=== PATIENT | male | born 1950 | race Caucasian/White ===

== ENCOUNTER → 2022-06-14 10:56 | Outpatient (BNVA) | payer OTHER, SELFPAY | PROVIDERS: Visit Provider Podiatrist Foot & Ankle Surgery | DX: E11.621 Type 2 diabetes mellitus with foot ulcer (principal); L97.514 Non-pressure 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; E11.42 Type 2 diabetes mellitus with diabetic polyneuropathy; Z89.419 Acquired absence of unspecified great toe | CPT/HCPCS: 11044; 73630; 99204 ==

== ENCOUNTER 2022-06-14 11:33 | Outpatient (CLI) | payer OTHER, SELFPAY | END 2022-06-14 11:34 | disposition home or self-care (01) | LOC: SPT 11:40 | PROVIDERS: Visit Provider Podiatrist Foot & Ankle Surgery | DX: E11.621 Type 2 diabetes mellitus with foot ulcer (principal); L97.509 Non-pressure chronic ulcer of other part of unspecified foot with unspecified severity | CPT/HCPCS: 87070; 87075; 87077; 87205; 97760; 99204; L4361 ==

== ENCOUNTER → 2022-06-14 12:41 | Outpatient (BNVA) | payer OTHER, SELFPAY | PROVIDERS: Visit Provider Podiatrist Foot & Ankle Surgery | DX: Z01.89 Encounter for other specified special examinations (principal) | CPT/HCPCS: 87070; 87075; 87205 ==

== ENCOUNTER 2022-06-22 05:54 | Day surgery (SDC) | payer OTHER, SELFPAY ==
[2022-06-21 17:27] VITALS: BMI 31.4
[2022-06-22] VITALS (9 sets, daily range): BP systolic 107–146; BP diastolic 69–90; PULSE 80–104; RESP 12–20; TEMP 36.3–36.6; O2SAT 94–96
[2022-06-22] MEDS: sodium chloride 0.9% 1,000 ML 30 ML IV (06:38)
--- NOTE | 2022-06-22 06:38 | ANES.PREANE2 ---
Pre-Anesthetic Assessment Height/Weight: Height 1.88 m Weight 111.13 kg O2 Del Method 06/22/22 06:08 Preop Diagnosis: Osteomyelitis right foot Operation Date: 06/22/22 07:00 Proposed Procedures p Transmetatarsal amputation and possible tendo Achilles lengthening right lower extremity 46320,60226,L97.524(Right) - Zachary Melendez DPM s Amputation Transmetatarsal(Right) - Zachary Melendez DPM Familial anesthetic complications: None Was Beta Flor taken within 24 hours: N/A Was Clonidine taken within 24 hours: N/A Last intake: Intake Last Liquid Date 06/21/22 Last Liquid Time 23:00 Last Solid Date 06/21/22 Last Solid Time 17:30 Social Tobacco and No alcohol Exam alert, oriented x 3, clear to auscultation bilaterally and regular rate & rhythm Airway Mallampati: Class III Dentition: full Pulmonary Chronic Obstructive Pulmonary Disease S/p L lung resection CV/HEM Hypertension Metabolic Patient states he's not diabetic 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 Anesthetic Plan ASA status: 3 Anesthesia: MAC Risk of > 500 ml blood loss (7ml/kg in children): No Medications/Allergies Home Medications Medication Instructions Recorded Confirmed Last Taken Type Cam Boot to the right foot #1 ea 06/14/22 06/14/22 Unknown Rx albuterol sulfate 90 mcg/actuation 2 puff inhalation PRN PRN Wheezing 06/14/22 06/22/22 06/22/22 History aerosol inhaler amoxicillin 875 mg-potassium 1 tab PO BID #14 tabs 06/14/22 06/22/22 06/21/22 Rx clavulanate 125 mg tablet prednisone 10 mg tablet 10 mg PO BID 06/14/22 06/22/22 06/21/22 History diltiazem HCl 240 mg capsule,24 240 mg PO DAILY 06/21/22 06/22/22 06/21/22 History hr,extended release fluticasone furoate 200 1 inh inhalation DAILY 06/21/22 06/22/22 06/21/22 History mcg-vilanterol 25 mcg/dose inhalation powder (Breo Ellipta) hydrochlorothiazide 25 mg tablet 25 mg PO DAILY 06/21/22 06/22/22 06/21/22 History lisinopril 20 mg tablet 20 mg PO DAILY 09/05/0506/22/22 06/21/22 History rivaroxaban 20 mg tablet (Xarelto) 20 mg PO DAILY 06/21/22 06/22/22 06/21/22 History tamsulosin 0.4 mg capsule 0.4 mg PO DAILY 06/21/22 06/22/22 06/21/22 History Allergies Allergy/AdvReac Type Severity Reaction Status Date / Time No Known Allergies Allergy Verified 06/22/22 06:14 Data Anesthesia : 06/22/22 06:19 Cardiac Studies: No Data to Display
--- NOTE | 2022-06-22 06:43 | W.PM.OPSUD ---
Surgery/Procedure H&P Update DATE OF PROCEDURE: June 22, 2022 DATE H&P PERFORMED: 06/15/22 CHANGES TO PREVIOUS DOCUMENTATION: None PREOP DIAGNOSIS: Osteomyelitis right foot PLANNED PROCEDURE: Operation Date: 06/22/22 07:00 Proposed Procedures p Transmetatarsal amputation and possible tendo Achilles lengthening right lower extremity 08526,29548,L97.524(Right) - Zachary Melendez DPM s Amputation Transmetatarsal(Right) - Zachary Melendez DPM
[2022-06-22] MEDS: clindamycin 600 MG/50 ML PREMIX 100 MG IV (06:58)
[2022-06-22 07:05] LABS: Anion Gap 15.2 (5-19); Blood Urea Nitrogen 27 mg/dL (8-23); Calcium 9.7 mg/dL (8.5-10.5); Carbon Dioxide 24 mmol/L (22-29); Chloride 103 mmol/L (98-107); Glucose 116 mg/dL (65-115); Osmolality Calculated 292 mOsm/kg (285-295); Potassium 4.2 mmol/L (3.5-5.1); Sodium 138 mmol/L (136-145)
--- NOTE | 2022-06-22 08:01 | XR_ITS ---
WS: [id number] FOOT RIGHT TECHNIQUE: 3 views of the right foot CLINICAL INFORMATION: post op COMPARISON: None. FINDINGS: Postoperative changes surgical amputation 1st through 5th mid metatarsals. Surgical carter. Postoper ative changes are new since June 13, 2012. Screw fixation across the tibiotalar joint. Fibula fixat ion francois. XR/XR foot RT min 3V* [id number] IMPRESSION: Normal for postoperative purposes.
--- NOTE | 2022-06-22 08:01 | PM.OP ---
Operative Report Date of procedure: June 22, 2022 Pre-op diagnosis: Preop Diagnosis Osteomyelitis right foot Post-op diagnosis: Same Procedure done: Right transmetatarsal amputation Implants: 2-0 Vicryl, 3-0 Vicryl, skin carter, 3-0 nylon Specimens removed/disposition: None Pathology: Right third, fourth and fifth toes sent to pathology for permanent Surgeon: Zachary Melendez D.P.M. Link Trainer Mechanic: Adriel Garcia Jaylee Estimated blood loss: 25 29 Brief History: 16-wsht-yrq-old diabetic male with neuropathy with history of right second and great toe amputation presents with a wound probing to bone subthird metatarsal head of the right foot also tracks proximally.? There is a cavernous wound probes deep directly to bone corresponds to area of soft tissue emphysema this was directly probed and debrided.? Predebridement wound measurements 2 cm x 2.5 cm x 2 cm to the right plantar forefoot.? Post debridement wound measurements 2.5 cm x 2.8 cm x 2 cm.? Wound was excisionally and sharply debrided with a dermal curette down to and including bone, was able to debride the plantar aspect of the third metatarsal head of the right foot.? Hemostasis was achieved via manual pressure.? No anesthesia was required secondary to neuropathy.? Area was dressed with Betadine wet-to-dry, offloaded with cam boot.? Will continue with doxycycline previously prescribed twice daily.? Post debridement wound cultures both aerobic and anaerobic taken and sent to microbiology for culture and sensitivity.? Patient is requesting an amputation of the forefoot states that he is tired of the weekly visits for wound care and has noticed a significant worsening of the appearance of the wound, smell of the wound and depth of the wound.? He is wishing to pursue a more definitive level of amputation that will allow him to return to his hobbies and everyday living.? Recommended a transmetatarsal amputation to the right foot with possible Achilles lengthening.? Risks include but are not limited to pain, bleeding, numbness, infection, transfer pressure, transfer lesion, surgical site dehiscence, new wound formation, need for advanced offloading, need for antibiotic treatment and at risk for higher level of amputation.? Patient is agreeable wishes to proceed can be done outpatient as patient is clinically stable. Procedure: Under mild sedation the patient was brought to the operating room and remained on the gurney in supine position. A timeout was performed. Anesthesia was then administered by the anesthesia service. Local anesthesia was injected by myself consisting of 30 cc of 0.5% Marcaine plain in a right ankle block fashion. Well-padded pneumatic tourniquet applied to the right ankle. The right lower extremity was then scrubbed, prepped and draped utilizing normal aseptic technique. No Esmarch or extenuation was performed. There is a full-thickness wound right plantar forefoot probes to bone both of the first metatarsal and third metatarsal. A fishmouth incision full-thickness down to bone was performed with a #10 blade to the right forefoot maintaining a long plantar flap. The metatarsals 1, 2, 3, 4 and 5 were transected at the distal diaphyseal portion utilizing a sagittal saw and all rough edges smoothed with a hand rasp. The right forefoot was passed from operative field and the forefoot including toes 3, 4 and 5 were sent to pathology for permanent. The incision was flushed with copious amounts of sterile saline solution. All bleeders were ligated and cauterized as necessary. The extensor and flexor tendons were transected under traction followed by a second saline flush. The flap was then closed utilizing 2-0 Vicryl, 3-0 Vicryl, skin carter and 3-0 nylon. No tension on the incision appreciated. Margins were well coapted. Tourniquet was deflated and a prompt hyperemic response was noted to the distal amputation site of the right foot. Dressing consisting of Adaptic, sterile 4 x 4, fluff, ABD pad, Kerlix, Ruben wrap and a multilayer compressive posterior splint with ankle in neutral position was applied. Patient tolerated the procedure and anesthesia well and was transferred to the PACU with vital signs able Christeson checked. Following a period of postop monitoring will be discharged home and will continue with oral antibiotics previously prescribed. Hydrocodone 5/325 mg sent to pharmacy of choice electronically. Patient is to keep his postoperative dressing clean, dry and intact until follow-up visit next week. He was given my cell phone number is to contact with any questions or concerns.
--- NOTE | 2022-06-22 08:04 | SUR.PHASEI ---
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 PT ORIENTED X 3 DENIES PAIN AND ANY CHEST PRESSURE OR DISCOMFORT, MONITOR IRREGULAR RYTHM, AFIB/A FLUTTER, IV TO RT WRIST #20 IV NS 150ML UP AT KVO RATE. 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
--- NOTE | 2022-06-22 08:12 | ECG_ITS ---
[facility] Test Date: 2022-06-22 Pat Name: Jace Christie Department: Room: Gender: Male Machine Installer: : 1950 Requested By: Danna Dodd Order Number: [id number] Frederick MD: Shilo Bagley M.D. Measurements Intervals [place] Rate: 89 P: MD: QRS: 44 QRSD: 85 T: 56 QT: 348 QTc: 424 Interpretive Statements ATRIAL FIBRILLATION No previous ECG available for comparison Electronically Signed On 06-23-2022 14:33:51 CDT by Shilo Bagley M.D. [id number]
== END 2022-06-22 09:00 | disposition home or self-care (01) ==
PROVIDERS: Anesthesiology; PCP Podiatrist Foot & Ankle Surgery; Visit Provider Podiatrist Foot & Ankle Surgery
PROC: (CPT 28261; principal; 2022-06-22 07:00)
DX: M86.8X7 Other osteomyelitis, ankle and foot (principal); J44.9 Chronic obstructive pulmonary disease, unspecified; Z90.2 Acquired absence of lung [part of]; I10 Essential (primary) hypertension
CPT/HCPCS: 28810 ×3; 36415; 73630; 80048; 88305; 88311; 93005; J2370; J2704; J3010; J3490; J7030

== ENCOUNTER 2022-07-01 16:37 | Emergency (ER) | payer OTHER, SELFPAY ==
[2022-07-01 16:41] VITALS: BP 105/53; PULSE 111; RESP 22; TEMP 36.3; O2SAT 95; BMI 31.4
--- NOTE | 2022-07-01 17:08 | USR_ITS ---
PROCEDURE INFORMATION: Exam: US Duplex Left Upper Extremity Veins, Limited Exam date and time: 07/01/2022 5:17 PM Age: 72 years old Clinical indication: Edema, localized; Upper extremity, left; Patient HX: PT had foot surgery 1 week ago. I see no iv site in lt arm. Obvious iv sites in RT. ; Additional info: R/O dvt, redness and swelling TECHNIQUE: Imaging protocol: Real-time Duplex ultrasound of the Left Upper Extremity with 2-D ventura scale, color Doppler flow and spectral waveform analysis with image documentation. Limited exam focused on the left upper extremity veins. COMPARISON: No relevant prior studies available. FINDINGS: Left deep veins: Unremarkable. Axillary and brachial veins are patent throughout without thrombus. Normal Doppler waveforms. Normal compressibility and/or augmentation response. Visualized internal jugular and subclavian veins are patent. Left superficial veins: Unremarkable. Visualized cephalic and basilic veins are patent without thrombus. Soft tissues: There is edema in the soft tissues. US/[place] [id number] IMPRESSION: No evidence of deep vein thrombosis. There is edema in the soft tissues.
--- NOTE | 2022-07-01 17:08 | W.ED.EXTPRO ---
HPI - Extremity Problem General: Chief complaint: Extremity Problem,Nontraumatic Stated complaint: Left Arm swelling Time Seen by Provider: 07/01/22 17:00 History of Present Illness: 72-year-old male patient comes in today with complaints of redness and swelling to the left upper extremity. Patient has a chronic history of diabetes and recent surgery for right foot amputation. Patient was started on doxycycline Sunday for cellulitis. Associated symptoms: Deny fever(s) Review of Systems Const: Denies: fever(s) Musc: Reports: extremity pain and extremity swelling Physical Exam Const: COMMON NORMALS: alert HENMT: COMMON NORMALS: normocephalic HEAD & SCALP: normocephalic Neck/C-Spine: COMMON NORMALS: full ROM Resp: COMMON NORMALS: normal respiratory effort Cardio: RATE: tachycardic GI: COMMON NORMALS: Soft to palpation PALPATION: Yes Soft to palpation Extremity: NARRATIVE EXTREMITY EXAM: Patient has redness and swelling extending from the distal upper arm to the hand. Pulses are intact. LEFT UPPER EXTREMITY: Yes elbow joint Left elbow: Yes inspection, Yes lower arm Left lower arm: Yes inspection and Yes wrist Left wrist: Yes inspection Neuro: SENSORIUM/ORIENTATION: Yes alert Course Vital Signs: Vital signs: Vital Signs Temperature 97.4 F L 07/01/22 16:41 Pulse Rate 92 07/01/22 18:30 Respiratory Rate 18 07/01/22 18:30 Blood Pressure 122/76 07/01/22 18:00 Pulse Oximetry 98 07/01/22 18:30 Oxygen Delivery Me thod 07/01/22 16:41 MDM - Extremity (Nontraumatic) Medical Decision Making Patient comes in today for concerns of redness and swelling to the left upper arm. Patient denies any falls or injury. Patient has had recent surgery for partial amputation of the right foot. Patient was seen yesterday and started on doxycycline. Patient is afebrile in the ER. Patient does have some mild increase in pulse and respirations. Differential diagnosis includes cellulitis, DVT, thrombophlebitis. Ultrasound noted no DVT. Patient has only taken 2 doses of his doxycycline. I recommended patient continue on the doxycycline and elevate the extremity on pillows to help with swelling. Patient should follow-up with primary care in 2 to 3 days for recheck. Return to ER for worsening symptoms such as high fever or inability to hold fluids down. Patient reported understanding and agreed to plan. Lab Data Radiology Impressions Venous Duplex 07/01/22 17:08 IMPRESSION: No evidence of deep vein thrombosis. There is edema in the soft tissues. Discharge Plan Discharge Patient Disposition: Home Clinical Impression: Cellulitis Qualifiers: Site of cellulitis: extremity Site of cellulitis of extremity: upper extremity Laterality: left Qualified Code(s): L03.114 - Cellulitis of left upper limb Condition: Stable Prescriptions: No Action albuterol sulfate 90 mcg/actuation HFA aerosol inhaler 2 puff inhalation PRN PRN (Reason: Wheezing) prednisone 10 mg tablet 10 mg PO BID amoxicillin-pot clavulanate 875-125 mg tablet 1 tab PO BID Qty: 14 7RF (DME) Cam Boot to the right foot See Rx Instructions .Route .MEDSUPPLY Qty: 1 0RF Rx Instructions: As directed doxycycline hyclate 100 mg capsule 100 mg PO BID 14 Days Qty: 28 0RF (DME) Crutches See Rx Instructions .Route .MEDSUPPLY Qty: 1 0RF Rx Instructions: As directed by HOME lisinopril 20 mg Tablet 20 mg PO DAILY diltiazem HCl 240 mg Capsule,Extended Release 24 Hr 240 mg PO DAILY tamsulosin 0.4 mg Capsule 0.4 mg PO DAILY hydrochlorothiazide 25 mg Tablet 25 mg PO DAILY Xarelto 20 mg Tablet 20 mg PO DAILY Rx Instructions: must administer with evening meal fluticasone furoate-vilanterol [Breo Ellipta] 200-25 mcg/dose Blister With Device 1 inh INHALATION DAILY Discharge Orders: Discharge ED (Routine); Ordered 07/01/22 Ordered By: Elfego Martínez Referrals: Zachary Melendez DPM [Primary Care Provider] - Discharge Diet: Usual diet Discharge Activity: Increase activity as tolerated Patient Instructions: Cellulitis (ED) Activity Restrictions/Additional Instructions: Home and elevate left extremity on pillows to keep at or above the level of the heart. Continue with doxycycline 100 mg twice a day. Follow-up with primary care in 2 to 3 days for recheck. Return to ER for worsening symptoms such as fever greater than 100.4, uncontrolled pain, or new concerns. Coding Level of Care Code ED Engine Research Engineer for Len Fwd Exam Detailed
[2022-07-01 17:50] VITALS: BP 104/52; PULSE 102; RESP 19; O2SAT 93
--- NOTE | 2022-07-01 17:59 | PC.NURSE ---
pt reported edema to LUE and LLE for last few days. reports today his arm started weaping. denies any pain, denies chest pain, dyspnea, fevers, or any known bug bites. pt reports he checked for bites and didnt see any. pt reports he has hx of copd, asthma, and afib and has been out of afib meds and blood thinner for last couple days. reports they are being mailed to him and he hasnt received them yet. mild expiratory wheezes heard throughtout. significant edema noted to LLE and LUE with weaping visualized. speech clear. speaking in complete sentences without difficulty. pt connected to VS monitor including threat monitoring analyst.
[2022-07-01 18:00] VITALS: BP 122/76; PULSE 96; RESP 22; O2SAT 95
[2022-07-01] MEDS: rivaroxaban 10 mg Tablet 20 MG PO (18:28)
[2022-07-01] MEDS: dilTIAZem ER (24HR) 240 mg Capsule PO (18:28)
[2022-07-01 18:30] VITALS: PULSE 92; RESP 18; O2SAT 98
== END 2022-07-01 18:43 | disposition home or self-care (01) ==
PROVIDERS: Emergency Provider Nurse Practitioner Family; PCP Podiatrist Foot & Ankle Surgery
DX: L03.114 Cellulitis of left upper limb (principal); M79.89 Other specified soft tissue disorders
CPT/HCPCS: 93971; 99284

== ENCOUNTER → 2022-07-13 14:27 | Outpatient (BNVA) | payer OTHER, SELFPAY | PROVIDERS: PCP Podiatrist Foot & Ankle Surgery; Visit Provider Podiatrist Foot & Ankle Surgery | DX: Z98.890 Other specified postprocedural states (principal); Z89.411 Acquired absence of right great toe; Z89.421 Acquired absence of other right toe(s); L97.519 Non-pressure chronic ulcer of other part of right foot with unspecified severity; E11.42 Type 2 diabetes mellitus with diabetic polyneuropathy; E11.621 Type 2 diabetes mellitus with foot ulcer; T87.81 Dehiscence of amputation stump | CPT/HCPCS: 11042; 99024 ==

== ENCOUNTER → 2022-07-20 14:23 | Outpatient (BNVA) | payer OTHER, SELFPAY | PROVIDERS: PCP Podiatrist Foot & Ankle Surgery; Visit Provider Podiatrist Foot & Ankle Surgery | DX: E11.42 Type 2 diabetes mellitus with diabetic polyneuropathy (principal); Z89.419 Acquired absence of unspecified great toe; Z89.431 Acquired absence of right foot; T87.81 Dehiscence of amputation stump; Z98.890 Other specified postprocedural states; E11.621 Type 2 diabetes mellitus with foot ulcer; L97.519 Non-pressure chronic ulcer of other part of right foot with unspecified severity | CPT/HCPCS: 99024 ==

== ENCOUNTER → 2022-07-27 13:45 | Outpatient (BNVA) | payer OTHER, SELFPAY | PROVIDERS: PCP Podiatrist Foot & Ankle Surgery; Visit Provider Podiatrist Foot & Ankle Surgery | DX: E11.42 Type 2 diabetes mellitus with diabetic polyneuropathy (principal); E11.621 Type 2 diabetes mellitus with foot ulcer; L97.519 Non-pressure chronic ulcer of other part of right foot with unspecified severity; Z89.419 Acquired absence of unspecified great toe; Z89.431 Acquired absence of right foot; T87.81 Dehiscence of amputation stump; Y83.8 Other surgical procedures as the cause of abnormal reaction of the patient, or of later complication, without mention of misadventure at the time of the procedure; Z98.890 Other specified postprocedural states | CPT/HCPCS: 99214 ==

== ENCOUNTER → 2022-08-03 14:23 | Outpatient (BNVA) | payer OTHER, SELFPAY | PROVIDERS: PCP Podiatrist Foot & Ankle Surgery; Visit Provider Podiatrist Foot & Ankle Surgery | DX: Z98.890 Other specified postprocedural states (principal); E11.42 Type 2 diabetes mellitus with diabetic polyneuropathy; Z89.431 Acquired absence of right foot; T87.81 Dehiscence of amputation stump; E11.621 Type 2 diabetes mellitus with foot ulcer; L97.519 Non-pressure chronic ulcer of other part of right foot with unspecified severity; Y83.8 Other surgical procedures as the cause of abnormal reaction of the patient, or of later complication, without mention of misadventure at the time of the procedure | CPT/HCPCS: 99214 ==

== ENCOUNTER → 2022-08-09 13:55 | Outpatient (BNVA) | payer OTHER, SELFPAY | PROVIDERS: PCP Podiatrist Foot & Ankle Surgery; Visit Provider Podiatrist Foot & Ankle Surgery | DX: E11.621 Type 2 diabetes mellitus with foot ulcer (principal); L97.514 Non-pressure 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; T87.81 Dehiscence of amputation stump; E11.42 Type 2 diabetes mellitus with diabetic polyneuropathy; Z89.431 Acquired absence of right foot | CPT/HCPCS: 99214; 99215 ==

== ENCOUNTER 2022-08-11 10:42 | Day surgery (SDC) | payer OTHER, SELFPAY ==
[2022-08-10 15:06] VITALS: BMI 30.8
[2022-08-11] VITALS (8 sets, daily range): BP systolic 109–137; BP diastolic 54–74; PULSE 66–75; RESP 16–18; TEMP 36.4–37.4; O2SAT 93–98
--- NOTE | 2022-08-11 11:56 | W.PM.OPSUD ---
Surgery/Procedure H&P Update DATE OF PROCEDURE: August 11, 2022 DATE H&P PERFORMED: 08/09/22 CHANGES TO PREVIOUS DOCUMENTATION: none PREOP DIAGNOSIS: Osteomyelitis right foot PLANNED PROCEDURE: Operation Date: 08/11/22 12:20 Proposed Procedures p Incision and debridement down to bone right foot 32495,M86.471(Not Applicable) - Zachary Melendez DPM
[2022-08-11] MEDS: sodium chloride 0.9% 1,000 ML 30 ML IV (11:59)
[2022-08-11 12:11] LABS: Glucose Point of Care 120 mg/dL (70-110)
--- NOTE | 2022-08-11 12:12 | P.ANESASSM_ITS ---
Pre-Anesthetic Assessment Height/Weight: Height 1.88 m Weight 108.862 kg Temp Pulse Resp BP Pulse Ox O2 Del Method 97.6 F 68 18 137/74 97 08/11/22 11:05 08/11/22 11:05 08/11/22 11:05 08/11/22 11:05 08/11/22 11:05 08/11/22 11:06 Preop Diagnosis: Osteomyelitis right foot Operation Date: 08/11/22 12:20 Proposed Procedures p Incision and debridement down to bone right foot 65006,M86.471(Not Applicable) - Zachary Melendez DPM Familial anesthetic complications: none Was Beta Flor taken within 24 hours: N/A Was Clonidine taken within 24 hours: N/A Last intake: Intake Last Liquid Date 08/10/22 Last Liquid Time 22:30 Last Solid Date 08/10/22 Last Solid Time 22:30 Last Intake: 22:30 Social Tobacco and No alcohol 1/2 pack(s) per day 50+ pack years Exam alert, oriented x 3, clear to auscultation bilaterally (dim left upper) and regular rate & rhythm Airway Submandibular: within normal limits Cervical ROM: within normal limits Dentition: partials Pulmonary Chronic Obstructive Pulmonary Disease, Cough and Exertional Dyspnea CV/HEM Atrial Fibrillation (hx) and Hypertension None reported Hepatic None reported GI None reported Metabolic Diabetes Mellitus (avg 100-150) [facility] [place] None reported Neuropsych None reported Anesthetic Plan ASA status: 3 Anesthesia: MAC Medications/Allergies Home Medications Medication Instructions Recorded Confirmed Last Taken Type Cam Boot to the right foot #1 ea 06/14/22 08/09/22 Unknown Rx albuterol sulfate 90 mcg/actuation 2 puff inhalation PRN PRN Wheezing 06/14/22 08/11/22 08/11/22 08:00 History aerosol inhaler prednisone 10 mg tablet 10 mg PO BID 06/14/22 08/11/22 08/11/22 History diltiazem HCl 240 mg capsule,24 240 mg PO DAILY 06/21/22 08/11/22 08/11/22 History hr,extended release fluticasone furoate 200 1 inh inhalation DAILY 06/21/22 08/11/22 08/11/22 History mcg-vilanterol 25 mcg/dose inhalation powder (Breo Ellipta) hydrochlorothiazide 25 mg tablet 25 mg PO DAILY 06/21/22 08/11/22 08/10/22 History lisinopril 20 mg tablet 20 mg PO DAILY 06/21/22 08/11/22 08/10/22 History rivaroxaban 20 mg tablet (Xarelto) 20 mg PO DAILY 06/21/22 08/11/22 08/09/22 History tamsulosin 0.4 mg capsule 0.4 mg PO DAILY 06/21/22 08/11/22 08/11/22 History Crutches #1 ea 06/22/22 08/09/22 Unknown Rx hydrocodone 5 mg-acetaminophen 325 1 tab PO Q6H PRN pain 7 days #14 08/10/22 Unknown Rx mg tablet tabs clindamycin HCl 300 mg capsule 300 mg PO DAILY 08/11/22 08/11/22 08/11/22 History Allergies Allergy/AdvReac Type Severity Reaction Status Date / Time No Known Allergies Allergy Verified 08/10/22 15:02 Current Medications Generic Name Dose Route Start Last Admin Trade Name Freq PRN Reason Stop Dose Admin Sodium Chloride 1,000 mls @ 30 mls/hr 08/11/22 11:00 08/11/22 11:59 Sodium Chloride 0.9% IV 08/12/22 10:59 30 mls/hr .Q24H JOSÉ MIGUEL Administration PFSH Anesthesia Social History Smoking and tobacco status: current every day smoker Data Anesthesia : 08/11/22 11:30 Cardiac Studies: No Data to Display
[2022-08-11] MEDS: clindamycin 600 MG/50 ML PREMIX 100 MG IV (12:20)
[2022-08-11 12:25] LABS: Blood Urea Nitrogen 34 mg/dL (8-23); Calcium 9.4 mg/dL (8.5-10.5); Carbon Dioxide 22 mmol/L (22-29); Chloride 102 mmol/L (98-107); Glucose 107 mg/dL (65-115); Osmolality Calculated 294 mOsm/kg (285-295); Sodium 138 mmol/L (136-145)
[2022-08-11 12:29] LABS: Anion Gap 18.3 (5-19); Potassium 4.3 mmol/L (3.5-5.1)
--- NOTE | 2022-08-11 13:35 | P.OP_ITS ---
Operative Report Date of procedure: 08/11/2022 Pre-op diagnosis: Preop Diagnosis Osteomyelitis right foot Post-op diagnosis: Wound probes to bone, osteomyelitis right foot Post-op findings: Wound probed to bone with exposed first metatarsal right foot Procedure done: Incision and debridement down to and including bone right foot. CPT code 71839 Insertion of antibiotic impregnated cement spacer right foot. CPT code 30346 Implants: 3-0 Vicryl, 3-0 nylon, Simplex P with tobramycin. Specimens removed/disposition: Right first metatarsal bone sent to microbiology for gram stain and culture. Pathology: None Surgeon: Zachary Melendez D.P.M. Electrician Rectifier Maintenance: Padmini Estimated blood loss: 5 See intraoperative documentation IV fluids: None Urine output: None Complications: None Findings: Devitalized bone at the very distal remaining aspect of the right first metatarsal. Brief History: At last visit patient was placed on Levaquin daily 750 mg has tolerated this well.? Has had persistent dehiscence, wound exposed bone for 2 weeks, no additional soft tissue coverage or granulation tissue appreciated.? Serous drainage that is persistent.? Has been doing local wound care, oral antibiotics, decreased activity, offloading and home health.? Patient is getting frustrated with the persistence of the wound at this location, states that this is where it all started and initially lost his great toe and is continued to progress.? Discussed revisional TMA versus incision and debridement down to bone at the right first metatarsal, beveling of the right first metatarsal, additional bone biopsy and primary delayed closure.? I reviewed at length with the patient, the risks, potential complications, benefits, alternatives, expectations, and typical outcomes associated with the surgery. The risks and potential complications were explained in detail, including but not limited to infection, wound dehiscence or soft tissue complications, bleeding and hematoma, chronic edema, neuritis or nerve damage producing numbness or chronic pain, CRPS, failure to relieve pain or worsening pain, thick / painful / unsightly scar, limited motion / stiffness, malposition, delayed union, malunion, or nonunion, fracture, reaction to implants, anesthetic complications, venous thromboembolism, and deformity recurrence.? I discussed the notion of no regrets with the patient as it pertains to complications and outcomes. The patient seemed to understand the nature of the proposed care and required convalescence. They asked appropriate questions, answered to their satisfaction. They are aware no guarantees can be made as to a satisfactory outcome and they understand there may be other possible unforeseen complications or outcomes not listed here that will be treated accordingly if they arise. There were no written or implied guarantees given to the patient. They gave informed consent to proceed.? Patient will continue daily dressing changes with Iodosorb, continue offloading with cam boot, continue keeping the right foot clean and dry and avoid getting wet when showering.? Patient is n.p.o. since midnight. Wishes to proceed with surgical debridement, informed consent signed by patient and myself. I initialed patient's right lower extremity. Procedure: Under mild sedation the patient was brought to the operating room and remained on the gurney in supine position. A timeout was performed. Anesthesia was then administered by the anesthesia service. Local anesthesia injected by myself consisting of one-to-one mixture lidocaine and Marcaine plain, 1% lidocaine and 0.25% Marcaine total of 25 cc utilized and a proximal Glynn block fashion to the right foot. Well-padded pneumatic tourniquet applied to the right ankle. The right lower extreme was then scrubbed, prepped and draped utilizing normal aseptic technique. Right foot was elevated and the tourniquet inflated to 250 mmHg. Attention was directed to the right distal medial foot where a full-thickness wound with exposed first metatarsal was visualized. First metatarsal exposed into the wound had a dusky yellowish-ventura color with decreased density. The wound was excised circumferentially down to healthier margins utilizing a #15 blade followed by resection of the distal aspect of the right first metatarsal utilizing a sagittal saw in a beveled fashion, bone was passed from the operative field and sent to microbiology for gram stain and culture. The level of resection appear to have viable appropriate density in color at the first metatarsal osteotomy site. Power rasp utilized to smooth all edges of the first metatarsal these were well rounded and smoothed. The incision was flushed with copious amounts of sterile skin solution. After having performed the above sharp debridement utilizing pickups and a #15 blade of all devitalized soft tissue down to bone the incision was irrigated with copious amounts of sterile saline solution. The medullary canal of the first metatarsal was packed with Simplex P with tobramycin. Further irrigation was performed followed by wound closure with 3-0 Vicryl and 3-0 nylon with excellent skin apposition without excessive tension. Incision was dressed with Adaptic, sterile 4 x 4's, Kerlix, Ruben wrap and cam boot was then applied. Tourniquet was deflated and a prompt hyperemic response was noted to the distal amputation site of the right foot. Patient tolerated the procedure well and was transferred to the PACU with vital signs stable and vascular status intact. He will continue antibiotics previously prescribed. Follow-up in podiatry clinic next week. He is to reduce his activities, rest and elevate his right foot.
--- NOTE | 2022-08-11 16:21 | ANE.PACU2 ---
Inpatient post-anesthesia follow up: Airway intact: Yes Vital signs: Temperature 98.0 F Pulse Rate 70 Respiratory Rate 18 Blood Pressure 127/67 Pulse Oximetry 96 Oxygen Delivery Me thod Room Air Oxygen Flow Rate 6 Fraction of Inspir ed Oxygen Hydration adequate: Yes Nausea and vomiting: No Pain level: 2 Mental status: Baseline
== END 2022-08-11 14:15 | disposition home or self-care (01) ==
PROVIDERS: Visit Provider Podiatrist Foot & Ankle Surgery
PROC: (CPT 11981; principal; 2022-08-11 12:10)
DX: M86.8X7 Other osteomyelitis, ankle and foot (principal); F17.210 Nicotine dependence, cigarettes, uncomplicated; I48.91 Unspecified atrial fibrillation; I10 Essential (primary) hypertension; E11.9 Type 2 diabetes mellitus without complications
CPT/HCPCS: 11981; 28005; 36416; 80048; 82962; 87070; 87077; 87176; 87186; 87205; J1100; J2405; J2704; J3010; J3490; J7030

== ENCOUNTER → 2022-08-17 15:25 | Outpatient (BNVA) | payer OTHER, SELFPAY | PROVIDERS: Visit Provider Podiatrist Foot & Ankle Surgery | DX: Z98.890 Other specified postprocedural states (principal); E11.42 Type 2 diabetes mellitus with diabetic polyneuropathy; Z89.431 Acquired absence of right foot; T87.81 Dehiscence of amputation stump; E11.621 Type 2 diabetes mellitus with foot ulcer; L97.514 Non-pressure 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 | CPT/HCPCS: 99024 ==

== ENCOUNTER 2022-08-25 11:27 | Inpatient (IN) | payer OTHER, SELFPAY ==
[2022-08-25] VITALS (8 sets, daily range): BP systolic 122–152; BP diastolic 65–87; PULSE 66–81; RESP 18–24; TEMP 36.3–36.6; O2SAT 84–95; BMI 30.8
--- NOTE | 2022-08-25 12:20 | XRR_ITS ---
PROCEDURE INFORMATION: Exam: XR Chest Exam date and time: 08/25/2022 1:27 PM Age: 72 years old Clinical indication: Shortness of breath; Prior surgery; Surgery date: <1 month; Surgery type: Left lung due to trauma; Patient HX: SOB, pressure/fluid, coughing up mucous, pain in left side of chest that radiates around to the mid back lower lung. HX of left lung surgery. X 2 wks TECHNIQUE: Imaging protocol: Radiologic exam of the chest. Views: 1 view. COMPARISON: No relevant prior studies available. FINDINGS: Lungs: Interstitial congestion right lower lobe. The lungs are otherwise clear Pleural spaces: Unremarkable. No pleural effusion. No pneumothorax. Heart/Mediastinum: Unremarkable. No cardiomegaly. Bones/joints: Postoperative rib resection is seen the left hemithorax XR/XR chest 1V portable [id number] IMPRESSION: 1. Interstitial congestion right lower lobe 2. Postoperative 7th rib resection left hemithorax 3. No acute findings.
[2022-08-25 12:30] LABS: Basophils % 0.1 %; Hematocrit 37.5 % (42.0-52.0); Hemoglobin 12.5 g/dL (11.7-16.6); Lymphocytes # 0.4 10^3/uL (0.8-4.8); Lymphocytes % 3.8 %; Mean Corpuscular HGB Conc 33.3 g/dL (30.0-36.0); Mean Corpuscular Hemoglobin 30.9 pg (28.0-34.0); Mean Corpuscular Volume 92.6 fl (80-94); Mean Platelet Volume 9.6 fL (7.4-10.4); Monocytes # 0.4 10^3/uL (0.2-0.9); Monocytes % 3.3 %; Neutrophils # 9.61 10^3/uL (1.8-7.7); Neutrophils % 91.4 %; Nucleated Red Blood Cells % 0 %; Platelet Count 221 10^3/cmm (130-400); Red Blood Count 4.05 10^6/uL (4.1-5.3); White Blood Count 10.5 10^3/uL (4.0-10.0)
--- NOTE | 2022-08-25 12:41 | PC.PHAR ---
pt states he takes care of his own medications-pt states he thinks his diltiazem is the 240mg capsule daily that was on a previous entered med list-waiting for [facility] to fax med list
[2022-08-25 12:44] LABS: INR 1.15 (0.8-1.2)
[2022-08-25 12:45] LABS: Partial Thromboplastin Time 28.2 SECONDS (23.9-36.7)
[2022-08-25 12:52] LABS: Alanine Aminotransferase 28 U/L (0-41); Albumin Level 3.7 g/dL (3.5-5.2); Alkaline Phosphatase 114 U/L (40-130); Aspartate Amino Transferase 15 U/L (0-40); Chloride 98 mmol/L (98-107); Globulin 2.4 g/dL (1.3-4.6); Potassium 3.6 mmol/L (3.5-5.1)
[2022-08-25 12:53] LABS: Troponin(5th) Baseline 27 ng/L (0-15)
--- NOTE | 2022-08-25 13:15 | ECG_ITS ---
[facility] Test Date: 2022-08-25 Pat Name: Jace Christie Department: Room: Gender: Male Run Lead: : 1950 Requested By: Jana Araiza Order Number: [id number] Frederick MD: Michelle Torres M.D. Measurements Intervals [place] Rate: 65 P: 74 [place]: 186 QRS: 79 QRSD: 86 T: 81 QT: 385 QTc: 402 Interpretive Statements SINUS RHYTHM WITH OCCASIONAL VENTRICULAR PREMATURE COMPLEXES Compared to ECG 06/22/2022 08:12:05 Ventricular premature complex(es) now present Atrial fibrillation no longer present Electronically Signed On 08-26-2022 14:53:52 CONTROLLER REPAIRER AND TESTER by Michelle Torres M.D. [id number]
--- NOTE | 2022-08-25 13:26 | W.ED.SOB ---
HPI - SOB/Dyspnea General: Chief Complaint: Shortness of Breath/Dyspnea Stated Complaint: sob Time Seen by Provider: 08/25/22 13:04 Source: patient Mode of arrival: ambulatory History of Present Illness: HPI Narrative: 72-year-old male presents emergency room planing increasing shortness of breath over the last 7 days. He has had a productive cough with a low-grade fever. He is not usually on oxygen on arrival here he 73% on room air. Actually progressively worsened after arriving here. Later in the visit he Ginty satting to 84% on room air and was started on nasal cannula at 5 L. Denies any chest or abdominal pain. MD elicited complaint: shortness of breath and cough Pertinent past history: COPD Onset (ago): week(s) (1) Context: recent illness Timing: constant Severity: moderate Exacerbating factors: exertion and coughing Relieving factors: oxygen, rest and bronchodilators Known history of: COPD Associated symptoms: Reports chest congestion and cough; Deny abdominal pain, chest pain, diaphoresis, dizziness, extremity pain, fever(s), hemoptysis, lightheadedness, myalgias, nausea, orthopnea, palpitations, paresthesias, polydipsia, polyuria, rash, sense of impending doom, syncope or vomiting Treatment prior to arrival: none Review of Systems Const: Denies: fever(s), chills, fatigue, malaise or diaphoresis ENMT: Denies: throat pain, ear or mastoid pain, nasal discharge or nasal congestion Card: Denies: chest pain, palpitations, irregular heart rhythm, edema, lightheadedness, syncope or orthopnea Resp: Reports: dyspnea, productive cough, wheezing and chest congestion; Denies: non-productive cough or hemoptysis GI: Denies: abdominal pain, nausea or vomiting : Denies: flank pain, dysuria, urinary frequency or urinary urgency Musc: Denies: extremity pain Skin/Breast: Denies: rash or pruritus Neuro: Denies: dizziness Endo: Denies: polyuria or polydipsia PFS ED PFSH: Medical History COPD exacerbation COVID Dehiscence of amputation stump of right lower extremity Diabetic peripheral neuropathy associated with type 2 diabetes mellitus History of amputation of great toe Hyperglycemia Hypoxemia Non-pressure 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 Surgical History S/P foot surgery, right 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 Family History Denies family history of Cancer Social History Smoking and tobacco status: current every day smoker Physical Exam Const: GENERAL APPEARANCE: cooperative and comfortable ORIENTATION/CONSCIOUSNESS: Yes awake, Yes oriented to person, Yes oriented to place and Yes oriented to time HENMT: COMMON NORMALS: normocephalic, atraumatic and hearing grossly normal bilaterally HEAD & SCALP: normocephalic and atraumatic Resp: AUSCULTATION: rhonchi and wheezes Cardio: COMMON NORMALS: regular rate, regular rhythm and No murmurs present (Cardio) RATE: regular rate RHYTHM: regular rhythm GI: COMMON NORMALS: Soft to palpation and No hepatosplenomegaly present AUSCULTATION: Yes normoactive bowel sounds PALPATION: Yes Soft to palpation, No Tenderness to palpation present (GI), No Guarding due to palpation present (GI) and Yes No hepatosplenomegaly present Extremity: OTHER: To 3+ edema left lower extremity. Surgically absent digits on the right foot with the foot dressing in place. No active drainage no erythema. Neuro: SENSORIUM/ORIENTATION: Yes oriented to person, Yes oriented to place and Yes oriented to time Skin: COMMON NORMALS: no rashes or lesions noted GENERAL SKIN EXAM: no rashes or lesions noted Course Vital Signs: Vital signs: Vital Signs Temperature 97.9 F 08/29/22 11:24 Pulse Rate 68 08/29/22 11:31 Respiratory Rate 16 08/29/22 11:24 Blood Pressure 114/67 08/29/22 11:24 Pulse Oximetry 95 08/29/22 11:24 Oxygen Delivery Me thod 08/29/22 11:24 Oxygen Flow Rate 5 08/29/22 11:23 MDM - SOB/Dyspnea Medical Decision Making Exacerbation COPD with significant oxygen requirement. Will admit discussed with hospitalist with aggressive pulmonary toilet and steroids. Medical Records I reviewed the patient's medical records. Lab Data I reviewed the patient's lab results. 08/28/22 05:00 08/29/22 04:38 Labs/Radiology: Radiology Impressions Chest X-Ray 08/25/22 12:20 IMPRESSION: 1. Interstitial congestion right lower lobe 2. Postoperative 7th rib resection left hemithorax 3. No acute findings. Chest CTA 08/25/22 13:33 IMPRESSION: 1. Negative for pulmonary embolism 2. Diffuse emphysematous changes in both lungs. 3. Chronic interstitial lung disease right mid and lower lobe . 4. Benign cyst left hepatic lobe. 5. Negative for right heart strain . 6. Calcified pleural plaque left lateral chest wall Laboratory Results WBC 10.5 10^3/uL (4.0-10.0) H 08/25/22 12:23 RBC 4.05 10^6/uL (4.1-5.3) L 08/25/22 12:23 Hgb 12.5 g/dL (11.7-16.6) 08/25/22 12:23 Hct 37.5 % (42.0-52.0) L 08/25/22 12:23 MCV 92.6 fl (80-94) 08/25/22 12:23 MCH 30.9 pg (28.0-34.0) 08/25/22 12:23 MCHC 33.3 g/dL (30.0-36.0) 08/25/22 12:23 RDW 15.0 % (12.1-15.1) 08/25/22 12:23 Plt Count 221 10^3/cmm (130-400) 08/25/22 12:23 MPV 9.6 fL (7.4-10.4) 08/25/22 12:23 Neut % (Auto) 91.4 % 08/25/22 12:23 Lymph % (Auto) 3.8 % 08/25/22 12:23 Mason % (Auto) 3.3 % 08/25/22 12:23 Eos % (Auto) 0.0 % 08/25/22 12:23 Baso % (Auto) 0.1 % 08/25/22 12:23 Neut # (Auto) 9.61 10^3/uL (1.8-7.7) H 08/25/22 12:23 Lymph # (Auto) 0.4 10^3/uL (0.8-4.8) L 08/25/22 12:23 Mason # (Auto) 0.4 10^3/uL (0.2-0.9) 08/25/22 12:23 Eos # (Auto) 0.0 10^3/uL (0.0-0.8) 08/25/22 12:23 Baso # (Auto) 0.0 10^3/uL (0.0-0.1) 08/25/22 12:23 Nucleated RBC % (auto) 0 % 08/25/22 12:23 Nucleated RBCs # 0.0 /100WBC 08/25/22 12:23 PT 15.10 SECONDS (12.1-14.9) H 08/25/22 12: INR 1.15 (0.8-1.2) 08/25/22 12: APTT 28.2 SECONDS (23.9-36.7) 08/25/22 12:23 Specimen Type Arterial 08/25/22 14:34 Sample Site Radial, left 08/25/22 14:34 ABG pH 7.43 (7.35-7.45) 08/25/22 14:34 ABG pCO2 35.9 mmHg (35-45) 08/25/22 14:34 ABG pO2 60.1 mmHg (80.0-100.0) L 08/25/22 14:34 ABG HCO3 23.7 mmol/L (22-26) 08/25/22 14:34 ABG O2 Saturation 92.3 08/25/22 14:34 ABG Base Excess -0.4 mmol/L (-2.0-2.0) 08/25/22 14:34 Cesar Test Pos 08/25/22 14:34 A-a O2 Gradient 5.8 mmHg (5-10) 08/25/22 14:34 Hematocrit 36.8 % (42-52) L 08/25/22 14:34 Hgb O2 Saturation 89.8 % (95-100) L 08/25/22 14:34 Carboxyhemoglobin 1.7 %THgb (0.4-20.1) 08/25/22 14:34 Methemoglobin 1.0 % (0.4-1.5) 08/25/22 14:34 Total Hemoglobin 12.0 g/dL (14-18) L 08/25/22 14:34 Sodium 135.0 mmol/L (131-143) 08/25/22 14:34 Potassium 3.6 mmol/L (3.5-5.0) 08/25/22 14:34 Glucose 152.0 mg/dL (70-115) H 08/25/22 14:34 Ionized Calcium 1.2 mmol/L (1.1-1.4) 08/25/22 14:34 O2 Delivery Device Nc 08/25/22 14:34 O2 Liters/Min 5.0 % 08/25/22 14:34 Environmental Auditor ID Cak 08/25/22 14:34 Sodium 134 mmol/L (136-145) L 08/25/22 12:23 Potassium 3.6 mmol/L (3.5-5.1) 08/25/22 12:23 Chloride 98 mmol/L (98-107) 08/25/22 12:23 Carbon Dioxide 21 mmol/L (22-29) L 08/25/22 12:23 Anion Gap 18.6 (5-19) 08/25/22 12:23 BUN 35 mg/dL (8-23) H 08/25/22 12:23 Creatinine 1.1 mg/dL (0.7-1.2) 08/25/22 12:23 GFR Calculation Not Reportable 08/25/22 12:23 Glucose 189 mg/dL (65-115) H 08/25/22 12:23 Calculated Osmolality 291 mOsm/kg (285-295) 08/25/22 12:23 Calcium 9.1 mg/dL (8.5-10.5) 08/25/22 12:23 Total Bilirubin 0.3 mg/dL (0.15-1.2) 08/25/22 12:23 AST 15 U/L (0-40) 08/25/22 12:23 ALT 28 U/L (0-41) 08/25/22 12:23 Alkaline Phosphatase 114 U/L (40-130) 08/25/22 12:23 Troponin T Baseline 27 ng/L (0-15) H 08/25/22 12:23 Troponin T 120 Minute 24.56 ng/L (0-15) H 08/25/22 14:19 Delta Troponin T -2.44 ABS# (0-10) L 08/25/22 14:19 NT-Pro-B Natriuret Pep 159 pg/mL (0-125) H 08/25/22 12:23 Total Protein 6.1 g/dL (6.6-8.7) L 08/25/22 12:23 Albumin 3.7 g/dL (3.5-5.2) 08/25/22 12:23 Globulin 2.4 g/dL (1.3-4.6) 08/25/22 12:23 Procalcitonin 0.07 ng/mL (0-0.5) 08/25/22 14:19 Nasal Influ A H1 2009 PCR Not detected (NOT DETECT) 08/25/22 14:55 Coronavirus 229E (PCR) Not detected (NOT DETECT) 08/25/22 14:55 Influenza A (H1) PCR Not detected (NOT DETECT) 08/25/22 14:55 Influenza A (H3) PCR Not detected (NOT DETECT) 08/25/22 14:55 Influenza Type A (PCR) Not detected (NOT DETECT) 08/25/22 14:55 Influenza Type B (PCR) Not detected (NOT DETECT) 08/25/22 14:55 SARS-CoV-2 (PCR) Detected (NOT DETECT) A 08/25/22 14:55 Discharge Plan Discharge Patient Disposition: Admitted As Inpatient Admit Provider: Stevie Davila Clinical Impression: Acute exacerbation of chronic obstructive airways disease, Diabetic foot ulcer associated with type 2 diabetes mellitus Condition: Stable Coding Level of Care Code ED Restaurant Greeter for Len Davenport
[2022-08-25 13:27] LABS: Blood Urea Nitrogen 35 mg/dL (8-23); Calcium 9.1 mg/dL (8.5-10.5); Carbon Dioxide 21 mmol/L (22-29); NT Pro B Type Natriuretic Pept 159 pg/mL (0-125); Total Bilirubin 0.3 mg/dL (0.15-1.2)
[2022-08-25 13:28] LABS: Anion Gap 18.6 (5-19); Glucose 189 mg/dL (65-115); Osmolality Calculated 291 mOsm/kg (285-295); Sodium 134 mmol/L (136-145); Total Protein 6.1 g/dL (6.6-8.7)
--- NOTE | 2022-08-25 13:32 | USCV_ITS ---
Jace Christie Age: 72 Gender: M : 1950 Exam Date: 08/25/2022 13:52 Ordering Phys: Jamie Lezama DO Technologist: CT Exam Location: [facility] [place]_ Indication: swelling PROCEDURES: Venous duplex imaging was performed in bilateral lower extremities. The following venous structures were evaluated: common femoral vein, profunda vein, proximal portion of the greater saphenous vein, superficial femoral vein, and the popliteal vein. In addition, the posterior tibial and peroneal trunk were evaluated. FINDINGS: Normal 2-D Doppler and augmentation and compressibility throughout the lower extremity venous structures. Additional imaging through the proximal calf veins also reveals no thrombus. Limited evaluation of the greater saphenous vein is patent with no thrombus.. There is subcutaneous lower extremity edema noted. CONCLUSIONS No DVT bilateral lower extremities. Dr. Selina Monterroso DO (Electronically Signed) Final Date: 25 August 2022 14:55 S
--- NOTE | 2022-08-25 13:33 | CTR_ITS ---
PROCEDURE INFORMATION: Exam: CTA Chest With Contrast Exam date and time: 08/25/2022 1:40 PM Age: 72 years old Clinical indication: Shortness of breath; Prior surgery; Surgery date: 6+ months; Surgery type: Left lung lobectomy; Additional info: Hypoxia/chest pain TECHNIQUE: Imaging protocol: Computed tomographic angiography of the chest with contrast. 3D rendering (Not supervised by radiologist): MIP and/or 3D reconstructed images were created by the technologist. Radiation optimization: All CT scans at this facility use at least one of these dose optimization techniques: automated exposure control; mA and/or kV adjustment per patient size (includes targeted exams where dose is matched to clinical indication); or iterative reconstruction. Contrast material: OMNI 350; Contrast volume: 98 ml; Contrast route: INTRAVENOUS (IV); COMPARISON: CR XR chest 1V portable [id number] 08/25/2022 1:27 PM RADIATION DOSE METRICS: Total DLP (mGy-cm): 562.31 FINDINGS: Pulmonary arteries: The contrast density is less than optimal. The examination is negative for filling defects within the pulmonary arteries. There is No pulmonary emboli. Aorta: Unremarkable. No aortic aneurysm. No aortic dissection. Lungs: There is diffuse interstitial densities in the right mid lung field and the right lower lobe. These findings show honeycomb type interstitial markings and ground-glass interstitial densities.. No consolidation. No masses. Parenchymal scar tissue is seen in the right lung apex Pleural spaces: Calcified pleural plaque is seen in the left lateral chest wall No pneumothorax. No pleural effusion. Heart: A negative for right heart strain. No cardiomegaly. No pericardial effusion. Lymph nodes: Unremarkable. No enlarged lymph nodes. Bones/joints: Unremarkable. No acute fracture. Soft tissues: There is a benign appearing hepatic cyst in the left lobe. this finding measures 63 mm x 60 mm x 42 mm measurements of 6 CT/CT angio chest PE protcl [id number] IMPRESSION: 1. Negative for pulmonary embolism 2. Diffuse emphysematous changes in both lungs. 3. Chronic interstitial lung disease right mid and lower lobe . 4. Benign cyst left hepatic lobe. 5. Negative for right heart strain . 6. Calcified pleural plaque left lateral chest wall
[2022-08-25] MEDS: iohexol 350 mg/mL 500 mL Btl (per mL) IV (13:52)
--- NOTE | 2022-08-25 14:21 | ECG_ITS ---
[facility] Test Date: 2022-08-25 Pat Name: Jace Christie Department: Room: Gender: Male Case Managers: : 1950 Requested By: Jana Araiza Order Number: [id number] Otoniel MD: Michelle Torres M.D. Measurements Intervals [place] Rate: 71 P: 75 [place]: 194 QRS: 81 QRSD: 94 T: 95 QT: 415 QTc: 453 Interpretive Statements SINUS RHYTHM WITH OCCASIONAL VENTRICULAR PREMATURE COMPLEXES POSSIBLE RIGHT VENTRICULAR CONDUCTION DELAY [RSR (QR) IN V1/V2] Compared to ECG 08/25/2022 13:15:52 No significant changes Electronically Signed On 08-26-2022 15:25:36 GLASS BULB MACHINE ADJUSTER by Michelle Torres M.D. [id number]
[2022-08-25 14:45] LABS: ABG PCO2 35.9 mmHg (35-45); ABG PH Result 7.43 (7.35-7.45); Alveolar-Arterial Oxygen Gradi 5.8 mmHg (5-10); Arterial Blood Gas Hematocrit 36.8 % (42-52); Base Excess ABG -0.4 mmol/L (-2.0-2.0); Blood Gas Allen Test Pos; Blood Gas Operator Identificat CAK; Blood Gas Sample Site Radial, left; Blood Gas Sample Type Arterial; Carboxyhemoglobin 1.7 %THgb (0.4-20.1); HCO3 ABG 23.7 mmol/L (22-26); HGB O2 Sat 89.8 % (95-100); Ionized Calcium Level - ABG 1.2 mmol/L (1.1-1.4); Oxygen Device NC; Oxygen Saturation ABG 92.3; PO2 ABG 60.1 mmHg (80.0-100.0); Potassium Level - ABG 3.6 mmol/L (3.5-5.0)
[2022-08-25 14:50] LABS: Troponin 5 2HR 24.56 ng/L (0-15)
[2022-08-25 14:51] LABS: Troponin 5 2HR Delta -2.44 ABS# (0-10)
--- NOTE | 2022-08-25 16:21 | PM.HP ---
Providers/Chief Complaint Chief Complaint: sob History of Present Illness Jace Christie is a 72 year old male with history of hypertension, normocytic and COPD presented to hospital worsening shortness of breath. Patient is doing that he has been having shortness of breath for last 2 to 3 weeks, he has been experiencing productive cough with shortness of breath. He has not noticed any chest pain, he has been noticing coughing and PND as well, he has noticed left leg swelling. He is on Xarelto, he is visiting someone in [place] from [place] has been seeing Dr. Melendez for his foot injury Patient does not use oxygen at home smokes 4 cigarettes a day has been smoking for quite a while does not drink alcohol no recreational drugs In the ER he has been diagnosed with COPD exacerbation, CTA chest rule out PE Chronic interstitial lung disease Lower extremity no sign of DVT In the ER he received steroids, levofloxacin and DuoNeb I have asked RT to put him on high flow nasal cannula Patient is stating that he is DNR/DNI Review of Systems Const: Reports: body aches Eyes: Denies: change in vision ENMT: Denies: throat pain Card: Reports: swelling of feet/ankles; Denies: chest pain Resp: Reports: dyspnea and productive cough GI: Denies: abdominal pain : Denies: flank pain Musc: Reports: extremity pain; Denies: neck pain Skin/Breast: Reports: rash Neuro: Denies: headache(s) Psych: Reports: anxiety Endo: Denies: polyuria Merrill/Lymph: Denies: easy bruising All/Imm: Denies: urticaria Medications/Allergies Home Medications Medication Instructions Recorded Confirmed Last Taken Type Cam Boot to the right foot #1 ea 06/14/22 08/25/22 Unknown Rx albuterol sulfate 90 mcg/actuation 2 puff inhalation Q4H PRN 06/14/22 08/25/22 08/11/22 08:00 History aerosol inhaler Shortness Of Breath diltiazem HCl 240 mg capsule,24 240 mg PO QAM 06/21/22 08/25/22 08/25/22 History hr,extended release fluticasone furoate 200 1 inh inhalation QAM 06/21/22 08/25/22 08/25/22 History mcg-vilanterol 25 mcg/dose inhalation powder (Breo Ellipta) hydrochlorothiazide 25 mg tablet 25 mg PO QAM 06/21/22 08/25/22 08/25/22 History lisinopril 20 mg tablet 20 mg PO QAM 06/21/22 08/25/22 08/25/22 History rivaroxaban 20 mg tablet (Xarelto) 20 mg PO BEDTIME 06/21/22 08/25/22 08/24/22 History tamsulosin 0.4 mg capsule 0.8 mg PO BEDTIME 06/21/22 08/25/22 08/24/22 History Crutches #1 ea 06/22/22 08/25/22 Unknown Rx Dressing Supplies #1 ea 08/15/22 08/25/22 Unknown Rx acetaminophen 500 mg tablet 1,000 mg PO Q6H PRN Pain 08/25/22 08/25/22 Unknown History amoxicillin 875 mg-potassium 1 tab PO BID 08/25/22 08/25/22 08/25/22 History clavulanate 125 mg tablet ipratropium 0.5 mg-albuterol 3 mg 3 ml inhalation QID 08/25/22 08/25/22 08/25/22 07:00 History (2.5 mg base)/3 mL nebulization soln prednisone 20 mg tablet 20 mg PO QAM 08/25/22 08/25/22 08/25/22 History Allergies Allergy/AdvReac Type Severity Reaction Status Date / Time No Known Allergies Allergy Verified 08/25/22 12:33 PFSH Acute PFSH: Medical History Dehiscence of amputation stump of right lower extremity Diabetic peripheral neuropathy associated with type 2 diabetes mellitus History of amputation of great toe Non-pressure 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 Surgical History S/P foot surgery, right Status post transmetatarsal amputation of right foot Family History Denies family history of Cancer Social History Smoking and tobacco status: current every day smoker Vitals/I&O/Wt Last Vital Signs Temp 97.7 F 08/25/22 12:01 Pulse 66 08/25/22 14:48 Resp 18 08/25/22 14:48 BP 152/78 08/25/22 14:48 Pulse Ox 93 08/25/22 14:48 O2 Del Method 08/25/22 14:48 O2 Flow Rate 5 08/25/22 14:48 Weight last 48 hrs Weight 108.862 kg Physical Exam Narrative: Patient sitting in ER bed Currently on 8 L nasal cannula Productive cough S1, S2 Abdomen soft Bilateral breath sound with rhonchi and wheezing Nonfocal neuro exam Pleasant cooperative Nonfocal neuro exam Lower extremity edema positive Right foot covered in dressing Left leg swollen 3+ edema Data : 08/25/22 12:23 08/25/22 12:23 A&P Assessment and plan (1) COPD exacerbation: (2) Hypoxemia: Plan Acute COPD exacerbation Acute hypoxemia Related to COPD exacerbation Start on DuoNeb Steroids Given azithromycin for anti-inflammatory effect Full code Diabetic diet DVT prophylaxis will be covered with Xarelto Start him on high flow nasal cannula Request D-dimer Will request echo as well Rule out DVT Continue antihypertensive regimen Patient is stating that he is DNR/DNI Attestations Medical Necessity Statement*: Continue medical management Time Spent in Patient Care: 30 Coding Level of Care Code Acute Child Life Therapist for Len Fwd Diagnoses COPD exacerbation J44.1 Hypoxemia R09.02
[2022-08-25 16:46] LABS: Adenovirus Not Detected (NOT DETECT); Chlamydia Pneumoniae Not Detected (NOT DETECT); Coronavirus 229E,HKU1,NL63,OC4 Not Detected (NOT DETECT); Human Metapneumovirus Not Detected (NOT DETECT); Human Rhinovirus/Enterovirus Not Detected (NOT DETECT); Influenza A Not Detected (NOT DETECT); Influenza A H1 Not Detected (NOT DETECT); Influenza A H1-2009 Not Detected (NOT DETECT); Influenza A H3 Not Detected (NOT DETECT); Influenza B Not Detected (NOT DETECT); Mycoplasma Pneumoniae Not Detected (NOT DETECT); Parainfluenza Virus Type 1 Not Detected (NOT DETECT); Parainfluenza Virus Type 2 Not Detected (NOT DETECT); Parainfluenza Virus Type 3 Not Detected (NOT DETECT); Parainfluenza Virus Type 4 Not Detected (NOT DETECT); Respiratory Syncytial Virus A Not Detected (NOT DETECT); Respiratory Syncytial Virus B Not Detected (NOT DETECT); SARS-COV-2 Detected (NOT DETECT)
[2022-08-25] MEDS: ipratropium-albuterol 3 mL Neb INHALATION ×2 (16:50→20:14)
[2022-08-25] MEDS: levofloxacin-dextrose 5 % 750 MG/150 ML PREMIX 100 MG IV (17:12)
[2022-08-25 17:20] LABS: Procalcitonin 0.07 ng/mL (0-0.5)
--- NOTE | 2022-08-25 18:26 | USCV_ITS ---
Jace Christie Age: 72 Gender: M : 1950 Exam Date: 08/25/2022 18:51 Ordering Phys: Alexys Solorzano MD Technologist: Aditi Davison Exam Location: [facility] – [place] Indication: Ex CHF BP: 150 / 81 HR: 74 Rhythm: Sinus Technical Quality: Adequate MEASUREMENTS (Male / Female) Normal Values 2D ECHO LV Diastolic Diameter PLAX 4.8 cm 4.2 - 5.9 / 3.9 - 5.3 cm LV Systolic Diameter PLAX 2.7 cm LV Chamber Size 4.3 cm IVS Diastolic Thickness 1.2 cm 0.6 - 1.0 / 0.6 - 0.9 cm IVS Systolic Thickness 1.6 cm LVPW Diastolic Thickness 1.3 cm 0.6 - 1.0 / 0.6 - 0.9 cm LVPW Systolic Thickness 1.9 cm RV Chamber Size 3.6 cm LVOT Diameter 2.0 cm LV Ejection Fraction 2D Teich 75.8 % LV Ejection Fraction MOD 2C 51.1 % LV Ejection Fraction 2C AL 54.1 % LA Diameter 4.0 cm LA Width 2.9 cm LA Height 4.8 cm RA Width 3.9 cm RA Height 4.4 cm Aorta at Sinotubular Diameter 2.9 cm IVC Diameter 2.6 cm M-MODE Aortic Annulus Diameter 4.6 cm LA Ao Ratio MM 1.0 MV E Point Septal Separation 0.9 cm DOPPLER AV Peak Velocity 171.8 cm/s LVOT Peak Velocity 89.0 cm/s AV Area Cont Eq vti 1.7 cm squared AV Area Cont Eq pk 1.6 cm squared MV Area PHT 4.3 cm squared Mitral E to A Ratio 1.2 MV E' Velocity 45.0 cm/s Mitral E to MV E' Ratio 7.8 Mitral E to LV E' Lateral Ratio 7.7 Mitral E to LV E' Septal Ratio 8.0 TR Peak Velocity 140.3 cm/s TR Peak Gradient 7.9 mmHg TR Mean Velocity 98.8 cm/s TR Mean Gradient 4.4 mmHg TR Velocity Time Integral 31.9 cm TV Peak E Velocity 54.0 cm/s Right Atrial Pressure 3.0 mmHg Pulmonary Artery Systolic Pressu 10.9 mmHg RV Acceleration Time 0.1 s RV Ejection Time 0.3 s RV AcT/ET 0.4 FINDINGS Left Ventricle Normal left ventricular size and systolic function, EF 60 % ( visual). Mild left ventricular hypertrophy. No regional wall motion abnormalities. Right Ventricle The right ventricle is normal in size and function. Right Atrium Normal right atrial size. Left Atrium Normal left atrial size. Mitral Valve Trace mitral valve regurgitation. Aortic Valve Thickened aortic valve. Tricuspid Valve Trace tricuspid valve regurgitation. Pulmonic Valve Pulmonic valve not well visualized. Pericardium Has solitary cyst measuring 5.6 x 5.7 cm was noted in the liver Aorta Normal aortic annulus size. IVC Normal inferior vena cava. CONCLUSIONS Normal left ventricular size and systolic function, EF 60 % ( visual). Mild left ventricular hypertrophy. No regional wall motion abnormalities. The right ventricle is normal in size and function. Thickened aortic valve. Trace of tricuspid and mitral valve regurgitation. A solitary liver cyst measuring 5.6 x 5.7 cm was noted There is no pericardial effusion. There are no intracardiac masses. No similar previous studies are available for comparison Dr Michelle Torres MD FAC (Electronically Signed) Final Date: 26 August 2022 11:30 S
[2022-08-25 18:48] LABS: Glucose Point of Care 160 mg/dL (70-110)
[2022-08-25 19:02] LABS: D Dimer 0.81 ug/mIFEU (0-0.59)
[2022-08-25 19:04] LABS: Troponin 5 6HR 26.66 ng/L (0-15)
[2022-08-25 19:09] LABS: Troponin 5 6HR Delta -0.34 ng/L (0-12)
[2022-08-25] MEDS: FUROsemide 20 mg Tablet PO (19:36)
[2022-08-25] MEDS: remdesivir 200 MG in sodium chloride 0.9% (100 ml) 60 ML 100 MG IV (19:40)
[2022-08-25] MEDS: rivaroxaban 10 mg Tablet PO (20:46)
[2022-08-25] MEDS: tamsulosin 0.4 mg Capsule 0.8 MG PO (20:46)
[2022-08-25 20:58] LABS: Results from Genmark
[2022-08-25 21:21] LABS: Glucose Point of Care 211 mg/dL (70-110)
[2022-08-26] VITALS (13 sets, daily range): BP systolic 116–145; BP diastolic 61–75; PULSE 64–79; RESP 16–20; TEMP 36.3–36.8; O2SAT 90–94
[2022-08-26 05:34] LABS: Hematocrit 33.2 % (42.0-52.0); Hemoglobin 10.7 g/dL (11.7-16.6); Lymphocytes # 0.3 10^3/uL (0.8-4.8); Lymphocytes % 6.6 %; Mean Corpuscular HGB Conc 32.2 g/dL (30.0-36.0); Mean Corpuscular Hemoglobin 30.1 pg (28.0-34.0); Mean Corpuscular Volume 93.5 fl (80-94); Mean Platelet Volume 9.6 fL (7.4-10.4); Monocytes # 0.2 10^3/uL (0.2-0.9); Monocytes % 3.6 %; Nucleated Red Blood Cells % 0 %; Platelet Count 202 10^3/cmm (130-400); Red Blood Count 3.55 10^6/uL (4.1-5.3); Red Cell Distribution Width 14.6 % (12.1-15.1)
[2022-08-26] MEDS: lisinopril 20 mg Tablet PO (05:58)
[2022-08-26] MEDS: hydroCHLOROthiazide 25 mg Tablet PO (05:58)
[2022-08-26] MEDS: ipratropium-albuterol 3 mL Neb INHALATION ×5 (06:10→19:53)
[2022-08-26 06:11] LABS: Alanine Aminotransferase 23 U/L (0-41); Albumin Level 3.1 g/dL (3.5-5.2); Alkaline Phosphatase 99 U/L (40-130); Anion Gap 13.7 (5-19); Aspartate Amino Transferase 11 U/L (0-40); Blood Urea Nitrogen 34 mg/dL (8-23); Calcium 8.8 mg/dL (8.5-10.5); Carbon Dioxide 23 mmol/L (22-29); Chloride 99 mmol/L (98-107); Globulin 2.1 g/dL (1.3-4.6); Glucose 209 mg/dL (65-115); Osmolality Calculated 288 mOsm/kg (285-295); Potassium 3.7 mmol/L (3.5-5.1); Sodium 132 mmol/L (136-145); Total Bilirubin 0.2 mg/dL (0.15-1.2); Total Protein 5.2 g/dL (6.6-8.7)
[2022-08-26 06:28] LABS: C Reactive Protein 28.4 mg/L (0.0-4.9); Magnesium 1.8 mg/dL (1.7-2.3); Phosphorus 3.2 mg/dL (2.5-4.5)
[2022-08-26 06:31] LABS: Glucose Point of Care 210 mg/dL (70-110)
[2022-08-26 06:41] LABS: Ferritin 349 ng/mL (30-400)
[2022-08-26] MEDS: insulin lispro 100 unit/1 mL SUBCUT ×3 (09:09→17:34)
[2022-08-26] MEDS: dilTIAZem ER (24HR) 240 mg Capsule PO (09:11)
[2022-08-26] MEDS: FUROsemide 10 mg/mL SDV 2mL 20 MG IVP (09:11)
--- NOTE | 2022-08-26 10:43 | P.PN_ITS ---
Subjective Subjective: Patient is stating that he is pretty much the same as yesterday Still complaining of cough Currently on 10 L high flow nasal cannula No active diarrhea No febrile events He has notified his family on his own Patient is stating he would like to go home as his sister is a retired nurse Vitals/I&O/Wt Last Vital Signs Temp 97.7 F 08/26/22 07:29 Pulse 74 08/26/22 07:49 Resp 18 08/26/22 07:45 BP 138/75 08/26/22 07:29 Pulse Ox 92 08/26/22 07:45 O2 Del Method 08/26/22 07:45 O2 Flow Rate 10 08/26/22 07:45 08/25/22 08/26/22 08/26/22 22:59 06:59 14:59 Intake Total 490 / 490 500 / 990 Output Total 200 / 200 1150 / 1350 Balance 290 / 290 -650 / -360 Weight last 48 hrs Weight 109.905 kg Weight 108.862 kg Physical Exam Narrative: Currently on 10 L high flow nasal cannula Bilateral breath sounds with mild rhonchi Abdomen soft Right foot covered in dressing Abdomen soft however distended EOMI, PERRLA Nonfocal neuro exam Pleasant during my evaluation Eating breakfast at the bedside Data : 08/26/22 04:24 08/26/22 04:24 Micro: Microbiology 08/25/22 17:05 Blood Culture - Preliminary Blood SPECIMEN COLLECTED 08/25/22 17:06 Blood Culture - Preliminary Blood SPECIMEN COLLECTED A&P Assessment and plan (1) Hypoxemia: (2) COPD exacerbation: (3) COVID: (4) Hyperglycemia: Plan Acute COPD exacerbation secondary to COVID-19 infection Currently on 10 L high flow nasal cannula Ox requirement is new COVID-19 infection currently on remdesivir CRP is not remarkably high Wean oxygen down Right foot infection, daily dressing change wet-to-dry with Ruben wraps Follows up with Dr. Melendez outpatient A. fib without RVR Continue diltiazem and Xarelto Patient is getting empirical antibiotic coverage with azithromycin for anti- inflammatory effect Continue remdesivir and IV steroids Continue low-dose Lasix Clinically looks fluid overloaded we will check echo and hemoglobin A1c DNR/DNI Attestations Medical Necessity Statement*: Continue medical management Time Spent in Patient Care: 30 Coding Level of Care Code Acute Leadership Recruiter for Chg Fwd Diagnoses Hypoxemia R09.02 COPD exacerbation J44.1 COVID U07.1 Hyperglycemia R73.9
[2022-08-26 11:29] LABS: Estmated Average Glucose 154
[2022-08-26 11:42] LABS: Glucose Point of Care 344 mg/dL (70-110)
[2022-08-26] MEDS: azithromycin 250 mg Tablet 500 MG PO (13:59)
[2022-08-26 16:52] LABS: Glucose Point of Care 194 mg/dL (70-110)
[2022-08-26] MEDS: remdesivir 100 MG in sodium chloride 0.9% (100 ml) 80 ML IV (19:41)
[2022-08-26 20:49] LABS: Glucose Point of Care 293 mg/dL (70-110)
[2022-08-26] MEDS: insulin glargine 100 units/1 mL 10 UNIT SUBCUT (21:10)
[2022-08-26] MEDS: rivaroxaban 10 mg Tablet PO (21:10)
[2022-08-26] MEDS: tamsulosin 0.4 mg Capsule 0.8 MG PO (21:10)
[2022-08-27] VITALS (17 sets, daily range): BP systolic 104–145; BP diastolic 60–73; PULSE 61–97; RESP 16–25; TEMP 36.3–36.9; O2SAT 85–96
[2022-08-27 04:18] LABS: ABG PH Result 7.42 (7.35-7.45); Arterial Blood Gas Hematocrit 33.2 % (42-52); Base Excess ABG -0.3 mmol/L (-2.0-2.0); Blood Gas Allen Test Pos; Blood Gas Sample Type Arterial
[2022-08-27 04:19] LABS: Blood Gas Operator Identificat ED; Blood Gas Sample Site Radial, right; Oxygen Device NC
[2022-08-27] MEDS: lisinopril 20 mg Tablet PO (05:05)
[2022-08-27] MEDS: hydroCHLOROthiazide 25 mg Tablet PO (05:05)
[2022-08-27] MEDS: ipratropium-albuterol 3 mL Neb INHALATION ×5 (05:36→20:23)
[2022-08-27 05:45] LABS: Hematocrit 32.7 % (42.0-52.0); Hemoglobin 10.6 g/dL (11.7-16.6); Lymphocytes # 0.5 10^3/uL (0.8-4.8); Mean Corpuscular HGB Conc 32.4 g/dL (30.0-36.0); Mean Corpuscular Hemoglobin 30.4 pg (28.0-34.0); Mean Corpuscular Volume 93.7 fl (80-94); Mean Platelet Volume 9.6 fL (7.4-10.4); Monocytes # 0.5 10^3/uL (0.2-0.9); Monocytes % 4.4 %; Neutrophils # 10.03 10^3/uL (1.8-7.7); Neutrophils % 90.3 %; Nucleated Red Blood Cells % 0 %; Platelet Count 219 10^3/cmm (130-400); Red Blood Count 3.49 10^6/uL (4.1-5.3); Red Cell Distribution Width 14.6 % (12.1-15.1); White Blood Count 11.1 10^3/uL (4.0-10.0)
[2022-08-27 06:05] LABS: Anion Gap 12.7 (5-19); Blood Urea Nitrogen 49 mg/dL (8-23); C Reactive Protein 16.2 mg/L (0.0-4.9); Calcium 9.3 mg/dL (8.5-10.5); Carbon Dioxide 24 mmol/L (22-29); Chloride 94 mmol/L (98-107); Glucose 244 mg/dL (65-115); Osmolality Calculated 285 mOsm/kg (285-295); Potassium 3.7 mmol/L (3.5-5.1); Sodium 127 mmol/L (136-145)
[2022-08-27 06:47] LABS: Glucose Point of Care 257 mg/dL (70-110)
--- NOTE | 2022-08-27 07:59 | PC.NURSE ---
Report received from Nakul NAJERA. Patient c/o of some shortness of breath and requested a breathing treatment. He reported no distress after breathing treatment and taking morning medications. Patient encouraged to do deep breathing and use IS.
[2022-08-27] MEDS: insulin lispro 100 unit/1 mL SUBCUT ×3 (08:02→18:31)
[2022-08-27] MEDS: azithromycin 250 mg Tablet 500 MG PO (08:03)
[2022-08-27] MEDS: sennosides-docusate Tablet 1 TAB PO (08:03)
[2022-08-27] MEDS: FUROsemide 10 mg/mL SDV 2mL 20 MG IVP (08:03)
[2022-08-27] MEDS: dilTIAZem ER (24HR) 240 mg Capsule PO (08:03)
[2022-08-27 09:52] LABS: Glucose Point of Care 385 mg/dL (70-110)
--- NOTE | 2022-08-27 09:57 | ECG_ITS ---
[facility] Test Date: 2022-08-27 Pat Name: Jace Christie Department: Room: 272 Gender: Male Oim Consultant: : 1950 Requested By: Alexys Solorzano Order Number: [id number] Otoniel MD: Michelle Torres M.D. Measurements Intervals [place] Rate: 119 P: 0 PA: 0 QRS: 16 QRSD: 82 T: 92 QT: 322 QTc: 453 Interpretive Statements ATRIAL FIBRILLATION WITH RAPID VENTRICULAR RESPONSE WITH ABERRANT CONDUCTION OR VENTRICULAR PREMATURE COMPLEXES NONSPECIFIC ST & T-WAVE ABNORMALITY Compared to ECG 08/25/2022 15:27:47 Aberrant conduction of supraventricular beat(s) now present T-wave abnormality now present Sinus rhythm no longer present Electronically Signed On 08-27-2022 22:13:13 FLOOR SURFACER by Michelle Torres M.D. [id number]
[2022-08-27] MEDS: morphine 4 mg/mL SDV 1 mL 2 MG IVP (10:03)
[2022-08-27 11:29] LABS: Glucose Point of Care 321 mg/dL (70-110)
--- NOTE | 2022-08-27 11:42 | PM.PN ---
Subjective Subjective: This morning patient was complaining of some chest discomfort EKG did not show any ischemic or infarctive changes He improved with use of morphine Heart rate is in 90s Hemodynamic stable Currently on 6 L high flow nasal cannula He was much more calm and alert after getting morphine EKG did show A. fib with ST changes related to tachyarrhythmia Vitals/I&O/Wt Last Vital Signs Temp 98.4 F 08/27/22 11:30 Pulse 83 08/27/22 11:35 Resp 18 08/27/22 11:35 BP 120/64 08/27/22 11:30 Pulse Ox 93 08/27/22 11:35 O2 Del Method 08/27/22 11:35 O2 Flow Rate 6 08/27/22 11:35 08/26/22 08/27/22 08/27/22 22:59 06:59 14:59 Intake Total 820 / 1180 800 / 1980 480 / 480 Output Total 200 / 1300 1000 / 2300 600 / 600 Balance 620 / -120 -200 / -320 -120 / -120 Weight last 48 hrs Weight 106.367 kg Weight 109.905 kg Weight 108.862 kg Physical Exam Narrative: Patient is awake and alert Euvolemic Positive for wheezing A. fib without RVR Hemodynamically stable No active chest pain Hemodynamically stable Nonfocal neuro exam Lower extremity no edema Watching television Calm and cooperative No active distress Data : 08/27/22 05:30 08/27/22 05:30 Micro: Microbiology 08/25/22 17:05 Blood Culture - Preliminary Blood NEGATIVE TO DATE 08/25/22 17:06 Blood Culture - Preliminary Blood NEGATIVE TO DATE 08/25/22 17:15 MRSA Culture - Final Nose A&P Assessment and plan (1) Hyperglycemia: (2) COVID: (3) Hypoxemia: (4) COPD exacerbation: Plan COVID-19 related acute COPD exacerbation Currently on 6 L high flow nasal cannula Oxygen requirement has improved from 10 L yesterday I will continue IV steroids however will decrease the dose Continue remdesivir regimen Continue empirical antibiotic coverage, low-dose Lasix A. fib RVR improved after getting morphine Most likely he became anxious after getting DuoNeb treatment in the morning Continue Xarelto Hypertension: Improved after optimization of antihypertensive regimen DNR/DNI Cardiac diet Plan to discharge him on Sunday if oxygen requirement is below 5 L and wheezing has improved Continue Doc senna for constipation Hyperglycemia steroid-induced optimize Lantus to 15 units instead of 10 Wound care: Wet-to-dry, daily dressing change, Ruben wrap, Kerlix, Attestations Medical Necessity Statement*: Continue medical management Time Spent in Patient Care: 30 Coding Level of Care Code Acute Physician Surgeon for Chg Fwd Diagnoses Hyperglycemia R73.9 COVID U07.1 Hypoxemia R09.02 COPD exacerbation J44.1
[2022-08-27] MEDS: metoprolol tartrate 50 mg Tablet PO ×2 (14:30→19:31)
[2022-08-27 16:34] LABS: Glucose Point of Care 357 mg/dL (70-110)
[2022-08-27] MEDS: remdesivir 100 MG in sodium chloride 0.9% (100 ml) 80 ML IV (18:35)
[2022-08-27] MEDS: tamsulosin 0.4 mg Capsule 0.8 MG PO (19:31)
[2022-08-27] MEDS: rivaroxaban 10 mg Tablet 20 MG PO (19:31)
[2022-08-27 21:06] LABS: Glucose Point of Care 207 mg/dL (70-110)
[2022-08-27] MEDS: insulin glargine 100 units/1 mL 15 UNIT SUBCUT (21:47)
[2022-08-28] VITALS (15 sets, daily range): BP systolic 102–128; BP diastolic 62–78; PULSE 68–86; RESP 15–21; TEMP 36.3–36.5; O2SAT 87–94
[2022-08-28 05:34] LABS: Basophils % 0.1 %; Hemoglobin 11.6 g/dL (11.7-16.6); Lymphocytes # 0.5 10^3/uL (0.8-4.8); Lymphocytes % 3.5 %; Mean Corpuscular HGB Conc 32.2 g/dL (30.0-36.0); Mean Corpuscular Hemoglobin 30.2 pg (28.0-34.0); Mean Corpuscular Volume 93.8 fl (80-94); Mean Platelet Volume 9.7 fL (7.4-10.4); Monocytes # 0.5 10^3/uL (0.2-0.9); Monocytes % 3.1 %; Neutrophils # 14.27 10^3/uL (1.8-7.7); Neutrophils % 91.4 %; Nucleated Red Blood Cells % 0 %; Platelet Count 256 10^3/cmm (130-400); Red Blood Count 3.84 10^6/uL (4.1-5.3); Red Cell Distribution Width 14.6 % (12.1-15.1); White Blood Count 15.6 10^3/uL (4.0-10.0)
[2022-08-28] MEDS: hydroCHLOROthiazide 25 mg Tablet PO (05:56)
[2022-08-28] MEDS: lisinopril 20 mg Tablet PO (05:56)
[2022-08-28 05:58] LABS: Anion Gap 12.7 (5-19); Blood Urea Nitrogen 59 mg/dL (8-23); Calcium 9.5 mg/dL (8.5-10.5); Carbon Dioxide 23 mmol/L (22-29); Chloride 96 mmol/L (98-107); Glucose 191 mg/dL (65-115); Magnesium 1.9 mg/dL (1.7-2.3); Osmolality Calculated 288 mOsm/kg (285-295); Potassium 3.7 mmol/L (3.5-5.1); Sodium 128 mmol/L (136-145)
[2022-08-28 06:26] LABS: Glucose Point of Care 187 mg/dL (70-110)
[2022-08-28] MEDS: ipratropium-albuterol 3 mL Neb INHALATION ×4 (08:13→21:34)
[2022-08-28] MEDS: insulin lispro 100 unit/1 mL SUBCUT ×3 (08:32→17:41)
[2022-08-28] MEDS: azithromycin 250 mg Tablet 500 MG PO (08:33)
[2022-08-28] MEDS: dilTIAZem ER (24HR) 240 mg Capsule PO (08:33)
[2022-08-28] MEDS: sennosides-docusate Tablet 1 TAB PO (08:34)
[2022-08-28] MEDS: FUROsemide 10 mg/mL SDV 2mL 20 MG IVP (08:34)
[2022-08-28] MEDS: metoprolol tartrate 50 mg Tablet PO ×2 (08:36→20:46)
--- NOTE | 2022-08-28 09:28 | P.PN_ITS ---
Subjective Subjective: Patient is requiring 4 to 6 L of oxygen on exertion 4 L at rest No active complaints No bowel movement so far Will give him stool softeners Vitals/I&O/Wt Last Vital Signs Temp 97.4 F L 08/28/22 08:00 Pulse 85 08/28/22 08:20 Resp 18 08/28/22 08:20 BP 112/63 08/28/22 08:00 Pulse Ox 92 08/28/22 08:20 O2 Del Method 08/28/22 08:20 O2 Flow Rate 6 08/28/22 08:20 08/27/22 08/28/22 08/28/22 22:59 06:59 14:59 Intake Total 100 / 1060 600 / 1660 Output Total 275 / 1325 700 / 2025 300 / 300 Balance -175 / -265 -100 / -365 -300 / -300 Weight last 48 hrs Weight 106.367 kg Physical Exam Narrative: Patient is awake and alert Right foot in dressing Awake and alert Nonfocal neuro exam Pleasant and cooperative Currently on 4 L at rest Abdomen soft Nonfocal neuro exam Pleasant and cooperative Data : 08/28/22 05:00 08/28/22 05:00 A&P Assessment and plan (1) Hyperglycemia: (2) COVID: (3) Hypoxemia: (4) COPD exacerbation: Plan COVID-19 pneumonia: Improving gradually improving gradually We will give him 1 more day Cut back on steroids No fever Patient is constipated The plan is to discharge him home if he is saturating well on exertion with less than 5 L of oxygen requirement I will cut back on his antihypertensive regimen Discontinue hydrochlorothiazide, his pressures have been soft Cut back on lisinopril A. fib without RVR Continue Xarelto Finished remdesivir patient is DNR/DNI Attestations Medical Necessity Statement*: dc in 40 hrs Time Spent in Patient Care: 30 Coding Level of Care Code Acute Performance Instructor for Chg Fwd Diagnoses Hyperglycemia R73.9 COVID U07.1 Hypoxemia R09.02 COPD exacerbation J44.1
--- NOTE | 2022-08-28 10:04 | PC.SOCIAL ---
Imm note Imm updated with patient at bedside. Copy of page 2 provided. Patient verbalized understanding. Copy in chart initialed, dated and timed.
[2022-08-28 11:47] LABS: Glucose Point of Care 324 mg/dL (70-110)
[2022-08-28] MEDS: remdesivir 100 MG in sodium chloride 0.9% (100 ml) 80 ML IV (17:41)
[2022-08-28 17:43] LABS: Glucose Point of Care 195 mg/dL (70-110)
--- NOTE | 2022-08-28 19:47 | PM.PN ---
Subjective Subjective: Patient seen bedside for right foot postoperative state. He is status post incision and debridement down to bone cortex with insertion of antibiotic impregnated cement spacer to the right first metatarsal date of operation 08/11/2022. Patient denies any subjective nausea, vomiting, fever, chills, shortness of breath or chest pain. Vitals/I&O/Wt Last Vital Signs Temp 97.5 F L 08/28/22 19:33 Pulse 68 08/28/22 19:33 Resp 16 08/28/22 19:33 BP 111/62 08/28/22 19:33 Pulse Ox 92 08/28/22 19:33 O2 Del Method 08/28/22 19:33 O2 Flow Rate 4 08/28/22 15:53 08/28/22 08/28/22 08/28/22 06:59 14:59 22:59 Intake Total 600 / 1660 360 / 360 340 / 700 Output Total / 2024 1000 / 1000 Balance -100 / -365 -640 / -640 340 / -300 Weight last 48 hrs Weight 234 lb 8 oz Physical Exam Narrative: GENERAL: Patient is alert and oriented ?3 and in no acute distress. The following is a focused right lower extremity exam. VASCULAR: Dorsalis pedis palpable, posterior tibial arteries palpable. Calf is supple and nontender proximally and distally. NEUROLOGICAL: Protective sensation diminished to light touch bilaterally. DERMATOLOGICAL: Incision to the right foot remains coapted with sutures intact, no dehiscence, no periincisional erythema, warmth or drainage. MUSCULOSKELETAL: Status post right transmetatarsal amputation. No pain with posterior calf squeeze. Data 08/28/22 05:00 08/28/22 05:00 Micro: Microbiology 08/27/22 14:30 Gram Stain - Final Sputum - Expectorated Sputum Sputum Culture - Preliminary A&P Assessment and plan (1) Non-pressure 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: (2) Diabetic peripheral neuropathy associated with type 2 diabetes mellitus: (3) Status post transmetatarsal amputation of right foot: Plan Patient examined evaluated, findings and treatment options discussed with patient at length. 72-year-old diabetic male with osteomyelitis of the right first metatarsal. Status post incision and debridement down to bone and insertion of antibiotic impregnated cement spacer date of operation 08/11/2022. Incision is well-healing, no acute signs of infection. New dressing applied, Betadine paint directly to the incision followed by sterile 4 x 4, Kerlix and Ruben wrap. Will continue with boot to the right lower extremity at all times and ambulating overall to decrease his activity. Will follow-up this Sunday in podiatry clinic for repeat dressing change 09/01/2022 9:30 AM. Attestations Medical Necessity Statement*: Postoperative state, status post right foot surgery Coding Level of Care Code Acute Supervisor Inventory Merchandising for Len Fwd Diagnoses Non-pressure 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 L97.514 Diabetic peripheral neuropathy associated with type 2 diabetes mellitus E11.42 Status post transmetatarsal amputation of right foot Z89.431
[2022-08-28] MEDS: rivaroxaban 10 mg Tablet 20 MG PO (20:46)
[2022-08-28] MEDS: tamsulosin 0.4 mg Capsule 0.8 MG PO (20:46)
[2022-08-28] MEDS: insulin glargine 100 units/1 mL 15 UNIT SUBCUT (21:22)
[2022-08-28 21:28] LABS: Glucose Point of Care 252 mg/dL (70-110)
[2022-08-28] MEDS: budesonide 0.5 mg/2 mL Neb INHALATION (21:33)
[2022-08-29] VITALS (10 sets, daily range): BP systolic 97–114; BP diastolic 58–70; PULSE 50–88; RESP 16–20; TEMP 36.4–36.6; O2SAT 90–95
[2022-08-29] MEDS: ipratropium-albuterol 3 mL Neb INHALATION ×3 (04:00→11:21)
[2022-08-29] MEDS: morphine IR 15 mg Tablet PO (04:16)
[2022-08-29 05:23] LABS: Blood Urea Nitrogen 63 mg/dL (8-23); Calcium 9.5 mg/dL (8.5-10.5); Carbon Dioxide 24 mmol/L (22-29); Chloride 95 mmol/L (98-107); Glucose 134 mg/dL (65-115); Osmolality Calculated 286 mOsm/kg (285-295); Sodium 128 mmol/L (136-145)
[2022-08-29 05:33] LABS: Anion Gap 12.8 (5-19)
[2022-08-29 05:34] LABS: Potassium 3.8 mmol/L (3.5-5.1)
[2022-08-29] MEDS: lisinopril 10 mg Tablet PO (06:06)
[2022-08-29 06:49] LABS: Glucose Point of Care 122 mg/dL (70-110)
[2022-08-29] MEDS: budesonide 0.5 mg/2 mL Neb INHALATION (07:18)
[2022-08-29] MEDS: sennosides-docusate Tablet 1 TAB PO (09:18)
[2022-08-29] MEDS: azithromycin 250 mg Tablet 500 MG PO (09:18)
[2022-08-29] MEDS: dilTIAZem ER (24HR) 240 mg Capsule PO (09:18)
[2022-08-29] MEDS: FUROsemide 10 mg/mL SDV 2mL 20 MG IVP (09:19)
[2022-08-29] MEDS: metoprolol tartrate 50 mg Tablet PO (09:25)
--- NOTE | 2022-08-29 10:28 | P.DS_ITS ---
Discharge Providers Date of Admission: 08/25/22 18:07 Date of Discharge: August 29, 2022 Attending Provider at Admission: Stevie Davila MD Attending Provider at Discharge: Alexys Solorzano MD Diagnoses at Discharge Discharge Diagnosis (1) Non-pressure 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: Status: Acute (2) Diabetic peripheral neuropathy associated with type 2 diabetes mellitus: Status: Acute (3) Status post transmetatarsal amputation of right foot: Status: Acute Reason for Visit Reason for Visit: sob Hospital Course Hospital Course 72-year-old male who lives in [facility] suffered from a foot injury has been seeing Dr. Melendez, nonpressure chronic ulcer of right foot with necrosis of bone diabetic peripheral neuropathy status post transmetatarsal amputation of right foot 08/11/2022 patient has been getting Betadine paint at the incision followed by sterile 4 x 4 Kerlix and Ruben wraps. Present to the hospital for worsening of shortness of breath he was diagnosed with COVID-19 pneumonia. He was given steroids and remdesivir. Clinically patient symptoms improved. He never experienced any febrile events or diarrhea. He qualified for 6 L of oxygen on exertion and 4 L at rest. Patient stating that his sister is a retired nurse and he wants to go home he is feeling much better. No signs of DVT or PE. 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 Patient does not need to quarantine anymore he has experienced 10 days of symptoms and now getting better. Physical Exam Narrative: Patient is awake and alert Sitting comfortably in bed Nonfocal neuro exam Pleasant and cooperative Currently on 5 L at rest Abdomen soft Nonfocal neuro exam Pleasant and cooperative ? Discharge Data Studies Completed and Pending Completed Studies During Hospitalization Category Date Time Status CT angio chest PE protcl [id number] Stat Cat Scan 08/25/22 13:33 Completed XR chest 1V portable [id number] Stat Exams 08/25/22 12:20 Completed CV. echo complete* [id number] Routine Ultrasound 08/25/22 18:26 Completed US venous duplex lower extremity bilat [CV venous Ultrasound 08/25/22 13:32 [place] [id number]] Stat Pending at discharge Category Date Time Status Blood Culture Stat Lab 08/25/22 17:05 Results Sputum Culture and Gram Stain Stat Lab 08/27/22 14:30 Results Radiology Impressions Chest X-Ray 08/25/22 12:20 IMPRESSION: 1. Interstitial congestion right lower lobe 2. Postoperative 7th rib resection left hemithorax 3. No acute findings. Chest CTA 08/25/22 13:33 IMPRESSION: 1. Negative for pulmonary embolism 2. Diffuse emphysematous changes in both lungs. 3. Chronic interstitial lung disease right mid and lower lobe . 4. Benign cyst left hepatic lobe. 5. Negative for right heart strain . 6. Calcified pleural plaque left lateral chest wall Laboratory Results WBC 15.6 10^3/uL (4.0-10.0) H 08/28/22 05:00 RBC 3.84 10^6/uL (4.1-5.3) L 08/28/22 05:00 Hgb 11.6 g/dL (11.7-16.6) L 08/28/22 05:00 Hct 36.0 % (42.0-52.0) L 08/28/22 05:00 MCV 93.8 fl (80-94) 08/28/22 05:00 MCH 30.2 pg (28.0-34.0) 08/28/22 05:00 MCHC 32.2 g/dL (30.0-36.0) 08/28/22 05:00 RDW 14.6 % (12.1-15.1) 08/28/22 05:00 Plt Count 256 10^3/cmm (130-400) 08/28/22 05:00 MPV 9.7 fL (7.4-10.4) 08/28/22 05:00 Neut % (Auto) 91.4 % 08/28/22 05:00 Lymph % (Auto) 3.5 % 08/28/22 05:00 [place] % (Auto) 3.1 % 08/28/22 05:00 Eos % (Auto) 0.0 % 08/28/22 05:00 Baso % (Auto) 0.1 % 08/28/22 05:00 Neut # (Auto) 14.27 10^3/uL (1.8-7.7) H 08/28/22 05:00 Lymph # (Auto) 0.5 10^3/uL (0.8-4.8) L 08/28/22 05:00 [place] # (Auto) 0.5 10^3/uL (0.2-0.9) 08/28/22 05:00 Eos # (Auto) 0.0 10^3/uL (0.0-0.8) 08/28/22 05:00 Baso # (Auto) 0.0 10^3/uL (0.0-0.1) 08/28/22 05:00 Nucleated RBC % (auto) 0 % 08/28/22 05:00 Nucleated RBCs # 0.0 /100WBC 08/28/22 05:00 PT 15.10 SECONDS (12.1-14.9) H 08/25/22 12:23 INR 1.15 (0.8-1.2) 08/25/22 12:23 APTT 28.2 SECONDS (23.9-36.7) 08/25/22 12:23 D-Dimer 0.81 ug/mIFEU (0-0.59) H 08/25/22 18:32 Specimen Type Arterial 08/27/22 04:08 Sample Site Radial, right 08/27/22 04:08 ABG pH 7.42 (7.35-7.45) 08/27/22 04:08 ABG pCO2 37.0 mmHg (35-45) 08/27/22 04:08 ABG pO2 73.0 mmHg (80.0-100.0) L 08/27/22 04:08 ABG HCO3 24.0 mmol/L (22-26) 08/27/22 04:08 ABG O2 Saturation 92.3 08/25/22 14:34 ABG Base Excess -0.3 mmol/L (-2.0-2.0) 08/27/22 04:08 Cesar Test Pos 08/27/22 04:08 A-a O2 Gradient 5.8 mmHg (5-10) 08/25/22 14:34 Hematocrit 33.2 % (42-52) L 08/27/22 04:08 Hgb O2 Saturation 89.8 % (95-100) L 08/25/22 14:34 Carboxyhemoglobin 1.7 %THgb (0.4-20.1) 08/25/22 14:34 Methemoglobin 1.0 % (0.4-1.5) 08/25/22 14:34 Total Hemoglobin 12.0 g/dL (14-18) L 08/25/22 14:34 Sodium 135.0 mmol/L (131-143) 08/25/22 14:34 Potassium 3.6 mmol/L (3.5-5.0) 08/25/22 14:34 Glucose 152.0 mg/dL (70-115) H 08/25/22 14:34 Ionized Calcium 1.2 mmol/L (1.1-1.4) 08/25/22 14:34 O2 Delivery Device Nc 08/27/22 04:08 O2 Liters/Min 8.0 % 08/27/22 04:08 Promotion Manager ID Ed 08/27/22 04:08 Sodium 128 mmol/L (136-145) L 08/29/22 04:38 Potassium 3.8 mmol/L (3.5-5.1) 08/29/22 04:38 Chloride 95 mmol/L (98-107) L 08/29/22 04:38 Carbon Dioxide 24 mmol/L (22-29) 08/29/22 04:38 Anion Gap 12.8 (5-19) 08/29/22 04:38 BUN 63 mg/dL (8-23) H 08/29/22 04:38 Creatinine 1.2 mg/dL (0.7-1.2) 08/29/22 04:38 GFR Calculation Not Reportable 08/29/22 04:38 Glucose 134 mg/dL (65-115) H 08/29/22 04:38 POC Glucose 122 mg/dL (70-110) H 08/29/22 06:41 Estimat Average Glucose 154 08/26/22 04:24 Hemoglobin A1c 7.0 % (4.0-6.0) H 08/26/22 04:24 Calculated Osmolality 286 mOsm/kg (285-295) 08/29/22 04:38 Calcium 9.5 mg/dL (8.5-10.5) 08/29/22 04:38 Phosphorus 3.2 mg/dL (2.5-4.5) 08/26/22 05:19 Magnesium 1.9 mg/dL (1.7-2.3) 08/28/22 05:00 Ferritin 349 ng/mL (30-400) 08/26/22 05:19 Total Bilirubin 0.2 mg/dL (0.15-1.2) 08/26/22 04:24 AST 11 U/L (0-40) 08/26/22 04:24 ALT 23 U/L (0-41) 08/26/22 04:24 Alkaline Phosphatase 99 U/L (40-130) 08/26/22 04:24 Troponin T Baseline 27 ng/L (0-15) H 08/25/22 12:23 Troponin T 120 Minute 24.56 ng/L (0-15) H 08/25/22 14:19 Delta Troponin T -2.44 ABS# (0-10) L 08/25/22 14:19 Troponin T Hi Sens 6Hr 26.66 ng/L (0-15) H 08/25/22 18:32 Troponin T Hi Sens 6Hr Delta -0.34 ng/L (0-12) L 08/25/22 18:32 C-Reactive Protein 16.2 mg/L (0.0-4.9) H 08/27/22 05:30 NT-Pro-B Natriuret Pep 159 pg/mL (0-125) H 08/25/22 12:23 Total Protein 5.2 g/dL (6.6-8.7) L 08/26/22 04:24 Albumin 3.1 g/dL (3.5-5.2) L 08/26/22 04:24 Globulin 2.1 g/dL (1.3-4.6) 08/26/22 04:24 Procalcitonin 0.07 ng/mL (0-0.5) 08/25/22 14:19 Nasal Influ A H1 2008 PCR Not detected (NOT DETECT) 08/25/22 14:55 Coronavirus 229E (PCR) Not detected (NOT DETECT) 08/25/22 14:55 Influenza A (H1) PCR Not detected (NOT DETECT) 08/25/22 14:55 Influenza A (H3) PCR Not detected (NOT DETECT) 08/25/22 14:55 Influenza Type A (PCR) Not detected (NOT DETECT) 08/25/22 14:55 Influenza Type B (PCR) Not detected (NOT DETECT) 08/25/22 14:55 SARS-CoV-2 (PCR) Detected (NOT DETECT) A 08/25/22 14:55 Vitals Last Vital Signs Temp 97.5 F L 11/15/22 07:29 Pulse 68 08/29/22 07:29 Resp 17 08/29/22 07:29 BP 110/70 08/29/22 07:29 Pulse Ox 91 08/29/22 07:29 O2 Del Method 08/29/22 07:20 O2 Flow Rate 5 08/29/22 07:20 Discharge Plan Discharge Patient Disposition: Home Condition: Stable Prescriptions: New Robitussin Cough and Cold CF 2.5-5-50 mg/5 mL liquid 15 ml PO Q4H PRN (Reason: cold symptoms) Qty: 118 0RF albuterol sulfate 90 mcg/actuation HFA aerosol inhaler 2 inh inhalation Q8H PRN (Reason: shortness of breath or wheezing) Qty: 8.5 1RF Continued albuterol sulfate 90 mcg/actuation HFA aerosol inhaler 2 puff inhalation Q4H PRN (Reason: Shortness Of Breath) (DME) Cam Boot to the right foot See Rx Instructions .Route .MEDSUPPLY Qty: 1 0RF Rx Instructions: As directed (DME) Crutches See Rx Instructions .Route .MEDSUPPLY Qty: 1 0RF Rx Instructions: As directed by HOME (DME) Dressing Supplies See Rx Instructions .Route .MEDSUPPLY Qty: 1 0RF Rx Instructions: Normal Saline-1 Box, 4x4 gauze-2 Boxes, Betadine 8 Bottles, Kerlex- 8 Rolls, and 4in Ruben Wrap- 8 Rolls lisinopril 20 mg Tablet 20 mg PO QAM diltiazem HCl 240 mg Capsule,Extended Release 24 Hr 240 mg PO QAM tamsulosin 0.4 mg Capsule 0.8 mg PO BEDTIME Xarelto 20 mg Tablet 20 mg PO BEDTIME Rx Instructions: must administer with evening meal fluticasone furoate-vilanterol [Breo Ellipta] 200-25 mcg/dose Blister With Device 1 inh INHALATION QAM Tylenol Ex Str Rapid Release 500 mg Tablet 1,000 mg PO Q6H PRN (Reason: Pain) ipratropium-albuterol 0.5 mg-3 mg(2.5 mg base)/3 mL solution for nebulization 3 ml INHALATION QID amoxicillin-pot clavulanate 875-125 mg Tablet 1 tab PO BID Qty: 10 0RF Rx Instructions: for 14 days (rx filled 08/11/22) Discontinued hydrochlorothiazide 25 mg Tablet 25 mg PO QAM prednisone 20 mg Tablet 20 mg PO QAM Discharge Orders: Discharge Order (Routine); Ordered 08/29/22 Ordered By: Alexys Solorzano Other Ambulatory Orders: DME: Oxygen (Order) Location: None Selected Ordered By: Stevie Davila Referrals: Zachary Melendez DPM [Physician] - 09/01/22 9:30 am Patient Instructions: Opioid Safety Activity Restrictions/Additional Instructions: Dr. Melendez orders for right foot: * Cam boot when ambulating right foot * Keep right foot elevated level with a hip when resting * Dressing change daily Betadine to the incision with gauze, Kerlix and Ruben wrap. * Avoid getting wet when showering * Follow-up this 09/01/2022 at 9:30 AM in podiatry clinic Discharge Attestations Time Spent in Discharge Care*: less than 30 min Quality Metrics Clinical Quality Measures [ No reported AMI, CVA or VTE this stay] Coding Level of Care Code Acute g [facility] note Diagnoses Non-pressure 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 L97.514 Diabetic peripheral neuropathy associated with type 2 diabetes mellitus E11.42 Status post transmetatarsal amputation of right foot Z89.431
[2022-08-29 11:27] LABS: Glucose Point of Care 159 mg/dL (70-110)
--- NOTE | 2022-08-29 12:00 | ECG_ITS ---
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: : 1950 Requested By: Stevie Davila Order Number: [id number] Otoniel MD: Adolph Baltazar Measurements Intervals [place] Rate: 86 P: 0 [place]: 0 QRS: 28 QRSD: 86 T: 62 QT: 341 QTc: 408 Interpretive Statements ATRIAL FIBRILLATION ABNORMAL RHYTHM ECG Compared to ECG 08/27/2022 09:57:11 Aberrant conduction of supraventricular beat(s) no longer present Ventricular premature complex(es) no longer present T-wave abnormality no longer present Electronically Signed On 08-29-2022 18:00:05 SONOGRAM TECHNICIAN by Adolph Baltazar [email or web address]
--- NOTE | 2022-08-29 12:16 | PC.NURSE ---
Pt vagaled down on commode. Pt moved to bed. No loss of consciousness. Bp soft 94/60. EKG obtained, afib which is pt baseline. Physician notified, family notified. Orders given to hold discharge for two hours and observe pt.
== END 2022-08-29 14:52 | disposition home or self-care (01) | DRG 177 ==
LOC: ER 17:56 → MEDSURG 18:38
PROVIDERS: Nurse Practitioner Family; Admitting Provider Family Medicine; Emergency Provider Family Medicine; Visit Provider Internal Medicine
DX: U07.1 COVID-19 (principal); J12.82 Pneumonia due to coronavirus disease 2019; J44.1 Chronic obstructive pulmonary disease with (acute) exacerbation; I10 Essential (primary) hypertension; F17.210 Nicotine dependence, cigarettes, uncomplicated; Z66 Do not resuscitate; E11.65 Type 2 diabetes mellitus with hyperglycemia; E11.40 Type 2 diabetes mellitus with diabetic neuropathy, unspecified; E11.621 Type 2 diabetes mellitus with foot ulcer; L97.514 Non-pressure 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; I48.91 Unspecified atrial fibrillation; K59.00 Constipation, unspecified; Z89.421 Acquired absence of other right toe(s); Z89.411 Acquired absence of right great toe; Z79.51 Long term (current) use of inhaled steroids; Z79.01 Long term (current) use of anticoagulants
CPT/HCPCS: 36415; 36416; 36600; 71045; 71275; 80048; 80051; 80053; 82330; 82728; 82803; 82805; 82962; 83036; 83735; 83880; 84100; 84145; 84484; 85025; 85378; 85610; 85730; 86140; 87040; 87070; 87205; 87631; 87635; 87641; 93005; 93306; 93970; 94640; 94760; 96365; 96372; 96375; 99285; J0248; J1815; J1940; J1956; J2270; J2920; J2930; J3535; J7626; Q0144; Q9967

== ENCOUNTER → 2022-09-04 12:38 | Outpatient (BNVA) | payer OTHER, SELFPAY | PROVIDERS: Visit Provider Podiatrist Foot & Ankle Surgery | DX: Z98.890 Other specified postprocedural states (principal); E11.621 Type 2 diabetes mellitus with foot ulcer; L97.516 Non-pressure chronic ulcer of other part of right foot with bone involvement without evidence of necrosis | CPT/HCPCS: 99024 ==

== ENCOUNTER → 2022-09-11 09:14 | Outpatient (BNVA) | payer OTHER, SELFPAY | PROVIDERS: Visit Provider Podiatrist Foot & Ankle Surgery | DX: E11.621 Type 2 diabetes mellitus with foot ulcer (principal); Z98.890 Other specified postprocedural states; L97.519 Non-pressure chronic ulcer of other part of right foot with unspecified severity | CPT/HCPCS: 73630; 99214 ==

== ENCOUNTER → 2022-09-26 12:40 | Outpatient (BNVA) | payer OTHER, SELFPAY | PROVIDERS: Visit Provider Podiatrist Foot & Ankle Surgery | DX: E11.621 Type 2 diabetes mellitus with foot ulcer (principal); L97.512 Non-pressure chronic ulcer of other part of right foot with fat layer exposed | CPT/HCPCS: 99213 ==

== ENCOUNTER → 2022-10-03 13:37 | Outpatient (BNVA) | payer OTHER, SELFPAY | PROVIDERS: Visit Provider Podiatrist Foot & Ankle Surgery | DX: E11.621 Type 2 diabetes mellitus with foot ulcer (principal); L97.512 Non-pressure chronic ulcer of other part of right foot with fat layer exposed | CPT/HCPCS: 73630; 99214 ==

== ENCOUNTER 2022-10-18 21:47 | Inpatient (IN) | payer OTHER, SELFPAY ==
--- NOTE | 2022-10-18 21:53 | ECG_ITS ---
[facility] Test Date: 2022-10-18 Pat Name: Jace Christie Department: Room: Gender: Male Systems Tester: : 1950 Requested By: Nuris Durán Order Number: [id number] Otoniel MD: Shilo Bagley M.D. Measurements Intervals [place] Rate: 122 P: 0 [place]: 0 QRS: 12 QRSD: 78 T: 69 QT: 307 QTc: 438 Interpretive Statements ATRIAL FIBRILLATION WITH RAPID VENTRICULAR RESPONSE NONSPECIFIC T-WAVE ABNORMALITY Compared to ECG 08/29/2022 12:03:14 T-wave abnormality now present Electronically Signed On 10-19-2022 8:53:20 NECK BAND SETTER by Shilo Bagley M.D. [id number]
--- NOTE | 2022-10-18 21:53 | XRR_ITS ---
PROCEDURE INFORMATION: Exam: XR Chest Exam date and time: 10/18/2022 9:56 PM Age: 72 years old Clinical indication: Other: Weakness; Patient HX: Blood loss TECHNIQUE: Imaging protocol: Radiologic exam of the chest. Views: 1 view. COMPARISON: CR XR chest 1V portable [id number] 08/25/2022 1:27 PM FINDINGS: Lungs: Patchy bilateral mid to lower lung field atelectasis versus infiltrate, greatest in the right lower lobe. Pleural spaces: Unremarkable. No pleural effusion. No pneumothorax. Heart/Mediastinum: Cardiomegaly. Bones/joints: Unremarkable. XR/XR chest 1V portable [id number] IMPRESSION: 1. Patchy bilateral mid to lower lung field atelectasis versus infiltrate, greatest in the right lower lobe. 2. Cardiomegaly.
[2022-10-18 21:54] VITALS: BP 87/48; PULSE 147; RESP 25; O2SAT 99
--- NOTE | 2022-10-18 21:58 | ED_ITS ---
HPI - Abdominal Pain General: Chief Complaint: Abdominal Pain Stated Complaint: generalized weakness Time Seen by Provider: 10/18/22 21:52 Source: patient and EMS Mode of arrival: EMS Limitations: no limitations History of Present Illness: 72-year-old male he states he has been having black tarry stools since 9 AM. He does have a history of A. fib he is on Xarelto he states he has had increasing weakness throughout the day he is hypotensive with EMS. He denies any pain or fever denies any worsening improving factors he does take ibuprofen daily no history of GI bleeds in the past. Associated Symptoms: Reports diarrhea and melena; Denies chills, dysuria and fever(s) Review of Systems Const: Denies: fever(s), chills, body aches or change in appetite Eyes: Denies: blurry vision or eye discomfort ENMT: Denies: throat pain or dental pain Card: Denies: chest pain Resp: Denies: dyspnea GI: Reports: diarrhea and melena : Denies: dysuria Musc: Denies: neck pain or back pain Skin/Breast: Denies: rash Neuro: Denies: headache(s) Psych: Denies: depression [place]/Lymph: Denies: easy bruising All/Imm: Denies: urticaria PFSH ED PFSH: Medical History (Updated 10/19/22 @ 01:01 by Anjali Alicea MD) COPD exacerbation COVID Dehiscence of amputation stump of right lower extremity Diabetic peripheral neuropathy associated with type 2 diabetes mellitus History of amputation of great toe Hyperglycemia Hypoxemia Non-pressure 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 Surgical History S/P foot surgery, right 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 Family History Denies family history of Cancer Social History Smoking and tobacco status: current every day smoker Physical Exam Const: COMMON NORMALS: patient oriented x3 GENERAL APPEARANCE: in distress and ill appearing HENMT: COMMON NORMALS: normocephalic and atraumatic HEAD & SCALP: normocephalic and atraumatic Eye: COMMON NORMALS: Equal, round and reactive pupils present and EOMs intact bilaterally PUPIL: Yes Equal, round and reactive pupils present Neck/C-Spine: COMMON NORMALS: full ROM and supple Chest: COMMONS NORMALS: normal inspection of the chest and normal palpation of entire chest wall Resp: COMMON NORMALS: normal respiratory effort, No retractions, No use of accessory muscles and clear to auscultation bilaterally AUSCULTATION: clear to auscultation bilaterally Cardio: COMMON NORMALS: No murmurs present (Cardio) RATE: tachycardic RHYTHM: abnormal rhythm irregularly irregular GI: COMMON NORMALS: Normal to inspection, nondistended, normoactive bowel sounds present, Soft to palpation, non-tender and no masses PALPATION: Yes Soft to palpation OTHER: black stool on rectal exam that is heme positivie Extremity: COMMON NORMALS: normal to inspection and full ROM Neuro: COMMON NORMALS: patient oriented x3, moves all extremities and no focal motor deficits Psych: COMMON NORMALS: mental status grossly normal, Normal thought process present and cooperative THOUGHT PROCESS: Normal thought process present Skin: COMMON NORMALS: no rashes or lesions noted and no wounds GENERAL SKIN EXAM: no rashes or lesions noted Procedures Central Line Placement Right IJ: Time Out Performed: Yes Patient Placed on Monitor/Pulse Ox: Yes MD Prep: mask, gown and gloves Central Line Prep: Chlorhexidine scrub Local Anesthetic: lidocaine 1% Amount of anesthesia used (mL): 5 Ultrasound Used for Placement: Yes Central Line Lumen Inserted: triple Post Procedure: sutured in place, good blood return, all ports aspirated, flushed, capped and sterile dressing applied Post Procedure X-Ray: tip of catheter in good position Patient Tolerated Procedure: well Complications: none Course Vital Signs: Vital signs: Vital Signs Temperature 97.9 F 10/19/22 01:01 Pulse Rate 148 H 10/19/22 01:01 Respiratory Rate 22 H 10/19/22 01:01 Blood Pressure 92/36 10/19/22 01:01 Pulse Oximetry 95 10/19/22 01:01 Oxygen Delivery Me thod 10/19/22 00:42 Oxygen Flow Rate 3 10/19/22 00:42 MDM - Abdominal Pain Medical Decision Making Patient presents with acute upper GI bleed he is on Eliquis as well he did improve after his initial unit of blood but he started bleeding again he became hypotensive decision was made to reverse Eliquis at As he is getting more blood products his blood pressure is currently 101/78 surgeon was called he is here at bedside is going to take patient to the OR. Lab Data 10/18/22 22:05 10/18/22 22:05 Labs/Radiology: Laboratory Results WBC 20.2 10^3/uL (4.0-10.0) H 10/18/22 22:05 RBC 2.27 10^6/uL (4.1-5.3) L 10/18/22 22:05 Hgb 6.9 g/dL (11.7-16.6) L 10/18/22 22:05 Hct 22.4 % (42.0-52.0) L 10/18/22 22:05 MCV 98.7 fl (80-94) H 10/18/22 22:05 MCH 30.4 pg (28.0-34.0) 10/18/22 22:05 MCHC 30.8 g/dL (30.0-36.0) 10/18/22 22:05 RDW 16.0 % (12.1-15.1) H 10/18/22 22:05 Plt Count 266 10^3/cmm (130-400) 10/18/22 22:05 MPV 10.0 fL (7.4-10.4) 10/18/22 22:05 Neut % (Auto) 72.7 % 10/18/22 22:05 Lymph % (Auto) 13.3 % 10/18/22 22:05 [place] % (Auto) 6.3 % 10/18/22 22:05 Eos % (Auto) 0.4 % 10/18/22 22:05 Baso % (Auto) 0.1 % 10/18/22 22:05 Neut # (Auto) 14.66 10^3/uL (1.8-7.7) H 10/18/22 22:05 Lymph # (Auto) 2.7 10^3/uL (0.8-4.8) 10/18/22 22:05 [place] # (Auto) 1.3 10^3/uL (0.2-0.9) H 10/18/22 22:05 Eos # (Auto) 0.1 10^3/uL (0.0-0.8) 10/18/22 22:05 Baso # (Auto) 0.0 10^3/uL (0.0-0.1) 10/18/22 22:05 Nucleated RBC % (auto) 0.2 % 10/18/22 22:05 Nucleated RBCs # 0.0 /100WBC 10/18/22 22:05 PT 26.30 SECONDS (12.1-14.9) H 10/18/22 22:05 INR 2.38 (0.8-1.2) H 10/18/22 22:05 APTT 29.4 SECONDS (23.9-36.7) 10/18/22 22:05 Sodium 135 mmol/L (136-145) L 10/18/22 22:05 Potassium 4.3 mmol/L (3.5-5.1) 10/18/22 22:05 Chloride 99 mmol/L (98-107) 10/18/22 22:05 Carbon Dioxide 22 mmol/L (22-29) 10/18/22 22:05 Anion Gap 18.3 (5-19) 10/18/22 22:05 BUN 99 mg/dL (8-23) H* D 10/18/22 22:05 Creatinine 1.4 mg/dL (0.7-1.2) H 10/18/22 22:05 GFR Calculation Not Reportable 10/18/22 22:05 Glucose 238 mg/dL (65-115) H 10/18/22 22:05 Calculated Osmolality 319 mOsm/kg (285-295) H 10/18/22 22:05 Lactate 4.5 mmol/L (0.5-2.2) H* 10/18/22 22:46 Calcium 8.1 mg/dL (8.5-10.5) L 10/18/22 22:05 Magnesium 3.4 mg/dL (1.7-2.3) H 10/18/22 22:05 Total Bilirubin 0.2 mg/dL (0.15-1.2) 10/18/22 22:05 AST 7 U/L (0-40) 10/18/22 22:05 ALT 14 U/L (0-41) 10/18/22 22:05 Alkaline Phosphatase 49 U/L (40-130) 10/18/22 22:05 Total Protein 4.4 g/dL (6.6-8.7) L 10/18/22 22:05 Albumin 3.0 g/dL (3.5-5.2) L 10/18/22 22:05 Globulin 1.4 g/dL (1.3-4.6) 10/18/22 22:05 Hepatitis A IgM Ab Non-reactive (Nonreactive) 10/18/22 22:05 Hep Bs Antigen Non-reactive (Nonreactive) 10/18/22 22:05 Hep Bs Antibody 3.5 (11.5-1000) L 10/18/22 22:05 Hep B Core Total Ab Non-reactive (Nonreactive) 10/18/22 22:05 Hepatitis C Antibody Non-reactive (Nonreactive) 10/18/22 22:05 Blood Type O Positive 10/18/22 22:05 Rho(D) Type Positive 10/18/22 22:05 Antibody Screen Negative 10/18/22 22:05 Crossmatch See Detail 10/18/22 22:05 EKG Data EKG 1: I personally reviewed and interpreted this EKG as follows: EKG interpretation date: 10/18/22 EKG interpretation time: 22:12 Interpretation: afib rvr hr [address] or t wave abnormalities qrs 78 qtc 379 Critical Care Time Critical Care Time: Critical Care Time: Yes Total Critical Care Time: 55 Attestation: The high probability of a clinically significant, sudden or life threatening deterioration of the patient's gi system(s) required my full and direct att ention, intervention and personal management. The critical care time is as shown. This time is in addition to time spent performing any reported procedures but includes the following: [x] Data and vital sign review and interpretation [x] Patient assessment, examination and intervention [x] Documentation [x] Medication orders and management Discharge Plan Discharge Patient Disposition: Admitted As Inpatient Admit Provider: Anjali Alicea Clinical Impression: Acute upper GI bleed Condition: Stable Coding Level of Care Code ED [place] [employer] Craft Crewman for Chg Fwd Exam Comprehensive
[2022-10-18] MEDS: sodium chloride 0.9% 1,000 ML 999 ML IV (22:01)
[2022-10-18 22:19] LABS: Hematocrit 22.4 % (42.0-52.0); Hemoglobin 6.9 g/dL (11.7-16.6); Mean Corpuscular HGB Conc 30.8 g/dL (30.0-36.0); Mean Corpuscular Hemoglobin 30.4 pg (28.0-34.0); Mean Corpuscular Volume 98.7 fl (80-94); Platelet Count 266 10^3/cmm (130-400); Red Blood Count 2.27 10^6/uL (4.1-5.3); White Blood Count 20.2 10^3/uL (4.0-10.0)
[2022-10-18 22:27] VITALS: BP 98/65; PULSE 130; RESP 20; O2SAT 98
[2022-10-18 22:37] LABS: Alanine Aminotransferase 14 U/L (0-41); Alkaline Phosphatase 49 U/L (40-130); Anion Gap 18.3 (5-19); Aspartate Amino Transferase 7 U/L (0-40); Calcium 8.1 mg/dL (8.5-10.5); Carbon Dioxide 22 mmol/L (22-29); Chloride 99 mmol/L (98-107); Globulin 1.4 g/dL (1.3-4.6); Glucose 238 mg/dL (65-115); Magnesium 3.4 mg/dL (1.7-2.3); Osmolality Calculated 319 mOsm/kg (285-295); Potassium 4.3 mmol/L (3.5-5.1); Sodium 135 mmol/L (136-145); Total Bilirubin 0.2 mg/dL (0.15-1.2); Total Protein 4.4 g/dL (6.6-8.7)
[2022-10-18] MEDS: pantoprazole 40 mg SDV 80 MG IVP (22:38)
[2022-10-18] MEDS: pantoprazole 40 MG in sodium chloride 0.9% (plus) 100 ML 20 MG IV (22:43)
[2022-10-18 22:54] LABS: Blood Urea Nitrogen 99 mg/dL (8-23)
[2022-10-18 23:52] LABS: Lactate (Lactic Acid level) 4.5 mmol/L (0.5-2.2)
--- NOTE | 2022-10-18 23:55 | P.HP_ITS ---
Providers/Chief Complaint Chief Complaint: generalized weakness History of Present Illness Jace Christie is a 72 year old male with past medical history of COPD, COVID, TMA right foot, type 2 diabetes mellitus with peripheral neuropathy, current everyday smoker, atrial fibrillation chronically on Xarelto presented to the hospital for increasing weakness for the last few days. He came in via EMS and was noted to have a low blood pressure. Patient denies any fever, chills dysuria, shortness of breath. He does report diarrhea and black tarry stools since this morning. He is chronically on Xarelto for his atrial fibrillation. He states his last normal BM was 2 days ago. Since 9 Am this morning he has been having black stools that are worsening with increasing weakness. He also sustained a fall due to being lightheaded and landed on his left side. He has chronic low back pain which he says is worse today. ED course: Blood pressure on arrival 87/48, respiratory 25, tachycardic, pulse 147, saturating 99% on room air. Chest x-ray showed patchy bilateral mid to lower lung field atelectasis versus infiltrate greatest in right lower lobe, cardiomegaly. EKG did show A. fib RVR with heart rate 120s. No acute ischemic changes noted. Initial labs revealed hemoglobin 6.9, WBC 20.2, magnesium 3.4. Lactic acid 4.5. Patient given 1 L bolus normal saline and started on Protonix drip. 2 units packed RBCs ordered. General surgery consulted stat. Medications/Allergies Home Medications Medication Instructions Recorded Confirmed Last Taken Type Cam Boot to the right foot #1 ea 06/14/22 10/03/22 Unknown Rx albuterol sulfate 90 mcg/actuation 2 puff inhalation Q4H PRN 06/14/22 10/03/22 08/11/22 08:00 History aerosol inhaler Shortness Of Breath diltiazem HCl 240 mg capsule,24 240 mg PO QAM 06/21/22 10/03/22 08/25/22 History hr,extended release fluticasone furoate 200 1 inh inhalation QAM 06/21/22 10/03/22 08/25/22 History mcg-vilanterol 25 mcg/dose inhalation powder (Breo Ellipta) lisinopril 20 mg tablet 20 mg PO QAM 06/21/22 10/03/22 08/25/22 History rivaroxaban 20 mg tablet (Xarelto) 20 mg PO BEDTIME 06/21/22 10/03/22 08/24/22 History tamsulosin 0.4 mg capsule 0.8 mg PO BEDTIME 06/21/22 10/03/22 08/24/22 History Crutches #1 ea 06/22/22 10/03/22 Unknown Rx Dressing Supplies #1 ea 08/15/22 10/03/22 Unknown Rx acetaminophen 500 mg tablet 1,000 mg PO Q6H PRN Pain 08/25/22 10/03/22 Unknown History ipratropium 0.5 mg-albuterol 3 mg 3 ml inhalation QID 08/25/22 10/03/22 08/25/22 07:00 History (2.5 mg base)/3 mL nebulization soln albuterol sulfate 90 mcg/actuation 2 inh inhalation Q8H PRN shortness 08/29/22 10/03/22 Unknown Rx aerosol inhaler of breath or wheezing #8.5 grams amoxicillin 875 mg-potassium 1 tab PO BID #10 tabs 08/29/22 10/03/22 08/25/22 Rx clavulanate 125 mg tablet gfriyxckkbhbi-FW-zkkplmlpnjz 2.5 15 ml PO Q4H PRN cold symptoms 08/29/22 10/03/22 Unknown Rx mg-5 mg-50 mg/5 mL oral liquid #118 mL (Robitussin Cough and Cold CF) Optifoam Silicone Bordered Foam #1 ea 09/11/22 10/03/22 Unknown Rx Dressing cadexomer iodine 0.9 % topical gel 40 g topical Q3D #40 grams 09/27/22 10/03/22 Unknown Rx (Iodosorb) Allergies Allergy/AdvReac Type Severity Reaction Status Date / Time No Known Allergies Allergy Verified 10/03/22 13:49 PFSH Acute PFSH: Medical History (Updated 10/19/22 @ 01:01 by Anjali Alicea MD) COPD exacerbation COVID Dehiscence of amputation stump of right lower extremity Diabetic peripheral neuropathy associated with type 2 diabetes mellitus History of amputation of great toe Hyperglycemia Hypoxemia Non-pressure 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 Surgical History S/P foot surgery, right 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 Family History Denies family history of Cancer Social History Smoking and tobacco status: current every day smoker Vitals/I&O/Wt Last Vital Signs Temp 97.9 F 10/19/22 00:46 Pulse 106 H 10/19/22 00:46 Resp 15 10/19/22 00:46 BP 82/55 10/19/22 00:46 Pulse Ox 95 10/19/22 00:46 O2 Del Method 10/19/22 00:42 O2 Flow Rate 3 10/19/22 00:42 10/18/22 10/18/22 10/19/22 14:59 22:59 06:59 Intake Total 1000 / 1000 Balance 1000 / 1000 Weight last 48 hrs Weight 106.594 kg Physical Exam Narrative: General: Alert oriented x3, patient seen laying in bed at this time, tachycardic HEENT: Normocephalic, atraumatic, EOMI, breathing slightly fast appears mildly tachypneic. Appears distressed due to back pain. Cardio: Irregularly irregular, tachycardic, normal S1-S2, Respiratory: Clear to auscultation bilaterally with mild crackles bilaterally at bases GI: Abdomen soft, nontender, mildly distended, bowel sounds +, no rebound tenderness, no guarding Extremities: No bilateral lower extremity edema Data 10/18/22 22:05 10/18/22 22:05 A&P Assessment and plan (1) Acute upper GI bleed: (2) COPD (chronic obstructive pulmonary disease): (3) Atrial fibrillation with rapid ventricular response: (4) Hypotension: (5) Shock: (6) Dehydration: (7) Acute blood loss anemia: (8) Chronic anticoagulation: (9) Melena: (10) Black tarry stools: Plan #Hypovolemic/Hemorrhagic Shock 2/2 GI Bleed #Upper GI bleed, BUN 99 #Melena black tarry stools #Chronically on anticoagulation with Xarelto #A. fib with RVR #Dehydration #Hypotension due to hypovolemia and blood loss #Acute blood loss anemia #Leukocytosis #ARTEMIO on CKD, baseline normal ? Check blood cultures, urine culture - Lactic acid 4.5 ? Transfuse less than 7. Ordered 2 unit packed RBC. Check posttransfusion CBC 2 hours later. Ordered 2 additional units as pt tachy and hypotensive. ? Hold Xarelto at this time ? Placed on IV fluid normal saline 125 cc/h ? Consult general surgery. ? Check H&H every 8 hours ? N.p.o. ? 2 large-bore IVs ? Protonix 40 IV twice daily ? Check iron studies, TIBC ? Keep magnesium above 2, potassium above 4 ? Creatinine 1.4. Continue IV fluids. ?Accu-Chek every 6 hours ? DuoNeb every 4 hours as needed ? Hold Cardizem at this time. May use metoprolol 5 mg IV every 4 hours as needed. ? Hold lisinopril, hold tamsulosin - call center consultant surgeon rominaal pt, he will be taken to GI lab for emergent EGD. - Attempted CT abdomen pelvis but pt could not tolerate laying flat and he is unstable - FFP and unit of platelet ordered pending - Andexanet alpha ordered STAT Full code DVT prophylaxis: SCDs will suffice. Attestations Medical Necessity Statement*: Will cross > 2 midnight stay for management of GI bleed. Critical Care Time: The high probability of a clinically significant, sudden or life threatening deterioration of the patient's [CVS,RESP,] system(s) required my full and direct attention, intervention and personal management. The critical care time is as shown. This time is in addition to time spent performing any reported procedures but includes the following: [x] Data and vital sign review and interpretation [x] Patient assessment, examination and intervention [x] Documentation [x] Medication orders and management Critical Care Time (min): 60 Coding Level of Care Code Acute Porcelain Enameler for g Fwd Diagnoses Acute upper GI bleed K92.2 COPD (chronic obstructive pulmonary disease) J44.9 Atrial fibrillation with rapid ventricular response I48.91 Hypotension I95.9 Shock R57.9 Dehydration E86.0 Acute blood loss anemia D62 Chronic anticoagulation Z79.01 Melena K92.1 Black tarry stools K92.1
[2022-10-19] VITALS (67 sets, daily range): BP systolic 82–143; BP diastolic 36–106; PULSE 87–148; RESP 12–29; TEMP 36.4–36.9; O2SAT 87–99; BMI 30.5
[2022-10-19] MEDS: albuterol 2.5 mg/3 mL Neb INHALATION ×4 (00:42→19:36)
[2022-10-19] MEDS: sodium chloride 0.9% 250 ML 999 ML IV ×2 (00:45→02:10)
[2022-10-19 01:11] LABS: Hepatitis A Antibody IgM Non-Reactive (Nonreactive); Hepatitis B Core AB, Total Non-Reactive (Nonreactive); Hepatitis B Surface AB 3.5 (11.5-1000); Hepatitis B Surface Antigen Non-Reactive (Nonreactive); Hepatitis C Virus Antibody Non-Reactive (Nonreactive)
[2022-10-19 01:12] LABS: INR 2.38 (0.8-1.2); Partial Thromboplastin Time 29.4 SECONDS (23.9-36.7)
--- NOTE | 2022-10-19 01:13 | CTR_ITS ---
PROCEDURE INFORMATION: Exam: CT Abdomen And Pelvis With Contrast Exam date and time: 10/19/2022 11:04 AM Age: 72 years old Clinical indication: Abdominal pain; Additional info: Abd pain TECHNIQUE: Imaging protocol: Computed tomography of the abdomen and pelvis with contrast. Contrast material: OMNI 350; Contrast volume: 100 ml; Contrast route: INTRAVENOUS (IV); COMPARISON: CT angio chest PE protcl [id number] 08/25/2022 1:40 PM RADIATION DOSE METRICS: Total DLP (mGy-cm): 1051.83 FINDINGS: Liver: Large cyst in the liver again noted similar to prior exam. Gallbladder and bile ducts: The gallbladder is distended with normal wall thickness and does not demonstrate calcified gallstones. No intra- or extra-hepatic biliary ductal dilatation. Pancreas: The pancreas appears normal. Spleen: The spleen appears normal. Adrenal glands: The adrenals appear normal. Kidneys and ureters: Simple appearing, fluid density cysts noted in the kidneys bilaterally. Mild bilateral perinephric fat stranding. No hydronephrosis or hydroureter. No renal or ureteral stones identified. Stomach and bowel: Metallic possible endoscopic clip noted in the distal stomach. The small bowel loops are not abnormally dilated. The large bowel loops are not abnormally dilated. Colonic diverticulosis noted. Trace fluid in the left paracolic gutter with questionable adjacent fat stranding along the posterior margin of the descending colon in the region of diverticula. No significant colonic wall thickening identified. Appendix: The appendix is not readily identified. Intraperitoneal space: Minimal fluid in the left paracolic gutter. Vasculature: The aorta is nonaneurysmal. The IVC appears normal. Lymph nodes: There are no enlarged lymph nodes. Urinary bladder: Ash catheter noted within the urinary bladder which is non-distended. Reproductive: Unremarkable as visualized. Bones/joints: Multilevel degenerative changes in the spine. Soft tissues: 1.6 cm fat containing umbilical hernia. Small supraumbilical ventral fat containing hernias. CT/CT abdomen pelvis w con* [id number] IMPRESSION: 1. Metallic possible endoscopic clip noted in the distal stomach. Recommend clinical correlation for any recent procedure. 2. Colonic diverticulosis noted with trace left-sided paracolic fluid and questionable fat stranding may be consistent with mild diverticulitis in the descending colon. No significant colonic wall thickening identified. COMMENTS: Consistent with the [employer]'s Incidental Findings Committee white paper (J Am Mona Radiol 2018): Any incidental renal lesion less than 1 cm or classified as too small to characterize, or any incidental cystic renal lesion characterized as simple-appearing, is likely benign. No follow-up imaging is recommended for these lesions per consensus recommendations based on imaging criteria.
--- NOTE | 2022-10-19 01:41 | XRR_ITS ---
PROCEDURE INFORMATION: Exam: XR Chest Exam date and time: 10/19/2022 1:42 AM Age: 72 years old Clinical indication: Other vascular access device placement or adjustment; Central line, tunnelled; Patient HX: Check S/P central line placement TECHNIQUE: Imaging protocol: Radiologic exam of the chest. Views: 1 view. COMPARISON: CR (CHEST, ) 10/18/2022 9:56 PM FINDINGS: Tubes, catheters and devices: Right-sided central venous line noted with the distal tip in the mid SVC. Lungs: No significant airspace consolidation concerning for pneumonia within the limited field of view. Pleural spaces: No pneumothorax. No pleural effusion. Heart/Mediastinum: The cardiac silhouette is enlarged. Bones/joints: Unremarkable. Soft tissues: The entirety of the left chest is not included in the field of view. XR/XR chest 1V portable [id number] IMPRESSION: 1. Right-sided central venous line noted with the distal tip in the mid SVC. 2. The entirety of the left chest is not included in the field of view. 3. No significant airspace consolidation concerning for pneumonia within the limited field of view.
[2022-10-19] MEDS: sodium chloride 0.9% 250 ML IV (02:00)
[2022-10-19] MEDS: factor xa, inactivated-zhzo 800 MG in empty flexible container 1 EACH, non-DEHP filter ... 180 MG IV (02:11)
--- NOTE | 2022-10-19 02:11 | PM.CONSULT ---
Providers/Reason For Consult Consulting Physician/Specialty*: Dr. Chris Briceño, General Surgery Reason for Consult*: Emergent Upper Endoscopy Requesting Physician: Dr. Nuris Durán Attending Physician: Anjali Alicea MD History of Present Illness History of Present Illness Jace Christie is a 72 year old male who presents after a fall, found to have hypotension and acute blood loss anemia in setting of black tarry stools earlier today which he has never experienced before, on Eliquis for Afib. Patient reports baseline back pain and denies any form of vomiting. He reports no allergies and no prior abdominal surgeries. He is agreeable to emergent upper endoscopy with injection and clip placement for likely upper GI bleed. Review of Systems General: Reports: 10 or more systems reviewed and unremarkable except in HPI and below Const: Reports: other (generalized weakness) GI: Reports: melena Medications/Allergies Home Medications Medication Instructions Recorded Confirmed Last Taken Type Cam Boot to the right foot #1 ea 06/14/22 10/03/22 Unknown Rx albuterol sulfate 90 mcg/actuation 2 puff inhalation Q4H PRN 06/14/22 10/03/22 08/11/22 08:00 History aerosol inhaler Shortness Of Breath diltiazem HCl 240 mg capsule,24 240 mg PO QAM 06/21/22 10/03/22 08/25/22 History hr,extended release fluticasone furoate 200 1 inh inhalation QAM 06/21/22 10/03/22 08/25/22 History mcg-vilanterol 25 mcg/dose inhalation powder (Breo Ellipta) lisinopril 20 mg tablet 20 mg PO QAM 06/21/22 10/03/22 08/25/22 History rivaroxaban 20 mg tablet (Xarelto) 20 mg PO BEDTIME 06/21/22 10/03/22 08/24/22 History tamsulosin 0.4 mg capsule 0.8 mg PO BEDTIME 06/21/22 10/03/22 08/24/22 History Crutches #1 ea 06/22/22 10/03/22 Unknown Rx Dressing Supplies #1 ea 08/15/22 10/03/22 Unknown Rx acetaminophen 500 mg tablet 1,000 mg PO Q6H PRN Pain 08/25/22 10/03/22 Unknown History ipratropium 0.5 mg-albuterol 3 mg 3 ml inhalation QID 08/25/22 10/03/22 08/25/22 07:00 History (2.5 mg base)/3 mL nebulization soln albuterol sulfate 90 mcg/actuation 2 inh inhalation Q8H PRN shortness 08/29/22 10/03/22 Unknown Rx aerosol inhaler of breath or wheezing #8.5 grams amoxicillin 875 mg-potassium 1 tab PO BID #10 tabs 08/29/22 10/03/22 08/25/22 Rx clavulanate 125 mg tablet longcwnyeecpm-OL-hjagjulosar 2.5 15 ml PO Q4H PRN cold symptoms 08/29/22 10/03/22 Unknown Rx mg-5 mg-50 mg/5 mL oral liquid #118 mL (Robitussin Cough and Cold CF) Optifoam Silicone Bordered Foam #1 ea 09/11/22 10/03/22 Unknown Rx Dressing cadexomer iodine 0.9 % topical gel 40 g topical Q3D #40 grams 09/27/22 10/03/22 Unknown Rx (Iodosorb) Allergies Allergy/AdvReac Type Severity Reaction Status Date / Time No Known Allergies Allergy Verified 10/03/22 13:49 Current Medications Generic Name Dose Route Start Last Admin Trade Name Freq PRN Reason Stop Dose Admin Pantoprazole Sodium 40 mg/ 100 mls @ 20 mls/hr 10/18/22 21:57 10/18/22 22:43 Sodium Chloride IV 10/19/22 02:56 8 mg/hr .Q5H ONE 20 mls/hr Administration 8 MG/HR Sodium Chloride 250 mls @ 999 mls/hr 10/19/22 00:30 10/19/22 00:45 Sodium Chloride 0.9% IV 999 mls/hr .Q16M JOSÉ MIGUEL Administration PFSH Acute PFSH: Medical History (Updated 10/19/22 @ 01:01 by Anjali Alicea MD) COPD exacerbation COVID Dehiscence of amputation stump of right lower extremity Diabetic peripheral neuropathy associated with type 2 diabetes mellitus History of amputation of great toe Hyperglycemia Hypoxemia Non-pressure 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 Surgical History S/P foot surgery, right 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 Family History Denies family history of Cancer Social History Smoking and tobacco status: current every day smoker Vitals/I&O/Wt Last Vital Signs Temp 97.9 F 10/19/22 01:01 Pulse 148 H 10/19/22 01:01 Resp 22 H 10/19/22 01:01 BP 92/36 10/19/22 01:01 Pulse Ox 95 10/19/22 01:01 O2 Del Method 10/19/22 00:42 O2 Flow Rate 3 10/19/22 00:42 10/18/22 10/18/22 10/19/22 14:59 22:59 06:59 Intake Total 1000 / 1000 Balance 1000 / 1000 Weight last 48 hrs Weight 235 lb Physical Exam Const: COMMON NORMALS: patient oriented x3, alert and well nourished GENERAL APPEARANCE: cooperative and ill appearing NUTRITIONAL APPEARANCE: obese centrally obese ORIENTATION/CONSCIOUSNESS: Yes awake, Yes oriented to person, Yes oriented to place and Yes oriented to time HENMT: COMMON NORMALS: normocephalic, atraumatic, external ears normal and Normal external nose present HEAD & SCALP: normocephalic and atraumatic FACE & SINUS: normal facial exam and face symmetric NOSE: Normal external nose present EXTERNAL EAR: Yes external ears normal Eye: COMMON NORMALS: EOMs intact bilaterally and no scleral icterus GENERAL EYE: appearance normal, both eyes and all related structures Neck/C-Spine: COMMON NORMALS: supple and no JVD GENERAL: Yes normal visual inspection OTHER: R IJ Central line in place Chest: COMMONS NORMALS: normal inspection of the chest and normal palpation of entire chest wall CHEST: Yes Symmetrical chest wall rise and No tenderness Resp: COMMON NORMALS: normal respiratory effort and No use of accessory muscles EFFORT & INSPECTION: Yes able to speak in complete sentences and No respiratory distress Cardio: COMMON NORMALS: no JVD PERIPHERAL PULSES: radial pulses present and posterior tibial pulses present GI: COMMON NORMALS: Soft to palpation INSPECTION: Yes central obesity PALPATION: Yes Soft to palpation, Yes Tenderness to palpation present (GI) (mild epigastric tenderness) and Yes Hernia present umbilical (easily reducible) RECTAL EXAM: Yes deferred Extremity: RIGHT LOWER EXTREMITY: Yes foot & digits Right foot and digits: Yes inspection (in dressing for diabetic wound) Neuro: JOSELINE COMA SCALE: document GCS findings [place] coma scale eye opening: Spontaneous [place] coma scale verbal response: Orientated [place] coma scale motor response: Obey commands [place] coma scale total score: 15 COMMON NORMALS: patient oriented x3, CN's II-XII intact bilaterally, moves all extremities, no focal motor deficits and no sensory deficits noted SENSORIUM/ORIENTATION: Yes alert, Yes oriented to person, Yes oriented to place and Yes oriented to time SPEECH: speech normal Psych: COMMON NORMALS: mental status grossly normal, cooperative and speech normal SPEECH: Yes normal speech Skin: GENERAL SKIN EXAM: ecchymosis (right hand and distal forearm) Urinary Catheter Management: Ash: Cath Placed During This Visit: yes Urethral Indwelling: Yes Reason for Continuing Indwelling Catheter: Accurate Measurement of Urinary Output in Critically Ill Patients Urinary Catheter Date of Insertion: 10/19/22 Urinary Catheter Time of Insertion: 02:00 Data 10/18/22 22:05 10/18/22 22:05 US: My impression: Bedside FAST exam performed by Dr. Nuris Durán showed no evidence of peritoneal fluid, did show moderate pericardial effusion. A&P Assessment and plan (1) Melena: (2) Hypotension: (3) Shock: (4) Acute blood loss anemia: (5) Chronic anticoagulation: (6) Acute upper GI bleed: Plan Fall likely secondary to hypotension from acute blood loss anemia secondary to therapeutic anticoagulation, likely upper GI bleed given history of new onset melena. Agree with aggresive IV resuscitation Reversal of anticoagulation Emergent upper endoscopy, risks and benefits discussed with patient and he desires to proceed Coding Level of Care Code New Pt Acute Director Operations for g Fwd Patient Type New History Comprehensive Exam Comprehensive Medical Decision Making High Complexity Diagnoses Melena K92.1 Hypotension I95.9 Shock R57.9 Acute blood loss anemia D62 Chronic anticoagulation Z79.01 Acute upper GI bleed K92.2
[2022-10-19] MEDS: factor xa, inactivated-zhzo 960 MG in empty flexible container 1 EACH, non-DEHP filter ... 48 MG IV (02:51)
[2022-10-19] MEDS: sodium chloride 0.9% 1,000 ML 30 ML IV (03:00)
[2022-10-19 03:05] LABS: Add Urine Microscopic? NO; Charge for UA Resulting for Rev
--- NOTE | 2022-10-19 03:07 | USCV_ITS ---
Jace Christie Age: 72 Gender: M : 1950 Exam Date: 10/19/2022 08:21 Ordering Phys: Anjali Alicea MD Technologist: Ranjit Perez [place] [facility] [place]: Pericardial effusion BP: 133 / 55 HR: 105 Rhythm: Sinus Technical Quality: Adequate MEASUREMENTS (Male / Female) Normal Values 2D ECHO LV Diastolic Diameter PLAX 4.6 cm 4.2 - 5.9 / 3.9 - 5.3 cm LV Systolic Diameter PLAX 2.8 cm IVS Diastolic Thickness 1.0 cm 0.6 - 1.0 / 0.6 - 0.9 cm IVS Systolic Thickness 1.4 cm LVPW Diastolic Thickness 1.2 cm 0.6 - 1.0 / 0.6 - 0.9 cm LVPW Systolic Thickness 1.4 cm LVOT Diameter 2.1 cm LV Ejection Fraction 2D Teich 67.9 % LV Ejection Fraction MOD 2C 72.2 % LV Ejection Fraction 2C AL 72.9 % LA Diameter 4.5 cm Aorta at Sinotubular Diameter 3.1 cm M-MODE Aortic Annulus Diameter 4.4 cm LA Ao Ratio MM 1.0 MV E Point Septal Separation 1.2 cm DOPPLER AV Peak Velocity 186.0 cm/s LVOT Peak Velocity 123.0 cm/s AV Area Cont Eq vti 2.5 cm squared AV Area Cont Eq pk 2.3 cm squared MV Area PHT 5.0 cm squared Mitral E to A Ratio 1.5 MV E' Velocity 56.5 cm/s Mitral E to MV E' Ratio 15.0 Mitral E to LV E' Lateral Ratio 22.0 Mitral E to LV E' Septal Ratio 11.5 TR Peak Velocity 171.0 cm/s TR Peak Gradient 11.7 mmHg TV Peak E Velocity 116.0 cm/s Right Atrial Pressure 3.0 mmHg Pulmonary Artery Systolic Pressu 14.7 mmHg RV Acceleration Time 0.1 s FINDINGS Left Ventricle Normal left ventricular size, systolic function and wall thickness, with no regional wall motion abnormalities. Left ventricular ejection fraction is estimated at 60-65 %. Abnormal diastolic function. Right Ventricle Normal right ventricular size and systolic function. Right ventricular systolic pressure 14.7 mmHg. Right Atrium Normal right atrial size. Left Atrium Mildly increased left atrial size. Mitral Valve Structurally normal mitral valve. No mitral valve stenosis. No mitral valve regurgitation. Aortic Valve Probably trileaflet aortic valve. No aortic valve stenosis. No aortic valve regurgitation. Tricuspid Valve Structurally normal tricuspid valve. No tricuspid valve stenosis. Trace to mild tricuspid valve regurgitation. Pulmonic Valve Structurally normal pulmonic valve. No pulmonary valve stenosis. Trace pulmonary valve regurgitation. Pericardium Trivial pericardial effusion along right ventricle. Prominent epicardial fat. No evidence of hemodynamic compromise. Aorta Normal size aortic root and proximal ascending aorta. IVC Inferior vena cava not visualized. Hepatic cyst. CONCLUSIONS 1. Normal left ventricular size, systolic function and wall thickness, with no regional wall motion abnormalities. Left ventricular ejection fraction is estimated at 60-65 %. Abnormal diastolic function. 2. Trace to mild tricuspid valve regurgitation. 3. Trivial pericardial effusion along right ventricle. No evidence of hemodynamic compromise. Prominent epicardial fat. Tiffany Butler MD (Electronically Signed) Final Date: 19 October 2022 13:00 S
--- NOTE | 2022-10-19 03:25 | PC.NURSE ---
PT VITALS OF BLOOD GIVEN EMERGENTLY 0155: 98/64BP 110HR 98% 3L 97.9TEMP 0210: 101/78BP 153HR 89% 3L 97.6TEMP 0229: 118/77BP 129HR 97% 3L 97.6TEMP 0245: 109/72BP 134HR 96% 3L
[2022-10-19] MEDS: EPINEPHrine 1 mg/mL INJ XX (03:26)
[2022-10-19 03:33] LABS: Bilirubin Urine Neg (Negative); Blood Urine Neg (Negative); Glucose Urine UA Norm (Normal); Ketones Urine Negative (Negative); Leukocyte Esterase Urine Negative (Negative); Nitrate Urine Negative (Negative); Protein Urine Neg (Negative); Specific Gravity, Urine 1.015 (1.005-1.030); Urine Appearance Clear (CLEAR); Urine Color Yellow (Yellow); Urobilinogen Urine Norm (Negative); pH Urine 5 (5-7)
--- NOTE | 2022-10-19 03:39 | P.OP_ITS ---
Operative Report Date of procedure: October 19, 2022 Pre-op diagnosis: Preop Diagnosis Hemorrhagic shock due to upper GI bleed Post-op diagnosis: Hemorrhagic shock due to upper GI bleed due to prepyloric ulcer Post-op findings: Diffuse severe gastritis Prepyloric ulcer Procedure done: Esophagogastroduodenoscopy, prepyloric ulcer biopsy, and injection of epinephrine and clip placement for management of acute upper GI bleed Specimens removed/disposition: prepyloric ulcer biopsy Surgeon: Chris Briceño Anesthesia: MAC Estimated blood loss (mL): 2 Complications: No immediate complications apparent Findings: Retained Clot Severe diffuse gastritis Prepyloric ulcer without active bleeding Condition: critical Disposition: ICU Brief History: Mr. Jace Christie is a 72 year old male on Eliquis for afib with new onset melena yesterday who presented to ED following a fall, found to be in hemorrhagic shock with acute blood loss anemia. He received 3 units PRBC and Eliquis was reversed in ED. In GI suite prior to GET anesthesia patient vomited 100 mL dark blood. Patient provided further history of taking 6 to 8 tylenol and ibuprofen daily for his back pain. Procedure: Patient's dentures were removed and he was positioned supine in slight semi- Hare position and GET anesthesia was induced without issue. The endoscope was passed through the oropharynx and the esophagus was intubated without difficulty and advanced to the stomach without identification of any esophageal pathology. There was retained blood clot within the stomach which was irrigated and suctioned away. Diffuse severe gastritis was apparent without active bleeding. The pylorus was easily passed and the endoscope advanced to the second portion of the duodenum. There was evidence of prior bleeding without any active bleeding nor mucosal abnormalities within the duodenum. Upon withdrawal back to the stomach an anterior prepyloric ulcer ~1cm in size was identified and biopsy obtained of center and margin and sent for permanent pathology. The endoscope was retroflexed and no additional fundal pathology identified. There was slight bleeding following biopsy of prepyloric ulcer, and hemostasis was achieved and reinforced with circumferential injection of 10 mL [id number] epinephrine solution and a clip placed with good approximation of ulcer margins. The stomach was desufflated and the procedure terminated. The patient remains in critical condition and was transferred to ICU for further resuscitation following the procedure. Related Problem List Diagnoses (1) Melena: (2) Acute blood loss anemia: (3) Shock: (4) Acute upper GI bleed:
[2022-10-19 03:45] LABS: HIV 1 & 2 Antibody Non-Reactive (Non-Reactiv); HIV 1 & 2 Antigen Non-Reactive (Non-Reactiv)
[2022-10-19 04:33] LABS: Basophils # 0.1 10^3/uL (0.0-0.1); Basophils % 0.4 %; Eosinophils # 0.1 10^3/uL (0.0-0.8); Eosinophils % 0.4 %; Hematocrit 29.4 % (42.0-52.0); Hemoglobin 9.4 g/dL (11.7-16.6); Lymphocytes % 10.3 %; Mean Corpuscular Volume 93.9 fl (80-94); Monocytes # 1.4 10^3/uL (0.2-0.9); Monocytes % 7.2 %; Neutrophils # 13.95 10^3/uL (1.8-7.7); Neutrophils % 73.6 %; Nucleated Red Blood Cells # 0.1 /100WBC; Nucleated Red Blood Cells % 0.4 %; Platelet Count 222 10^3/cmm (130-400); Red Blood Count 3.13 10^6/uL (4.1-5.3); Red Cell Distribution Width 15.7 % (12.1-15.1)
[2022-10-19 04:52] LABS: Alanine Aminotransferase 12 U/L (0-41); Albumin Level 2.9 g/dL (3.5-5.2); Alkaline Phosphatase 51 U/L (40-130); Anion Gap 16.3 (5-19); Aspartate Amino Transferase 8 U/L (0-40); Calcium 7.4 mg/dL (8.5-10.5); Carbon Dioxide 22 mmol/L (22-29); Chloride 103 mmol/L (98-107); Globulin 1.4 g/dL (1.3-4.6); Glucose 205 mg/dL (65-115); Magnesium 3.4 mg/dL (1.7-2.3); Osmolality Calculated 321 mOsm/kg (285-295); Potassium 4.3 mmol/L (3.5-5.1); Sodium 137 mmol/L (136-145); Total Bilirubin 0.5 mg/dL (0.15-1.2); Total Protein 4.3 g/dL (6.6-8.7)
[2022-10-19 04:53] LABS: Absolute Eosinophils 0.2 10^3/cmm (0.0-0.7); Absolute Neutrophil 14.9 10^3/cmm (1.4-6.5); Absolute Segmented Neutrophil 14.7 10/cmm (1.6-7.1); Anisocytosis 1+; Band Neutrophils Absolute 0.2 10^3/cmm (0.0-1.2); Eosinophils 1 %; Lymphocytes 15 %; Platelet Estimate Normal (Normal); Segmented Neutrophils 73 %; Total Cells Counted 100 (0-100)
[2022-10-19 05:15] LABS: Blood Urea Nitrogen 101 mg/dL (8-23)
[2022-10-19] MEDS: methocarbamol 750 mg Tablet PO (05:20)
[2022-10-19] MEDS: piperacillin-tazobactam 3.375 GM in sodium chloride 0.9% (plus) 50 ML IV ×3 (05:55→20:16)
[2022-10-19] MEDS: morphine 4 mg/mL SDV 1 mL 2 MG IVP ×4 (06:00→22:13)
[2022-10-19 06:07] LABS: Lactic Sepsis W/Reflex 2.6 mmol/L (0.5-2.2)
[2022-10-19] MEDS: sodium chloride 0.9% 1,000 ML 100 ML IV (07:01)
[2022-10-19 07:32] LABS: Reflex Lactate Order REFLEX LACTIC ORDERD
--- NOTE | 2022-10-19 07:37 | P.PN_ITS ---
Subjective Subjective: Admitted overnight with acute hemorrhagic shock due to upper GI bleed, endoscopy revealed prepyloric ulcer, likely NSAID-induced. Received 4th total unit PRBC in ICU following procedure. Vitals/I&O/Wt Last Vital Signs Temp 98.5 F 10/19/22 07:00 Pulse 105 H 10/19/22 07:00 Resp 15 10/19/22 07:00 BP 117/57 10/19/22 07:00 Pulse Ox 99 10/19/22 07:00 O2 Del Method 10/19/22 06:00 O2 Flow Rate 2 10/19/22 06:00 10/18/22 10/19/22 10/19/22 22:59 06:59 14:59 Intake Total 3835 / 3835 350 / 350 Output Total 1000 / 1000 Balance 2835 / 2835 350 / 350 Weight last 48 hrs Weight 238 lb Weight 238 lb Weight 235 lb Physical Exam Const: COMMON NORMALS: no acute distress GENERAL APPEARANCE: cooperative, comfortable and well developed HENMT: COMMON NORMALS: normocephalic, atraumatic, external ears normal and Nor mal external nose present HEAD & SCALP: normocephalic and atraumatic NOSE: Normal external nose present EXTERNAL EAR: Yes external ears normal Resp: COMMON NORMALS: normal respiratory effort and No retractions EFFORT & INSPECTION: Yes symmetric chest movement and No respiratory distress Cardio: COMMON NORMALS: regular rate RATE: regular rate GI: COMMON NORMALS: Soft to palpation and non-tender PALPATION: Yes Soft to palpation Urinary Catheter Management: Ash: Cath Placed During This Visit: yes Urethral Indwelling: Yes Reason for Continuing Indwelling Catheter: Accurate Measurement of Urinary Output in Critically Ill Patients Urinary Catheter Date of Insertion: 10/19/22 Urinary Catheter Time of Insertion: 02:00 Data 10/19/22 04:08 10/19/22 04:08 Micro: Microbiology 10/19/22 04:16 Blood Culture - Preliminary Blood SPECIMEN COLLECTED 10/19/22 04:08 Blood Culture - Preliminary Blood SPECIMEN COLLECTED A&P Assessment and plan (1) Acute blood loss anemia: (2) Shock: (3) Acute upper GI bleed: Plan Admitted to ICU with acute hemorrhagic shock due to upper GI bleed (on Eliquis for afib, reversed). S/P emergent upper endoscopy with biopsy, epinephrine injection, and clip application to prepyloric ulcer. Hymodynamics improved at time of evaluation this morning. Serial laboratory evaluation pending. Will continue to monitor. Attestations Medical Necessity Statement*: Requires ICU level of care for acute hemorrhagic shock due to upper GI bleed due to prepyloric ulcer, likely NSAID-induced in setting of therapeutic anticoagulation. Coding Level of Care Code Acute Insurance Claim Auditor for [facility] Fwd Diagnoses Acute blood loss anemia D62 Shock R57.9 Acute upper GI bleed K92.2
--- NOTE | 2022-10-19 08:02 | PC.NURSE ---
Physician Communication At 0346, report called from GI lab, blood pressure reported as soft. Dr. Alicea stated previously to call her with updates when patient close to coming to unit. Dr. Alicea contacted and order received to transfuse the fourth unit of prbcs and one unit of ffp previously ordered, CBC to follow two hours after blood transfused. Around 0500, 3 various NS maintenance fluid orders active. Additionally, patient complaining of chronic severe back pain at a 10 on a 1-[address] Alicea contacted; verbal orders received to initiate NS as a maintenance fluid at 100 ml/hr continuous and for a one time dose of 2 mg morphine IVP for pain. See MAR for details.
--- NOTE | 2022-10-19 09:05 | ANES.PREANE2 ---
Pre-Anesthetic Assessment Height/Weight: Height 1.88 m Weight 107.955 kg Temp Pulse Resp BP Pulse Ox O2 Del Method O2 Flow Rate 98.5 F 105 H 15 117/57 99 2 10/19/22 07:00 10/19/22 07:00 10/19/22 07:00 10/19/22 07:00 10/19/22 07:00 10/19/22 06:00 10/19/22 06:00 Preop Diagnosis: Osteomyelitis right foot Operation Date: 10/19/22 02:30 Proposed Procedures p EGD(Not Applicable) - Chris Briceño MD Familial anesthetic complications: none Was Beta Flor taken within 24 hours: N/A Was Clonidine taken within 24 hours: N/A Last intake: Intake Last Liquid Date 10/18/22 Last Liquid Time 20:00 Last Solid Date 10/18/22 Last Solid Time 09:00 Social No alcohol and No tobacco Exam alert, oriented x 3 and clear to auscultation bilaterally Airway Submandibular: within normal limits Cervical ROM: within normal limits Mallampati: Class II Dentition: false Pulmonary Chronic Obstructive Pulmonary Disease CV/HEM Atrial Fibrillation, Anemia and Hypertension GI Gastroesophageal Reflux Disease acute GI bleed Metabolic Diabetes Mellitus chronic steroid Neuropsych Neuropathy Anesthetic Plan ASA status: 3E Anesthesia: General Medications/Allergies Home Medications Medication Instructions Recorded Confirmed Last Taken Type Cam Boot to the right foot #1 ea 06/14/22 10/19/22 Unknown Rx diltiazem HCl 240 mg capsule,24 240 mg PO QAM 06/21/22 10/19/22 08/25/22 History hr,extended release fluticasone furoate 200 1 inh inhalation QAM 06/21/22 10/19/22 08/25/22 History mcg-vilanterol 25 mcg/dose inhalation powder (Breo Ellipta) tamsulosin 0.4 mg capsule 0.8 mg PO BEDTIME 06/21/22 10/19/22 08/24/22 History Crutches #1 ea 06/22/22 10/19/22 Unknown Rx Dressing Supplies #1 ea 08/15/22 10/19/22 Unknown Rx acetaminophen 500 mg tablet 1,000 mg PO Q6H PRN Pain 08/25/22 10/19/22 Unknown History ipratropium 0.5 mg-albuterol 3 mg 3 ml inhalation QID 1110/19/22 08/25/22 07:00 History (2.5 mg base)/3 mL nebulization soln albuterol sulfate 90 mcg/actuation 2 inh inhalation Q8H PRN shortness 08/29/22 10/19/22 Unknown Rx aerosol inhaler of breath or wheezing #8.5 grams Optifoam Silicone Bordered Foam #1 ea 09/11/22 10/19/22 Unknown Rx Dressing diclofenac sodium 1 % topical gel 2 g topical QID 10/19/22 10/19/22 Unknown History hydrochlorothiazide 25 mg tablet 25 mg PO DAILY 10/19/22 10/19/22 Unknown History lisinopril 40 mg tablet 20 mg PO DAILY 10/19/22 10/19/22 Unknown History metformin 500 mg tablet,extended 1,000 mg PO DAILY 10/19/22 10/19/22 Unknown History release 24 hr prednisone 10 mg tablet 10 mg PO BID 10/19/22 10/19/22 Unknown History rivaroxaban 20 mg tablet 20 mg PO DAILY 10/19/22 10/19/22 Unknown History trazodone 100 mg tablet 50 mg PO BEDTIME 10/19/22 10/19/22 Unknown History Allergies Allergy/AdvReac Type Severity Reaction Status Date / Time No Known Allergies Allergy Verified 10/03/22 13:49 Current Medications Generic Name Dose Route Start Last Admin Trade Name Freq PRN Reason Stop Dose Admin Piperacillin Sod/Tazobactam 50 mls @ 12.5 mls/hr 10/19/22 05:15 10/19/22 05:55 Sod 3.375 gm/ Sodium Chloride IV 12.5 mls/hr Q8H JOSÉ MIGUEL Administration PFSH Anesthesia Medical History (Updated 10/19/22 @ 01:01 by Anjali Alicea MD) COPD exacerbation COVID Dehiscence of amputation stump of right lower extremity Diabetic peripheral neuropathy associated with type 2 diabetes mellitus History of amputation of great toe Hyperglycemia Hypoxemia Non-pressure 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 Surgical History S/P foot surgery, right 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 Family History Denies family history of Cancer Social History Smoking and tobacco status: current every day smoker Data Anesthesia 10/19/22 04:08 10/19/22 04:08 Short CBC 10/18/22 10/19/22 Range/Units 22:05 04:08 WBC 20.2 H 19.0 H (4.0-10.0) 10^3/uL Hgb 6.9 L 9.4 L D (11.7-16.6) g/dL Hct 22.4 L 29.4 L D (42.0-52.0) % MCV 98.7 H 93.9 (80-94) fl Plt Count 266 222 (130-400) 10^3/cmm Neut % (Auto) Director Operations Broadcast 73.6 Neut # (Auto) Director Operations Broadcast 13.95 H BMP 10/18/22 10/19/22 22:05 04:08 Sodium 135 L 137 Potassium 4.3 4.3 Chloride 99 103 Carbon Dioxide 22 22 BUN 99 H* D 101 H* Creatinine 1.4 H 1.3 H Glucose 238 H 205 H Calcium 8.1 L 7.4 L Liver Function 10/18/22 10/19/22 Range/Units 22:05 04:08 Total Bilirubin 0.2 0.5 (0.15-1.2) mg/dL AST 7 8 (0-40) U/L ALT 14 12 (0-41) U/L Alkaline Phosphatase 49 51 (40-130) U/L Albumin 3.0 L 2.9 L (3.5-5.2) g/dL Urine 10/19/22 Range/Units 02:58 Urine Color Yellow (Yellow) Urine Appearance Clear (CLEAR) Urine pH 5 (5-7) Ur Specific [place] 1.015 (1.005-1.030) Urine Protein Neg (Negative) Urine Glucose (UA) Norm (Normal) Urine Ketones Negative (Negative) Urine Nitrate Negative (Negative) Urine Bilirubin Neg (Negative) Ur Leukocyte Esterase Negative (Negative) Blood Bank 10/18/22 22:05 Blood Type O Positive Rho(D) Type Positive Antibody Screen Negative Coags 10/18/22 22:05 PT 26.30 H INR 2.38 H APTT 29.4 Microbiology 10/19/22 04:16 Blood Culture - Preliminary Blood SPECIMEN COLLECTED 10/19/22 04:08 Blood Culture - Preliminary Blood SPECIMEN COLLECTED Cardiac Studies: Echocardiogram 08/25/22
--- NOTE | 2022-10-19 09:07 | ANE.PACU2 ---
Inpatient post-anesthesia follow up: Airway intact: Yes Vital signs: Temperature 98.5 F Pulse Rate 105 Respiratory Rate 15 Blood Pressure 117/57 Pulse Oximetry 99 Oxygen Delivery Me thod Nasal Cannula Oxygen Flow Rate 2 Fraction of Inspir ed Oxygen Hydration adequate: Yes Nausea and vomiting: No Pain level: 2 Mental status: Baseline
[2022-10-19] MEDS: ipratropium-albuterol 3 mL Neb INHALATION (09:25)
[2022-10-19 09:37] LABS: Hematocrit 29.7 % (42.0-52.0); Hemoglobin 9.8 g/dL (11.7-16.6); Mean Corpuscular Hemoglobin 30.2 pg (28.0-34.0); Mean Corpuscular Volume 91.7 fl (80-94); Mean Platelet Volume 10.3 fL (7.4-10.4); Platelet Count 186 10^3/cmm (130-400); Red Blood Count 3.24 10^6/uL (4.1-5.3); Red Cell Distribution Width 15.8 % (12.1-15.1); White Blood Count 18.2 10^3/uL (4.0-10.0)
[2022-10-19] MEDS: pantoprazole 40 mg SDV IVP ×2 (09:43→18:00)
[2022-10-19 09:59] LABS: Slide Review Slide Review Perform
[2022-10-19 10:05] LABS: Lactic Acid level (Lactate) 2.8 mmol/L (0.5-2.2)
[2022-10-19 11:09] LABS: Hematocrit 30.3 % (42.0-52.0); Hemoglobin 10.2 g/dL (11.7-16.6)
[2022-10-19] MEDS: iohexol 350 mg/mL 500 mL Btl (per mL) IV (11:13)
--- NOTE | 2022-10-19 12:46 | P.PN_ITS ---
Subjective Subjective: Patient was seen and examined this morning he was complaining of some shortness of breath, denied any other complaint. Medications: Medication Review Details: Generic Name Dose Route Start Last Admin Trade Name Garry PRN Reason Stop Dose Admin Albuterol Sulfate 2.5 mg 10/19/22 12:00 10/19/22 11:34 Albuterol 2.5 Mg /3 Ml Neb INHALATION 2.5 mg QID.RESPIRATORY S CH Administration Albuterol/Ipratrop ium 3 ml 10/19/22 04:10 10/19/22 09:25 Ipratropium-Albu terol 3 Ml Neb INHALATION 3 ml Q6H PRN Administration SHORTNESS OF MELI TH Piperacillin Sod/T azobactam 50 mls @ 12.5 mls /hr 10/19/22 05:15 10/19/22 12:24 Sod 3.375 gm/ So dium Chloride IV Infused Q8H JOSÉ MIGUEL Infusion Sodium Chloride 1,000 mls @ 50 ml s/hr 10/19/22 09:15 10/19/22 09:22 Sodium Chloride 0.9% IV Not Given .Q20H JOSÉ MIGUEL Morphine Sulfate 2 mg 10/19/22 09:20 10/19/22 09:43 Morphine 4 Mg/Ml Sdv 1 Ml IVP 2 mg Q4H PRN Administration SEVERE PAIN Pantoprazole Sodiu m 40 mg 10/19/22 09:05 10/19/22 09:43 Pantoprazole 40 Mg Sdv IVP 40 mg BID JOSÉ MIGUEL Administration Vitals/I&O/Wt Last Vital Signs Temp 98.4 F 10/19/22 12:20 Pulse 120 H 10/19/22 12:20 Resp 21 H 10/19/22 12:20 BP 105/74 10/19/22 12:20 Pulse Ox 95 10/19/22 12:20 O2 Del Method 10/19/22 11:25 O2 Flow Rate 2 10/19/22 10:00 10/18/22 10/19/22 10/19/22 22:59 06:59 14:59 Intake Total 3835 / 3835 635 / 635 Output Total 1000 / 1000 800 / 800 Balance 2835 / 2835 -165 / -165 Weight last 48 hrs Weight 107.955 kg Weight 107.955 kg Weight 106.594 kg Physical Exam Const: COMMON NORMALS: patient oriented x3 HENMT: COMMON NORMALS: normocephalic and atraumatic HEAD & SCALP: normocephalic and atraumatic Resp: COMMON NORMALS: clear to auscultation bilaterally EFFORT & INSPECTION: Yes symmetric chest movement AUSCULTATION: clear to auscultation bilaterally OTHER: Diminished air entry bilaterally Cardio: COMMON NORMALS: regular rate, regular rhythm, S1 normal heart sound present, S2 normal heart sound present, No gallops present (Cardio), No murmurs present (Cardio), No rub (Cardio) and Peripheral pulses 2+ throughout RATE: regular rate RHYTHM: regular rhythm HEART SOUNDS: S1 normal heart sound present and S2 normal heart sound present PERIPHERAL PULSES: Peripheral pulses 2+ throughout GI: COMMON NORMALS: Normal to inspection, nondistended, normoactive bowel sounds present, Soft to palpation, non-tender, No hepatosplenomegaly present and no masses AUSCULTATION: Yes normoactive bowel sounds PALPATION: Yes Soft to palpation and Yes No hepatosplenomegaly present RECTAL EXAM: Yes deferred Extremity: COMMON NORMALS: no clubbing, cyanosis or edema and no pedal edema Neuro: COMMON NORMALS: patient oriented x3 Urinary Catheter Management: Ash: Cath Placed During This Visit: yes Urethral Indwelling: Yes Reason for Continuing Indwelling Catheter: Accurate Measurement of Urinary Output in Critically Ill Patients Urinary Catheter Date of Insertion: 10/19/22 Urinary Catheter Time of Insertion: 02:00 Data 10/19/22 11:00 10/19/22 04:08 Micro: Microbiology 10/19/22 04:16 Blood Culture - Preliminary Blood SPECIMEN COLLECTED 10/19/22 04:08 Blood Culture - Preliminary Blood SPECIMEN COLLECTED A&P Assessment and plan (1) Acute upper GI bleed: (2) COPD (chronic obstructive pulmonary disease): (3) Atrial fibrillation with rapid ventricular response: (4) Hypotension: (5) Shock: (6) Dehydration: (7) Acute blood loss anemia: (8) Chronic anticoagulation: (9) Melena: (10) Black tarry stools: Plan 71-year-old male with past medical history of COPD, diabetes COVID, atrial fibrillation on Xarelto presented with chief complaint of black stool started yesterday as well as one episode of hemoptysis, he was having generalized weakness for last few days, he was found to be hypotensive in the ER, subsequent blood work revealed H&H: 6.9/22.Currently patient is being managed for. Assessment Hypovolemic shock secondary to acute blood loss secondary to GI bleed likely secondary to chronic anticoagulation, as well as recently he was taking lots of NSAIDs. UGIB History of atrial fibrillation Disproportionately high BUN: With relatively normal serum creatinine: Points towards GI bleed History of COPD History of diabetes Leukocytosis: Currently empirically on Zosyn: To cover for possible GI transloc ation: In the setting of hemorrhagic shock. ARTEMIO on CKD: Likely secondary to acute hypotension, secondary to GI bleed Elevated lactic acid: Secondary to acute hypotension Plan: CT abdomen pelvis w con: No significant finding Status post EGD: With epinephrine injection.and clip placement. Severe diffuse gastritis , Prepyloric ulcer without active bleeding. Status post factor Xa recombinant(adenexate alpha ) , status post 4 units PRBC, 1 FFP 1 bag of platelet. Currently on Protonix 40 IV twice daily Continue Zosyn Continue DuoNebs Continue gentle IV hydration LDSSI, FSG, Monitor H&H every 6 hours. Currently n.p.o. Monitor intake output charting Full code DVT prophylaxis: SCDs will suffice. Attestations Medical Necessity Statement*: Patient is to be in hospital for management of GI bleed. Time Spent in Patient Care: Greater than 35 minutes (>than 50% of time spent in counselling and/or direct pt care on unit) . Critical Care Time: The high probability of a clinically significant, sudden or life threatening deterioration of the patient's [] system(s) required my full and direct attention, intervention and personal management. The critical care t branden is as shown. 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
[2022-10-19 17:12] LABS: Hematocrit 27.9 % (42.0-52.0); Hemoglobin 9.4 g/dL (11.7-16.6)
[2022-10-19 17:48] LABS: Glucose Point of Care 175 mg/dL (70-110)
[2022-10-19] MEDS: insulin lispro 100 unit/1 mL SUBCUT (18:00)
[2022-10-19 20:42] LABS: Glucose Point of Care 142 mg/dL (70-110)
[2022-10-19 22:25] LABS: Hematocrit 26.8 % (42.0-52.0); Hemoglobin 8.9 g/dL (11.7-16.6)
[2022-10-20] VITALS (98 sets, daily range): BP systolic 66–137; BP diastolic 39–100; PULSE 91–138; RESP 9–31; TEMP 36.1–37; O2SAT 87–100
[2022-10-20] MEDS: zolpidem 5 mg Tablet 2.5 MG PO (01:10)
[2022-10-20 03:43] LABS: Basophils % 0.2 %; Eosinophils % 0.3 %; Hematocrit 25.1 % (42.0-52.0); Hemoglobin 8.2 g/dL (11.7-16.6); Lymphocytes % 7.7 %; Mean Corpuscular HGB Conc 32.7 g/dL (30.0-36.0); Mean Corpuscular Hemoglobin 30.7 pg (28.0-34.0); Monocytes # 0.6 10^3/uL (0.2-0.9); Monocytes % 4.8 %; Neutrophils # 10.53 10^3/uL (1.8-7.7); Neutrophils % 83.7 %; Nucleated Red Blood Cells % 0 %; Platelet Count 164 10^3/cmm (130-400); Red Blood Count 2.67 10^6/uL (4.1-5.3); Red Cell Distribution Width 16.8 % (12.1-15.1); White Blood Count 12.6 10^3/uL (4.0-10.0)
[2022-10-20 04:04] LABS: Blood Urea Nitrogen 53 mg/dL (8-23); Calcium 7.7 mg/dL (8.5-10.5); Carbon Dioxide 25 mmol/L (22-29); Chloride 106 mmol/L (98-107); Glucose 138 mg/dL (65-115); Osmolality Calculated 303 mOsm/kg (285-295); Sodium 138 mmol/L (136-145)
[2022-10-20] MEDS: piperacillin-tazobactam 3.375 GM in sodium chloride 0.9% (plus) 50 ML IV ×3 (05:00→20:19)
[2022-10-20] MEDS: sodium chloride 0.9% 1,000 ML 50 ML IV (05:01)
[2022-10-20] MEDS: morphine 4 mg/mL SDV 1 mL 2 MG IVP ×2 (07:56→23:03)
[2022-10-20 08:19] LABS: Hematocrit 25.5 % (42.0-52.0); Hemoglobin 8.3 g/dL (11.7-16.6)
[2022-10-20] MEDS: albuterol 2.5 mg/3 mL Neb INHALATION ×4 (08:30→22:30)
[2022-10-20 08:35] LABS: Glucose Point of Care 148 mg/dL (70-110)
--- NOTE | 2022-10-20 08:58 | PM.PN ---
Subjective Subjective: No acute events overnight. Hemodynamically stable. No complaints. Looking forward to oral intake. Vitals/I&O/Wt Last Vital Signs Temp 98.0 F 10/20/22 05:00 Pulse 112 H 10/20/22 08:25 Resp 17 10/20/22 08:25 BP 66/57 10/20/22 06:30 Pulse Ox 96 10/20/22 08:25 O2 Del Method 10/20/22 08:25 O2 Flow Rate 1 10/19/22 17:00 10/19/22 10/20/22 10/20/22 22:59 06:59 14:59 Intake Total 150 / 1041 815 / 1856 Output Total 2200 / 3000 800 / 3800 Balance -2049 Weight last 48 hrs Weight 235 lb Weight 238 lb Weight 238 lb Weight 235 lb Physical Exam Const: COMMON NORMALS: no acute distress and patient oriented x3 GENERAL APPEARANCE: cooperative, comfortable and well developed HENMT: COMMON NORMALS: normocephalic, atraumatic, external ears normal and Normal external nose present HEAD & SCALP: normocephalic and atraumatic NOSE: Normal external nose present EXTERNAL EAR: Yes external ears normal Chest: COMMONS NORMALS: normal inspection of the chest CHEST: Yes Symmetrical chest wall rise Resp: COMMON NORMALS: normal respiratory effort and No retractions EFFORT & INSPECTION: Yes symmetric chest movement and No respiratory distress Cardio: COMMON NORMALS: regular rate RATE: regular rate GI: COMMON NORMALS: Soft to palpation and non-tender PALPATION: Yes Soft to palpation Extremity: COMMON NORMALS: normal to inspection, full ROM and capillary refill normal Neuro: COMMON NORMALS: patient oriented x3, CN's II-XII intact bilaterally, moves all extremities, no focal motor deficits and no sensory deficits noted Psych: COMMON NORMALS: mental status grossly normal, Normal thought process present, cooperative, normal affect and activity/motor behavior normal THOUGHT PROCESS: Normal thought process present Skin: COMMON NORMALS: no rashes or lesions noted GENERAL SKIN EXAM: no rashes or lesions noted Urinary Catheter Management: Ash: Cath Placed During This Visit: no Data 10/20/22 08:11 10/20/22 02:30 Micro: Microbiology 10/19/22 04:16 Blood Culture - Preliminary Blood NEGATIVE TO DATE 10/19/22 04:08 Blood Culture - Preliminary Blood NEGATIVE TO DATE A&P Assessment and plan (1) Acute blood loss anemia: (2) Shock: (3) Acute upper GI bleed: Plan Admitted to ICU with acute hemorrhagic shock due to upper GI bleed (on Eliquis for afib, reversed). S/P emergent upper endoscopy with biopsy, epinephrine injection, and clip application to prepyloric ulcer. Hemodynamically stable at time of evaluation this morning. Start clear liquids, advance diet as tolerated to regular. Continue PPI therapy, recommend protonix 40 mg PO BID x30 days upon discharge. Patient counselled on NSAID avoidance. No activity limitations from surgical perspective. Attestations Medical Necessity Statement*: Patient requires continued hospitalization for ongoing recovery from hypovolemic shock due to acute GI bleed Coding Level of Care Code Acute Joint Terminal Attack Controller for [facility] Diagnoses Acute blood loss anemia D62 Shock R57.9 Acute upper GI bleed K92.2
[2022-10-20] MEDS: pantoprazole 40 mg SDV IVP ×2 (09:37→17:20)
[2022-10-20] MEDS: insulin lispro 100 unit/1 mL SUBCUT ×2 (09:40→12:19)
[2022-10-20] MEDS: oxyCODONE-APAP 5-325 mg Tablet 1 TAB PO ×3 (10:01→21:38)
[2022-10-20 11:19] LABS: Glucose Point of Care 170 mg/dL (70-110)
[2022-10-20 15:12] LABS: Hematocrit 26.4 % (42.0-52.0); Hemoglobin 8.5 g/dL (11.7-16.6)
--- NOTE | 2022-10-20 16:19 | PM.PN ---
Subjective Subjective: Patient was seen and examined this morning, denied any abdominal pain nausea vomiting, H&H so far has been stable, on activity heart rates jumped into 130s-140, but do not sustain for long time, currently in A. fib, at rest usually stays in 110s, on as needed metoprolol IV. Medications: Medication Review Details: Generic Name Dose Route Start Last Admin Trade Name Freq PRN Reason Stop Dose Admin Albuterol Sulfate 2.5 mg 10/19/22 12:00 10/20/22 15:44 Albuterol 2.5 Mg /3 Ml Neb INHALATION 2.5 mg QID.RESPIRATORY S CH Administration Albuterol/Ipratrop ium 3 ml 10/19/22 04:10 10/19/22 09:25 Ipratropium-Albu terol 3 Ml Neb INHALATION 3 ml Q6H PRN Administration SHORTNESS OF MELI TH Piperacillin Sod/T azobactam 50 mls @ 12.5 mls /hr 10/19/22 05:15 10/20/22 12:15 Sod 3.375 gm/ So dium Chloride IV 12.5 mls/hr Q8H JOSÉ MIGUEL Administration Insulin Human Lisp ro 0 unit 10/19/22 18:00 10/20/22 12:19 Insulin Lispro 1 00 Unit/1 Ml SUBCUT 2 unit TIDWM JOSÉ MIGUEL Administration Protocol Morphine Sulfate 2 mg 10/19/22 09:20 10/20/22 07:56 Morphine 4 Mg/Ml Sdv 1 Ml IVP 2 mg Q4H PRN Administration SEVERE PAIN Oxycodone/Acetamin ophen 1 tab 10/20/22 09:45 10/20/22 15:37 Oxycodone-Apap 5 -325 Mg Tablet PO 1 tab Q4H PRN Administration MODERATE PAIN Pantoprazole Sodiu m 40 mg 10/19/22 09:05 10/20/22 09:37 Pantoprazole 40 Mg Sdv IVP 40 mg BID JOSÉ MIGUEL Administration Vitals/I&O/Wt Last Vital Signs Temp 98.6 F 10/20/22 12:15 Pulse 115 H 10/20/22 15:44 Resp 16 10/20/22 15:44 BP 100/76 10/20/22 12:15 Pulse Ox 93 10/20/22 15:44 O2 Del Method 10/20/22 15:44 O2 Flow Rate 1 10/19/22 17:00 10/20/22 10/20/22 10/20/22 06:59 14:59 22:59 Intake Total 815 / 1856 550 / 550 Output Total 800 / 3800 550 / 550 Balance 0 / 0 Weight last 48 hrs Weight 106.594 kg Weight 107.955 kg Weight 107.955 kg Weight 106.594 kg Physical Exam Const: COMMON NORMALS: patient oriented x3 HENMT: COMMON NORMALS: normocephalic and atraumatic HEAD & SCALP: normocephalic and atraumatic Resp: COMMON NORMALS: clear to auscultation bilaterally EFFORT & INSPECTION: Yes symmetric chest movement AUSCULTATION: clear to auscultation bilaterally OTHER: Diminished air entry bilaterally Cardio: COMMON NORMALS: regular rate, regular rhythm, S1 normal heart sound present, S2 normal heart sound present, No gallops present (Cardio), No murmurs present (Cardio), No rub (Cardio) and Peripheral pulses 2+ throughout RATE: regular rate RHYTHM: regular rhythm HEART SOUNDS: S1 normal heart sound present and S2 normal heart sound present PERIPHERAL PULSES: Peripheral pulses 2+ throughout GI: COMMON NORMALS: Normal to inspection, nondistended, normoactive bowel sounds present, Soft to palpation, non-tender, No hepatosplenomegaly present and no masses AUSCULTATION: Yes normoactive bowel sounds PALPATION: Yes Soft to palpation and Yes No hepatosplenomegaly present RECTAL EXAM: Yes deferred Extremity: COMMON NORMALS: no clubbing, cyanosis or edema and no pedal edema Neuro: COMMON NORMALS: patient oriented x3 Urinary Catheter Management: Ash: Cath Placed During This Visit: yes Urethral Indwelling: Yes Reason for Continuing Indwelling Catheter: Accurate Measurement of Urinary Output in Critically Ill Patients Urinary Catheter Date of Insertion: 10/19/22 Urinary Catheter Time of Insertion: 02:00 Data 10/20/22 14:50 10/20/22 02:30 Micro: Microbiology 10/19/22 04:16 Blood Culture - Preliminary Blood NEGATIVE TO DATE 10/19/22 04:08 Blood Culture - Preliminary Blood NEGATIVE TO DATE A&P Assessment and plan (1) Acute upper GI bleed: (2) COPD (chronic obstructive pulmonary disease): (3) Atrial fibrillation with rapid ventricular response: (4) Hypotension: (5) Shock: (6) Dehydration: (7) Acute blood loss anemia: (8) Chronic anticoagulation: (9) Melena: (10) Black tarry stools: Plan 71-year-old male with past medical history of COPD, diabetes COVID, atrial fibrillation on Xarelto presented with chief complaint of black stool started yesterday as well as one episode of hemoptysis, he was having generalized weakness for last few days, he was found to be hypotensive in the ER, subsequent blood work revealed H&H: 6.9/22.Currently patient is being managed for. Assessment Hypovolemic shock secondary to acute blood loss secondary to GI bleed likely secondary to chronic anticoagulation, as well as recently he was taking lots of NSAIDs. UGIB History of atrial fibrillation Disproportionately high BUN: With relatively normal serum creatinine: Points towards GI bleed History of COPD History of diabetes Leukocytosis: Currently empirically on Zosyn: To cover for possible GI translocation: In the setting of hemorrhagic shock. ARTEMIO on CKD: Likely secondary to acute hypotension, secondary to GI bleed Elevated lactic acid: Secondary to acute hypotension Plan: CT abdomen pelvis w con: No significant finding Status post EGD: With epinephrine injection.and clip placement. Severe diffuse gastritis , Prepyloric ulcer without active bleeding. Status post factor Xa recombinant(adenexate alpha ) , status post 4 units PRBC, 1 FFP 1 bag of platelet. Currently on Protonix 40 IV twice daily Continue Zosyn Continue DuoNebs Continue gentle IV hydration LDSSI, FSG, Monitor H&H every 6 hours. Currently on clear liquid diets On metoprolol tartrate 5 mg every 4h IV as needed Continue to hold Xarelto, plan is to hold Xarelto on discharge, repeat H&H in in 1 to 2 weeks. If hemoglobin remains stable, it can be restarted followed by close monitoring for any new bleeding episode. Risk of being off anticoagulation has been explained to the patient. Monitor intake output charting Plan for today: Continue to monitor H&H, continue telemetry monitoring for A. fib, once blood pressure is more stable, will plan to resume , home Cardizem, if not then will have to possibly, start patient on digoxin or amiodarone p.o. to prevent patient going into rvr. Full code DVT prophylaxis: SCDs will suffice. Attestations Medical Necessity Statement*: The high probability of a clinically significant, sudden or life threatening deterioration of the patient's [] system(s) required my full and direct attention, intervention and personal management. The critical care time is as shown. This time is in addition to time spent performing any reported procedures but includes the following: [x] Data and vital sign review and interpretation [x] Patient assessment, examination and intervention [x] Documentation [x] Medication orders and management Time Spent in Patient Care: Greater than 35 minutes (>than 50% of time spent in counselling and/or direct pt care on unit). Critical Care Time: The high probability of a clinically significant, sudden or life threatening deterioration of the patient's [] system(s) required my full and direct attention, intervention and personal management. The critical care time is as shown. This time is in addition to time spent performing any reported procedures but includes the following: [x] Data and vital sign review and interpretation [x] Patient assessment, examination and intervention [x] Documentation [x] Medication orders and management Critical Care Time (min): 30 Coding Level of Care Code Acute Supervisor Brine for [facility] Fwd Exam Detailed Diagnoses Acute upper GI bleed K92.2 COPD (chronic obstructive pulmonary disease) J44.9 Atrial fibrillation with rapid ventricular response I48.91 Hypotension I95.9 Shock R57.9 Dehydration E86.0 Acute blood loss anemia D62 Chronic anticoagulation Z79.01 Melena K92.1 Black tarry stools K92.1
[2022-10-20] MEDS: sodium chloride 0.9% 1,000 ML 75 ML IV (16:27)
[2022-10-20 16:41] LABS: Glucose Point of Care 133 mg/dL (70-110)
[2022-10-20] MEDS: docusate sodium 100 mg Capsule PO (17:20)
[2022-10-20] MEDS: metoprolol tartrate 25 mg Tablet PO (17:20)
--- NOTE | 2022-10-20 18:12 | PC.NURSE ---
SHift Summary: Patient has been up to a chair for about half of the day. Diet slowly advanced from NPO to consistent carb diet, which patient has tolerated well. HGB has shown some improvement, but still low. Stomach is distended but not firm, patient is passing gas and has active bowel sounds, colace ordered. dressing to right foot changed.
[2022-10-20 19:28] LABS: Glucose Point of Care 167 mg/dL (70-110)
[2022-10-20] MEDS: temazepam 15 mg Capsule PO (20:19)
[2022-10-21] VITALS (14 sets, daily range): BP systolic 98–125; BP diastolic 62–72; PULSE 91–125; RESP 16–20; TEMP 36.6–36.9; O2SAT 92–97; BMI 30.2
[2022-10-21 04:30] LABS: Basophils % 0.2 %; Eosinophils # 0.1 10^3/uL (0.0-0.8); Eosinophils % 0.8 %; Hematocrit 29.6 % (42.0-52.0); Hemoglobin 8.9 g/dL (11.7-16.6); Lymphocytes # 1.9 10^3/uL (0.8-4.8); Lymphocytes % 13.8 %; Mean Corpuscular HGB Conc 30.1 g/dL (30.0-36.0); Mean Corpuscular Hemoglobin 30.1 pg (28.0-34.0); Mean Platelet Volume 9.8 fL (7.4-10.4); Monocytes # 0.6 10^3/uL (0.2-0.9); Monocytes % 4.7 %; Neutrophils # 10.37 10^3/uL (1.8-7.7); Neutrophils % 77.7 %; Nucleated Red Blood Cells % 0 %; Platelet Count 175 10^3/cmm (130-400); Red Blood Count 2.96 10^6/uL (4.1-5.3); Red Cell Distribution Width 16.9 % (12.1-15.1); White Blood Count 13.4 10^3/uL (4.0-10.0)
[2022-10-21] MEDS: ipratropium-albuterol 3 mL Neb INHALATION ×2 (04:47→07:15)
[2022-10-21 04:49] LABS: Anion Gap 14.2 (5-19); Blood Urea Nitrogen 33 mg/dL (8-23); Calcium 8.3 mg/dL (8.5-10.5); Carbon Dioxide 22 mmol/L (22-29); Chloride 106 mmol/L (98-107); Glucose 138 mg/dL (65-115); Osmolality Calculated 295 mOsm/kg (285-295); Potassium 4.2 mmol/L (3.5-5.1); Sodium 138 mmol/L (136-145)
[2022-10-21] MEDS: piperacillin-tazobactam 3.375 GM in sodium chloride 0.9% (plus) 50 ML IV ×3 (05:17→21:42)
[2022-10-21] MEDS: sodium chloride 0.9% 1,000 ML 75 ML IV ×2 (05:18→18:12)
[2022-10-21 06:44] LABS: Glucose Point of Care 152 mg/dL (70-110)
[2022-10-21] MEDS: oxyCODONE-APAP 5-325 mg Tablet 1 TAB PO ×3 (08:54→22:19)
[2022-10-21] MEDS: albuterol 2.5 mg/3 mL Neb INHALATION ×4 (10:16→20:09)
[2022-10-21] MEDS: dilTIAZem 30 mg Tablet PO ×3 (11:22→22:16)
[2022-10-21 12:00] LABS: Glucose Point of Care 190 mg/dL (70-110)
[2022-10-21] MEDS: insulin lispro 100 unit/1 mL SUBCUT (13:22)
--- NOTE | 2022-10-21 15:35 | PM.PN ---
Subjective Subjective: Patient was seen and examined this morning, denied any abdominal pain nausea vomiting, H&H so far has been stable.Continue o be in a.fib. Medications: Medication Review Details: Generic Name Dose Route Start Last Admin Trade Name Freq PRN Reason Stop Dose Admin Albuterol Sulfate 2.5 mg 10/19/22 12:00 10/21/22 15:15 Albuterol 2.5 Mg /3 Ml Neb INHALATION 2.5 mg QID.RESPIRATORY S CH Administration Albuterol/Ipratrop ium 3 ml 10/19/22 04:10 10/21/22 07:15 Ipratropium-Albu terol 3 Ml Neb INHALATION 3 ml Q6H PRN Administration SHORTNESS OF MELI TH Diltiazem HCl 30 mg 10/21/22 10:45 10/21/22 11:22 Diltiazem 30 Mg Tablet PO 30 mg Q6H JOSÉ MIGUEL Administration Docusate Sodium 100 mg 10/20/22 18:00 10/21/22 09:14 Docusate Sodium 100 Mg Capsule PO Not Given BID JOSÉ MIGUEL Piperacillin Sod/T azobactam 50 mls @ 12.5 mls /hr 10/19/22 05:15 10/21/22 13:22 Sod 3.375 gm/ So dium Chloride IV 12.5 mls/hr Q8H JOSÉ MIGUEL Administration Sodium Chloride 1,000 mls @ 75 ml s/hr 10/20/22 16:15 10/21/22 05:18 Sodium Chloride 0.9% IV 75 mls/hr .[id number] JOSÉ MIGUEL Administration Insulin Human Lisp ro 0 unit 10/19/22 18:00 10/21/22 13:22 Insulin Lispro 1 00 Unit/1 Ml SUBCUT 4 unit TIDWM JOSÉ MIGUEL Administration Protocol Morphine Sulfate 2 mg 10/19/22 09:20 10/20/22 23:03 Morphine 4 Mg/Ml Sdv 1 Ml IVP 2 mg Q4H PRN Administration SEVERE PAIN Oxycodone/Acetamin ophen 1 tab 10/20/22 09:45 10/21/22 15:30 Oxycodone-Apap 5 -325 Mg Tablet PO 1 tab Q4H PRN Administration MODERATE PAIN Pantoprazole Sodiu m 40 mg 10/19/22 09:05 10/21/22 09:14 Pantoprazole 40 Mg Sdv IVP Not Given BID JOSÉ MIGUEL Temazepam 15 mg 10/20/22 16:30 10/20/22 20:19 Temazepam 15 Mg Capsule PO 15 mg BEDTIME PRN Administration INSOMNIA Vitals/I&O/Wt Last Vital Signs Temp 98.3 F 10/21/22 12:00 Pulse 102 H 10/21/22 15:33 Resp 18 10/21/22 15:30 BP 125/72 10/21/22 15:30 Pulse Ox 97 10/21/22 15:30 O2 Del Method 10/21/22 15:30 O2 Flow Rate 1 10/19/22 17:00 10/21/22 10/21/22 10/21/22 06:59 14:59 22:59 Intake Total 1013.75 / 2212.917 530 / 530 Output Total 1000 / 1875 Balance 13.75 / 337.917 530 / 530 Weight last 48 hrs Weight 106.594 kg Weight 106.594 kg Physical Exam Const: COMMON NORMALS: patient oriented x3 HENMT: COMMON NORMALS: normocephalic and atraumatic HEAD & SCALP: normocephalic and atraumatic Resp: COMMON NORMALS: clear to auscultation bilaterally EFFORT & INSPECTION: Yes symmetric chest movement AUSCULTATION: clear to auscultation bilaterally OTHER: Diminished air entry bilaterally Cardio: COMMON NORMALS: regular rate, regular rhythm, S1 normal heart sound present, S2 normal heart sound present, No gallops present (Cardio), No murmurs present (Cardio), No rub (Cardio) and Peripheral pulses 2+ throughout RATE: regular rate RHYTHM: regular rhythm HEART SOUNDS: S1 normal heart sound present and S2 normal heart sound present PERIPHERAL PULSES: Peripheral pulses 2+ throughout GI: COMMON NORMALS: Normal to inspection, nondistended, normoactive bowel sounds present, Soft to palpation, non-tender, No hepatosplenomegaly present and no masses AUSCULTATION: Yes normoactive bowel sounds PALPATION: Yes Soft to palpation and Yes No hepatosplenomegaly present RECTAL EXAM: Yes deferred Extremity: COMMON NORMALS: no clubbing, cyanosis or edema and no pedal edema Neuro: COMMON NORMALS: patient oriented x3 Urinary Catheter Management: Ash: Cath Placed During This Visit: yes, but has since been removed by the nurse Urethral Indwelling: Yes Reason for Continuing Indwelling Catheter: Other Urinary Catheter Date of Insertion: 10/19/22 Urinary Catheter Time of Insertion: 02:00 Date Urinary Catheter Removed: 10/21/22 Time Urinary Catheter Discontinued: 13:35 Data 10/21/22 03:56 10/21/22 03:56 A&P Assessment and plan (1) Acute upper GI bleed: (2) COPD (chronic obstructive pulmonary disease): (3) Atrial fibrillation with rapid ventricular response: (4) Hypotension: (5) Shock: (6) Dehydration: (7) Acute blood loss anemia: (8) Chronic anticoagulation: (9) Melena: (10) Black tarry stools: Plan 71-year-old male with past medical history of COPD, diabetes COVID, atrial fibrillation on Xarelto presented with chief complaint of black stool started yesterday as well as one episode of hemoptysis, he was having generalized weakness for last few days, he was found to be hypotensive in the ER, subsequent blood work revealed H&H: 6.9/22.Currently patient is being managed for. Assessment Hypovolemic shock secondary to acute blood loss secondary to GI bleed likely secondary to chronic anticoagulation, as well as recently he was taking lots of NSAIDs. UGIB History of atrial fibrillation Disproportionately high BUN: With relatively normal serum creatinine: Points towards GI bleed History of COPD History of diabetes Leukocytosis: Currently empirically on Zosyn: To cover for possible GI translocation: In the setting of hemorrhagic shock. ARTEMIO on CKD: Likely secondary to acute hypotension, secondary to GI bleed Elevated lactic acid: Secondary to acute hypotension Plan: CT abdomen pelvis w con: No significant finding Status post EGD: With epinephrine injection.and clip placement. Severe diffuse gastritis , Prepyloric ulcer without active bleeding. Status post factor Xa recombinant(adenexate alpha ) , status post 4 units PRBC, 1 FFP 1 bag of platelet. Currently on Protonix 40 IV twice daily Continue Zosyn Continue DuoNebs Continue gentle IV hydration LDSSI, FSG, Monitor H&H every 6 hours. Currently on clear liquid diets On metoprolol tartrate 5 mg every 4h IV as needed Continue to hold Xarelto, plan is to hold Xarelto on discharge, repeat H&H in in 1 to 2 weeks. If hemoglobin remains stable, it can be restarted followed by close monitoring for any new bleeding episode. Risk of being off anticoagulation has been explained to the patient. Monitor intake output charting Plan for today: Continue to monitor H&H, continue telemetry monitoring for A. fib, once blood pressure is more stable, will plan to resume , home Cardizem, if not then will have to possibly, start patient on digoxin or amiodarone p.o. to prevent patient going into rvr. Full code DVT prophylaxis: SCDs will suffice. Attestations Medical Necessity Statement*: patient needs to be in hospital fo the management of G/I Bleed Coding Level of Care Code Acute Medical Record Transcriber for Chg Fwd Exam Detailed Diagnoses Acute upper GI bleed K92.2 COPD (chronic obstructive pulmonary disease) J44.9 Atrial fibrillation with rapid ventricular response I48.91 Hypotension I95.9 Shock R57.9 Dehydration E86.0 Acute blood loss anemia D62 Chronic anticoagulation Z79.01 Melena K92.1 Black tarry stools K92.1
[2022-10-21 16:43] LABS: Glucose Point of Care 113 mg/dL (70-110)
[2022-10-21] MEDS: pantoprazole 40 mg SDV IVP (17:27)
[2022-10-21] MEDS: dilTIAZem 60 mg Tablet PO (18:11)
[2022-10-21 20:40] LABS: Glucose Point of Care 187 mg/dL (70-110)
--- NOTE | 2022-10-21 22:20 | PC.NURSE ---
Patient complained of 8/10 pain in left knee. Oxycodone administered.
[2022-10-22] VITALS (12 sets, daily range): BP systolic 96–136; BP diastolic 62–82; PULSE 68–114; RESP 16–20; TEMP 36.6–36.9; O2SAT 94–99
[2022-10-22 00:58] LABS: Glucose Point of Care 136 mg/dL (70-110)
--- NOTE | 2022-10-22 01:14 | ECG_ITS ---
[facility] Test Date: 2022-10-22 Pat Name: Jace Christie Department: Room: 250 Gender: Male Credit Rating Inspector: : 1950 Requested By: Jeramie Chen Order Number: [id number] Frederick MD: Michelle Torres M.D. Measurements Intervals [place] Rate: 100 P: 0 SD: 0 QRS: 17 QRSD: 91 T: 71 QT: 318 QTc: 411 Interpretive Statements ATRIAL FIBRILLATION WITH RAPID VENTRICULAR RESPONSE MINIMAL ST DEPRESSION [0.025+ mV ST DEPRESSION] ABNORMAL RHYTHM ECG Compared to ECG 10/18/2022 22:12:30 ST (T wave) deviation now present T-wave abnormality no longer present Electronically Signed On 10-22-2022 20:02:07 LOCAL DRIVER by Michelle Torres M.D. [email or web address].Budding Biologistg. v. (sonny) montgomery va medical centerDivitelmiami [id number]
[2022-10-22] MEDS: morphine 4 mg/mL SDV 1 mL 2 MG IVP (01:23)
[2022-10-22 01:51] LABS: Hematocrit 25.7 % (42.0-52.0); Hemoglobin 8.2 g/dL (11.7-16.6)
[2022-10-22] MEDS: lidocaine 2% viscous 15 ML, aluminum-mag hydrox-simethicon 30 ML, sucralfate oral liq 1 GM PO (02:04)
[2022-10-22 02:08] LABS: D Dimer 1.42 ug/mIFEU (0-0.59)
[2022-10-22 02:15] LABS: Blood Urea Nitrogen 24 mg/dL (8-23); Calcium 8.1 mg/dL (8.5-10.5); Carbon Dioxide 23 mmol/L (22-29); Chloride 107 mmol/L (98-107); Creatinine Clr Calc Pharmacy 86.8488; Glucose 123 mg/dL (65-115); Osmolality Calculated 293 mOsm/kg (285-295); Sodium 139 mmol/L (136-145)
[2022-10-22 02:29] LABS: Troponin(5th) Baseline 51 ng/L (0-15)
[2022-10-22 04:02] LABS: Basophils % 0.2 %; Eosinophils # 0.1 10^3/uL (0.0-0.8); Eosinophils % 1.2 %; Hematocrit 26.2 % (42.0-52.0); Hemoglobin 8.3 g/dL (11.7-16.6); Lymphocytes # 1.7 10^3/uL (0.8-4.8); Lymphocytes % 15.8 %; Mean Corpuscular HGB Conc 31.7 g/dL (30.0-36.0); Mean Corpuscular Hemoglobin 30.4 pg (28.0-34.0); Mean Platelet Volume 9.9 fL (7.4-10.4); Monocytes # 0.8 10^3/uL (0.2-0.9); Monocytes % 7.2 %; Neutrophils # 7.89 10^3/uL (1.8-7.7); Neutrophils % 73.1 %; Nucleated Red Blood Cells % 0 %; Platelet Count 175 10^3/cmm (130-400); Red Blood Count 2.73 10^6/uL (4.1-5.3); Red Cell Distribution Width 16.7 % (12.1-15.1); White Blood Count 10.8 10^3/uL (4.0-10.0)
[2022-10-22] MEDS: dilTIAZem 30 mg Tablet PO ×2 (04:33→10:07)
[2022-10-22] MEDS: piperacillin-tazobactam 3.375 GM in sodium chloride 0.9% (plus) 50 ML IV (04:33)
[2022-10-22] MEDS: oxyCODONE-APAP 5-325 mg Tablet 1 TAB PO ×2 (04:35→11:48)
[2022-10-22] MEDS: ipratropium-albuterol 3 mL Neb INHALATION ×2 (05:01→11:18)
--- NOTE | 2022-10-22 05:05 | ECG_ITS ---
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 Measurements Intervals [place] Rate: 102 P: 0 RI: 0 QRS: 7 QRSD: 89 T: 54 QT: 340 QTc: 444 Interpretive Statements ATRIAL FIBRILLATION WITH RAPID VENTRICULAR RESPONSE ABNORMAL RHYTHM ECG Compared to ECG 10/22/2022 01:22:52 ST (T wave) deviation no longer present Electronically Signed On 10-22-2022 20:22:45 PEDIATRIC HOSPITALIST by Michelle Torres M.D. [id number]
[2022-10-22 05:27] LABS: Anion Gap 13.9 (5-19); Blood Urea Nitrogen 22 mg/dL (8-23); Calcium 8.8 mg/dL (8.5-10.5); Carbon Dioxide 22 mmol/L (22-29); Chloride 105 mmol/L (98-107); Glucose 134 mg/dL (65-115); Osmolality Calculated 289 mOsm/kg (285-295); Potassium 3.9 mmol/L (3.5-5.1); Sodium 137 mmol/L (136-145)
[2022-10-22 06:33] LABS: Glucose Point of Care 154 mg/dL (70-110)
--- NOTE | 2022-10-22 07:09 | PC.NURSE ---
Dr. Chen and Dr. Alicea notified of d-dimer result at this time.
--- NOTE | 2022-10-22 07:19 | ECG_ITS ---
[facility] Test Date: 2022-10-22 Pat Name: Jace Christie Department: Room: 250 Gender: Male Chiller Technician: : 1950 Requested By: Anjali Alicea Order Number: [id number] Otoniel MD: Michelle Torres M.D. Measurements Intervals [place] Rate: 104 P: 0 MT: 0 QRS: 60 QRSD: 86 T: 39 QT: 327 QTc: 431 Interpretive Statements ATRIAL FIBRILLATION WITH RAPID VENTRICULAR RESPONSE WITH ABERRANT CONDUCTION OR VENTRICULAR PREMATURE COMPLEXES ABNORMAL RHYTHM ECG Compared to ECG 10/22/2022 05:05:45 Ventricular premature complex(es) now present Aberrant conduction of supraventricular beat(s) now present Electronically Signed On 10-22-2022 20:22:59 SUSTAINABILITY PURCHASING AGENT by Michelle Torres M.D. [id number]
[2022-10-22] MEDS: albuterol 2.5 mg/3 mL Neb INHALATION (07:26)
[2022-10-22] MEDS: insulin lispro 100 unit/1 mL SUBCUT (08:36)
[2022-10-22] MEDS: sodium chloride 0.9% 1,000 ML 75 ML IV (08:37)
[2022-10-22] MEDS: pantoprazole 40 mg SDV IVP (08:37)
[2022-10-22 09:15] LABS: Troponin 5 6HR 51.72 ng/L (0-15); Troponin 5 6HR Delta 0.72 ng/L (0-12)
--- NOTE | 2022-10-22 10:49 | PC.SOCIAL ---
IMM update Imm updated with patient at bedside. Copy of page 2 provided. Patient verbalized understanding. Copy in chart initialed, dated and timed.
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
[2022-10-22] MEDS: dilTIAZem 60 mg Tablet 120 MG PO (11:05)
[2022-10-22 12:03] LABS: Glucose Point of Care 206 mg/dL (70-110)
--- NOTE | 2022-10-22 12:32 | PC.NURSE ---
Discharge Note Patient discharged to home via private vehicle accompanied by . Discharge instructions reviewed with patient and/or contact center representative. Mobile pharmacy medications and/or prescriptions provided. Belongings/home medications returned.
== END 2022-10-22 12:32 | disposition home or self-care (01) | DRG 377 ==
LOC: ER 10-19 00:06 → ICU 10-19 01:12 → MEDSURG 10-20 23:51
PROVIDERS: Surgery; Admitting Provider Internal Medicine; Emergency Provider Emergency Medicine; Visit Provider Internal Medicine
PROC: 0DJ08ZZ Inspection of Upper Intestinal Tract, Via Natural or Artificial Opening Endoscopic (ICD-10-PCS; CPT 43235; principal; 2022-10-19 02:30)
DX: K25.4 Chronic or unspecified gastric ulcer with hemorrhage (principal); R57.1 Hypovolemic shock; D62 Acute posthemorrhagic anemia; N17.9 Acute kidney failure, unspecified; K29.71 Gastritis, unspecified, with bleeding; J44.9 Chronic obstructive pulmonary disease, unspecified; I48.91 Unspecified atrial fibrillation; I95.9 Hypotension, unspecified; E86.0 Dehydration; Z86.16 Personal history of COVID-19; T45.515A Adverse effect of anticoagulants, initial encounter; T39.395A Adverse effect of other nonsteroidal anti-inflammatory drugs [NSAID], initial encounter; Z79.52 Long term (current) use of systemic steroids; Z79.891 Long term (current) use of opiate analgesic; Z79.51 Long term (current) use of inhaled steroids; F17.200 Nicotine dependence, unspecified, uncomplicated; Z89.431 Acquired absence of right foot
CPT/HCPCS: 12345; 36415; 36416; 36430; 36556; 36592; 51702; 71045; 74177; 80048; 80053; 81003; 82962; 83605; 83735; 84484; 85007; 85014; 85018; 85025; 85378; 85610; 85730; 86705; 86706; 86709; 86803; 86850; 86900; 86920; 86927; 87040; 87340; 87806; 88305; 88342; 93005; 93306; 94640; 94664; 96365; 96366; 96367; 96372; 96375; 99291; 99292; C1751; C9113; J0171; J0330; J1815; J2270; J2370; J2543; J2704; J3010; J7030; J7050; J7169; J7613; P9016; P9017; Q9967

== ENCOUNTER → 2022-11-10 13:47 | Outpatient (BNVA) | payer OTHER, SELFPAY | PROVIDERS: Visit Provider Podiatrist Foot & Ankle Surgery | DX: E11.621 Type 2 diabetes mellitus with foot ulcer (principal); L97.512 Non-pressure chronic ulcer of other part of right foot with fat layer exposed; Z89.431 Acquired absence of right foot; Z79.84 Long term (current) use of oral hypoglycemic drugs | CPT/HCPCS: 73630; 99214 ==

== ENCOUNTER → 2022-12-06 14:57 | Outpatient (BNVA) | payer OTHER, SELFPAY | PROVIDERS: Visit Provider Podiatrist Foot & Ankle Surgery | DX: E11.621 Type 2 diabetes mellitus with foot ulcer (principal); L97.512 Non-pressure chronic ulcer of other part of right foot with fat layer exposed; Z89.431 Acquired absence of right foot; Z79.84 Long term (current) use of oral hypoglycemic drugs | CPT/HCPCS: 99214 ==

== ENCOUNTER 2023-01-12 08:33 | Emergency (ER) | payer OTHER, SELFPAY ==
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
--- NOTE | 2023-01-12 08:39 | ECG_ITS ---
[facility] Test Date: 2023-01-12 Pat Name: Jace Christie Department: Room: Gender: Male [employer]: : [id number] Requested By: Jamie Daniel Order Number: [id number] Otoniel MD: Shilo Bagley M.D. Measurements Intervals [place] Rate: 92 P: 0 NH: 0 QRS: 4 QRSD: 87 T: 19 QT: 332 QTc: 411 Interpretive Statements ATRIAL FIBRILLATION LOW QRS VOLTAGE IN PRECORDIAL LEADS [QRS DEFLECTION < 1.0 mV IN CHEST LEADS] ABNORMAL RHYTHM ECG Compared to ECG 10/22/2022 07:24:55 Low QRS voltage now present Aberrant conduction of supraventricular beat(s) no longer present Ventricular premature complex(es) no longer present Electronically Signed On 01-12-2023 15:53:30 CDT by Shilo Bagley M.D. [id number]
[2023-01-12] MEDS: HYDROcodone-acetaminophen 5-325 mg Tablet 2 TAB PO (09:05)
[2023-01-12 09:07] VITALS: BP 106/76; PULSE 74; RESP 18; TEMP 36.6; O2SAT 94
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
[2023-01-12 09:15] LABS: Basophils % 0.2 %; Eosinophils % 0.2 %; Hematocrit 39.5 % (42.0-52.0); Hemoglobin 11.6 g/dL (11.7-16.6); Lymphocytes # 0.9 10^3/uL (0.8-4.8); Lymphocytes % 6.5 %; Mean Corpuscular HGB Conc 29.4 g/dL (30.0-36.0); Mean Corpuscular Hemoglobin 25.2 pg (28.0-34.0); Mean Corpuscular Volume 85.7 fl (80-94); Mean Platelet Volume 9.2 fL (7.4-10.4); Monocytes # 0.5 10^3/uL (0.2-0.9); Monocytes % 3.8 %; Nucleated Red Blood Cells % 0 %; Platelet Count 403 10^3/cmm (130-400); Red Blood Count 4.61 10^6/uL (4.1-5.3); Red Cell Distribution Width 17.7 % (12.1-15.1)
--- NOTE | 2023-01-12 09:17 | PC.NURSE ---
PT PLACED ON CONTINUOUS SPO2, NIBP, AND CM.
[2023-01-12 09:44] LABS: Alanine Aminotransferase 19 U/L (0-41); Albumin Level 3.7 g/dL (3.5-5.2); Alkaline Phosphatase 138 U/L (40-130); Anion Gap 20.3 (5-19); Aspartate Amino Transferase 11 U/L (0-40); Blood Urea Nitrogen 42 mg/dL (8-23); Calcium 8.7 mg/dL (8.5-10.5); Carbon Dioxide 24 mmol/L (22-29); Chloride 99 mmol/L (98-107); Globulin 2.6 g/dL (1.3-4.6); Glucose 224 mg/dL (65-115); NT Pro B Type Natriuretic Pept 1817 pg/mL (0-125); Osmolality Calculated 305 mOsm/kg (285-295); Potassium 4.3 mmol/L (3.5-5.1); Sodium 139 mmol/L (136-145); Total Bilirubin 0.2 mg/dL (0.15-1.2); Total Protein 6.3 g/dL (6.6-8.7)
[2023-01-12 09:55] LABS: Slide Review Slide Review Perform
[2023-01-12 09:56] LABS: Neutrophils % 89.3 %
[2023-01-12 09:57] LABS: Neutrophils # 12.46 10^3/uL (1.8-7.7)
[2023-01-12 10:30] VITALS: BP 117/70; PULSE 97; O2SAT 95
[2023-01-12] MEDS: FUROsemide 10 mg/mL SDV 4mL 40 MG IVP (11:00)
[2023-01-12 11:22] LABS: Add Urine Microscopic? NO; Charge for UA Resulting for Rev
[2023-01-12 11:30] VITALS: BP 130/96; PULSE 102; O2SAT 91
[2023-01-12 11:32] LABS: Bilirubin Urine Neg (Negative); Blood Urine Neg (Negative); Glucose Urine UA Norm (Normal); Ketones Urine 1+ (Negative); Leukocyte Esterase Urine Negative (Negative); Nitrate Urine Negative (Negative); Protein Urine Neg (Negative); Urine Appearance Clear (CLEAR); Urine Color Yellow (Yellow); Urobilinogen Urine Norm (Negative); pH Urine 6.5 (5-7)
[2023-01-12 12:00] VITALS: BP 124/88; PULSE 97
--- NOTE | 2023-01-23 13:53 | DCPLANNER ---
supply chain design manager called patient due to no primary care physician - patient stated that he sees Dr. Deleon [facility].
== END 2023-01-12 12:27 | disposition home or self-care (01) ==
PROVIDERS: Emergency Provider Family Medicine
DX: S39.012A Strain of muscle, fascia and tendon of lower back, initial encounter (principal); R60.0 Localized edema; Z79.84 Long term (current) use of oral hypoglycemic drugs; J44.9 Chronic obstructive pulmonary disease, unspecified; E11.9 Type 2 diabetes mellitus without complications; F17.210 Nicotine dependence, cigarettes, uncomplicated; X58.XXXA Exposure to other specified factors, initial encounter
CPT/HCPCS: 71045; 80053; 81003; 83880; 85025; 93005; 96374; 99285; J1940

== ENCOUNTER → 2023-03-20 10:15 | Outpatient (BNVA) | payer OTHER, SELFPAY | PROVIDERS: Visit Provider Internal Medicine Cardiovascular Disease | DX: I48.91 Unspecified atrial fibrillation (principal); I50.9 Heart failure, unspecified; J44.9 Chronic obstructive pulmonary disease, unspecified; E11.9 Type 2 diabetes mellitus without complications; F17.210 Nicotine dependence, cigarettes, uncomplicated; R94.31 Abnormal electrocardiogram [ECG] [EKG] | CPT/HCPCS: 93005; 99204 ==

== ENCOUNTER → 2023-04-02 08:55 | Outpatient (BNVA) | payer OTHER, SELFPAY | PROVIDERS: Visit Provider Anesthesiology Pain Medicine | DX: M51.16 Intervertebral disc disorders with radiculopathy, lumbar region (principal); M47.816 Spondylosis without myelopathy or radiculopathy, lumbar region; M25.551 Pain in right hip; M25.552 Pain in left hip; J44.9 Chronic obstructive pulmonary disease, unspecified; E11.42 Type 2 diabetes mellitus with diabetic polyneuropathy | CPT/HCPCS: 99205 ==

== ENCOUNTER 2023-04-24 10:41 | Outpatient (CLI) | payer OTHER, SELFPAY ==
--- NOTE | 2023-04-24 11:00 | CTR_ITS ---
PROCEDURE INFORMATION: Exam: CT Lumbar Spine Without Contrast Exam date and time: 04/24/2023 11:04 AM Age: 72 years old Clinical indication: Low back pain and pain into right upper leg x 2 months; Additional info: M54.16 - radiculopathy, lumbar region. Prior surgery; Surgery date: 6+ months; Surgery type: Appy; TECHNIQUE: Imaging protocol: Computed tomography of the lumbar spine without contrast. Radiation optimization: All CT scans at this facility use at least one of these dose optimization techniques: automated exposure control; mA and/or kV adjustment per patient size (includes targeted exams where dose is matched to clinical indication); or iterative reconstruction. REPORTING DATA: Count of CT and Cardiac NM exams in prior 12 months: This patient has received 2 known CTs and 0 known cardiac nuclear medicine studies in the 12 months prior to the current study. COMPARISON: CT abdomen pelvis w con* [id number] 10/19/2022 11:04 AM RADIATION DOSE METRICS: Total DLP (mGy-cm): 546.45 FINDINGS: Bones/joints: Compression fracture in the right aspect of the upper endplate of L1 is new since 10/19/2022 with focal mild decrease in height of L1 vertebral body on the right side with no anterior wedging or retropulsion. Compression fracture along the left aspect of the inferior endplate of T12 new since 10/19/2022 with mild vacuum phenomenon under the broken lower endplate with moderate decrease in height of vertebral body on the left side with anterior wedging with no retropulsion. There is stable minimal grade 1 anterolisthesis of L5. There is stable mild scoliosis convex to the left centered at L3 level with grade 1 right lateral listhesis of L2. T12-L1: Disc height is increased due to collapse of adjacent endplates. No disc protrusion. No central canal or foraminal stenosis. L1-L2: Disc height is severely decreased particularly on the left side with vacuum phenomenon. Diffuse disc bulge is causing stable mild spinal stenosis. No foraminal stenosis. L2-L3: Disc height is severely decreased with some vacuum phenomenon. Stable diffuse marginal disc osteophyte complex causing mild spinal stenosis. Stable mild hypertrophy of the right facet. Stable mild bilateral foraminal stenosis. L3-L4: Disc height is moderately decreased on the left side and severely decreased on the right side with vacuum phenomenon. Stable diffuse disc bulge causing moderate spinal stenosis. Stable right central calcified caudal disc extrusion obliterating the right lateral recess and causing at least moderate spinal stenosis at L4 level. Stable moderate bilateral foraminal stenosis more prominent on the right side. L4-L5: Disc height is normal. No disc protrusion. Mild hypertrophy of facet joints. No central canal stenosis. Stable mild bilateral foraminal stenosis. L5-S1: Disc height is normal. The disc is uncovered due to L5 anterolisthesis with no focal disc protrusion. No central canal stenosis. stable moderate right and moderate to severe left facet hypertrophy contributing to mild left foraminal stenosis. No significant right foraminal stenosis. Soft tissues: Unremarkable. CT/CT lumbar spine wo con* [id number] IMPRESSION: Mild compression fractures in T12 and L1 with no retropulsion or cord compression are new since 10/19/2022, probably subacute or early chronic. Persistent calcified caudal disc extrusion of L3-L4 disc is causing stable at least moderate spinal stenosis at L4 level not significantly changed since 10/19/2022.
== END 2023-04-24 10:42 | disposition home or self-care (01) ==
PROVIDERS: PCP Nurse Practitioner; Visit Provider Anesthesiology Pain Medicine
DX: M51.16 Intervertebral disc disorders with radiculopathy, lumbar region (principal); M48.061 Spinal stenosis, lumbar region without neurogenic claudication; S22.088A Other fracture of T11-T12 vertebra, initial encounter for closed fracture; S32.018A Other fracture of first lumbar vertebra, initial encounter for closed fracture; X58.XXXA Exposure to other specified factors, initial encounter
CPT/HCPCS: 72131

== ENCOUNTER → 2023-04-26 09:47 | Outpatient (BNVA) | payer OTHER, SELFPAY | PROVIDERS: PCP Nurse Practitioner; Visit Provider Internal Medicine Cardiovascular Disease | DX: I48.91 Unspecified atrial fibrillation (principal); I50.9 Heart failure, unspecified | CPT/HCPCS: 83735; 83880 ==

== ENCOUNTER → 2023-05-02 10:03 | Outpatient (BNVA) | payer OTHER, SELFPAY | PROVIDERS: PCP Nurse Practitioner; Visit Provider Internal Medicine Cardiovascular Disease | DX: M51.16 Intervertebral disc disorders with radiculopathy, lumbar region (principal); M47.816 Spondylosis without myelopathy or radiculopathy, lumbar region; E11.42 Type 2 diabetes mellitus with diabetic polyneuropathy; J44.9 Chronic obstructive pulmonary disease, unspecified; I50.9 Heart failure, unspecified; I48.91 Unspecified atrial fibrillation; F17.210 Nicotine dependence, cigarettes, uncomplicated; Z79.01 Long term (current) use of anticoagulants; Z79.84 Long term (current) use of oral hypoglycemic drugs | CPT/HCPCS: 99214; 99215 ==

== ENCOUNTER 2023-05-10 13:29 | Outpatient (CLI) | payer OTHER, SELFPAY ==
--- NOTE | 2023-05-10 13:45 | USCV_ITS ---
Jace Christie Age: 72 Gender: M : 1950 Exam Date: 05/10/2023 13:59 Ordering Phys: Tiffany Butler MD ([email or web address]) Technologist: Kendrick Johnson Exam Location: [facility] [place] Indication: shortness of breath BP: 100 / 60 HR: 89 Rhythm: Sinus Technical Quality: Adequate MEASUREMENTS (Male / Female) Normal Values 2D ECHO LV Ejection Fraction MOD 2C 66.6 % LV Ejection Fraction 2C AL 67.6 % LA Diameter 3.7 cm LA Width 3.3 cm LA Height 5.3 cm RA Width 3.3 cm RA Height 6.2 cm Aorta at Sinotubular Diameter 2.8 cm IVC Diameter 1.7 cm M-MODE Aortic Annulus Diameter 3.8 cm LA Ao Ratio MM 0.9 MV E Point Septal Separation 0.6 cm DOPPLER Right Atrial Pressure 3.0 mmHg FINDINGS Left Ventricle Normal left ventricular size, systolic function and wall thickness, with no regional wall motion abnormalities. Left ventricular ejection fraction is estimated at 60 %. Abnormal septal motion consistent with conduction abnormality. Right Ventricle Normal right ventricular size and systolic function. Right Atrium Upper normal right atrial size. Left Atrium Normal left atrial size. Mitral Valve Structurally normal mitral valve. Aortic Valve Aortic valve not well visualized. Tricuspid Valve Structurally normal tricuspid valve. Pulmonic Valve Pulmonic valve not well visualized. Pericardium No pericardial effusion. Aorta Normal size aortic root and mildly dilated proximal ascending aorta measured at 38 mm. IVC Normal IVC dimension with >50% respiratory change of the inferior vena cava. CONCLUSIONS 1. Normal left ventricular size, systolic function and wall thickness, with no regional wall motion abnormalities. Left ventricular ejection fraction is estimated at 60 %. 2. No significant change when compared to study dated 10/19/2022. Tiffany Butler MD (Electronically Signed) Final Date: 14 May 2023 16:50 S
== END 2023-05-10 13:30 | disposition home or self-care (01) ==
LOC: RAD 13:32
PROVIDERS: PCP Nurse Practitioner; Visit Provider Internal Medicine Cardiovascular Disease
DX: R06.02 Shortness of breath (principal)
CPT/HCPCS: 93308

== ENCOUNTER 2023-05-14 11:31 | Observation (INO) | payer OTHER, SELFPAY ==
[2023-05-14] VITALS (10 sets, daily range): BP systolic 99–127; BP diastolic 61–73; PULSE 62–92; RESP 14–27; TEMP 36.5–36.8; O2SAT 90–99; BMI 20.5
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
--- NOTE | 2023-05-14 11:53 | ECG_ITS ---
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 Measurements Intervals Malott Rate: 79 P: 0 MS: 0 QRS: -26 QRSD: 110 T: 68 QT: 312 QTc: 358 Interpretive Statements ATRIAL FIBRILLATION BORDERLINE LEFT AXIS DEVIATION [QRS AXIS < -20] NONSPECIFIC T-WAVE ABNORMALITY ABNORMAL RHYTHM ECG Compared to ECG 03/20/2023 10:18:25 T-wave abnormality now present Electronically Signed On 05-14-2023 16:13:09 CDT by Shilo Bagley M.D. [email or web address] SolutionsSwipeClockmer[facility].[employer]/store/[id number]
[2023-05-14 11:57] LABS: Basophils # 0.1 10^3/uL (0.0-0.1); Basophils % 0.7 %; Eosinophils # 0.5 10^3/uL (0.0-0.8); Eosinophils % 4.6 %; Hematocrit 35.9 % (42.0-52.0); Hemoglobin 11.8 g/dL (11.7-16.6); Lymphocytes # 1.5 10^3/uL (0.8-4.8); Lymphocytes % 15.2 %; Mean Corpuscular HGB Conc 32.9 g/dL (30.0-36.0); Mean Corpuscular Hemoglobin 26.1 pg (28.0-34.0); Mean Corpuscular Volume 79.4 fl (80-94); Mean Platelet Volume 10.9 fL (7.4-10.4); Monocytes # 0.6 10^3/uL (0.2-0.9); Monocytes % 5.6 %; Neutrophils # 7.34 10^3/uL (1.8-7.7); Neutrophils % 73.4 %; Nucleated Red Blood Cells % 0 %; Platelet Count 350 10^3/cmm (130-400); Red Blood Count 4.52 10^6/uL (4.1-5.3); Red Cell Distribution Width 14.4 % (12.1-15.1)
--- NOTE | 2023-05-14 11:58 | PC.PHAR ---
faxed [place] for med list
--- NOTE | 2023-05-14 12:17 | W.ED.CHESTPA ---
HPI - Chest Pain General: Chief Complaint: Chest Pain Stated Complaint: sudden onset chest pain Time Seen by Provider: 05/14/23 11:38 History of Present Illness: Patient presents to the ER with sudden onset sharp stabbing left-sided chest pain that sharp pain down to his fingertips and all the way to his toes. This pain lasted only a few minutes. Patient says he is never had this pain before. Patient does see cardiology and has a history of A-fib. Patient is on O2 at night. Patient was given 325 mg of aspirin per EMS. Patient is pain-free as of currently. Patient is currently taking Eliquis. Review of Systems General: Reports: 10 or more systems reviewed and unremarkable except in HPI and below PFSH ED PFSH: Medical History Acute blood loss anemia Acute upper GI bleed Atrial fibrillation with rapid ventricular response Black tarry stools Chronic anticoagulation COPD (chronic obstructive pulmonary disease) COPD exacerbation COVID Dehiscence of amputation stump of right lower extremity Dehydration Diabetes mellitus Diabetic peripheral neuropathy associated with type 2 diabetes mellitus History of amputation of great toe Hyperglycemia Hypotension Hypoxemia Melena Non-pressure 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 Shock Surgical History S/P foot surgery, right 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 Family History Denies family history of Cancer Social History Smoking and tobacco status: current every day smoker cigarettes Packs smoked per day: 0.5 [ Other cigarette details: Smoking off and on] Physical Exam Const: COMMON NORMALS: no acute distress, average body habitus, patient oriented x3, no limitations, alert and well nourished HENMT: COMMON NORMALS: normocephalic, hearing grossly normal bilaterally, external ears normal, Normal external nose present and moist oral mucous membranes HEAD & SCALP: normocephalic NOSE: Normal external nose present EXTERNAL EAR: Yes external ears normal Eye: COMMON NORMALS: Equal, round and reactive pupils present, EOMs intact bilaterally, conjunctivae normal and no scleral icterus CONJUNCTIVA: Yes conjunctivae normal PUPIL: Yes Equal, round and reactive pupils present Neck/C-Spine: COMMON NORMALS: full ROM, no lymphadenopathy, supple, no meningeal signs and no JVD Chest: COMMONS NORMALS: normal inspection of the chest and normal palpation of entire chest wall Resp: COMMON NORMALS: normal respiratory effort, No retractions, No use of accessory muscles and clear to auscultation bilaterally AUSCULTATION: clear to auscultation bilaterally Cardio: COMMON NORMALS: no JVD, regular rate, regular rhythm, S1 normal heart sound present, S2 normal heart sound present, No gallops present (Cardio), No clicks present (Cardio), No murmurs present (Cardio) and No rub (Cardio) RATE: regular rate RHYTHM: regular rhythm HEART SOUNDS: S1 normal heart sound present and S2 normal heart sound present GI: COMMON NORMALS: Normal to inspection, nondistended, normoactive bowel sounds present, Soft to palpation, non-tender, No hepatosplenomegaly present and no masses PALPATION: Yes Soft to palpation and Yes No hepatosplenomegaly present Neuro: COMMON NORMALS: patient oriented x3 SENSORIUM/ORIENTATION: Yes alert MENINGEAL SIGNS: Yes no meningeal signs Course Vital Signs: Vital signs: Vital Signs Temperature 98.2 F 05/14/23 11:40 Pulse Rate 86 05/14/23 14:05 Respiratory Rate 27 H 05/14/23 14:05 Blood Pressure 119/73 05/14/23 14:05 Pulse Oximetry 96 05/14/23 14:05 Oxygen Delivery Me thod Room Air 05/14/23 13:59 MDM - Chest Pain Medical Decision Making Patient presents to the ER with complaints of sudden onset stabbing left chest pain that radiated down to his fingers and his toes on his left side. This all lasted a couple minutes. Patient does have a history of A-fib and is currently on Eliquis, patient is currently pain-free at this moment. Lab work was obtained as well as chest x-ray and serial EKGs. Troponin was elevated at 97 for his baseline and 89 first 2-hour troponin. Patient had significant hypokalemia with a potassium of 2.8. Patient's BUN/creatinine was slightly elevated at 37 and 1.3. Patient will be admitted to observation Dr. Campos is accepted patient for further evaluation and treatment. Differential Diagnosis Unlikely acute massive pulmonary embolism, acute respiratory failure, acute myocardial infarction, cardiac arrest or sudden cardiac Medical Records I reviewed the patient's medical records. Lab Data I reviewed the patient's lab results. 05/14/23 11:30 05/14/23 11:30 Radiology Impressions Chest X-Ray 05/14/23 11:38 IMPRESSION: Nonacute findings. Laboratory Results WBC 10.0 10^3/uL (4.0-10.0) 05/14/23 11:30 RBC 4.52 10^6/uL (4.1-5.3) 05/14/23 11:30 Hgb 11.8 g/dL (11.7-16.6) 05/14/23 11:30 Hct 35.9 % (42.0-52.0) L 05/14/23 11:30 MCV 79.4 fl (80-94) L 05/14/23 11:30 MCH 26.1 pg (28.0-34.0) L 05/14/23 11:30 MCHC 32.9 g/dL (30.0-36.0) 05/14/23 11:30 RDW 14.4 % (12.1-15.1) 05/14/23 11:30 Plt Count 350 10^3/cmm (130-400) 05/14/23 11:30 MPV 10.9 fL (7.4-10.4) H 05/14/23 11:30 Neut % (Auto) 73.4 % 05/14/23 11:30 Lymph % (Auto) 15.2 % 05/14/23 11:30 [place] % (Auto) 5.6 % 05/14/23 11:30 Eos % (Auto) 4.6 % 05/14/23 11:30 Baso % (Auto) 0.7 % 05/14/23 11:30 Neut # (Auto) 7.34 10^3/uL (1.8-7.7) 05/14/23 11:30 Lymph # (Auto) 1.5 10^3/uL (0.8-4.8) 05/14/23 11:30 [place] # (Auto) 0.6 10^3/uL (0.2-0.9) 05/14/23 11:30 Eos # (Auto) 0.5 10^3/uL (0.0-0.8) 05/14/23 11:30 Baso # (Auto) 0.1 10^3/uL (0.0-0.1) 05/14/23 11:30 Nucleated RBC % (auto) 0 % 05/14/23 11:30 Nucleated RBCs # 0.0 /100WBC 05/14/23 11:30 PT 15.00 SECONDS (12.1-14.9) H 05/14/23 11:52 INR 1.14 (0.8-1.2) 05/14/23 11:52 Sodium 129 mmol/L (136-145) L 05/14/23 11:30 Potassium 2.8 mmol/L (3.5-5.1) L* 05/14/23 11:30 Chloride 86 mmol/L (98-107) L 05/14/23 11:30 Carbon Dioxide 28 mmol/L (22-29) 05/14/23 11:30 Anion Gap 17.8 (5-19) 05/14/23 11:30 BUN 37 mg/dL (8-23) H 05/14/23 11:30 Creatinine 1.3 mg/dL (0.7-1.2) H 05/14/23 11:30 GFR Calculation Not Reportable 05/14/23 11:30 Glucose 185 mg/dL (65-115) H 05/14/23 11:30 Calculated Osmolality 281 mOsm/kg (285-295) L 05/14/23 11:30 Calcium 9.5 mg/dL (8.5-10.5) 05/14/23 11:30 Magnesium 2.4 mg/dL (1.7-2.3) H 05/14/23 11:30 Total Bilirubin 0.3 mg/dL (0.15-1.2) 05/14/23 11:30 AST 11 U/L (0-40) 05/14/23 11:30 ALT 7 U/L (0-41) 05/14/23 11:30 Alkaline Phosphatase 117 U/L (40-130) 05/14/23 11:30 Troponin T Baseline 97 ng/L (0-15) H 05/14/23 11:30 Troponin T 120 Minute 89.12 ng/L (0-15) H 05/14/23 13:49 Delta Troponin T -7.88 ABS# (0-10) L 05/14/23 13:49 NT-Pro-B Natriuret Pep 477 pg/mL (0-125) H 05/14/23 11:30 Total Protein 6.0 g/dL (6.6-8.7) L 05/14/23 11:30 Albumin 4.0 g/dL (3.5-5.2) 05/14/23 11:30 Globulin 2.0 g/dL (1.3-4.6) 05/14/23 11:30 Urine Color Straw (Yellow) 05/14/23 12:45 Urine Appearance Clear (CLEAR) 05/14/23 12:45 Urine pH 7 (5-7) 05/14/23 12:45 Ur Specific [place] 1.005 (1.005-1.030) 05/14/23 12:45 Urine Protein Neg (Negative) 05/14/23 12:45 Urine Glucose (UA) Norm (Normal) 05/14/23 12:45 Urine Ketones Negative (Negative) 05/14/23 12:45 Urine Blood Neg (Negative) 05/14/23 12:45 Urine Nitrate Negative (Negative) 05/14/23 12:45 Urine Bilirubin Neg (Negative) 05/14/23 12:45 Urine Urobilinogen Norm mg/dL (Negative) 05/14/23 12:45 Ur Leukocyte Esterase Negative (Negative) 05/14/23 12:45 EKG Data EKG 1: I personally reviewed and interpreted this EKG as follows: EKG interpretation date: 05/14/23 EKG interpretation time: 11:53 Interpretation: EKG shows atrial fibrillation with a ventricular rate 79 bpm, QRS duration 110, QTc 346, borderline left axis deviation, nonspecific T wave abnormality. EKG 2: I personally reviewed and interpreted this EKG as follows: EKG interpretation date: 05/14/23 EKG interpretation time: 13:51 Prior EKG tracings: available for review Interpretation: EKG shows A-fib with ventricular rate of 82 beats a minute, QRS duration 100, QTc of 335, nonspecific T wave abnormality Discharge Plan Discharge Admit Provider: Francisco Campos Clinical Impression: Atypical chest pain, Elevated troponin, Acute hypokalemia Condition: Stable Prescriptions: No Action (DME) Optifoam Silicone Bordered Foam Dressing 3 X 3 IN patch See Rx Instructions .Route .MEDSUPPLY Qty: 1 0RF Rx Instructions: As directed [facility] [place] [place] midodrine 5 mg tablet 5 mg PO TID Qty: 90 3RF Rx Instructions: do not give last dose of day after 6PM or within 4 hrs of bedtime metolazone 5 mg tablet 5 mg PO Q48H Qty: 15 2RF Rx Instructions: Take 30 minutes before morning dose of furosemide potassium chloride 20 mEq tablet extended release 20 meq PO BID Qty: 60 2RF (DME) Diabetic Shoes with toe filler to right See Rx Instructions .Route .MEDSUPPLY Qty: 1 0RF Rx Instructions: As directed By [facility] fluticasone propionate [Flonase Allergy Relief] 50 mcg/actuation spray,suspension 1 spray intranasal DAILY PRN (Reason: Allergy Symptoms) Rx Instructions: administer into each nostril Eliquis 5 mg tablet 5 mg PO BID tramadol 50 mg tablet 50 mg PO BID PRN (Reason: pain) Qty: 45 0RF baclofen 10 mg tablet 10 mg PO BID PRN (Reason: spasm) Qty: 60 0RF acetaminophen 500 mg Tablet 1,000 mg PO Q6H PRN (Reason: Pain) 14 Days Qty: 20 0RF pantoprazole [Protonix] 40 mg tablet,delayed release (DR/EC) 40 mg PO BID Qty: 60 3RF tamsulosin 0.4 mg Capsule 0.8 mg PO BEDTIME fluticasone furoate-vilanterol [Breo Ellipta] 200-25 mcg/dose Blister With Device 1 inh INHALATION QAM ipratropium-albuterol 0.5 mg-3 mg(2.5 mg base)/3 mL solution for nebulization 3 ml INHALATION QID PRN (Reason: Shortness Of Breath) diltiazem HCl 180 mg capsule,extended release 24hr 180 mg PO DAILY Vitamin B-12 1,000 mcg Tablet 1,000 mcg PO DAILY Vitamin D3 50 mcg (2,000 unit) Tablet 50 mcg PO DAILY metoprolol tartrate 100 mg tablet 100 mg PO BID albuterol sulfate 90 mcg/actuation HFA aerosol inhaler 2 puff inhalation Q8H PRN (Reason: shortness of breath or wheezing) Cardizem 30 mg tablet 30 mg PO Q8H PRN (Reason: for heart rate greater than 120) Rx Instructions: for H/R > 120 topiramate 50 mg tablet 50 mg PO BID PRN (Reason: Pain) Referrals: Laureen Krishna FNP [Primary Care Provider] - Coding Level of Care Code ED Union Representative for Len Davenport
[2023-05-14 12:21] LABS: Troponin(5th) Baseline 97 ng/L (0-15)
[2023-05-14 12:27] LABS: INR 1.14 (0.8-1.2)
[2023-05-14 12:31] LABS: Alanine Aminotransferase 7 U/L (0-41); Alkaline Phosphatase 117 U/L (40-130); Anion Gap 17.8 (5-19); Aspartate Amino Transferase 11 U/L (0-40); Blood Urea Nitrogen 37 mg/dL (8-23); Calcium 9.5 mg/dL (8.5-10.5); Carbon Dioxide 28 mmol/L (22-29); Chloride 86 mmol/L (98-107); Glucose 185 mg/dL (65-115); Magnesium 2.4 mg/dL (1.7-2.3); NT Pro B Type Natriuretic Pept 477 pg/mL (0-125); Osmolality Calculated 281 mOsm/kg (285-295); Sodium 129 mmol/L (136-145); Total Bilirubin 0.3 mg/dL (0.15-1.2)
[2023-05-14 12:33] LABS: Potassium 2.8 mmol/L (3.5-5.1)
[2023-05-14 13:11] LABS: Add Urine Microscopic? NO; Charge for UA Resulting for Rev
[2023-05-14] MEDS: ketorolac 30 mg/mL INJ IVP (13:11)
[2023-05-14] MEDS: orphenadrine 30 mg/mL Inj 2 mL 60 MG IVP (13:12)
[2023-05-14] MEDS: potassium chloride ER 20 mEq Tablet 40 MEQ PO (13:12)
[2023-05-14] MEDS: sodium chloride 0.9% 1,000 ML 999 ML IV (13:12)
[2023-05-14 13:15] LABS: Blood Urine Neg (Negative); Glucose Urine UA Norm (Normal); Ketones Urine Negative (Negative); Nitrate Urine Negative (Negative); Protein Urine Neg (Negative); Specific Gravity, Urine 1.005 (1.005-1.030); Urine Appearance Clear (CLEAR); Urine Color Straw (Yellow); pH Urine 7 (5-7)
[2023-05-14 13:16] LABS: Bilirubin Urine Neg (Negative); Leukocyte Esterase Urine Negative (Negative); Urobilinogen Urine Norm (Negative)
--- NOTE | 2023-05-14 13:51 | ECG_ITS ---
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 Measurements Intervals [place] Rate: 82 P: 0 KS: 0 QRS: -8 QRSD: 100 T: 61 QT: 297 QTc: 348 Interpretive Statements ATRIAL FIBRILLATION NONSPECIFIC T-WAVE ABNORMALITY Compared to ECG 05/14/2023 11:53:05 No significant changes Electronically Signed On 05-14-2023 16:14:57 CDT by Shilo Bagley M.D. [email or web address]
[2023-05-14 14:17] LABS: Troponin 5 2HR 89.12 ng/L (0-15)
[2023-05-14 14:18] LABS: Troponin 5 2HR Delta -7.88 ABS# (0-10)
--- NOTE | 2023-05-14 14:29 | PC.PHAR ---
pts sister shannen [facility] [phone] verified pts medications-states the pt is not taking lasix 40mg bid states the pt is only taking metolazone 5mg [id number] are made in the pharmacy comments
[2023-05-14 15:50] LABS: Creatine Phosphokinase 70 U/L (39-308)
--- NOTE | 2023-05-14 16:40 | USCV_ITS ---
Jace Christie Age: 72 Gender: M : 1950 Exam Date: 05/14/2023 18:20 Ordering Phys: Francisco Campos MD Technologist: YEIMI [place] [facility] [place]: chest pain, elevated troponin. No history of cardiac intervention per patient. BP: 115 / 69 HR: 91 Rhythm: Sinus Technical Quality: Adequate MEASUREMENTS (Male / Female) Normal Values 2D ECHO LV Diastolic Diameter PLAX 5.8 cm 4.2 - 5.9 / 3.9 - 5.3 cm LV Systolic Diameter PLAX 3.7 cm IVS Diastolic Thickness 1.1 cm 0.6 - 1.0 / 0.6 - 0.9 cm IVS Systolic Thickness 1.5 cm LVPW Diastolic Thickness 1.4 cm 0.6 - 1.0 / 0.6 - 0.9 cm LVPW Systolic Thickness 1.8 cm LVOT Diameter 2.3 cm LV Ejection Fraction 2D Teich 64.9 % LV Ejection Fraction MOD 2C 53.7 % LV Ejection Fraction 2C AL 57.5 % LA Diameter 4.3 cm LA Width 3.5 cm LA Height 6.8 cm RA Width 4.9 cm RA Height 6.8 cm Aorta at Sinotubular Diameter 3.3 cm IVC Diameter 2.1 cm M-MODE Aortic Annulus Diameter 3.7 cm LA Ao Ratio MM 1.2 MV E Point Septal Separation 0.3 cm DOPPLER AV Peak Velocity 152.0 cm/s LVOT Peak Velocity 98.0 cm/s AV Area Cont Eq vti 2.9 cm squared AV Area Cont Eq pk 2.6 cm squared MV Peak Velocity 109.0 cm/s MV Area PHT 4.0 cm squared MV E' Velocity 54.5 cm/s Mitral E to MV E' Ratio 7.6 Mitral E to LV E' Lateral Ratio 6.9 Mitral E to LV E' Septal Ratio 8.5 TV Peak E Velocity 52.0 cm/s PV Peak Velocity 104.0 cm/s RV Acceleration Time 0.1 s RV Ejection Time 0.3 s RV AcT/ET 0.4 FINDINGS Left Ventricle Normal left ventricular size and systolic function, EF 57 %. No regional wall motion abnormalities. Right Ventricle The right ventricle is normal in size and function. Right Atrium Mildly increased right atrial size. Left Atrium Mildly increased left atrial size. Mitral Valve No gross abnormalities noted Aortic Valve Thickened aortic valve. Tricuspid Valve No gross abnormalities noted Pulmonic Valve Mild pulmonary valve regurgitation. Pericardium Normal pericardium without effusion. Aorta Normal ascending aorta dimension. IVC The inferior vena cava appears normal. CONCLUSIONS Normal left ventricular size and systolic function, EF 57 %. No regional wall motion abnormalities. Mild biatrial enlargement. Mild pulmonary valve regurgitation. There is no pericardial effusion. There are no intracardiac masses. Compared to the study from 10/19/2022, there may not be a significant change in the 2D findings Dr Michelle Torres MD [facility] (Electronically Signed) Final Date: 14 May 2023 20:19 S
--- NOTE | 2023-05-14 16:58 | US_ITS ---
WS: [id number] ULTRASOUND SOFT TISSUES LEFT neck, submandibular region. HISTORY: L side neck tender/subjective lump COMPARISON: Neck CT 05/14/2023. TECHNIQUE: 2-D and color Doppler imaging is submitted. No soft tissue masses identified along the LEFT neck. No mass identified also on a CT performed on same day. There are multiple metallic fragments in the soft tissues of the neck which may be respon sible for the palpable abnormality. US/US soft tissue head neck [id number] IMPRESSION: No soft tissue abnormality identified along the LEFT submandibular region by yane forbes.
--- NOTE | 2023-05-14 17:07 | PM.HP ---
Providers/Chief Complaint Admitting Physician: Francisco Campos Primary Care Provider: MILADIS Leblanc Chief Complaint: sudden onset chest pain History of Present Illness 72-year-old gentleman with history of atrial fibrillation, on rate control, anticoagulation with Eliquis, history of orthostatic hypotension, on midodrine, history of chronic back pain, try taking Topamax several times but could not tolerate the medication so did not continue it, is not sure if he still taking baclofen, presented with several complaints including migrating spasms over different muscles, and including his legs, arms, torso and seem to be traveling. Additionally several days back says that he produce copious amounts of clear sputum. Has been having some mild sore throat on the left side. Feels subjective lump with his fingers in the left side of his throat states that it feels like a lump of mucus which he states he can sometimes bring up with water. During interview very jittery, anxious, states he needs something immediately due to COPD and shortness of breath otherwise he is going to stop breathing, picks up his inhaler and uses it. States that he has been having to use his inhaler more often at home. Currently using it twice a day at least. Is noted hypokalemia, potassium 2.8, received replacement. In ER he reported having chest pain at home, left-sided radiating to his left arm, but also his left leg. Observation requested due to troponin abnormality with baseline 97, 2-hour troponin 89.12. EKGs with noted atrial fibrillation, without any obvious ischemic changes. No pain while here. NT proBNP 9477 in the setting of appears to be CKD, creatinine 1.3, worse than prior baseline but better than back in December at 1.6. Current baseline not entirely clear. He otherwise denies any additional recent medication changes. Does not drink any alcohol. Smokes cigarettes, about half a pack a day. Denies any recreational drug use. Review of Systems Const: Denies: fever(s), chills, body aches or malaise ENMT: Reports: throat pain; Denies: ear or mastoid pain Card: Reports: chest pain; Denies: edema, pre-syncope or dyspnea on exertion Resp: Denies: dyspnea, productive cough, change in phlegm color or hemoptysis GI: Denies: abdominal pain, nausea, vomiting, diarrhea, constipation, hematochezia or melena : Denies: flank pain, difficulty urinating, urinary frequency or hematuria Musc: Denies: back pain, joint swelling or joint redness Skin/Breast: Denies: rash or new lesions Neuro: Denies: headache(s), numbness in extremities or weakness in extremities Medications/Allergies Home Medications Medication Instructions Recorded Confirmed Last Taken Type fluticasone furoate 200 1 inh inhalation QAM 06/21/22 05/14/23 08/25/22 History mcg-vilanterol 25 mcg/dose inhalation powder (Breo Ellipta) tamsulosin 0.4 mg capsule 0.8 mg PO BEDTIME 06/21/22 05/14/23 08/24/22 History Optifoam Silicone Bordered Foam #1 ea 09/11/22 05/14/23 Unknown Rx Dressing acetaminophen 500 mg tablet 1,000 mg PO Q6H PRN Pain 14 days 10/22/22 05/14/23 Unknown Rx #20 tabs pantoprazole 40 mg tablet,delayed 40 mg PO BID #60 tabs 10/22/22 05/14/23 Unknown Rx release (Protonix) Diabetic Shoes with toe filler to #1 ea 11/10/22 05/14/23 Unknown Rx right apixaban 5 mg tablet (Eliquis) 5 mg PO BID 03/20/23 05/14/23 Unknown History fluticasone propionate 50 1 spray intranasal DAILY PRN 03/20/23 05/14/23 Unknown History mcg/actuation nasal Allergy Symptoms spray,suspension (Flonase Allergy Relief) ipratropium 0.5 mg-albuterol 3 mg 3 ml inhalation QID PRN Shortness 03/20/23 05/14/23 Unknown History (2.5 mg base)/3 mL nebulization Of Breath soln baclofen 10 mg tablet 10 mg PO BID PRN spasm #60 tabs 05/02/23 05/14/23 Unknown Rx metolazone 5 mg tablet 5 mg PO Q48H #15 tabs 05/02/23 05/14/23 Unknown Rx midodrine 5 mg tablet 5 mg PO TID #90 tabs 05/02/23 05/14/23 Unknown Rx potassium chloride 20 mEq 20 meq PO BID #60 tabs 05/02/23 05/14/23 Unknown Rx tablet,extended release tramadol 50 mg tablet 50 mg PO BID PRN pain #45 tabs 05/02/23 05/14/23 Unknown Rx albuterol sulfate 90 mcg/actuation 2 puff inhalation Q8H PRN 05/14/23 05/14/23 Unknown History aerosol inhaler shortness of breath or wheezing cholecalciferol (vitamin D3) 50 50 mcg PO DAILY 05/14/23 05/14/23 Unknown History mcg (2,000 unit) tablet (Vitamin D3) cyanocobalamin (vitamin B-12) 1,000 mcg PO DAILY 05/14/23 05/14/23 Unknown History 1,000 mcg tablet (Vitamin B-12) diltiazem HCl 180 mg 180 mg PO DAILY 05/14/23 05/14/23 Unknown History capsule,extended release 24 hr diltiazem HCl 30 mg tablet 30 mg PO Q8H PRN for heart rate 05/14/23 05/14/23 Unknown History (Cardizem) greater than 120 metoprolol tartrate 100 mg tablet 100 mg PO BID unless bp is below 05/14/23 05/14/23 Unknown History 100 (doesnt take) topiramate 50 mg tablet 50 mg PO BID PRN Pain 05/14/23 05/14/23 Unknown History Allergies Allergy/AdvReac Type Severity Reaction Status Date / Time acetaminophen AdvReac Mild ADR-Dizzine Verified 05/02/23 08:10 [From Tylenol-Codeine #3] ss codeine AdvReac Mild ADR-Dizzine Verified 05/02/23 08:10 [From Tylenol-Codeine #3] ss PFSH Acute PFSH: Medical History Acute blood loss anemia Acute upper GI bleed Atrial fibrillation with rapid ventricular response Black tarry stools Chronic anticoagulation COPD (chronic obstructive pulmonary disease) COPD exacerbation COVID Dehiscence of amputation stump of right lower extremity Dehydration Diabetes mellitus Diabetic peripheral neuropathy associated with type 2 diabetes mellitus History of amputation of great toe Hyperglycemia Hypotension Hypoxemia Melena Non-pressure 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 Shock Surgical History S/P foot surgery, right 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 Family History Denies family history of Cancer Social History Smoking and tobacco status: current every day smoker cigarettes Packs smoked per day: 0.5 [ Other cigarette details: Smoking off and on] Vitals/I&O/Wt Last Vital Signs Temp 97.9 F 05/14/23 16:55 Pulse 76 05/14/23 16:55 Resp 14 05/14/23 16:55 BP 115/69 05/14/23 16:55 Pulse Ox 97 05/14/23 16:55 O2 Del Method Room Air 05/14/23 16:55 Weight last 48 hrs Weight 72.575 kg Physical Exam Const: COMMON NORMALS: patient oriented x3 and alert GENERAL APPEARANCE: cooperative ORIENTATION/CONSCIOUSNESS: Yes awake OTHER: Anxious, tremulous, jittery, irritable. HENMT: COMMON NORMALS: oropharynx normal Neck/C-Spine: COMMON NORMALS: no JVD Resp: COMMON NORMALS: normal respiratory effort and clear to auscultation bilaterally AUSCULTATION: clear to auscultation bilaterally Cardio: COMMON NORMALS: no JVD, regular rhythm, S1 normal heart sound present, S2 normal heart sound present and No murmurs present (Cardio) RHYTHM: regular rhythm HEART SOUNDS: S1 normal heart sound present and S2 normal heart sound present GI: COMMON NORMALS: Normal to inspection, nondistended, normoactive bowel sounds present, Soft to palpation and non-tender PALPATION: Yes Soft to palpation Extremity: COMMON NORMALS: no joint enlargement GENERAL: Yes edema (trace LLE) Neuro: COMMON NORMALS: patient oriented x3 and moves all extremities SENSORIUM/ORIENTATION: Yes alert Skin: COMMON NORMALS: no rashes or lesions noted GENERAL SKIN EXAM: no rashes or lesions noted and dry skin OTHER: Trace stasis dermatitis left lower extremity above the ankle. Minimal erythema which he states is not new and has been there a long, left leg is always slightly more swollen he states. Data 05/14/23 11:30 05/14/23 11:30 A&P Assessment and plan (1) Muscle spasm: Appears may be due to combination of factors, including hypokalemia, condition appears may be overusing albuterol, Saturation 98% on room air, however, with air hunger symptoms, has been using his inhaler more often. States at least twice a day which is more than usual for him. He is not sure whether he is taking baclofen. Denies other medication changes. Is not taking Topamax. He is still taking midodrine. Received replacement potassium, recheck potassium. Monitor on telemetry due to risk of severe/life-threatening argument with electro abnormalities. History of atrial fibrillation. Currently rate controlled. Assess limited TTE. Complete troponin EKG series. Hold metolazone. He does also appear mildly dehydrated. Dry skin, loss of turgor. Elevated bicarb. Continue potassium supplementation. Check TSH, B12, folic acid, vitamin D. Denies any EtOH, recreational drug use. Noted unremarkable CXR, UA. (2) Atypical chest pain: Does have at least moderate troponin elevation, although it is in setting of CKD currently with possibly some mild ARTEMIO. NT proBNP 427. EKG without obvious ischemia on my review. Noted atrial fibrillation. Complete troponin EKG series. Limited TTE. Noted normal EF back in October. Check D-dimer. (3) Elevated troponin: As above. (4) Acute hypokalemia: ContinueHold metolazone. Potassium replacement. Recheck potassium tonight and in the morning. Monitor on telemetry due to risk of arrhythmia. Plan ARTEMIO on CKD: Creatinine 1.3, unknown baseline recently. Subjective lump left side of neck: Assess with ultrasound. Sore throat: Assess rapid strep, respiratory panel. COPD: Does not appear in exacerbation, but is quite anxious, has been using his inhaler much more often. Has been having rhinorrhea. We will add fluticasone. Discussed that some of the jitteriness, tremulousness, can be the result of overuse of albuterol. Orthostatic hypotension: Continue midodrine. Monitor blood pressures. A-fib: Continue Eliquis, diltiazem, metoprolol. Requesting home medications to be confirmed. Discussed with ER physician. ER documentation reviewed. Attestations Medical Necessity Statement*: Placed in observation for additional assessment and management after episode of chest pain, troponin abnormality, muscle spasms, hypokalemia, ARTEMIO. Diagnoses Muscle spasm M62.838 Atypical chest pain R07.89 Elevated troponin R77.8 Acute hypokalemia E87.6
[2023-05-14 17:45] LABS: 25 Hydroxy Vitamin D 23 ng/mL (30-100); Thyroid Stimulating Hormone 1.58 uIU/mL (0.27-4.20); Vitamin B12 1275 pg/mL (232-1245)
[2023-05-14 17:57] LABS: D Dimer 3.68 ug/mIFEU (0-0.59)
--- NOTE | 2023-05-14 18:11 | CTR_ITS ---
PROCEDURE INFORMATION: Exam: CTA Chest With Contrast Exam date and time: 05/14/2023 7:52 PM Age: 72 years old Clinical indication: Other: Chest pain; Additional info: Assess for pe or large vessel dissection, please extend up to include neck (sore throat/subjective TECHNIQUE: Imaging protocol: Computed tomographic angiography of the chest with contrast. Exam focused on the arteries. 3D rendering (Not supervised by radiologist): MIP and/or 3D reconstructed images were created by the technologist. Radiation optimization: All CT scans at this facility use at least one of these dose optimization techniques: automated exposure control; mA and/or kV adjustment per patient size (includes targeted exams where dose is matched to clinical indication); or iterative reconstruction. Contrast material: OMNI 350; Contrast volume: 75 ml; Contrast route: INTRAVENOUS (IV); REPORTING DATA: Count of CT and Cardiac NM exams in prior 12 months: This patient has received 3 known CTs and 0 known cardiac nuclear medicine studies in the 12 months prior to the current study. COMPARISON: CT angio chest PE protcl [id number] 08/25/2022 1:40 PM RADIATION DOSE METRICS: Total DLP (mGy-cm): 1355.77 FINDINGS: Pulmonary arteries: Normal. No pulmonary emboli. Aorta: Ascending thoracic aorta dilated to nearly 4 cm. Lungs: Emphysematous changes. Left lower lobe dependent subsegmental atelectasis versus minimal infiltrate. Pleural spaces: Right upper lobe spiculated nodule measuring 3.5 cm with extension to the pleural surface, somewhat more prominent compared to prior exam. Heart: Cardiomegaly. Coronary arteries: Coronary artery atherosclerotic calcifications. Lymph nodes: Unremarkable. No enlarged lymph nodes. Liver: Left hepatic lobe cyst. Kidneys and ureters: Bilateral renal cysts, negative for follow up. Stomach and bowel: Diverticulosis without diverticulitis. Bones/joints: T12 vertebral body compression fracture without retropulsion of bony fragments, new compared to prior exam, age indeterminate. Soft tissues: Unremarkable. CT/CT angio chest PE protcl [id number] IMPRESSION: 1. Negative for pulmonary embolus. 2. Ascending thoracic aorta dilated to nearly 4 cm. 3. Cardiomegaly. 4. Coronary artery atherosclerotic calcifications. 5. Emphysematous changes. 6. Left lower lobe dependent subsegmental atelectasis versus minimal infiltrate. 7. Left hepatic lobe cyst. 8. Bilateral renal cysts, negative for follow up. 9. Diverticulosis without diverticulitis. 10. Right upper lobe spiculated nodule measuring 3.5 cm with extension to the pleural surface, somewhat more prominent compared to prior exam. Highly suspicious nodule(s). Consider non-emergent PET/CT, or tissue sampling.(Reference: Ha) 11. T12 vertebral body compression fracture without retropulsion of bony fragments, new compared to prior exam, age indeterminate. COMMENTS: In the absence of a history or active diagnosis of lung cancer, it is recommended that this patient with emphysema be evaluated for enrollment in a low dose CT lung cancer screening program. REFERENCES: Ha Valdes, et al. Guidelines for Management of Incidental Pulmonary Nodules Detected on CT Images: From the Fleischner Society 2017. Radiology. 2017;284(1):228-243.
[2023-05-14 18:27] LABS: Folate Level 4.7 ng/mL (4.5-32.2)
--- NOTE | 2023-05-14 18:35 | CTR_ITS ---
PROCEDURE INFORMATION: Exam: CT Neck With Contrast Exam date and time: 05/14/2023 7:52 PM Age: 72 years old Clinical indication: Mass, lump, or swelling in neck; Bilateral; Additional info: PT C/O lump in throat TECHNIQUE: Imaging protocol: Computed tomography of the neck with contrast. Radiation optimization: All CT scans at this facility use at least one of these dose optimization techniques: automated exposure control; mA and/or kV adjustment per patient size (includes targeted exams where dose is matched to clinical indication); or iterative reconstruction. Contrast material: OMNI 350; Contrast volume: 50 ml; Contrast route: INTRAVENOUS (IV); REPORTING DATA: Count of CT and Cardiac NM exams in prior 12 months: This patient has received 3 known CTs and 0 known cardiac nuclear medicine studies in the 12 months prior to the current study. COMPARISON: US soft tissue head neck [id number] 05/14/2023 6:55 PM RADIATION DOSE METRICS: Total DLP (mGy-cm): 252 FINDINGS: Paranasal sinuses: Paranasal sinus mucosal thickening. Pharynx: Unremarkable. No significant tonsillar enlargement. Larynx: Unremarkable. Epiglottis is normal. Prevertebral and retropharyngeal spaces: Unremarkable. Salivary glands: Normal. Glands are normal in size. Thyroid: Normal. No enlarged or calcified nodules. Lymph nodes: Unremarkable. No lymphadenopathy. Trachea: Visualized trachea is unremarkable. Lungs: Please refer to same-day CT chest for findings in this area. Bones/joints: Multiple metallic radiodensities seen in the region of the hyoid bone and thyroid cartilage neck soft tissues measuring up to 8.4 mm largely on the right side, consistent with multiple punctate radiodense foreign bodies, please correlate with history. Vasculature: Ascending thoracic aorta dilated to 3.9 cm. Soft tissues: See Bones/joints finding. CT/CT neck w con* [id number] IMPRESSION: 1. Multiple metallic radiodensities seen in the region of the hyoid bone and thyroid cartilage neck soft tissues measuring up to 8.4 mm largely on the right side, consistent with multiple punctate radiodense foreign bodies, please correlate with history. 2. Paranasal sinus mucosal thickening. 3. Ascending thoracic aorta dilated to 3.9 cm. 4. Please refer to same-day CT chest for findings in this area.
[2023-05-14] MEDS: potassium chloride ER 20 mEq Tablet PO (18:47)
[2023-05-14] MEDS: baclofen 10 mg Tablet PO (18:47)
[2023-05-14] MEDS: metoprolol tartrate 50 mg Tablet 100 MG PO (18:47)
[2023-05-14] MEDS: fluticasone nasal spray 16gm Btl 1 SPRAY NASAL (19:03)
[2023-05-14 19:15] LABS: Potassium 2.8 mmol/L (3.5-5.1)
[2023-05-14 19:16] LABS: Troponin 5 6HR 92.81 ng/L (0-15)
[2023-05-14 19:17] LABS: Troponin 5 6HR Delta -4.19 ng/L (0-12)
[2023-05-14] MEDS: iohexol 350 mg/mL 500 mL Btl (per mL) IV (20:00)
[2023-05-14] MEDS: albumin 25 G/100 ML BAG 60 G IV (20:14)
[2023-05-14] MEDS: apixaban 5 mg Tablet PO (20:14)
[2023-05-14] MEDS: midodrine 5 mg TABLET PO (20:14)
[2023-05-15] VITALS (9 sets, daily range): BP systolic 80–120; BP diastolic 44–70; PULSE 66–74; RESP 17–20; TEMP 36.4–36.6; O2SAT 95–98
[2023-05-15 03:17] LABS: Rapid Strep A Test Negative (Negative)
[2023-05-15] MEDS: albuterol 2.5 mg/3 mL Neb INHALATION ×2 (04:34→09:50)
[2023-05-15 04:35] LABS: Basophils # 0.1 10^3/uL (0.0-0.1); Basophils % 0.6 %; Eosinophils # 0.7 10^3/uL (0.0-0.8); Hematocrit 34.8 % (42.0-52.0); Hemoglobin 11.1 g/dL (11.7-16.6); Lymphocytes # 1.9 10^3/uL (0.8-4.8); Lymphocytes % 17.8 %; Mean Corpuscular HGB Conc 31.9 g/dL (30.0-36.0); Mean Corpuscular Hemoglobin 25.6 pg (28.0-34.0); Mean Corpuscular Volume 80.2 fl (80-94); Mean Platelet Volume 10.8 fL (7.4-10.4); Monocytes # 0.7 10^3/uL (0.2-0.9); Monocytes % 6.2 %; Nucleated Red Blood Cells % 0 %; Platelet Count 343 10^3/cmm (130-400); Red Blood Count 4.34 10^6/uL (4.1-5.3); Red Cell Distribution Width 14.4 % (12.1-15.1); White Blood Count 10.9 10^3/uL (4.0-10.0)
[2023-05-15 04:44] LABS: Adenovirus Not Detected (NOT DETECT); Chlamydia Pneumoniae Not Detected (NOT DETECT); Coronavirus 229E,HKU1,NL63,OC4 Not Detected (NOT DETECT); Human Metapneumovirus Not Detected (NOT DETECT); Human Rhinovirus/Enterovirus Not Detected (NOT DETECT); Influenza A Not Detected (NOT DETECT); Influenza A H1 Not Detected (NOT DETECT); Influenza A H1-2009 Not Detected (NOT DETECT); Influenza A H3 Not Detected (NOT DETECT); Influenza B Not Detected (NOT DETECT); Mycoplasma Pneumoniae Not Detected (NOT DETECT); Parainfluenza Virus Type 1 Not Detected (NOT DETECT); Parainfluenza Virus Type 2 Not Detected (NOT DETECT); Parainfluenza Virus Type 3 Not Detected (NOT DETECT); Parainfluenza Virus Type 4 Not Detected (NOT DETECT); Respiratory Syncytial Virus A Not Detected (NOT DETECT); Respiratory Syncytial Virus B Not Detected (NOT DETECT); SARS-COV-2 Not Detected (NOT DETECT)
[2023-05-15 04:59] LABS: Anion Gap 13.2 (5-19); Blood Urea Nitrogen 37 mg/dL (8-23); Calcium 9.5 mg/dL (8.5-10.5); Carbon Dioxide 28 mmol/L (22-29); Chloride 90 mmol/L (98-107); Glucose 104 mg/dL (65-115); Osmolality Calculated 275 mOsm/kg (285-295); Potassium 3.2 mmol/L (3.5-5.1); Sodium 128 mmol/L (136-145)
[2023-05-15] MEDS: midodrine 5 mg TABLET PO ×2 (08:28→15:23)
[2023-05-15] MEDS: potassium chloride ER 20 mEq Tablet PO (08:28)
[2023-05-15] MEDS: metoprolol tartrate 50 mg Tablet 100 MG PO (08:28)
[2023-05-15] MEDS: dilTIAZem ER (24HR) 180 mg Capsule PO (08:28)
[2023-05-15] MEDS: apixaban 5 mg Tablet PO (08:28)
[2023-05-15] MEDS: acetaminophen 325 mg Tablet 650 MG PO (08:48)
--- NOTE | 2023-05-15 09:55 | PC.CHAP ---
Pastoral Care Encounter/Spiritual Assessment Type of Contact [] Declined athletic training internship visit [] Patient/Family/Request visit [] Outpatient visit [] Follow-up visit [] Physician referral [] Code/Alert [x] Routine visit [] Staff referral [] Actively dying [] Patient sleeping [] Family support [] [] Out of room [] Palliative care [] [] Receiving care in room [] Pre-surgical visit [] Trauma [] Long length of stay [] ICU visit [] Other: Relational/Emotional Strength [x] Patient feels connected with others/family/visitors/staff [] Distress [] Loneliness/isolation [] Abandonment Spirituality of Patient [x] Person of Yvonne [] Attends Church of their Yvonne x[] Believes in Prayer [] Reads Bible or Quaker materials [] There are Spiritual issues to be addressed Skein Straightener Interventions [x] Prayer [x] Active listening [] Non-anxious presence [x] Spiritual/emotional support [] Crisis/trauma care [] Spiritual counseling [] Bereavement support [] Provided bereavement packet [] Provided Bible/devotional materials [] Provided toy/stuffed animal, coloring book to patient or family member [] Provided Communion [] Anointing/[place] [] Salvation [x] Completed spiritual assessment [] Other: Impact on Illness or Injury [] Angry [] Fearful [] Anxious [] Often cries [] Exhaustion [] Unable to work [] Unable to attend mormonism [] Unable to walk/stand [] Unable to read [] Unable to drive [] Unable to eat/drink [] Unable to sleep [] Unable to be with family [] Patient intubated [] Other: Summary Time spent with patient 5 min
[2023-05-15] MEDS: potassium chloride ER 20 mEq Tablet 40 MEQ PO (11:15)
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
== END 2023-05-15 16:28 | disposition home or self-care (01) ==
LOC: ER 15:20 → CSU 17:25
PROVIDERS: Admitting Provider Internal Medicine; Emergency Provider Emergency Medicine; PCP Nurse Practitioner; Visit Provider Internal Medicine
DX: M62.838 Other muscle spasm (principal); R07.89 Other chest pain; R77.8 Other specified abnormalities of plasma proteins; E87.6 Hypokalemia; E55.9 Vitamin D deficiency, unspecified; R91.1 Solitary pulmonary nodule; M79.5 Residual foreign body in soft tissue; R78.71 Abnormal lead level in blood; N18.9 Chronic kidney disease, unspecified; N17.9 Acute kidney failure, unspecified; Z79.01 Long term (current) use of anticoagulants; I87.2 Venous insufficiency (chronic) (peripheral); I77.819 Aortic ectasia, unspecified site; I48.91 Unspecified atrial fibrillation; J44.9 Chronic obstructive pulmonary disease, unspecified
CPT/HCPCS: 36415; 70491; 71045; 71275; 76536; 80048; 80053; 81003; 82306; 82550; 82607; 82746; 83655; 83735; 83880; 84132; 84443; 84484; 85025; 85378; 85610; 87081; 87486; 87581; 87633; 87880; 93005; 93308; 94640; 96361; 96374; 96375; 99285; G0378; J1885; J2360; J7030; J7613; P9046; Q9967

== ENCOUNTER → 2023-05-30 14:33 | Outpatient (BNVA) | payer OTHER, SELFPAY | PROVIDERS: PCP Nurse Practitioner; Visit Provider Anesthesiology Pain Medicine | DX: M54.16 Radiculopathy, lumbar region (principal) | CPT/HCPCS: 64483; 64484; J1100; J3490 ==

== ENCOUNTER → 2023-06-07 10:50 | Outpatient (BNVA) | payer OTHER, SELFPAY | PROVIDERS: PCP Nurse Practitioner; Visit Provider Internal Medicine Cardiovascular Disease | DX: I48.91 Unspecified atrial fibrillation (principal); I50.9 Heart failure, unspecified; Z79.01 Long term (current) use of anticoagulants; F17.210 Nicotine dependence, cigarettes, uncomplicated; E11.42 Type 2 diabetes mellitus with diabetic polyneuropathy; Z79.84 Long term (current) use of oral hypoglycemic drugs; J44.9 Chronic obstructive pulmonary disease, unspecified | CPT/HCPCS: 99214 ==

== ENCOUNTER → 2023-06-13 13:19 | Outpatient (BNVA) | payer OTHER, SELFPAY | PROVIDERS: PCP Nurse Practitioner; Visit Provider Anesthesiology Pain Medicine | DX: M54.16 Radiculopathy, lumbar region (principal) | CPT/HCPCS: 64483; 64484; J1100; J3490 ==

== ENCOUNTER → 2023-07-03 13:11 | Outpatient (BNVA) | payer OTHER, SELFPAY | PROVIDERS: PCP Nurse Practitioner; Visit Provider Internal Medicine Pulmonary Disease | DX: J44.9 Chronic obstructive pulmonary disease, unspecified (principal); R91.1 Solitary pulmonary nodule; F17.210 Nicotine dependence, cigarettes, uncomplicated | CPT/HCPCS: 99204 ==

== ENCOUNTER → 2023-07-10 11:09 | Outpatient (BNVA) | payer OTHER, SELFPAY | PROVIDERS: PCP Nurse Practitioner; Referring Provider Nurse Practitioner; Visit Provider Surgery | DX: S10.95XA Superficial foreign body of unspecified part of neck, initial encounter (principal); X58.XXXA Exposure to other specified factors, initial encounter | CPT/HCPCS: 99203 ==

== ENCOUNTER 2023-07-13 10:43 | Outpatient (CLI) | payer OTHER, SELFPAY ==
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
== END 2023-07-13 10:44 | disposition home or self-care (01) ==
PROVIDERS: PCP Nurse Practitioner; Visit Provider Specialist
DX: J30.9 Allergic rhinitis, unspecified (principal); R09.89 Other specified symptoms and signs involving the circulatory and respiratory systems; Z18.89 Other specified retained foreign body fragments; K44.9 Diaphragmatic hernia without obstruction or gangrene; K22.4 Dyskinesia of esophagus
CPT/HCPCS: 74220

== ENCOUNTER 2023-07-17 14:13 | Outpatient (CLI) | payer OTHER, SELFPAY ==
--- NOTE | 2023-07-17 12:00 | PETR_ITS ---
PROCEDURE INFORMATION: Exam: PET/CT Skull Base to Mid-thigh Exam date and time: 07/17/2023 12:24 PM Age: 73 years old Clinical indication: Abnormal findings; 10. Right upper lobe spiculated nodule measuring 3.5 cm with extension to the pleural surface, somewhat more prominent compared to prior exam. Highly suspicious nodule(s). Consider non-emergent pet/ct, or tissue sampling. (reference: Jacques); Prior surgery; Surgery date: 6+ months; Surgery type: Appy; Additional info: F/u lung nodule LABS AND CLINICAL REPORTS: Glucose: 105 mg/dl Treatment strategy for malignancy (PET staging): Initial Staging (PI) TECHNIQUE: Imaging protocol: Following at least four-hour fasting and following the injection of radiopharmaceutical, low dose CT images were obtained. Then, PET images were obtained. Attenuation corrected images were constructed using the CT scan. Fused images of PET and CT were reviewed. The standardized uptake values (SUV) reported below are maximum values within a region of interest, expressed in gm/ml. Exam includes orbital meatal line to mid-thigh. Radiopharmaceutical: 12.1 mCi F-18 FDG (Fluorodeoxyglucose), IV. Time of imaging post radiopharmaceutical administration: 1 hour Injection site: site COMPARISON: 1. CT neck w con* [id number] 05/14/2023 7:[address] angio chest PE protcl [id number] 05/14/2023 7:[address] abdomen pelvis w con* [id number] 10/19/2022 11:04 AM FINDINGS: Brain: Visualized brain has normal physiologic uptake. Paranasal sinuses: There is mild mucosal thickening in both maxillary sinuses with air-fluid levels present. Pharynx: There is symmetric uptake in the lingual tonsils without focal mass. Larynx: No abnormal uptake. Lungs, pleura and trachea: Spiculated nodule in the right lung apex again present measuring up to 3.5 cm extending to the pleural surface with associated bronchiectasis. On PET SUV maximum is 1.1 within the nodule. Emphysema is unchanged. Scarring in the peripheral left lower lung is unchanged. Heart: Stable heart size. Trace pericardial fluid. Coronary arteries: Stable coronary artery atherosclerosis. Mediastinal space: No abnormal uptake. Liver: Cyst in the liver is unchanged without uptake on PET. Gallbladder and bile ducts: No abnormal uptake. Pancreas: No abnormal uptake. Spleen: No abnormal uptake. Adrenal glands: No abnormal uptake. Kidneys and ureters: Renal cysts are unchanged. Stomach and bowel: No abnormal uptake. Vasculature: Stable atherosclerosis with ascending aortic ectasia to 4 cm. Lymph nodes: No abnormal uptake. No lymphadenopathy in the head, neck, chest, abdomen, pelvis, and extremities. Bones/joints: Multiple metallic radiodensities at the level of the hyoid bone and chin are again present. Possible old left thoracotomy changes are stable. Compression fracture of T12 inferiorly is unchanged. No suspicious bone lesion seen. There is uptake surrounding the left hip joint likely degenerative or related to bursitis. Soft tissues: There is nonspecific muscular uptake in the base of the left neck and in the left masseter. PET/PET skulltothigh SUBSEQ [id number] IMPRESSION: 1. Spiculated right apical lung nodule measuring up to 3.5 cm extending to the pleural surface is unchanged. This has low-grade uptake on PET. Differential diagnosis is a region of scarring or possibly a low FDG-avid malignancy such as adenocarcinoma. Given the patient's emphysema, consider biopsy for further assessment and recommend attention on follow-up. 2. Possible acute maxillary sinusitis changes bilaterally.
== END 2023-07-17 14:14 | disposition home or self-care (01) ==
LOC: RAD 14:13
PROVIDERS: PCP Nurse Practitioner; Visit Provider Internal Medicine Pulmonary Disease
DX: R91.1 Solitary pulmonary nodule (principal); J43.9 Emphysema, unspecified
CPT/HCPCS: 78815; A9552

== ENCOUNTER 2023-07-25 08:46 | Outpatient (CLI) | payer OTHER, SELFPAY ==
[2023-07-25 09:07] VITALS: PULSE 74; RESP 18; O2SAT 95
[2023-07-25 09:11] VITALS: PULSE 78
[2023-07-25] MEDS: albuterol 2.5 mg/3 mL Neb INHALATION (09:11)
== END 2023-07-25 08:47 | disposition home or self-care (01) ==
LOC: RT 08:47
PROVIDERS: PCP Nurse Practitioner; Visit Provider Internal Medicine Pulmonary Disease
DX: R06.02 Shortness of breath (principal)
CPT/HCPCS: 94060; 94618; 94726; 94729; 99204; J7613

== ENCOUNTER → 2023-10-01 13:05 | Outpatient (BNVA) | payer OTHER, SELFPAY | PROVIDERS: PCP Nurse Practitioner; Visit Provider Internal Medicine Pulmonary Disease | DX: J44.9 Chronic obstructive pulmonary disease, unspecified (principal); J43.2 Centrilobular emphysema; R91.1 Solitary pulmonary nodule; F17.210 Nicotine dependence, cigarettes, uncomplicated | CPT/HCPCS: 99214 ==

== ENCOUNTER → 2023-12-18 08:52 | Outpatient (BNVA) | payer OTHER, SELFPAY | PROVIDERS: PCP Emergency Medicine Emergency Medical Services; Visit Provider Nurse Practitioner Family | DX: I48.21 Permanent atrial fibrillation (principal); F17.210 Nicotine dependence, cigarettes, uncomplicated; Z79.01 Long term (current) use of anticoagulants | CPT/HCPCS: 99213 ==

== ENCOUNTER → 2024-04-10 15:21 | Outpatient (BNVA) | payer OTHER, SELFPAY | PROVIDERS: PCP Emergency Medicine Emergency Medical Services; Visit Provider Podiatrist Foot & Ankle Surgery | DX: L97.512 Non-pressure chronic ulcer of other part of right foot with fat layer exposed (principal); E11.621 Type 2 diabetes mellitus with foot ulcer; Z89.431 Acquired absence of right foot | CPT/HCPCS: 29445 ==

== ENCOUNTER → 2024-04-14 15:17 | Outpatient (BNVA) | payer OTHER, SELFPAY | PROVIDERS: PCP Emergency Medicine Emergency Medical Services; Visit Provider Podiatrist Foot & Ankle Surgery | DX: L97.512 Non-pressure chronic ulcer of other part of right foot with fat layer exposed (principal); E11.621 Type 2 diabetes mellitus with foot ulcer; Z89.431 Acquired absence of right foot | CPT/HCPCS: 29445 ==

== ENCOUNTER → 2024-04-21 15:13 | Outpatient (BNVA) | payer OTHER, SELFPAY | PROVIDERS: PCP Emergency Medicine Emergency Medical Services; Visit Provider Podiatrist Foot & Ankle Surgery | DX: E11.621 Type 2 diabetes mellitus with foot ulcer (principal); L97.512 Non-pressure chronic ulcer of other part of right foot with fat layer exposed; Z89.431 Acquired absence of right foot | CPT/HCPCS: 29445 ==

== ENCOUNTER 2024-04-28 16:07 | Outpatient (CLI) | payer OTHER, SELFPAY | END 2024-04-28 16:08 | disposition home or self-care (01) | LOC: SPT 16:07 | PROVIDERS: PCP Emergency Medicine Emergency Medical Services; Visit Provider Podiatrist Foot & Ankle Surgery | DX: Z46.89 Encounter for fitting and adjustment of other specified devices (principal); Z89.431 Acquired absence of right foot; L97.512 Non-pressure chronic ulcer of other part of right foot with fat layer exposed; E11.621 Type 2 diabetes mellitus with foot ulcer | CPT/HCPCS: 99213; L4361 ==

== ENCOUNTER → 2024-05-07 13:52 | Outpatient (BNVA) | payer OTHER, SELFPAY | PROVIDERS: PCP Emergency Medicine Emergency Medical Services; Visit Provider Podiatrist Foot & Ankle Surgery | DX: E11.621 Type 2 diabetes mellitus with foot ulcer (principal); L97.512 Non-pressure chronic ulcer of other part of right foot with fat layer exposed; Z89.431 Acquired absence of right foot | CPT/HCPCS: 99213 ==

== ENCOUNTER → 2024-05-21 11:35 | Outpatient (BNVA) | payer OTHER, SELFPAY | PROVIDERS: PCP Emergency Medicine Emergency Medical Services; Visit Provider Podiatrist Foot & Ankle Surgery | DX: L97.512 Non-pressure chronic ulcer of other part of right foot with fat layer exposed (principal); Z89.431 Acquired absence of right foot; E11.621 Type 2 diabetes mellitus with foot ulcer | CPT/HCPCS: 73630; 99213 ==

== ENCOUNTER → 2024-06-03 13:38 | Outpatient (BNVA) | payer OTHER, SELFPAY | PROVIDERS: PCP Emergency Medicine Emergency Medical Services; Visit Provider Podiatrist Foot & Ankle Surgery | DX: E11.621 Type 2 diabetes mellitus with foot ulcer (principal); L97.512 Non-pressure chronic ulcer of other part of right foot with fat layer exposed; Z89.431 Acquired absence of right foot | CPT/HCPCS: 99213 ==

== ENCOUNTER → 2024-06-19 13:23 | Outpatient (BNVA) | payer OTHER, SELFPAY | PROVIDERS: PCP Emergency Medicine Emergency Medical Services; Visit Provider Internal Medicine | DX: I50.9 Heart failure, unspecified (principal); I48.91 Unspecified atrial fibrillation; J43.2 Centrilobular emphysema; E11.9 Type 2 diabetes mellitus without complications; F17.210 Nicotine dependence, cigarettes, uncomplicated | CPT/HCPCS: 99214 ==

== ENCOUNTER → 2024-07-02 11:00 | Outpatient (BNVA) | payer OTHER, SELFPAY | PROVIDERS: PCP Emergency Medicine Emergency Medical Services; Visit Provider Podiatrist Foot & Ankle Surgery | DX: E11.621 Type 2 diabetes mellitus with foot ulcer (principal); L97.512 Non-pressure chronic ulcer of other part of right foot with fat layer exposed; Z89.431 Acquired absence of right foot | CPT/HCPCS: 99213 ==

== ENCOUNTER → 2024-07-30 10:57 | Outpatient (BNVA) | payer OTHER, SELFPAY | PROVIDERS: PCP Emergency Medicine Emergency Medical Services; Visit Provider Podiatrist Foot & Ankle Surgery | DX: E11.621 Type 2 diabetes mellitus with foot ulcer (principal); L97.512 Non-pressure chronic ulcer of other part of right foot with fat layer exposed; Z89.431 Acquired absence of right foot; R03.0 Elevated blood-pressure reading, without diagnosis of hypertension | CPT/HCPCS: 99213 ==

== ENCOUNTER → 2024-08-27 13:17 | Outpatient (BNVA) | payer OTHER, SELFPAY | PROVIDERS: PCP Emergency Medicine Emergency Medical Services; Visit Provider Podiatrist Foot & Ankle Surgery | DX: E11.621 Type 2 diabetes mellitus with foot ulcer (principal); L97.512 Non-pressure chronic ulcer of other part of right foot with fat layer exposed; Z89.431 Acquired absence of right foot | CPT/HCPCS: 99213 ==

== ENCOUNTER 2024-09-22 16:13 | Outpatient (CLI) | payer OTHER, SELFPAY ==
--- NOTE | 2024-09-22 16:35 | CTR_ITS ---
PROCEDURE INFORMATION: Exam: CT Chest With Contrast; Diagnostic Exam date and time: 09/22/2024 4:45 PM Age: 74 years old Clinical indication: Condition or disease; Lung condition and disease; Pulmonary nodule, solitary; Prior surgery; Surgery date: 6+ months; Surgery type: Left lobe/lung; Additional info: Right upper lobe nodule TECHNIQUE: Imaging protocol: Diagnostic computed tomography of the chest with contrast. Radiation optimization: All CT scans at this facility use at least one of these dose optimization techniques: automated exposure control; mA and/or kV adjustment per patient size (includes targeted exams where dose is matched to clinical indication); or iterative reconstruction. Contrast material: OMNI 350; Contrast volume: 100 ml; Contrast route: INTRAVENOUS (IV); COMPARISON: PT PET skull to thigh SUBS [id number] 07/17/2023 12:24 PM RADIATION DOSE METRICS: Total DLP (mGy-cm): 490.1 FINDINGS: Lungs: Similar-appearing subpleural reticulation is seen along the posterolateral border along the trajectory of the 7th rib. COPD changes. Stable spiculated architectural distortion/nodule of the right upper lobe from prior comparison, measuring up to 2.6 cm on today's examination.. Pleural spaces: Pleural scarring/reticulation along the trajectory of the left 7th rib. Heart: Unremarkable. No cardiomegaly. No pericardial effusion. Lymph nodes: Unremarkable. No enlarged lymph nodes. Vasculature: Extensive atherosclerotic disease. Liver: A few scattered hepatic hypodensities too small to characterize by modality, statistically likely to represent benign findings. Benign hepatic cyst is noted at the superior segment of the left lobe. Kidneys: Partially evaluated benign appearing bilateral renal cysts. Bones/joints: Diffuse degenerative change of the visualized osseous structures. Post surgical change of the posterolateral left thoracic cage and pleura between the 6th and 7th ribs. Focal posterior left lung herniation is seen between the 6th and 7th rib, measuring about 5.9 x 3.5 cm (series 3, image 27). Stable compression deformities of the lower thoracic and upper lumbar spine. Soft tissues: Unremarkable. Other findings: Metallic densities about the right hyoid/aerodigestive tract similar to prior comparison. CT/CT chest w con* [id number] IMPRESSION: 1. Left posterolateral lung herniation between the 6th and 7th rib. Consider Cardiothoracic surgery consultation. 2. Stable intrathoracic and extrathoracic findings as above, to include spiculated right upper lobe nodule, which has decreased in size from prior comparison. COMMENTS: Consistent with the [employer]'s Incidental Findings Committee white paper (J Am Mona Radiol 2018): Any incidental renal lesion less than 1 cm or classified as too small to characterize, or any incidental cystic renal lesion characterized as simple-appearing, is likely benign. No follow-up imaging is recommended for these lesions per consensus recommendations based on imaging criteria.
[2024-09-22] MEDS: iohexol 350 mg/mL 500 mL Btl (per mL) IV (16:55)
== END 2024-09-22 16:14 | disposition home or self-care (01) ==
LOC: RAD 16:14
PROVIDERS: PCP Emergency Medicine Emergency Medical Services; Visit Provider Nurse Practitioner
DX: R91.1 Solitary pulmonary nodule (principal); J94.8 Other specified pleural conditions; Q44.6 Cystic disease of liver
CPT/HCPCS: 71260

== ENCOUNTER → 2024-10-01 15:01 | Outpatient (BNVA) | payer OTHER, SELFPAY | PROVIDERS: PCP Emergency Medicine Emergency Medical Services; Visit Provider Podiatrist Foot & Ankle Surgery | DX: E11.621 Type 2 diabetes mellitus with foot ulcer (principal); L97.512 Non-pressure chronic ulcer of other part of right foot with fat layer exposed; Z89.431 Acquired absence of right foot | CPT/HCPCS: 99213 ==

== ENCOUNTER 2024-11-15 12:26 | Inpatient (IN) | payer OTHER, SELFPAY ==
[2024-11-15 13:35] VITALS: BP 100/58; PULSE 84; RESP 14; TEMP 36.4; O2SAT 94; BMI 23.7
--- NOTE | 2024-11-15 13:45 | PC.NURSE ---
As noted in triage note, this nurse was unable to locate pt initially for triage. Pt was then found and triage completed. During triage pt is very confused and cannot answer nurses questions. Nurse contacted who is listed in chart. Sister confirms she lives with pt and she called EMS due to confusion. [facility] brought pt into ER, triage note was marked as [facility] because that is what pt stated, however I confirmed with sister that this pt was picked up at home in [facility] [place] by [facility]. [facility] did not give report to this nurse for triage of the pt. states pt has been acting confused for days and she isnt sure what medications he has or hasnt taken.
--- NOTE | 2024-11-15 13:55 | PC.NURSE ---
[facility] family called D/T PT being confused for several days.
--- NOTE | 2024-11-15 14:03 | XRR_ITS ---
PROCEDURE INFORMATION: Exam: XR Chest Exam date and time: 11/15/2024 2:28 PM Age: 74 years old Clinical indication: Prior surgery; Surgery date: 6+ months; Surgery type: Lt lung/lower lobe; AMS; Weakness; Cough TECHNIQUE: Imaging protocol: Radiologic exam of the chest. Views: 1 view. COMPARISON: CT chest w con* [id number] 09/22/2024 4:45 PM FINDINGS: Lungs: Emphysematous changes. Bibasilar atelectasis versus minimal infiltrate. Pleural spaces: Unremarkable. No pleural effusion. No pneumothorax. Heart/Mediastinum: Cardiomegaly. Bones/joints: Unremarkable. XR/XR chest 1V portable [id number] IMPRESSION: 1. Cardiomegaly. 2. Emphysematous changes. 3. Bibasilar atelectasis versus minimal infiltrate.
--- NOTE | 2024-11-15 14:03 | CTR_ITS ---
PROCEDURE INFORMATION: Exam: CT Head Without Contrast Exam date and time: 11/15/2024 3:27 PM Age: 74 years old Clinical indication: Altered mental status/memory loss TECHNIQUE: Imaging protocol: Computed tomography of the head without contrast. Radiation optimization: All CT scans at this facility use at least one of these dose optimization techniques: automated exposure control; mA and/or kV adjustment per patient size (includes targeted exams where dose is matched to clinical indication); or iterative reconstruction. COMPARISON: US soft tissue head neck [id number] 05/14/2023 6:55 PM RADIATION DOSE METRICS: Total DLP (mGy-cm): 1123.01 FINDINGS: Brain: Moderate diffuse white matter disease likely reflecting chronic microvascular ischemic changes. Cerebral ventricles: No ventriculomegaly. Paranasal sinuses: Paranasal sinus opacifications. Mastoid air cells: Visualized mastoid air cells are well aerated. Bones: Unremarkable. No acute fracture. Soft tissues: Unremarkable. CT/CT head wo con* [id number] IMPRESSION: Negative for intracranial hemorrhage or mass effect.
[2024-11-15 14:51] LABS: Basophils # 0.1 10^3/uL (0.0-0.1); Basophils % 0.8 %; Eosinophils # 0.7 10^3/uL (0.0-0.8); Eosinophils % 5.9 %; Hematocrit 38.2 % (37-53); Lymphocytes # 2.6 10^3/uL (0.8-4.8); Lymphocytes % 22.3 %; Mean Corpuscular HGB Conc 33.5 g/dL (30-55); Mean Corpuscular Hemoglobin 28.8 pg (27-33); Mean Platelet Volume 9.5 fL (7.4-10.4); Monocytes # 0.8 10^3/uL (0.2-0.9); Monocytes % 6.8 %; Neutrophils # 7.57 10^3/uL (1.8-7.7); Neutrophils % 63.9 %; Nucleated Red Blood Cells % 0 %; Platelet Count 367 10^3/cmm (157-399); Red Blood Count 4.44 10^6/uL (3.85-5.65); Red Cell Distribution Width 14.9 % (12.1-15.1); White Blood Count 11.84 10^3/uL (3.29-11.43)
[2024-11-15] MEDS: LORazepam 2 mg/mL INJ 1 mL 1 MG IVP (14:51)
--- NOTE | 2024-11-15 14:52 | ED_ITS ---
Documented by User: Windy Neil MD 11/15/24 17:54 HPI - Altered Mental Status 2 General: Chief Complaint: Altered Mental Status Stated Complaint: gen. wealness / sleepness - confused Time Seen by Provider: 11/15/24 13:49 Limitations: other (Patient is confused) History of Present Illness: History is extremely limited as the patient is confused, not able to provide any additional history. Patient's history is extremely limited as he is unable to provide any history on his own as he is confused. Patient was dropped off in the waiting room by EMS without giving any history to anyone. No further history is available at this time. Further history from his sister, Cielo Jj . Patient has had gradually worsening confusion for 2 days. Progressively worsened. Today more agitated. Was up at 1am, talking bizarre. No trauma. No new medications. She's not sure if he's been taking his medications. No prior history of UTIs. Ran out of his prostate medications and was having difficulty urinating but got his flomax and it seemed better. Has not been sleeping. Denies drug use. No EtOH use. Related Data Home Medications Medication Instructions Recorded Confirmed tamsulosin 0.4 mg capsule 0.8 mg PO BEDTIME 06/21/22 10/01/24 apixaban 5 mg tablet (Eliquis) 5 mg PO BID 03/20/23 10/01/24 ipratropium 0.5 mg-albuterol 3 mg 3 ml inhalation QID PRN Shortness 03/20/23 10/01/24 (2.5 mg base)/3 mL nebulization Of Breath soln albuterol sulfate 90 mcg/actuation 2 puff inhalation Q8H PRN 05/14/23 10/01/24 aerosol inhaler shortness of breath or wheezing cholecalciferol (vitamin D3) 50 50 mcg PO DAILY 05/14/23 10/01/24 mcg (2,000 unit) tablet (Vitamin D3) diltiazem HCl 30 mg tablet 30 mg PO Q8H PRN for heart rate 05/14/23 10/01/24 (Cardizem) greater than 120 topiramate 50 mg tablet 50 mg PO BID PRN Pain 05/14/23 10/01/24 furosemide 40 mg tablet 40 mg PO DAILY 06/08/23 10/01/24 Previous Rx's Medication Instructions Recorded acetaminophen 500 mg tablet 1,000 mg (2 x 500 mg) PO Q6H PRN 10/22/22 Pain 14 days #20 tabs pantoprazole 40 mg tablet,delayed 40 mg PO BID #60 tabs 10/22/22 release (Protonix) Diabetic Shoes with toe filler to #1 ea 11/10/22 right baclofen 10 mg tablet 10 mg PO BID PRN spasm #60 tabs 05/02/23 potassium chloride 20 mEq 20 meq PO BID #60 tabs 05/02/23 tablet,extended release tramadol 50 mg tablet 50 mg PO BID PRN pain #45 tabs 05/02/23 nitroglycerin 0.4 mg sublingual 0.4 mg sublingual Q5M PRN chest 05/15/23 tablet pain #25 tabs midodrine 10 mg tablet 10 mg PO TID #90 tabs 06/07/23 budesonide 160 mcg-glycopyr 9 2 inh inhalation BID #10.7 grams 02/26/24 mcg-formot 4.8 mcg/actuation HFA inhaler (Breztri Aerosphere) Cam boot to right #1 ea 04/28/24 cadexomer iodine 0.9 % topical gel 40 g topical ONCE 30 days #40 grams 04/28/24 Allergies Allergy/AdvReac Type Severity Reaction Status Date / Time acetaminophen AdvReac Mild ADR-Dizzine Verified 10/01/24 15:05 [From Tylenol-Codeine #3] ss codeine AdvReac Mild ADR-Dizzine Verified 10/01/24 15:05 [From Tylenol-Codeine #3] ss Review of Systems 2 General: Reports: ROS unobtainable due to mental status PFSH ED 2 PFSH: Medical History Atrial fibrillation Diabetes mellitus Black tarry stools Melena Chronic anticoagulation Acute blood loss anemia Dehydration Shock Hypotension Atrial fibrillation with rapid ventricular response COPD (chronic obstructive pulmonary disease) Acute upper GI bleed Hyperglycemia COVID Hypoxemia COPD exacerbation Non-pressure 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 Dehiscence of amputation stump of right lower extremity Diabetic peripheral neuropathy associated with type 2 diabetes mellitus Surgical History 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 S/P foot surgery, right History of amputation of great toe Family History Denies family history of Cancer Social History Smoking and tobacco/nicotine status: current every day tobacco/nicotine user cigarettes Packs smoked per day: 1 Years cigarettes smoked: 53 [ Other cigarette details: Started at 1970] Physical Exam 2 Narrative: Patient is uncooperative, speech is somewhat garbled. He is unable to answer any questions appropriately. He occasionally will follow commands Const: COMMON NORMALS: alert and well nourished EXAM LIMITATIONS: altered mental status ORIENTATION/CONSCIOUSNESS: not oriented to person, not oriented to place and not oriented to time HENMT: COMMON NORMALS: normocephalic and atraumatic HEAD & SCALP: normal to inspection, normocephalic and atraumatic MOUTH: Normal oral and palatal mucosa present and moist mucous membranes abnormal; no mouth trauma Eye: COMMON NORMALS: Equal, round and reactive pupils present, EOMs intact bilaterally, conjunctivae normal and no scleral icterus CONJUNCTIVA: Yes conjunctivae normal PUPIL: Yes Equal, round and reactive pupils present Neck/C-Spine: COMMON NORMALS: full ROM, no lymphadenopathy, supple and no meningeal signs Resp: OTHER: Bilateral expiratory wheezes in the lung bases Cardio: OTHER: Regular rate GI: OTHER: Abdomen is soft, nontender Neuro: SENSORIUM/ORIENTATION: Yes alert, No oriented to person, No oriented to place, No oriented to time and Yes Orientation impaired MENINGEAL SIGNS: Yes no meningeal signs OTHER: Cranial nerves are intact. 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 Motor function of lower extremities is equal and intact. Psych: OTHER: agitated and uncooperative, trying to crawl out of bed Course 2 Vital Signs: Vital signs: Vital Signs Temperature 97.6 F 11/15/24 13:35 Pulse Rate 105 H 11/15/24 21:08 Respiratory Rate 20 H 11/15/24 21:08 Blood Pressure 171/108 11/15/24 21:08 Pulse Oximetry 94 11/15/24 21:08 Oxygen Delivery Me thod Room Air 11/15/24 21:08 Oxygen Flow Rate 2 11/15/24 18:40 MDM - Altered Mental Status Medical Decision Making 74-year-old male with a history of diabetes, atrial fibrillation, COPD, previous GI bleed presents with altered mental status. EMS brought the patient and left him in the waiting room and did not check out anyone so history is very limited. Patient's unable to provide any history, speech is somewhat garbled. Patient became agitated shortly after arrival. He has required Ativan 1 mg IV, Haldol 5 mg IV, Zyprexa 10 mg IM and subsequently ketamine 100 mg IV for enough sedation to obtain a CT scan. Will obtain head CT as well as a chest x-ray. Will obtain CBC, CMP, Urinalysis, ammonia level, drug screen, Tylenol and aspirin levels, PT PTT, ABG, lactic acid. Will give the patient an IV fluid bolus. Laboratory studies are unremarkable with the exception of the urinalysis being pending at this time. The patient after ketamine is not sleeping. Urinalysis will have to be obtained. He also has a normal ammonia level. Chest x-ray and head CT showed no acute findings. Uncertain etiology for the patient's symptoms, suspect this may be advanced dementia. Discussed with the sister she states he has been confused for a while but it has been gradually getting worse, significantly worse over the past week and has not been sleeping. If the patient does not have a UTI, he may need geriatric psych placement. Lab Data Patient does have a slight leukocytosis with a white blood cell count of 11.8. Hemoglobin is normal. His electrolytes are normal. Glucose 112. ABG is normal. Aspirin, Tylenol and alcohol are negative. He is negative for COVID, influenza and RSV. Urinalysis is pending at this time. 11/15/24 14:44 11/15/24 14:44 Radiology Impressions Chest X-Ray 11/15/24 14:03 IMPRESSION: 1. Cardiomegaly. 2. Emphysematous changes. 3. Bibasilar atelectasis versus minimal infiltrate. Head CT 11/15/24 14:03 IMPRESSION: Negative for intracranial hemorrhage or mass effect. Laboratory Results WBC 11.84 10^3/uL (3.29-11.43) H 11/15/24 14:44 RBC 4.44 10^6/uL (3.85-5.65) 11/15/24 14:44 Hgb 12.80 g/dL (11.27-16.99) 11/15/24 14:44 Hct 38.2 % (37-53) 11/15/24 14:44 MCV 86.0 fl (82-101) 11/15/24 14:44 MCH 28.8 pg (27-33) 11/15/24 14:44 MCHC 33.5 g/dL (30-55) 11/15/24 14:44 RDW 14.9 % (12.1-15.1) 11/15/24 14:44 Plt Count 367 10^3/cmm (157-399) 11/15/24 14:44 MPV 9.5 fL (7.4-10.4) 11/15/24 14:44 Neut % (Auto) 63.9 % 11/15/24 14:44 Lymph % (Auto) 22.3 % 11/15/24 14:44 [place] % (Auto) 6.8 % 11/15/24 14:44 Eos % (Auto) 5.9 % 11/15/24 14:44 Baso % (Auto) 0.8 % 11/15/24 14:44 Neut # (Auto) 7.57 10^3/uL (1.8-7.7) 11/15/24 14:44 Lymph # (Auto) 2.6 10^3/uL (0.8-4.8) 11/15/24 14:44 [place] # (Auto) 0.8 10^3/uL (0.2-0.9) 11/15/24 14:44 Eos # (Auto) 0.7 10^3/uL (0.0-0.8) 11/15/24 14:44 Baso # (Auto) 0.1 10^3/uL (0.0-0.1) 11/15/24 14:44 Nucleated RBC % (auto) 0 % 11/15/24 14:44 Nucleated RBCs # 0.0 /100WBC 11/15/24 14:44 PT 13.60 SECONDS (12.1-14.9) 11/15/24 14:44 INR 0.97 (0.8-1.2) 11/15/24 14:44 APTT 34.2 SECONDS (23.9-36.7) 11/15/24 14:44 Specimen Type Arterial 11/15/24 15:00 Sample Site Radial, right 11/15/24 15:00 ABG pH 7.39 (7.35-7.45) 11/15/24 15:00 ABG pCO2 36.9 mmHg (35-45) 11/15/24 15:00 ABG pO2 82.1 mmHg (80.0-100.0) 11/15/24 15:00 ABG PO2/FiO2 Ratio 390 11/15/24 15:00 ABG HCO3 22.3 mmol/L (22-26) 11/15/24 15:00 ABG Base Excess -2.4 mmol/L (-2.0-2.0) L 11/15/24 15:00 Cesar Test Pos 11/15/24 15:00 Hematocrit 33.2 % (42-52) L 11/15/24 15:00 O2 Delivery Device None 11/15/24 15:00 FiO2 21.0 % 11/15/24 15:00 Greeting Card Editor ID [id number] 11/15/24 15:00 Sodium 136 mmol/L (136-145) 11/15/24 14:44 Potassium 3.8 mmol/L (3.5-5.1) 11/15/24 14:44 Chloride 101 mmol/L (98-107) 11/15/24 14:44 Carbon Dioxide 23 mmol/L (22-29) 11/15/24 14:44 Anion Gap 15.8 (5-19) 11/15/24 14:44 BUN 27 mg/dL (8-23) H 11/15/24 14:44 Creatinine 1.2 mg/dL (0.7-1.2) 11/15/24 14:44 GFR Calculation Not Reportable 11/15/24 14:44 Glucose 112 mg/dL (65-115) 11/15/24 14:44 Calculated Osmolality 288 mOsm/kg (285-295) 11/15/24 14:44 Calcium 9.0 mg/dL (8.5-10.5) 11/15/24 14:44 Magnesium 2.0 mg/dL (1.7-2.3) 11/15/24 14:44 Total Bilirubin 0.4 mg/dL (0.15-1.2) 11/15/24 14:44 AST 9 U/L (0-40) 11/15/24 14:44 ALT 10 U/L (0-41) 11/15/24 14:44 Alkaline Phosphatase 99 U/L (40-130) 11/15/24 14:44 Ammonia 20 umol/L (16-60) 11/15/24 14:44 Total Protein 6.4 g/dL (6.6-8.7) L 11/15/24 14:44 Albumin 3.9 g/dL (3.5-5.2) 11/15/24 14:44 Globulin 2.5 g/dL (1.3-4.6) 11/15/24 14:44 Urine Color Yellow (Yellow) 11/15/24 18:38 Urine Appearance Clear (CLEAR) 11/15/24 18:38 Urine pH 6.0 (5-7) 11/15/24 18:38 Ur Specific [place] 1.010 (1.005-1.030) 11/15/24 18:38 Urine Protein Negative (Negative) 11/15/24 18:38 Urine Glucose (UA) Negative (Normal) 11/15/24 18:38 Urine Ketones Negative (Negative) 11/15/24 18:38 Urine Blood Negative (Negative) 11/15/24 18:38 Urine Nitrate Negative (Negative) 11/15/24 18:38 Urine Bilirubin Negative (Negative) 11/15/24 18:38 Urine Urobilinogen 0.2 mg/dL (Negative) 11/15/24 18:38 Ur Leukocyte Esterase Negative (Negative) 11/15/24 18:38 Amorphous Sediment Not Reportable 11/15/24 18:38 Salicylates < 0.3 mg/dL (3-10) L 11/15/24 14:44 Urine Opiates Screen Negative ng/mL (Negative) 11/15/24 18:38 Acetaminophen < 5.0 ug/mL (10-30) L 11/15/24 14:44 Ur Barbiturates Screen Negative ng/mL (Negative) 11/15/24 18:38 Ur Phencyclidine Scrn Negative ng/mL (Negative) 11/15/24 18:38 Ur Amphetamines Screen Negative ng/mL (Negative) 11/15/24 18:38 U Benzodiazepines Scrn Negative ng/mL (Negative) 11/15/24 18:38 Urine Cocaine Screen Negative ng/mL (Negative) 11/15/24 18:38 U Marijuana (THC) Screen Negative ng/mL (Negative) 11/15/24 18:38 Ethyl Alcohol < 10 mg/dL (0-10) 11/15/24 14:44 Coronavirus (PCR) Negative (Negative) 11/15/24 13:06 Influenza A (PCR) Negative (Negative) 11/15/24 13:06 Influenza Type B (PCR) Negative (Negative) 11/15/24 13:06 RSV (PCR) Negative (Negative) 11/15/24 13:06 EKG Data EKG 1: I personally reviewed and interpreted this EKG as follows: EKG interpretation date: 11/15/24 EKG interpretation time: 15:36 Interpretation: Atrial fibrillation, rate is controlled at 82. The patient has no ST segment elevation or depression or acute ischemic changes per medication Discharge Plan Discharge Patient Disposition: Admitted As Inpatient Clinical Impression: Altered mental status Condition: Fair Prescriptions: No Action potassium chloride 20 mEq tablet extended release 20 meq PO BID Qty: 60 2RF midodrine 10 mg tablet 10 mg PO TID Qty: 90 3RF Rx Instructions: do not give last dose of day after 6PM or within 4 hrs of bedtime furosemide 40 mg tablet 40 mg PO DAILY (DME) Cam boot to right See Rx Instructions .Route .MEDSUPPLY Qty: 1 0RF Rx Instructions: As directed cadexomer iodine 0.9 % gel 40 g topical ONCE 30 Days Qty: 40 3RF (DME) Diabetic Shoes with toe filler to right See Rx Instructions .Route .MEDSUPPLY Qty: 1 0RF Rx Instructions: As directed By CHAO&O Eliquis 5 mg tablet 5 mg PO BID tramadol 50 mg tablet 50 mg PO BID PRN (Reason: pain) Qty: 45 0RF baclofen 10 mg tablet 10 mg PO BID PRN (Reason: spasm) Qty: 60 0RF Breztri Aerosphere 160-9-4.8 mcg/actuation HFA aerosol inhaler 2 inh inhalation BID Qty: 10.7 12RF acetaminophen 500 mg Tablet 1,000 mg PO Q6H PRN (Reason: Pain) 14 Days Qty: 20 0RF pantoprazole [Protonix] 40 mg tablet,delayed release (DR/EC) 40 mg PO BID Qty: 60 3RF tamsulosin 0.4 mg Capsule 0.8 mg PO BEDTIME ipratropium-albuterol 0.5 mg-3 mg(2.5 mg base)/3 mL solution for nebulization 3 ml INHALATION QID PRN (Reason: Shortness Of Breath) Vitamin D3 50 mcg (2,000 unit) Tablet 50 mcg PO DAILY albuterol sulfate 90 mcg/actuation HFA aerosol inhaler 2 puff inhalation Q8H PRN (Reason: shortness of breath or wheezing) Cardizem 30 mg tablet 30 mg PO Q8H PRN (Reason: for heart rate greater than 120) Rx Instructions: for H/R > 120 topiramate 50 mg tablet 50 mg PO BID PRN (Reason: Pain) nitroglycerin 0.4 mg tablet, sublingual 0.4 mg sublingual Q5M PRN (Reason: chest pain) Qty: 25 0RF Rx Instructions: do not exceed 3 doses per episode Referrals: Chuy Baca DO [Primary Care Provider] - Patient Instructions: Altered Mental Status (ED) Coding Level of Care Code ED Integrated [employer] Programs Director for Chg Fwd Documented by User: John Berg DO 11/15/24 22:36 HPI - Altered Mental Status 2 General: Chief Complaint: Altered Mental Status Stated Complaint: gen. wealness / sleepness - confused Time Seen by Provider: 11/15/24 13:49 Related Data Home Medications Medication Instructions Recorded Confirmed tamsulosin 0.4 mg capsule 0.8 mg PO BEDTIME 06/21/22 10/01/24 apixaban 5 mg tablet (Eliquis) 5 mg PO BID 03/20/23 10/01/24 ipratropium 0.5 mg-albuterol 3 mg 3 ml inhalation QID PRN Shortness 03/20/23 10/01/24 (2.5 mg base)/3 mL nebulization Of Breath soln albuterol sulfate 90 mcg/actuation 2 puff inhalation Q8H PRN 05/14/23 10/01/24 aerosol inhaler shortness of breath or wheezing cholecalciferol (vitamin D3) 50 50 mcg PO DAILY 05/14/23 10/01/24 mcg (2,000 unit) tablet (Vitamin D3) diltiazem HCl 30 mg tablet 30 mg PO Q8H PRN for heart rate 05/14/23 10/01/24 (Cardizem) greater than 120 topiramate 50 mg tablet 50 mg PO BID PRN Pain 05/14/23 10/01/24 furosemide 40 mg tablet 40 mg PO DAILY 06/08/23 10/01/24 Previous Rx's Medication Instructions Recorded acetaminophen 500 mg tablet 1,000 mg (2 x 500 mg) PO Q6H PRN 10/22/22 Pain 14 days #20 tabs pantoprazole 40 mg tablet,delayed 40 mg PO BID #60 tabs 10/22/22 release (Protonix) Diabetic Shoes with toe filler to #1 ea 11/10/22 right baclofen 10 mg tablet 10 mg PO BID PRN spasm #60 tabs 05/02/23 potassium chloride 20 mEq 20 meq PO BID #60 tabs 05/02/23 tablet,extended release tramadol 50 mg tablet 50 mg PO BID PRN pain #45 tabs 05/02/23 nitroglycerin 0.4 mg sublingual 0.4 mg sublingual Q5M PRN chest 05/15/23 tablet pain #25 tabs midodrine 10 mg tablet 10 mg PO TID #90 tabs 06/07/23 budesonide 160 mcg-glycopyr 9 2 inh inhalation BID #10.7 grams 02/26/24 mcg-formot 4.8 mcg/actuation HFA inhaler (Breztri Aerosphere) Cam boot to right #1 ea 04/28/24 cadexomer iodine 0.9 % topical gel 40 g topical ONCE 30 days #40 grams 04/28/24 Allergies Allergy/AdvReac Type Severity Reaction Status Date / Time acetaminophen AdvReac Mild ADR-Dizzine Verified 10/01/24 15:05 [From Tylenol-Codeine #3] ss codeine AdvReac Mild ADR-Dizzine Verified 10/01/24 15:05 [From Tylenol-Codeine #3] PFSH ED 2 PFSH: Medical History Atrial fibrillation Diabetes mellitus Black tarry stools Melena Chronic anticoagulation Acute blood loss anemia Dehydration Shock Hypotension Atrial fibrillation with rapid ventricular response COPD (chronic obstructive pulmonary disease) Acute upper GI bleed Hyperglycemia COVID Hypoxemia COPD exacerbation Non-pressure 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 Dehiscence of amputation stump of right lower extremity Diabetic peripheral neuropathy associated with type 2 diabetes mellitus Surgical History 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 S/P foot surgery, right History of amputation of great toe Family History Denies family history of Cancer Social History Smoking and tobacco/nicotine status: current every day tobacco/nicotine user cigarettes Packs smoked per day: 1 Years cigarettes smoked: 53 [ Other cigarette details: Started at 1970] Course 2 Vital Signs: Vital signs: Vital Signs Temperature 97.6 F 11/15/24 13:35 Pulse Rate 105 H 11/15/24 21:08 Respiratory Rate 20 H 11/15/24 21:08 Blood Pressure 171/108 11/15/24 21:08 Pulse Oximetry 94 11/15/24 21:08 Oxygen Delivery Me thod Room Air 11/15/24 21:08 Oxygen Flow Rate 2 11/15/24 18:40 MDM - Altered Mental Status Medical Decision Making 74-year-old male with a history of diabetes, atrial fibrillation, COPD, previous GI bleed presents with altered mental status. EMS brought the patient and left him in the waiting room and did not check out anyone so history is very limited. Patient's unable to provide any history, speech is somewhat garbled. Patient became agitated shortly after arrival. He has required Ativan 1 mg IV, Haldol 5 mg IV, Zyprexa 10 mg IM and subsequently ketamine 100 mg IV for enough sedation to obtain a CT scan. Will obtain head CT as well as a chest x-ray. Will obtain CBC, CMP, Urinalysis, ammonia level, drug screen, Tylenol and aspirin levels, PT PTT, ABG, lactic acid. Will give the patient an IV fluid bolus. Laboratory studies are unremarkable with the exception of the urinalysis being pending at this time. The patient after ketamine is not sleeping. Urinalysis will have to be obtained. He also has a normal ammonia level. Chest x-ray and head CT showed no acute findings. Uncertain etiology for the patient's symptoms, suspect this may be advanced dementia. Discussed with the sister she states he has been confused for a while but it has been gradually getting worse, significantly worse over the past week and has not been sleeping. If the patient does not have a UTI, he may need geriatric psych placement. Received in checkout at shift change. This is a 74-year-old male as above. Mental status is not improved despite negative testing as above. He is significantly agitated. He had to be given Geodon again for agitation. He is resting comfortably now. His vitals remained stable off of oxygen. Spoke with the hospitalist. We have tried to call a couple of geriatric psychiatric facilities, but given the rapid onset of this patient's mental status change, without ability to get up on his own, he is not a candidate as yet for geriatric psychiatry. He will be admitted medically. Hospitalist will see the patient. Lab Data 11/15/24 14:44 11/15/24 14:44 Radiology Impressions Chest X-Ray 11/15/24 14:03 IMPRESSION: 1. Cardiomegaly. 2. Emphysematous changes. 3. Bibasilar atelectasis versus minimal infiltrate. Head CT 11/15/24 14:03 IMPRESSION: Negative for intracranial hemorrhage or mass effect. Laboratory Results WBC 11.84 10^3/uL (3.29-11.43) H 11/15/24 14:44 RBC 4.44 10^6/uL (3.85-5.65) 11/15/24 14:44 Hgb 12.80 g/dL (11.27-16.99) 11/15/24 14:44 Hct 38.2 % (37-53) 11/15/24 14:44 MCV 86.0 fl (82-101) 11/15/24 14:44 MCH 28.8 pg (27-33) 11/15/24 14:44 MCHC 33.5 g/dL (30-55) 11/15/24 14:44 RDW 14.9 % (12.1-15.1) 11/15/24 14:44 Plt Count 367 10^3/cmm (157-399) 11/15/24 14:44 MPV 9.5 fL (7.4-10.4) 11/15/24 14:44 Neut % (Auto) 63.9 % 11/15/24 14:44 Lymph % (Auto) 22.3 % 11/15/24 14:44 [place] % (Auto) 6.8 % 11/15/24 14:44 Eos % (Auto) 5.9 % 11/15/24 14:44 Baso % (Auto) 0.8 % 11/15/24 14:44 Neut # (Auto) 7.57 10^3/uL (1.8-7.7) 11/15/24 14:44 Lymph # (Auto) 2.6 10^3/uL (0.8-4.8) 11/15/24 14:44 [place] # (Auto) 0.8 10^3/uL (0.2-0.9) 11/15/24 14:44 Eos # (Auto) 0.7 10^3/uL (0.0-0.8) 11/15/24 14:44 Baso # (Auto) 0.1 10^3/uL (0.0-0.1) 11/15/24 14:44 Nucleated RBC % (auto) 0 % 11/15/24 14:44 Nucleated RBCs # 0.0 /100WBC 11/15/24 14:44 PT 13.60 SECONDS (12.1-14.9) 11/15/24 14:44 INR 0.97 (0.8-1.2) 11/15/24 14:44 APTT 34.2 SECONDS (23.9-36.7) 11/15/24 14:44 Specimen Type Arterial 11/15/24 15:00 Sample Site Radial, right 11/15/24 15:00 ABG pH 7.39 (7.35-7.45) 11/15/24 15:00 ABG pCO2 36.9 mmHg (35-45) 11/15/24 15:00 ABG pO2 82.1 mmHg (80.0-100.0) 11/15/24 15:00 ABG PO2/FiO2 Ratio 390 11/15/24 15:00 ABG HCO3 22.3 mmol/L (22-26) 11/15/24 15:00 ABG Base Excess -2.4 mmol/L (-2.0-2.0) L 11/15/24 15:00 Cesar Test Pos 11/15/24 15:00 Hematocrit 33.2 % (42-52) L 11/15/24 15:00 O2 Delivery Device None 11/15/24 15:00 FiO2 21.0 % 11/15/24 15:00 Greeting Card Editor ID [email or web address] 11/15/24 15:00 Sodium 136 mmol/L (136-145) 11/15/24 14:44 Potassium 3.8 mmol/L (3.5-5.1) 11/15/24 14:44 Chloride 101 mmol/L (98-107) 11/15/24 14:44 Carbon Dioxide 23 mmol/L (22-29) 11/15/24 14:44 Anion Gap 15.8 (5-19) 11/15/24 14:44 BUN 27 mg/dL (8-23) H 11/15/24 14:44 Creatinine 1.2 mg/dL (0.7-1.2) 11/15/24 14:44 GFR Calculation Not Reportable 11/15/24 14:44 Glucose 112 mg/dL (65-115) 11/15/24 14:44 Calculated Osmolality 288 mOsm/kg (285-295) 11/15/24 14:44 Calcium 9.0 mg/dL (8.5-10.5) 11/15/24 14:44 Magnesium 2.0 mg/dL (1.7-2.3) 11/15/24 14:44 Total Bilirubin 0.4 mg/dL (0.15-1.2) 11/15/24 14:44 AST 9 U/L (0-40) 11/15/24 14:44 ALT 10 U/L (0-41) 11/15/24 14:44 Alkaline Phosphatase 99 U/L (40-130) 11/15/24 14:44 Ammonia 20 umol/L (16-60) 11/15/24 14:44 Total Protein 6.4 g/dL (6.6-8.7) L 11/15/24 14:44 Albumin 3.9 g/dL (3.5-5.2) 11/15/24 14:44 Globulin 2.5 g/dL (1.3-4.6) 11/15/24 14:44 Urine Color Yellow (Yellow) 11/15/24 18:38 Urine Appearance Clear (CLEAR) 11/15/24 18:38 Urine pH 6.0 (5-7) 11/15/24 18:38 Ur Specific [place] 1.010 (1.005-1.030) 11/15/24 18:38 Urine Protein Negative (Negative) 11/15/24 18:38 Urine Glucose (UA) Negative (Normal) 11/15/24 18:38 Urine Ketones Negative (Negative) 11/15/24 18:38 Urine Blood Negative (Negative) 11/15/24 18:38 Urine Nitrate Negative (Negative) 11/15/24 18:38 Urine Bilirubin Negative (Negative) 11/15/24 18:38 Urine Urobilinogen 0.2 mg/dL (Negative) 11/15/24 18:38 Ur Leukocyte Esterase Negative (Negative) 11/15/24 18:38 Amorphous Sediment Not Reportable 11/15/24 18:38 Salicylates < 0.3 mg/dL (3-10) L 11/15/24 14:44 Urine Opiates Screen Negative ng/mL (Negative) 11/15/24 18:38 Acetaminophen < 5.0 ug/mL (10-30) L 11/15/24 14:44 Ur Barbiturates Screen Negative ng/mL (Negative) 11/15/24 18:38 Ur Phencyclidine Scrn Negative ng/mL (Negative) 11/15/24 18:38 Ur Amphetamines Screen Negative ng/mL (Negative) 11/15/24 18:38 U Benzodiazepines Scrn Negative ng/mL (Negative) 11/15/24 18:38 Urine Cocaine Screen Negative ng/mL (Negative) 11/15/24 18:38 U Marijuana (THC) Screen Negative ng/mL (Negative) 11/15/24 18:38 Ethyl Alcohol < 10 mg/dL (0-10) 11/15/24 14:44 Coronavirus (PCR) Negative (Negative) 11/15/24 13:06 Influenza A (PCR) Negative (Negative) 11/15/24 13:06 Influenza Type B (PCR) Negative (Negative) 11/15/24 13:06 RSV (PCR) Negative (Negative) 11/15/24 13:06 All radiology interpretation(s) finalized by discharge Discharge Plan Discharge Patient Disposition: Admitted As Inpatient Clinical Impression: Altered mental status Condition: Fair Prescriptions: No Action potassium chloride 20 mEq tablet extended release 20 meq PO BID Qty: 60 2RF midodrine 10 mg tablet 10 mg PO TID Qty: 90 3RF Rx Instructions: do not give last dose of day after 6PM or within 4 hrs of bedtime furosemide 40 mg tablet 40 mg PO DAILY (DME) Cam boot to right See Rx Instructions .Route .MEDSUPPLY Qty: 1 0RF Rx Instructions: As directed cadexomer iodine 0.9 % gel 40 g topical ONCE 30 Days Qty: 40 3RF (DME) Diabetic Shoes with toe filler to right See Rx Instructions .Route .MEDSUPPLY Qty: 1 0RF Rx Instructions: As directed By CHAO&O Eliquis 5 mg tablet 5 mg PO BID tramadol 50 mg tablet 50 mg PO BID PRN (Reason: pain) Qty: 45 0RF baclofen 10 mg tablet 10 mg PO BID PRN (Reason: spasm) Qty: 60 0RF Breztri Aerosphere 160-9-4.8 mcg/actuation HFA aerosol inhaler 2 inh inhalation BID Qty: 10.7 12RF acetaminophen 500 mg Tablet 1,000 mg PO Q6H PRN (Reason: Pain) 14 Days Qty: 20 0RF pantoprazole [Protonix] 40 mg tablet,delayed release (DR/EC) 40 mg PO BID Qty: 60 3RF tamsulosin 0.4 mg Capsule 0.8 mg PO BEDTIME ipratropium-albuterol 0.5 mg-3 mg(2.5 mg base)/3 mL solution for nebulization 3 ml INHALATION QID PRN (Reason: Shortness Of Breath) Vitamin D3 50 mcg (2,000 unit) Tablet 50 mcg PO DAILY albuterol sulfate 90 mcg/actuation HFA aerosol inhaler 2 puff inhalation Q8H PRN (Reason: shortness of breath or wheezing) Cardizem 30 mg tablet 30 mg PO Q8H PRN (Reason: for heart rate greater than 120) Rx Instructions: for H/R > 120 topiramate 50 mg tablet 50 mg PO BID PRN (Reason: Pain) nitroglycerin 0.4 mg tablet, sublingual 0.4 mg sublingual Q5M PRN (Reason: chest pain) Qty: 25 0RF Rx Instructions: do not exceed 3 doses per episode Referrals: Chuy Baca DO [Primary Care Provider] - Patient Instructions: Altered Mental Status (ED) Coding Level of Care Code ED 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
[2024-11-15 15:00] LABS: INR 0.97 (0.8-1.2)
[2024-11-15 15:01] LABS: Partial Thromboplastin Time 34.2 SECONDS (23.9-36.7)
[2024-11-15 15:05] LABS: Acetaminophen < 5.0 ug/mL (10-30); Alanine Aminotransferase 10 U/L (0-41); Albumin Level 3.9 g/dL (3.5-5.2); Alcohol Level < 10 mg/dL (0-10); Alkaline Phosphatase 99 U/L (40-130); Anion Gap 15.8 (5-19); Aspartate Amino Transferase 9 U/L (0-40); Blood Urea Nitrogen 27 mg/dL (8-23); Carbon Dioxide 23 mmol/L (22-29); Chloride 101 mmol/L (98-107); Creatinine Clr Calc Pharmacy 63.3157; Globulin 2.5 g/dL (1.3-4.6); Glucose 112 mg/dL (65-115); Osmolality Calculated 288 mOsm/kg (285-295); Potassium 3.8 mmol/L (3.5-5.1); Salicylate < 0.3 mg/dL (3-10); Sodium 136 mmol/L (136-145); Total Bilirubin 0.4 mg/dL (0.15-1.2); Total Protein 6.4 g/dL (6.6-8.7)
[2024-11-15 15:12] LABS: Ammonia 20 umol/L (16-60)
[2024-11-15 15:12] LABS: ABG PCO2 36.9 mmHg (35-45); ABG PH Result 7.39 (7.35-7.45); Arterial Blood Gas Hematocrit 33.2 % (42-52); Base Excess ABG -2.4 mmol/L (-2.0-2.0); Blood Gas Allen Test Pos; Blood Gas Operator Identificat glc; Blood Gas Sample Site Radial, right; Blood Gas Sample Type Arterial; HCO3 ABG 22.3 mmol/L (22-26); PO2 ABG 82.1 mmHg (80.0-100.0); PO2 FiO2 Ratio Arterial Blood 390
[2024-11-15 15:26] LABS: Influenza A NEGATIVE (Negative); Influenza B NEGATIVE (Negative); Respiratory Syncytial Virus Ce NEGATIVE (Negative); SARS-CoV-2 PCR NEGATIVE (Negative)
[2024-11-15] MEDS: haloperidol inj 5 mg/mL INJ 1 mL IVP (15:26)
[2024-11-15] MEDS: OLANZapine 10 mg VIAL IM (15:26)
[2024-11-15] MEDS: ketamine 100 mg/mL Inj 5 mL IVP (15:26)
[2024-11-15] MEDS: water for injection-sterile 10 ML (15:36)
--- NOTE | 2024-11-15 15:36 | ECG_ITS ---
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 Measurements Intervals [place] Rate: 82 P: 0 LA: 0 QRS: -27 QRSD: 104 T: 6 QT: 404 QTc: 474 Interpretive Statements ATRIAL FIBRILLATION INCOMPLETE RIGHT BUNDLE BRANCH BLOCK [90+ ms QRS DURATION, TERMINAL R IN V1/V2, 40+ ms S IN I/aVL/V4/V5/V6] MODERATE VOLTAGE CRITERIA FOR LVH, CONSIDER NORMAL VARIANT [MEETS CRITERIA IN ONE OF: R(aVL), S(V1), R(V5), R(V5/V6)+S(V1)] POSSIBLE ANTERIOR MYOCARDIAL INFARCTION , PROBABLY OLD [30 ms Q WAVE IN V3/V4, OR R < 0.2 mV IN V4] Compared to ECG 05/14/2023 13:51:24 Incomplete right bundle-branch block now present Myocardial infarct finding now present T-wave abnormality no longer present Electronically Signed On 11-20-2024 22:12:58 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 [id number] [email or web address]
[2024-11-15 16:23] VITALS: BP 123/71; PULSE 85; O2SAT 97
[2024-11-15 16:58] VITALS: BP 132/75; PULSE 79; O2SAT 94
[2024-11-15 18:40] VITALS: BP 130/78; PULSE 75; O2SAT 96
[2024-11-15 18:45] LABS: Add Urine Microscopic? NO
[2024-11-15 18:49] LABS: Bilirubin Urine Negative (Negative); Blood Urine Negative (Negative); Glucose Urine UA Negative (Normal); Ketones Urine Negative (Negative); Leukocyte Esterase Urine Negative (Negative); Nitrate Urine Negative (Negative); Protein Urine Negative (Negative); Urine Appearance Clear (CLEAR); Urine Color Yellow (Yellow); Urobilinogen Urine 0.2 mg/dL (Negative)
[2024-11-15 18:56] LABS: Amphetamines Screen Urine Negative (Negative); Barbiturates Screen Urine Negative (Negative); Benzodiazepines Screen Urine Negative (Negative); Cocaine Screen Urine Negative (Negative); Opiate Screen Urine Negative (Negative); PCP Screen Urine Negative (Negative); THC Screen Urine Negative (Negative)
[2024-11-15 19:12] LABS: Charge for UA Resulting for Rev
[2024-11-15] MEDS: ziprasidone 20 mg/mL SDV IM (20:58)
--- NOTE | 2024-11-15 20:59 | PC.NURSE ---
pt changed into gown and bed changed
[2024-11-15 21:08] VITALS: BP 171/108; PULSE 105; RESP 20; O2SAT 94
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
[2024-11-15 23:46] LABS: Thyroid Stimulating Hormone 1.43 uIU/mL (0.27-4.20)
[2024-11-16] VITALS (34 sets, daily range): BP systolic 102–160; BP diastolic 57–105; PULSE 87–140; RESP 17–29; TEMP 36.7–37.8; O2SAT 90–99; BMI 24.0
[2024-11-16 00:01] LABS: Alcohol Level < 10 mg/dL (0-10)
[2024-11-16 00:26] LABS: Ammonia 34 umol/L (16-60)
[2024-11-16 00:31] LABS: Vitamin B12 435 pg/mL (232-1245)
[2024-11-16] MEDS: LORazepam 2 mg/mL INJ 1 mL 0.5 MG IVP ×3 (03:45→16:46)
[2024-11-16 05:23] LABS: ABG PCO2 47.1 mmHg (35-45); ABG PH Result 7.35 (7.35-7.45); HCO3 ABG 26.1 mmol/L (22-26); PO2 ABG 22.2 mmHg (80.0-100.0); PO2 FiO2 Ratio Arterial Blood 105
[2024-11-16 05:24] LABS: Arterial Blood Gas Hematocrit 42.6 % (42-52); Blood Gas Allen Test POS; Blood Gas Sample Site RB; Blood Gas Sample Type VENOUS; Oxygen Device RA
[2024-11-16 05:53] LABS: Basophils # 0.1 10^3/uL (0.0-0.1); Basophils % 0.4 %; Eosinophils # 0.2 10^3/uL (0.0-0.8); Eosinophils % 1.5 %; Hematocrit 40.1 % (37-53); Lymphocytes # 1.8 10^3/uL (0.8-4.8); Mean Corpuscular HGB Conc 32.4 g/dL (30-55); Mean Corpuscular Hemoglobin 28.4 pg (27-33); Mean Corpuscular Volume 87.6 fl (82-101); Mean Platelet Volume 9.7 fL (7.4-10.4); Monocytes # 0.7 10^3/uL (0.2-0.9); Monocytes % 5.4 %; Neutrophils # 10.75 10^3/uL (1.8-7.7); Neutrophils % 79.4 %; Nucleated Red Blood Cells % 0 %; Platelet Count 306 10^3/cmm (157-399); Red Blood Count 4.58 10^6/uL (3.85-5.65); White Blood Count 13.55 10^3/uL (3.29-11.43)
[2024-11-16 06:17] LABS: Anion Gap 15.6 (5-19); Blood Urea Nitrogen 23 mg/dL (8-23); Calcium 9.1 mg/dL (8.5-10.5); Carbon Dioxide 24 mmol/L (22-29); Chloride 105 mmol/L (98-107); Creatinine Clr Calc Pharmacy 69.0717; Glucose 121 mg/dL (65-115); Magnesium 2.1 mg/dL (1.7-2.3); Osmolality Calculated 297 mOsm/kg (285-295); Potassium 3.6 mmol/L (3.5-5.1); Sodium 141 mmol/L (136-145)
--- NOTE | 2024-11-16 06:35 | PC.NURSE ---
upon rounding on pt pt is able to speak in broken sentences. rn asked pt if he wanted a blanket and he was able to state yes. beyond 1-2 words speech was incomprehensible. pt somewhat redirectable. rn stated that sister in chart was updated and pt said thanks.
[2024-11-16] MEDS: apixaban 5 mg Tablet PO (08:51)
[2024-11-16] MEDS: thiamine 100 mg/mL 2mL SDV IVP (08:55)
[2024-11-16 12:11] LABS: Erythrocyte Sedimentation Rate 9 mm/hr (0-10)
[2024-11-16 12:20] LABS: C Reactive Protein 11.7 mg/L (0.0-4.9)
[2024-11-16 12:25] LABS: Procalcitonin 0.03 ng/mL (0-0.5)
[2024-11-16 12:51] LABS: Glucose Point of Care 114 mg/dL (70-110)
[2024-11-16] MEDS: haloperidol inj 5 mg/mL INJ 1 mL 1 MG IM ×2 (13:02→19:12)
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
[2024-11-16 13:55] LABS: Ferritin 129 ng/mL (30-400); Iron 39 ug/dL (59-158)
[2024-11-16 14:04] LABS: Hepatitis A Antibody IgM Non-Reactive (Nonreactive); Hepatitis B Core IgM Non-Reactive (Nonreactive); Hepatitis B Surface Antigen Non-Reactive (Nonreactive); Hepatitis C Virus Antibody Non-Reactive (Nonreactive)
[2024-11-16 14:08] LABS: HIV 1 & 2 Antibody Non-Reactive (Non-Reactiv); HIV 1 & 2 Antigen Non-Reactive (Non-Reactiv)
--- NOTE | 2024-11-16 14:26 | PC.PHAR ---
Addendum entered by Oksana Clifford 11/16/24 16:22: I found Patient's bag of medications and documented the ones in the bag that was on his hospital medlist . Patient did have a few medications not on his list in which are ,hydrochlorothiazide 25mg 1 tab daily, and a Metoprolol tartrate 100 1/2 tablet tid. [facility] . Original Note: Spoke to Patient's sister adn she stated a few medications she is aware that the Patient takes. Patient's sisiter also stated she sent his medication with patient on the Ambulance in a bag. [facility] on Sunday
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
--- NOTE | 2024-11-16 15:30 | PC.NURSE ---
Dr. Davila contacted via phone due to pt agitation and heart rate. stated pt has a hx of afib and should be started on Amiodarone drip. EKG completed. CSU obtained and pt tx to CSU. Dr. Davila contacted about amiodarone order, requested to to order amiodarone drip, order placed.
[2024-11-16] MEDS: amiodarone 150 MG/100 ML PREMIX 400 MG IV (15:43)
[2024-11-16 16:16] LABS: ABG PCO2 32.6 mmHg (35-45); ABG PH Result 7.42 (7.35-7.45); Alveolar-Arterial Oxygen Gradi 4.6 mmHg (5-10); Arterial Blood Gas Hematocrit 39.7 % (42-52); Base Excess ABG -2.7 mmol/L (-2.0-2.0); Blood Gas Operator Identificat AMH; Blood Gas Sample Site Brachial, left; Blood Gas Sample Type Arterial; Carboxyhemoglobin 1.2 %THgb (0.4-20.1); HGB O2 Sat 95.2 % (95-100); Ionized Calcium Level - ABG 1.2 mmol/L (1.1-1.4); Methemoglobin < 0.0 % (0.4-1.5); Oxygen Device ROOM AIR; Oxygen Saturation ABG 96.3; PO2 ABG 72.5 mmHg (80.0-100.0); PO2 FiO2 Ratio Arterial Blood 345; Potassium Level - ABG 3.4 mmol/L (3.5-5.0)
--- NOTE | 2024-11-16 16:30 | PC.NURSE ---
Agitation- sitter at bedside. Pt noted to be grimacing and keep touching his penis with bobo catheter, penile area already is bleeding. When asked if pt has pain, he verbalizes, yes. Notified Dr Davila via phone, received telephone orders read back to give 0.5mg dose of Ativan IVP once and 2mg IVP morphine.
--- NOTE | 2024-11-16 16:43 | P.PHAVANC_ITS ---
Vancomycin Goal - Goal Vancomycin Goal:: 15-20 mg/L Vancomycin Indication:: Other - Therapy Day of therpy:: Day []of [] . Actual body weight (kg): 185 lb - Data Labs: WBC 13.55 10^3/uL (3.29-11.43) H 11/16/24 05:48 RBC 4.58 10^6/uL (3.85-5.65) 11/16/24 05:48 Hgb 13.00 g/dL (11.27-16.99) 11/16/24 05:48 Hct 40.1 % (37-53) 11/16/24 05:48 MCV 87.6 fl (82-101) 11/16/24 05:48 MCH 28.4 pg (27-33) 11/16/24 05:48 MCHC 32.4 g/dL (30-55) 11/16/24 05:48 RDW 15.0 % (12.1-15.1) 11/16/24 05:48 Sodium 141 mmol/L (136-145) 11/16/24 05:48 Potassium 3.6 mmol/L (3.5-5.1) 11/16/24 05:48 Chloride 105 mmol/L (98-107) 11/16/24 05:48 Carbon Dioxide 24 mmol/L (22-29) 11/16/24 05:48 Anion Gap 15.6 (5-19) 11/16/24 05:48 BUN 23 mg/dL (8-23) 11/16/24 05:48 Creatinine 1.1 mg/dL (0.7-1.2) 11/16/24 05:48 GFR Calculation Not Reportable 11/16/24 05:48 Treatment plan:: new consult Regimen:: NO CLEAR DX; POSSIBLE TOOLS AND PARTS ATTENDANT INFECTION; EMPERIC LOAD WITH 2000 MG AND CONTINUE 1000MG Q12H
[2024-11-16] MEDS: morphine 4 mg/mL SDV 1 mL 2 MG IVP (16:46)
[2024-11-16] MEDS: vancomycin 2,000 MG/400 ML PIGGYBACK 200 MG IV (16:47)
[2024-11-16] MEDS: acetaminophen 650 mg Supp PR (16:50)
[2024-11-16 17:37] LABS: Glucose Point of Care 128 mg/dL (70-110)
--- NOTE | 2024-11-16 18:00 | PC.NURSE ---
Pt still agitated,restless, keep pulling IV's and bobo catheter,attempting to get up in bed but unable to communicate what he wants. When asked if he has any pain, he verbalizes, No. When asked what he needs, he verbalizes, i don't know. Called Dr. Davila via phone and received orders to give Ativan 1 mg once IVP then after 15 mins if no response to give 1 mg Haldol, if no response, apply soft restraints.
[2024-11-16] MEDS: LORazepam 2 mg/mL INJ 1 mL 1 MG IVP (18:14)
[2024-11-16] MEDS: piperacillin-tazobactam 3.375 GM in sodium chloride 0.9% (plus) 50 ML IV (18:36)
--- NOTE | 2024-11-16 19:00 | PC.NURSE ---
Applied soft limb wrist restraints as ordered pt still not responding after IV meds given for agitation. Per order from hospitalist to apply soft restraints for pt's safety and prevention of more trauma around his bobo catheter, penis and IV lines.
--- NOTE | 2024-11-16 19:44 | PC.NURSE ---
Spoke with regarding patient with agitation, kicking, and attempting to pull out ivs and bobo. Patient has received medications for agitation since arriving on the floor including haldol, morhine, and ativan and has also required soft wrist restraints and 1:1 sitter. ordered one time dose of IM Zyprexa.
[2024-11-16] MEDS: OLANZapine 10 mg VIAL IM (20:15)
[2024-11-16 21:06] LABS: Glucose Point of Care 124 mg/dL (70-110)
[2024-11-17] VITALS (32 sets, daily range): BP systolic 109–153; BP diastolic 61–96; PULSE 77–118; RESP 14–26; TEMP 36.7–37.2; O2SAT 88–100
[2024-11-17] MEDS: morphine 4 mg/mL SDV 1 mL 2 MG IVP (01:07)
[2024-11-17] MEDS: LORazepam 2 mg/mL INJ 1 mL 0.5 MG IVP (01:08)
[2024-11-17 02:32] LABS: Basophils # 0.1 10^3/uL (0.0-0.1); Basophils % 0.7 %; Eosinophils # 0.3 10^3/uL (0.0-0.8); Eosinophils % 2.5 %; Lymphocytes # 1.8 10^3/uL (0.8-4.8); Lymphocytes % 14.4 %; Mean Corpuscular Hemoglobin 28.1 pg (27-33); Mean Corpuscular Volume 90.7 fl (82-101); Mean Platelet Volume 9.6 fL (7.4-10.4); Monocytes % 8.4 %; Neutrophils # 8.99 10^3/uL (1.8-7.7); Neutrophils % 73.7 %; Nucleated Red Blood Cells % 0 %; Platelet Count 277 10^3/cmm (157-399); Red Cell Distribution Width 15.4 % (12.1-15.1); White Blood Count 12.19 10^3/uL (3.29-11.43)
[2024-11-17] MEDS: piperacillin-tazobactam 3.375 GM in sodium chloride 0.9% (plus) 50 ML IV ×3 (02:34→19:47)
[2024-11-17 02:53] LABS: Alanine Aminotransferase 14 U/L (0-41); Albumin Level 3.6 g/dL (3.5-5.2); Alkaline Phosphatase 95 U/L (40-130); Anion Gap 17.5 (5-19); Aspartate Amino Transferase 27 U/L (0-40); Blood Urea Nitrogen 25 mg/dL (8-23); Calcium 8.7 mg/dL (8.5-10.5); Carbon Dioxide 20 mmol/L (22-29); Chloride 109 mmol/L (98-107); Creatinine Clr Calc Pharmacy 63.5928; Globulin 2.5 g/dL (1.3-4.6); Glucose 118 mg/dL (65-115); Magnesium 2.2 mg/dL (1.7-2.3); Osmolality Calculated 301 mOsm/kg (285-295); Phosphorus 2.1 mg/dL (2.5-4.5); Potassium 3.5 mmol/L (3.5-5.1); Sodium 143 mmol/L (136-145); Total Bilirubin 0.4 mg/dL (0.15-1.2); Total Protein 6.1 g/dL (6.6-8.7)
[2024-11-17 02:56] LABS: Lactate (Lactic Acid level) 0.9 mmol/L (0.5-2.2)
[2024-11-17] MEDS: VANCOMYCIN ADD-Vantage 1,000 MG in 0.9% NaCl ADD-Vantage 250 ML 250 MG IV ×2 (05:10→16:16)
[2024-11-17 06:25] LABS: Glucose Point of Care 119 mg/dL (70-110)
[2024-11-17] MEDS: ipratropium-albuterol 3 mL Neb INHALATION ×4 (08:37→20:59)
--- NOTE | 2024-11-17 08:53 | PC.NURSE ---
off on soft wrist restraints pt is more calm, still anxious, able to follow simple commands, not pulling on bobo catheter or IV.
[2024-11-17] MEDS: LORazepam 2 mg/mL INJ 1 mL 1 MG IVP ×3 (09:37→22:25)
[2024-11-17] MEDS: thiamine 100 mg/mL 2mL SDV IVP (10:11)
[2024-11-17 12:03] LABS: Glucose Point of Care 103 mg/dL (70-110)
--- NOTE | 2024-11-17 13:03 | USCV_ITS ---
Jace Christie Age: 74 Gender: M : 1950 Exam Date: 11/17/2024 08:56 Ordering Phys: Stevie Davila MD Technologist: Exam Location: [facility] [place] Indication: ams BP: 137 / 60 HR: 84 Rhythm: Sinus Technical Quality: Adequate MEASUREMENTS (Male / Female) Normal Values 2D ECHO LV Diastolic Diameter PLAX 4.7 cm 4.2 - 5.9 / 3.9 - 5.3 cm IVS Diastolic Thickness 1.1 cm 0.6 - 1.0 / 0.6 - 0.9 cm IVS Systolic Thickness 1.5 cm LVPW Diastolic Thickness 1.2 cm 0.6 - 1.0 / 0.6 - 0.9 cm LVPW Systolic Thickness 1.6 cm LVOT Diameter 2.0 cm LV Ejection Fraction 2D Teich 63.3 % LV Ejection Fraction MOD 4C 52.9 % LV Ejection Fraction MOD 2C 66.6 % LV Ejection Fraction 2C AL 67.2 % LA Diameter 4.4 cm RA Systolic Volume 4C AL 75.8 ml RA Systolic Volume 4C MOD 78.2 ml Aorta at Sinotubular Diameter 3.3 cm IVC Diameter 1.8 cm M-MODE LA Ao Ratio MM 1.0 AV Cusp Separation MM 2.8 cm DOPPLER AV Peak Velocity 149.0 cm/s LVOT Peak Velocity 102.0 cm/s AV Area Cont Eq vti 2.5 cm squared AV Area Cont Eq pk 2.2 cm squared MV Area PHT 3.3 cm squared Mitral E to A Ratio 1.3 TV Peak Velocity 212.0 cm/s TR Peak Velocity 232.0 cm/s TR Peak Gradient 21.5 mmHg TV Peak E Velocity 87.0 cm/s PV Peak Velocity 133.0 cm/s FINDINGS Left Ventricle Left ventricle is normal in size. LV systolic function is normal with EF of 55-60%. No regional wall motion abnormalities seen. Right Ventricle Normal in size and function Right Atrium Dilated Left Atrium Dilated Mitral Valve Structurally normal mitral valve. Mild mitral regurgitation Aortic Valve Structurally normal aortic valve. No significant stenosis or regurgitation. Tricuspid Valve Insufficient TR jet to calculate RVSP Pulmonic Valve Not well visualized Pericardium Normal Aorta Aortic root is mildly dilated IVC Not well visualized CONCLUSIONS LV systolic function is normal with EF of 55-60% Mild mitral regurgitation Aortic root is mildly dilated Biatrial dilation Compared to prior echocardiogram from 2022, no significant changes are seen. Shilo Bagley MD (Electronically Signed) Final Date: 18 November 2024 21:11 S
--- NOTE | 2024-11-17 13:03 | CT_ITS ---
WS: [id number] CT CHEST, ABDOMEN AND PELVIS NONCONTRAST HISTORY: ams, confusion TECHNIQUE: Contiguous 5 mm axial imaging performed through the chest, abdomen and pelvis without IV c ontrast, oral contrast has not been provided. Coronal and sagittal reformats chest. Coronal and sagit pascual reformats through the abdomen and pelvis. All CT scans at [facility] use at least one of these dose optimization techniques: automated exposure control; mA and/or kV adjustment per patient s ize (includes targeted exams where dose is matched to clinical indication); or iterative reconstructi on. CONTRAST: None DLP: 1062.15 mGy.cm COMPARISON: Chest CT 09/22/2024, 05/14/2023, 08/25/[address]: Reidentified is a spiculated nodule with pleural tagging in the RIGHT upper lobe similar in size to 09/22/2024 but decreased since 05/14/2023. Hazy opacification involving the inferior segment o f the LEFT upper lobe and the superior segment of the LEFT lower lobe. Pulmonary opacifications exten d to the pleural surface. Opacifications are at the site of the LEFT rib splaying, this may be a prio r thoracotomy site. Moderate heart enlargement. Moderate atherosclerotic plaque throughout the thoracic aorta. Mildly dil ated pulmonary artery. No adenopathy. Mild anterior wedging of T12 and L1. Abdomen CT: Hepatic cyst. LEFT hepatic cyst measures 3.7 cm. No intrahepatic duct dilatation is ident ified. Gallbladder is mildly hydropic with layering sludge or stones. Common bile duct is poorly visu alized due to motion. Mild pancreatic atrophy. Normal spleen. Moderate bilateral perinephric strandin g with bilateral renal cysts. No renal obstruction. Mild ectasia abdominal aorta with atherosclerosis . Multifocal ventral abdominal wall hernias extend over a length of 6.1 cm and extends supraumbilical to the level of the umbilicus. Hernias contain fat only. No GI tract obstruction. Diverticular burden in the distal colon. No acute diverticulitis. No free fl uid. No adenopathy. Pelvic CT: Ash catheter is present in a nondistended bladder. Bladder wall thickening. Prostate hyp ertrophy. Degenerative rotary scoliosis lumbar spine. CT/[place] [id number] IMPRESSION: 1. Quality is compromised by breathing motion artifact and movement. 2. Stable spiculated nodule with pleural tagging in the RIGHT upper lobe. 3. New opacifications consistent with pneumonia LEFT upper lobe and LEFT lower lobes. 4. Mildly hydropic gallbladder with layering stones or stones. This can be fur ther evaluated by ultrasound if thought clinically necessary. 5. Numerous bilateral renal cysts with no renal obstruction. 6. Multiple supraumbilical abdominal wall hernias contain fat only. 7. Diverticulosis without acute diverticulitis. 8. Ash catheter present in a nondistended bladder. Marked distention of the bladder wall be due to chronic outlet obstruction.
--- NOTE | 2024-11-17 13:03 | USCV_ITS ---
Jace Christie Age: 74 Gender: M : 1950 Exam Date: 11/17/2024 09:08 Ordering Phys: Stevie Davila MD Technologist: Exam Location: [facility] [place] Indication: ams Risk Factors: Previous Vascular Surgery: Right Brachial BP: / Left Brachial BP: / Right Left Velocity (cm/s) Spectral Plaque Velocity (cm/s) Spectral Plaque Syst/Diast Broadening Syst/Diast Broadening 68.70/ 12.90 Prox CCA 49.90 / 11.20 75.00/ 16.70 Mid CCA 49.30 / 5.80 34.90/ 11.50 Distal CCA 33.60 / 11.80 81.50/ 14.10 Prox ICA 56.50 / 15.80 86.70/ 23.20 Mid ICA 65.40 / 14.00 90.60/ 19.30 Distal ICA 86.70 / 26.40 ECA 97.30 2.60 ICA/CCA 2.60 Antegrade Vertebral Antegrade 56.50/ 12.70 cm/s 65.00/ 10.40 cm/s Bi Subclavian Bi 163.7 0 FINDINGS Comparison: none available. Diffuse bilateral scattered calcified plaque and intimal thickening throughout the common carotid arteries and extending through the bifurcation. No significant elevation of systolic or diastolic velocities. CONCLUSIONS Bilateral ICA stenosis less than 50%. Moderate carotid atherosclerosis. Irregular plaque at the bifurcations. Dr. Selina Monterroso DO (Electronically Signed) Final Date: 17 November 2024 14:45 S
--- NOTE | 2024-11-17 13:03 | PC.SOCIAL ---
IMM Updated Updated pt's sister on IMM. No questions voiced. Provided pt a copy. Initialed, dated, & timed a copy & placed in chart.
[2024-11-17] MEDS: nystatin 100,000 unit/mL UDC 5 mL 100000 UNIT PO ×3 (14:05→21:34)
[2024-11-17] MEDS: nicotine 14 mg Patch 1 PATCH TRANSDERMA (14:05)
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
[2024-11-17 17:37] LABS: Glucose Point of Care 135 mg/dL (70-110)
[2024-11-17] MEDS: water for injection-sterile 10 ML (17:58)
[2024-11-17] MEDS: OLANZapine 10 mg VIAL 5 MG IM ×2 (17:59→23:56)
[2024-11-17 20:35] LABS: Glucose Point of Care 135 mg/dL (70-110)
[2024-11-17] MEDS: tamsulosin 0.4 mg Capsule 0.8 MG PO (21:27)
[2024-11-18] VITALS (15 sets, daily range): BP systolic 129–149; BP diastolic 74–98; PULSE 90–119; RESP 18–36; TEMP 36.1–36.9; O2SAT 92–98; BMI 23.9
[2024-11-18] MEDS: ipratropium-albuterol 3 mL Neb INHALATION ×5 (00:39→19:28)
[2024-11-18] MEDS: piperacillin-tazobactam 3.375 GM in sodium chloride 0.9% (plus) 50 ML IV ×2 (02:48→18:07)
[2024-11-18] MEDS: VANCOMYCIN ADD-Vantage 1,000 MG in 0.9% NaCl ADD-Vantage 250 ML 250 MG IV (05:15)
[2024-11-18 05:28] LABS: Erythrocyte Sedimentation Rate 16 mm/hr (0-10)
[2024-11-18 05:34] LABS: Basophils # 0.1 10^3/uL (0.0-0.1); Basophils % 0.6 %; Eosinophils # 0.5 10^3/uL (0.0-0.8); Eosinophils % 5.4 %; Hematocrit 34.7 % (37-53); Lymphocytes # 1.5 10^3/uL (0.8-4.8); Lymphocytes % 15.8 %; Mean Corpuscular HGB Conc 32.9 g/dL (30-55); Mean Corpuscular Volume 88.3 fl (82-101); Mean Platelet Volume 10.2 fL (7.4-10.4); Monocytes # 0.7 10^3/uL (0.2-0.9); Monocytes % 7.4 %; Neutrophils # 6.84 10^3/uL (1.8-7.7); Neutrophils % 70.4 %; Nucleated Red Blood Cells % 0 %; Platelet Count 272 10^3/cmm (157-399); Red Blood Count 3.93 10^6/uL (3.85-5.65); Red Cell Distribution Width 15.3 % (12.1-15.1); White Blood Count 9.73 10^3/uL (3.29-11.43)
--- OUTSIDE RECORDS SUMMARY | 2024-11-18 05:43 | XMS_ITS | Encounter Summary ---
Author Organization [facility] [employer] Address [address] [place] [address] Care Team Providers Care Machine Stamper Name Role Phone Unavailable Primary Care Provider Unavailabl e Encounter Details Date Type Department Care Team (Late Contact Info) Description 11/12/2024 External Device Data [facility] Provider, Abstract NO ADDRESS ON FILE Social History Tobacco Use Types Packs/Day Years Used Date Smoking Tobacco: Every Day Cigarettes Smokeless Tobacco: Never Alcohol Use Standard Drinks/Week Comments Not Currently 0 (1 standard drink = 0.6 oz pur e alcohol) Feeling Safe Answer Date Recorded Are you in a relationship wi th someone who hurts you emotionally and/or physically? 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
--- OUTSIDE RECORDS SUMMARY | 2024-11-18 05:43 | XMS_ITS | Encounter Summary ---
Author Organization [employer] Address [address] [place] [address] Care Team Providers Care Material Reprocessing Associate Name Role Phone Unavailable Primary Care Provider Unavailabl e Encounter Details Date Type Department Care Team (Late st Contact Info) Description 11/06/2024 External Device Data [facility] Provider, Abstract [...] on file Legal Sex Male 7:21 AM SLAB PULLER Gender Identity Not on file Sexual Orientation Not on file documented as of this encounter Plan of Treatment Upcoming Encounters Date Type Department Care Team (Late Contact Info) Description 09/01/2025 2:00 PM SLAB PULLER Telemed [employer] [facility] - [place] [address] [place] [phone] Tayler Escamilla NP [address] [place] [address] documented as of this encounter Visit Diagnoses Not on filedocumented in this encounter
--- OUTSIDE RECORDS SUMMARY | 2024-11-18 05:43 | XMS_ITS | Clinical Summary ---
Author Organization [facility] Address [address] [place] [address] Phone Care Team Providers Care Cut Off Machine Helper Name Role Phone Unavailable Primary Care Provider Unavailabl e Allergies Active Allergy Reactions Criticality Noted Date Comments Codeine Dizziness,Nausea and Vomiting Medium 2022 Medications FLUTICASONE PROPIONATE INHALATION Take by inhalation. Active potassium chloride (KLOR-CON) 20 mEq Extended Release tablet Take 20 mEq by mouth daily. Active apixaban (Eliquis) 5 mg tablet Take 5 mg by mouth 2 times daily. Active tamsulosin (FLOMAX) 0.4 mg capsule Take 0.4 mg by mouth daily. Active pantoprazole (PROTONIX) 40 mg Tablet, Delayed Release (E.C.) Take 40 mg by mouth daily. Active furosemide (LASIX) 40 mg tablet Take 40 mg by mouth daily. Active overnight pulse oximetry Overnight pulse oximetry: One time overnight pulse oximetry test on room air. 1 Each 3 Active baclofen (LIORESAL) 10 mg tablet Take 10 mg by mouth 2 times daily. Active gabapentin (NEURONTIN) 100 mg capsule Take 100 mg by mouth 3 times daily. Active midodrine (PROAMATINE) 5 mg tablet Take 5 mg by mouth 3 times daily. 2 tabs Active ipratropium-albut Aretha (DUONEB) 0.5 mg-3 mg(2.5 mg base)/3 mL Solution for Nebulization Take 3 mL by inhalation every 6 hours as needed for Shortness of Breath. Active Breztri Aerosphere 160 mcg-9mcg-4.8mcg/a ctuation HFA aerosol inhalerIndication s:Chronic obstructive pulmonary disease, unspecified COPD type (CMS/HCC) Take 2 Puffs by inhalation 2 times daily. 10.7 Gram 11 4 Active Active Problems Problem Noted Date Diagnosed Date Chronic obstructive pulmonary disease 03/26/2023 Cigarette nicotine dependence in remission 03/26 Encounters Date Type Department Care Team Description 11/12/2024 External Device Data [facility] Provider, Abstract 11/06/2024 External Device Data [facility] Provider, Abstract 09/02/2024 10:00 AM COMMUNITY RECREATION COORDINATOR [facility] - [place] [address] [facility] [address] [place] [phone] Tayler Escamilla NP Moderate COPD (chronic obstructive pulmonary disease) (CMS/HCC) (Primary Dx); Current smoker; Chronic obstructive pulmonary disease, unspecified COPD type (CMS/HCC) from Last 3 Months Social History Tobacco Use Types Packs/Day Years Used Date Smoking Tobacco: Every Day Cigarettes Smokeless Tobacco: Never Tobacco Cessation:Ready to Q uit: No; Counseling Given: Yes Alcohol Use Standard Drinks/Week Comments Not Currently 0 (1 standard drink = 0.6 oz pur e alcohol) Feeling Safe Answer Date Recorded Are you in a relationship wi th someone who hurts you emotionally and/or physically? No 01/22/2023 Sex and Gender Information Value Date Recorded Sex Assigned at Not on file Legal Sex Male 7:21 AM COMMUNITY RECREATION COORDINATOR Gender Identity Not on file Sexual Orientation Not on file Last Filed Vital Signs Vital Sign Reading Time Taken Comments Blood Pressure 158/88 09/02/2024 10:30 AM COMMUNITY RECREATION COORDINATOR Pulse 114 09/02/2024 10:30 AM COMMUNITY RECREATION COORDINATOR Temperature 37 ??C (98.6 ??F) 09/02/2024 10:30 AM COMMUNITY RECREATION COORDINATOR Respiratory Rate 20 09/02/2024 10:30 AM COMMUNITY RECREATION COORDINATOR Oxygen Saturation 95% 03/15/2023 3:56 PM CDT Inhaled Oxygen Concentration - - Weight 84 kg (185 lb 3.2 oz) 09/02/2024 10:30 AM COMMUNITY RECREATION COORDINATOR Height 188 cm (6' 2 ) 09/02/2024 10:30 AM COMMUNITY RECREATION COORDINATOR Body Mass Index 23.78 09/02/2024 10:30 AM COMMUNITY RECREATION COORDINATOR Plan of Treatment Upcoming Encounters Date Type Department Care Team (Late st Contact Info) Description 09/01/2025 2:00 PM COMMUNITY RECREATION COORDINATOR [facility] - [place] [address] [facility] [address] [place] [phone] Tayler Escamilla, HANSEL [address] [place] [phone] Health Maintenance Due Date Last Done Comments DIABETES ANNUAL FOOT EXAM 1968 DIABETES ANNUAL RETINAL EXAM 1968 DIABETES MICROALBUMIN ANNUAL SCREEN 1968 LDL CHOLESTEROL ANNUAL 1968 FIT-DNA Q 3 years 1995 FIT/FOBT Q 1 year 1995 Flex Sig/CT Colonography Q 5 years 1995 RSV VACCINE (60+ or ) (1 - Risk 60-74 years 1-dose series) 2010 Abdominal Aortic Aneurysm (A AA) Screening 2015 DIABETES HBA1C Q 6 MONTHS 02/28/2024 08/30/2023, 07/2023 INFLUENZA VACCINE (#1) 2024 , 10/23/2019, 10/19/2019, Additional history exists COVID-19 Vaccine ( - 2023-2 5 season) 2024 12/07/2021, 06/14/2021, 05/18/2021 COLORECTAL SCREENING 05/18/2025 05/18/2015 Colorectal Cancer Screening 05/18/2025 DTAP/TDAP/TD VACCINES (3 - T d or Tdap) 09/03/2033 09/03/2023, 07/07/2014 ZOSTER VACCINE Completed 05/29/2019, 03/26/2019 PNEUMOCOCCAL VACCINE 65+ YEARS Completed 0 10/21/2019, 12/23/2015, 04/25/2014 Procedures Procedure Name Priority Date/Time Associated Diagnosis Comments HEMOGLOBIN A1C Stat 01/22/2023 2:05 PM CDT from Last 3 Months or Most Recently Relevant to Health Maintenance Results * (ABNORMAL) HEMOGLOBIN A1C (01/22/2023 2:05 PM CDT) HEMOGLOBIN A1C 9.2(H) <=5.6 % 01/22/2023 3:40 PM CDT [facility] EST. AVG GLUCOSE, A1C 217 mg/dL 01/22/2023 3:40 PM CDT [facility] Blood BLOOD SPECIMEN / Unknown Collection / Unknown 01/22/2023 2:05 PM CDT 01/22/2023 3:17 PM CDT Narrative [facility] - 01/22/2023 3:40 PM CDT HGB A1C INTERPRETATION NORMAL: ? <5.7% PRE-DIABETES: 5.7 - 6.4% DIABETES: ? 6.5% OR GREATER us Ronald Jackson II, MD CHEMISTRY ORDERABLES Final Result [facility] CLIA # [id number] [address] [place] [address] from Last 3 Months or Most Recently Relevant to Health Maintenance Insurance * Guarantor: [employer] Account Type Relation to Patient Date of Phone Billing Address Corporate Other DEFAULT ADDRESS [place] [id number] [facility] [address] [place] [address] [address] [employer]
[2024-11-18 05:53] LABS: Alanine Aminotransferase 14 U/L (0-41); Albumin Level 3.3 g/dL (3.5-5.2); Alkaline Phosphatase 90 U/L (40-130); Aspartate Amino Transferase 17 U/L (0-40); Blood Urea Nitrogen 17 mg/dL (8-23); Calcium 8.2 mg/dL (8.5-10.5); Carbon Dioxide 20 mmol/L (22-29); Chloride 109 mmol/L (98-107); Creatinine Clr Calc Pharmacy 75.1472; Globulin 2.3 g/dL (1.3-4.6); Glucose 109 mg/dL (65-115); Magnesium 1.9 mg/dL (1.7-2.3); Osmolality Calculated 296 mOsm/kg (285-295); Phosphorus 1.9 mg/dL (2.5-4.5); Sodium 142 mmol/L (136-145); Total Bilirubin 0.5 mg/dL (0.15-1.2); Total Protein 5.6 g/dL (6.6-8.7)
[2024-11-18 05:56] LABS: Lactate (Lactic Acid level) 0.7 mmol/L (0.5-2.2)
[2024-11-18 06:16] LABS: Procalcitonin 0.06 ng/mL (0-0.5)
[2024-11-18 06:20] LABS: Glucose Point of Care 111 mg/dL (70-110)
[2024-11-18 06:31] LABS: C Reactive Protein 94.4 mg/L (0.0-4.9)
[2024-11-18] MEDS: nicotine 14 mg Patch 1 PATCH TRANSDERMA (08:53)
[2024-11-18] MEDS: thiamine 100 mg/mL 2mL SDV IVP (08:53)
[2024-11-18] MEDS: nystatin 100,000 unit/mL UDC 5 mL 100000 UNIT PO ×2 (08:54→20:55)
[2024-11-18] MEDS: potassium phosphate (mEq K) 40 MEQ in sodium chloride 0.9% (100 ml) 100 ML 27.25 MEQ IV (09:49)
[2024-11-18] MEDS: metoprolol tartrate 25 mg Tablet PO ×2 (10:09→20:52)
--- NOTE | 2024-11-18 11:13 | FL_ITS ---
WS: [id number] LUMBAR PUNCTURE CLINICAL INFORMATION: ams COMPARISON: None. TECHNIQUE: Informed consent: The procedure and its potential risk and complications were discussed with the patient. Verbal and written consent was obtained. Timeout: A timeout was performed to confirm correct patient, procedure, and site. Patient was prepped and draped in the usual sterile fashion. Lidocaine 1% was used for local anesthesia. Utilizing fluoroscopic guidance, a 3.5 inch 22-gauge spinal needle was advanced into the subarachnoid space at L3-L4 via LEFT oblique sublaminar approach. Free flow of clear CSF was obtained. 12 cc of CSF was collected and sent the lab for further analysis. FLUOROSCOPIC TIME: 1min [id number] # of spot films: 1 FL/FL guided lumbarpunc dx* [id number] IMPRESSION: Uncomplicated fluoroscopically guided lumbar puncture.
[2024-11-18 11:55] LABS: Glucose Point of Care 151 mg/dL (70-110)
[2024-11-18] MEDS: OLANZapine 5 mg ODT PO (12:48)
--- NOTE | 2024-11-18 14:19 | PC.SLP ---
Per report pt is having a lumbar puncture this afternoon. WEB WEAVER will follow-up with the pt when he is able.
[2024-11-18] MEDS: LORazepam 2 mg/mL INJ 1 mL 1 MG IVP (14:40)
[2024-11-18] MEDS: LORazepam 2 mg/mL INJ 1 mL IVP (15:36)
[2024-11-18] MEDS: haloperidol inj 5 mg/mL INJ 1 mL 2 MG IM (15:45)
--- NOTE | 2024-11-18 16:00 | PC.NURSE ---
assisted pt for a lumbar puncture Notified Dr. Davila about pt started to get more agitated and restless in bed, however pt has a scheduled for a lumbar puncture. orders received from for ativan IVP 2 mg and haldol 5 mg IM once. pls see emar.
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
[2024-11-18 17:00] LABS: Cyto Order Verification No Order
[2024-11-18 17:07] LABS: Glucose Point of Care 113 mg/dL (70-110)
[2024-11-18 17:10] LABS: Appearance CSF CLEAR (CLEAR); Color CSF COLORLESS (COLORLESS)
[2024-11-18 17:15] LABS: CSF Specific Gravity 1.006
[2024-11-18 17:16] LABS: CSF Mononuclear # 0.006 10^3/uL (50-90); Mononuclear WBC CSF % 75 % (50-90); Polynuclear Cells ,CSF # 0.002 10^3/uL (0-10); Polynuclear WBC CSF % 25 % (0-10); Red Blood Cell CSF 0 10^3/uL (0-0); White Blood Cell CSF 8 /uL (0-5)
--- NOTE | 2024-11-18 17:25 | PC.SLP ---
Per report of the patient's nurse, the patient is back from lumbar puncture and is still sedated. [facility]IV[facility] SPECIALIST will follow up with the patient tomorrow and assess potential to upgrade diet. Patient was reportedly more alert earlier today, but did get anxious as the day progressed prior to lumbar puncture.
[2024-11-18 18:24] LABS: Lactate Dehydrogenase 152 U/L (135-225); Vancomycin Trough 11.2 ug/mL (10-15)
[2024-11-18 18:42] LABS: Pathology Referral Yes
[2024-11-18 18:51] LABS: Glucose CSF 80 mg/dL (40-70); Total Protein CSF 98 mg/dL (15-45)
--- NOTE | 2024-11-18 19:32 | XRR_ITS ---
PROCEDURE INFORMATION: Exam: XR Chest Exam date and time: 11/18/2024 7:54 PM Age: 74 years old Clinical indication: Shortness of breath; Additional info: Short of breath TECHNIQUE: Imaging protocol: Radiologic exam of the chest. Views: 1 view. COMPARISON: CT chest [place] [id number] 11/17/2024 9:52 AM FINDINGS: Lungs: Pulmonary emphysematous changes present. Patchy airspace disease present in the lateral left mid and lower lung field. The right lung is relatively clear. Pleural spaces: Unremarkable. No pleural effusion. No pneumothorax. Heart/Mediastinum: The heart is enlarged. Vasculature: Calcific plaque involves the thoracic aorta. Bones/joints: Unremarkable. XR/XR chest 1V portable [id number] IMPRESSION: 1. Multifocal airspace disease involving the left mid and lower lung field. 2. Pulmonary emphysematous changes. 3. Cardiomegaly.
[2024-11-18 19:52] LABS: ABG PCO2 32.2 mmHg (35-45); ABG PH Result 7.42 (7.35-7.45); Alveolar-Arterial Oxygen Gradi 6.3 mmHg (5-10); Blood Gas Sample Site Brachial, right; Blood Gas Sample Type Arterial; Carboxyhemoglobin 1.3 %THgb (0.4-20.1); HCO3 ABG 20.8 mmol/L (22-26); HGB O2 Sat 91.9 % (95-100); Ionized Calcium Level - ABG 1.2 mmol/L (1.1-1.4); Methemoglobin 0.2 % (0.4-1.5); Oxygen Device NC; Oxygen Saturation ABG 93.3; Potassium Level - ABG 3.3 mmol/L (3.5-5.0); Total Hemoglobin 11.7 g/dL (14-18)
--- NOTE | 2024-11-18 20:00 | PC.NURSE ---
notified hospitalist pt is breathing harder than before, persistently coughing,lungs wheezing. spo2-93-96@ on 2 L nasal cannula. talked to dr curry and orders received for stat ABG and chest xray portable.
[2024-11-18] MEDS: vancomycin 1,250 MG/250 ML PIGGYBACK 166.67 MG IV (20:15)
[2024-11-18] MEDS: tamsulosin 0.4 mg Capsule 0.8 MG PO (20:52)
[2024-11-18] MEDS: amiodarone 200 mg Tablet 400 MG PO (20:52)
[2024-11-18] MEDS: gabapentin 100 mg Capsule PO (20:52)
[2024-11-18 21:13] LABS: Glucose Point of Care 109 mg/dL (70-110)
[2024-11-19] VITALS (17 sets, daily range): BP systolic 125–135; BP diastolic 76–91; PULSE 77–107; RESP 18–28; TEMP 36.8–37; O2SAT 91–99
[2024-11-19] MEDS: ipratropium-albuterol 3 mL Neb INHALATION ×6 (00:10→21:55)
[2024-11-19] MEDS: OLANZapine 5 mg ODT PO ×3 (00:38→23:02)
[2024-11-19] MEDS: piperacillin-tazobactam 3.375 GM in sodium chloride 0.9% (plus) 50 ML IV ×3 (00:38→17:23)
[2024-11-19 03:46] LABS: Basophils # 0.1 10^3/uL (0.0-0.1); Basophils % 0.6 %; Eosinophils # 0.7 10^3/uL (0.0-0.8); Eosinophils % 8.3 %; Lymphocytes # 1.7 10^3/uL (0.8-4.8); Lymphocytes % 19.7 %; Mean Corpuscular HGB Conc 32.4 g/dL (30-55); Mean Corpuscular Hemoglobin 28.6 pg (27-33); Mean Corpuscular Volume 88.3 fl (82-101); Mean Platelet Volume 9.8 fL (7.4-10.4); Monocytes # 0.7 10^3/uL (0.2-0.9); Monocytes % 7.5 %; Neutrophils # 5.62 10^3/uL (1.8-7.7); Neutrophils % 63.4 %; Nucleated Red Blood Cells % 0 %; Platelet Count 277 10^3/cmm (157-399); Red Blood Count 3.85 10^6/uL (3.85-5.65); Red Cell Distribution Width 15.3 % (12.1-15.1); White Blood Count 8.84 10^3/uL (3.29-11.43)
[2024-11-19 04:13] LABS: Lactate (Lactic Acid level) 0.7 mmol/L (0.5-2.2)
[2024-11-19 04:14] LABS: Lyme AB Screen <0.90 index
[2024-11-19 04:17] LABS: Alanine Aminotransferase 13 U/L (0-41); Albumin Level 3.2 g/dL (3.5-5.2); Alkaline Phosphatase 85 U/L (40-130); Anion Gap 14.4 (5-19); Aspartate Amino Transferase 14 U/L (0-40); Blood Urea Nitrogen 14 mg/dL (8-23); Calcium 8.2 mg/dL (8.5-10.5); Carbon Dioxide 20 mmol/L (22-29); Chloride 114 mmol/L (98-107); Creatinine Clr Calc Pharmacy 76.1761; Globulin 2.3 g/dL (1.3-4.6); Glucose 109 mg/dL (65-115); Magnesium 1.9 mg/dL (1.7-2.3); Osmolality Calculated 301 mOsm/kg (285-295); Phosphorus 2.3 mg/dL (2.5-4.5); Potassium 3.4 mmol/L (3.5-5.1); Sodium 145 mmol/L (136-145); Total Bilirubin 0.9 mg/dL (0.15-1.2); Total Protein 5.5 g/dL (6.6-8.7)
[2024-11-19 04:19] LABS: Procalcitonin 0.06 ng/mL (0-0.5)
[2024-11-19 04:20] LABS: C Reactive Protein 83.9 mg/L (0.0-4.9)
[2024-11-19] MEDS: gabapentin 100 mg Capsule PO ×3 (04:21→20:47)
[2024-11-19] MEDS: morphine 4 mg/mL SDV 1 mL 2 MG IVP ×2 (06:00→20:23)
[2024-11-19] MEDS: vancomycin 1,250 MG/250 ML PIGGYBACK 167 MG IV ×2 (06:01→18:44)
[2024-11-19 06:25] LABS: Glucose Point of Care 108 mg/dL (70-110)
[2024-11-19] MEDS: nicotine 14 mg Patch 1 PATCH TRANSDERMA (09:23)
[2024-11-19] MEDS: nystatin 100,000 unit/mL UDC 5 mL 100000 UNIT PO ×4 (09:24→20:47)
[2024-11-19] MEDS: thiamine 100 mg/mL 2mL SDV IVP (09:24)
[2024-11-19] MEDS: amiodarone 200 mg Tablet 400 MG PO ×2 (09:25→17:22)
[2024-11-19] MEDS: topiramate 25 mg Tablet 50 MG PO ×2 (09:25→17:22)
[2024-11-19] MEDS: metoprolol tartrate 25 mg Tablet PO ×2 (09:25→20:47)
[2024-11-19 11:38] LABS: Glucose Point of Care 114 mg/dL (70-110)
[2024-11-19 11:38] LABS: RPR w(Moniotor) w/REFL Titer NON-REACTIVE (NON-REACTIVE)
--- NOTE | 2024-11-19 12:35 | PC.SOCIAL ---
IMM Updated Updated pt's sister on IMM. No questions voiced. Provided pt a copy. Initialed, dated, & timed copy in chart.
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
[2024-11-19 14:35] LABS: COMPLEMENT, TOTAL (CH50) 57 U/mL (31-60)
[2024-11-19 17:05] LABS: Glucose Point of Care 111 mg/dL (70-110)
[2024-11-19 17:46] LABS: Folate Level 14.7 ng/mL (4.5-32.2)
--- NOTE | 2024-11-19 18:17 | PM.CONSULT ---
Providers/Reason For Consult Consulting Physician/Specialty*: Berny Parks MD neurology and epilepsy Reason for Consult*: Altered mental status Attending Physician: Stevie Davila MD Primary Care Provider: Chuy Baca DO History of Present Illness History of Present Illness Jace Christie is a 74 year old male with a history of atrial fibrillation treated with Eliquis, transmetatarsal amputation of the right foot, urinary retention, acute hypoxic respiratory failure, and pneumonia and history of shrapnel in his neck from being in the . Patient reports he served in [place]. Patient also has history of alcohol use. According to the nurse, the patient has continued to remain confused for the past 3 days. Initially the nurses stated the patient was difficult to arouse but today he was more awake but still confused. The patient had noncontrast head CT was reported to be unremarkable. Metabolic lab unremarkable. Lumbar puncture did not reveal any significant findings except for slightly elevated WBC 8.0. In view of the patient's continued confusion neurology consult was obtained. Patient is on IV thiamine 100 mg daily. Drug allergies: Tylenol with codeine which resulted in dizziness Current medications: Eliquis 5 mg p.o. twice daily for atrial fibrillation Baclofen 10 mg p.o. twice daily as needed Budesonide/glyopyr/formot 160 mcg/9 mcg / 4.8 mcg accusation 2 puffs twice a day Tylenol 1000 mg p.o. every 6 hours as needed pain Diltiazem 30 mg p.o. every 8 hours as needed for rapid heart rate greater than 120 bpm Pepcid 20 mg p.o. twice daily Lasix 40 mg p.o. daily Neurontin 100 mg p.o. 3 times daily Midodrine 10 mg p.o. 3 times daily Sublingual nitroglycerin 0.4 mg as needed chest pain Potassium chloride 20 mill equivalents p.o. twice daily Flomax 0.8 mg p.o. nightly Topamax 50 mg p.o. twice daily as needed for pain Trazodone 50 mg p.o. nightly Albuterol sulfate 2 puffs every 8 hours as needed for shortness of breath Past medical history: Atrial fibrillation treated with Eliquis Acute hypoxic respiratory failure Pneumonia Urinary retention Alcohol use History of transmetatarsal amputation of the right foot Shrapnel foreign body in his neck Degenerative disc disease of the lumbar Diabetes mellitus Chronic obstructive pulmonary disease Congestive heart failure Diabetic peripheral neuropathy related to type 2 diabetes mellitus Diabetic foot ulcer associated with type 2 diabetes mellitus Habits: The patient reports that he drinks alcohol. The patient reports that he drinks 1-2 beers a day and smokes 1 pack of cigarettes per day. Patient was educated on potential health risk associated with smoking. Family history: Unable to obtain from patient secondary to confusion Review of Systems General: Reports: 10 or more systems reviewed and unremarkable except in HPI and below Neuro: Reports: confusion Medications/Allergies Home Medications ?Medication ?Instructions ?Recorded ?Confirmed ?Last Taken ?Type tamsulosin 0.4 mg capsule 0.8 mg PO BEDTIME 06/21/22 11/16/24 08/24/22 History acetaminophen 500 mg tablet 1,000 mg (2 x 500 mg) PO Q6H PRN 10/22/22 11/16/24 Unknown Rx Pain 14 days #20 tabs Diabetic Shoes with toe filler to #1 ea 11/10/22 11/16/24 Unknown Rx right apixaban 5 mg tablet (Eliquis) 5 mg PO BID 03/20/23 11/17/24 Unknown History baclofen 10 mg tablet 10 mg PO BID PRN spasm #60 tabs 05/02/23 11/16/24 Unknown Rx potassium chloride 20 mEq 20 meq PO BID #60 tabs 05/02/23 11/16/24 Unknown Rx tablet,extended release albuterol sulfate 90 mcg/actuation 2 puff inhalation Q8H PRN 05/14/23 11/16/24 Unknown History aerosol inhaler shortness of breath or wheezing diltiazem HCl 30 mg tablet 30 mg PO Q8H PRN for heart rate 05/14/23 11/16/24 Unknown History (Cardizem) greater than 120 topiramate 50 mg tablet 50 mg PO BID PRN Pain 05/14/23 11/16/24 Unknown History nitroglycerin 0.4 mg sublingual 0.4 mg sublingual Q5M PRN chest 05/15/23 11/17/24 Unknown Rx tablet pain #25 tabs midodrine 10 mg tablet 10 mg PO TID #90 tabs 06/07/23 11/16/24 Unknown Rx furosemide 40 mg tablet 40 mg PO DAILY 06/08/23 11/16/24 Unknown History budesonide 160 mcg-glycopyr 9 2 inh inhalation BID #10.7 grams 02/26/24 11/16/24 Unknown Rx mcg-formot 4.8 mcg/actuation HFA inhaler ([employer]) Cam boot to right #1 ea 04/28/24 11/16/24 Unknown Rx acetaminophen 300 mg-codeine 30 mg 1 tab PO Q6H PRN Pain 11/16/24 11/16/24 Unknown History tablet famotidine 20 mg tablet (Pepcid AC) 20 mg PO BID 11/16/24 11/16/24 Unknown History gabapentin 100 mg capsule 100 mg PO TID 11/16/24 11/16/24 Unknown History trazodone 100 mg tablet 50 mg PO BEDTIME 11/16/24 11/16/24 Unknown History Allergies Allergy/AdvReac Type Severity Reaction Status Date / Time codeine (From AdvReac Mild ADR-Dizzine Verified 10/01/24 15:05 Tylenol-Codeine #3) ss Current Medications Generic Name Dose Route Start Last Admin Trade Name Freq PRN Reason Stop Dose Admin Albuterol/Ipratropium 3 ml 11/15/24 23:04 11/17/24 08:37 Ipratropium-Albuterol 3 Ml Neb INHALATION 3 ml Q6H PRN Administration SHORTNESS OF BREATH Albuterol/Ipratropium 3 ml 11/17/24 12:00 11/19/24 15:16 Ipratropium-Albuterol 3 Ml Neb INHALATION 3 ml Q4H.RESPIRATORY JOSÉ MIGUEL Administration Amiodarone HCl 400 mg 11/18/24 20:00 11/19/24 17:22 Amiodarone 200 Mg Tablet PO 400 mg BID JOSÉ MIGUEL Administration Apixaban 5 mg 11/16/24 09:00 11/16/24 08:51 Apixaban 5 Mg Tablet PO 5 mg BID JOSÉ MIGUEL Administration Gabapentin 100 mg 11/18/24 16:15 11/19/24 12:44 Gabapentin 100 Mg Capsule PO 100 mg Q8H JOSÉ MIGUEL Administration Piperacillin Sod/Tazobactam 50 mls @ 12.5 mls/hr 11/16/24 19:00 11/19/24 17:23 Sod 3.375 gm/ Sodium Chloride IV 12.5 mls/hr Q8H JOSÉ MIGUEL Administration Protocol Acyclovir 800 mg/ Sodium 266 mls @ 270 mls/hr 11/17/24 09:30 11/19/24 17:22 Chloride IV 270 mls/hr Q8H JOSÉ MIGUEL Administration Vancomycin HCl 1,250 mg in 250 mls @ 166.667 mls/hr 11/18/24 19:00 11/19/24 07:35 Vancocin IV Infused Q12H JOSÉ MIGUEL Infusion Insulin Human Lispro 0 unit 11/16/24 12:00 11/19/24 17:15 Insulin Lispro 100 Unit/1 Ml SUBCUT Not Given [facility] Protocol Lorazepam 1 mg 11/17/24 08:22 11/18/24 14:40 Lorazepam 2 Mg/Ml Inj 1 Ml IVP 1 mg Q4H PRN Administration AGITATION Metoprolol Tartrate 25 mg 11/18/24 09:00 11/19/24 09:25 Metoprolol Tartrate 25 Mg Tablet PO 25 mg BID@0900,2100 JOSÉ MIGUEL Administration Morphine Sulfate 2 mg 11/16/24 16:29 11/19/24 06:00 Morphine 4 Mg/Ml Sdv 1 Ml IVP 2 mg Q4H PRN Administration SEVERE PAIN Nicotine 1 patch 11/17/24 13:40 11/19/24 09:23 Nicotine 14 Mg Patch TRANSDERMA 1 patch DAILY JOSÉ MIGUEL Administration Nystatin 100,000 unit 11/17/24 13:00 11/19/24 17:21 Nystatin 100,000 Unit/Ml Udc 5 Ml PO 100,000 unit QID JOSÉ MIGUEL Administration Olanzapine 5 mg 11/18/24 11:15 11/19/24 12:42 Olanzapine 5 Mg Odt PO 5 mg Q12H JOSÉ MIGUEL Administration Tamsulosin HCl 0.8 mg 11/16/24 21:00 11/18/24 20:52 Tamsulosin 0.4 Mg Capsule PO 0.8 mg BEDTIME JOSÉ MIGUEL Administration Thiamine HCl 100 mg 11/16/24 09:00 11/19/24 09:24 Thiamine 100 Mg/Ml 2ml Sdv IVP 100 mg DAILY JOSÉ MIGUEL Administration Topiramate 50 mg 11/18/24 18:00 11/19/24 17:22 Topiramate 25 Mg Tablet PO 50 mg BID JOSÉ MIGUEL Administration PFSH Acute PFSH: Medical History Atrial fibrillation Diabetes mellitus Black tarry stools Melena Chronic anticoagulation Acute blood loss anemia Dehydration Shock Hypotension Atrial fibrillation with rapid ventricular response COPD (chronic obstructive pulmonary disease) Acute upper GI bleed Hyperglycemia COVID Hypoxemia COPD exacerbation Non-pressure 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 Dehiscence of amputation stump of right lower extremity Diabetic peripheral neuropathy associated with type 2 diabetes mellitus Surgical History 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 S/P foot surgery, right History of amputation of great toe Family History Denies family history of Cancer Social History Smoking and tobacco/nicotine status: current every day tobacco/nicotine user cigarettes Packs smoked per day: 1 Years cigarettes smoked: 53 [ Other cigarette details: Started at 1969] Vitals/I&O/Wt Last Vital Signs Temp 98.2 F 11/19/24 16:00 Pulse 107 H 11/19/24 16:00 Resp 25 H 11/19/24 16:00 BP 134/86 11/19/24 16:00 Pulse Ox 93 11/19/24 16:00 O2 Del Method Room Air 11/19/24 16:00 O2 Flow Rate 2 11/19/24 08:31 11/19/24 11/19/24 11/19/24 06:59 14:59 22:59 Intake Total 466 / 2045.2169 566 / 566 Output Total 600 / 1350 650 / 650 Balance -134 / 695.2169 566 / 566 -650 / -84 Weight last 48 hrs Weight 186 lb 3 oz Weight 186 lb 3 oz Physical Exam Narrative: The patient is alert. He is in no apparent distress. The patient is oriented to person and was able to tell me his full name and date of . The patient stated he was 75 years old instead of 74. He did know he was at [facility]. Patient thought it was November 15, 1973. The patient was able to follow commands. Head atraumatic. Neck supple. Cranial nerves II through XII grossly intact. Pupils 3 mm round reactive to light and accommodation. Extraocular movements intact. There were no nystagmus. Motor testing grossly nonfocal. Sensory examination was intact to touch. Throat clear. Lungs revealed no obvious wheezing. Heart atrial fibrillation. Extremities were negative for cyanosis. Urinary Catheter Management: Ash: Cath Placed During This Visit: yes Reason for Continuing Indwelling Catheter: Acute Urinary Retention or Obstruction Urinary Catheter Date of Insertion: 11/16/24 Urinary Catheter Time of Insertion: 01:36 Data 11/19/24 03:22 11/19/24 03:22 Micro: Microbiology 11/18/24 16:58 Gram Stain - Final Cerebrospinal Fluid CSF Culture - Preliminary 11/18/24 02:16 Urine Culture - Preliminary Urine Catheterized 11/17/24 17:47 Blood Culture - Preliminary Blood NEGATIVE TO DATE 11/17/24 17:44 Blood Culture - Preliminary Blood NEGATIVE TO DATE 11/18/24 16:59 Cryptococcal Antigen (CSF) - Final Cerebrospinal Fluid A&P Assessment and plan (1) Altered mental status: Impression: 1. Delirium/altered mental status assess for encephalopathy 2. History of alcohol use 3. History of nicotine dependence 4. Shrapnel in his neck (not MRI compatible) 5. Type 2 diabetes mellitus 6. Chronic obstructive pulmonary disease 7. Atrial fibrillation treated with Eliquis 8. Congestive heart failure Plan: 1. Agree with obtaining EEG study to assess for seizures 2. Consider discontinuing discontinuing Tylenol with codeine for pain since patient has reported allergy described as dizziness which can contribute to the patient's confusion 3. Consider discontinuing Topamax and consider tapering baclofen if the patient remains confused and if EEG study is unremarkable for seizures 4. Continue thiamine 100 mg IV daily and changed to oral thiamine 100 mg p.o. daily upon discharge or sooner if patient tolerating oral medications 5. Fall precautions (2) Delirium: PDMP PDMP Reviewed: Not Reviewed Consult Attestations Medical Necessity Statement: The patient was evaluated by neurology for altered mental status/confusion Coding Level of Care Code 37776 Diagnoses Altered mental status R41.82 Delirium R41.0
[2024-11-19 20:08] LABS: 25 Hydroxy Vitamin D 20 ng/mL (30-100)
[2024-11-19] MEDS: tamsulosin 0.4 mg Capsule 0.8 MG PO (20:47)
[2024-11-19 21:05] LABS: Glucose Point of Care 103 mg/dL (70-110)
[2024-11-20] VITALS (11 sets, daily range): BP systolic 105–149; BP diastolic 55–99; PULSE 65–95; RESP 15–23; TEMP 36.4–36.9; O2SAT 92–98
[2024-11-20] MEDS: piperacillin-tazobactam 3.375 GM in sodium chloride 0.9% (plus) 50 ML IV ×3 (00:56→17:28)
--- NOTE | 2024-11-20 01:22 | PC.NURSE ---
At 0000 restraint was removed, patient is not trying to pull at his bobo or IVs at this time, patient is still alert to self only but able to follow simple commands, patient is easily redirctable at this time, sitter is still at bedside
[2024-11-20] MEDS: ipratropium-albuterol 3 mL Neb INHALATION ×3 (01:40→20:38)
[2024-11-20 03:00] LABS: COMPLEMENT COMPONENT C3C 130 mg/dL (82-185); COMPLEMENT COMPONENT C4C 25 mg/dL (15-53)
[2024-11-20] MEDS: gabapentin 100 mg Capsule PO ×3 (04:40→20:21)
[2024-11-20 06:22] LABS: Glucose Point of Care 160 mg/dL (70-110)
[2024-11-20 06:27] LABS: Basophils # 0.1 10^3/uL (0.0-0.1); Eosinophils # 0.8 10^3/uL (0.0-0.8); Eosinophils % 9.7 %; Hematocrit 34.6 % (37-53); Lymphocytes # 1.9 10^3/uL (0.8-4.8); Lymphocytes % 21.9 %; Mean Corpuscular HGB Conc 32.1 g/dL (30-55); Mean Corpuscular Hemoglobin 28.5 pg (27-33); Mean Corpuscular Volume 88.9 fl (82-101); Mean Platelet Volume 9.9 fL (7.4-10.4); Monocytes # 0.6 10^3/uL (0.2-0.9); Monocytes % 6.4 %; Neutrophils # 5.25 10^3/uL (1.8-7.7); Neutrophils % 60.7 %; Nucleated Red Blood Cells % 0 %; Platelet Count 273 10^3/cmm (157-399); Red Blood Count 3.89 10^6/uL (3.85-5.65); Red Cell Distribution Width 15.3 % (12.1-15.1); White Blood Count 8.66 10^3/uL (3.29-11.43)
[2024-11-20 06:45] LABS: Alanine Aminotransferase 14 U/L (0-41); Albumin Level 3.2 g/dL (3.5-5.2); Alkaline Phosphatase 80 U/L (40-130); Anion Gap 14.5 (5-19); Aspartate Amino Transferase 13 U/L (0-40); Blood Urea Nitrogen 14 mg/dL (8-23); Calcium 8.8 mg/dL (8.5-10.5); Carbon Dioxide 21 mmol/L (22-29); Chloride 112 mmol/L (98-107); Globulin 2.7 g/dL (1.3-4.6); Glucose 149 mg/dL (65-115); Magnesium 1.8 mg/dL (1.7-2.3); Osmolality Calculated 301 mOsm/kg (285-295); Potassium 3.5 mmol/L (3.5-5.1); Sodium 144 mmol/L (136-145); Total Bilirubin 0.7 mg/dL (0.15-1.2); Total Protein 5.9 g/dL (6.6-8.7)
[2024-11-20 06:46] LABS: Lactate (Lactic Acid level) 1.5 mmol/L (0.5-2.2)
[2024-11-20 06:47] LABS: Vancomycin Trough 20.2 ug/mL (10-15)
[2024-11-20 06:51] LABS: NT Pro B Type Natriuretic Pept 1281 pg/mL (0-125); Procalcitonin 0.05 ng/mL (0-0.5)
[2024-11-20 07:02] LABS: C Reactive Protein 53.1 mg/L (0.0-4.9)
[2024-11-20] MEDS: vancomycin 1,250 MG/250 ML PIGGYBACK 167 MG IV (07:10)
[2024-11-20 07:20] LABS: Cytomegalovirus Antibody (IGM) <30.00 AU/mL
[2024-11-20 07:20] LABS: CENTROMERE B ANTIBODY <1.0 NEG AI (<1.0 NEG); JO-1 ANTIBODY <1.0 NEG AI (<1.0 NEG); RNP ANTIBODY <1.0 NEG AI (<1.0 NEG); SCL-70 ANTIBODY <1.0 NEG AI (<1.0 NEG); SJOGREN'S ANTIBODY (SS-A) <1.0 NEG AI (<1.0 NEG); SM ANTIBODY <1.0 NEG AI (<1.0 NEG); SS-B <1.0 NEG AI (<1.0 NEG)
[2024-11-20 07:20] LABS: HSV 2 IGG Type Specific AB <0.90 index
[2024-11-20] MEDS: VANCOMYCIN ADD-Vantage 1,000 MG in 0.9% NaCl ADD-Vantage 250 ML 250 MG IV ×2 (07:58→18:48)
[2024-11-20] MEDS: thiamine 100 mg/mL 2mL SDV IVP (08:00)
[2024-11-20] MEDS: nystatin 100,000 unit/mL UDC 5 mL 100000 UNIT PO ×4 (08:00→20:21)
[2024-11-20] MEDS: nicotine 14 mg Patch 1 PATCH TRANSDERMA (08:01)
[2024-11-20] MEDS: insulin lispro 100 unit/1 mL SUBCUT ×2 (08:01→17:25)
[2024-11-20] MEDS: amiodarone 200 mg Tablet 400 MG PO ×2 (08:02→17:24)
[2024-11-20] MEDS: metoprolol tartrate 25 mg Tablet PO ×2 (08:02→20:21)
[2024-11-20] MEDS: topiramate 25 mg Tablet 50 MG PO ×2 (08:02→17:24)
[2024-11-20] MEDS: apixaban 5 mg Tablet PO ×2 (08:03→17:25)
[2024-11-20 11:57] LABS: Glucose Point of Care 86 mg/dL (70-110)
[2024-11-20] MEDS: OLANZapine 5 mg ODT PO (12:22)
--- NOTE | 2024-11-20 14:09 | PM.ACPR ---
Documented by User: Carmen Horta 11/20/24 14:11 EEG Routine Details of Procedure EEG Routine 83564- awake & drowsy: [id number] (eeg ordered per Dr Davila) Documented by User: Berny Parks MD 11/21/24 17:36 EEG Routine Details of Procedure Details/Comments: EEG TEMPLATE: This is a 19 channel routine video surface EEG recording utilizing the [employer] software with surface and EKG electrodes. The procedure was performed utilizing the international 10-20 system. Patient name: Jace Christie Date of : 1950 Patient age [age] years old Identification number: [id number] Referring Physician: Dr. Stevie Davila Interpreting physician: Dr. Berny Parks EEG#: EEG Start time: 14:36:06 EEG End time: 14:54:21 Duration of study: 20 minutes Date of study: 11/20/2024 Reason for study: Delirium/confusion assess for subclinical status epilepticus and assist in determining if anticonvulsant medications are required for seizures. Skull defects: None Condition of recording: The patient was reported to be awake and later on asleep Cooperation: Fair Activation procedures: None Medications: Eliquis 5 mg p.o. twice daily for atrial fibrillation Baclofen 10 mg p.o. twice daily as needed Budesonide/glyopyr/formot 160 mcg/9 mcg / 4.8 mcg accusation 2 puffs twice a day Tylenol 1000 mg p.o. every 6 hours as needed pain Diltiazem 30 mg p.o. every 8 hours as needed for rapid heart rate greater than 120 bpm Pepcid 20 mg p.o. twice daily Lasix 40 mg p.o. daily Neurontin 100 mg p.o. 3 times daily Midodrine 10 mg p.o. 3 times daily Sublingual nitroglycerin 0.4 mg as needed chest pain Potassium chloride 20 mill equivalents p.o. twice daily Flomax 0.8 mg p.o. nightly Topamax 50 mg p.o. twice daily as needed for pain Trazodone 50 mg p.o. nightly Albuterol sulfate 2 puffs every 8 hours as needed for shortness of breath Background activity: Background activity during wakefulness consisted of 7 Hz low voltage theta activity posteriorly penetrated by intermittent low voltage beta activity centrally and anteriorly. Intermittently during the recording the record was partially obscured by muscle and motion artifact. Later during the recording the generalized 4 to 7 Hz theta activity was seen over the left and right hemispheres was intermixed with generalized moderate voltage delta activity. Intermittent vertex waves and sleep spindles were seen synchronously over the parasagittal regions. Interictal activity: None Ictal activity: None Impression: This is a mildly abnormal awake, stage I and stage II sleep 20-minute surface EEG recording secondary to generalized 7 Hz theta slowing seen during wakefulness. Clinical correlation: The generalized slowing of the background rhythm is suggestive of a mild diffuse encephalopathic process, nonspecific with regards to etiology. Note: No seizure activity was seen. Physician name/Signature: Berny Parks MD program advocate/Signature: Carmen Mckinney
--- NOTE | 2024-11-20 14:56 | P.PN_ITS ---
Subjective 2 Subjective: Patient was examined this morning, he is alert to person to place, not to time he follows commands, able to move bilateral upper lower extremities on command able to smile for me, I cannot discern any focal weakness, no slurring of his words, pupils equal round reactive to light, he knows his name his birthdate is address, he does not know why he is here in the hospital, she denies any falls, no traumas, no recent illness, denies any pain complaints, no neck pain, no back pain denies alcoholism Vitals/I&O/Wt Last Vital Signs Temp 97.9 F 11/20/24 11:43 Pulse 78 11/20/24 11:43 Resp 18 11/20/24 11:43 BP 108/62 11/20/24 11:43 Pulse Ox 98 11/20/24 11:43 O2 Del Method Room Air 11/20/24 11:43 O2 Flow Rate 2 11/19/24 08:31 11/19/24 11/20/24 11/20/24 22:59 06:59 14:59 Intake Total 566 / 1132 316 / 1448 550 / 550 Output Total 650 / 650 400 / 400 Balance -84 / 482 316 / 798 150 / 150 Weight last 48 hrs Weight 84.453 kg Weight 84.453 kg Physical Exam 2 Const: COMMON NORMALS: no acute distress ORIENTATION/CONSCIOUSNESS: Yes awake, Yes oriented to person and Yes oriented to place Resp: COMMON NORMALS: normal respiratory effort, No retractions, No use of accessory muscles and clear to auscultation bilaterally AUSCULTATION: clear to auscultation bilaterally Cardio: COMMON NORMALS: regular rate, regular rhythm, S1 normal heart sound present and S2 normal heart sound present RATE: regular rate RHYTHM: r egular rhythm HEART SOUNDS: S1 normal heart sound present and S2 normal heart sound present GI: COMMON NORMALS: Normal to inspection, nondistended, normoactive bowel sounds present and non-tender Extremity: COMMON NORMALS: no pedal edema Neuro: COMMON NORMALS: CN's II-XII intact bilaterally, moves all extremities and no focal motor deficits SENSORIUM/ORIENTATION: Yes oriented to person and Yes oriented to place Psych: COMMON NORMALS: mental status grossly normal Urinary Catheter Management: Ash: Cath Placed During This Visit: yes Reason for Continuing Indwelling Catheter: Acute Urinary Retention or Obstruction Urinary Catheter Date of Insertion: 11/16/24 Urinary Catheter Time of Insertion: 01:36 Data 11/20/24 06:02 11/20/24 06:02 Micro: Microbiology 11/18/24 02:16 Urine Culture - Final Urine Catheterized 11/18/24 16:58 Gram Stain - Final Cerebrospinal Fluid CSF Culture - Preliminary A&P Assessment and plan (1) Delirium: (2) Diabetes mellitus: (3) Diabetic peripheral neuropathy associated with type 2 diabetes mellitus: (4) Atrial fibrillation: Qualifiers: Atrial fibrillation type: permanent Qualified Code(s): I48.21 - Permanent atrial fibrillation (5) Right upper lobe pulmonary nodule: (6) COPD (chronic obstructive pulmonary disease): Qualifiers: COPD type: emphysema Emphysema type: centrilobular Qualified Code(s): J43.2 - Centrilobular emphysema (7) Urinary retention: (8) Pneumonia: (9) Acute hypoxic respiratory failure: Radiologist Impressions: Last 24 hours Lumbar Puncture Fluoroscopy 11/18/24 11:13 IMPRESSION: Uncomplicated fluoroscopically guided lumbar puncture. Chest X-Ray 11/18/24 19:32 IMPRESSION: 1. Multifocal airspace disease involving the left mid and lower lung field. 2. Pulmonary emphysematous changes. 3. Cardiomegaly. 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 -Concern for HSV encephalitis continue IV acyclovir -CSF studies lackluster, clear, colorless, 8 WBCs, CSF glucose 80, total protein 98, does have type 2 diabetes -Did have elevated lead levels during his last hospitalization, 6.7, has history of shrapnel in the neck, repeat lead levels -Follow blood cultures, so far no growth -CSF culture so far pending -Follow urine culture, no growth -Viral studies ordered -Cryptococcal CSF antigen negative -Fungal studies LDH, beta glucan -LDH, beta glucan - cannot do MRI due to shrapnel -Possible Warnicke's encephalopathy and Korsakoff syndrome, continue high-dose thiamine 500 mg IV every 8 hours for 48 hours then switch to 250 mg IV daily Continue tamsulosin Neurochecks, and a stroke scale cardiac echo CONCLUSIONS LV systolic function is normal with EF of 55-60% Mild mitral regurgitation Aortic root is mildly dilated Biatrial dilation Compared to prior echocardiogram from 2022, no significant changes are seen. carotid ultrasound CONCLUSIONS Bilateral ICA stenosis less than 50%. Moderate carotid atherosclerosis. Irregular plaque at the bifurcations. Cardiac echo CT chest abdomen pelvis CT/[place] [id number] IMPRESSION: 1. Quality is compromised by breathing motion artifact and movement. 2. Stable spiculated nodule with pleural tagging in the RIGHT upper lobe. 3. New opacifications consistent with pneumonia LEFT upper lobe and LEFT lower lobes. 4. Mildly hydropic gallbladder with layering stones or stones. This can be further evaluated by ultrasound if thought clinically necessary. 5. Numerous bilateral renal cysts with no renal obstruction. 6. Multiple supraumbilical abdominal wall hernias contain fat only. 7. Diverticulosis without acute diverticulitis. 8. Ash catheter present in a nondistended bladder. Marked distention of the bladder wall be due to chronic outlet obstruction. crp 11.1, Pro-Ethan 0.03, sed rate 9, RPR pending, folic acid wnl, TSH wnl, B12 wnl, GELY, HIV wnl, acute hep panel wnl, tick panel pending Acute hypoxic respiratory failure secondary to pneumonia, -Continue IV antibiotics as above, IV acyclovir -Currently on 3 L -DuoNeb Atrial fibrillation with rapid ventricular response currently on amiodarone drip, added metoprolol 25 twice daily COPD: Currently saturating well on room air Continue thiamine Patient may need Michelle psych placement Agitation Zyprexa as needed Full code Dysphagia level 4 diet Plan for today follow EEG increase to high-dose thiamine, continue IV antibiotics, PT OT, speech therapy eval PDMP PDMP Reviewed: Last Reviewed 11/16/24 08:58 by Stevie Davila MD Attestations 2 Medical Necessity Statement*: Patient requires hospitalization for encephalopathy, concerns for possible Warnicke's's encephalopathy, requiring IV thiamine, concerns for pneumonia IV antibiotics viral encephalitis requiring IV acyclovir, respiratory failure, atrial fibrillation, Diagnoses Delirium R41.0 Diabetes mellitus E11.9 Diabetic peripheral neuropathy associated with type 2 diabetes mellitus E11.42 Permanent atrial fibrillation I48.21 Atrial fibrillation type: permanent Right upper lobe pulmonary nodule R91.1 Centrilobular emphysema J43.2 COPD type: emphysema Emphysema type: centrilobular Urinary retention R33.9 Pneumonia J18.9 Acute hypoxic respiratory failure J96.01 Atrial fibrillation with rapid ventricular response I48.91
[2024-11-20 17:12] LABS: Glucose Point of Care 146 mg/dL (70-110)
[2024-11-20] MEDS: thiamine 100 mg/mL 2mL SDV 500 MG IVP (17:23)
[2024-11-20] MEDS: tamsulosin 0.4 mg Capsule 0.8 MG PO (20:21)
[2024-11-20 21:31] LABS: Glucose Point of Care 98 mg/dL (70-110)
[2024-11-21] VITALS (11 sets, daily range): BP systolic 107–145; BP diastolic 54–82; PULSE 57–82; RESP 16–22; TEMP 36.5–36.6; O2SAT 92–99
[2024-11-21] MEDS: thiamine 100 mg/mL 2mL SDV 500 MG IVP ×3 (00:09→17:22)
[2024-11-21] MEDS: OLANZapine 5 mg ODT PO ×2 (00:09→11:08)
[2024-11-21] MEDS: piperacillin-tazobactam 3.375 GM in sodium chloride 0.9% (plus) 50 ML IV ×2 (00:57→09:17)
[2024-11-21] MEDS: ipratropium-albuterol 3 mL Neb INHALATION ×4 (02:31→20:52)
[2024-11-21] MEDS: gabapentin 100 mg Capsule PO ×3 (04:12→20:33)
[2024-11-21 05:33] LABS: Basophils # 0.1 10^3/uL (0.0-0.1); Basophils % 0.7 %; Eosinophils # 0.8 10^3/uL (0.0-0.8); Eosinophils % 10.1 %; Hematocrit 31.2 % (37-53); Lymphocytes # 2.1 10^3/uL (0.8-4.8); Lymphocytes % 25.7 %; Mean Corpuscular HGB Conc 33.3 g/dL (30-55); Mean Corpuscular Hemoglobin 29.6 pg (27-33); Mean Corpuscular Volume 88.9 fl (82-101); Mean Platelet Volume 9.8 fL (7.4-10.4); Monocytes # 0.6 10^3/uL (0.2-0.9); Monocytes % 6.9 %; Neutrophils # 4.62 10^3/uL (1.8-7.7); Neutrophils % 56.2 %; Nucleated Red Blood Cells % 0 %; Platelet Count 247 10^3/cmm (157-399); Red Blood Count 3.51 10^6/uL (3.85-5.65); Red Cell Distribution Width 15.3 % (12.1-15.1); White Blood Count 8.22 10^3/uL (3.29-11.43)
[2024-11-21 05:59] LABS: Lactate (Lactic Acid level) 0.8 mmol/L (0.5-2.2)
[2024-11-21 06:00] LABS: NT Pro B Type Natriuretic Pept 1135 pg/mL (0-125); Procalcitonin 0.04 ng/mL (0-0.5)
[2024-11-21 06:02] LABS: Alanine Aminotransferase 14 U/L (0-41); Albumin Level 2.8 g/dL (3.5-5.2); Alkaline Phosphatase 74 U/L (40-130); Anion Gap 16.3 (5-19); Aspartate Amino Transferase 12 U/L (0-40); Blood Urea Nitrogen 14 mg/dL (8-23); Calcium 8.2 mg/dL (8.5-10.5); Carbon Dioxide 18 mmol/L (22-29); Chloride 111 mmol/L (98-107); Creatinine Clr Calc Pharmacy 76.1761; Globulin 2.4 g/dL (1.3-4.6); Glucose 89 mg/dL (65-115); Magnesium 1.9 mg/dL (1.7-2.3); Osmolality Calculated 294 mOsm/kg (285-295); Phosphorus 2.2 mg/dL (2.5-4.5); Potassium 3.3 mmol/L (3.5-5.1); Sodium 142 mmol/L (136-145); Total Bilirubin 0.6 mg/dL (0.15-1.2); Total Protein 5.2 g/dL (6.6-8.7)
[2024-11-21] MEDS: VANCOMYCIN ADD-Vantage 1,000 MG in 0.9% NaCl ADD-Vantage 250 ML 250 MG IV (06:32)
[2024-11-21 06:55] LABS: Glucose Point of Care 103 mg/dL (70-110)
[2024-11-21] MEDS: nystatin 100,000 unit/mL UDC 5 mL 100000 UNIT PO ×4 (09:15→20:33)
[2024-11-21] MEDS: apixaban 5 mg Tablet PO ×2 (09:15→17:22)
[2024-11-21] MEDS: topiramate 25 mg Tablet 50 MG PO ×2 (09:15→17:23)
[2024-11-21] MEDS: metoprolol tartrate 25 mg Tablet PO ×2 (09:15→20:33)
[2024-11-21] MEDS: amiodarone 200 mg Tablet 400 MG PO ×2 (09:15→17:23)
[2024-11-21] MEDS: potassium chloride ER 20 mEq Tablet 40 MEQ PO (09:15)
[2024-11-21] MEDS: nicotine 14 mg Patch 1 PATCH TRANSDERMA (09:16)
[2024-11-21 11:30] LABS: Glucose Point of Care 110 mg/dL (70-110)
[2024-11-21 12:14] LABS: ANA SCREEN, IFA POSITIVE (NEGATIVE)
--- NOTE | 2024-11-21 12:41 | PC.SOCIAL ---
IMM Updated Updated pt on IMM. No questions voiced. Provided pt a copy. Initialed, dated, & timed copy in chart.
--- NOTE | 2024-11-21 14:27 | P.PN_ITS ---
Subjective 2 Subjective: Patient was seen this morning he is alert oriented x 3, following all commands, denies any fevers, no chills, no cough, no weakness, he is much more alert awake, has no pain complaints Vitals/I&O/Wt Last Vital Signs Temp 97.8 F 11/21/24 12:00 Pulse 78 11/21/24 14:00 Resp 18 11/21/24 14:00 BP 107/60 11/21/24 12:00 Pulse Ox 94 11/21/24 14:00 O2 Del Method Room Air 11/21/24 14:00 O2 Flow Rate 2 11/19/24 08:31 11/20/24 11/21/24 11/21/24 22:59 06:59 14:59 Intake Total 566 / 1382 1516 / 2898 626 / 626 Output Total 650 / 1050 850 / 1900 Balance -84 / 332 666 / 998 626 / 626 Weight last 48 hrs Weight 88.7 kg Weight 84.453 kg Physical Exam 2 Const: COMMON NORMALS: no acute distress and patient oriented x3 Resp: COMMON NORMALS: normal respiratory effort, No retractions, No use of accessory muscles and clear to auscultation bilaterally AUSCULTATION: clear to auscultation bilaterally Cardio: COMMON NORMALS: regular rate, regular rhythm, S1 normal heart sound present and S2 normal heart sound present RATE: regular rate RHYTHM: r egular rhythm HEART SOUNDS: S1 normal heart sound present and S2 normal heart sound present GI: COMMON NORMALS: Normal to inspection, nondistended, normoactive bowel sounds present and non-tender Extremity: COMMON NORMALS: no pedal edema Neuro: COMMON NORMALS: patient oriented x3 Psych: COMMON NORMALS: mental status grossly normal Urinary Catheter Management: Ash: Cath Placed During This Visit: yes Reason for Continuing Indwelling Catheter: Accurate Measurement of Urinary Output in Critically Ill Patients Urinary Catheter Date of Insertion: 11/16/24 Urinary Catheter Time of Insertion: 01:36 Data 11/21/24 05:12 11/21/24 05:12 Micro: Microbiology 11/18/24 16:58 Gram Stain - Final Cerebrospinal Fluid CSF Culture - Final 11/18/24 02:16 Urine Culture - Final Urine Catheterized A&P Assessment and plan (1) Delirium: (2) Diabetes mellitus: (3) Diabetic peripheral neuropathy associated with type 2 diabetes mellitus: (4) Atrial fibrillation: Qualifiers: Atrial fibrillation type: permanent Qualified Code(s): I48.21 - Permanent atrial fibrillation (5) Right upper lobe pulmonary nodule: (6) COPD (chronic obstructive pulmonary disease): Qualifiers: COPD type: emphysema Emphysema type: centrilobular Qualified Code(s): J43.2 - Centrilobular emphysema (7) Urinary retention: (8) Pneumonia: (9) Acute hypoxic respiratory failure: Radiologist Impressions: Last 24 hours Lumbar Puncture Fluoroscopy 11/18/24 11:13 IMPRESSION: Uncomplicated fluoroscopically guided lumbar puncture. Chest X-Ray 11/18/24 19:32 IMPRESSION: 1. Multifocal airspace disease involving the left mid and lower lung field. 2. Pulmonary emphysematous changes. 3. Cardiomegaly. (10) Atrial fibrillation with rapid ventricular response: (11) Wernicke encephalopathy: Plan Acute encephalopathy -Mentation improved, alert oriented x 3, following commands -Mentation significantly improved once started on IV thiamine, likely Warnicke encephalopathy as etiology, in addition to pneumonia, in addition to urinary retention Initially thought to be related to urinary retention however patient remained encephalopathic Component related to pneumonia left upper lobe, left lower lobe, has been on antibiotics for over 48 hours but continues to have episodes of encephalopathy -Discontinue vancomycin -De-escalate to Augmentin -Has a oral rash, herpetic lesions, and posterior pharynx, and the roof of the mouth, 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, however CSF studies are lackluster, stopping IV acyclovir -IV acyclovir stopped -CSF studies lackluster, clear, colorless, 8 WBCs, CSF glucose 80, total protein 98, does have type 2 diabetes -Did have elevated lead levels during his last hospitalization, 6.7, has history of shrapnel in the neck, repeat lead levels -Follow blood cultures, so far no growth -CSF culture so far no growth -Follow urine culture, no growth -Viral studies ordered pending -Cryptococcal CSF antigen negative -Fungal studies LDH, beta glucan -LDH, beta glucan - cannot do MRI due to shrapnel -Likely Warnicke's encephalopathy and Korsakoff syndrome, continue high-dose thiamine 500 mg IV every 8 hours for 48 hours then switch to 250 mg IV daily Continue tamsulosin -EEG within normal limits Neurochecks, and a stroke scale cardiac echo CONCLUSIONS LV systolic function is normal with EF of 55-60% Mild mitral regurgitation Aortic root is mildly dilated Biatrial dilation Compared to prior echocardiogram from 2022, no significant changes are seen. carotid ultrasound CONCLUSIONS Bilateral ICA stenosis less than 50%. Moderate carotid atherosclerosis. Irregular plaque at the bifurcations. Cardiac echo CT chest abdomen pelvis CT/[place] [id number] IMPRESSION: 1. Quality is compromised by breathing motion artifact and movement. 2. Stable spiculated nodule with pleural tagging in the RIGHT upper lobe. 3. New opacifications consistent with pneumonia LEFT upper lobe and LEFT lower lobes. 4. Mildly hydropic gallbladder with layering stones or stones. This can be further evaluated by ultrasound if thought clinically necessary. 5. Numerous bilateral renal cysts with no renal obstruction. 6. Multiple supraumbilical abdominal wall hernias contain fat only. 7. Diverticulosis without acute diverticulitis. 8. Ash catheter present in a nondistended bladder. Marked distention of the bladder wall be due to chronic outlet obstruction. crp 11.1, Pro-Ethan 0.03, sed rate 9, RPR pending, folic acid wnl, TSH wnl, B12 wnl, GELY, HIV wnl, acute hep panel wnl, tick panel pending Acute hypoxic respiratory failure secondary to pneumonia, -Currently on room air -DuoNeb Atrial fibrillation amiodarone on 400mg twice daily, added metoprolol 25 twice daily, Eliquis therapy COPD: Currently saturating well on room air Continue thiamine Patient may need Michelle psych placement Agitation Zyprexa as needed Full code Dysphagia level 4 diet PDMP PDMP Reviewed: Last Reviewed 11/16/24 08:58 by Stevie Davila MD Attestations 2 Medical Necessity Statement*: Patient requires hospitalization for Warnicke's encephalopathy Diagnoses Delirium R41.0 Diabetes mellitus E11.9 Diabetic peripheral neuropathy associated with type 2 diabetes mellitus E11.42 Permanent atrial fibrillation I48.21 Atrial fibrillation type: permanent Right upper lobe pulmonary nodule R91.1 Centrilobular emphysema J43.2 COPD type: emphysema Emphysema type: centrilobular Urinary retention R33.9 Pneumonia J18.9 Acute hypoxic respiratory failure J96.01 Atrial fibrillation with rapid ventricular response I48.91 Wernicke encephalopathy E51.2
[2024-11-21 17:15] LABS: E. Chaffeensis AB IGG <1:64; E. Chaffeensis AB IGM <1:20; RMSF IGG NOT DETECTED; RMSF IGM NOT DETECTED
[2024-11-21 17:22] LABS: Glucose Point of Care 105 mg/dL (70-110)
[2024-11-21] MEDS: amoxicillin-clav 875-125 mg Tablet 1 TAB PO (17:22)
[2024-11-21] MEDS: tamsulosin 0.4 mg Capsule 0.8 MG PO (20:33)
[2024-11-21 21:24] LABS: Glucose Point of Care 106 mg/dL (70-110)
[2024-11-22] VITALS (8 sets, daily range): BP systolic 117–132; BP diastolic 68–78; PULSE 58–83; RESP 16–19; TEMP 36.5–36.8; O2SAT 93–98; BMI 24.1
[2024-11-22] MEDS: THIAMINE 200 MG IV (00:39)
[2024-11-22] MEDS: sodium chloride 0.9% (100 ml) 100 ML 200 ML (00:45)
[2024-11-22] MEDS: ipratropium-albuterol 3 mL Neb INHALATION ×2 (02:02→08:31)
[2024-11-22] MEDS: gabapentin 100 mg Capsule PO ×2 (03:02→10:11)
[2024-11-22 04:40] LABS: Basophils # 0.1 10^3/uL (0.0-0.1); Basophils % 0.9 %; Eosinophils # 0.6 10^3/uL (0.0-0.8); Eosinophils % 8.6 %; Hematocrit 32.2 % (37-53); Lymphocytes # 1.8 10^3/uL (0.8-4.8); Lymphocytes % 25.4 %; Mean Corpuscular HGB Conc 31.1 g/dL (30-55); Mean Corpuscular Hemoglobin 28.2 pg (27-33); Mean Platelet Volume 10.1 fL (7.4-10.4); Monocytes # 0.5 10^3/uL (0.2-0.9); Monocytes % 7.5 %; Neutrophils # 3.96 10^3/uL (1.8-7.7); Neutrophils % 57.3 %; Nucleated Red Blood Cells % 0 %; Platelet Count 246 10^3/cmm (157-399); Red Blood Count 3.54 10^6/uL (3.85-5.65)
[2024-11-22 04:55] LABS: Alanine Aminotransferase 9 U/L (0-41); Alkaline Phosphatase 76 U/L (40-130); Anion Gap 14.6 (5-19); Aspartate Amino Transferase 12 U/L (0-40); Blood Urea Nitrogen 15 mg/dL (8-23); Calcium 8.6 mg/dL (8.5-10.5); Carbon Dioxide 20 mmol/L (22-29); Chloride 110 mmol/L (98-107); Creatinine Clr Calc Pharmacy 63.7313; Globulin 2.3 g/dL (1.3-4.6); Glucose 97 mg/dL (65-115); Magnesium 1.9 mg/dL (1.7-2.3); Osmolality Calculated 293 mOsm/kg (285-295); Phosphorus 2.1 mg/dL (2.5-4.5); Potassium 3.6 mmol/L (3.5-5.1); Sodium 141 mmol/L (136-145); Total Bilirubin 0.4 mg/dL (0.15-1.2); Total Protein 5.3 g/dL (6.6-8.7)
[2024-11-22 06:31] LABS: Glucose Point of Care 101 mg/dL (70-110)
[2024-11-22] MEDS: amiodarone 200 mg Tablet 400 MG PO (10:10)
[2024-11-22] MEDS: topiramate 25 mg Tablet 50 MG PO (10:11)
[2024-11-22] MEDS: apixaban 5 mg Tablet PO (10:11)
[2024-11-22] MEDS: amoxicillin-clav 875-125 mg Tablet 1 TAB PO (10:11)
[2024-11-22] MEDS: metoprolol tartrate 25 mg Tablet PO (10:11)
[2024-11-22] MEDS: nystatin 100,000 unit/mL UDC 5 mL 100000 UNIT PO ×2 (10:11→11:45)
[2024-11-22] MEDS: thiamine 500 MG in sodium chloride 0.9% (100 ml) 100 ML 210 MG IV (10:13)
[2024-11-22] MEDS: insulin lispro 100 unit/1 mL SUBCUT (11:45)
[2024-11-22 11:51] LABS: Glucose Point of Care 159 mg/dL (70-110)
--- NOTE | 2024-11-22 13:06 | PM.DCS ---
Discharge Providers Date of Admission: 11/15/24 22:37 Date of Discharge: November 22, 2024 Attending Provider at Admission: Alexys Solorzano MD Attending Provider at Discharge: Stevie Davila MD Primary Care Provider: Chuy Baca DO Diagnoses at Discharge Discharge Diagnosis (1) Delirium: Status: Acute (2) Diabetes mellitus: Status: Acute (3) Diabetic peripheral neuropathy associated with type 2 diabetes mellitus: Status: Acute (4) Atrial fibrillation: Status: Acute Qualifiers: Atrial fibrillation type: permanent Qualified Code(s): I48.21 - Permanent atrial fibrillation (5) Right upper lobe pulmonary nodule: Status: Acute (6) COPD (chronic obstructive pulmonary disease): Status: Acute Qualifiers: COPD type: emphysema Emphysema type: centrilobular Qualified Code(s): J43.2 - Centrilobular emphysema (7) Urinary retention: Status: Acute (8) Pneumonia: Status: Acute (9) Acute hypoxic respiratory failure: Status: Acute (10) Atrial fibrillation with rapid ventricular response: Status: Acute (11) Wernicke encephalopathy: Status: Acute Reason for Visit Reason for Visit: gen. wealness / sleepness - confused Hospital Course Hospital Course Jace Christie is a 74 year old male with medical history of diabetes, moderate COPD not on oxygen, atrial fibrillation on Eliquis, history of GI bleed, history of BPH, who presents [facility] due to altered mental status Patient had a prolonged hospitalization for altered mental status with an exhaustive workup -Initially when he had presented the thought was his altered mental status was secondary to urinary retention, Bobo catheter was placed and he was observed, however continued to have episodes of confusion/agitation -CT imaging of the head had no acute findings ? CT of the chest did show evidence of pneumonia, he was started on broad-spectrum antibiotic therapy, so certainly this could be playing a role in terms of patient's acute toxic encephalopathy -His blood cultures so far unremarkable -MRI of the brain could not be performed given his shrapnel in his neck -There was thought certainly lead toxicity could be playing a role however his lead levels were found low at 4.1 -There was concerns for possible encephalitis as an etiology was started on acyclovir, lumbar puncture performed, CSF studies were unrevealing, however viral studies have been ordered and are pending -I think the likelihood of patient having viral meningitis is fairly unlikely, however his viral studies are pending -There was concern for Warnicke's encephalopathy, he was started on IV thiamine, since starting IV thiamine his mentation significantly improved, confusion improved, thus thiamine deficiency could be playing a significant role into patient's altered mental status, he received IV thiamine as it patient -He will be discharged on p.o. thiamine on discharge -EEG was performed, no acute findings neurology was consulted -On discharge she will be discharged with Bobo catheter in place due to BPH with outpatient follow-up with urology ? Discharge on p.o. antibiotics for pneumonia -For his spiculated nodule right upper lobe, follow-up with primary care for repeat CT imaging in 1 month, referral to pulmonary in [place] -On discharge patient is alert oriented x 3, following all commands, ambulating without significant assistance, has no complaints Physical Exam Const: COMMON NORMALS: no acute distress and patient oriented x3 Resp: COMMON NORMALS: normal respiratory effort, No retractions, No use of accessory muscles and clear to auscultation bilaterally AUSCULTATION: clear to auscultation bilaterally Cardio: COMMON NORMALS: regular rate, regular rhythm, S1 normal heart sound present and S2 normal heart sound present RATE: regular rate RHYTHM: regular rhythm HEART SOUNDS: S1 normal heart sound present and S2 normal heart sound present GI: COMMON NORMALS: Normal to inspection, nondistended, normoactive bowel sounds present and non-tender Extremity: COMMON NORMALS: no pedal edema Neuro: COMMON NORMALS: patient oriented x3, CN's II-XII intact bilaterally, moves all extremities and no focal motor deficits Psych: COMMON NORMALS: mental status grossly normal Urinary Catheter Management: Bobo: Cath Placed During This Visit: yes Reason for Continuing Indwelling Catheter: Acute Urinary Retention or Obstruction Urinary Catheter Date of Insertion: 11/16/24 Urinary Catheter Time of Insertion: 01:36 Discharge Data Studies Completed and Pending Completed Studies During Hospitalization Category [place] [id number] Routine Cat Scan 11/17/24 13:[address] head wo con* [id number] Stat Cat Scan 11/15/24 14:03 Completed FL guided lumbarpunc dx* [id number] Routine Exams 11/18/24 11:13 Completed XR chest 1V portable [id number] Stat Exams 11/15/24 14:03 Completed XR chest 1V portable [id number] Stat Exams 11/16/24 15:22 Completed XR chest 1V portable [id number] Stat Exams 11/18/24 19:32 Completed CV carotid duplex BI* [id number] Routine Ultrasound 11/17/24 13:03 Completed CV. echo complete* [id number] Routine Ultrasound 11/17/24 13:03 Completed Pending at discharge Category Date Time Status EEG electroencephalogram Routine Exams 11/18/24 16:53 Ordered 1-3 Beta D Glucan [Fungitell Glucan Assay (Blood)] Lab 11/18/24 17:25 Received Routine GELY Profile Rheumatology Stat Lab 11/16/24 15:02 Results Adenosine Deaminase CSF Routine Lab 11/18/24 16:23 Received Aspergillus AG,EIA,Serum Stat Lab 11/18/24 17:25 Received Blastomyces AB Panel CF and ID Stat Lab 11/18/24 17:25 Received Blood Culture Stat Lab 11/17/24 17:47 Results CMV PCR [CYTOMEGALOVIRUS DNA, QN, REAL] Routine Lab 11/18/24 17:25 Received CSF Culture Stat Lab 11/18/24 16:59 Results Cryptococcal Antigen (CSF) Stat Lab 11/18/24 16:59 Results Cryptococcal Antigen w/ Reflex Stat Lab 11/18/24 17:25 Received Echovirus Antibodies, CSF Routine Lab 11/18/24 16:23 Received Herpes Simplex Virus DNA Stat Lab 11/18/24 16:23 Received Histoplasma Galactomannan Ag Routine Lab 11/18/24 16:53 Ordered Immunofixation, CSF Routine Lab 11/18/24 16:23 Received Lead, (Venous) Routine Lab 11/18/24 17:25 Results Lymes Disease Antibodies CSF Stat Lab 11/16/24 13:03 Received Myelin Oligodendrocyte AB CSF Routine Lab 11/18/24 16:23 Received Oligoclonal Bands IGG, CSF Stat Lab 11/18/24 16:23 Received Sputum Culture and Gram Stain Stat Lab 11/17/24 16:54 Uncollected [place] Enceph.Virus IFA CSF Stat Lab 11/18/24 16:23 Received VDRL on CSF Stat Lab 11/19/24 16:58 Received Vitamin B1 (Thiamine),Blood Routine Lab 11/20/24 18:16 Received Radiology Impressions Head CT 11/15/24 14:03 IMPRESSION: Negative for intracranial hemorrhage or mass effect. Chest/Abdomen/Pelvis CT 11/17/24 13:03 IMPRESSION: 1. Quality is compromised by breathing motion artifact and movement. 2. Stable spiculated nodule with pleural tagging in the RIGHT upper lobe. 3. New opacifications consistent with pneumonia LEFT upper lobe and LEFT lower lobes. 4. Mildly hydropic gallbladder with layering stones or stones. This can be further evaluated by ultrasound if thought clinically necessary. 5. Numerous bilateral renal cysts with no renal obstruction. 6. Multiple supraumbilical abdominal wall hernias contain fat only. 7. Diverticulosis without acute diverticulitis. 8. Bobo catheter present in a nondistended bladder. Marked distention of the bladder wall be due to chronic outlet obstruction. Lumbar Puncture Fluoroscopy 11/18/24 11:13 IMPRESSION: Uncomplicated fluoroscopically guided lumbar puncture. Chest X-Ray 11/18/24 19:32 IMPRESSION: 1. Multifocal airspace disease involving the left mid and lower lung field. 2. Pulmonary emphysematous changes. 3. Cardiomegaly. Laboratory Results WBC 6.90 10^3/uL (3.29-11.43) 11/22/24 04:12 RBC 3.54 10^6/uL (3.85-5.65) L 11/22/24 04:12 Hgb 10.00 g/dL (11.27-16.99) L 11/22/24 04:12 Hct 32.2 % (37-53) L 11/22/24 04:12 MCV 91.0 fl (82-101) 11/22/24 04:12 MCH 28.2 pg (27-33) 11/22/24 04:12 MCHC 31.1 g/dL (30-55) D 11/22/24 04:12 RDW 15.0 % (12.1-15.1) 11/22/24 04:12 Plt Count 246 10^3/cmm (157-399) 11/22/24 04:12 MPV 10.1 fL (7.4-10.4) 11/22/24 04:12 Neut % (Auto) 57.3 % 11/22/24 04:12 Lymph % (Auto) 25.4 % 11/22/24 04:12 [place] % (Auto) 7.5 % 11/22/24 04:12 Eos % (Auto) 8.6 % 11/22/24 04:12 Baso % (Auto) 0.9 % 11/22/24 04:12 Neut # (Auto) 3.96 10^3/uL (1.8-7.7) 11/22/24 04:12 Lymph # (Auto) 1.8 10^3/uL (0.8-4.8) 11/22/24 04:12 [place] # (Auto) 0.5 10^3/uL (0.2-0.9) 11/22/24 04:12 Eos # (Auto) 0.6 10^3/uL (0.0-0.8) 11/22/24 04:12 Baso # (Auto) 0.1 10^3/uL (0.0-0.1) 11/22/24 04:12 Nucleated RBC % (auto) 0 % 11/22/24 04:12 Nucleated RBCs # 0.0 /100WBC 11/22/24 04:12 ESR 16 mm/hr (0-10) H 11/18/24 02:39 PT 13.60 SECONDS (12.1-14.9) 11/15/24 14:44 INR 0.97 (0.8-1.2) 11/15/24 14:44 APTT 34.2 SECONDS (23.9-36.7) 11/15/24 14:44 Specimen Type Arterial 11/18/24 19:42 Sample Site Brachial, right 11/18/24 19:42 ABG pH 7.42 (7.35-7.45) 11/18/24 19:42 ABG pCO2 32.2 mmHg (35-45) L 11/18/24 19:42 ABG pO2 62.0 mmHg (80.0-100.0) L 11/18/24 19:42 ABG PO2/FiO2 Ratio 345 11/16/24 16:05 ABG HCO3 20.8 mmol/L (22-26) L 11/18/24 19:42 ABG O2 Saturation 93.3 11/18/24 19:42 ABG Base Excess -3.0 mmol/L (-2.0-2.0) L 11/18/24 19:42 Cesar Test N/a 11/18/24 19:42 A-a O2 Gradient 6.3 mmHg (5-10) 11/18/24 19:42 Hematocrit 36.0 % (42-52) L 11/18/24 19:42 Hgb O2 Saturation 91.9 % (95-100) L 11/18/24 19:42 Carboxyhemoglobin 1.3 %THgb (0.4-20.1) 11/18/24 19:42 Methemoglobin 0.2 % (0.4-1.5) L 11/18/24 19:42 Total Hemoglobin 11.7 g/dL (14-18) L 11/18/24 19:42 Sodium 146.0 mmol/L (131-143) H 11/18/24 19:42 Potassium 3.3 mmol/L (3.5-5.0) L 11/18/24 19:42 Glucose 112.0 mg/dL (70-115) 11/18/24 19:42 Ionized Calcium 1.2 mmol/L (1.1-1.4) 11/18/24 19:42 O2 Delivery Device Nc 11/18/24 19:42 O2 Liters/Min 2.0 % 11/18/24 19:42 FiO2 21.0 % 11/16/24 16:05 Seismograph Shooter ID [email or web address] 11/18/24 19:42 Sodium 141 mmol/L (136-145) 11/22/24 04:12 Potassium 3.6 mmol/L (3.5-5.1) 11/22/24 04:12 Chloride 110 mmol/L (98-107) H 11/22/24 04:12 Carbon Dioxide 20 mmol/L (22-29) L 11/22/24 04:12 Anion Gap 14.6 (5-19) 11/22/24 04:12 BUN 15 mg/dL (8-23) 11/22/24 04:12 Creatinine 1.2 mg/dL (0.7-1.2) 11/22/24 04:12 GFR Calculation Not Reportable 11/22/24 04:12 Glucose 97 mg/dL (65-115) 11/22/24 04:12 POC Glucose 159 mg/dL (70-110) H 11/22/24 11:23 Calculated Osmolality 293 mOsm/kg (285-295) 11/22/24 04:12 Lactic Acid 1.0 mmol/L (0.5-2.2) 11/16/24 15:02 Lactate 0.8 mmol/L (0.5-2.2) 11/21/24 05:12 Calcium 8.6 mg/dL (8.5-10.5) 11/22/24 04:12 Phosphorus 2.1 mg/dL (2.5-4.5) L 11/22/24 04:12 Magnesium 1.9 mg/dL (1.7-2.3) 11/22/24 04:12 Iron 39 ug/dL (59-158) L 11/16/24 05:48 Ferritin 129 ng/mL (30-400) 11/16/24 05:48 Total Bilirubin 0.4 mg/dL (0.15-1.2) 11/22/24 04:12 AST 12 U/L (0-40) 11/22/24 04:12 ALT 9 U/L (0-41) 11/22/24 04:12 Alkaline Phosphatase 76 U/L (40-130) 11/22/24 04:12 Ammonia 34 umol/L (16-60) 11/15/24 23:36 Lactate Dehydrogenase 152 U/L (135-225) 11/18/24 17:25 C-Reactive Protein 25.0 mg/L (0.0-4.9) H 11/21/24 05:12 NT-Pro-B Natriuret Pep 1135 pg/mL (0-125) H 11/21/24 05:12 Total Protein 5.3 g/dL (6.6-8.7) L 11/22/24 04:12 Albumin 3.0 g/dL (3.5-5.2) L 11/22/24 04:12 Globulin 2.3 g/dL (1.3-4.6) 11/22/24 04:12 Vitamin B12 435 pg/mL (232-1245) 11/15/24 14:44 25-OH Vitamin D Total 20 ng/mL (30-100) L 11/19/24 03:22 Folate 14.7 ng/mL (4.5-32.2) 11/19/24 03:22 Procalcitonin 0.04 ng/mL (0-0.5) 11/21/24 05:12 TSH 1.43 uIU/mL (0.27-4.20) 11/15/24 14:44 Urine Color Yellow (Yellow) 11/15/24 18:38 Urine Appearance Clear (CLEAR) 11/15/24 18:38 Urine pH 6.0 (5-7) 11/15/24 18:38 Ur Specific [place] 1.010 (1.005-1.030) 11/15/24 18:38 Urine Protein Negative (Negative) 11/15/24 18:38 Urine Glucose (UA) Negative (Normal) 11/15/24 18:38 Urine Ketones Negative (Negative) 11/15/24 18:38 Urine Blood Negative (Negative) 11/15/24 18:38 Urine Nitrate Negative (Negative) 11/15/24 18:38 Urine Bilirubin Negative (Negative) 11/15/24 18:38 Urine Urobilinogen 0.2 mg/dL (Negative) 11/15/24 18:38 Ur Leukocyte Esterase Negative (Negative) 11/15/24 18:38 Amorphous Sediment Not Reportable 11/15/24 18:38 CSF Appearance Clear (CLEAR) 11/18/24 16:23 CSF Color Colorless (COLORLESS) 11/18/24 16:23 CSF Specific [place] 1.006 11/18/24 16:23 CSF Specific [place] Cancelled 11/18/24 16:23 CSF WBC 8 /uL (0-5) H 11/18/24 16:23 CSF RBC 0 10^3/uL (0-0) 11/18/24 16:23 CSF Mononuclear # Auto 0.006 10^3/uL (50-90) L 11/18/24 16:23 CSF Mononuclear WBCs % 75 % (50-90) 11/18/24 16:23 CSF Polynuclear WBCs # 0.002 10^3/uL (0-10) 11/18/24 16:23 CSF Polynuclear WBCs % 25 % (0-10) H 11/18/24 16:23 CSF Diff Comment Yes 11/18/24 16:23 CSF Glucose 80 mg/dL (40-70) H 11/18/24 16:23 CSF Total Protein 98 mg/dL (15-45) H 11/18/24 16:23 CSF Total Protein Cancelled 11/18/24 16:23 Vancomycin Trough 20.2 ug/mL (10-15) H 11/20/24 06:02 Salicylates < 0.3 mg/dL (3-10) L 11/15/24 14:44 Urine Opiates Screen Negative ng/mL (Negative) 11/15/24 18:38 Acetaminophen < 5.0 ug/mL (10-30) L 11/15/24 14:44 Ur Barbiturates Screen Negative ng/mL (Negative) 11/15/24 18:38 Ur Phencyclidine Scrn Negative ng/mL (Negative) 11/15/24 18:38 Ur Amphetamines Screen Negative ng/mL (Negative) 11/15/24 18:38 U Benzodiazepines Scrn Negative ng/mL (Negative) 11/15/24 18:38 Urine Cocaine Screen Negative ng/mL (Negative) 11/15/24 18:38 U Marijuana (THC) Screen Negative ng/mL (Negative) 11/15/24 18:38 Ethyl Alcohol < 10 mg/dL (0-10) 11/15/24 23:36 Lead 4.1 mcg/dL (<3.5) H 11/18/24 17:25 GELY Nuclear Membr Pat A 11/16/24 15:02 GELY IFA Animal Tis Ttr 1:80 titer H 11/16/24 15:02 GELY IFA Animal Tis Res Positive (NEGATIVE) A 11/16/24 15:02 RAMON-1 Antibody <1.0 neg AI (<1.0 NEG) 11/16/24 15:02 SS-A Antibody <1.0 neg AI (<1.0 NEG) 11/16/24 15:02 SS-B Antibody <1.0 neg AI (<1.0 NEG) 11/16/24 15:02 Sm (Rain) Antibody <1.0 neg AI (<1.0 NEG) 11/16/24 15:02 P[employer] P[employer] WORKER Antibody <1.0 neg AI (<1.0 NEG) 11/16/24 15:02 Scl-70 Antibody <1.0 neg AI (<1.0 NEG) 11/16/24 15:02 Centromere B Antibody <1.0 neg AI (<1.0 NEG) 11/16/24 15:02 Complement C3c 130 mg/dL (82-185) 11/16/24 15:02 Complement C4c 25 mg/dL (15-53) 11/16/24 15:02 CH50 Classical Pathway 57 U/mL (31-60) 11/16/24 15:02 RPR w/Rflx to Titer Non-reactive (NON-REACTIVE) 11/16/24 15:02 Lyme Ab (Western Blot) <0.90 index 11/16/24 15:02 Coronavirus (PCR) Negative (Negative) 11/15/24 13:06 CMV IgG Ab 2.30 U/mL H 11/18/24 17:25 CMV IgM Ab <30.00 AU/mL 11/18/24 17:25 E. chaffeensis IgG Ab <1:64 11/16/24 15:02 E. chaffeensis IgM Ab <1:20 11/16/24 15:02 E. chaffeensis Interp See note 11/16/24 15:02 E. chaffeensis Comment Not Reportable 11/16/24 15:02 Hepatitis A IgM Ab Non-reactive (Nonreactive) 11/16/24 05:48 Hep Bs Antigen Non-reactive (Nonreactive) 11/16/24 05:48 Hep B Core IgM Ab Non-reactive (Nonreactive) 11/16/24 05:48 Hepatitis C Antibody Non-reactive (Nonreactive) 11/16/24 05:48 HSV I IgG Ab 32.00 index H 11/18/24 17:00 HSV II IgG <0.90 index 11/18/24 17:00 HIV 1&2 Ab & HIV 1 Ag Non-reactive (Non-Reactiv) 11/16/24 05:48 HIV 1&2 Antibody Non-reactive (Non-Reactiv) 11/16/24 05:48 Influenza A (PCR) Negative (Negative) 11/15/24 13:06 Influenza Type B (PCR) Negative (Negative) 11/15/24 13:06 RSV (PCR) Negative (Negative) 11/15/24 13:06 Rickettsia IgG Ab Not detected 11/16/24 15:02 Rickettsia IgM Ab Not detected 11/16/24 15:02 Vitals Last Vital Signs Temp 98.0 F 11/22/24 12:53 Pulse 83 11/22/24 12:53 Resp 18 11/22/24 12:53 BP 122/68 11/22/24 12:53 Pulse Ox 97 11/22/24 12:53 O2 Del Method Room Air 11/22/24 12:53 O2 Flow Rate 2 11/19/24 08:31 Discharge Plan Discharge Patient Disposition: Home Condition: Stable Prescriptions: New (DME) glucometer testing kit See Rx Instructions .Route .MEDSUPPLY Qty: 1 0RF Rx Instructions: As directed (DME) lancets Misc See Rx Instructions .Route Qty: 200 0RF Rx Instructions: check bs tid (DME) strips See Rx Instructions .Route .MEDSUPPLY Qty: 100 0RF Rx Instructions: check bs tid metoprolol tartrate 25 mg Tablet 25 mg PO BID@0900,2100 30 Days Qty: 60 0RF amoxicillin-pot clavulanate 875-125 mg tablet 1 tab PO BID 5 Days Qty: 10 0RF amiodarone [Pacerone] 200 mg Tablet See Rx Instructions .ROUTE .COMPLEX 30 Days Qty: 60 0RF Rx Instructions: Take 2 tablets daily for 5 days, followed by 1 tablet daily thiamine HCl (vitamin B1) 250 mg tablet 250 mg PO DAILY 30 Days Qty: 30 0RF metformin 500 mg tablet 500 mg PO DAILY 30 Days Qty: 30 0RF Continued potassium chloride 20 mEq tablet extended release 20 meq PO BID Qty: 60 2RF furosemide 40 mg tablet 40 mg PO DAILY (DME) Cam boot to right See Rx Instructions .Route .MEDSUPPLY Qty: 1 0RF Rx Instructions: As directed (DME) Diabetic Shoes with toe filler to right See Rx Instructions .Route .MEDSUPPLY Qty: 1 0RF Rx Instructions: As directed By CHAO&O Eliquis 5 mg tablet 5 mg PO BID baclofen 10 mg tablet 10 mg PO BID PRN (Reason: spasm) Qty: 60 0RF Breztri Aerosphere 160-9-4.8 mcg/actuation HFA aerosol inhaler 2 inh inhalation BID Qty: 10.7 12RF acetaminophen 500 mg Tablet 1,000 mg PO Q6H PRN (Reason: Pain) 14 Days Qty: 20 0RF tamsulosin 0.4 mg Capsule 0.8 mg PO BEDTIME albuterol sulfate 90 mcg/actuation HFA aerosol inhaler 2 puff inhalation Q8H PRN (Reason: shortness of breath or wheezing) topiramate 50 mg tablet 50 mg PO BID PRN (Reason: Pain) nitroglycerin 0.4 mg tablet, sublingual 0.4 mg sublingual Q5M PRN (Reason: chest pain) Qty: 25 0RF Rx Instructions: do not exceed 3 doses per episode gabapentin 100 mg Capsule 100 mg PO TID acetaminophen-codeine [Tylenol-Codeine #3] 300-30 mg Tablet 1 tab PO Q6H PRN (Reason: Pain) famotidine [Pepcid AC] 20 mg Tablet 20 mg PO BID trazodone 100 mg Tablet 50 mg PO BEDTIME Discontinued midodrine 10 mg tablet 10 mg PO TID Qty: 90 3RF Rx Instructions: do not give last dose of day after 6PM or within 4 hrs of bedtime diltiazem HCl [Cardizem] 30 mg tablet 30 mg PO Q8H PRN (Reason: for heart rate greater than 120) Rx Instructions: for H/R > 120 Discharge Orders: Discharge Order (Routine); Ordered 11/22/24 Ordered By: Stevie Davila Referrals: Berny Parks MD [Physician] - 1 week Daniel Burns MD [Referring] - 1 week (bobo cath in place) Chuy Baca, DO [Primary Care Provider] - Maurizio Melchor MD, MBBS, MPH [Referring] - 1 month (pulm nodule) Discharge Diet: Cardiac Discharge Activity: Resume usual activity Patient Instructions: Altered Mental Status (ED), Opioid Safety Activity Restrictions/Additional Instructions: - For urinary retention please keep Bobo catheter in place -Please follow-up with Dr. Mares in [place] for removal of Bobo catheter, intervention for your BPH -Please follow-up with neurology -Please continue taking thiamine -If you develop further episodes of confusion please come back to the emergency room -For your type 2 diabetes mellitus, please follow-up with primary care provider -Please monitor your blood sugars closely -Monitor your blood sugars 3 times daily as after meals -Please record your blood sugars, and a blood sugar log -If your blood sugar is greater than 500 go to the emergency room -If your blood sugar is less than 60 or at anytime you feel lightheaded or dizzy or diaphoretic or have chest palpitations check your blood sugar, and eat a hard candy or drink orange juice and go immediately to the emergency room -Remember hypoglycemia kills, so if his blood sugar is less than 60 we have to increase it by taking in a sugary meal such as a hard candy or orange juice and go to the emergency room -If you have any questions please call us where here to help Discharge Attestations Time Spent in Discharge Care*: greater than 30 min Quality Metrics Clinical Quality Measures [ No reported AMI, CVA or VTE this stay] Coding Level of Care Code 94231 Total time (in minutes) for Discharge: 45 Diagnoses Delirium R41.0 Diabetes mellitus E11.9 Diabetic peripheral neuropathy associated with type 2 diabetes mellitus E11.42 Permanent atrial fibrillation I48.21 Atrial fibrillation type: permanent Right upper lobe pulmonary nodule R91.1 Centrilobular emphysema J43.2 COPD type: emphysema Emphysema type: centrilobular Urinary retention R33.9 Pneumonia J18.9 Acute hypoxic respiratory failure J96.01 Atrial fibrillation with rapid ventricular response I48.91 Wernicke encephalopathy E51.2
--- NOTE | 2024-11-22 15:29 | PC.NURSE ---
PT LEFT PRIOR TO RECEIVING MEDICATIONS. NOTIFIED PT. MEDICATIONS IN [facility]. PT STATES THAT SECURITY TOOK KEYS; HOWEVER, I ASKED LEANDRO IN SECURITY AND THEY WERE NOT LOCKED THERE.
[2024-11-22 15:41] LABS: Fungitell 1-3-B Glucan Assay 40 pg/ml; Interpretation Negative (Negative)
[2024-11-22 20:00] LABS: Adenosine Deaminase CSF 0.6 U/L (<7.0)
[2024-11-22 20:19] LABS: Myelin Oligodendrocyte CBA CSF NEGATIVE (NEGATIVE)
[2024-11-22 20:30] LABS: Lyme Disease AB (IGG),IBL NO BANDS DETECTED; Lyme Disease AB (IGM), IBL NO BANDS DETECTED
[2024-11-23 00:39] LABS: VDRL on CSF NON-REACTIVE
[2024-11-23 16:04] LABS: CMV DNA By PCR Not Detected (Not Detected); CMV DNA, QN PCR Not Detected Log IU/mL (Not Detected)
[2024-11-23 18:35] LABS: HSV 1 DNA Not Detected (Not Detected); HSV 2 DNA Not Detected (Not Detected); HSV Source Results Below
[2024-11-23 22:24] LABS: CSF Echovirus Type 11 AB <1:1; CSF Echovirus Type 30 AB <1:1; CSF Echovirus Type 4 AB <1:1; CSF Echovirus Type 7 AB <1:1; CSF Echovirus Type 9 AB <1:1
[2024-11-23 23:40] LABS: St. Louis Enceph.Virus IGG CSF <1:1; St. Louis Enceph.Virus IGM CSF <1:1
[2024-11-24 18:29] LABS: Aspergillus AG,EIA,Serum NOT DETECTED; Aspergillus Galactomannan Inde <0.50
[2024-11-24 19:05] LABS: Cryptococcal Source SERUM
[2024-11-24 19:44] LABS: THYROID PEROXIDASE ANTIBODIES 1 IU/mL (<9)
[2024-11-25 12:43] LABS: Collection Sample VENOUS
[2024-11-26 15:06] LABS: Oligoclonal Bands IGG, CSF ABSENT (ABSENT)
[2024-11-27 13:04] LABS: Vitamin B1 (Thiamine),Blood >1200 nmol/L (78-185)
[2024-11-27 14:54] LABS: Blastomyces AB Immunodiffusion Negative (Negative); Blastomyces Dermatitidis AB <1:8 titer (<1:8)
[2024-11-30 22:35] LABS: DNA AB (DS) CRITHIDIA,IFA NEGATIVE (NEGATIVE)
== END 2024-11-22 15:31 | disposition home or self-care (01) | DRG 91 ==
LOC: ER 22:57 → ER IP 11-16 00:26 → MEDSURG 11-16 14:46 → CSU 11-16 14:46 → ER IP 11-16 15:40 → CSU 11-16 16:00 → MEDSURG 11-21 19:50
PROVIDERS: Emergency Medicine; Psychiatry & Neurology Neurology; Admitting Provider Internal Medicine; Emergency Provider Emergency Medicine; PCP Emergency Medicine Emergency Medical Services; Visit Provider Family Medicine
DX: G92.9 Unspecified toxic encephalopathy (principal); J18.9 Pneumonia, unspecified organism; J96.01 Acute respiratory failure with hypoxia; E51.2 Wernicke's encephalopathy; I48.21 Permanent atrial fibrillation; E11.42 Type 2 diabetes mellitus with diabetic polyneuropathy; R91.1 Solitary pulmonary nodule; J43.2 Centrilobular emphysema; N40.1 Benign prostatic hyperplasia with lower urinary tract symptoms; R33.8 Other retention of urine; F17.210 Nicotine dependence, cigarettes, uncomplicated; R45.1 Restlessness and agitation; Z79.01 Long term (current) use of anticoagulants
CPT/HCPCS: 36415; 36416; 36600; 51702; 62328; 70450; 71045; 71250; 74176; 80048; 80051; 80053; 80074; 80202; 80306; 80307; 80503; 81003; 82140; 82306; 82330; 82607; 82728; 82746; 82803; 82805; 82945; 82962; 83540; 83605; 83615; 83655; 83735; 83880; 83916; 84100; 84145; 84157; 84311; 84315; 84425; 84443; 85025; 85610; 85651; 85730; 86140; 86160; 86162; 86235; 86255; 86335; 86376; 86403; 86592; 86612; 86617; 86618; 86653; 86658; 86666; 86695; 86696; 86757; 87040; 87070; 87075; 87086; 87205; 87305; 87327; 87449; 87496; 87530; 87637; 87806; 89050; 92523; 92526; 92610; 93005; 93306; 93880; 94640; 94664; 95816; 96372; 96374; 96376; 97110; 97116; 97162; 97165; 97530; 99285; A4222; J0133; J0283; J1630; J1815; J2060; J2270; J2543; J3370; J3372; J3411; J3486; J3490; J7050

== ENCOUNTER 2024-12-08 14:45 | Inpatient (IN) | payer OTHER, SELFPAY ==
[2024-12-08] VITALS (14 sets, daily range): BP systolic 142–193; BP diastolic 82–130; PULSE 81–105; RESP 15–20; TEMP 36.7; O2SAT 93–98; BMI 23.1
--- NOTE | 2024-12-08 14:47 | ECG_ITS ---
[employer] Test Date: 2024-12-08 Pat Name: Jace Christie Department: Room: Gender: Male Sales Specialist: : [id number] Requested By: Jamie Daniel Order Number: [id number] Reading MD: SERVANDO MACKENZIE Measurements Intervals [place] Rate: 90 P: 0 [place]: 0 QRS: -38 QRSD: 95 T: -5 QT: 390 QTc: 478 Interpretive Statements ATRIAL FIBRILLATION LEFT AXIS DEVIATION [QRS AXIS < -30] ANTERIOR MYOCARDIAL INFARCTION , PROBABLY RECENT [40+ ms Q WAVE AND/OR ST/T ABNORMALITY IN V3/V4] Compared to ECG 11/15/2024 15:36:23 Left-axis deviation now present Incomplete right bundle-branch block no longer present Myocardial infarct finding still present Electronically Signed On 12-09-2024 23:35:50 TOWEL SEWER by SERVANDO MACKENZIE [email or web address] [id number]
--- NOTE | 2024-12-08 14:47 | XRR_ITS ---
PROCEDURE INFORMATION: Exam: XR Chest Exam date and time: 12/08/2024 2:56 PM Age: 74 years old Clinical indication: Cough and dyspnea; Additional info: Dyspnea/cough TECHNIQUE: Imaging protocol: Radiologic exam of the chest. Views: 1 view. COMPARISON: CR (CHEST, ) 11/18/2024 7:54 PM FINDINGS: Lungs: No consolidation. Pleural spaces: No pleural effusion. No pneumothorax. Heart/Mediastinum: Cardiomegaly. Bones/joints: Unremarkable. Soft tissues: Metallic foreign bodies project over the lower neck. XR/XR chest 1V portable [id number] IMPRESSION: Cardiomegaly.
--- NOTE | 2024-12-08 14:49 | W.ED.AMS ---
Documented by User: Jamie Lezama DO 12/10/24 06:03 HPI - Altered Mental Status General: Chief Complaint: Altered Mental Status Stated Complaint: ams Time Seen by Provider: 12/08/24 14:47 History of Present Illness: 74-year-old male brought in by EMS with complaint of altered mental status. Patient is unable to give any history. He is aggressive with myself and staff grabbing at her hands preventing us from doing any evaluation. He usually lives at home he was recently discharged with a UTI. No family available initially to give any further history Related Data Home Medications ?Medication ?Instructions ?Recorded ?Confirmed tamsulosin 0.4 mg capsule 0.8 mg PO BEDTIME 06/21/22 12/08/24 apixaban 5 mg tablet (Eliquis) 5 mg PO BID 03/20/23 12/08/24 albuterol sulfate 90 mcg/actuation 2 puff inhalation QID PRN 05/14/23 12/08/24 aerosol inhaler shortness of breath or wheezing furosemide 40 mg tablet 40 mg PO QAM 06/08/23 12/08/24 famotidine 20 mg tablet (Pepcid AC) 20 mg PO BID 11/16/24 12/08/24 gabapentin 100 mg capsule 100 mg PO TID 11/16/24 12/08/24 trazodone 100 mg tablet 50 mg PO BEDTIME 11/16/24 12/08/24 amiodarone 200 mg tablet (Pacerone) 200 mg PO DAILY 12/08/24 12/08/24 cadexomer iodine 0.9 % topical gel See Rx Instructions .Route .COMPLEX 12/08/24 12/08/24 ipratropium 0.5 mg-albuterol 3 mg 3 ml inhalation QID PRN Shortness 12/08/24 12/08/24 (2.5 mg base)/3 mL nebulization Of Breath soln Previous Rx's ?Medication ?Instructions ?Recorded acetaminophen 500 mg tablet 1,000 mg (2 x 500 mg) PO Q6H PRN 10/22/22 Pain 14 days #20 tabs Diabetic Shoes with toe filler to #1 ea 11/10/22 right baclofen 10 mg tablet 10 mg PO BID PRN spasm #60 tabs 05/02/23 potassium chloride 20 mEq 20 meq PO BID #60 tabs 05/02/23 tablet,extended release nitroglycerin 0.4 mg sublingual 0.4 mg sublingual Q5M PRN chest 05/15/23 tablet pain #25 tabs budesonide 160 mcg-glycopyr 9 2 inh inhalation BID #10.7 grams 02/26/24 mcg-formot 4.8 mcg/actuation HFA inhaler (Breztri Aerosphere) Cam boot to right #1 ea 04/28/24 glucometer testing kit #1 ea 11/22/24 lancets #200 ea 11/22/24 metformin 500 mg tablet 500 mg PO DAILY 30 days #30 tabs 11/22/24 metoprolol tartrate 25 mg tablet 25 mg PO BID@0900,2100 30 days #60 11/22/24 tabs strips #100 ea 11/22/24 thiamine HCl (vitamin B1) 250 mg 250 mg PO DAILY 30 days #30 tabs 11/22/24 tablet Allergies Allergy/AdvReac Type Severity Reaction Status Date / Time codeine (From AdvReac Mild ADR-Dizzine Verified 10/01/24 15:05 Tylenol-Codeine #3) ss Review of Systems Const: Denies: fever(s) or chills Card: Denies: chest pain Resp: Denies: dyspnea GI: Denies: abdominal pain : Denies: dysuria, urinary frequency or urinary urgency Musc: Denies: neck pain or back pain Skin/Breast: Denies: rash PFSH ED PFSH: Medical History Atrial fibrillation Diabetes mellitus Black tarry stools Melena Chronic anticoagulation Acute blood loss anemia Dehydration Shock Hypotension Atrial fibrillation with rapid ventricular response COPD (chronic obstructive pulmonary disease) Acute upper GI bleed Hyperglycemia COVID Hypoxemia COPD exacerbation Non-pressure 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 Dehiscence of amputation stump of right lower extremity Diabetic peripheral neuropathy associated with type 2 diabetes mellitus Surgical History 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 S/P foot surgery, right History of amputation of great toe Family History Denies family history of Cancer Social History Smoking and tobacco/nicotine status: current every day tobacco/nicotine user cigarettes Packs smoked per day: 1 Years cigarettes smoked: 53 [ Other cigarette details: Started at 1970] Physical Exam Const: GENERAL APPEARANCE: not cooperative ORIENTATION/CONSCIOUSNESS: Yes awake HENMT: COMMON NORMALS: normocephalic and atraumatic HEAD & SCALP: normocephalic and atraumatic Resp: COMMON NORMALS: normal respiratory effort, No retractions, No use of accessory muscles and clear to auscultation bilaterally AUSCULTATION: clear to auscultation bilaterally Cardio: COMMON NORMALS: regular rate, regular rhythm and No murmurs present (Cardio) RATE: regular rate RHYTHM: regular rhythm GI: COMMON NORMALS: Soft to palpation and No hepatosplenomegaly present AUSCULTATION: Yes normoactive bowel sounds PALPATION: Yes Soft to palpation, No Tenderness to palpation present (GI), No Guarding due to palpation present (GI) and Yes No hepatosplenomegaly present Extremity: COMMON NORMALS: normal to inspection, capillary refill normal, no clubbing, cyanosis or edema, no calf tenderness and no pedal edema Skin: COMMON NORMALS: no rashes or lesions noted GENERAL SKIN EXAM: no rashes or lesions noted Course Vital Signs: Vital signs: Vital Signs Temperature 97.6 F 12/10/24 04:00 Pulse Rate 79 12/10/24 04:00 Respiratory Rate 19 H 12/10/24 04:00 Blood Pressure 166/75 12/10/24 04:00 Pulse Oximetry 97 12/10/24 04:00 Oxygen Delivery Nj thod Room Air 12/10/24 04:00 MDM - Altered Mental Status Medical Decision Making Patient very aggressive and difficult to manage who tried multiple times to redirect he would not kill though. Patient became combative and aggressive with staff hitting grabbing spitting he was placed in restraints and sedated with Geodon and Ativan given a second 1 mg dose of Ativan to allow for further evaluation including CT. Patient care transitioned to pr at shift change. He has had a recurrent episode of acute psychosis and agitation. He had required multiple doses of sedative medications earlier today. He had been initially restrained. Upon my exam he is extremely somnolent and snoring. He responds minimally to painful stimuli. No longer requiring restraints. He appears dehydrated on exam. Mucosa very dry. So I am giving some fluids. His workup is negative for organic causes of this. He is now very somnolent and will not be able to be transferred to a psychiatric facility at this time. I requested admission to the hospitalist service but they declined saying that he needs transferred and they will not admit him. 12/09/2024 Patient remains sedated from his initial doses of Geodon and Ativan. He will respond by moaning with noxious stimuli. Will admit to hospitalist for further evaluation of encephalopathy. Some of this could be medications he may need to go to [facility] but this time he is not capable of being transferred to [facility] because of his encephalopathy. Medical Records I reviewed the patient's medical records. Lab Data I reviewed the patient's lab results. 12/09/24 02:57 12/09/24 02:57 Radiology Impressions Chest X-Ray 12/08/24 14:47 IMPRESSION: Cardiomegaly. Head CT 12/08/24 16:00 IMPRESSION: No acute intracranial abnormality. Laboratory Results WBC 15.01 10^3/uL (3.29-11.43) H 12/09/24 02:57 RBC 4.33 10^6/uL (3.85-5.65) 12/09/24 02:57 Hgb 12.40 g/dL (11.27-16.99) 12/09/24 02:57 Hct 39.2 % (37-53) 12/09/24 02:57 MCV 90.5 fl (82-101) D 12/09/24 02:57 MCH 28.6 pg (27-33) 12/09/24 02:57 MCHC 31.6 g/dL (30-55) 12/09/24 02:57 RDW 16.9 % (12.1-15.1) H 12/09/24 02:57 Plt Count 348 10^3/cmm (157-399) 12/09/24 02:57 MPV 9.3 fL (7.4-10.4) 12/09/24 02:57 Neut % (Auto) 78.4 % 12/09/24 02:57 Lymph % (Auto) 11.0 % 12/09/24 02:57 [place] % (Auto) 6.1 % 12/09/24 02:57 Eos % (Auto) 3.5 % 12/09/24 02:57 Baso % (Auto) 0.6 % 12/09/24 02:57 Neut # (Auto) 11.77 10^3/uL (1.8-7.7) H 12/09/24 02:57 Lymph # (Auto) 1.7 10^3/uL (0.8-4.8) 12/09/24 02:57 [place] # (Auto) 0.9 10^3/uL (0.2-0.9) 12/09/24 02:57 Eos # (Auto) 0.5 10^3/uL (0.0-0.8) 12/09/24 02:57 Baso # (Auto) 0.1 10^3/uL (0.0-0.1) 12/09/24 02:57 Nucleated RBC % (auto) 0 % 12/09/24 02:57 Nucleated RBCs # 0.0 /100WBC 12/09/24 02:57 Specimen Type Arterial 12/08/24 16:06 Sample Site Radial, right 12/08/24 16:06 ABG pH 7.41 (7.35-7.45) 12/08/24 16:06 ABG pCO2 32.5 mmHg (35-45) L 12/08/24 16:06 ABG pO2 70.1 mmHg (80.0-100.0) L 12/08/24 16:06 ABG PO2/FiO2 Ratio 333 12/08/24 16:06 ABG HCO3 20.5 mmol/L (22-26) L 12/08/24 16:06 ABG O2 Saturation 94.8 12/08/24 16:06 ABG Base Excess -3.4 mmol/L (-2.0-2.0) L 12/08/24 16:06 Cesar Test Pos 12/08/24 16:06 A-a O2 Gradient 4.9 mmHg (5-10) L 12/08/24 16:06 Hematocrit 36.1 % (42-52) L 12/08/24 16:06 Hgb O2 Saturation 91.5 % (95-100) L 12/08/24 16:06 Carboxyhemoglobin 2.5 %THgb (0.4-20.1) 12/08/24 16:06 Methemoglobin 0.9 % (0.4-1.5) 12/08/24 16:06 Total Hemoglobin 11.8 g/dL (14-18) L 12/08/24 16:06 Sodium 138.0 mmol/L (131-143) 12/08/24 16:06 Potassium 3.6 mmol/L (3.5-5.0) 12/08/24 16:06 Glucose 142.0 mg/dL (70-115) H 12/08/24 16:06 Ionized Calcium 1.2 mmol/L (1.1-1.4) 12/08/24 16:06 O2 Delivery Device Room air 12/08/24 16:06 FiO2 21.0 % 12/08/24 16:06 [employer] Amh 12/08/24 16:06 Sodium 135 mmol/L (136-145) L 12/09/24 02:57 Potassium 3.6 mmol/L (3.5-5.1) 12/09/24 02:57 Chloride 105 mmol/L (98-107) 12/09/24 02:57 Carbon Dioxide 18 mmol/L (22-29) L 12/09/24 02:57 Anion Gap 15.6 (5-19) 12/09/24 02:57 BUN 10 mg/dL (8-23) 12/09/24 02:57 Creatinine 0.8 mg/dL (0.7-1.2) 12/09/24 02:57 GFR Calculation Not Reportable 12/09/24 02:57 Glucose 104 mg/dL (65-115) 12/09/24 02:57 POC Glucose 145 mg/dL (70-110) H 12/08/24 15:56 Calculated Osmolality 279 mOsm/kg (285-295) L 12/09/24 02:57 Lactic Acid 1.1 mmol/L (0.5-2.2) 12/08/24 17:25 Calcium 8.4 mg/dL (8.5-10.5) L 12/09/24 02:57 Phosphorus 2.2 mg/dL (2.5-4.5) L 12/09/24 02:57 Magnesium 1.7 mg/dL (1.7-2.3) 12/09/24 02:57 Total Bilirubin 0.5 mg/dL (0.15-1.2) 12/09/24 02:57 AST 17 U/L (0-40) 12/09/24 02:57 ALT 13 U/L (0-41) 12/09/24 02:57 Alkaline Phosphatase 98 U/L (40-130) 12/09/24 02:57 Ammonia 32 umol/L (16-60) 12/08/24 17:25 Creatine Kinase 253 U/L (39-308) 12/08/24 17:25 Troponin T Baseline 42 ng/L (0-15) H 12/08/24 15:16 Troponin T 120 Minute 44.96 ng/L (0-15) H 12/08/24 17:25 Delta Troponin T 2.96 ABS# (0-10) 12/08/24 17:25 Total Protein 5.9 g/dL (6.6-8.7) L 12/09/24 02:57 Albumin 3.5 g/dL (3.5-5.2) 12/09/24 02:57 Globulin 2.4 g/dL (1.3-4.6) 12/09/24 02:57 Procalcitonin 0.05 ng/mL (0-0.5) 12/09/24 02:57 Urine Color Yellow (Yellow) 12/08/24 15:58 Urine Appearance Clear (CLEAR) 12/08/24 15:58 Urine pH 6.0 (5-7) 12/08/24 15:58 Ur Specific [place] 1.008 (1.005-1.030) 12/08/24 15:58 Urine Protein Negative (Negative) 12/08/24 15:58 Urine Glucose (UA) Negative (Normal) 12/08/24 15:58 Urine Ketones Negative (Negative) 12/08/24 15:58 Urine Blood Negative (Negative) 12/08/24 15:58 Urine Nitrate Negative (Negative) 12/08/24 15:58 Urine Bilirubin Negative (Negative) 12/08/24 15:58 Urine Urobilinogen 0.2 mg/dL (Negative) 12/08/24 15:58 Ur Leukocyte Esterase Negative (Negative) 12/08/24 15:58 Amorphous Sediment Not Reportable 12/08/24 15:58 Salicylates < 0.3 mg/dL (3-10) L 12/08/24 17:25 Urine Opiates Screen Negative ng/mL (Negative) 12/08/24 15:58 Ur Barbiturates Screen Negative ng/mL (Negative) 12/08/24 15:58 Ur Phencyclidine Scrn Negative ng/mL (Negative) 12/08/24 15:58 Ur Amphetamines Screen Negative ng/mL (Negative) 12/08/24 15:58 U Benzodiazepines Scrn Negative ng/mL (Negative) 12/08/24 15:58 Urine Cocaine Screen Negative ng/mL (Negative) 12/08/24 15:58 U Marijuana (THC) Screen Negative ng/mL (Negative) 12/08/24 15:58 Ethyl Alcohol < 10 mg/dL (0-10) 12/08/24 17:25 Discharge Plan Discharge Patient Disposition: Xfer Psychiatric Hosp Clinical Impression: Altered mental status, Acute psychosis, Encephalopathy Condition: Stable Coding Level of Care Code ED Inspector [employer] for g Fwd Face to Face: Restrn/Seclusion Events leading up to initiation: Demonstrating self-destructive behavior (cutting, hitting dhillon etc.) and Combative/Striking out at staff or others Evaluation of patient's immediate situation: No signs of physical distress Patient reaction since intervention applied: Continued attempts/displays harmful behavior Recent labs reviewed: Yes Review of medications: Yes Patient's current medical/behavioral condition: No new concerns since last ROS Need for restraint or seclusion is: Continued Attending notified: Yes Documented by User: Avani Segura MD 12/08/24 21:53 HPI - Altered Mental Status General: Chief Complaint: Altered Mental Status Stated Complaint: ams Time Seen by Provider: 12/08/24 14:47 Related Data Home Medications ?Medication ?Instructions ?Recorded ?Confirmed tamsulosin 0.4 mg capsule 0.8 mg PO BEDTIME 06/21/22 12/08/24 apixaban 5 mg tablet (Eliquis) 5 mg PO BID 03/20/23 12/08/24 albuterol sulfate 90 mcg/actuation 2 puff inhalation QID PRN 05/14/23 12/08/24 aerosol inhaler shortness of breath or wheezing furosemide 40 mg tablet 40 mg PO QAM 06/08/23 12/08/24 famotidine 20 mg tablet (Pepcid AC) 20 mg PO BID 11/16/24 12/08/24 gabapentin 100 mg capsule 100 mg PO TID 11/16/24 12/08/24 trazodone 100 mg tablet 50 mg PO BEDTIME 11/16/24 12/08/24 amiodarone 200 mg tablet (Pacerone) 200 mg PO DAILY 12/08/24 12/08/24 cadexomer iodine 0.9 % topical gel See Rx Instructions .Route .COMPLEX 12/08/24 12/08/24 ipratropium 0.5 mg-albuterol 3 mg 3 ml inhalation QID PRN Shortness 12/08/24 12/08/24 (2.5 mg base)/3 mL nebulization Of Breath soln Previous Rx's ?Medication ?Instructions ?Recorded acetaminophen 500 mg tablet 1,000 mg (2 x 500 mg) PO Q6H PRN 10/22/22 Pain 14 days #20 tabs Diabetic Shoes with toe filler to #1 ea 11/10/22 right baclofen 10 mg tablet 10 mg PO BID PRN spasm #60 tabs 05/02/23 potassium chloride 20 mEq 20 meq PO BID #60 tabs 05/02/23 tablet,extended release nitroglycerin 0.4 mg sublingual 0.4 mg sublingual Q5M PRN chest 05/15/23 tablet pain #25 tabs budesonide 160 mcg-glycopyr 9 2 inh inhalation BID #10.7 grams 02/26/24 mcg-formot 4.8 mcg/actuation HFA inhaler (Breztri Aerosphere) Cam boot to right #1 ea 04/28/24 glucometer testing kit #1 ea 11/22/24 lancets #200 ea 11/22/24 metformin 500 mg tablet 500 mg PO DAILY 30 days #30 tabs 11/22/24 metoprolol tartrate 25 mg tablet 25 mg PO BID@0900,2100 30 days #60 11/22/24 tabs strips #100 ea 11/22/24 thiamine HCl (vitamin B1) 250 mg 250 mg PO DAILY 30 days #30 tabs 11/22/24 tablet Allergies Allergy/AdvReac Type Severity Reaction Status Date / Time codeine (From AdvReac Mild ADR-Dizzine Verified 10/01/24 15:05 Tylenol-Codeine #3) [facility] ED PFSH: Medical History Atrial fibrillation Diabetes mellitus Black tarry stools Melena Chronic anticoagulation Acute blood loss anemia Dehydration Shock Hypotension Atrial fibrillation with rapid ventricular response COPD (chronic obstructive pulmonary disease) Acute upper GI bleed Hyperglycemia COVID Hypoxemia COPD exacerbation Non-pressure 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 Dehiscence of amputation stump of right lower extremity Diabetic peripheral neuropathy associated with type 2 diabetes mellitus Surgical History 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 S/P foot surgery, right History of amputation of great toe Family History Denies family history of Cancer Social History Smoking and tobacco/nicotine status: current every day tobacco/nicotine user cigarettes Packs smoked per day: 1 Years cigarettes smoked: 53 [ Other cigarette details: Started at 1970] Course Vital Signs: Vital signs: Vital Signs Temperature 97.6 F 12/10/24 04:00 Pulse Rate 79 12/10/24 04:00 Respiratory Rate 19 H 12/10/24 04:00 Blood Pressure 166/75 12/10/24 04:00 Pulse Oximetry 97 12/10/24 04:00 Oxygen Delivery Me thod Room Air 12/10/24 04:00 MDM - Altered Mental Status Medical Decision Making Patient care transitioned to pr at shift change. He has had a recurrent episode of acute psychosis and agitation. He had required multiple doses of sedative medications earlier today. He had been initially restrained. Upon my exam he is extremely somnolent and snoring. He responds minimally to painful stimuli. No longer requiring restraints. He appears dehydrated on exam. Mucosa very dry. So I am giving some fluids. His workup is negative for organic causes of this. He is now very somnolent and will not be able to be transferred to a psychiatric facility at this time. I requested admission to the hospitalist service but they declined saying that he needs transferred and they will not admit him. Reexamination in the morning and plan for transfer. Lab Data 12/09/24 02:57 12/09/24 02:57 Radiology Impressions Chest X-Ray 12/08/24 14:47 IMPRESSION: Cardiomegaly. Head CT 12/08/24 16:00 IMPRESSION: No acute intracranial abnormality. Laboratory Results WBC 15.01 10^3/uL (3.29-11.43) H 12/09/24 02:57 RBC 4.33 10^6/uL (3.85-5.65) 12/09/24 02:57 Hgb 12.40 g/dL (11.27-16.99) 12/09/24 02:57 Hct 39.2 % (37-53) 12/09/24 02:57 MCV 90.5 fl (82-101) D 12/09/24 02:57 MCH 28.6 pg (27-33) 12/09/24 02:57 MCHC 31.6 g/dL (30-55) 12/09/24 02:57 RDW 16.9 % (12.1-15.1) H 12/09/24 02:57 Plt Count 348 10^3/cmm (157-399) 12/09/24 02:57 MPV 9.3 fL (7.4-10.4) 12/09/24 02:57 Neut % (Auto) 78.4 % 12/09/24 02:57 Lymph % (Auto) 11.0 % 12/09/24 02:57 [place] % (Auto) 6.1 % 12/09/24 02:57 Eos % (Auto) 3.5 % 12/09/24 02:57 Baso % (Auto) 0.6 % 12/09/24 02:57 Neut # (Auto) 11.77 10^3/uL (1.8-7.7) H 12/09/24 02:57 Lymph # (Auto) 1.7 10^3/uL (0.8-4.8) 12/09/24 02:57 [place] # (Auto) 0.9 10^3/uL (0.2-0.9) 12/09/24 02:57 Eos # (Auto) 0.5 10^3/uL (0.0-0.8) 12/09/24 02:57 Baso # (Auto) 0.1 10^3/uL (0.0-0.1) 12/09/24 02:57 Nucleated RBC % (auto) 0 % 12/09/24 02:57 Nucleated RBCs # 0.0 /100WBC 12/09/24 02:57 Specimen Type Arterial 12/08/24 16:06 Sample Site Radial, right 12/08/24 16:06 ABG pH 7.41 (7.35-7.45) 12/08/24 16:06 ABG pCO2 32.5 mmHg (35-45) L 12/08/24 16:06 ABG pO2 70.1 mmHg (80.0-100.0) L 12/08/24 16:06 ABG PO2/FiO2 Ratio 333 12/08/24 16:06 ABG HCO3 20.5 mmol/L (22-26) L 12/08/24 16:06 ABG O2 Saturation 94.8 12/08/24 16:06 ABG Base Excess -3.4 mmol/L (-2.0-2.0) L 12/08/24 16:06 Cesar Test Pos 12/08/24 16:06 A-a O2 Gradient 4.9 mmHg (5-10) L 12/08/24 16:06 Hematocrit 36.1 % (42-52) L 12/08/24 16:06 Hgb O2 Saturation 91.5 % (95-100) L 12/08/24 16:06 Carboxyhemoglobin 2.5 %THgb (0.4-20.1) 12/08/24 16:06 Methemoglobin 0.9 % (0.4-1.5) 12/08/24 16:06 Total Hemoglobin 11.8 g/dL (14-18) L 12/08/24 16:06 Sodium 138.0 mmol/L (131-143) 12/08/24 16:06 Potassium 3.6 mmol/L (3.5-5.0) 12/08/24 16:06 Glucose 142.0 mg/dL (70-115) H 12/08/24 16:06 Ionized Calcium 1.2 mmol/L (1.1-1.4) 12/08/24 16:06 O2 Delivery Device Room air 12/08/24 16:06 FiO2 21.0 % 12/08/24 16:06 [employer] Amh 12/08/24 16:06 Sodium 135 mmol/L (136-145) L 12/09/24 02:57 Potassium 3.6 mmol/L (3.5-5.1) 12/09/24 02:57 Chloride 105 mmol/L (98-107) 12/09/24 02:57 Carbon Dioxide 18 mmol/L (22-29) L 12/09/24 02:57 Anion Gap 15.6 (5-19) 12/09/24 02:57 BUN 10 mg/dL (8-23) 12/09/24 02:57 Creatinine 0.8 mg/dL (0.7-1.2) 12/09/24 02:57 GFR Calculation Not Reportable 12/09/24 02:57 Glucose 104 mg/dL (65-115) 12/09/24 02:57 POC Glucose 145 mg/dL (70-110) H 12/08/24 15:56 Calculated Osmolality 279 mOsm/kg (285-295) L 12/09/24 02:57 Lactic Acid 1.1 mmol/L (0.5-2.2) 12/08/24 17:25 Calcium 8.4 mg/dL (8.5-10.5) L 12/09/24 02:57 Phosphorus 2.2 mg/dL (2.5-4.5) L 12/09/24 02:57 Magnesium 1.7 mg/dL (1.7-2.3) 12/09/24 02:57 Total Bilirubin 0.5 mg/dL (0.15-1.2) 12/09/24 02:57 AST 17 U/L (0-40) 12/09/24 02:57 ALT 13 U/L (0-41) 12/09/24 02:57 Alkaline Phosphatase 98 U/L (40-130) 12/09/24 02:57 Ammonia 32 umol/L (16-60) 12/08/24 17:25 Creatine Kinase 253 U/L (39-308) 12/08/24 17:25 Troponin T Baseline 42 ng/L (0-15) H 12/08/24 15:16 Troponin T 120 Minute 44.96 ng/L (0-15) H 12/08/24 17:25 Delta Troponin T 2.96 ABS# (0-10) 12/08/24 17:25 Total Protein 5.9 g/dL (6.6-8.7) L 12/09/24 02:57 Albumin 3.5 g/dL (3.5-5.2) 12/09/24 02:57 Globulin 2.4 g/dL (1.3-4.6) 12/09/24 02:57 Procalcitonin 0.05 ng/mL (0-0.5) 12/09/24 02:57 Urine Color Yellow (Yellow) 12/08/24 15:58 Urine Appearance Clear (CLEAR) 12/08/24 15:58 Urine pH 6.0 (5-7) 12/08/24 15:58 Ur Specific [place] 1.008 (1.005-1.030) 12/08/24 15:58 Urine Protein Negative (Negative) 12/08/24 15:58 Urine Glucose (UA) Negative (Normal) 12/08/24 15:58 Urine Ketones Negative (Negative) 12/08/24 15:58 Urine Blood Negative (Negative) 12/08/24 15:58 Urine Nitrate Negative (Negative) 12/08/24 15:58 Urine Bilirubin Negative (Negative) 12/08/24 15:58 Urine Urobilinogen 0.2 mg/dL (Negative) 12/08/24 15:58 Ur Leukocyte Esterase Negative (Negative) 12/08/24 15:58 Amorphous Sediment Not Reportable 12/08/24 15:58 Salicylates < 0.3 mg/dL (3-10) L 12/08/24 17:25 Urine Opiates Screen Negative ng/mL (Negative) 12/08/24 15:58 Ur Barbiturates Screen Negative ng/mL (Negative) 12/08/24 15:58 Ur Phencyclidine Scrn Negative ng/mL (Negative) 12/08/24 15:58 Ur Amphetamines Screen Negative ng/mL (Negative) 12/08/24 15:58 U Benzodiazepines Scrn Negative ng/mL (Negative) 12/08/24 15:58 Urine Cocaine Screen Negative ng/mL (Negative) 12/08/24 15:58 U Marijuana (THC) Screen Negative ng/mL (Negative) 12/08/24 15:58 Ethyl Alcohol < 10 mg/dL (0-10) 12/08/24 17:25 All radiology interpretation(s) finalized by discharge Discharge Plan Discharge Patient Disposition: Xfer Psychiatric Hosp Clinical Impression: Altered mental status, Acute psychosis, Encephalopathy Condition: Stable Coding Level of Care Code ED Inspector [employer] for Len Davenport
--- NOTE | 2024-12-08 14:56 | PC.PHAR ---
[facility] 12/08/24 2:56pm
--- NOTE | 2024-12-08 14:59 | PC.NURSE ---
1:1 SITTER PLACED IN PATIENT ROOM DUE TO CONSTANT NEED FOR REDIRECTION.
--- NOTE | 2024-12-08 15:12 | PC.PHAR ---
Addendum entered by Jenifer Jacinto 12/08/24 16:05: Topiramate 50mg was put on hold by Dr Todd on 11/15/24 Addendum entered by Jenifer Jacinto 12/08/24 15:36: Spoke with [id number] is allergic to Tylenol #3 and she has removed it from his medication bag, to be destroyed. Removed from med list as well. Original Note: Pt's chart shows Tylenol with codeine, which is the only medication on his allergy list. Verified and discharged with it on his continue medications list on 11/22/24.
[2024-12-08 15:41] LABS: Basophils # 0.1 10^3/uL (0.0-0.1); Eosinophils # 0.8 10^3/uL (0.0-0.8); Eosinophils % 7.4 %; Hematocrit 37.9 % (37-53); Lymphocytes # 1.9 10^3/uL (0.8-4.8); Lymphocytes % 16.7 %; Mean Corpuscular HGB Conc 30.1 g/dL (30-55); Mean Corpuscular Hemoglobin 28.8 pg (27-33); Mean Corpuscular Volume 95.7 fl (82-101); Mean Platelet Volume 9.4 fL (7.4-10.4); Monocytes # 0.7 10^3/uL (0.2-0.9); Neutrophils # 7.61 10^3/uL (1.8-7.7); Neutrophils % 68.5 %; Nucleated Red Blood Cells % 0 %; Platelet Count 342 10^3/cmm (157-399); Red Blood Count 3.96 10^6/uL (3.85-5.65); Red Cell Distribution Width 17.3 % (12.1-15.1)
[2024-12-08] MEDS: LORazepam 2 mg/mL INJ 1 mL 1 MG IM (15:45)
[2024-12-08 16:00] LABS: Troponin(5th) Baseline 42 ng/L (0-15)
--- NOTE | 2024-12-08 16:00 | CTR_ITS ---
PROCEDURE INFORMATION: Exam: CT Head Without Contrast Exam date and time: 12/08/2024 6:03 PM Age: 74 years old Clinical indication: Altered mental status/memory loss TECHNIQUE: Imaging protocol: Computed tomography of the head without contrast. Radiation optimization: All CT scans at this facility use at least one of these dose optimization techniques: automated exposure control; mA and/or kV adjustment per patient size (includes targeted exams where dose is matched to clinical indication); or iterative reconstruction. COMPARISON: CT head wo con* [id number] 11/15/2024 3:27 PM RADIATION DOSE METRICS: Total DLP (mGy-cm): 960.18 FINDINGS: Brain: No hemorrhage. No edema. Moderate diffuse cerebral atrophy and mild sequela of chronic small vessel ischemic disease. 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 No mass effect. Cerebral ventricles: No ventriculomegaly. Paranasal sinuses: Partially debris-filled left maxillary sinus with mucosal thickening. Mastoid air cells: Visualized mastoid air cells are well aerated. Bones: Unremarkable. No acute fracture. Soft tissues: Unremarkable. CT/CT head wo con* [id number] IMPRESSION: No acute intracranial abnormality.
--- NOTE | 2024-12-08 16:04 | PC.NURSE ---
CODE 10 CALLED ON PATIENT DUE TO AGGRESSION TOWARDS STAFF AND POTENTIAL TO HARM HIMSELF. PATIENT WAS ATTEMPTING TO HIT STAFF. PATIENT PLACED IN RESTRAINTS AT 1550.
[2024-12-08 16:09] LABS: Glucose Point of Care 145 mg/dL (70-110)
[2024-12-08] MEDS: ziprasidone 20 mg/mL SDV IM (16:11)
[2024-12-08] MEDS: water for injection-sterile 10 ML (16:11)
[2024-12-08 16:17] LABS: ABG PCO2 32.5 mmHg (35-45); ABG PH Result 7.41 (7.35-7.45); Alveolar-Arterial Oxygen Gradi 4.9 mmHg (5-10); Arterial Blood Gas Hematocrit 36.1 % (42-52); Base Excess ABG -3.4 mmol/L (-2.0-2.0); Blood Gas Allen Test Pos; Blood Gas Operator Identificat AMH; Blood Gas Sample Site Radial, right; Blood Gas Sample Type Arterial; Carboxyhemoglobin 2.5 %THgb (0.4-20.1); HCO3 ABG 20.5 mmol/L (22-26); HGB O2 Sat 91.5 % (95-100); Ionized Calcium Level - ABG 1.2 mmol/L (1.1-1.4); Methemoglobin 0.9 % (0.4-1.5); Oxygen Device ROOM AIR; Oxygen Saturation ABG 94.8; PO2 ABG 70.1 mmHg (80.0-100.0); PO2 FiO2 Ratio Arterial Blood 333; Potassium Level - ABG 3.6 mmol/L (3.5-5.0); Total Hemoglobin 11.8 g/dL (14-18)
[2024-12-08 16:26] LABS: Add Urine Microscopic? NO
[2024-12-08 16:26] LABS: Alanine Aminotransferase 13 U/L (0-41); Albumin Level 3.8 g/dL (3.5-5.2); Alkaline Phosphatase 104 U/L (40-130); Anion Gap 18.3 (5-19); Aspartate Amino Transferase 15 U/L (0-40); Blood Urea Nitrogen 11 mg/dL (8-23); Calcium 9.2 mg/dL (8.5-10.5); Carbon Dioxide 19 mmol/L (22-29); Chloride 105 mmol/L (98-107); Creatinine Clr Calc Pharmacy 68.3157; Globulin 2.8 g/dL (1.3-4.6); Glucose 112 mg/dL (65-115); Osmolality Calculated 286 mOsm/kg (285-295); Potassium 4.3 mmol/L (3.5-5.1); Sodium 138 mmol/L (136-145); Total Bilirubin 0.3 mg/dL (0.15-1.2); Total Protein 6.6 g/dL (6.6-8.7)
[2024-12-08 16:38] LABS: Bilirubin Urine Negative (Negative); Blood Urine Negative (Negative); Glucose Urine UA Negative (Normal); Ketones Urine Negative (Negative); Leukocyte Esterase Urine Negative (Negative); Nitrate Urine Negative (Negative); Protein Urine Negative (Negative); Specific Gravity, Urine 1.008 (1.005-1.030); Urine Appearance Clear (CLEAR); Urine Color Yellow (Yellow); Urobilinogen Urine 0.2 mg/dL (Negative)
--- NOTE | 2024-12-08 16:47 | ECG_ITS ---
[facility] Test Date: 2024-12-08 Pat Name: Jace Christie Department: Room: Gender: Male Behavioral Health Care Coordinator: : 1950 Requested By: Jamie Daniel Order Number: [id number] Reading MD: SERVANDO MACKENZIE Measurements Intervals [place] Rate: 100 P: 0 MT: 0 QRS: -20 QRSD: 113 T: 33 QT: 380 QTc: 491 Interpretive Statements ATRIAL FIBRILLATION WITH RAPID VENTRICULAR RESPONSE WITH ABERRANT CONDUCTION OR VENTRICULAR PREMATURE COMPLEXES MODERATE INTRAVENTRICULAR CONDUCTION DELAY [110+ ms QRS DURATION] ABNORMAL RHYTHM ECG Compared to ECG 12/08/2024 14:52:59 Ventricular premature complex(es) now present Aberrant conduction of supraventricular beat(s) now present Intraventricular conduction delay now present Left-axis deviation no longer present Myocardial infarct finding no longer present Electronically Signed On 12-09-2024 23:47:44 DYNAMO REPAIRER by SERVANDO MACKENZIE [email or web address] [id number]
[2024-12-08 16:52] LABS: Add Urine Culture? No
[2024-12-08 16:53] LABS: Charge for UA Resulting for Rev
[2024-12-08] MEDS: LORazepam 2 mg/mL INJ 1 mL 1 MG IVP (17:33)
[2024-12-08 17:55] LABS: Lactic Sepsis W/Reflex 1.1 mmol/L (0.5-2.2)
[2024-12-08 17:56] LABS: Troponin 5 2HR 44.96 ng/L (0-15); Troponin 5 2HR Delta 2.96 ABS# (0-10)
[2024-12-08 17:57] LABS: Ammonia 32 umol/L (16-60)
[2024-12-08 18:14] LABS: Creatine Phosphokinase 253 U/L (39-308)
[2024-12-08 18:15] LABS: Alcohol Level < 10 mg/dL (0-10); Salicylate < 0.3 mg/dL (3-10)
[2024-12-08 18:37] LABS: Amphetamines Screen Urine Negative (Negative); Barbiturates Screen Urine Negative (Negative); Benzodiazepines Screen Urine Negative (Negative); Cocaine Screen Urine Negative (Negative); Opiate Screen Urine Negative (Negative); PCP Screen Urine Negative (Negative); THC Screen Urine Negative (Negative)
--- NOTE | 2024-12-08 19:17 | PC.NURSE ---
pt was completely released from restraints at 190
--- NOTE | 2024-12-08 19:40 | PC.NURSE ---
Pts grandparents/guardians were denying to place the pt in perimeter. Dr. Durán had a conversation with the guardians who did eventually agree to send the pt to a ped psych facility.
--- NOTE | 2024-12-08 20:15 | PC.NURSE ---
patient taken out of restraints @1914.
--- NOTE | 2024-12-08 20:47 | ECG_ITS ---
[facility] Test Date: 2024-12-08 Pat Name: Jace Christie Department: Room: Gender: Male Tuck Pointer: : 1950 Requested By: Jamie Daniel Order Number: [id number] Reading MD: SERVANDO MACKENZIE Measurements Intervals [place] Rate: 75 P: 0 AK: 0 QRS: -34 QRSD: 92 T: 14 QT: 332 QTc: 372 Interpretive Statements ATRIAL FIBRILLATION LEFT AXIS DEVIATION [QRS AXIS < -30] NONSPECIFIC T-WAVE ABNORMALITY Compared to ECG 12/08/2024 16:27:49 Left-axis deviation now present T-wave abnormality now present Ventricular premature complex(es) no longer present Aberrant conduction of supraventricular beat(s) no longer present Intraventricular conduction delay no longer present Electronically Signed On 12-09-2024 23:46:42 CRUISE STAFF MEMBER by SERVANDO MACKENZIE [id number] [id number]
[2024-12-08] MEDS: sodium chloride 0.9% 1,000 ML 999 ML IV (21:51)
[2024-12-09] VITALS (22 sets, daily range): BP systolic 139–186; BP diastolic 76–104; PULSE 72–111; RESP 13–20; TEMP 36.5–37.1; O2SAT 92–99
[2024-12-09] MEDS: sodium chloride 0.9% 1,000 ML 75 ML IV ×3 (00:33→23:56)
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
[2024-12-09 03:09] LABS: Basophils # 0.1 10^3/uL (0.0-0.1); Basophils % 0.6 %; Eosinophils # 0.5 10^3/uL (0.0-0.8); Eosinophils % 3.5 %; Hematocrit 39.2 % (37-53); Lymphocytes # 1.7 10^3/uL (0.8-4.8); Mean Corpuscular HGB Conc 31.6 g/dL (30-55); Mean Corpuscular Hemoglobin 28.6 pg (27-33); Mean Corpuscular Volume 90.5 fl (82-101); Mean Platelet Volume 9.3 fL (7.4-10.4); Monocytes # 0.9 10^3/uL (0.2-0.9); Monocytes % 6.1 %; Neutrophils # 11.77 10^3/uL (1.8-7.7); Neutrophils % 78.4 %; Nucleated Red Blood Cells % 0 %; Platelet Count 348 10^3/cmm (157-399); Red Blood Count 4.33 10^6/uL (3.85-5.65); Red Cell Distribution Width 16.9 % (12.1-15.1); White Blood Count 15.01 10^3/uL (3.29-11.43)
[2024-12-09 03:31] LABS: Alanine Aminotransferase 13 U/L (0-41); Albumin Level 3.5 g/dL (3.5-5.2); Alkaline Phosphatase 98 U/L (40-130); Aspartate Amino Transferase 17 U/L (0-40); Blood Urea Nitrogen 10 mg/dL (8-23); Calcium 8.4 mg/dL (8.5-10.5); Carbon Dioxide 18 mmol/L (22-29); Chloride 105 mmol/L (98-107); Globulin 2.4 g/dL (1.3-4.6); Glucose 104 mg/dL (65-115); Magnesium 1.7 mg/dL (1.7-2.3); Osmolality Calculated 279 mOsm/kg (285-295); Phosphorus 2.2 mg/dL (2.5-4.5); Sodium 135 mmol/L (136-145); Total Bilirubin 0.5 mg/dL (0.15-1.2); Total Protein 5.9 g/dL (6.6-8.7)
[2024-12-09 03:34] LABS: Anion Gap 15.6 (5-19); Potassium 3.6 mmol/L (3.5-5.1)
[2024-12-09 03:39] LABS: Procalcitonin 0.05 ng/mL (0-0.5)
[2024-12-09] MEDS: insulin lispro 100 unit/1 mL SUBCUT (09:49)
[2024-12-09] MEDS: thiamine 500 MG in sodium chloride 0.9% (100 ml) 100 ML 210 MG IV ×2 (09:51→17:17)
[2024-12-09 11:24] LABS: Glucose Point of Care 102 mg/dL (70-110)
--- NOTE | 2024-12-09 14:00 | P.MISC_ITS ---
Miscellaneous Note Note: Patient admitted this morning by language therapist. See H&P for further details. Mentation still not yet at baseline. The etiology of his aggressive behavior and altered mental status remains unclear.
--- NOTE | 2024-12-09 14:00 | PM.MISC ---
Miscellaneous Note Note: Patient admitted this morning by cable swager. See H&P for further details. Mentation still not yet at baseline. The etiology of his aggressive behavior and altered mental status remains unclear.
[2024-12-09 16:46] LABS: Glucose Point of Care 92 mg/dL (70-110)
[2024-12-09] MEDS: acetaminophen 500 mg Tablet PO (19:35)
[2024-12-09] MEDS: LORazepam 2 mg/mL INJ 1 mL 1 MG IVP ×2 (19:36→23:56)
[2024-12-09 20:55] LABS: Glucose Point of Care 97 mg/dL (70-110)
[2024-12-09] MEDS: tamsulosin 0.4 mg Capsule 0.8 MG PO (21:16)
[2024-12-09] MEDS: metoprolol tartrate 25 mg Tablet PO (21:16)
[2024-12-10] VITALS (7 sets, daily range): BP systolic 124–171; BP diastolic 52–94; PULSE 79–86; RESP 15–19; TEMP 36.4–36.8; O2SAT 94–97
[2024-12-10] MEDS: lidocaine 2% viscous 15 ML, aluminum-mag hydrox-simethicon 30 ML, sucralfate oral liq 1 GM PO (01:59)
[2024-12-10 06:16] LABS: Glucose Point of Care 103 mg/dL (70-110)
--- NOTE | 2024-12-10 09:33 | PC.CHAP ---
Pastoral Care Encounter/Spiritual Assessment Type of Contact [x] Declined boat washer visit [] Patient/Family/Request visit [] Outpatient visit [] Follow-up visit [] Physician referral [] Code/Alert [] Routine visit [] Staff referral [] Actively dying [] Patient sleeping [] Family support [] [] Out of room [] Palliative care [] [] Receiving care in room [] Pre-surgical visit [] Trauma [] Long length of stay [] ICU visit [] Other: Relational/Emotional Strength [] Patient feels connected with others/family/visitors/staff [] Distress [] Loneliness/isolation [] Abandonment Spirituality of Patient [] Person of Yvonne [] Attends Yarsani of their Yvonne [] Believes in Prayer [] Reads Bible or Yarsani materials [] There are Spiritual issues to be addressed Equipment Detailer Interventions [] Prayer [] Active listening [] Non-anxious presence [] Spiritual/emotional support [] Crisis/trauma care [] Spiritual counseling [] Bereavement support [] Provided bereavement packet [] Provided Bible/devotional materials [] Provided toy/stuffed animal, coloring book to patient or family member [] Provided Communion [] Anointing/[place] [] Salvation [] Completed spiritual assessment [] Other: Impact on Illness or Injury [] Angry [] Fearful [] Anxious [] Often cries [] Exhaustion [] Unable to work [] Unable to attend spiritism [] Unable to walk/stand [] Unable to read [] Unable to drive [] Unable to eat/drink [] Unable to sleep [] Unable to be with family [] Patient intubated [] Other: Summary Time spent with patient
[2024-12-10] MEDS: HYDROcodone-acetaminophen 5-325 mg Tablet 1 TAB PO ×2 (10:42→18:00)
[2024-12-10] MEDS: sennosides-docusate Tablet 1 TAB PO (10:42)
[2024-12-10] MEDS: amiodarone 200 mg Tablet PO (10:43)
[2024-12-10] MEDS: apixaban 5 mg Tablet PO ×2 (10:43→17:46)
[2024-12-10] MEDS: thiamine 500 MG in sodium chloride 0.9% (100 ml) 100 ML 210 MG IV ×2 (10:43→17:47)
[2024-12-10] MEDS: gabapentin 100 mg Capsule PO ×2 (10:52→17:46)
[2024-12-10] MEDS: metoprolol tartrate 25 mg Tablet PO ×2 (10:53→21:41)
[2024-12-10] MEDS: ipratropium-albuterol 3 mL Neb INHALATION (11:33)
[2024-12-10 12:09] LABS: Glucose Point of Care 95 mg/dL (70-110)
--- NOTE | 2024-12-10 12:12 | PM.PN ---
Subjective Subjective: Patient is sleeping on exam. Sitter is bedside. He was reportedly more awake this morning but still confused. He had limited breakfast. He was reportedly up all night and has severe insomnia per report. Given this was the first time he seems to be sleeping, will allow him to sleep and monitor progress today. There is underlying concern that his mentation may be related to sleep deprivation in the setting of severe insomnia. He is prescribed gabapentin and baclofen both which can cause withdrawal with acute stopping. Will proceed with reinitiating both much lower doses to avoid any withdrawal. He was reportedly complaining of nausea and pain earlier this morning. Medications: Reviewed: Yes Vitals/I&O/Wt Last Vital Signs Temp 98.2 F 12/10/24 11:56 Pulse 84 12/10/24 11:56 Resp 17 12/10/24 11:56 BP 124/52 12/10/24 11:56 Pulse Ox 94 12/10/24 11:56 O2 Del Method Room Air 12/10/24 11:56 12/09/24 12/10/24 12/10/24 22:59 06:59 14:59 Intake Total 105 / 910 1000 / 1910 240 / 240 Balance 105 / 910 1000 / 1910 240 / 240 Weight last 48 hrs Weight 79.152 kg Weight 83.642 kg Weight 81.647 kg Physical Exam Narrative: General: Patient is sleeping Head: Normocephalic. Atraumatic. Neck: No JVD. Cardiovascular: RRR. No gallops. No murmurs. Lungs: Clear to auscultation, no use of accessory muscles, no crackles or wheezes. Skin: No jaundice. No rashes. Abdomen: Normal bowel sounds, abdomen soft and nontender. Extremities: No cyanosis or clubbing. Musculoskeletal: No swollen or erythematous joints. Neurological: Moves all 4 extremities. No myoclonus. Data 12/09/24 02:57 12/09/24 02:57 Micro: Microbiology 12/08/24 18:55 Blood Culture - Preliminary Blood NEGATIVE TO DATE 12/08/24 18:50 Blood Culture - Preliminary Blood NEGATIVE TO DATE A&P Assessment and plan (1) Altered mental status: Patient remains encephalopathic Will restart baclofen and gabapentin at reduced home doses to avoid withdrawal Exact etiology remains unclear as possible as related to sleep aspiration with hypoactive/hyperactive delirium superimposed He has been treated with Ativan and he remains encephalopathic Will rotate treatment to avoid benzodiazepines for today and use antipsychotics if needed Will allow him to sleep given history of severe insomnia and inability to sleep until this morning Further treatment workup pending clinical course (2) Wernicke encephalopathy: Collateral information provided from family suggest patient is not a daily drinker Continue thiamine dosed at Warnicke's dose (3) COPD (chronic obstructive pulmonary disease): Not in exacerbation Qualifiers: COPD type: emphysema Emphysema type: centrilobular Qualified Code(s): J43.2 - Centrilobular emphysema (4) Atrial fibrillation: Continue amiodarone Continue metoprolol Continue apixaban Qualifiers: Atrial fibrillation type: permanent Qualified Code(s): I48.21 - Permanent atrial fibrillation (5) Diabetes mellitus: Sliding-scale correction (6) Lung mass: Reportedly refuses work up Plan DVT ppx: Apixaban PDMP PDMP Reviewed: Not Reviewed Attestations Medical Necessity Statement*: Patient requires ongoing hospitalization as he is not safe to discharge due to his encephalopathy, titration of medications, serial labs, serial exams, and supportive care. Coding Level of Care Code Acute Code for [facility] Fwd Diagnoses Altered mental status R41.82 Wernicke encephalopathy E51.2 Centrilobular emphysema J43.2 COPD type: emphysema Emphysema type: centrilobular Permanent atrial fibrillation I48.21 Atrial fibrillation type: permanent Diabetes mellitus E11.9 Lung mass R91.8
[2024-12-10 12:57] LABS: Basophils # 0.1 10^3/uL (0.0-0.1); Basophils % 0.7 %; Eosinophils # 0.5 10^3/uL (0.0-0.8); Eosinophils % 5.9 %; Hematocrit 34.1 % (37-53); Lymphocytes # 1.6 10^3/uL (0.8-4.8); Lymphocytes % 17.6 %; Mean Corpuscular HGB Conc 31.4 g/dL (30-55); Mean Corpuscular Hemoglobin 28.8 pg (27-33); Mean Corpuscular Volume 91.9 fl (82-101); Mean Platelet Volume 9.5 fL (7.4-10.4); Monocytes # 0.6 10^3/uL (0.2-0.9); Monocytes % 6.4 %; Neutrophils # 6.38 10^3/uL (1.8-7.7); Neutrophils % 69.1 %; Nucleated Red Blood Cells % 0 %; Platelet Count 299 10^3/cmm (157-399); Red Blood Count 3.71 10^6/uL (3.85-5.65); Red Cell Distribution Width 16.8 % (12.1-15.1); White Blood Count 9.22 10^3/uL (3.29-11.43)
[2024-12-10 13:15] LABS: Alanine Aminotransferase 16 U/L (0-41); Albumin Level 3.3 g/dL (3.5-5.2); Alkaline Phosphatase 82 U/L (40-130); Anion Gap 12.6 (5-19); Aspartate Amino Transferase 21 U/L (0-40); Blood Urea Nitrogen 14 mg/dL (8-23); Carbon Dioxide 21 mmol/L (22-29); Chloride 112 mmol/L (98-107); Creatinine Clr Calc Pharmacy 82.4804; Globulin 1.8 g/dL (1.3-4.6); Glucose 87 mg/dL (65-115); Osmolality Calculated 294 mOsm/kg (285-295); Potassium 3.6 mmol/L (3.5-5.1); Sodium 142 mmol/L (136-145); Total Bilirubin 0.4 mg/dL (0.15-1.2); Total Protein 5.1 g/dL (6.6-8.7)
[2024-12-10] MEDS: haloperidol inj 5 mg/mL INJ 1 mL IVP (13:46)
--- NOTE | 2024-12-10 15:56 | PC.NURSE ---
Pt around 1530 became more alert and Ox 3. Conversation more clear and focused. Will continue to monitor.
[2024-12-10 17:03] LABS: Glucose Point of Care 99 mg/dL (70-110)
[2024-12-10 21:10] LABS: Glucose Point of Care 109 mg/dL (70-110)
[2024-12-10] MEDS: tamsulosin 0.4 mg Capsule 0.8 MG PO (21:41)
[2024-12-11] VITALS (11 sets, daily range): BP systolic 130–155; BP diastolic 65–86; PULSE 71–98; RESP 13–20; TEMP 36.3–36.8; O2SAT 94–98
[2024-12-11] MEDS: nicotine 14 mg Patch 1 PATCH TRANSDERMA ×2 (00:27→08:29)
[2024-12-11] MEDS: ipratropium-albuterol 3 mL Neb INHALATION ×2 (04:47→16:14)
[2024-12-11 06:35] LABS: Glucose Point of Care 105 mg/dL (70-110)
[2024-12-11] MEDS: apixaban 5 mg Tablet PO ×2 (08:29→17:23)
[2024-12-11] MEDS: amiodarone 200 mg Tablet PO (08:29)
[2024-12-11] MEDS: metoprolol tartrate 25 mg Tablet PO ×2 (08:29→20:18)
[2024-12-11] MEDS: gabapentin 100 mg Capsule PO ×2 (08:29→17:23)
[2024-12-11] MEDS: thiamine 500 MG in sodium chloride 0.9% (100 ml) 100 ML 210 MG IV ×2 (08:29→17:22)
[2024-12-11] MEDS: sennosides-docusate Tablet 1 TAB PO (08:30)
--- NOTE | 2024-12-11 11:29 | P.PN_ITS ---
Subjective 2 Subjective: Patient is much more awake and alert as compared to yesterday's exam. With staff assistance, he is able to ambulate to the chair. He does not remember the details of this hospitalization. Reports he is feeling okay at the moment. He has mental fog. Does endorse significant trouble sleeping at home. Reports he takes some medication for sleep that is teli-anb-cenjona but cannot recall the name. Does also report taking Benadryl for sleep. Medications: Reviewed: Yes Vitals/I&O/Wt Last Vital Signs Temp 97.9 F 12/11/24 11:28 Pulse 82 12/11/24 11:28 Resp 18 12/11/24 11:28 BP 130/68 12/11/24 11:28 Pulse Ox 95 12/11/24 11:28 O2 Del Method Room Air 12/11/24 11:28 12/10/24 12/11/24 12/11/24 22:59 06:59 14:59 Intake Total 705 / 1110 360 / 1470 105 / 105 Output Total 400 / 400 300 / 700 350 / 350 Balance 305 / 710 60 / 770 -245 / -245 Weight last 48 hrs Weight 79.197 kg Weight 79.152 kg Physical Exam 2 Narrative: General: Patient is awake. Conversational. Head: Normocephalic. Atraumatic. Neck: No JVD. Cardiovascular: RRR. No gallops. No murmurs. Lungs: Clear to auscultation, no use of accessory muscles, no crackles or wheezes. Skin: No jaundice. No rashes. Abdomen: Normal bowel sounds, abdomen soft and nontender. Extremities: No cyanosis or clubbing. Musculoskeletal: No swollen or erythematous joints. Neurological: Moves all 4 extremities. No myoclonus. Data 12/10/24 12:44 12/10/24 12:44 A&P Assessment and plan (1) Altered mental status: Patient's encephalopathy has significantly improved Continue current dosing of baclofen and gabapentin for now There is concerns of encephalopathy may be driven from his severe insomnia and sleep deprivation Will plan to keep awake today and add back some sleeping aids for the night Continue close monitoring of mental status (2) Wernicke encephalopathy: Continue thiamine supplementation (3) COPD (chronic obstructive pulmonary disease): Not in exacerbation Qualifiers: COPD type: emphysema Emphysema type: centrilobular Qualified Code(s): J43.2 - Centrilobular emphysema (4) Atrial fibrillation: Continue amiodarone Continue metoprolol Continue apixaban Qualifiers: Atrial fibrillation type: permanent Qualified Code(s): I48.21 - Permanent atrial fibrillation (5) Diabetes mellitus: Sliding-scale correction (6) Lung mass: Reportedly refuses work up Plan DVT ppx: Apixaban PDMP PDMP Reviewed: Not Reviewed Attestations 2 Medical Necessity Statement*: Patient requires ongoing hospitalization as he is not safe to discharge due to encephalopathy and further workup as needed, serial exams, titration of medications, and supportive care. Coding Level of Care Code Acute Code for g Fwd Diagnoses Altered mental status R41.82 Wernicke encephalopathy E51.2 Centrilobular emphysema J43.2 COPD type: emphysema Emphysema type: centrilobular Permanent atrial fibrillation I48.21 Atrial fibrillation type: permanent Diabetes mellitus E11.9 Lung mass R91.8
[2024-12-11 11:30] LABS: Glucose Point of Care 124 mg/dL (70-110)
[2024-12-11] MEDS: HYDROcodone-acetaminophen 5-325 mg Tablet 1 TAB PO (14:27)
[2024-12-11 16:27] LABS: Glucose Point of Care 126 mg/dL (70-110)
[2024-12-11] MEDS: tamsulosin 0.4 mg Capsule 0.8 MG PO (20:18)
[2024-12-11] MEDS: temazepam 15 mg Capsule PO (20:18)
[2024-12-11] MEDS: quetiapine 25 mg Tablet 50 MG PO (20:18)
[2024-12-11 20:54] LABS: Glucose Point of Care 169 mg/dL (70-110)
[2024-12-11] MEDS: insulin lispro 100 unit/1 mL SUBCUT (21:44)
[2024-12-12] VITALS: BP 95/60; PULSE 64; RESP 15; TEMP 36.6; O2SAT 92
[2024-12-12 04:00] VITALS: BP 142/59; PULSE 76; RESP 16; TEMP 36.3; O2SAT 97
[2024-12-12 06:22] LABS: Glucose Point of Care 102 mg/dL (70-110)
[2024-12-12 08:09] VITALS: BP 125/57; PULSE 74; RESP 18; TEMP 36.6; O2SAT 93
--- NOTE | 2024-12-12 08:30 | PM.DCS ---
Discharge Providers Date of Admission: 12/09/24 07:48 Date of Discharge: December 12, 2024 Attending Provider at Admission: Alexys Solorzano MD Attending Provider at Discharge: Shar Mejia MD Primary Care Provider: Chuy Baca DO Diagnoses at Discharge Discharge Diagnosis (1) Altered mental status: Status: Acute (2) Wernicke encephalopathy: Status: Acute (3) COPD (chronic obstructive pulmonary disease): Status: Acute Qualifiers: COPD type: emphysema Emphysema type: centrilobular Qualified Code(s): J43.2 - Centrilobular emphysema (4) Atrial fibrillation: Status: Acute Qualifiers: Atrial fibrillation type: permanent Qualified Code(s): I48.21 - Permanent atrial fibrillation (5) Diabetes mellitus: Status: Acute (6) Lung mass: Status: Acute Reason for Visit Reason for Visit: [facility] Hospital Course Hospital Course Jace Christie is a 74-year-old male with a past medical history significant for atrial fibrillation, diabetes mellitus, COPD, and multiple other comorbidities who presented emergency department with altered mental status. Of note, patient was just recently admitted after presenting the same. Patient underwent extensive workup last admission as well as this admission. Presentation felt most consistent with severe delirium secondary to severe sleep deprivation from severe untreated insomnia. He was prescribed provided supportive care. He required a sitter due to his altered mentation. His baclofen dose was decreased. Trazodone was discontinued. He was started on temazepam and Seroquel at bedtime. He slept well with this combination. He woke up with resolution of altered mentation. He was back to his normal mentation by day of discharge. He will be discharged on this combination of temazepam and Seroquel for sleep. He is to follow-up with his outpatient provider within 1 week. He likely benefit from further sleep study as outpatient. Physical Exam Narrative: General: Patient is awake and alert. Pleasant. No acute distress. Conversational. Head: Normocephalic. Atraumatic. EOM intact. Neck: No JVD. Cardiovascular: RRR. No gallops. No murmurs. Lungs: Clear to auscultation, no use of accessory muscles, no crackles or wheezes. Skin: No jaundice. No rashes. Abdomen: Normal bowel sounds, abdomen soft and nontender. Extremities: No cyanosis or clubbing. Musculoskeletal: No swollen or erythematous joints. Old toe amputations. Neurological: Moves all 4 extremities. No myoclonus. Discharge Data Studies Completed and Pending Completed Studies During Hospitalization Category Date Time Status CT head wo con* [id number] Stat Cat Scan 12/08/24 16:00 Completed XR chest 1V portable [id number] Stat Exams 12/08/24 14:47 Completed Pending at discharge Category Date Time Status Blood Culture Stat Lab 12/08/24 18:55 Results Osmolality Serum Routine Lab 12/10/24 12:44 Received Radiology Impressions Chest X-Ray 12/08/24 14:47 IMPRESSION: Cardiomegaly. Head CT 12/08/24 16:00 IMPRESSION: No acute intracranial abnormality. Laboratory Results WBC 9.22 10^3/uL (3.29-11.43) 12/10/24 12:44 RBC 3.71 10^6/uL (3.85-5.65) L 12/10/24 12:44 Hgb 10.70 g/dL (11.27-16.99) L 12/10/24 12:44 Hct 34.1 % (37-53) L 12/10/24 12:44 MCV 91.9 fl (82-101) 12/10/24 12:44 MCH 28.8 pg (27-33) 12/10/24 12:44 MCHC 31.4 g/dL (30-55) 12/10/24 12:44 RDW 16.8 % (12.1-15.1) H 12/10/24 12:44 Plt Count 299 10^3/cmm (157-399) 12/10/24 12:44 MPV 9.5 fL (7.4-10.4) 12/10/24 12:44 Neut % (Auto) 69.1 % 12/10/24 12:44 Lymph % (Auto) 17.6 % 12/10/24 12:44 [place] % (Auto) 6.4 % 12/10/24 12:44 Eos % (Auto) 5.9 % 12/10/24 12:44 Baso % (Auto) 0.7 % 12/10/24 12:44 Neut # (Auto) 6.38 10^3/uL (1.8-7.7) 12/10/24 12:44 Lymph # (Auto) 1.6 10^3/uL (0.8-4.8) 12/10/24 12:44 [place] # (Auto) 0.6 10^3/uL (0.2-0.9) 12/10/24 12:44 Eos # (Auto) 0.5 10^3/uL (0.0-0.8) 12/10/24 12:44 Baso # (Auto) 0.1 10^3/uL (0.0-0.1) 12/10/24 12:44 Nucleated RBC % (auto) 0 % 12/10/24 12:44 Nucleated RBCs # 0.0 /100WBC 12/10/24 12:44 Specimen Type Arterial 12/08/24 16:06 Sample Site Radial, right 12/08/24 16:06 ABG pH 7.41 (7.35-7.45) 12/08/24 16:06 ABG pCO2 32.5 mmHg (35-45) L 12/08/24 16:06 ABG pO2 70.1 mmHg (80.0-100.0) L 12/08/24 16:06 ABG PO2/FiO2 Ratio 333 12/08/24 16:06 ABG HCO3 20.5 mmol/L (22-26) L 12/08/24 16:06 ABG O2 Saturation 94.8 12/08/24 16:06 ABG Base Excess -3.4 mmol/L (-2.0-2.0) L 12/08/24 16:06 Cesar Test Pos 12/08/24 16:06 A-a O2 Gradient 4.9 mmHg (5-10) L 12/08/24 16:06 Hematocrit 36.1 % (42-52) L 12/08/24 16:06 Hgb O2 Saturation 91.5 % (95-100) L 12/08/24 16:06 Carboxyhemoglobin 2.5 %THgb (0.4-20.1) 12/08/24 16:06 Methemoglobin 0.9 % (0.4-1.5) 12/08/24 16:06 Total Hemoglobin 11.8 g/dL (14-18) L 12/08/24 16:06 Sodium 138.0 mmol/L (131-143) 12/08/24 16:06 Potassium 3.6 mmol/L (3.5-5.0) 12/08/24 16:06 Glucose 142.0 mg/dL (70-115) H 12/08/24 16:06 Ionized Calcium 1.2 mmol/L (1.1-1.4) 12/08/24 16:06 O2 Delivery Device Room air 12/08/24 16:06 FiO2 21.0 % 12/08/24 16:06 It Administrator ID Amh 12/08/24 16:06 Sodium 142 mmol/L (136-145) 12/10/24 12:44 Potassium 3.6 mmol/L (3.5-5.1) 12/10/24 12:44 Chloride 112 mmol/L (98-107) H 12/10/24 12:44 Carbon Dioxide 21 mmol/L (22-29) L 12/10/24 12:44 Anion Gap 12.6 (5-19) 12/10/24 12:44 BUN 14 mg/dL (8-23) 12/10/24 12:44 Creatinine 0.9 mg/dL (0.7-1.2) 12/10/24 12:44 GFR Calculation Not Reportable 12/10/24 12:44 Glucose 87 mg/dL (65-115) 12/10/24 12:44 POC Glucose 102 mg/dL (70-110) 12/12/24 06:16 Calculated Osmolality 294 mOsm/kg (285-295) 12/10/24 12:44 Lactic Acid 1.1 mmol/L (0.5-2.2) 12/08/24 17:25 Calcium 8.0 mg/dL (8.5-10.5) L 12/10/24 12:44 Phosphorus 2.2 mg/dL (2.5-4.5) L 12/09/24 02:57 Magnesium 1.7 mg/dL (1.7-2.3) 12/09/24 02:57 Total Bilirubin 0.4 mg/dL (0.15-1.2) 12/10/24 12:44 AST 21 U/L (0-40) 12/10/24 12:44 ALT 16 U/L (0-41) 12/10/24 12:44 Alkaline Phosphatase 82 U/L (40-130) 12/10/24 12:44 Ammonia 32 umol/L (16-60) 12/08/24 17:25 Creatine Kinase 253 U/L (39-308) 12/08/24 17:25 Troponin T Baseline 42 ng/L (0-15) H 12/08/24 15:16 Troponin T 120 Minute 44.96 ng/L (0-15) H 12/08/24 17:25 Delta Troponin T 2.96 ABS# (0-10) 12/08/24 17:25 Total Protein 5.1 g/dL (6.6-8.7) L 12/10/24 12:44 Albumin 3.3 g/dL (3.5-5.2) L 12/10/24 12:44 Globulin 1.8 g/dL (1.3-4.6) 12/10/24 12:44 Procalcitonin 0.05 ng/mL (0-0.5) 12/09/24 02:57 Urine Color Yellow (Yellow) 12/08/24 15:58 Urine Appearance Clear (CLEAR) 12/08/24 15:58 Urine pH 6.0 (5-7) 12/08/24 15:58 Ur Specific [place] 1.008 (1.005-1.030) 12/08/24 15:58 Urine Protein Negative (Negative) 12/08/24 15:58 Urine Glucose (UA) Negative (Normal) 12/08/24 15:58 Urine Ketones Negative (Negative) 12/08/24 15:58 Urine Blood Negative (Negative) 12/08/24 15:58 Urine Nitrate Negative (Negative) 12/08/24 15:58 Urine Bilirubin Negative (Negative) 12/08/24 15:58 Urine Urobilinogen 0.2 mg/dL (Negative) 12/08/24 15:58 Ur Leukocyte Esterase Negative (Negative) 12/08/24 15:58 Amorphous Sediment Not Reportable 12/08/24 15:58 Salicylates < 0.3 mg/dL (3-10) L 12/08/24 17:25 Urine Opiates Screen Negative ng/mL (Negative) 12/08/24 15:58 Ur Barbiturates Screen Negative ng/mL (Negative) 12/08/24 15:58 Ur Phencyclidine Scrn Negative ng/mL (Negative) 12/08/24 15:58 Ur Amphetamines Screen Negative ng/mL (Negative) 02/24/25 15:58 U Benzodiazepines Scrn Negative ng/mL (Negative) 12/08/24 15:58 Urine Cocaine Screen Negative ng/mL (Negative) 12/08/24 15:58 U Marijuana (THC) Screen Negative ng/mL (Negative) 12/08/24 15:58 Ethyl Alcohol < 10 mg/dL (0-10) 12/08/24 17:25 Vitals Last Vital Signs Temp 97.8 F 12/12/24 08:09 Pulse 74 12/12/24 08:09 Resp 18 12/12/24 08:09 BP 125/57 12/12/24 08:09 Pulse Ox 93 12/12/24 08:09 O2 Del Method Room Air 12/12/24 08:09 Discharge Plan Discharge Patient Disposition: Home Condition: Stable Prescriptions: New quetiapine 25 mg Tablet 50 mg PO BEDTIME 30 Days Qty: 30 0RF temazepam 15 mg Capsule 15 mg PO BEDTIME 30 Days Qty: 30 0RF Continued potassium chloride 20 mEq tablet extended release 20 meq PO BID Qty: 60 2RF furosemide 40 mg tablet 40 mg PO QAM (DME) Cam boot to right See Rx Instructions .Route .MEDSUPPLY Qty: 1 0RF Rx Instructions: As directed (DME) Diabetic Shoes with toe filler to right See Rx Instructions .Route .MEDSUPPLY Qty: 1 0RF Rx Instructions: As directed By CHAO&O Eliquis 5 mg tablet 5 mg PO BID Breztri Aerosphere 160-9-4.8 mcg/actuation HFA aerosol inhaler 2 inh inhalation BID Qty: 10.7 12RF acetaminophen 500 mg Tablet 1,000 mg PO Q6H PRN (Reason: Pain) 14 Days Qty: 20 0RF tamsulosin 0.4 mg Capsule 0.8 mg PO BEDTIME albuterol sulfate 90 mcg/actuation HFA aerosol inhaler 2 puff inhalation QID PRN (Reason: shortness of breath or wheezing) nitroglycerin 0.4 mg tablet, sublingual 0.4 mg sublingual Q5M PRN (Reason: chest pain) Qty: 25 0RF Rx Instructions: do not exceed 3 doses per episode gabapentin 100 mg Capsule 100 mg PO TID famotidine [Pepcid AC] 20 mg Tablet 20 mg PO BID metoprolol tartrate 25 mg Tablet 25 mg PO BID@0900,2100 30 Days Qty: 60 0RF thiamine HCl (vitamin B1) 250 mg tablet 250 mg PO DAILY 30 Days Qty: 30 0RF metformin 500 mg tablet 500 mg PO DAILY 30 Days Qty: 30 0RF (DME) glucometer testing kit See Rx Instructions .Route .MEDSUPPLY Qty: 1 0RF Rx Instructions: As directed (DME) lancets Misc See Rx Instructions .Route Qty: 200 0RF Rx Instructions: check bs tid (DME) strips See Rx Instructions .Route .MEDSUPPLY Qty: 100 0RF Rx Instructions: check bs tid amiodarone [Pacerone] 200 mg tablet 200 mg PO DAILY cadexomer iodine 0.9 % Gel See Rx Instructions .ROUTE .COMPLEX Rx Instructions: Apply sparingly to affected area(s) once daily. ipratropium-albuterol 0.5 mg-3 mg(2.5 mg base)/3 mL Solution For Nebulization 3 ml INHALATION QID PRN (Reason: Shortness Of Breath) Changed baclofen 10 mg tablet 5 mg PO BID PRN (Reason: spasm) Qty: 60 0RF Discontinued trazodone 100 mg Tablet 50 mg PO BEDTIME Discharge Orders: Discharge Order (Routine); Ordered 12/12/24 Ordered By: Shar Mejia Referrals: Chuy Baca DO [Primary Care Provider] - 12/16/24 2:30 pm Discharge Diet: Advance as tolerated and Usual diet Discharge Activity: Resume usual activity and Increase activity as tolerated Patient Instructions: Temazepam (By mouth) (Restoril, Strazepam), Quetiapine (By mouth) (Seroquel, Seroquel XR, Seroquel XR 14-Day..., Altered Mental Status (ED), Encephalopathy (DC), Opioid Safety Activity Restrictions/Additional Instructions: 1. Increase activity as tolerated. 2. Take medications as prescribed. 3. Follow-up with PCP within 1 week. Discharge Attestations Time Spent in Discharge Care*: greater than 30 min Quality Metrics Clinical Quality Measures [ No reported AMI, CVA or VTE this stay] Coding Level of Care Code Acute Code for Chg Fwd Diagnoses Altered mental status R41.82 Wernicke encephalopathy E51.2 Centrilobular emphysema J43.2 COPD type: emphysema Emphysema type: centrilobular Permanent atrial fibrillation I48.21 Atrial fibrillation type: permanent Diabetes mellitus E11.9 Lung mass R91.8
[2024-12-12] MEDS: metoprolol tartrate 25 mg Tablet PO (08:49)
[2024-12-12] MEDS: nicotine 14 mg Patch 1 PATCH TRANSDERMA (08:49)
[2024-12-12] MEDS: sennosides-docusate Tablet 1 TAB PO (08:50)
[2024-12-12] MEDS: apixaban 5 mg Tablet PO (08:50)
[2024-12-12] MEDS: gabapentin 100 mg Capsule PO (08:50)
[2024-12-12] MEDS: thiamine 500 MG in sodium chloride 0.9% (100 ml) 100 ML 210 MG IV (08:50)
[2024-12-12] MEDS: amiodarone 200 mg Tablet PO (08:50)
--- NOTE | 2024-12-12 10:00 | PC.SOCIAL ---
IMM Update pg 2 of IMM Updated and reviewed w/ patient. Copy provided and copy dated, initialed and placed in chart.
[2024-12-12 11:49] LABS: Glucose Point of Care 109 mg/dL (70-110)
[2024-12-12 12:00] VITALS: BP 138/67; PULSE 74; RESP 18; TEMP 36.5; O2SAT 96
--- NOTE | 2024-12-12 13:07 | PC.NURSE ---
Patient stated sister took wallet and clothing home with her when he was admitted.
--- NOTE | 2024-12-12 15:35 | PC.NURSE ---
Discharge Note Patient discharged to home via private vehicle accompanied by sister. Discharge instructions reviewed with patient and/or veterans contact representative. Mobile pharmacy medications and/or prescriptions provided. Belongings/home medications returned.
[2024-12-12 15:36] VITALS: BP 138/67; PULSE 74; RESP 18; TEMP 36.5; O2SAT 96
[2024-12-13 15:05] LABS: Osmolality Serum 288 mOsm/kg (278-305)
== END 2024-12-12 15:38 | disposition home or self-care (01) | DRG 885 ==
LOC: ER 21:52 → MEDSURG 12-09 07:48
PROVIDERS: Family Medicine; Admitting Provider Internal Medicine; Emergency Provider Emergency Medicine; PCP Emergency Medicine Emergency Medical Services; Visit Provider Internal Medicine
DX: F23 Brief psychotic disorder (principal); E51.2 Wernicke's encephalopathy; F05 Delirium due to known physiological condition; I48.21 Permanent atrial fibrillation; I50.32 Chronic diastolic (congestive) heart failure; J43.2 Centrilobular emphysema; E11.9 Type 2 diabetes mellitus without complications; R91.8 Other nonspecific abnormal finding of lung field; G47.00 Insomnia, unspecified; Z79.01 Long term (current) use of anticoagulants; Z79.51 Long term (current) use of inhaled steroids; Z79.84 Long term (current) use of oral hypoglycemic drugs; R45.1 Restlessness and agitation; Z87.440 Personal history of urinary (tract) infections; N40.1 Benign prostatic hyperplasia with lower urinary tract symptoms; R33.8 Other retention of urine; E86.0 Dehydration; I11.0 Hypertensive heart disease with heart failure; F17.210 Nicotine dependence, cigarettes, uncomplicated; Z89.411 Acquired absence of right great toe; Z86.16 Personal history of COVID-19
CPT/HCPCS: 36415; 36416; 36600; 70450; 71045; 80051; 80053; 80306; 80307; 81003; 82140; 82330; 82550; 82805; 82962; 83605; 83735; 83930; 84100; 84145; 84484; 85025; 87040; 93005; 94640; 96361; 96372; 96374; 99285; J1630; J1815; J2060; J3411; J3486; J7030

== ENCOUNTER → 2024-12-29 10:45 | Outpatient (BNVA) | payer OTHER, SELFPAY | PROVIDERS: PCP Emergency Medicine Emergency Medical Services; Visit Provider Podiatrist Foot & Ankle Surgery | DX: E11.621 Type 2 diabetes mellitus with foot ulcer (principal); L97.512 Non-pressure chronic ulcer of other part of right foot with fat layer exposed; Z89.431 Acquired absence of right foot | CPT/HCPCS: 99213 ==

== ENCOUNTER 2025-01-30 11:45 | Outpatient (CLI) | payer OTHER, SELFPAY ==
--- NOTE | 2025-01-30 12:15 | PETR_ITS ---
PROCEDURE INFORMATION: Exam: PET/CT Skull Base to Mid-thigh Exam date and time: 01/30/2025 12:43 PM Age: 74 years old Clinical indication: Abnormal findings; Left lower lobe nodule; Additional info: Potential cancer lll LABS AND CLINICAL REPORTS: Glucose: 106 mg/dl Treatment strategy for malignancy (PET staging): Initial Staging (PI) TECHNIQUE: Imaging protocol: Following at least four-hour fasting and following the injection of radiopharmaceutical, low dose CT images were obtained. Then, PET images were obtained. Attenuation corrected images were constructed using the CT scan. Fused images of PET and CT were reviewed. The standardized uptake values (SUV) reported below are maximum values within a region of interest, expressed in gm/ml. Exam includes orbital meatal line to mid-thigh. SUV normalization method: BodyWeight Radiopharmaceutical: 11.6 mCi F-18 FDG (Fluorodeoxyglucose), IV. Time of imaging post radiopharmaceutical administration: 48 minutes Injection site: RIGHT AC COMPARISON: 1. CT lung screening [id number] 01/05/2025 1:[address] [place] [id number] 11/17/2024 9:52 AM 3. PT PET skull to thigh SUBS [id number] 07/17/2023 12:24 PM FINDINGS: Brain: Visualized brain has normal physiologic uptake. Salivary glands: FDG avid 6 mm right parotid nodule on axial image 35 shows SUV max 19.8. Pharynx: Symmetric CT appearance of bilateral lingual tonsils with asymmetric FDG uptake showing SUV max 4.9 on the left and 3.4 on the right. Larynx: No abnormal uptake. Lungs, pleura and trachea: Advanced emphysematous changes throughout the lungs with stable non FDG avid right apical pleural-parenchymal scarring. Left lung postsurgical change. Left posterolateral subpleural reticulation with mild FDG uptake is likely benign scarring/fibrotic change. Intervally stable appearance of posterior left lung herniation at the 6th intercostal space. Decreased size solid left lower lobe nodule without FDG avidity measures 13 x 8 mm on axial image 106, previously 18 x 11 mm last month. Heart: Normal physiologic uptake. Coronary arteries: Moderate coronary artery calcification. Mediastinal space: No abnormal uptake. Liver: No abnormal uptake. Photopenic fluid density hepatic cyst and right hepatic subcentimeter hypodensity too small to characterize. Gallbladder and biliary ducts: No abnormal uptake. Pancreas: No abnormal uptake. Spleen: No abnormal uptake. Adrenal glands: No abnormal uptake. Kidneys and ureters: Normal physiologic uptake. Bilateral photopenic fluid density renal cysts. Mild right pelvocaliectasis similar to prior. Stomach and bowel: No abnormal uptake. Colonic diverticulosis without findings of diverticulitis. Reproductive: Prostatomegaly measures 5.2 cm in transverse dimension. No suspicious focal uptake. Vasculature: No abnormal uptake. Heavy systemic atherosclerotic calcification with stable mild fusiform ectasia of the infrarenal abdominal aorta. Stable pulmonary arterial dilatation. Lymph nodes: Low-level right hilar FDG uptake without discretely measurable lymph node shows SUV max 3.7. Skeleton: Stable chronic posttraumatic changes at the neck with chronic deformity of the hyoid and multiple metallic densities. Stable mild anterior wedge compression deformity of the inferior T12 vertebral body. Degenerative change along the spine and acromioclavicular joints. Mild periarticular uptake at both shoulders, right hip, and left sternoclavicular joint, likely inflammatory/degenerate. Soft tissues: FDG uptake along bilateral facial muscles without underlying CT abnormality is likely physiologic activation. Multiple small supraumbilical and umbilical fat containing hernias. METRICS: Mediastinal blood pool: SUV mean 2.2 Liver uptake: SUV mean 2.6 PET/PET skull to thigh INIT [id number] IMPRESSION: 1. Decreased size non FDG avid left lower lobe nodule is most likely benign. 2. Left posterolateral subpleural reticulation with mild FDG uptake is likely benign scarring/fibrotic change. 3. Intervally stable appearance of posterior left lung herniation at the 6th intercostal space. 4. Low-level right hilar FDG uptake without discretely measurable lymph node is nonspecific but favored reactive. 5. FDG avid subcentimeter right parotid nodule suggests primary neoplasm, possibly abnormal lymph node. 6. Mild asymmetric wwkl-wrrskvr-blib-right FDG uptake at bilateral lingual tonsils that shows symmetric CT appearance. Favor physiologic or inflammatory, difficult to entirely exclude neoplasm on the left. 7. Additional chronic and incidental findings as above, to include atherosclerosis, pulmonary arterial dilatation, and colonic diverticulosis.
== END 2025-01-30 11:46 | disposition home or self-care (01) ==
PROVIDERS: PCP Emergency Medicine Emergency Medical Services; Visit Provider Nurse Practitioner Family
DX: R91.1 Solitary pulmonary nodule (principal); J34.89 Other specified disorders of nose and nasal sinuses; R91.8 Other nonspecific abnormal finding of lung field; J98.4 Other disorders of lung; R59.0 Localized enlarged lymph nodes; R93.89 Abnormal findings on diagnostic imaging of other specified body structures; J43.9 Emphysema, unspecified; Z98.890 Other specified postprocedural states; I70.0 Atherosclerosis of aorta; K76.89 Other specified diseases of liver; N28.1 Cyst of kidney, acquired; K57.30 Diverticulosis of large intestine without perforation or abscess without bleeding; N40.0 Benign prostatic hyperplasia without lower urinary tract symptoms; I77.811 Abdominal aortic ectasia; I28.1 Aneurysm of pulmonary artery; R93.7 Abnormal findings on diagnostic imaging of other parts of musculoskeletal system; M47.9 Spondylosis, unspecified; M19.012 Primary osteoarthritis, left shoulder; M19.011 Primary osteoarthritis, right shoulder; K42.9 Umbilical hernia without obstruction or gangrene
CPT/HCPCS: 78815; A9552

== ENCOUNTER → 2025-03-19 15:21 | Outpatient (BNVA) | payer OTHER, SELFPAY | PROVIDERS: PCP Emergency Medicine Emergency Medical Services; Visit Provider Internal Medicine | DX: I50.9 Heart failure, unspecified (principal); I48.20 Chronic atrial fibrillation, unspecified; Z79.01 Long term (current) use of anticoagulants; J43.2 Centrilobular emphysema; E11.9 Type 2 diabetes mellitus without complications; F17.210 Nicotine dependence, cigarettes, uncomplicated | CPT/HCPCS: 99213 ==

== ENCOUNTER → 2025-03-31 10:58 | Outpatient (BNVA) | payer OTHER, SELFPAY | PROVIDERS: PCP Emergency Medicine Emergency Medical Services; Visit Provider Podiatrist Foot & Ankle Surgery | DX: E11.8 Type 2 diabetes mellitus with unspecified complications (principal); E11.621 Type 2 diabetes mellitus with foot ulcer; L97.512 Non-pressure chronic ulcer of other part of right foot with fat layer exposed; Z89.431 Acquired absence of right foot | CPT/HCPCS: 99213 ==

== ENCOUNTER → 2025-05-19 10:47 | Outpatient (BNVA) | payer OTHER, SELFPAY | PROVIDERS: PCP Nurse Practitioner; Visit Provider Podiatrist Foot & Ankle Surgery | DX: E11.621 Type 2 diabetes mellitus with foot ulcer (principal); L97.512 Non-pressure chronic ulcer of other part of right foot with fat layer exposed; E11.8 Type 2 diabetes mellitus with unspecified complications; Z89.431 Acquired absence of right foot; M24.574 Contracture, right foot | CPT/HCPCS: 11042; 99213 ==

== ENCOUNTER → 2025-06-02 10:01 | Outpatient (BNVA) | payer OTHER, SELFPAY | PROVIDERS: PCP Nurse Practitioner; Visit Provider Podiatrist Foot & Ankle Surgery | DX: E11.621 Type 2 diabetes mellitus with foot ulcer (principal); L97.512 Non-pressure chronic ulcer of other part of right foot with fat layer exposed; Z89.431 Acquired absence of right foot; M24.574 Contracture, right foot | CPT/HCPCS: 73630; 99213 ==

== ENCOUNTER → 2025-06-16 14:09 | Outpatient (BNVA) | payer OTHER, SELFPAY | PROVIDERS: PCP Nurse Practitioner; Visit Provider Podiatrist Foot & Ankle Surgery | DX: E11.621 Type 2 diabetes mellitus with foot ulcer (principal); L97.512 Non-pressure chronic ulcer of other part of right foot with fat layer exposed; Z89.431 Acquired absence of right foot; M24.574 Contracture, right foot; M65.971 Unspecified synovitis and tenosynovitis, right ankle and foot | CPT/HCPCS: 11042; 99213 ==

== ENCOUNTER 2025-07-14 12:25 | Outpatient (CLI) | payer OTHER, SELFPAY | END 2025-07-14 12:26 | disposition home or self-care (01) | LOC: SPT 12:25 | PROVIDERS: PCP Nurse Practitioner; Visit Provider Podiatrist Foot & Ankle Surgery | DX: Z46.89 Encounter for fitting and adjustment of other specified devices (principal); E11.621 Type 2 diabetes mellitus with foot ulcer; L97.512 Non-pressure chronic ulcer of other part of right foot with fat layer exposed; Z89.431 Acquired absence of right foot | CPT/HCPCS: L4361 ==

== ENCOUNTER 2025-07-14 14:27 | Inpatient (IN) | payer OTHER, SELFPAY ==
[2025-07-14] VITALS (10 sets, daily range): BP systolic 119–157; BP diastolic 47–71; PULSE 53–88; RESP 17–20; TEMP 36.6–37.9; O2SAT 92–96; BMI 23.1; BMI 24.4
--- OUTSIDE RECORDS SUMMARY | 2025-07-14 14:35 | XMS_ITS | Clinical Summary ---
Author Organization [facility] Facility Address [address] [place] [address] Care Team Providers Care Bath Mixer Name Role Phone Leatha Winslow Primary Care Provider [phone] Allergies Active Allergy Reactions Criticality Noted Date Comments Corylus 01/17/2023 Medications albuterol HFA (PROVENTIL HFA;VENTOLIN HFA) 108 (90 Base) MCG/ACT inhaler Inhale 2 puffs every 6 (six) hours if needed for wheezing Active albuterol (2.5 MG/3ML) 0.083% nebulizer solution Take 2.5 mg by nebulization every 6 (six) hours if needed for wheezing Active apixaban (ELIQUIS) 5 MG tablet Take 5 mg by mouth in the morning and 5 mg in the evening. Active Diclofenac Sodium 1 % gel Apply 2 g topically 4 times a day Active dilTIAZem XR (DILACOR XR) 180 MG 24 hr capsule Take 180 mg by mouth 1 (one) time each day Active Fluticasone-Ume clidin-Vilant 200-62.5-25 MCG/ACT aerosol powder Inhale 1 puff 1 (one) time each day Active furosemide (LASIX) 40 MG tablet Take 40 mg by mouth 1 (one) time each day Active gabapentin (NEURONTIN) 100 MG capsule Take 200 mg by mouth 1 (one) time each day Active potassium chloride (KLOR-CON M20) 20 MEQ CR tablet Take 20 mEq by mouth 1 (one) time each day Do not crush or chew. Active pantoprazole (PROTONIX) 40 MG EC tablet Take 40 mg by mouth 1 (one) time each day before breakfast Do not crush, chew, or split. Active tamsulosin (FLOMAX) 0.4 MG 24 hr capsule Take 0.4 mg by mouth 1 (one) time each day Active metoprolol succinate XL (TOPROL XL) 50 MG 24 hr tablet Take 50 mg by mouth in the morning and 50 mg in the evening. Active ipratropium-alb uterol (Combivent Respimat) 20-100 MCG/ACT inhaler Inhale 1 puff 4 (four) times a day Active dilTIAZem (CARDIZEM) 30 MG immediate release tablet Take 30 mg by mouth in the morning and 30 mg in the evening and 30 mg before bedtime. ONLY TAKES IF HR IS OVER 120. Active Active Problems No known active problems Family History Medical History Relation Comments Diabetes Father Relation Status Comments Father Mother Social History Tobacco Use Types Packs/Day Years Used Date Smoking Tobacco: Former Cigarettes Q uit: 2021 Smokeless Tobacco: Never Tobacco Cessation:Counseling Given: Not Answered Alcohol Use Standard Drinks/Week Comments Not Currently 0 (1 standard drink = 0.6 oz pur e alcohol) Sex and Gender Information Value Date Recorded Sex Assigned at Not on file Legal Sex Male 9:44 AM EST Gender Identity Not on file Sexual Orientation Not on file Last Filed Vital Signs Vital Sign Reading Time Taken Comments Blood Pressure 92/60 01/26/2023 11:16 AM CDT Pulse 68 01/26/2023 11:16 AM CDT Temperature - - Respiratory Rate - - Oxygen Saturation - - Inhaled Oxygen Concentration - - Weight 104 kg (228 lb 3.2 oz) 01/26/2023 11:16 A M CDT Height 188 cm (6' 2 ) 01/26/2023 11:16 AM CDT Body Mass Index 29.3 01/26/2023 11:16 AM CDT Plan of Treatment Health Maintenance Due Date Last Done Comments Pneumococcal Vaccine: 50+ Years (1 of 2 - PCV) 1969 Colorectal Cancer Screening: Annual FOBT 1999 Colorectal Cancer Screening: Colonoscopy 1999 Colorectal Cancer Screening: Sigmoidoscopy 1999 Diabetes: Ophthalmology Exam 01/26/2023 Diabetes: Pedal Pulse Checked 01/26/2023 Diabetes: Sensory Foot Exam 01/26/2023 Diabetes: Visual Foot Exam 01/26/2023 Diabetes: Hemoglobin A1C 04/23/2023 023, 12/05/2022 Influenza Vaccine (#1) 2025 Hepatitis B Vaccine Aged Out No longe r eligible based on patient's age to complete this topic Procedures Procedure Name Priority Date/Time Associated Diagnosis Comments HEMOGLOBIN A1C (EXTERNAL RESULT ENTRY) Routine 12/05/2022 3:48 PM COUNTY PROGRAM TECHNICIAN from Last 3 Months or Most Recently Relevant to Health Maintenance Results * Hemoglobin A1C (12/05/2022 3:48 PM COUNTY PROGRAM TECHNICIAN) Hemoglobin A1C 7.4 Blood specimen (specimen) Venous blood / Unknown 12/05/2022 3:48 PM COUNTY PROGRAM TECHNICIAN us Historical Provider LAB BLOOD ORDERABLES Shannon l Result from Last 3 Months or Most Recently Relevant to Health Maintenance Insurance Regions 1,2,3 (VAC[employer]) Care Teams Bath Mixer Relationship Specialty Start Date End Date Leatha Winslow [address] [place] [address] PCP - General 01/26/23
--- OUTSIDE RECORDS SUMMARY | 2025-07-14 14:35 | XMS_ITS | Encounter Summary ---
Author Organization [facility] Address [address] [place] [address] Phone Care Team Providers Care Stationary Boiler Fireman Name Role Phone Leatha Winslow Primary Care Provider Encounter Details Date Type Department Care Team (Late st Contact Info) Description 12/19/2022 Orders Only [facility] [address] [place] [address] Acute kidney failure, not otherwise specified (HCC) Social History Tobacco Use Types Packs/Day Years Used Date Smoking Tobacco: Never Assessed Sex and Gender Information Value Date Recorded Sex Assigned at Not on file Legal Sex Male 9:44 AM EST Gender Identity Not on file Sexual Orientation Not on file documented as of this encounter Plan of Treatment Not on file documented as of this encounter Visit Diagnoses Diagnosis Acute kidney failure, not otherwise specified (HCC) documented in this encounter Care Teams Stationary Boiler Fireman Relationship Specialty Start Date End Date [facility] [address] [place] [id number] PCP - General 01/26/23 documented as of this encounter
--- OUTSIDE RECORDS SUMMARY | 2025-07-14 14:35 | XMS_ITS | Clinical Summary ---
Author Organization [facility] Address [address] [place] [address] Phone Care Team Providers Care Perinatal Tech Name Role Phone Unavailable Primary Care Provider [...] Take 0.4 mg by mouth daily. Active furosemide (LASIX) 40 mg tablet Take 40 mg by mouth daily. Active overnight pulse oximetry Overnight pulse oximetry: One time overnight pulse oximetry test on room air. 1 Each 02/06/20 23 Active baclofen (LIORESAL) 10 mg tablet Take 10 mg by mouth 2 times daily. Active gabapentin (NEURONTIN) 100 mg capsule Take 100 mg by mouth 3 times daily. Active ipratropium-albu teroL (DUONEB) 0.5 mg-3 mg(2.5 mg base)/3 mL Solution for Nebulization Take 3 mL by inhalation every 6 hours as needed for Shortness of Breath. Active Breztri Aerosphere 160 mcg-9mcg-4.8mcg/ actuation HFA aerosol inhalerIndicatio ns:Chronic obstructive pulmonary disease, unspecified COPD type (CMS/HCC) Take 2 Puffs by inhalation 2 times daily. 10.7 Gram 11 09/02/20 24 Active blood sugar diagnostic (Accu-Chek Guide test strips) Strip 1 Strip by See Admin Instructions route see administration instructions. 07/12/20 21 Active dilTIAZem (CARDIZEM) 30 mg tablet Take 30 mg by mouth 1 time daily as needed. ONLY TAKE IF HR IS OVER 120 Active dilTIAZem (DILACOR XR) 180 mg Extended Release capsule Take 180 mg by mouth daily. Active famotidine (PEPCID) 20 mg tablet Take 20 mg by mouth 2 times daily. Active albuterol sulfate HFA 90 mcg/actuation aerosol inhaler Take 2 Puffs by inhalation every 6 hours as needed for Shortness of Breath or Wheezing. 25.5 Gram 3 01/14/20 25 Active Active Problems Problem Noted Date Diagnosed Date Encounter for Ash catheter removal 12/01/2024 Chronic obstructive pulmonary disease 03/26/2023 Cigarette nicotine dependence in remission 03/26 Encounters Date Type Department Care Team Description 05/20/2025 External Device Data [facility] ABSTRACTION Provider, Abstract 05/19/2025 External Device Data [facility] ABSTRACTION Provider, Abstract 05/19/2025 External Device Data [facility] ABSTRACTION Provider, Abstract 04/28/2025 Abstract [facility] [address] [place] [address] Tayler Escamilla NP from Last 3 Months Social History Tobacco [...] who hurts you emotionally and/or physically? No 12/01/2024 Sex and Gender Information Value Date Recorded Sex Assigned at Not on file Legal Sex Male 7:21 AM [employer] Gender Identity Not on file Sexual Orientation Not on file Last Filed Vital Signs Vital Sign Reading Time Taken Comments Blood Pressure 128/77 01/13/2025 11:04 AM CDT Pulse 60 01/13/2025 11:04 AM CDT Temperature 36.8 C (98.2 F) 01/13/2025 11:04 AM CDT Respiratory Rate 18 01/13/2025 11:04 AM CDT Oxygen Saturation 97% 01/13/2025 11:04 AM CDT Inhaled Oxygen Concentration - - Weight 82.3 kg (181 lb 6.4 oz) 01/13/2025 11:04 AM CDT Height 188 cm (6' 2 ) 01/13/2025 11:04 AM CDT Body Mass Index 23.29 01/13/2025 11:04 AM CDT Plan of Treatment Upcoming Encounters Date Type Department Care Team (Late st Contact Info) Description 07/21/2025 3:00 PM CDT [facility]med [facility] [place] [address] [place] [id number] Tayler Escamilla NP [address] [place] [address] Health Maintenance Due Date Last Done Comments FIT-DNA Q 3 years 1995 FIT/FOBT Q 1 year 1995 Flex Sig/CT Colonography Q 5 years 1995 Abdominal Aortic Aneurysm (A AA) Screening 2015 INFLUENZA VACCINE (#1) 2025 , 09/03/2023, 10/23/2019, Additional history exists COLORECTAL SCREENING 05/18/2025 05/18/2015 Colorectal Cancer Screening 05/18/2025 RSV VACCINE (60+ or ) (1 - 1-dose 75+ series) 2025 COVID-19 Vaccine ( - 2024-2 6 season) 2025 12/07/2021, 06/14/2021, 05/18/2021 DTAP/TDAP/TD VACCINES (3 - T d or Tdap) 09/03/2033 09/03/2023, 07/07/2014 ZOSTER VACCINE Completed 05/29/2019, 03/26/2019 PNEUMOCOCCAL VACCINE 50+ YEARS Completed 0 10/21/2019, 12/23/2015, 04/25/2014 Insurance [facility] * Guarantor: [facility] (C) Account Type Relation to Patient Date of Phone Billing Address Corporate Other DEFAULT ADDRESS [address] [place] * Guarantor: [facility] Sarah (C) Account Type Relation to Patient Date of Phone Billing Address Corporate Other DEFAULT ADDRESS [address] [place]
--- NOTE | 2025-07-14 15:36 | XRR_ITS ---
PROCEDURE INFORMATION: Exam: XR Right Foot Exam date and time: 07/14/2025 3:46 PM Age: 75 years old Clinical indication: Condition or disease; Other: Wound on foot TECHNIQUE: Imaging protocol: Radiologic exam of the right foot. Views: 3 or more views. COMPARISON: CR XR foot RT min 3V* [id number] 06/02/2025 10:09 AM FINDINGS: Bones/joints: Status post transmetatarsal amputation of the foot. There is presence of a dressing overlying the medial aspect of the stem with presence of gas beneath is compatible with an ulcer. There is no cortical erosion noted. Patient is status post ORIF for distal tibia and fibula fractures. Hardware is intact. Soft tissues: Normal. XR/XR foot RT min 3V* [id number] IMPRESSION: Status post transmetatarsal amputation with presence of wound on the medial aspect of the stump. No cortical erosion is noted.
--- NOTE | 2025-07-14 15:53 | W.ED.EXTPRO ---
HPI - Extremity Problem General: Chief complaint: Extremity Injury, Lower Stated complaint: open wound on R foot History of Present Illness: 75-year-old male with a history of atrial fibrillation, chronic anticoagulation on Eliquis, diabetes, COPD, chronic lower extremity ulcer and partial amputation of the right foot and diabetic peripheral neuropathy who presents to the emergency room from podiatry clinic with worsening wound. I spoke with Dr. Melendez and he says there is bone exposed in the wound and he is going to take the patient to the OR tomorrow. Needs medical clearance and admission to hospitalist service. Patient is not having any pain currently. No fevers. No altered mental status. Related Data Home Medications ?Medication ?Instructions ?Recorded ?Confirmed tamsulosin 0.4 mg capsule 0.8 mg PO BEDTIME 06/21/22 07/14/25 apixaban 5 mg tablet (Eliquis) 5 mg PO BID 03/20/23 07/14/25 albuterol sulfate 90 mcg/actuation 2 puff inhalation QID PRN 05/14/23 07/14/25 aerosol inhaler shortness of breath or wheezing furosemide 40 mg tablet 40 mg PO QAM 06/08/23 07/14/25 famotidine 20 mg tablet (Pepcid AC) 20 mg PO BID 11/16/24 07/14/25 gabapentin 100 mg capsule 100 mg PO TID 11/16/24 07/14/25 amiodarone 200 mg tablet (Pacerone) 200 mg PO DAILY 12/08/24 07/14/25 ipratropium 0.5 mg-albuterol 3 mg 3 ml inhalation QID PRN Shortness 12/08/24 07/14/25 (2.5 mg base)/3 mL nebulization Of Breath soln Previous Rx's ?Medication ?Instructions ?Recorded acetaminophen 500 mg tablet 1,000 mg (2 x 500 mg) PO Q6H PRN 10/22/22 Pain 14 days #20 tabs Diabetic Shoes with toe filler to #1 ea 11/10/22 right potassium chloride 20 mEq 20 meq PO BID #60 tabs 05/02/23 tablet,extended release nitroglycerin 0.4 mg sublingual 0.4 mg sublingual Q5M PRN chest 05/15/23 tablet pain #25 tabs budesonide 160 mcg-glycopyr 9 2 inh inhalation BID #10.7 grams 02/26/24 mcg-formot 4.8 mcg/actuation HFA inhaler (Breztri Aerosphere) glucometer testing kit #1 ea 11/22/24 lancets #200 ea 11/22/24 strips #100 ea 11/22/24 baclofen 10 mg tablet 5 mg (1/2 x 10 mg) PO BID PRN 12/12/24 spasm #60 tabs Diabetic shoes #1 ea 05/20/25 diclofenac sodium 1 % topical gel 2 g topical QID 30 days #150 grams 06/16/25 (Voltaren Arthritis Pain) Cam boot to right #1 ea 07/14/25 Allergies Allergy/AdvReac Type Severity Reaction Status Date / Time codeine (From AdvReac Mild ADR-Dizzine Verified 07/14/25 11:03 Tylenol-Codeine #3) ss Review of Systems Narrative: Constitutional symptoms: Negative except as documented in HPI. Skin symptoms: Negative except as documented in HPI. Eye symptoms: Negative except as documented in HPI. ENMT symptoms: Negative except as documented in HPI. Respiratory symptoms: Negative except as documented in HPI. Cardiovascular symptoms: Negative except as documented in HPI. Gastrointestinal symptoms: Negative except as documented in HPI. Genitourinary symptoms: Negative except as documented in HPI. Musculoskeletal symptoms: Negative except as documented in HPI. Neurologic symptoms: Negative except as documented in HPI. Psychiatric symptoms: Negative except as documented in HPI. Endocrine symptoms: Negative except as documented in HPI. [facility] PFSH: Medical History (Updated 07/14/25 @ 16:50 by Avani Segura MD) Encephalopathy Acute psychosis Wernicke encephalopathy Atrial fibrillation Diabetes mellitus Black tarry stools Melena Chronic anticoagulation Acute blood loss anemia Dehydration Shock Hypotension Atrial fibrillation with rapid ventricular response COPD (chronic obstructive pulmonary disease) Acute upper GI bleed Hyperglycemia COVID Hypoxemia COPD exacerbation Non-pressure 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 Dehiscence of amputation stump of right lower extremity Diabetic peripheral neuropathy associated with type 2 diabetes mellitus Surgical History 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 S/P foot surgery, right History of amputation of great toe Family History Denies family history of Cancer Social History Smoking and tobacco/nicotine status: current every day tobacco/nicotine user cigarettes Packs smoked per day: 1 Years cigarettes smoked: 53 [ Other cigarette details: Started at 1970] Physical Exam Narrative: EXAM NARRATIVE: General: Alert, no acute distress. Skin: Warm, dry. Head: Normocephalic, atraumatic. Neck: Supple, trachea midline. Eye: Extraocular movements are intact. Ears, nose, mouth and throat: mucosa moist. Cardiovascular: Regular, Normal peripheral perfusion. Respiratory: Lungs are clear to auscultation, respirations are non-labored, breath sounds are equal, Symmetrical chest wall expansion. Gastrointestinal: Soft, Nontender, Non distended Musculoskeletal: Obvious partial amputation of the right foot. However there is a new dressing on the foot so I am not going to take this off at this point as it was just examined in clinic. Neurological: Alert and oriented, No focal neurological deficit observed. Psychiatric: Cooperative, appropriate mood & affect. Course Vital Signs: Vital signs: Vital Signs Temperature 98.4 F 07/14/25 14:51 Pulse Rate 60 07/14/25 14:51 Respiratory Rate 18 07/14/25 14:51 Blood Pressure 119/54 07/14/25 14:51 Pulse Oximetry 94 07/14/25 14:51 Oxygen Delivery Me thod Room Air 07/14/25 14:51 MDM - Extremity (Nontraumatic) Medical Decision Making Medical decision making: Differential diagnosis including but not limited to and based on the above HPI, review of systems and physical exam: Basic medical clearance. Also inflammatory markers. Starting antibiotics orders placed to evaluate differential diagnosis based on the above differential, HPI and physical exam X-ray of the foot: Transmetatarsal amputation. No obvious erosion is noted. This was reviewed and interpreted by myself the emergency room physician. I also reviewed the radiology report. Lab Review: Laboratory results were reviewed and interpreted by myself the emergency room physician. No leukocytosis. No anemia. Mild acute renal insufficiency with a BUN and creatinine of 18 and 1.5. This is a little above his baseline. CRP is quite elevated at 128 and ESR is elevated at 34 I reviewed the patient's medical record. 75-year-old male with a history of atrial fibrillation, chronic anticoagulation on Eliquis, diabetes, COPD, chronic lower extremity ulcer and partial amputation of the right foot and diabetic peripheral neuropathy Reexamination: Patient remained stable. No increased work of breathing. No altered mental status. No focal motor deficits. Consultation: I spoke with Dr. Melendez who is clinical applications manager for podiatry and who is consulting on the patient and is planning to go to the OR tomorrow. Consultation: I spoke Dr. Davila who is on-call for the hospitalist service who agrees to admission. Assessment and plan: Diabetic foot infection -I discussed the patient with the hospitalist on-call who is admitting the patient. - Discussed findings and plan with patient. Answered any questions. - All laboratory values were reviewed and interpreted personally by myself, the ER physician - All imaging was reviewed and interpreted personally by myself, the ER physician. - Evaluation and treatment of this problem were appropriate in the emergency setting Lab Data 07/14/25 16:08 07/14/25 16:08 Radiology Impressions Foot X-Ray 07/14/25 15:36 IMPRESSION: Status post transmetatarsal amputation with presence of wound on the medial aspect of the stump. No cortical erosion is noted. Laboratory Results WBC 11.07 10^3/uL (3.29-11.43) 07/14/25 16:08 RBC 3.80 10^6/uL (3.85-5.65) L 07/14/25 16:08 Hgb 11.00 g/dL (11.27-16.99) L 07/14/25 16:08 Hct 34.7 % (37-53) L 07/14/25 16:08 MCV 91.3 fl (82-101) 07/14/25 16:08 MCH 28.9 pg (27-33) 07/14/25 16:08 MCHC 31.7 g/dL (30-55) 07/14/25 16:08 RDW 13.5 % (12.1-15.1) 07/14/25 16:08 Plt Count 309 10^3/cmm (157-399) 07/14/25 16:08 MPV 9.1 fL (7.4-10.4) 07/14/25 16:08 Neut % (Auto) 76.2 % 07/14/25 16:08 Lymph % (Auto) 13.2 % 07/14/25 16:08 [place] % (Auto) 6.8 % 07/14/25 16:08 Eos % (Auto) 3.0 % 07/14/25 16:08 Baso % (Auto) 0.5 % 07/14/25 16:08 Neut # (Auto) 8.44 10^3/uL (1.8-7.7) H 07/14/25 16:08 Lymph # (Auto) 1.5 10^3/uL (0.8-4.8) 07/14/25 16:08 [place] # (Auto) 0.8 10^3/uL (0.2-0.9) 07/14/25 16:08 Eos # (Auto) 0.3 10^3/uL (0.0-0.8) 07/14/25 16:08 Baso # (Auto) 0.1 10^3/uL (0.0-0.1) 07/14/25 16:08 Nucleated RBC % (auto) 0 % 07/14/25 16:08 Nucleated RBCs # 0.0 /100WBC 07/14/25 16:08 ESR 34 mm/hr (0-10) H 07/14/25 16:08 Sodium 140 mmol/L (136-145) 07/14/25 16:08 Potassium 3.4 mmol/L (3.5-5.1) L 07/14/25 16:08 Chloride 105 mmol/L (98-107) 07/14/25 16:08 Carbon Dioxide 24 mmol/L (22-29) 07/14/25 16:08 Anion Gap 14.4 (5-19) 07/14/25 16:08 BUN 18 mg/dL (8-23) 07/14/25 16:08 Creatinine 1.5 mg/dL (0.7-1.2) H 07/14/25 16:08 GFR Calculation Not Reportable 07/14/25 16:08 Glucose 101 mg/dL (65-115) 07/14/25 16:08 Calculated Osmolality 292 mOsm/kg (285-295) 07/14/25 16:08 Lactic Acid 1.0 mmol/L (0.5-2.2) 07/14/25 16:08 Calcium 8.9 mg/dL (8.5-10.5) 07/14/25 16:08 Total Bilirubin 0.2 mg/dL (0.15-1.2) 07/14/25 16:08 AST 7 U/L (0-40) 07/14/25 16:08 ALT 6 U/L (0-41) 07/14/25 16:08 Alkaline Phosphatase 94 U/L (40-130) 07/14/25 16:08 C-Reactive Protein 128.6 mg/L (0.0-4.9) H 07/14/25 16:08 Total Protein 6.5 g/dL (6.6-8.7) L 07/14/25 16:08 Albumin 3.5 g/dL (3.5-5.2) 07/14/25 16:08 Globulin 3.0 g/dL (1.3-4.6) 07/14/25 16:08 All radiology interpretation(s) finalized by discharge Discharge Plan Discharge Patient Disposition: Admitted As Inpatient Clinical Impression: Diabetic foot infection, Dehydration Condition: Stable Coding Level of Care Code ED [id number] Administrator for Len Davenport
--- NOTE | 2025-07-14 16:02 | PM.CONSULT ---
Providers/Reason For Consult Consulting Physician/Specialty*: Zachary Melendez D.P.M./podiatry Reason for Consult*: Osteomyelitis right foot Primary Care Provider: MILADIS Leblanc History of Present Illness History of Present Illness Jace Christie is a 75 year old male who was seen in podiatry clinic today for a chronic wound which demonstrated worsening of symptoms as bone protruding from the wound with cellulitis and was directed to the emergency department. Review of Systems General: Reports: 10 or more systems reviewed and unremarkable except in HPI and below Const: Denies: fever(s) or chills Eyes: Denies: change in vision Card: Denies: chest pain or palpitations Resp: Denies: dyspnea or productive cough GI: Denies: abdominal pain, nausea or vomiting : Denies: flank pain Musc: Reports: extremity swelling, joint stiffness and deformity Skin/Breast: Reports: erythema, sores, changes in skin color, dry skin, nail changes and change in hair Neuro: Reports: numbness in extremities, sensory changes and difficulty walking Psych: Denies: suicidal ideation Endo: Denies: change in body appearance [place]/Lymph: Denies: tender lymph nodes Medications/Allergies Home Medications ?Medication ?Instructions ?Recorded ?Confirmed ?Last Taken ?Type tamsulosin 0.4 mg capsule 0.8 mg PO BEDTIME 06/21/22 07/14/25 12/07/24 History acetaminophen 500 mg tablet 1,000 mg (2 x 500 mg) PO Q6H PRN 10/22/22 07/14/25 Unknown Rx Pain 14 days #20 tabs Diabetic Shoes with toe filler to #1 ea 11/10/22 07/14/25 Unknown Rx right apixaban 5 mg tablet (Eliquis) 5 mg PO BID 03/20/23 07/14/25 12/08/24 History potassium chloride 20 mEq 20 meq PO BID #60 tabs 05/02/23 07/14/25 12/08/24 Rx tablet,extended release albuterol sulfate 90 mcg/actuation 2 puff inhalation QID PRN 05/14/23 07/14/25 Unknown History aerosol inhaler shortness of breath or wheezing nitroglycerin 0.4 mg sublingual 0.4 mg sublingual Q5M PRN chest 05/15/23 07/14/25 Unknown Rx tablet pain #25 tabs furosemide 40 mg tablet 40 mg PO QAM 06/08/23 07/14/25 12/08/24 History budesonide 160 mcg-glycopyr 9 2 inh inhalation BID #10.7 grams 02/26/24 07/14/25 12/08/24 Rx mcg-formot 4.8 mcg/actuation HFA inhaler (Breztri Aerosphere) famotidine 20 mg tablet (Pepcid AC) 20 mg PO BID 11/16/24 07/14/25 12/08/24 History gabapentin 100 mg capsule 100 mg PO TID 11/16/24 07/14/25 12/08/24 History glucometer testing kit #1 ea 11/22/24 07/14/25 Unknown Rx lancets #200 ea 11/22/24 07/14/25 Unknown Rx strips #100 ea 11/22/24 07/14/25 Unknown Rx amiodarone 200 mg tablet (Pacerone) 200 mg PO DAILY 12/08/24 07/14/25 12/08/24 History ipratropium 0.5 mg-albuterol 3 mg 3 ml inhalation QID PRN Shortness 12/08/24 07/14/25 Unknown History (2.5 mg base)/3 mL nebulization Of Breath soln baclofen 10 mg tablet 5 mg (1/2 x 10 mg) PO BID PRN 12/12/24 07/14/25 Unknown Rx spasm #60 tabs Diabetic shoes #1 ea 05/20/25 07/14/25 Unknown Rx diclofenac sodium 1 % topical gel 2 g topical QID 30 days #150 grams 06/16/25 07/14/25 Unknown Rx (Voltaren Arthritis Pain) Cam boot to right #1 ea 07/14/25 07/14/25 Unknown Rx Allergies Allergy/AdvReac Type Severity Reaction Status Date / Time codeine (From AdvReac Mild ADR-Dizzine Verified 07/14/25 11:03 Tylenol-Codeine #3) ss PFSH Acute PFSH: Medical History (Updated 07/15/25 @ 06:29 by Zachary Melendez DPM) Encephalopathy Acute psychosis Wernicke encephalopathy Atrial fibrillation Diabetes mellitus Black tarry stools Melena Chronic anticoagulation Acute blood loss anemia Dehydration Shock Hypotension Atrial fibrillation with rapid ventricular response COPD (chronic obstructive pulmonary disease) Acute upper GI bleed Hyperglycemia COVID Hypoxemia COPD exacerbation Non-pressure 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 Dehiscence of amputation stump of right lower extremity Diabetic peripheral neuropathy associated with type 2 diabetes mellitus Surgical History 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 S/P foot surgery, right History of amputation of great toe Family History Denies family history of Cancer Social History Smoking and tobacco/nicotine status: current every day tobacco/nicotine user cigarettes Packs smoked per day: 1 Years cigarettes smoked: 53 [ Other cigarette details: Started at 1970] Vitals/I&O/Wt Last Vital Signs Temp 98.4 F 07/14/25 14:51 Pulse 60 07/14/25 14:51 Resp 18 07/14/25 14:51 BP 119/54 07/14/25 14:51 Pulse Ox 94 07/14/25 14:51 O2 Del Method Room Air 07/14/25 14:51 Weight last 48 hrs Weight 180 lb Physical Exam Narrative: Patient is alert and oriented ?3 and in no acute distress.? The following is a focused bilateral lower extremity exam. Ambulating without assistance. VASCULAR: Dorsalis pedis palpable, posterior tibial arteries palpable.? Capillary refill time less than 3 seconds to the right third toe and 3 seconds to the left hallux. Calf is supple and nontender proximally and distally.? Decreased pedal hair growth. NEUROLOGICAL: Protective sensation intact 0/10 sites, tested with [place] monofilament to bilateral feet. DERMATOLOGICAL: Full-thickness wound to right medial forefoot at amputation stump measures 2.5 cm x 2.3 cm x 0.5 cm with periwound erythema, warmth, purulent drainage able to probe to bone at the first metatarsal. MUSCULOSKELETAL: Status post right transmetatarsal amputation. Muscle strength +5 in all 3 planes bilateral foot and ankle. Forefoot varus at the right is reducible. Mild tenderness against resistance of dorsiflexion right ankle across extensor tendons. Data 07/15/25 04:40 07/15/25 04:40 A&P Assessment and plan 1. Diabetic ulcer of other part of right foot associated with type 2 diabetes mellitus, with necrosis of bone: 2. Cellulitis of right foot: 3. Chronic ulcer of right foot with necrosis of bone: Plan: Jace Christie is a 75-year-old diabetic male presents with a worsening of wound with osteomyelitis of the right first metatarsal and surrounding cellulitis. History of right TMA. CT scan right foot significant for osteomyelitis of the first metatarsal leading edge. CRP elevated at 128.6 Cellulitis right foot Bedside debridement and postdebridement wound culture taken in podiatry clinic prior to admission 07/14/2025 Appreciate admission to hospital service and initiation of empiric IV antibiotics N.p.o. at midnight Scheduled for excision of first metatarsal right foot 07/15/2025 at noon, may require a delayed closure once soft tissue quality is improved and cellulitis resolved during this hospitalization. Podiatry will follow. PDMP PDMP Reviewed: Not Reviewed Coding Level of Care Code Acute Code for [facility] Fwd Diagnoses 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 Cellulitis of right foot L03.115 Chronic ulcer of right foot with necrosis of bone L97.514
--- NOTE | 2025-07-14 16:04 | CTR_ITS ---
PROCEDURE INFORMATION: Exam: CT Right Lower Extremity Without Contrast, Foot Exam date and time: 07/14/2025 4:29 PM Age: 75 years old Clinical indication: Other: Infection; Prior surgery; Surgery date: 6+ months; Surgery type: RT ankle; Additional info: Foot infection, exposed bone TECHNIQUE: Imaging protocol: CT of the right lower extremity without contrast was performed. Exam focused on the foot. Radiation optimization: All CT scans at this facility use at least one of these dose optimization techniques: automated exposure control; mA and/or kV adjustment per patient size (includes targeted exams where dose is matched to clinical indication); or iterative reconstruction. COMPARISON: CR XR foot RT min 3V* [id number] 07/14/2025 3:46 PM RADIATION DOSE METRICS: Total DLP (mGy-cm): 152.55 FINDINGS: Bones/joints: Hyperdensity within the intramedullary cavity slightly due to previous antibiotic disc. Status post ORIF of the distal tibia and fibula with intact hardware. Soft tissues: Diffuse cellulitis and subcutaneous edema with ulceration noted overlying the stump with gas noted abutting the cortex of the distal aspect of the amputated 1st metatarsal. There is cortical irregularity adjacent to this gas pocket suggesting osteomyelitis. There is soft tissue density underlying the distal portion of the residual 1st metatarsal which appears to be to be due to a phlegmon with no definite drainable collection. CT/CT foot RT wo con* [id number] IMPRESSION: Osteomyelitis of the distal aspect of the amputated 1st metatarsal. Cellulitis and phlegmon around the medial aspect of the stump with no definite abscess collection.
[2025-07-14 16:27] LABS: Hematocrit 34.7 % (37-53); Hemoglobin 11.00 g/dL (11.27-16.99); Mean Corpuscular HGB Conc 31.7 g/dL (30-55); Mean Corpuscular Hemoglobin 28.9 pg (27-33); Mean Corpuscular Volume 91.3 fl (82-101); Nucleated Red Blood Cells % 0 %; Platelet Count 309 10^3/cmm (157-399); Red Blood Count 3.80 10^6/uL (3.85-5.65); White Blood Count 11.07 10^3/uL (3.29-11.43)
--- NOTE | 2025-07-14 16:30 | PC.PHAR ---
[facility] 4:30pm 07/14/25
[2025-07-14 16:45] LABS: Alanine Aminotransferase 6 U/L (0-41); Albumin Level 3.5 g/dL (3.5-5.2); Alkaline Phosphatase 94 U/L (40-130); Anion Gap 14.4 (5-19); Aspartate Amino Transferase 7 U/L (0-40); Blood Urea Nitrogen 18 mg/dL (8-23); Calcium 8.9 mg/dL (8.5-10.5); Carbon Dioxide 24 mmol/L (22-29); Chloride 105 mmol/L (98-107); Creatinine Clr Calc Pharmacy 49.3391; Globulin 3.0 g/dL (1.3-4.6); Glucose 101 mg/dL (65-115); Osmolality Calculated 292 mOsm/kg (285-295); Potassium 3.4 mmol/L (3.5-5.1); Sodium 140 mmol/L (136-145); Total Protein 6.5 g/dL (6.6-8.7)
[2025-07-14 16:46] LABS: Lactic Sepsis W/Reflex 1.0 mmol/L (0.5-2.2)
[2025-07-14] MEDS: cefepime 2,000 mg SDV 2000 MG IVP (16:56)
--- NOTE | 2025-07-14 17:16 | PM.HP ---
Providers/Chief Complaint Primary Care Provider: MILADIS Leblanc Chief Complaint: open wound on R foot History of Present Illness Jace Christie is a 75 year old male with a past medical history of atrial fibrillation on Eliquis, type 2 diabetes mellitus, hypertension, hyperlipidemia, current smoker, current diabetic foot ulcer right TMA site, who presents to [facility] from podiatry clinic due to concerns for worsening diabetic ulcer. Currently patient alert oriented x 3, following commands, he tells me that he has not taken any of his medications, denies any fevers, no chills, he does admit the diabetic foot ulcer has been worsening, increased drainage, with surrounding pain and tenderness, Review of Systems Const: Denies: fever(s) or chills Card: Denies: chest pain Resp: Denies: dyspnea Medications/Allergies Home Medications ?Medication ?Instructions ?Recorded ?Confirmed ?Last Taken ?Type tamsulosin 0.4 mg capsule 0.8 mg PO BEDTIME 06/21/22 07/14/25 12/07/24 History acetaminophen 500 mg tablet 1,000 mg (2 x 500 mg) PO Q6H PRN 10/22/22 07/14/25 Unknown Rx Pain 14 days #20 tabs Diabetic Shoes with toe filler to #1 ea 11/10/22 07/14/25 Unknown Rx right apixaban 5 mg tablet (Eliquis) 5 mg PO BID 03/20/23 07/14/25 12/08/24 History potassium chloride 20 mEq 20 meq PO BID #60 tabs 05/02/23 07/14/25 12/08/24 Rx tablet,extended release albuterol sulfate 90 mcg/actuation 2 puff inhalation QID PRN 05/14/23 07/14/25 Unknown History aerosol inhaler shortness of breath or wheezing nitroglycerin 0.4 mg sublingual 0.4 mg sublingual Q5M PRN chest 05/15/23 07/14/25 Unknown Rx tablet pain #25 tabs furosemide 40 mg tablet 40 mg PO QAM 06/08/23 07/14/25 12/08/24 History budesonide 160 mcg-glycopyr 9 2 inh inhalation BID #10.7 grams 02/26/24 07/14/25 12/08/24 Rx mcg-formot 4.8 mcg/actuation HFA inhaler (Breztri Aerosphere) famotidine 20 mg tablet (Pepcid AC) 20 mg PO BID 11/16/24 07/14/25 12/08/24 History gabapentin 100 mg capsule 100 mg PO TID 11/16/24 07/14/25 12/08/24 History glucometer testing kit #1 ea 11/22/24 07/14/25 Unknown Rx lancets #200 ea 11/22/24 07/14/25 Unknown Rx strips #100 ea 11/22/24 07/14/25 Unknown Rx amiodarone 200 mg tablet (Pacerone) 200 mg PO DAILY 12/08/24 07/14/25 12/08/24 History ipratropium 0.5 mg-albuterol 3 mg 3 ml inhalation QID PRN Shortness 12/08/24 07/14/25 Unknown History (2.5 mg base)/3 mL nebulization Of Breath soln baclofen 10 mg tablet 5 mg (1/2 x 10 mg) PO BID PRN 12/12/24 07/14/25 Unknown Rx spasm #60 tabs Diabetic shoes #1 ea 05/20/25 07/14/25 Unknown Rx diclofenac sodium 1 % topical gel 2 g topical QID 30 days #150 grams 06/16/25 07/14/25 Unknown Rx (Voltaren Arthritis Pain) Cam boot to right #1 ea 07/14/25 07/14/25 Unknown Rx Allergies Allergy/AdvReac Type Severity Reaction Status Date / Time codeine (From AdvReac Mild ADR-Dizzine Verified 07/14/25 11:03 Tylenol-Codeine #3) ss PFSH Acute PFSH: Medical History Encephalopathy Acute psychosis Wernicke encephalopathy Atrial fibrillation Diabetes mellitus Black tarry stools Melena Chronic anticoagulation Acute blood loss anemia Dehydration Shock Hypotension Atrial fibrillation with rapid ventricular response COPD (chronic obstructive pulmonary disease) Acute upper GI bleed Hyperglycemia COVID Hypoxemia COPD exacerbation Non-pressure 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 Dehiscence of amputation stump of right lower extremity Diabetic peripheral neuropathy associated with type 2 diabetes mellitus Surgical History 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 S/P foot surgery, right History of amputation of great toe Family History Denies family history of Cancer Social History Smoking and tobacco/nicotine status: current every day tobacco/nicotine user cigarettes Packs smoked per day: 1 Years cigarettes smoked: 53 [ Other cigarette details: Started at 1970] Vitals/I&O/Wt Last Vital Signs Temp 98.4 F 07/14/25 14:51 Pulse 60 07/14/25 14:51 Resp 18 07/14/25 14:51 BP 119/54 07/14/25 14:51 Pulse Ox 94 07/14/25 14:51 O2 Del Method Room Air 07/14/25 14:51 Weight last 48 hrs Weight 81.647 kg Physical Exam Const: COMMON NORMALS: no acute distress and patient oriented x3 Eye: COMMON NORMALS: Equal, round and reactive pupils present Resp: COMMON NORMALS: normal respiratory effort, No retractions, No use of accessory muscles and clear to auscultation bilaterally AUSCULTATION: clear to auscultation bilaterally Cardio: COMMON NORMALS: no JVD, regular rate, regular rhythm, S1 normal heart sound present and S2 normal heart sound present RATE: regular rate RHYTHM: regular rhythm HEART SOUNDS: S1 normal heart sound present and S2 normal heart sound present GI: COMMON NORMALS: Normal to inspection, nondistended, normoactive bowel sounds present, Soft to palpation and non-tender : COMMON NORMALS: Yes no CVA tenderness Extremity: COMMON NORMALS: no calf tenderness and no pedal edema NARRATIVE EXTREMITY EXAM: Right foot, TMA site, with diabetic wound, measuring 1 x 1 cm Bilateral DP PT pulses palpable Neuro: COMMON NORMALS: patient oriented x3 Psych: COMMON NORMALS: mental status grossly normal Data 07/14/25 16:08 07/14/25 16:08 Micro: Microbiology 07/14/25 16:16 Blood Culture - Preliminary Blood SPECIMEN COLLECTED 07/14/25 16:08 Blood Culture - Preliminary Blood SPECIMEN COLLECTED A&P Assessment and plan 1. Diabetic foot infection: 2. Diabetic foot ulcer associated with type 2 diabetes mellitus: Plan: Right foot diabetic wound, diabetic foot infection, deep tissue infection Plan - Blood cultures -CRP, sed rate - CT scan ordered -Arterial ultrasound ordered - Vancomycin - Zosyn - Moderate dose insulin sliding scale - Podiatry consulted - N.p.o. midnight - Plans of surgical invention tomorrow PDMP PDMP Reviewed: Not Reviewed Attestations Medical Necessity Statement*: Patient requires hospitalization for right foot diabetic foot infection, with deep tissue infection, inpatient, greater than 2 midnights Diagnoses Diabetic foot infection E11.628; L08.9 Diabetic foot ulcer associated with type 2 diabetes mellitus E11.621; L97.509
--- NOTE | 2025-07-14 18:30 | PHA.VACGOAL ---
Vancomycin Goal - Goal Vancomycin Indication:: Other - Therapy Day of therpy:: Day []of [] . Actual body weight (kg): 180 lb - Data Labs: WBC 11.07 10^3/uL (3.29-11.43) 07/14/25 16:08 RBC 3.80 10^6/uL (3.85-5.65) L 07/14/25 16:08 Hgb 11.00 g/dL (11.27-16.99) L 07/14/25 16:08 Hct 34.7 % (37-53) L 07/14/25 16:08 MCV 91.3 fl (82-101) 07/14/25 16:08 MCH 28.9 pg (27-33) 07/14/25 16:08 MCHC 31.7 g/dL (30-55) 07/14/25 16:08 RDW 13.5 % (12.1-15.1) 07/14/25 16:08 Sodium 140 mmol/L (136-145) 07/14/25 16:08 Potassium 3.4 mmol/L (3.5-5.1) L 07/14/25 16:08 Chloride 105 mmol/L (98-107) 07/14/25 16:08 Carbon Dioxide 24 mmol/L (22-29) 07/14/25 16:08 Anion Gap 14.4 (5-19) 07/14/25 16:08 BUN 18 mg/dL (8-23) 07/14/25 16:08 Creatinine 1.5 mg/dL (0.7-1.2) H 07/14/25 16:08 GFR Calculation Not Reportable 07/14/25 16:08 Treatment plan:: new consult Regimen:: PT RECEIVED 2 GRAMS IN ER MAINTENANCE DOSE 750 MG Q12H FOR DIABETIC FOOT INFECTION
[2025-07-14] MEDS: pantoprazole 40 mg SDV IVP (18:48)
[2025-07-14 18:55] LABS: NT Pro B Type Natriuretic Pept 2015 pg/mL (0-450)
[2025-07-14 19:00] LABS: Estmated Average Glucose 126; Hemoglobin A1C 6.0 % (4.0-6.0)
[2025-07-14 19:16] LABS: Cholesterol 118 mg/dL (0-200); HDL Cholesterol 27 mg/dL (60-100); Thyroid Stimulating Hormone 1.08 uIU/mL (0.27-4.20); Triglycerides 198 mg/dL (0-150)
[2025-07-14 19:30] LABS: Add Urine Microscopic? NO
[2025-07-14 19:32] LABS: Glucose Urine UA Negative (Normal); Nitrate Urine Negative (Negative); Specific Gravity, Urine 1.020 (1.005-1.030)
[2025-07-14 19:52] LABS: Charge for UA Resulting for Rev
[2025-07-14] MEDS: piperacillin-tazobactam 3.375 GM in sodium chloride 0.9% (plus) 50 ML IV (19:53)
[2025-07-15] VITALS (22 sets, daily range): BP systolic 117–173; BP diastolic 53–78; PULSE 56–80; RESP 16–19; TEMP 36.4–37.6; O2SAT 90–96
[2025-07-15 04:55] LABS: Hematocrit 29.9 % (37-53); Hemoglobin 9.80 g/dL (11.27-16.99); Mean Corpuscular HGB Conc 32.8 g/dL (30-55); Mean Corpuscular Hemoglobin 29.4 pg (27-33); Mean Corpuscular Volume 89.8 fl (82-101); Nucleated Red Blood Cells % 0 %; Platelet Count 278 10^3/cmm (157-399); Red Blood Count 3.33 10^6/uL (3.85-5.65); White Blood Count 10.50 10^3/uL (3.29-11.43)
[2025-07-15 05:16] LABS: INR 1.15 (0.8-1.2); Prothrombin Time 15.50 SECONDS (12.1-14.9)
[2025-07-15] MEDS: piperacillin-tazobactam 3.375 GM in sodium chloride 0.9% (plus) 50 ML IV ×2 (05:19→20:26)
[2025-07-15 05:29] LABS: Alanine Aminotransferase 6 U/L (0-41); Albumin Level 3.3 g/dL (3.5-5.2); Alkaline Phosphatase 81 U/L (40-130); Anion Gap 15.5 (5-19); Aspartate Amino Transferase 5 U/L (0-40); Blood Urea Nitrogen 15 mg/dL (8-23); Calcium 8.3 mg/dL (8.5-10.5); Carbon Dioxide 20 mmol/L (22-29); Chloride 108 mmol/L (98-107); Creatinine Clr Calc Pharmacy 58.1975; Globulin 2.7 g/dL (1.3-4.6); Glucose 108 mg/dL (65-115); Magnesium 2.1 mg/dL (1.7-2.3); Osmolality Calculated 291 mOsm/kg (285-295); Potassium 3.5 mmol/L (3.5-5.1); Sodium 140 mmol/L (136-145); Total Protein 6.0 g/dL (6.6-8.7)
--- NOTE | 2025-07-15 09:16 | PC.CHAP ---
Pastoral Care Encounter/Spiritual Assessment Type of Contact [] Declined nursing home assistant visit [] Patient/Family/Request visit [] Outpatient visit [] Follow-up visit [] Physician referral [] Code/Alert [x] Routine visit [] Staff referral [] Actively dying [] Patient sleeping [] Family support [] [] Out of room [] Palliative care [] [] Receiving care in room [] Pre-surgical visit [] Trauma [] Long length of stay [] ICU visit [] Other: Relational/Emotional Strength [x] Patient feels connected with others/family/visitors/staff [] Distress [] Loneliness/isolation [] Abandonment Spirituality of Patient [x] Person of Yvonne [] Attends Latter-Day of their Yvonne [x] Believes in Prayer [] Reads Bible or Hoahaoism materials [] There are Spiritual issues to be addressed Infantry Unit Leader Interventions [x] Prayer [x] Active listening [] Non-anxious presence [x] Spiritual/emotional support [] Crisis/trauma care [] Spiritual counseling [] Bereavement support [] Provided bereavement packet [] Provided Bible/devotional materials [] Provided toy/stuffed animal, coloring book to patient or family member [] Provided Communion [] Anointing/[place] [] Salvation [x] Completed spiritual assessment [] Other: Impact on Illness or Injury [] Angry [] Fearful [] Anxious [] Often cries [] Exhaustion [] Unable to work [] Unable to attend jehovah's witness [] Unable to walk/stand [] Unable to read [] Unable to drive [] Unable to eat/drink [] Unable to sleep [] Unable to be with family [] Patient intubated [] Other: Summary Time spent with patient 5 min
--- NOTE | 2025-07-15 11:18 | ANES.PREANE2 ---
Pre-Anesthetic Assessment Height/Weight: Height 6 ft 2 in Weight 190 lb Temp Pulse Resp BP Pulse Ox O2 Del Method 98.3 F 66 18 141/64 90 Room Air 07/15/25 08:00 07/15/25 08:00 07/15/25 08:00 07/15/25 08:00 07/15/25 08:00 07/15/25 08:00 Preop Diagnosis: Osteomyelitis right foot Operation Date: 07/15/25 12:00 Proposed Procedures p Incision And Drainage-debridement with excision of first metatarsal(Right) - CURT VerdinM Was Beta Flor taken within 24 hours: Yes Was Clonidine taken within 24 hours: N/A Social No alcohol and No tobacco Exam alert and oriented x 3 Expiratory wheezing on auscultation. Patient has been getting multiple breathing treatments while inpatient. Will give a DuoNeb prior to going to the OR Airway Submandibular: within normal limits Cervical ROM: within normal limits Mallampati: Class III Dentition: full Anesthetic Plan ASA status: 4 Anesthesia: Choice Other: Patient here for cellulitis of the foot History of type II DM, no insulin. BS 108 GERD, controlled with Pepcid Hypertension on metoprolol Wheezing on auscultation, DuoNeb ordered Labs reviewed from today and acceptable for procedure EKG showing A-fib, patient is on chronic amiodarone Medications/Allergies Home Medications ?Medication ?Instructions ?Recorded ?Confirmed ?Last Taken ?Type tamsulosin 0.4 mg capsule 0.8 mg PO BEDTIME 06/21/22 07/15/25 07/14/25 History acetaminophen 500 mg tablet 1,000 mg (2 x 500 mg) PO Q6H PRN 10/22/22 07/15/25 Unknown Rx Pain 14 days #20 tabs Diabetic Shoes with toe filler to #1 ea 11/10/22 07/14/25 Unknown Rx right apixaban 5 mg tablet (Eliquis) 5 mg PO BID 03/20/23 07/15/25 07/14/25 History potassium chloride 20 mEq 20 meq PO BID #60 tabs 05/02/23 07/15/25 07/14/25 Rx tablet,extended release albuterol sulfate 90 mcg/actuation 2 puff inhalation QID PRN 05/14/23 07/15/25 07/13/25 History aerosol inhaler shortness of breath or wheezing nitroglycerin 0.4 mg sublingual 0.4 mg sublingual Q5M PRN chest 05/15/23 07/15/25 Unknown Rx tablet pain #25 tabs furosemide 40 mg tablet 40 mg PO QAM 06/08/23 07/15/25 07/14/25 History budesonide 160 mcg-glycopyr 9 2 inh inhalation BID #10.7 grams 02/26/24 07/15/25 07/15/25 Rx mcg-formot 4.8 mcg/actuation HFA inhaler (Breztri Aerosphere) famotidine 20 mg tablet (Pepcid AC) 20 mg PO BID 11/16/24 07/15/25 07/14/25 History gabapentin 100 mg capsule 100 mg PO TID 11/16/24 07/15/25 07/14/25 History glucometer testing kit #1 ea 11/22/24 07/14/25 Unknown Rx lancets #200 ea 11/22/24 07/14/25 Unknown Rx strips #100 ea 11/22/24 07/14/25 Unknown Rx amiodarone 200 mg tablet (Pacerone) 200 mg PO DAILY 12/08/24 07/15/25 07/14/25 History ipratropium 0.5 mg-albuterol 3 mg 3 ml inhalation QID PRN Shortness 12/08/24 07/15/25 Unknown History (2.5 mg base)/3 mL nebulization Of Breath soln Diabetic shoes #1 ea 05/20/25 07/14/25 Unknown Rx diclofenac sodium 1 % topical gel 2 g topical QID 30 days #150 grams 06/16/25 07/15/25 Unknown Rx (Voltaren Arthritis Pain) Cam boot to right #1 ea 07/14/25 07/14/25 Unknown Rx baclofen 10 mg tablet 10 mg PO BID PRN Pain 07/15/25 07/15/25 Unknown History cholecalciferol (vitamin D3) 10 10 mcg PO DAILY 07/15/25 07/15/25 07/14/25 History mcg (400 unit) tablet (Vitamin D3) metoprolol tartrate 25 mg tablet 25 mg PO BID 07/15/25 07/15/25 07/14/25 History quetiapine 50 mg tablet 50 mg PO BEDTIME 07/15/25 07/15/25 Unknown History rosuvastatin 10 mg sprinkle capsule 10 mg PO QPM 07/15/25 07/15/25 07/14/25 History temazepam 15 mg capsule 15 mg PO BEDTIME PRN Sleep 07/15/25 07/15/25 Unknown History Allergies Allergy/AdvReac Type Severity Reaction Status Date / Time codeine (From AdvReac Mild ADR-Dizzine Verified 07/14/25 11:03 Tylenol-Codeine #3) ss Current Medications Generic Name Dose Route Start Last Admin Trade Name Freq PRN Reason Stop Dose Admin Albuterol/Ipratropium 3 ml 07/14/25 20:50 07/15/25 05:58 Ipratropium-Albuterol 3 Ml Neb INHALATION 3 ml Q6H PRN Administration SHORTNESS OF BREATH Amiodarone HCl 200 mg 07/15/25 05:00 07/15/25 04:13 Amiodarone 200 Mg Tablet PO Not Given DAILY JOSÉ MIGUEL Enoxaparin Sodium 80 mg 07/14/25 18:30 07/15/25 05:13 Enoxaparin 80 Mg/0.8 Ml Syringe SUBCUT Not Given Q12H JOSÉ MIGUEL Furosemide 40 mg 07/15/25 05:00 07/15/25 04:09 Furosemide 40 Mg Tablet PO 40 mg QAM JOSÉ MIGUEL Administration Gabapentin 100 mg 07/15/25 05:00 07/15/25 04:09 Gabapentin 100 Mg Capsule PO 100 mg TID JOSÉ MIGUEL Administration Vancomycin HCl 750 mg/ Sodium 250 mls @ 250 mls/hr 07/15/25 05:00 07/15/25 05:14 Chloride IV Infused Q12H JOSÉ MIGUEL Infusion Piperacillin Sod/Tazobactam 50 mls @ 12.5 mls/hr 07/14/25 20:00 07/15/25 10:02 Sod 3.375 gm/ Sodium Chloride IV Infused Q8H JOSÉ MIGUEL Infusion Protocol Insulin Human Lispro 0 unit 07/14/25 18:15 07/15/25 07:17 Insulin Lispro 100 Unit/1 Ml SUBCUT Not Given TIDWM JOSÉ MIGUEL Protocol Pantoprazole Sodium 40 mg 07/14/25 18:15 07/14/25 18:48 Pantoprazole 40 Mg Sdv IVP 40 mg Q24H JOSÉ MIGUEL Administration Potassium Chloride 20 meq 07/15/25 05:00 07/15/25 04:09 Potassium Chloride Er 20 Meq Tablet PO 20 meq BID JOSÉ MIGUEL Administration [facility] Anesthesia Medical History (Updated 07/15/25 @ 06:29 by Zachary Melendez DPM) Encephalopathy Acute psychosis Wernicke encephalopathy Atrial fibrillation Diabetes mellitus Black tarry stools Melena Chronic anticoagulation Acute blood loss anemia Dehydration Shock Hypotension Atrial fibrillation with rapid ventricular response COPD (chronic obstructive pulmonary disease) Acute upper GI bleed Hyperglycemia COVID Hypoxemia COPD exacerbation Non-pressure 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 Dehiscence of amputation stump of right lower extremity Diabetic peripheral neuropathy associated with type 2 diabetes mellitus Surgical History 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 S/P foot surgery, right History of amputation of great toe Family History Denies family history of Cancer Social History Smoking and tobacco/nicotine status: current every day tobacco/nicotine user cigarettes Packs smoked per day: 1 Years cigarettes smoked: 53 [ Other cigarette details: Started at 1970] Data Anesthesia 07/15/25 04:40 07/15/25 04:40 Short CBC 07/14/25 07/15/25 Range/Units 16:08 04:40 WBC 11.07 10.50 (3.29-11.43) 10^3/uL Hgb 11.00 L 9.80 L (11.27-16.99) g/dL Hct 34.7 L 29.9 L (37-53) % MCV 91.3 89.8 (82-101) fl Plt Count 309 278 (157-399) 10^3/cmm Neut % (Auto) 76.2 76.1 % Neut # (Auto) 8.44 H 7.99 H (1.8-7.7) 10^3/uL BMP 07/14/25 07/15/25 16:08 04:40 Sodium 140 140 Potassium 3.4 L 3.5 Chloride 105 108 H Carbon Dioxide 24 20 L BUN 18 15 Creatinine 1.5 H 1.3 H Glucose 101 108 Calcium 8.9 8.3 L Cardiac Enzymes 07/14/25 Range/Units 17:38 NT-Pro-B Natriuret Pep 2015 H (0-450) pg/mL Liver Function 07/14/25 07/15/25 Range/Units 16:08 04:40 Total Bilirubin 0.2 0.3 (0.15-1.2) mg/dL AST 7 5 (0-40) U/L ALT 6 6 (0-41) U/L Alkaline Phosphatase 94 81 (40-130) U/L Albumin 3.5 3.3 L (3.5-5.2) g/dL Urine 07/14/25 Range/Units 19:25 Urine Color Yellow (Yellow) Urine Appearance Clear (CLEAR) Urine pH 6.5 (5-7) Ur Specific [place] 1.020 (1.005-1.030) Urine Protein Trace A (Negative) Urine Glucose (UA) Negative (Normal) Urine Ketones Negative (Negative) Urine Nitrate Negative (Negative) Urine Bilirubin Negative (Negative) Ur Leukocyte Esterase Negative (Negative) Coags 07/14/25 07/15/25 16:08 04:40 ESR 34 H PT 15.50 H INR 1.15 C-Reactive Protein 128.6 H Microbiology 07/14/25 17:38 Blood Culture - Preliminary Blood SPECIMEN COLLECTED 07/14/25 17:38 Blood Culture - Preliminary Blood SPECIMEN COLLECTED 07/14/25 16:16 Blood Culture - Preliminary Blood SPECIMEN COLLECTED 07/14/25 16:08 Blood Culture - Preliminary Blood SPECIMEN COLLECTED Cardiac Studies: Echocardiogram 11/17/24 Echocardiogram Limited Views 05/14/23
[2025-07-15] MEDS: BUPivacaine 0.5% INJ 30 mL 15 ML INJECTION (12:21)
--- NOTE | 2025-07-15 12:31 | W.PM.BPON ---
Date of Procedure: 12/28/23 Surgeon: Zachary Melendez DPM Shirring Tender(s): Francesco Procedure(s) performed: Incision of bone cortex right foot Findings of the procedure(s): osteomyelitis right first metatarsal Estimated blood loss: 5 mL Specimen(s) removed: None Post-operative diagnosis: Osteomyelitis right foot first metatarsal
--- NOTE | 2025-07-15 12:31 | PM.OP ---
Operative Report Date of procedure: July 15, 2025 Pre-op diagnosis: Full-thickness wound with osteomyelitis right foot. Post-op diagnosis: Same Post-op findings: Osteomyelitis right foot Procedure done: Incision of bone cortex right foot. CPT code 48056 Implants: No implants Specimens removed/disposition: None Pathology: None Surgeon: Zachary Melendez DPM Soaker Meat: Francesco Estimated blood loss: 5 6 IV fluids: See intraoperative documentation Urine output: No urine output Complications: no complications Findings: Devitalized bone consistent with osteomyelitis right first metatarsal Brief History: Jace Christie is a 75-year-old diabetic male presents with a worsening of wound with osteomyelitis of the right first metatarsal and surrounding cellulitis. History of right TMA. CT scan right foot significant for osteomyelitis of the first metatarsal leading edge. CRP elevated at 128.6 Cellulitis right foot Bedside debridement and postdebridement wound culture taken in podiatry clinic prior to admission 07/14/2025 Appreciate admission to hospital service and initiation of empiric IV antibiotics N.p.o. at midnight Scheduled for excision of first metatarsal right foot 07/15/2025 at noon, may require a delayed closure once soft tissue quality is improved and cellulitis resolved during this hospitalization. Procedure: Under mild sedation the patient was brought to the operating room and remained on the gurney in supine position. A timeout was performed. Anesthesia was then administered by the anesthesia service. Local anesthesia was injected by myself consisting of 30 cc of one-to-one mixture 1% lidocaine and 0.5% Marcaine plain in a right Glynn block fashion. Well-padded pneumatic tourniquet applied to the right high calf. The right lower extremity was scrubbed, prepped and draped utilizing normal aseptic technique. Right foot was elevated and tourniquet inflated to 250 mmHg. Attention was directed to the full-thickness wound at the right medial forefoot with the first metatarsal protruding out of the wound noted to have devitalized bone with findings of ventura discoloration and poor density, the first metatarsal was incised down to cortex and sharply debrided with pickups and a #15 blade as well as rongeur, decision was made to perform a full metatarsal removal that remained as a more definitive means of clean margin, this was then excised and passed from operative field. The incision was irrigated with copious amounts of sterile saline solution, devitalized soft tissue was debrided sharply with pickups and a 15 blade. All bleeders were ligated and cauterized as necessary. Medial cuneiform was identified and noted to have appropriate density and color without purulence or surrounding devitalized tissue. Further irrigation performed with Irrisept and saline solution followed by dressing consisting of 4 x 4 gauze saline wet-to-dry, Kerlix, Ruben wrap. Tourniquet was deflated and a hyperemic response is noted to the amputation stump of the right foot. Patient tolerated the procedure and anesthesia well and was transferred to the PACU with vital signs stable and vascular status intact. Following a period of postoperative monitoring he will be transferred back to [facility] to continue IV antibiotics and monitor over the next 24 to 48 hours, planning on delayed closure potentially SundayJuly 17, 2025.
--- NOTE | 2025-07-15 12:42 | ANE.PACU2 ---
Inpatient post-anesthesia follow up: Airway intact: Yes Vital signs: Temperature 97.7 F Pulse Rate 63 Respiratory Rate 18 Blood Pressure 154/70 Pulse Oximetry 96 Oxygen Delivery Me thod Nasal Cannula Oxygen Flow Rate 1.5 Fraction of Inspir ed Oxygen Hydration adequate: Yes Nausea and vomiting: No Pain level: 1 Mental status: Baseline
--- NOTE | 2025-07-15 15:04 | P.PN_ITS ---
Subjective 2 Subjective: Patient was seen this morning, alert oriented x 3, follows all commands, no fevers, chills, no cough Vitals/I&O/Wt Last Vital Signs Temp 97.7 F 07/15/25 14:00 Pulse 60 07/15/25 14:00 Resp 19 H 07/15/25 14:00 BP 154/70 07/15/25 14:00 Pulse Ox 94 07/15/25 14:00 O2 Del Method Nasal Cannula 07/15/25 14:00 O2 Flow Rate 2 07/15/25 12:38 07/15/25 07/15/25 07/15/25 06:59 14:59 22:59 Intake Total 300 / 1700 50 / 50 Output Total 750 / 1350 1430 / 1430 Balance -450 / 350 -1380 / -1380 Weight last 48 hrs Weight 86.183 kg Weight 86.211 kg Weight 81.647 kg Physical Exam 2 Const: COMMON NORMALS: no acute distress and patient oriented x3 Resp: COMMON NORMALS: normal respiratory effort, No retractions, No use of accessory muscles and clear to auscultation bilaterally AUSCULTATION: clear to auscultation bilaterally Cardio: COMMON NORMALS: regular rate, regular rhythm, S1 normal heart sound present and S2 normal heart sound present RATE: regular rate RHYTHM: r egular rhythm HEART SOUNDS: S1 normal heart sound present and S2 normal heart sound present GI: COMMON NORMALS: Normal to inspection, nondistended, normoactive bowel sounds present and non-tender Extremity: COMMON NORMALS: no pedal edema Neuro: COMMON NORMALS: patient oriented x3 Psych: COMMON NORMALS: mental status grossly normal Data 07/15/25 04:40 07/15/25 04:40 Micro: Microbiology 07/14/25 17:38 Blood Culture - Preliminary Blood SPECIMEN COLLECTED 07/14/25 17:38 Blood Culture - Preliminary Blood SPECIMEN COLLECTED 07/14/25 16:16 Blood Culture - Preliminary Blood SPECIMEN COLLECTED 07/14/25 16:08 Blood Culture - Preliminary Blood SPECIMEN COLLECTED A&P Assessment and plan 1. Diabetic foot infection: 2. Diabetic foot ulcer associated with type 2 diabetes mellitus: Plan: Right foot diabetic wound, diabetic foot infection, deep tissue infection Plan - Blood cultures -[id number], sed rate 34 - CT scan CT/CT foot RT wo con* [id number] IMPRESSION: Osteomyelitis of the distal aspect of the amputated 1st metatarsal. Cellulitis and phlegmon around the medial aspect of the stump with no definite abscess collection. -Arterial [place] US/[place] [id number] IMPRESSION: 1. Occluded right SFA with reconstitution at popliteal artery. Infrapopliteal vessels patent with monophasic waveforms. 2. Occluded left SFA with reconstitution at popliteal artery. Visualized infrapopliteal vessels patent with monophasic waveforms. -will discuss case with cardiology - Vancomycin - Zosyn - Moderate dose insulin sliding scale - Podiatry consulted -History of atrial fibrillation continue -Type 2 diabetes mellitus, low-dose insulin sliding scale - N.p.o. plan for surgical intervention today - Plans of surgical invention tomorrow PDMP PDMP Reviewed: Not Reviewed Attestations 2 Medical Necessity Statement*: Patient requires hospitalization for right foot diabetic foot infection Diagnoses Diabetic foot infection E11.628; L08.9 Diabetic foot ulcer associated with type 2 diabetes mellitus E11.621; L97.509
[2025-07-15] MEDS: morphine 4 mg/mL SDV 1 mL 2 MG IVP ×2 (16:10→20:25)
--- NOTE | 2025-07-15 17:17 | USR_ITS ---
PROCEDURE INFORMATION: Exam: US Duplex Bilateral Lower Extremity Arteries Exam date and time: 07/15/2025 8:22 AM Age: 75 years old Clinical indication: Pain; Leg, lower; Bilateral; Additional info: Diabetic foot wound TECHNIQUE: Imaging protocol: Real-time ultrasound scan of the arteries of the bilateral lower extremities with 2-D ventura scale, color Doppler flow and spectral waveform analysis. Images documented and saved. Total images: [id number] COMPARISON: CT foot RT wo con* [id number] 07/14/2025 4:29 PM FINDINGS: Right common femoral artery: No occlusion but with multiple mild stenosis. Monophasic waveform. Right superficial femoral artery: Occluded. Right popliteal artery: No occlusion. Monophasic waveform. Right calf/foot arteries: No occlusion in the visualized arteries. Monophasic waveforms. Dorsalis pedis artery is patent. Left common femoral artery: No occlusion but with multiple mild stenosis. Monophasic waveform. Left superficial femoral artery: Occluded. Left popliteal artery: No occlusion. Monophasic waveform. Left calf/foot arteries: No occlusion. Left anterior tibial artery not attempted. Monophasic waveforms. Dorsalis pedis artery is patent. Other arteries: Severe atherosclerotic disease burden is evident. Soft tissues: Ankle brachial index of 0.5 on the right and 0.6 on the left. US/[place] [id number] IMPRESSION: 1. Occluded right SFA with reconstitution at popliteal artery. Infrapopliteal vessels patent with monophasic waveforms. 2. Occluded left SFA with reconstitution at popliteal artery. Visualized infrapopliteal vessels patent with monophasic waveforms.
[2025-07-15] MEDS: HYDROcodone-acetaminophen 10-325 mg Tablet 1 TAB PO (18:21)
[2025-07-15] MEDS: pantoprazole 40 mg SDV IVP (18:22)
[2025-07-16] VITALS (15 sets, daily range): BP systolic 150–166; BP diastolic 62–79; PULSE 59–75; RESP 16–18; TEMP 36.2–36.9; O2SAT 90–94; BMI 24.1
[2025-07-16] MEDS: HYDROcodone-acetaminophen 10-325 mg Tablet 1 TAB PO ×3 (00:05→21:57)
[2025-07-16] MEDS: piperacillin-tazobactam 3.375 GM in sodium chloride 0.9% (plus) 50 ML IV ×3 (03:49→20:54)
[2025-07-16 04:44] LABS: Hematocrit 30.8 % (37-53); Hemoglobin 9.70 g/dL (11.27-16.99); Mean Corpuscular HGB Conc 31.5 g/dL (30-55); Mean Corpuscular Hemoglobin 28.9 pg (27-33); Mean Corpuscular Volume 91.7 fl (82-101); Nucleated Red Blood Cells % 0 %; Platelet Count 283 10^3/cmm (157-399); Red Blood Count 3.36 10^6/uL (3.85-5.65); White Blood Count 9.46 10^3/uL (3.29-11.43)
[2025-07-16 05:03] LABS: INR 1.07 (0.8-1.2); Prothrombin Time 14.70 SECONDS (12.1-14.9)
[2025-07-16 05:17] LABS: Alanine Aminotransferase 6 U/L (0-41); Albumin Level 3.1 g/dL (3.5-5.2); Alkaline Phosphatase 86 U/L (40-130); Anion Gap 17.4 (5-19); Aspartate Amino Transferase 10 U/L (0-40); Blood Urea Nitrogen 12 mg/dL (8-23); Calcium 8.2 mg/dL (8.5-10.5); Carbon Dioxide 19 mmol/L (22-29); Chloride 105 mmol/L (98-107); Creatinine Clr Calc Pharmacy 63.0389; Globulin 2.9 g/dL (1.3-4.6); Glucose 103 mg/dL (65-115); Magnesium 2.0 mg/dL (1.7-2.3); Osmolality Calculated 286 mOsm/kg (285-295); Potassium 3.4 mmol/L (3.5-5.1); Sodium 138 mmol/L (136-145); Total Protein 6.0 g/dL (6.6-8.7)
[2025-07-16] MEDS: morphine 4 mg/mL SDV 1 mL 2 MG IVP ×4 (06:53→20:53)
--- NOTE | 2025-07-16 08:25 | P.CONIM_ITS ---
<Statement entered by Alexys Alcantara MD - 07/16/25 20:46> Patient was evaluated and cared for in conjunction with an advanced practice practitioner. I personally examined the patient and reviewed the chart and all pertinent data including imaging, telemetry, and laboratory results. I discussed the patient in detail with the advanced practice practitioner. Please see their note for complete H&P testing result and agreed upon plan of care for the patient. I detailed discussion with the patient by bedside. He agrees to proceed with the procedure as he would like to get over it since he is suffering. Dr. Zachary Melendez will proceed with closure of the foot debridement of the wound once we revascularize. GENERAL: Patient is alert, awake and oriented x3. HEART: Regular S1 and S2. No murmur, rub or gallop. LUNGS: Clear to auscultate bilaterally. CENTRAL NERVOUS SYSTEM: Grossly nonfocal. EXTREMITIES: Right foot wrapped Assessment and plan Critical limb ischemia with nonhealing wound/diabetic foot of right side Severe peripheral disease with claudication of the left leg Will proceed with peripheral angiogram/intervention including atherectomy angioplasty drug-coated balloon if indicated tomorrow. Patient will be n.p.o. overnight. Providers/Reason For Consult 2 Consulting Physician/Specialty*: Dr Millie Alcantara, interventional cardiology Reason for Consult*: PAD, critical limb ischemia, non healing wound Requesting Physician: Dr Davila Attending Physician: Stevie Davila MD Primary Care Provider: MILADIS Leblanc History of Present Illness History of Present Illness Jace Christie is a 75 year old male with past medical history of atrial fibrillation anticoagulated with apixaban, type 2 diabetes, hypertension, hyperlipidemia, smoker. He was admitted to the hospital due to open wound on his right foot worsening with drainage and pain. He was evaluated with lower extremity arterial duplex finding ORTIZ 0.5 on the right 0.6 on the left with features of occlusion of the bilateral SFA, monophasic waveform in the bilateral popliteal arteries, monophasic waveforms below the knee bilaterally. Dorsalis pedis patent bilaterally. Consult was requested regarding revascularization to improve wound healing. Review of Systems 2 Const: Denies: fever(s), chills, change in weight, fatigue or diaphoresis Eyes: Denies: change in vision ENMT: Denies: epistaxis Card: Reports: leg pain with exertion; Denies: chest pain, palpitations, irregular heart rhythm, edema, syncope, pre- syncope, dyspnea on exertion or orthopnea Resp: Denies: dyspnea, productive cough or wheezing GI: Denies: nausea, vomiting, hematemesis, hematochezia or melena : Denies: hematuria Musc: Denies: extremity swelling Merrill/Lymph: Denies: easy bruising or easy bleeding Medications/Allergies Home Medications ?Medication ?Instructions ?Recorded ?Confirmed ?Last Taken ?Type tamsulosin 0.4 mg capsule 0.8 mg PO BEDTIME 06/21/22 1 07/14/25 History acetaminophen 500 mg tablet 1,000 mg (2 x 500 mg) PO Q 6H PRN 10/22/22 07/15/25 Unknown Rx Pain 14 days #20 tabs Diabetic Shoes with toe filler to #1 ea 11/10/2207/14 Unknown Rx right apixaban 5 mg tablet (Eliquis) 5 mg PO BID 03/20/2307/14/25 History potassium chloride 20 mEq 20 meq PO BID #60 tabs 05/0207/15/25 07/14/25 Rx tablet,extended release albuterol sulfate 90 mcg/actuation 2 puff inhalation Q ID PRN 05/14/23 07/15/25 07/13/25 History aerosol inhaler shortness of breath or wheez ing nitroglycerin 0.4 mg sublingual 0.4 mg sublingual Q5M PRN chest 05/15/23 07/15/25 Unknown Rx tablet pain #25 tabs furosemide 40 mg tablet 40 mg PO QAM 06/08/2307/14/25 History budesonide 160 mcg-glycopyr 9 2 inh inhalation BID #10 .7 grams 02/26/24 07/15/25 07/15/25 Rx mcg-formot 4.8 mcg/actuation HFA inhaler (Breztri Aerosphere) famotidine 20 mg tablet (Pepcid AC) 20 mg PO BID 11/1607/15/25 07/14/25 History gabapentin 100 mg capsule 100 mg PO TID 11/16/2407/1507/14/25 History glucometer testing kit #1 ea 11/22/24 07/14/25 Unkn own Rx lancets #200 ea 11/22/24 07/14/25 Un known Rx strips #100 ea 11/22/24 07/14/25 Un known Rx amiodarone 200 mg tablet (Pacerone) 200 mg PO DAILY 07/15/25 07/14/25 History ipratropium 0.5 mg-albuterol 3 mg 3 ml inhalation QID PRN Shortness 12/08/24 07/15/25 Unknown History (2.5 mg base)/3 mL nebulization Of Breath soln Diabetic shoes #1 ea 05/20/25 07/14/25 Unkn own Rx diclofenac sodium 1 % topical gel 2 g topical QID 30 d ays #150 grams 06/16/25 07/15/25 Unknown Rx (Voltaren Arthritis Pain) Cam boot to right #1 ea 07/14/25 07/14/25 Unkn own Rx baclofen 10 mg tablet 10 mg PO BID PRN Pain 07/15/25 Unknown History cholecalciferol (vitamin D3) 10 10 mcg PO DAILY 07/15/25 07/14/25 History mcg (400 unit) tablet (Vitamin D3) metoprolol tartrate 25 mg tablet 25 mg PO BID 07/15/25 07/15/25 07/14/25 History quetiapine 50 mg tablet 50 mg PO BEDTIME 07/15/25 Unknown History rosuvastatin 10 mg sprinkle capsule 10 mg PO QPM 07/1507/15/25 07/14/25 History temazepam 15 mg capsule 15 mg PO BEDTIME PRN Sleep 1 07/15/25 Unknown History Allergies Allergy/AdvReac Type Severity Reaction Status Date / Time codeine (From AdvReac Mild ADR-Dizzine Verified 07/14/25 11:03 Tylenol-Codeine #3) ss Current Medications Generic Name Dose Route Start Last Admin Trade Name Freq PRN Reason Stop Dose Admin Hydrocodone Bitart/Acetaminophen 1 tab 07/15/25 17:01 07/16/25 03:48 Hydrocodone-Acetaminophen 10-325 Mg Tablet PO 1 tab Q4H PRN Administration MODERATE PAIN Albuterol/Ipratropium 3 ml 07/14/25 20:50 07/16/25 02:03 Ipratropium-Albuterol 3 Ml Neb INHALATION 3 ml Q6H PRN Administration SHORTNESS OF BREATH Albuterol/Ipratropium 3 ml 07/15/25 14:00 07/16/25 07:40 Ipratropium-Albuterol 3 Ml Neb INHALATION 3 ml TID.RESP JOSÉ MIGUEL Administration Amiodarone HCl 200 mg 07/15/25 05:00 07/16/25 05:52 Amiodarone 200 Mg Tablet PO 200 mg DAILY JOSÉ MIGUEL Administration Baclofen 5 mg 07/14/25 18:15 07/16/25 00:05 Baclofen 10 Mg Tablet PO 5 mg BID PRN Administration spasm Enoxaparin Sodium 80 mg 07/14/25 18:30 07/16/25 05:52 Enoxaparin 80 Mg/0.8 Ml Syringe SUBCUT 80 mg Q12H JOSÉ MIGUEL Administration Furosemide 40 mg 07/15/25 05:00 07/16/25 05:52 Furosemide 40 Mg Tablet PO 40 mg QAM JOSÉ MIGUEL Administration Gabapentin 100 mg 07/15/25 05:00 07/16/25 05:52 Gabapentin 100 Mg Capsule PO 100 mg TID JOSÉ MIGUEL Administration Vancomycin HCl 750 mg/ Sodium 250 mls @ 250 mls/hr 07/15/25 05:00 07/16/25 07:14 Chloride IV Infused Q12H JOSÉ MIGUEL Infusion Piperacillin Sod/Tazobactam 50 mls @ 12.5 mls/hr 07/14/25 20:00 07/16/25 07:14 Sod 3.375 gm/ Sodium Chloride IV 12.5 mls/hr Q8H JOSÉ MIGUEL Infusion Protocol Insulin Human Lispro 0 unit 07/14/25 18:15 07/16/25 07:56 Insulin Lispro 100 Unit/1 Ml SUBCUT Not Given TIDWM [facility] Protocol Morphine Sulfate 2 mg 07/14/25 18:15 07/16/25 06:53 Morphine 4 Mg/Ml Sdv 1 Ml IVP 2 mg Q4H PRN Administration SEVERE PAIN Pantoprazole Sodium 40 mg 07/14/25 18:15 07/15/25 18:22 Pantoprazole 40 Mg Sdv IVP 40 mg Q24H JOSÉ MIGUEL Administration Potassium Chloride 20 meq 07/15/25 05:00 07/16/25 05:52 Potassium Chloride Er 20 Meq Tablet PO 20 meq BID JOSÉ MIGUEL Administration Tamsulosin HCl 0.8 mg 07/15/25 21:00 07/15/25 20:28 Tamsulosin 0.4 Mg Capsule PO 0.8 mg BEDTIME JOSÉ MIGUEL Administration PFSH Acute 2 PFSH: Medical History Encephalopathy Acute psychosis Wernicke encephalopathy Atrial fibrillation Diabetes mellitus Black tarry stools Melena Chronic anticoagulation Acute blood loss anemia Dehydration Shock Hypotension Atrial fibrillation with rapid ventricular response COPD (chronic obstructive pulmonary disease) Acute upper GI bleed Hyperglycemia COVID Hypoxemia COPD exacerbation Non-pressure 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 Dehiscence of amputation stump of right lower extremity Diabetic peripheral neuropathy associated with type 2 diabetes mellitus Surgical History 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 S/P foot surgery, right History of amputation of great toe Family History Denies family history of Cancer Social History Smoking and tobacco/nicotine status: current every day tobacco/nicotine user cigarettes Packs smoked per day: 1 Years cigarettes smoked: 53 [ Other cigarette details: Started at 1970] Vitals/I&O/Wt Last Vital Signs Temp 97.8 F 07/16/25 07:49 Pulse 70 07/16/25 07:49 Resp 16 07/16/25 07:49 BP 154/70 07/16/25 07:49 Pulse Ox 91 07/16/25 07:49 O2 Del Method Nasal Cannula 07/16/25 07:49 O2 Flow Rate 1 07/16/25 07:42 07/15/25 07/16/25 07/16/25 22:59 06:59 14:59 Intake Total 1730 / 1855.833 75.833 / 1855.833 250 / 250 Output Total 350 / 1780 Balance 1380 / 75.833 75.833 / 75.833 250 / 250 Weight last 48 hrs Weight 187 lb 13.341 oz Weight 190 lb Weight 190 lb 1 oz Weight 180 lb Physical Exam 2 Const: COMMON NORMALS: no acute distress and patient oriented x3 GENERAL APPEARANCE: cooperative and comfortable ORIENTATION/CONSCIOUSNESS: Yes awake, Yes oriented to person, Yes oriented to place and Yes oriented to time Chest: COMMONS NORMALS: normal inspection of the chest and normal palpation of entire chest wall CHEST: Yes Symmetrical chest wall rise Resp: COMMON NORMALS: normal respiratory effort, No retractions, No use of accessory muscles and clear to auscultation bilaterally EFFORT & INSPECTION: Yes symmetric chest movement AUSCULTATION: clear to auscultation bilaterally and wheezes scattered wheezes Cardio: COMMON NORMALS: regular rate, S1 normal heart sound present, S2 normal heart sound present, No gallops present (Cardio), No clicks present (Cardio), No murmurs present (Cardio) and No rub (Cardio) RATE: regular rate RHYTHM: a bnormal rhythm irregularly irregular HEART SOUNDS: S1 normal heart sound present and S2 normal heart sound present PERIPHERAL PULSES: radial pulses present and posterior tibial pulses present (right foot wrapped in Kerlix and RENALDO, surgical dressing in place) positive left Extremity: COMMON NORMALS: no pedal edema NARRATIVE EXTREMITY EXAM: lower legs warm to touch and pink Neuro: COMMON NORMALS: patient oriented x3 and moves all extremities S ENSORIUM/ORIENTATION: Yes oriented to person, Yes oriented to place and Yes oriented to time Data 07/16/25 04:30 07/16/25 04:30 Micro: Microbiology 07/14/25 17:38 Blood Culture - Preliminary Blood NEGATIVE TO DATE 07/14/25 17:38 Blood Culture - Preliminary Blood NEGATIVE TO DATE 07/14/25 16:16 Blood Culture - Preliminary Blood NEGATIVE TO DATE 07/14/25 16:08 Blood Culture - Preliminary Blood NEGATIVE TO DATE A&P Assessment and plan 1. Critical limb ischemia of right lower extremity: 2. Diabetic foot ulcer associated with type 2 diabetes mellitus: Plan: I discussed the condition of the blood vessels below the knee currently and the nonhealing wound in the right foot. I discussed the need for peripheral angiogram with intervention to improve wound healing and decrease symptoms of claudication. He is in agreement that it needs to be done however he is tired of having procedures done and would like to think about having the procedure tomorrow morning. Dr. Alcantara will stop by after clinic is finished this afternoon and discuss with him further for the final decision. PDMP PDMP Reviewed: Not Reviewed Coding Level of Care Code Acute Code for [facility] Diagnoses Critical limb ischemia of right lower extremity I70.221 Diabetic foot ulcer associated with type 2 diabetes mellitus E11.621; L97.509
--- NOTE | 2025-07-16 12:35 | P.PN_ITS ---
Subjective 2 Subjective: Patient was seen this morning, currently alert oriented x 3, follow commands, denies any fevers, no chills, no cough Vitals/I&O/Wt Last Vital Signs Temp 98.1 F 07/16/25 11:51 Pulse 67 07/16/25 11:51 Resp 18 07/16/25 11:51 BP 150/68 07/16/25 11:51 Pulse Ox 91 07/16/25 11:51 O2 Del Method Nasal Cannula 07/16/25 11:51 O2 Flow Rate 1 07/16/25 07:42 07/15/25 07/16/25 07/16/25 22:59 06:59 14:59 Intake Total 1730 / 1780 75.833 / 1855.833 634.167 / 634.167 Output Total 350 / 1780 400 / 400 Balance 1380 / 0 75.833 / 75.833 234.167 / 234.167 Weight last 48 hrs Weight 85.2 kg Weight 86.183 kg Weight 86.211 kg Weight 81.647 kg Physical Exam 2 Const: COMMON NORMALS: no acute distress and patient oriented x3 Resp: COMMON NORMALS: normal respiratory effort, No retractions, No use of accessory muscles and clear to auscultation bilaterally AUSCULTATION: clear to auscultation bilaterally Cardio: COMMON NORMALS: regular rate, regular rhythm, S1 normal heart sound present and S2 normal heart sound present RATE: regular rate RHYTHM: r egular rhythm HEART SOUNDS: S1 normal heart sound present and S2 normal heart sound present GI: COMMON NORMALS: Normal to inspection, nondistended, normoactive bowel sounds present and non-tender Extremity: COMMON NORMALS: no pedal edema NARRATIVE EXTREMITY EXAM: Right lower extremity wrapped Neuro: COMMON NORMALS: patient oriented x3 Psych: COMMON NORMALS: mental status grossly normal Data 07/16/25 04:30 07/16/25 04:30 Micro: Microbiology 07/14/25 17:38 Blood Culture - Preliminary Blood NEGATIVE TO DATE 07/14/25 17:38 Blood Culture - Preliminary Blood NEGATIVE TO DATE 07/14/25 16:16 Blood Culture - Preliminary Blood NEGATIVE TO DATE 07/14/25 16:08 Blood Culture - Preliminary Blood NEGATIVE TO DATE A&P Assessment and plan 1. Diabetic foot infection: 2. Diabetic foot ulcer associated with type 2 diabetes mellitus: 3. Peripheral vascular disease: Plan: Right foot diabetic wound, diabetic foot infection, deep tissue infection Plan - Blood cultures -[id number], sed rate 34 - CT scan CT/CT foot RT wo con* [id number] IMPRESSION: Osteomyelitis of the distal aspect of the amputated 1st metatarsal. Cellulitis and phlegmon around the medial aspect of the stump with no definite abscess collection. -Arterial ultrasound US/[place] [id number] IMPRESSION: 1. Occluded right SFA with reconstitution at popliteal artery. Infrapopliteal vessels patent with monophasic waveforms. 2. Occluded left SFA with reconstitution at popliteal artery. Visualized infrapopliteal vessels patent with monophasic waveforms. - Cardiology plans on doing peripheral angiogram with intervention 07/17/2025 - Vancomycin - Zosyn - Moderate dose insulin sliding scale - Podiatry consulted, -Patient is status post excision of bone, text right foot currently n.p.o. with plans of going back to the OR today for delayed closure -History of atrial fibrillation continue -Type 2 diabetes mellitus, low-dose insulin sliding scale - N.p.o. plan for surgical intervention today - Plans of peripheral angiogram tomorrow PDMP PDMP Reviewed: Not Reviewed Attestations 2 Medical Necessity Statement*: Patient requires hospitalization for right foot diabetic foot infection, peripheral vascular disease Diagnoses Diabetic foot infection E11.628; L08.9 Diabetic foot ulcer associated with type 2 diabetes mellitus E11.621; L97.509 Peripheral vascular disease I73.9
--- NOTE | 2025-07-16 15:39 | P.PN_ITS ---
Subjective 2 Subjective: Patient is 1 day status post I&D of incision bone cortex right foot secondary to osteomyelitis date of operation July 15, 2025, resting comfortably in bed, denies any acute events overnight. Anticipating delayed closure tomorrow. Vitals/I&O/Wt Last Vital Signs Temp 98.1 F 07/16/25 11:51 Pulse 70 07/16/25 13:51 Resp 16 07/16/25 13:51 BP 150/68 07/16/25 11:51 Pulse Ox 93 07/16/25 13:51 O2 Del Method Nasal Cannula 07/16/25 13:51 O2 Flow Rate 1 07/16/25 13:51 07/16/25 07/16/25 07/16/25 06:59 14:59 22:59 Intake Total 75.833 / 1855.833 634.167 / 634.167 Output Total 400 / 400 Balance 75.833 / 75.833 234.167 / 234.167 Weight last 48 hrs Weight 187 lb 13.341 oz Weight 190 lb Weight 190 lb 1 oz Physical Exam 2 Narrative: Patient is alert and oriented ?3 and in no acute distress.? The following is a focused bilateral lower extremity exam. Ambulating without assistance. VASCULAR: Dorsalis pedis palpable, posterior tibial arteries palpable.? Capillary refill time less than 3 seconds to the right third toe and 3 seconds to the left hallux. Calf is supple and nontender proximally and distally.? Decreased pedal hair growth. NEUROLOGICAL: Protective sensation intact 0/10 sites, tested with Enid Kevan monofilament to bilateral feet. DERMATOLOGICAL: Resolved erythema right foot, open wound without purulence. MUSCULOSKELETAL: Status post right transmetatarsal amputation. Muscle strength +5 in all 3 planes bilateral foot and ankle. Forefoot varus at the right is reducible. Mild tenderness against resistance of dorsiflexion right ankle across extensor tendons. Data 07/16/25 04:30 07/16/25 04:30 Micro: Microbiology 07/14/25 17:38 Blood Culture - Preliminary Blood NEGATIVE TO DATE 07/14/25 17:38 Blood Culture - Preliminary Blood NEGATIVE TO DATE 07/14/25 16:16 Blood Culture - Preliminary Blood NEGATIVE TO DATE 07/14/25 16:08 Blood Culture - Preliminary Blood NEGATIVE TO DATE A&P Assessment and plan 1. Diabetic ulcer of other part of right foot associated with type 2 diabetes mellitus, with necrosis of bone: 2. Cellulitis of right foot: 3. Chronic ulcer of right foot with necrosis of bone: Plan: Jace Christie is a 75-year-old diabetic male presents with a worsening of wound with osteomyelitis of the right first metatarsal and surrounding cellulitis. History of right TMA. 1 day status post incision of bone cortex right foot with first metatarsectomy secondary to osteomyelitis date of operation 07/15/2025 Clinical improvement of soft tissue at today's visit, planning on delayed closure tomorrow N.p.o. at midnight Planned revascularization to the right lower extremity tomorrow a.m. Delayed closure tomorrow morning following vascular intervention. PDMP PDMP Reviewed: Not Reviewed Attestations 2 Medical Necessity Statement*: Patient requires hospitalization for right foot diabetic foot infection, peripheral vascular disease Coding Level of Care Code Acute Code for [facility] Diagnoses 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 Cellulitis of right foot L03.115 Chronic ulcer of right foot with necrosis of bone L97.514
[2025-07-16] MEDS: pantoprazole 40 mg SDV IVP (17:53)
[2025-07-17] VITALS (52 sets, daily range): BP systolic 94–181; BP diastolic 53–81; PULSE 64–100; RESP 12–27; TEMP 36.6–37.4; O2SAT 92–99
[2025-07-17] MEDS: piperacillin-tazobactam 3.375 GM in sodium chloride 0.9% (plus) 50 ML IV ×3 (04:12→20:57)
[2025-07-17] MEDS: HYDROcodone-acetaminophen 10-325 mg Tablet 1 TAB PO ×3 (04:13→20:55)
[2025-07-17 04:43] LABS: Hematocrit 31.2 % (37-53); Hemoglobin 10.20 g/dL (11.27-16.99); Mean Corpuscular HGB Conc 32.7 g/dL (30-55); Mean Corpuscular Hemoglobin 29.2 pg (27-33); Mean Corpuscular Volume 89.4 fl (82-101); Nucleated Red Blood Cells % 0 %; Platelet Count 315 10^3/cmm (157-399); Red Blood Count 3.49 10^6/uL (3.85-5.65); White Blood Count 11.00 10^3/uL (3.29-11.43)
[2025-07-17 04:54] LABS: INR 1.06 (0.8-1.2); Prothrombin Time 14.50 SECONDS (12.1-14.9)
[2025-07-17 05:03] LABS: Alanine Aminotransferase 8 U/L (0-41); Albumin Level 3.4 g/dL (3.5-5.2); Alkaline Phosphatase 90 U/L (40-130); Anion Gap 18.9 (5-19); Aspartate Amino Transferase 18 U/L (0-40); Blood Urea Nitrogen 10 mg/dL (8-23); Calcium 8.6 mg/dL (8.5-10.5); Carbon Dioxide 20 mmol/L (22-29); Chloride 105 mmol/L (98-107); Creatinine Clr Calc Pharmacy 75.2917; Globulin 3.0 g/dL (1.3-4.6); Glucose 111 mg/dL (65-115); Magnesium 2.3 mg/dL (1.7-2.3); Osmolality Calculated 290 mOsm/kg (285-295); Potassium 3.9 mmol/L (3.5-5.1); Sodium 140 mmol/L (136-145); Total Protein 6.4 g/dL (6.6-8.7)
--- NOTE | 2025-07-17 07:26 | P.HPUD_ITS ---
Surgery/Procedure H&P Update DATE OF PROCEDURE: July 17, 2025 DATE H&P PERFORMED: 07/16/25 H&P UPDATE INFORMATION: I have reviewed H&P completed within last 30 days, I have examined patient prior to procedure and No changes to prior documentation PREOP DIAGNOSIS: Osteomyelitis right foot, critical limb ischemia PRIMARY INDICATION FOR PROCEDURE: Nonhealing ulcers Critical limb ischemia Osteomyelitis of right foot Severely reduced ORTIZ abnormal ultrasound of the right leg PLANNED PROCEDURE: Operation Date: 07/15/25 12:00 Proposed Procedures p Incision And Drainage-debridement with excision of first metatarsal(Right) - Zachary Melendez DPM Operation Date: 07/17/25 12:05 Proposed Procedures p Delayed Wound Closure(Right) - Zachary Melendez DPM GENERAL: Patient is alert, awake and oriented x3. HEART: Regular S1 and S2. No murmur, rub or gallop. LUNGS: Breath sounds with expiratory wheezing bilaterally. CENTRAL NERVOUS SYSTEM: Grossly nonfocal. EXTREMITIES: Lower extremities with out edema bilaterally. Plan: Will nebulize patient now before the procedure PATIENT REASSESSED PRIOR TO SEDATION, WITH NO CHANGE NOTED: Yes PHYSICAL EXAM: alert, oriented x 3, clear to auscultation bilaterally and re gular rate & rhythm AIRWAY EVAL/ANESTHESIA PLAN: ASA II, Risks, benefits & alternatives of sedation and/or procedure discussed and Patient agrees to continue as planned ADDITIONAL INFORMATION: All risk-benefit and alternative for the procedure has been explained to the patient. Patient understand percent risk of stroke major bleed. Patient understand 5% risk of minor bleeding oozing infection hematoma urgent or emergent vascular surgery ID contrast-induced nephropathy and worst-case scenario acute limb ischemia leading to loss of limb and amputation. Patient clearly understood it and would like to proceed with it.
--- NOTE | 2025-07-17 08:30 | PM.PROC ---
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 Right common iliac is occluded in its distal segment and very calcified Right external iliac is chronically occluded Right internal iliac is occluded Right common femoral constitute in the distal segment but occluded in the proximal segment Right profundofemoral is patent is diffuse luminal irregularity Right SFA is chronically occluded Right popliteal is chronically occluded but reconstituted in the distal and Right tibioperoneal trunk has high-grade stenosis it is a calcified vessel Right anterior tibial appeared to be occluded in the proximal segment Right posterior tibial appeared to be occluded Right peroneal appeared to be occluded 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 Left external iliac has diffuse luminal irregularity without significant stenosis Left internal iliac has luminal irregularity Left common femoral has luminal irregularity without significant stenosis Left profunda has luminal irregularity without significant stenosis Left SFA is chronically occluded in mid segment and reconstitute in the distal segment Left popliteal is patent Left tibioperoneal trunk is patent Left posterior tibial appear to be patent Left anterior tibial and peroneal not well-visualized because of timing out of contrast Plan: Given the anatomy and pathology and highly calcified nature of the patient surgical consultation and referral recommended Plan: Angio-Seal has been placed in the left common femoral bedrest for 4 hours. Full note to be dictated Coding Level of Care Code Acute Code for [facility]
--- NOTE | 2025-07-17 09:07 | PC.SOCIAL ---
IMM Updated Updated pt on IMM. No questions voiced. Provided pt a copy. Initialed, dated, & timed a copy & placed in chart.
--- NOTE | 2025-07-17 11:17 | W.PM.OPSUD ---
Surgery/Procedure H&P Update DATE OF PROCEDURE: July 17, 2025 DATE H&P PERFORMED: 07/16/25 H&P UPDATE INFORMATION: I have reviewed H&P completed within last 30 days, I have examined patient prior to procedure, No changes to prior documentation, H&P is in [facility] EMR on date indicated and Risks and benefits of the procedure reviewed PREOP DIAGNOSIS: Osteomyelitis right foot, critical limb ischemia PLANNED PROCEDURE: Operation Date: 07/15/25 12:00 Proposed Procedures p Incision And Drainage-debridement with excision of first metatarsal(Right) - Zachary Melendez DPM Operation Date: 07/17/25 07:00 Proposed Procedures p Peripheral Diagnostic(Not Applicable) - Alexys Alcantara MD Operation Date: 07/17/25 12:05 Proposed Procedures p Delayed Wound Closure(Right) - Zachary Melendez DPM
--- NOTE | 2025-07-17 12:07 | P.BOP_ITS ---
Date of Procedure: 12/28/23 Surgeon: Zachary Melendez DPM Bioinformatics Programmer(s): Sergio Procedure(s) performed: Delayed closure right foot Findings of the procedure(s): None Estimated blood loss: 5 mL Specimen(s) removed: None Post-operative diagnosis: Osteomyelitis right foot
--- NOTE | 2025-07-17 12:08 | PM.OP ---
Operative Report Date of procedure: July 17, 2025 Pre-op diagnosis: Full-thickness wound with osteomyelitis right foot. Surgeon: Zachary Melendez DPM
--- NOTE | 2025-07-17 12:20 | ANE.PACU2 ---
Inpatient post-anesthesia follow up: Airway intact: Yes Vital signs: Temperature 98.7 F Pulse Rate 78 Respiratory Rate 18 Blood Pressure 144/71 Pulse Oximetry 95 Oxygen Delivery Me thod Nasal Cannula Oxygen Flow Rate 1 Fraction of Inspir ed Oxygen Hydration adequate: Yes Nausea and vomiting: No Pain level: 1 Mental status: Baseline
--- NOTE | 2025-07-17 13:33 | P.PN_ITS ---
Subjective 2 Subjective: Patient was seen this morning, after his peripheral angiogram, he is currently alert oriented x 3, following all commands, no pain complaints, currently n.p.o. for closure of his right foot diabetic foot infection, currently has no complaints Vitals/I&O/Wt Last Vital Signs Temp 98.7 F 07/17/25 12:54 Pulse 78 07/17/25 13:22 Resp 18 07/17/25 13:22 BP 144/71 07/17/25 12:54 Pulse Ox 95 07/17/25 13:22 O2 Del Method Nasal Cannula 07/17/25 13:22 O2 Flow Rate 1 07/17/25 13:22 07/16/25 07/17/25 07/17/25 22:59 06:59 14:59 Intake Total 780 / 1414.167 300 / 1714.167 50 / 50 Output Total 1100 / 1500 250 / 1750 827 / 827 Balance -320 / -85.833 50 / -35.833 -777 / -777 Weight last 48 hrs Weight 85.275 kg Weight 85.2 kg Physical Exam 2 Const: COMMON NORMALS: no acute distress and patient oriented x3 Resp: COMMON NORMALS: normal respiratory effort, No retractions, No use of accessory muscles and clear to auscultation bilaterally AUSCULTATION: clear to auscultation bilaterally Cardio: COMMON NORMALS: regular rate, regular rhythm, S1 normal heart sound present and S2 normal heart sound present RATE: regular rate RHYTHM: r egular rhythm HEART SOUNDS: S1 normal heart sound present and S2 normal heart sound present GI: COMMON NORMALS: Normal to inspection, nondistended, normoactive bowel sounds present and non-tender Extremity: COMMON NORMALS: no pedal edema Neuro: COMMON NORMALS: patient oriented x3 Psych: COMMON NORMALS: mental status grossly normal Data 07/17/25 04:16 07/17/25 04:16 A&P Assessment and plan 1. Diabetic foot infection: 2. Diabetic foot ulcer associated with type 2 diabetes mellitus: 3. Peripheral vascular disease: Plan: Right foot diabetic wound, diabetic foot infection, deep tissue infection Plan - Blood cultures -OGH180.6, sed rate 34 - CT scan CT/CT foot RT wo con* [id number] IMPRESSION: Osteomyelitis of the distal aspect of the amputated 1st metatarsal. Cellulitis and phlegmon around the medial aspect of the stump with no definite abscess collection. -Arterial ultrasound US/[place] [id number] IMPRESSION: 1. Occluded right SFA with reconstitution at popliteal artery. Infrapopliteal vessels patent with monophasic waveforms. 2. Occluded left SFA with reconstitution at popliteal artery. Visualized infrapopliteal vessels patent with monophasic waveforms. - Cardiology plans on doing peripheral angiogram with intervention 07/17/2025 - Vancomycin - Zosyn - Moderate dose insulin sliding scale - Podiatry consulted, -Patient is status post excision of bone, text right foot currently n.p.o. with plans of going back to the OR today for delayed closure -History of atrial fibrillation continue -Type 2 diabetes mellitus, low-dose insulin sliding scale - N.p.o. 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 Right common iliac is occluded in its distal segment and very calcified Right external iliac is chronically occluded Right internal iliac is occluded Right common femoral constitute in the distal segment but occluded in the proximal segment Right profundofemoral is patent is diffuse luminal irregularity Right SFA is chronically occluded Right popliteal is chronically occluded but reconstituted in the distal and Right tibioperoneal trunk has high-grade stenosis it is a calcified vessel Right anterior tibial appeared to be occluded in the proximal segment Right posterior tibial appeared to be occluded Right peroneal appeared to be occluded 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 Left external iliac has diffuse luminal irregularity without significant stenosis Left internal iliac has luminal irregularity Left common femoral has luminal irregularity without significant stenosis Left profunda has luminal irregularity without significant stenosis Left SFA is chronically occluded in mid segment and reconstitute in the distal segment Left popliteal is patent Left tibioperoneal trunk is patent Left posterior tibial appear to be patent Left anterior tibial and peroneal not well-visualized because of timing out of contrast Plan: Given the anatomy and pathology and highly calcified nature of the patient surgical consultation and referral recommended Plan - Continue therapy - Aspirin, statin, anticoagulant therapy PDMP PDMP Reviewed: Not Reviewed Attestations 2 Medical Necessity Statement*: Patient requires hospitalization right foot diabetic wound, diabetic foot infection, deep tissue infection, peripheral vascular disease Diagnoses Diabetic foot infection E11.628; L08.9 Diabetic foot ulcer associated with type 2 diabetes mellitus E11.621; L97.509 Peripheral vascular disease I73.9
[2025-07-17] MEDS: pantoprazole 40 mg SDV IVP (16:58)
--- NOTE | 2025-07-17 17:37 | PC.NURSE ---
see vitals for post cardiac cath flowsheet charted in vitals in chart
[2025-07-17] MEDS: morphine 4 mg/mL SDV 1 mL 2 MG IVP (23:57)
[2025-07-18] VITALS (10 sets, daily range): BP systolic 135–148; BP diastolic 62–68; PULSE 60–89; RESP 15–18; TEMP 36.5–36.6; O2SAT 88–94
[2025-07-18] MEDS: HYDROcodone-acetaminophen 10-325 mg Tablet 1 TAB PO (01:43)
[2025-07-18 04:21] LABS: Hematocrit 28.3 % (37-53); Hemoglobin 9.00 g/dL (11.27-16.99); Mean Corpuscular HGB Conc 31.8 g/dL (30-55); Mean Corpuscular Hemoglobin 29.1 pg (27-33); Mean Corpuscular Volume 91.6 fl (82-101); Nucleated Red Blood Cells % 0 %; Platelet Count 274 10^3/cmm (157-399); Red Blood Count 3.09 10^6/uL (3.85-5.65); White Blood Count 10.70 10^3/uL (3.29-11.43)
[2025-07-18] MEDS: morphine 4 mg/mL SDV 1 mL 2 MG IVP ×2 (04:31→09:59)
[2025-07-18] MEDS: piperacillin-tazobactam 3.375 GM in sodium chloride 0.9% (plus) 50 ML IV (04:35)
[2025-07-18 04:41] LABS: Anion Gap 14.9 (5-19); Blood Urea Nitrogen 13 mg/dL (8-23); Calcium 8.2 mg/dL (8.5-10.5); Carbon Dioxide 22 mmol/L (22-29); Chloride 104 mmol/L (98-107); Glucose 131 mg/dL (65-115); Osmolality Calculated 286 mOsm/kg (285-295); Potassium 3.9 mmol/L (3.5-5.1); Sodium 137 mmol/L (136-145)
[2025-07-18 05:01] LABS: Creatinine Clr Calc Pharmacy 54.3472
--- NOTE | 2025-07-18 09:12 | P.PN_ITS ---
Subjective 2 Subjective: Patient had a peripheral angiogram yesterday. He was found to extensive calcification in the peripheral arteries. He is referred for surgical consult and possible revascularization Medications: Medication Review Details: Current Medications Acetaminophen (Acetaminophen 325 Mg Tablet) 650 mg PO Q6H PRN PRN Reason: Mild/Mod Pain Or Temp >/= 101 Last Admin: 07/16/25 14:48 Dose: 650 mg Hydrocodone Bitart/Acetaminophen (Hydrocodone-Acetaminophen 10-325 Mg Tablet) 1 tab PO Q4H PRN PRN Reason: MODERATE PAIN Last Admin: 07/18/25 01:43 Dose: 1 tab Al Hydrox/Mg Hydrox/Simethicone (Xxai-Hll-Iqxpzsrzt-Angelina 30 Ml Udc) 30 ml PO Q15M PRN PRN Reason: INDIGESTION Albuterol/Ipratropium (Ipratropium-Albuterol 3 Ml Neb) 3 ml INHALATION Q6H PRN PRN Reason: SHORTNESS OF BREATH Last Admin: 07/18/25 02:13 Dose: 3 ml Albuterol/Ipratropium (Ipratropium-Albuterol 3 Ml Neb) 3 ml INHALATION TID.RESP JOSÉ MIGUEL Last Admin: 07/18/25 08:06 Dose: 3 ml Alprazolam (Alprazolam 0.5 Mg Tablet) 0.25 mg PO TID PRN PRN Reason: ANXIETY Amiodarone HCl (Amiodarone 200 Mg Tablet) 200 mg PO DAILY [facility] Last Admin: 07/18/25 04:34 Dose: 200 mg Aspirin (Aspirin 81 Mg Ec Tablet) 81 mg PO DAILY JOSÉ MIGUEL Last Admin: 07/18/25 04:33 Dose: 81 mg Atorvastatin Calcium (Atorvastatin 40 Mg Tablet) 40 mg PO BEDTIME [facility] Last Admin: 07/17/25 20:56 Dose: 40 mg Atropine Sulfate (Atropine 1 Mg/Ml Sdv 1 Ml) 0.5 mg IVP PRN PRN PRN Reason: Symptomatic bradycardia Baclofen (Baclofen 10 Mg Tablet) 5 mg PO BID PRN PRN Reason: spasm Last Admin: 07/16/25 21:57 Dose: 5 mg Enoxaparin Sodium (Enoxaparin 80 Mg/0.8 Ml Syringe) 80 mg SUBCUT Q12H JOSÉ MIGUEL Last Admin: 07/18/25 06:59 Dose: 80 mg Furosemide (Furosemide 40 Mg Tablet) 40 mg PO QAM JOSÉ MIGUEL Last Admin: 07/18/25 04:34 Dose: 40 mg Gabapentin (Gabapentin 100 Mg Capsule) 100 mg PO TID [facility] Last Admin: 07/18/25 04:33 Dose: 100 mg Glucagon (Glucagon 1 Mg/Ml Kit 1 Ml) 1 mg IM ONCE PRN; Protocol PRN Reason: Adult Acute Hypoglycemia Nursing Prot. Dextrose (D5w) 500 mls @ 0 mls/hr IV ONCE PRN; Protocol PRN Reason: Adult Acute Hypoglycemia Prot Dextrose (D10w) 125 mls @ 750 mls/hr IV PRN PRN; Protocol PRN Reason: Adult Acute Hypoglycemia Nursing Protocol Dextrose (D10w) 250 mls @ 1,000 mls/hr IV PRN PRN; Protocol PRN Reason: Adult Acute Hypoglycemia Nursing Protocol Vancomycin HCl 750 mg/ Sodium (Chloride) 250 mls @ 250 mls/hr IV Q12H [facility] On Hold: 07/18/25 06:44 Last Infusion: 07/18/25 05:56 Dose: Infused Piperacillin Sod/Tazobactam (Sod 3.375 gm/ Sodium Chloride) 50 mls @ 12.5 mls/hr IV Q8H [facility]; Protocol Last Infusion: 07/18/25 08:53 Dose: Infused Sodium Chloride (Sodium Chloride 0.9%) 1,000 mls @ 100 mls/hr IV .Q10H [facility] Last Admin: 07/18/25 05:53 Dose: 100 mls/hr Insulin Human Lispro (Insulin Lispro 100 Unit/1 Ml) 0 unit SUBCUT TIDWM [facility]; Protocol Last Admin: 07/18/25 08:06 Dose: Not Given Magnesium Hydroxide (Magnesium Hydroxide 30 Ml Udc) 30 ml PO DAILY PRN PRN Reason: CONSTIPATION Morphine Sulfate (Morphine 4 Mg/Ml Sdv 1 Ml) 2 mg IVP Q4H PRN PRN Reason: SEVERE PAIN Last Admin: 07/18/25 04:31 Dose: 2 mg Naloxone HCl (Naloxone 0.4 Mg/Ml Sdv) 0.1 mg IVP Q2M PRN PRN Reason: OPIATERV Nitroglycerin (Nitroglycerin 0.4 Mg Sublingual Tablet) 0.4 mg SUBLINGUAL Q5M PRN PRN Reason: CHEST PAIN Ondansetron HCl (Ondansetron 2 Mg/Ml Sdv 2 Ml) 4 mg IVP Q8H PRN PRN Reason: vomiting, or N/V if npo Pantoprazole Sodium (Pantoprazole 40 Mg Sdv) 40 mg IVP Q24H [facility] Last Admin: 07/17/25 16:58 Dose: 40 mg Potassium Chloride (Potassium Chloride Er 20 Meq Tablet) 20 meq PO BID [facility] Last Admin: 07/18/25 04:34 Dose: 20 meq Tamsulosin HCl (Tamsulosin 0.4 Mg Capsule) 0.8 mg PO BEDTIME [facility] Last Admin: 07/17/25 20:56 Dose: 0.8 mg Temazepam (Temazepam 15 Mg Capsule) 15 mg PO BEDTIME PRN PRN Reason: INSOMNIA Vitals/I&O/Wt Last Vital Signs Temp 97.8 F 07/18/25 03:38 Pulse 73 07/18/25 08:16 Resp 16 07/18/25 08:16 BP 135/62 07/18/25 03:38 Pulse Ox 94 07/18/25 08:16 O2 Del Method Nasal Cannula 07/18/25 08:16 O2 Flow Rate 2 07/18/25 08:16 07/17/25 07/18/25 07/18/25 22:59 06:59 14:59 Intake Total 300 / 350 2220 / 2570 170 / 170 Output Total 0 / 1647 300 / 1947 Balance 300 / -1297 1920 / 623 170 / 170 Weight last 48 hrs Weight 192 lb 10.944 oz Weight 188 lb Physical Exam 2 Narrative: GENERAL: The patient is alert and oriented times three. Not in any acute distress. HEENT: No significant pallor, icterus or lymphadenopathy.Oral cavity: There are no mucous membrane lesions. NECK: Trachea appears to be central. No masses noted. No JVD or thyromegaly appreciated. RESPIRATORY: Chest is symmetrical. No intercostals muscle retraction or any accessory muscle activation. There is no chest wall tenderness. Breath sounds are heard bilaterally. No rales or rhonchi heard. No evidence of any consolidation. BREASTS: Deferred. HEART: The heart sounds are normal. No S3 or S4. No significant murmurs. No pericardial rub ABDOMEN: No vessel pulsations or distention. No tenderness. No organomegaly appreciated. Bowel sounds are normally heard. : Deferred. RECTAL: Deferred. LYMPHATIC: No lymphadenopathy noted in the neck. EXTREMITIES: 1+ edema both lower extremities. Left groin has no hematoma bleeding MUSCULOSKELETAL: No acute joint deformities or swelling SKIN: There are no significant rashes or ecchymosis NEUROPSYCHIATRIC: The patient is alert and oriented x3. Appears to be in a good mood. No tremors or rigidity noted. Data 07/18/25 03:29 07/18/25 03: Other Labs: Laboratory Last Values WBC 10.70 10^3/uL (3.29-11.43) 07/18/25 03: RBC 3.09 10^6/uL (3.85-5.65) L 07/18/25 03: Hgb 9.00 g/dL (11.27-16.99) L 07/18/25 03: Hct 28.3 % (37-53) L 07/18/25 03: MCV 91.6 fl (82-101) 07/18/25 03: MCH 29.1 pg (27-33) 07/18/25 03: MCHC 31.8 g/dL (30-55) 07/18/25 03: RDW 13.8 % (12.1-15.1) 07/18/25 03: Plt Count 274 10^3/cmm (157-399) 07/18/25 03: MPV 9.3 fL (7.4-10.4) 07/18/25 03: Neut % (Auto) 75.5 % 07/18/25 03: Lymph % (Auto) 12.1 % 07/18/25 03: [place] % (Auto) 6.4 % 07/18/25 03: Eos % (Auto) 4.7 % 07/18/25 03: Baso % (Auto) 0.7 % 07/18/25 03: Neut # (Auto) 8.09 10^3/uL (1.8-7.7) H 07/18/25 03: Lymph # (Auto) 1.3 10^3/uL (0.8-4.8) 07/18/25 03: [place] # (Auto) 0.7 10^3/uL (0.2-0.9) 07/18/25 03:29 Eos # (Auto) 0.5 10^3/uL (0.0-0.8) 07/18/25 03:29 Baso # (Auto) 0.1 10^3/uL (0.0-0.1) 07/18/25 03:29 Nucleated RBC % (auto) 0 % 07/18/25 03:29 Nucleated RBCs # 0.0 /100WBC 07/18/25 03:29 ESR 34 mm/hr (0-10) H 07/14/25 16:08 PT 14.50 SECONDS (12.1-14.9) 07/17/25 04:16 INR 1.06 (0.8-1.2) 07/17/25 04:16 Sodium 137 mmol/L (136-145) 07/18/25 03:29 Potassium 3.9 mmol/L (3.5-5.1) 07/18/25 03:29 Chloride 104 mmol/L (98-107) 07/18/25 03:29 Carbon Dioxide 22 mmol/L (22-29) 07/18/25 03:29 Anion Gap 14.9 (5-19) 07/18/25 03:29 BUN 13 mg/dL (8-23) 07/18/25 03:29 Creatinine 1.4 mg/dL (0.7-1.2) H 07/18/25 03:29 GFR Calculation Not Reportable 07/18/25 03:29 Glucose 131 mg/dL (65-115) H 07/18/25 03:29 POC Glucose 113 mg/dL (70-110) H 07/18/25 06:42 Estimat Average Glucose 126 07/14/25 18:32 Hemoglobin A1c 6.0 % (4.0-6.0) 07/14/25 18:32 Calculated Osmolality 286 mOsm/kg (285-295) 07/18/25 03:29 Lactic Acid 1.0 mmol/L (0.5-2.2) 07/14/25 16:08 Calcium 8.2 mg/dL (8.5-10.5) L 07/18/25 03:29 Phosphorus 2.2 mg/dL (2.5-4.5) L 07/17/25 04:16 Magnesium 2.3 mg/dL (1.7-2.3) 07/17/25 04:16 Total Bilirubin 0.4 mg/dL (0.15-1.2) 07/17/25 04:16 AST 18 U/L (0-40) 07/17/25 04:16 ALT 8 U/L (0-41) 07/17/25 04:16 Alkaline Phosphatase 90 U/L (40-130) 07/17/25 04:16 C-Reactive Protein 128.6 mg/L (0.0-4.9) H 07/14/25 16:08 NT-Pro-B Natriuret Pep 2015 pg/mL (0-450) H 07/14/25 17:38 Total Protein 6.4 g/dL (6.6-8.7) L 07/17/25 04:16 Albumin 3.4 g/dL (3.5-5.2) L 07/17/25 04:16 Globulin 3.0 g/dL (1.3-4.6) 07/17/25 04:16 Triglycerides 198 mg/dL (0-150) H 07/14/25 18:32 Cholesterol 118 mg/dL (0-200) 07/14/25 18:32 LDL Cholesterol, Calc 51 mg/dL (50-129) 07/14/25 18:32 HDL Cholesterol 27 mg/dL (60-100) L 07/14/25 18:32 LDL/HDL Ratio 1.89 RATIO (0.00-3.22) 07/14/25 18:32 Cholesterol/HDL Ratio 4.37 mg/dL (1.0-5.00) 07/14/25 18:32 TSH 1.08 uIU/mL (0.27-4.20) 07/14/25 18:32 Urine Color Yellow (Yellow) 07/14/25 19:25 Urine Appearance Clear (CLEAR) 07/14/25 19:25 Urine pH 6.5 (5-7) 07/14/25 19:25 Ur Specific [place] 1.020 (1.005-1.030) 07/14/25 19: Urine Protein Trace (Negative) A 07/14/25: Urine Glucose (UA) Negative (Normal) 07/14/25 19: Urine Ketones Negative (Negative) 07/14/25 19:25 Urine Blood Negative (Negative) 07/14/25: Urine Nitrate Negative (Negative) 07/14/25: Urine Bilirubin Negative (Negative) 07/14/25 19:25 Urine Urobilinogen 1.0 mg/dL (Negative) 07/14/25 19:25 Ur Leukocyte Esterase Negative (Negative) 07/14/25 19:25 Amorphous Sediment Not Reportable 07/14/25 19:25 Vancomycin Trough 16.5 ug/mL (10-15) H 07/16/25 15:54 Other data: Peripheral angiogram on 07/17/2025 by Date of procedure: 07/17/25 Pre-procedure diagnosis: Critical limb ischemia Post-procedure diagnosis: same Procedure: Peripheral angiogram was performed Right renal artery mild stenosis Left renal artery patent Distal abdominal aortic aneurysm of moderate size Left and right common iliac artery are aneurysmal Right common iliac is occluded in its distal segment and very calcified Right external iliac is chronically occluded Right internal iliac is occluded Right common femoral constitute in the distal segment but occluded in the proximal segment Right profundofemoral is patent is diffuse luminal irregularity Right SFA is chronically occluded Right popliteal is chronically occluded but reconstituted in the distal and Right tibioperoneal trunk has high-grade stenosis it is a calcified vessel Right anterior tibial appeared to be occluded in the proximal segment Right posterior tibial appeared to be occluded Right peroneal appeared to be occluded 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 Left external iliac has diffuse luminal irregularity without significant stenosis Left internal iliac has luminal irregularity Left common femoral has luminal irregularity without significant stenosis Left profunda has luminal irregularity without significant stenosis Left SFA is chronically occluded in mid segment and reconstitute in the distal segment Left popliteal is patent Left tibioperoneal trunk is patent Left posterior tibial appear to be patent Left anterior tibial and peroneal not well-visualized because of timing out of contrast A&P Assessment and plan 1. Critical limb ischemia of right lower extremity: Status post a peripheral angiogram. Extensive calcification relative complex lesions bilaterally. Considering v surgical revascularization. 2. Diabetic ulcer of other part of right foot associated with type 2 diabetes mellitus, with necrosis of bone: Status post incision of the right foot to bone cortex, clinically seems to be improving 3. Atrial fibrillation with rapid ventricular response: Patient is on amiodarone. I made an EKG to evaluate for any proarrhythmic effect 4. Acute on chronic congestive heart failure, unspecified heart failure type: The heart failure seems to be compensated. 5. Acute exacerbation of chronic obstructive airways disease: Respiratory status seems to be stable at this point. Plan: Overall cardiovascular status seems to be stable. 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
--- NOTE | 2025-07-18 10:10 | XRR_ITS ---
PROCEDURE INFORMATION: Exam: XR Chest Exam date and time: 07/18/2025 10:41 AM Age: 75 years old Clinical indication: Shortness of breath; Prior surgery; Surgery date: 6+ months; Surgery type: Lt lobectomy; Additional info: Increased sob/chest congestion; HX left lobectomy from [facility] 1970 TECHNIQUE: Imaging protocol: Radiologic exam of the chest. Views: 1 view. COMPARISON: CT lung screening [id number] 01/05/2025 1:20 PM FINDINGS: Lungs: Curvilinear bilateral opacities that may reflect emphysematous lung changes. Subpleural reticulations are noted along the left lower lobe. Atelectatic changes are present in the right mid-lateral lung. Pleural spaces: Unremarkable. No pleural effusion or pneumothorax. Heart/Mediastinum: Unremarkable. No cardiomegaly. Vasculature: : Right infrahilar opacity that may represent pulmonary vasculature within the hilar fossa versus a small pulmonary nodule. Bones/joints: Degenerative changes of the thoracic spine. XR/XR chest 1V portable [id number] IMPRESSION: 1. Emphysematous lung changes. 2. Right infrahilar opacity concerning for small nodule versus vascular structure; recommend short-interval follow-up chest CT for further evaluation.
[2025-07-18] MEDS: FUROsemide 10 mg/mL SDV 2mL 20 MG IVP (10:39)
--- NOTE | 2025-07-18 11:34 | P.DS_ITS ---
Discharge Providers Date of Admission: 07/14/25 17:21 Date of Discharge: July 18, 2025 Attending Provider at Admission: Stevie Davila MD Attending Provider at Discharge: Stevie Davila MD Primary Care Provider: MILADIS Leblanc Diagnoses at Discharge Discharge Diagnosis 1. Critical limb ischemia of right lower extremity: 2. 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 Cellulitis and phlegmon around the medial aspect of the stump with no definite abscess collection. - Podiatry consulted - Received IV antibiotics -Had incision of bone cortex right foot 07/15/2025 - Had delayed closure of right foot 07/17/2025 - Overall clinically improved - Will be discharged with close follow-up with Dr. 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 Right common iliac is occluded in its distal segment and very calcified Right external iliac is chronically occluded Right internal iliac is occluded Right common femoral constitute in the distal segment but occluded in the proximal segment Right profundofemoral is patent is diffuse luminal irregularity Right SFA is chronically occluded Right popliteal is chronically occluded but reconstituted in the distal and Right tibioperoneal trunk has high-grade stenosis it is a calcified vessel Right anterior tibial appeared to be occluded in the proximal segment Right posterior tibial appeared to be occluded Right peroneal appeared to be occluded 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 Left external iliac has diffuse luminal irregularity without significant stenosis Left internal iliac has luminal irregularity Left common femoral has luminal irregularity without significant stenosis Left profunda has luminal irregularity without significant stenosis Left SFA is chronically occluded in mid segment and reconstitute in the distal segment Left popliteal is patent Left tibioperoneal trunk is patent Left posterior tibial appear to be patent Left anterior tibial and peroneal not well-visualized because of timing out of contrast Plan: Given the anatomy and pathology and highly calcified nature of the patient surgical consultation and referral recommended - He will be discharged on aspirin, statin, Eliquis - Follow-up with vascular surgery as outpatient Upon discharge patient is requiring 1 L oxygen, will discharge on oxygen therapy For fluid overload, diastolic CHF, received IV diuresis, tells him, overall clinically improved Physical Exam Const: COMMON NORMALS: no acute distress and patient oriented x3 Resp: COMMON NORMALS: normal respiratory effort, No retractions, No use of accessory muscles and clear to auscultation bilaterally AUSCULTATION: clear to auscultation bilaterally Cardio: COMMON NORMALS: regular rate, regular rhythm, S1 normal heart sound present and S2 normal heart sound present RATE: regular rate RHYTHM: regular rhythm HEART SOUNDS: S1 normal heart sound present and S2 normal heart sound present GI: COMMON NORMALS: Normal to inspection, nondistended, normoactive bowel sounds present and non-tender Extremity: COMMON NORMALS: no pedal edema NARRATIVE EXTREMITY EXAM: Right foot, wrapped, able to wiggle his toes, good cap refill Left foot, DP PT pulses palpable Neuro: COMMON NORMALS: patient oriented x3, CN's II-XII intact bilaterally and moves all extremities Psych: COMMON NORMALS: mental status grossly normal Discharge Data Studies Completed and Pending Completed Studies During Hospitalization Category Date Time Status CT foot RT wo con* [id number] Stat Cat Scan 07/14/25 16:04 Completed XR foot RT min 3V* [id number] Stat Exams 07/14/25 15:36 [place] [id number] Stat Ultrasound 07/15/25 17:17 Completed Pending at discharge Category Date Time Status INCOME TAX RETURN PREPARER request for service Routine Exams 07/17/25 07:00 Taken XR chest 1V portable [id number] Stat Exams 07/18/25 10:10 Taken Blood Culture Stat Lab 07/14/25 16:16 Results Blood Culture Stat Lab 07/14/25 17:38 Results Vancomycin Trough Timed Lab 07/18/25 16:00 Ordered Radiology Impressions Foot X-Ray 07/14/25 15:36 IMPRESSION: Status post transmetatarsal amputation with presence of wound on the medial aspect of the stump. No cortical erosion is noted. 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 Cellulitis and phlegmon around the medial aspect of the stump with no definite abscess collection. Duplex Scan Lower Extremity Artery 07/15/25 17:17 IMPRESSION: 1. Occluded right SFA with reconstitution at popliteal artery. Infrapopliteal vessels patent with monophasic waveforms. 2. Occluded left SFA with reconstitution at popliteal artery. Visualized infrapopliteal vessels patent with monophasic waveforms. Laboratory Results WBC 10.70 10^3/uL (3.29-11.43) 07/18/25 03:29 RBC 3.09 10^6/uL (3.85-5.65) L 07/18/25 03:29 Hgb 9.00 g/dL (11.27-16.99) L 07/18/25 03:29 Hct 28.3 % (37-53) L 07/18/25 03:29 MCV 91.6 fl (82-101) 07/18/25 03:29 MCH 29.1 pg (27-33) 07/18/25 03:29 MCHC 31.8 g/dL (30-55) 07/18/25 03:29 RDW 13.8 % (12.1-15.1) 07/18/25 03:29 Plt Count 274 10^3/cmm (157-399) 07/18/25 03:29 MPV 9.3 fL (7.4-10.4) 07/18/25 03:29 Neut % (Auto) 75.5 % 07/18/25 03:29 Lymph % (Auto) 12.1 % 07/18/25 03:29 Woodson % (Auto) 6.4 % 07/18/25 03:29 Eos % (Auto) 4.7 % 07/18/25 03:29 Baso % (Auto) 0.7 % 07/18/25 03:29 Neut # (Auto) 8.09 10^3/uL (1.8-7.7) H 07/18/25 03:29 Lymph # (Auto) 1.3 10^3/uL (0.8-4.8) 07/18/25 03:29 Woodson # (Auto) 0.7 10^3/uL (0.2-0.9) 07/18/25 03:29 Eos # (Auto) 0.5 10^3/uL (0.0-0.8) 07/18/25 03:29 Baso # (Auto) 0.1 10^3/uL (0.0-0.1) 07/18/25 03:29 Nucleated RBC % (auto) 0 % 07/18/25 03: Nucleated RBCs # 0.0 /100WBC 07/18/25 03:29 ESR 34 mm/hr (0-10) H 07/14/25 16:08 PT 14.50 SECONDS (12.1-14.9) 07/17/25 04:16 INR 1.06 (0.8-1.2) 07/17/25 04:16 Sodium 137 mmol/L (136-145) 07/18/25 03:29 Potassium 3.9 mmol/L (3.5-5.1) 07/18/25 03:29 Chloride 104 mmol/L (98-107) 07/18/25 03:29 Carbon Dioxide 22 mmol/L (22-29) 07/18/25 03:29 Anion Gap 14.9 (5-19) 07/18/25 03:29 BUN 13 mg/dL (8-23) 07/18/25 03:29 Creatinine 1.4 mg/dL (0.7-1.2) H 07/18/25 03:29 GFR Calculation Not Reportable 07/18/25 03:29 Glucose 131 mg/dL (65-115) H 07/18/25 03:29 POC Glucose 132 mg/dL (70-110) H 07/18/25 10:14 Estimat Average Glucose 126 07/14/25 18:32 Hemoglobin A1c 6.0 % (4.0-6.0) 07/14/25 18:32 Calculated Osmolality 286 mOsm/kg (285-295) 07/18/25 03:29 Lactic Acid 1.0 mmol/L (0.5-2.2) 07/14/25 16:08 Calcium 8.2 mg/dL (8.5-10.5) L 07/18/25 03:29 Phosphorus 2.2 mg/dL (2.5-4.5) L 07/17/25 04:16 Magnesium 2.3 mg/dL (1.7-2.3) 07/17/25 04:16 Total Bilirubin 0.4 mg/dL (0.15-1.2) 07/17/25 04:16 AST 18 U/L (0-40) 07/17/25 04:16 ALT 8 U/L (0-41) 07/17/25 04:16 Alkaline Phosphatase 90 U/L (40-130) 07/17/25 04:16 C-Reactive Protein 128.6 mg/L (0.0-4.9) H 07/14/25 16:08 NT-Pro-B Natriuret Pep 2015 pg/mL (0-450) H 07/14/25 17:38 Total Protein 6.4 g/dL (6.6-8.7) L 07/17/25 04:16 Albumin 3.4 g/dL (3.5-5.2) L 07/17/25 04:16 Globulin 3.0 g/dL (1.3-4.6) 07/17/25 04:16 Triglycerides 198 mg/dL (0-150) H 07/14/25 18:32 Cholesterol 118 mg/dL (0-200) 07/14/25 18:32 LDL Cholesterol, Calc 51 mg/dL (50-129) 07/14/25 18:32 HDL Cholesterol 27 mg/dL (60-100) L 07/14/25 18:32 LDL/HDL Ratio 1.89 RATIO (0.00-3.22) 07/14/25 18:32 Cholesterol/HDL Ratio 4.37 mg/dL (1.0-5.00) 07/14/25 18:32 TSH 1.08 uIU/mL (0.27-4.20) 07/14/25 18:32 Urine Color Yellow (Yellow) 07/14/25 19:25 Urine Appearance Clear (CLEAR) 07/14/25 19:25 Urine pH 6.5 (5-7) 07/14/25 19:25 Ur Specific Beaufort 1.020 (1.005-1.030) 07/14/25 19:25 Urine Protein Trace (Negative) A 07/14/25 19:25 Urine Glucose (UA) Negative (Normal) 07/14/25 19: Urine Ketones Negative (Negative) 07/14/25 19:25 Urine Blood Negative (Negative) 07/14/25 19: Urine Nitrate Negative (Negative) 07/14/25 19:25 Urine Bilirubin Negative (Negative) 07/14/25:25 Urine Urobilinogen 1.0 mg/dL (Negative) 07/14/25 19: Ur Leukocyte Esterase Negative (Negative) 07/14/25: Amorphous Sediment Not Reportable 07/14/25 19: Vancomycin Trough 16.5 ug/mL (10-15) H 07/16/25 15:54 Vitals Last Vital Signs Temp 97.8 F 07/18/25 03:38 Pulse 87 07/18/25 11:15 Resp 16 07/18/25 11:11 BP 135/62 07/18/25 03:38 Pulse Ox 88 L 07/18/25 11:12 O2 Del Method Nasal Cannula 07/18/25 11:11 O2 Flow Rate 2 07/18/25 11:12 Discharge Plan Discharge Patient Disposition: Home Condition: Stable Prescriptions: New hydrocodone-acetaminophen 10-325 mg Tablet 1 tab PO Q6H PRN (Reason: Moderate Pain) 5 Days Qty: 20 0RF doxycycline hyclate 100 mg tablet 100 mg PO BID 7 Days Qty: 14 0RF aspirin 81 mg Tablet,Delayed Release (Dr/Ec) 81 mg PO DAILY 30 Days Qty: 30 0RF Continued potassium chloride 20 mEq tablet extended release 20 meq PO BID Qty: 60 2RF furosemide 40 mg tablet 40 mg PO QAM diclofenac sodium [Voltaren Arthritis Pain] 1 % gel 2 g topical QID 30 Days Qty: 150 4RF Rx Instructions: apply to single elbow, wrist or hand; for hand includes palm/fingers/back of hand Eliquis 5 mg tablet 5 mg PO BID Breztri Aerosphere 160-9-4.8 mcg/actuation HFA aerosol inhaler 2 inh inhalation BID Qty: 10.7 12RF acetaminophen 500 mg Tablet 1,000 mg PO Q6H PRN (Reason: Pain) 14 Days Qty: 20 0RF tamsulosin 0.4 mg Capsule 0.8 mg PO BEDTIME albuterol sulfate 90 mcg/actuation HFA aerosol inhaler 2 puff inhalation QID PRN (Reason: shortness of breath or wheezing) nitroglycerin 0.4 mg tablet, sublingual 0.4 mg sublingual Q5M PRN (Reason: chest pain) Qty: 25 0RF Rx Instructions: do not exceed 3 doses per episode gabapentin 100 mg Capsule 100 mg PO TID famotidine [Pepcid AC] 20 mg Tablet 20 mg PO BID amiodarone [Pacerone] 200 mg tablet 200 mg PO DAILY ipratropium-albuterol 0.5 mg-3 mg(2.5 mg base)/3 mL Solution For Nebulization 3 ml INHALATION QID PRN (Reason: Shortness Of Breath) temazepam 15 mg capsule 15 mg PO BEDTIME PRN (Reason: Sleep) metoprolol tartrate 25 mg tablet 25 mg PO BID baclofen 10 mg Tablet 10 mg PO BID PRN (Reason: Pain) cholecalciferol (vitamin D3) [Vitamin D3] 10 mcg (400 unit) Tablet 10 mcg PO DAILY quetiapine 50 mg Tablet 50 mg PO BEDTIME rosuvastatin 10 mg Capsule, Sprinkle 10 mg PO QPM No Action (DME) Cam boot to right See Rx Instructions .Route .MEDSUPPLY Qty: 1 0RF Rx Instructions: As directed (DME) Diabetic Shoes with toe filler to right See Rx Instructions .Route .MEDSUPPLY Qty: 1 0RF Rx Instructions: As directed By [facility] (DME) Diabetic shoes See Rx Instructions .ROUTE .MEDSUPPLY Qty: 1 0RF Rx Instructions: With 3 pairs of inserts, toe filler to the right (DME) glucometer testing kit See Rx Instructions .Route .MEDSUPPLY Qty: 1 0RF Rx Instructions: As directed (DME) lancets Misc See Rx Instructions .Route Qty: 200 0RF Rx Instructions: check bs tid (DME) strips See Rx Instructions .Route .MEDSUPPLY Qty: 100 0RF Rx Instructions: check bs tid Other Ambulatory Orders: DME: Oxygen (Order) Location: None Selected Ordered By: Stevie Davila Referrals: Zachary Melendez DPM [Physician, Podiatry] - 4-7 days Referral Note: We have notified your physician's clinic of the need for a follow-up appointment to be scheduled. If you have not heard from them within the next 2 business days, please call them directly. Alexys Alcantara MD [Physician, Cardiology] - 1 week Referral Note: We have notified your physician's clinic of the need for a follow-up appointment to be scheduled. If you have not heard from them within the next 2 business days, please call them directly. Munir Gan MD [Physician, Cardiology] - 08/13/25 3:45 pm Laureen Krishna FNP [Primary Care Provider, Nurse Practitioner] Referral Note: Patient does not have a PCP, so the MA will not schedule an appt until PT calls after discharge Jaylen Casanova MD [Occupational Therapist, Vascular Surgery] - 1-3 days Referral Note: Patient needs to have Bypass surgery, please call the office on Sunday to schedule an appointment as soon as possible Discharge Diet: Cardiac Discharge Activity: Resume usual activity Patient Instructions: Doxycycline (By mouth), Hydrocodone/Acetaminophen (By mouth), Aspirin (By mouth), Acute Wound Care (DC), Peripheral Vascular Angioplasty (DC), Opioid Safety, Post Anesthesia Care, Patient Portal & Corky Instructions Activity Restrictions/Additional Instructions: - Pain control, please use hydrocodone sparingly, for pain - Dr. Melendez will monitor dressing changes -Follow-up with Dr. Melendez - Please monitor your blood sugars closely -Please monitor your blood sugars closely -Monitor your blood sugars 3 times daily as after meals -Please record your blood sugars, and a blood sugar log -If your blood sugar is greater than 500 go to the emergency room -If your blood sugar is less than 60 or at anytime you feel lightheaded or dizzy or diaphoretic or have chest palpitations check your blood sugar, and eat a hard candy or drink orange juice and go immediately to the emergency room -Remember hypoglycemia kills, so if his blood sugar is less than 60 we have to increase it by taking in a sugary meal such as a hard candy or orange juice and go to the emergency room -If you have any questions please call us where here to help Discharge Attestations Time Spent in Discharge Care*: greater than 30 min Quality Metrics Clinical Quality Measures [ No reported AMI, CVA or VTE this stay] Coding Level of Care Code 93222 Total time (in minutes) for Discharge: 45 Diagnoses Critical limb ischemia of right lower extremity I70.221 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
--- NOTE | 2025-07-18 13:12 | PC.NURSE ---
[facility] oxygen [facility]. Case mgt alerted me that the HOME can't provide oxygen since pt has to go through his [facility]. Pt was informed that he has to wait for the [facility] to call us back and give us answer when they can deliver it here. Pt stated, No. I am not going to wait for that. I will be okay. My sister has an oxygen at home that i can use. Educated pt that he needs a portable tank to get through his house today,pt stated. I am going home and i am not going to wait for that. Pt neighbor's are also here to pick him up and he is getting anxious to get home since he said he does not have a ride for this afternoon since his sister is still in a hospital and she is regularly her transport. Notified hospitalist of the issue.
--- NOTE | 2025-07-18 13:18 | PC.NURSE ---
Discharge Note Patient discharged to home via wheelchair accompanied by neighbor's. Discharge instructions reviewed with patient and/or retention representative. Mobile pharmacy medications and/or prescriptions provided. Belongings/home medications returned.
== END 2025-07-18 13:23 | disposition home or self-care (01) | DRG 617 ==
LOC: ER 16:50 → MEDSURG 17:22 → CSU 07-17 08:36
PROVIDERS: Internal Medicine Cardiovascular Disease; Podiatrist Foot & Ankle Surgery; Admitting Provider Family Medicine; Emergency Provider Emergency Medicine; PCP Nurse Practitioner; Visit Provider Family Medicine
PROC: 0Y6P0Z0 Detachment at Right 1st Toe, Complete, Open Approach (ICD-10-PCS; principal; 2025-07-15 12:00)
PROC: B41DYZZ Fluoroscopy of Aorta and Bilateral Lower Extremity Arteries using Other Contrast (ICD-10-PCS; principal; 2025-07-17 07:00)
PROC: 0JQQ0ZZ Repair Right Foot Subcutaneous Tissue and Fascia, Open Approach (ICD-10-PCS; CPT 13160; principal; 2025-07-17 12:05)
DX: E11.69 Type 2 diabetes mellitus with other specified complication (principal); I50.30 Unspecified diastolic (congestive) heart failure; M86.9 Osteomyelitis, unspecified; L03.115 Cellulitis of right lower limb; E11.621 Type 2 diabetes mellitus with foot ulcer; L97.514 Non-pressure 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; E11.42 Type 2 diabetes mellitus with diabetic polyneuropathy; E11.51 Type 2 diabetes mellitus with diabetic peripheral angiopathy without gangrene; I48.91 Unspecified atrial fibrillation; I11.0 Hypertensive heart disease with heart failure; E78.5 Hyperlipidemia, unspecified; F17.210 Nicotine dependence, cigarettes, uncomplicated; J44.9 Chronic obstructive pulmonary disease, unspecified; I82.413 Acute embolism and thrombosis of femoral vein, bilateral; Z79.01 Long term (current) use of anticoagulants; Z79.82 Long term (current) use of aspirin; Z79.4 Long term (current) use of insulin; Z79.51 Long term (current) use of inhaled steroids; Z86.16 Personal history of COVID-19; Z89.421 Acquired absence of other right toe(s)
CPT/HCPCS: 36415; 36416; 71045; 73630; 73700; 75625; 75716; 80048; 80053; 80061; 80202; 81003; 82962; 83036; 83605; 83735; 83880; 84100; 84443; 85025; 85610; 85651; 86140; 87040; 87070; 87075; 87077; 87186; 87205; 93925; 94640; 94664; 94760; 96365; 96372; 96375; 99152; 99153; 99285; C1760; C1769; C1887; G0269; J0692; J1644; J1650; J1815; J1938; J2250; J2270; J2470; J2543; J2704; J3010; J3372; J3373; J3490; J7030; J7050; J9999; Q0163; Q9967

== ENCOUNTER → 2025-07-21 09:36 | Outpatient (BNVA) | payer OTHER, SELFPAY | PROVIDERS: PCP Nurse Practitioner; Visit Provider Podiatrist Foot & Ankle Surgery | DX: E11.621 Type 2 diabetes mellitus with foot ulcer (principal); L97.512 Non-pressure chronic ulcer of other part of right foot with fat layer exposed; Z89.431 Acquired absence of right foot; M24.574 Contracture, right foot | CPT/HCPCS: 99213 ==

== ENCOUNTER → 2025-07-27 09:50 | Outpatient (BNVA) | payer OTHER, SELFPAY | PROVIDERS: PCP Nurse Practitioner; Visit Provider Podiatrist Foot & Ankle Surgery | DX: I73.9 Peripheral vascular disease, unspecified (principal); L97.514 Non-pressure 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; T81.31XA Disruption of external operation (surgical) wound, not elsewhere classified, initial encounter; Z98.890 Other specified postprocedural states; Y83.8 Other surgical procedures as the cause of abnormal reaction of the patient, or of later complication, without mention of misadventure at the time of the procedure | CPT/HCPCS: 99213 ==

== ENCOUNTER → 2025-08-03 10:04 | Outpatient (BNVA) | payer OTHER, SELFPAY | PROVIDERS: PCP Nurse Practitioner; Visit Provider Podiatrist Foot & Ankle Surgery | DX: Z98.890 Other specified postprocedural states (principal); S91.301A Unspecified open wound, right foot, initial encounter; T81.31XA Disruption of external operation (surgical) wound, not elsewhere classified, initial encounter | CPT/HCPCS: 87070; 87075; 87205 ==

== ENCOUNTER → 2025-08-05 10:17 | Outpatient (BNVA) | payer OTHER, SELFPAY | PROVIDERS: PCP Nurse Practitioner; Visit Provider Podiatrist Foot & Ankle Surgery | DX: I73.9 Peripheral vascular disease, unspecified (principal); L97.514 Non-pressure 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; T81.31XA Disruption of external operation (surgical) wound, not elsewhere classified, initial encounter; Y83.8 Other surgical procedures as the cause of abnormal reaction of the patient, or of later complication, without mention of misadventure at the time of the procedure | CPT/HCPCS: 99213 ==

== ENCOUNTER → 2025-08-11 14:01 | Outpatient (BNVA) | payer OTHER, SELFPAY | PROVIDERS: PCP Nurse Practitioner; Visit Provider Podiatrist Foot & Ankle Surgery | DX: Z98.890 Other specified postprocedural states (principal); I73.9 Peripheral vascular disease, unspecified; L97.514 Non-pressure 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; T81.31XA Disruption of external operation (surgical) wound, not elsewhere classified, initial encounter; Y83.8 Other surgical procedures as the cause of abnormal reaction of the patient, or of later complication, without mention of misadventure at the time of the procedure | CPT/HCPCS: 99024; 99213 ==

== ENCOUNTER → 2025-08-25 14:16 | Outpatient (BNVA) | payer OTHER, SELFPAY | PROVIDERS: PCP Nurse Practitioner; Visit Provider Thoracic Surgery (Cardiothoracic Vascular Surgery) | DX: I96 Gangrene, not elsewhere classified (principal); L89.612 Pressure ulcer of right heel, stage 2; L89.892 Pressure ulcer of other site, stage 2; I87.2 Venous insufficiency (chronic) (peripheral); T81.31XA Disruption of external operation (surgical) wound, not elsewhere classified, initial encounter | CPT/HCPCS: 11043; 97597; 97598; 99203 ==

== ENCOUNTER → 2025-09-01 14:38 | Outpatient (BNVA) | payer OTHER, SELFPAY | PROVIDERS: PCP Nurse Practitioner; Visit Provider Thoracic Surgery (Cardiothoracic Vascular Surgery) | DX: I96 Gangrene, not elsewhere classified (principal); L89.612 Pressure ulcer of right heel, stage 2; L89.892 Pressure ulcer of other site, stage 2; I87.2 Venous insufficiency (chronic) (peripheral); L97.516 Non-pressure chronic ulcer of other part of right foot with bone involvement without evidence of necrosis | CPT/HCPCS: 11042; 97597; 97598; A6250 ==

== ENCOUNTER → 2025-09-14 10:38 | Outpatient (BNVA) | payer OTHER, SELFPAY | PROVIDERS: PCP Nurse Practitioner; Visit Provider Thoracic Surgery (Cardiothoracic Vascular Surgery) | DX: I96 Gangrene, not elsewhere classified (principal); L89.612 Pressure ulcer of right heel, stage 2; L89.892 Pressure ulcer of other site, stage 2; I87.2 Venous insufficiency (chronic) (peripheral); L97.513 Non-pressure chronic ulcer of other part of right foot with necrosis of muscle | CPT/HCPCS: 11043; 97597; 97598; A6237; A6250 ==

== ENCOUNTER → 2025-09-16 14:19 | Outpatient (BNVA) | payer OTHER, SELFPAY | PROVIDERS: PCP Nurse Practitioner; Visit Provider Thoracic Surgery (Cardiothoracic Vascular Surgery) | DX: L89.612 Pressure ulcer of right heel, stage 2 (principal); I87.2 Venous insufficiency (chronic) (peripheral); L97.511 Non-pressure chronic ulcer of other part of right foot limited to breakdown of skin; L89.892 Pressure ulcer of other site, stage 2; Z98.890 Other specified postprocedural states; I70.221 Atherosclerosis of native arteries of extremities with rest pain, right leg | CPT/HCPCS: 97606; 99213; A6237; A6250 ==

== ENCOUNTER → 2025-09-18 14:07 | Outpatient (BNVA) | payer OTHER, SELFPAY | PROVIDERS: PCP Nurse Practitioner; Visit Provider Podiatrist Foot & Ankle Surgery | DX: E11.621 Type 2 diabetes mellitus with foot ulcer (principal); L97.513 Non-pressure chronic ulcer of other part of right foot with necrosis of muscle; E11.42 Type 2 diabetes mellitus with diabetic polyneuropathy; L03.115 Cellulitis of right lower limb | CPT/HCPCS: 99214 ==

== ENCOUNTER 2025-09-20 10:37 | Inpatient (IN) | payer OTHER, SELFPAY ==
[2025-09-20] VITALS (19 sets, daily range): BP systolic 92–165; BP diastolic 50–88; PULSE 57–90; RESP 16–21; TEMP 36.1–37; O2SAT 92–99; BMI 21.8
--- OUTSIDE RECORDS SUMMARY | 2025-09-20 10:47 | XMS_ITS | Encounter Summary ---
Author Organization [employer] Address [address] [place] [address] Care Team Providers Care Dessert Cup Machine Feeder Name Role Phone Unavailable Primary Care Provider Unavailabl e Encounter Details Date Type Department Care Team (Late st Contact Info) Description 09/15/2025 External Device Data [place] ABSTRACTION Provider, Abstract NO ADDRESS ON FILE Social History Tobacco Use Types Packs/Day Years Used Date Smoking Tobacco: Every Day Cigarettes Smokeless Tobacco: Never Alcohol Use Standard Drinks/Week Comments Not Currently 0 (1 standard drink = 0.6 oz pur e alcohol) Food Insecurity Answer Date Recorded Do you find you are eating l ess than you should because you can t pay for food? No 08/12/2025 Transportation Needs Answer Date Record ed Have you gone without health care because you didn t have a way to get there? Or worry about transportation for future doctor visits, sheepskin pickler medication, etc.? No 2024 Housing Stability Answer Date Recorded Do you worry you won t have a steady place to sleep or struggle to pay rent or mortgage? No 08/12/2025 Utility Needs Answer Date Recorded Do you have difficulty payin g for utility costs (electric, water or gas bills)? No 08/12/2025 Medication Needs Answer Date Recorded Have you skipped taking medi cation due to cost or worry you can t afford new medications? No 08/12/2025 Feeling Safe Answer Date Recorded Are you in a relationship wi th someone who hurts you emotionally and/or physically? No 08/12/2025 Food Insecurity Answer Date Recorded Patient needs follow up regardin 08/13/2025 Transportation Needs Answer Date Record ed Patient needs follow up regardin 08/13/2025 Utility Needs Answer Date Recorded Patient needs follow up regardin 08/13/2025 Sex and Gender Information Value Date Recorded Sex Assigned at Not on file Legal Sex Male 7:21 AM MAINTENANCE ASSOCIATE Gender Identity Not on file Sexual Orientation Not on file documented as of this encounter Plan of Treatment Upcoming Encounters Date Type Department Care Team (Late st Contact Info) Description 09/30/2025 1:30 PM MAINTENANCE ASSOCIATE Ancillary Procedure [facility] [place] [address] [place] [address] [place] [id number] 09/30/2025 2:30 PM MAINTENANCE ASSOCIATE Office Visit [facility] Vascular Surgery [address] [address] Alex Desir MD [address] [address] documented as of this encounter Visit Diagnoses Not on filedocumented in this encounter
--- OUTSIDE RECORDS SUMMARY | 2025-09-20 10:47 | XMS_ITS | Encounter Summary ---
Author Organization [employer] Address [address] [place] [address] Care Team Providers Care Furniture Removalist'S Assistant Name Role Phone Unavailable Primary Care Provider [...] worry about transportation for future doctor visits, pepper picker medication, etc.? No 2024 Housing Stability Answer [...] on file Legal Sex Male 7:21 AM PROVIDER ENROLLMENT SPECIALIST Gender Identity Not on file Sexual Orientation Not on file documented as of this encounter Plan of Treatment Upcoming Encounters Date Type Department Care Team (Late st Contact Info) Description 09/30/2025 1:30 PM PROVIDER ENROLLMENT SPECIALIST Ancillary Procedure [facility] [place] [address] [place] [address] [place] [id number] 09/30/2025 2:30 PM PROVIDER ENROLLMENT SPECIALIST Office Visit [facility] Vascular Surgery [address] [address] Alex Desir MD [address] [address] documented as of this encounter Visit Diagnoses Not on filedocumented in this encounter
--- OUTSIDE RECORDS SUMMARY | 2025-09-20 10:47 | XMS_ITS | Encounter Summary ---
Author Organization [facility] Address [address] [place] [address] Phone Care Team Providers Care Senior Quantity Surveyor Name Role Phone Leatha Winslow Primary Care Provider [phone] Encounter Details Date Type Department Care Team (Late st Contact Info) Description 12/19/2022 Orders Only [facility] [address] [place] [address] Acute kidney failure, not otherwise [...] (HCC) documented in this encounter Care Teams Senior Quantity Surveyor Relationship Specialty Start Date End Date [facility] [address] [place] [id number] PCP - General 01/26/23 documented as of this encounter
--- OUTSIDE RECORDS SUMMARY | 2025-09-20 10:47 | XMS_ITS | Clinical Summary ---
Author Organization [facility] iew Address [address] [facility] [address] [place] [address] Phone Care Team Providers Care Marketing Administrator Name Role Phone Unavailable Primary Care Provider Unavailabl e Allergies Active Allergy Reactions Criticality Noted Date Comments Codeine Dizziness,Nausea and Vomiting Medium 2022 Medications FLUTICASONE PROPIONATE INHALATION Take by inhalation. Active potassium chloride (KLOR-CON) 20 mEq Extended Release tablet Take 20 mEq by mouth 2 times daily. Active apixaban (Eliquis) 5 mg tablet [...] mg tablet Take 10 mg by mouth every 12 hours as needed. Active gabapentin (NEURONTIN) 100 mg capsule Take [...] route see administration instructions. 07/12/20 21 Active albuterol sulfate HFA 90 mcg/actuation aerosol inhaler Take 2 Puffs by inhalation every 6 hours as needed for Shortness of Breath or Wheezing. 25.5 Gram 3 01/14/20 25 Active rosuvastatin (CRESTOR) 20 mg tablet Take 10 mg by mouth. 03/16/20 25 Active QUEtiapine (SEROquel XR) 50 mg Extended Release 24 hour tablet Take 50 mg by mouth. 12/19/19 25 Active metoprolol tartrate (LOPRESSOR) 50 mg tablet Take 25 mg by mouth 2 times daily. 12/19/19 25 Active aspirin (ECOTRIN EC) 81 mg Tablet, Delayed Release (E.C.) Take 1 Tablet by mouth daily. 07/18/20 25 Active amiodarone (Pacerone) 200 mg tablet Take 200 mg by mouth. 12/19/19 25 Active thiamine (VITAMIN B-1) 100 mg tablet Take 1 Tablet by mouth daily. Active oxyCODONE (ROXICODONE INTENSOL) 20 mg/mL Concentrate Take 5 mg by mouth 3 times daily as needed for Pain, Severe. Active tiZANidine (ZANAFLEX) 2 mg Tablet Take 2 mg by mouth every 8 hours as needed for Spasm. Active HYDROcodone-acet aminophen (NORCO) 5-325 mg tabletIndication s:Open wound of right foot, initial encounter Take 1 Tablet by mouth every 4 hours as needed for Pain, Moderate. Max Daily Amount: 6 Tablets 30 Tablet 08/21/20 25 Active naloxone (NARCAN) 4 mg/spray [place], Non-Aerosol EMERGENCY USE ONLY: Administer 1 spray (4 mg) in one nostril one time. May repeat in alternating nostrils every 2-3 min until responsive or EMS arrives. 2 Each 3 08/21/20 25 Active Active Problems Problem Noted Date Diagnosed Date Protein-calorie malnutrition, moderate Decubitus ulcer of heel, right, unstageable 07/17 Open wound of right foot 08/12/2025 Peripheral vascular disease 08/12/2025 Encounter for Ash catheter removal 12/01/2024 Chronic obstructive pulmonary disease 03/26/2023 Cigarette nicotine dependence in remission 03/26 Encounters Date Type Department Care Team Description 09/15/2025 External Device Data STL ABSTRACTION Provider, Abstract 09/15/2025 External Device Data [facility] ABSTRACTION Provider, Abstract 09/08/2025 2:30 PM RECREATIONAL COUNSELOR Office Visit [facility] Vascular Surgery [address] [place] [phone] PAD (peripheral artery disease) (Primary Dx); Encounter for management of wound VAC; Presence of surgical incision 09/07/2025 Telephone [facility] Vascular Surgery [address] [phone] Alex Desir MD Question 09/01/2025 External Device Data STL ABSTRACTION Provider, Abstract 08/21/2025 Orders Only [facility] Vascular Surgery [address] [phone] Alex Desir MD PAD (peripheral artery disease) (Primary Dx) 08/19/2025 External Device Data STL ABSTRACTION Provider, Abstract 08/19/2025 Telephone [facility] V[facility] Surgery [address] [phone] Alex Desir MD Question 08/18/2025 External Device Data STL ABSTRACTION Provider, Abstract 08/17/2025 10:52 AM RECREATIONAL COUNSELOR Anesthesia Event [facility] Operating Room [facility] [place] [address] Ronald Collins MD Dickinson, Taylor R (Student), RN 08/17/2025 9:36 AM RECREATIONAL COUNSELOR - 08/17/2025 1:23 PM RECREATIONAL COUNSELOR Surgery [facility] Operating Room [facility] [place] [address] Alex Desir MD FEMORAL POPLITEAL BYPASS GRAFT 08/13/2025 2:47 PM CDT - 08/13/2025 4:06 PM CDT Surgery [facility] Operating Room [address] [place] [address] Alex Desir MD FEMORAL ANGIOGRAPHY 08/13/2025 8:56 AM CDT Anesthesia Event [facility] Operating Room [address] [place] [phone] Stephen Red MD Lin, Scott Y, AA-C 08/13/2025 Travel 08/12/2025 4:55 PM CDT - 08/21/2025 4:26 PM RECREATIONAL COUNSELOR Hospital Encounter [facility] 3B Surgical [address] [place] [phone] Angelique Bustamante MD Phelps, Jamie, MD Kaur, Harinderjeet, MD [place], Anthony Charles, Open wound of right foot Discharge Disposition: Home or Self Care 08/12/2025 2:15 PM CDT Office Visit [facility] Vascular Surgery [address] [phone] Alex Desir MD PAD (peripheral artery disease) (Primary Dx) 08/11/2025 External Device Data STL ABSTRACTION Provider, Abstract 08/07/2025 Telephone [facility] Lab and Vein [facility]- [address] [phone] Alex Desir MD Referral 08/07/2025 Orders Only [facility]- [address] [phone] Stevie Davila MD 08/04/2025 Abstract [facility] Surgery [address] [phone] Provider, Abstract 07/21/2025 External Device Data STL ABSTRACTION Provider, Abstract from Last 3 Months Social History Tobacco Use Types Packs/Day Years Used Date Smoking Tobacco: Every Day Cigarettes Smokeless Tobacco: Never Tobacco Cessation:Ready to Q uit: Not Asked; Counseling Given: Not Answered Alcohol Use Standard Drinks/Week [...] worry about transportation for future doctor visits, 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 No 2024 Housing Stability [...] on file Legal Sex Male 7:21 AM RECREATIONAL COUNSELOR Gender Identity Not on file Sexual Orientation Not on file Last Filed Vital Signs Vital Sign Reading Time Taken Comments Blood Pressure 117/60 08/21/2025 3:57 PM RECREATIONAL COUNSELOR Pulse 67 08/21/2025 3:57 PM RECREATIONAL COUNSELOR Temperature 36.9 C (98.5 F) 08/21/2025 3:57 PM RECREATIONAL COUNSELOR Respiratory Rate 18 08/21/2025 7:49 AM RECREATIONAL COUNSELOR Oxygen Saturation 98% 08/21/2025 3:57 PM RECREATIONAL COUNSELOR Inhaled Oxygen Concentration - - Weight 81.8 kg (180 lb 5.4 oz) 08/21/2025 4:25 A M RECREATIONAL COUNSELOR Height 188 cm (6' 2 ) 08/12/2025 7:50 PM CDT Body Mass Index 23.15 08/12/2025 7:50 PM CDT Plan of Treatment Upcoming Encounters Date Type Department Care Team (Late st Contact Info) Description 09/30/2025 1:30 PM RECREATIONAL COUNSELOR Ancillary Procedure [facility] Lab and [facility]- [place] [address] [place] [phone] 09/30/2025 2:30 PM RECREATIONAL COUNSELOR Office Visit [facility] Vascular Surgery [address] [place] [address] Alex Desir MD [address] [place] [address] Health Maintenance Due Date Last Done Comments FIT-DNA Q 3 years 1995 FIT/FOBT Q 1 year 1995 Flex Sig/CT Colonography Q 5 years 1995 Abdominal Aortic Aneurysm (A AA) Screening 2015 INFLUENZA VACCINE (#1) 2025 , 09/03/2023, 10/23/2019, Additional history exists COLORECTAL SCREENING 05/18/2025 05/18/2015 Colorectal Cancer Screening 05/18/2025 RSV VACCINE (60+ or ) (1 - 1-dose 75+ series) 2025 DTAP/TDAP/TD VACCINES (3 - T d or Tdap) 09/03/2033 09/03/2023, 07/07/2014 ZOSTER VACCINE Completed 05/29/2019, 03/26/2019 PNEUMOCOCCAL VACCINE 50+ YEARS Completed 0 10/21/2019, 12/23/2015, 04/25/2014 Medical Devices Implanted Type Area Blasting Helper Device Identifier Shelf Expiration Date Model / Serial / Lot Clip Ligating Horizon Med Ti [id number] - [place] [facility] - [id number] Implanted:Qty: 1 on 08/17/2025 by Alex Desir MD at [facility] Clip Right: Leg TELEFLEX- WECK CLOSURE SYS [id number] 08/04/2029 / / [id number] Clip Ligating Horizon Red [id number] - Csc - [id number] Implanted:Qty: 1 on 08/17/2025 by Alex Desir MD at [facility] Clip Right: Leg TELE[employer]LEX INC [id number] 09/21/2029 [id number] / / [id number] Dev Closure Angioseal 6fr Vip [id number] - [id number] Implanted:Qty: 1 on 08/13/2025 by Alex Desir MD at [facility] Closure Device Left: Groin TERUMO- CARDIOVASC SYS [id number] 04/24/2026 [id number] / / [id number] Patch Vascu-Guard 0.8x8cm Cardio Vg-0108 - [id number] Implanted:Qty: 1 on 08/17/2025 by Alex Desir MD at [facility] Collagen Right: Groin [employer]IS- BIO-VASC[employer] INC [id number] 09/16/2026 [id number] / / [id number] Graft Vasc Hemashield Gold Knit [id number] - [id number] Implanted:Qty: 1 on 08/17/2025 by Alex Desir MD at [facility] Graft Right: Leg [employer] INC 11/14/2029 [id number] / [id number] Hemostatic Surgiflo 8ml W/ Thrombin 2994 - [id number] Implanted:Qty: 1 on 08/17/2025 by Alex Desir MD at [facility] Hemostatic Right: Leg J&J- [employer] INC [id number] 10/14/2026 2994 / / [id number] Hemostatic Surgicel 6x9in 1946 - [id number] Implanted:Qty: 1 on 08/17/2025 by Alex Desir MD at [facility] Hemostatic Right: Leg J&J- [employer] [id number] 03/14/2030 1946 / / [id number] Hemostatic Surgiflo 8ml W/ Thrombin 2994 - [id number] Implanted:Qty: 1 on 08/17/2025 by Alex Desir MD at [facility] Hemostatic Right: Leg J&J- [employer] [id number] 10/14/2026 2994 / / [id number] Stent Viabahn Hep [id number] - [id number] Implanted:Qty: 1 on 08/17/2025 by Alex Desir MD at [facility] Stent Right: Iliac Artery [employer] [id number] 06/18/2027 [id number] / [id number] / Procedures Procedure Name Priority Date/Time Associated Diagnosis Comments TELEMETRY REPORT 08/24/2025 4:14 AM RECREATIONAL COUNSELOR BASIC METABOLIC PANEL Routine 08/21/2025 4:58 AM RECREATIONAL COUNSELOR CBC WITH DIFFERENTIAL Routine 08/21/2025 4:58 AM RECREATIONAL COUNSELOR BASIC METABOLIC PANEL Routine 08/20/2025 3:42 AM RECREATIONAL COUNSELOR CBC WITH DIFFERENTIAL Routine 08/20/2025 3:42 AM RECREATIONAL COUNSELOR BRAIN NATRIURETIC PEPTIDE, BNP OR PROBNP Routine 08/20/2025 3:42 AM RECREATIONAL COUNSELOR BASIC METABOLIC PANEL Pending Discharge 08/19/2025 9:19 AM RECREATIONAL COUNSELOR CBC WITHOUT DIFFERENTIAL Pending Discharge 08/19/2025 9:19 AM RECREATIONAL COUNSELOR CBC WITHOUT DIFFERENTIAL Routine 08/19/2025 4:20 AM RECREATIONAL COUNSELOR BASIC METABOLIC PANEL Routine 08/19/2025 4:20 AM RECREATIONAL COUNSELOR BASIC METABOLIC PANEL Routine 08/18/2025 4:30 AM RECREATIONAL COUNSELOR CBC WITHOUT DIFFERENTIAL Routine 08/18/2025 4:30 AM RECREATIONAL COUNSELOR VERIFICATION BLOOD GROUP Stat 08/17/2025 6:24 PM RECREATIONAL COUNSELOR POC GLUCOSE Routine 08/17/2025 3:55 PM RECREATIONAL COUNSELOR IR FLUORO OR OTHER Routine 08/17/2025 3: 31 PM RECREATIONAL COUNSELOR POC ACTIVATED CLOTTING TIME Routine 08/17/2025 3:30 PM RECREATIONAL COUNSELOR POC ACTIVATED CLOTTING TIME Routine 08/17/2025 3:02 PM RECREATIONAL COUNSELOR POC ACTIVATED CLOTTING TIME Routine 08/17/2025 2:54 PM RECREATIONAL COUNSELOR POC ACTIVATED CLOTTING TIME Routine 08/17/2025 2:18 PM RECREATIONAL COUNSELOR POC ACTIVATED CLOTTING TIME Routine 08/17/2025 1:49 PM RECREATIONAL COUNSELOR GA ANES INSERT ENDOTRACHEAL AIRWAY Routine 08/17/2025 11:15 AM RECREATIONAL COUNSELOR ILIAC ENDOVASCULAR STENT PLACEMENT 08/17/2025 9:36 AM RECREATIONAL COUNSELOR ANGIOPLASTY ARTERIAL 08/17/2025 9:36 AM RECREATIONAL COUNSELOR IRRIGATION AND DEBRIDEMENT 08/17/2025 9:36 AM RECREATIONAL COUNSELOR FEMORAL POPLITEAL BYPASS GRAFT 08/17/2025 9:36 AM RECREATIONAL COUNSELOR FEMORAL ENDARTERECTOMY 08/17/2025 9:36 AM RECREATIONAL COUNSELOR FEMORAL ANGIOGRAPHY 08/17/2025 9 :36 AM RECREATIONAL COUNSELOR TYPE AND SCREEN Routine 08/17/2025 5:12 AM RECREATIONAL COUNSELOR VANCOMYCIN LEVEL RANDOM Routine 08/17/2025 5:12 AM RECREATIONAL COUNSELOR CBC WITH DIFFERENTIAL Routine 08/17/2025 5:12 AM RECREATIONAL COUNSELOR BASIC METABOLIC PANEL Routine 08/17/2025 5:12 AM RECREATIONAL COUNSELOR VANCOMYCIN LEVEL RANDOM Timed Study 08/16/2025 4:45 AM RECREATIONAL COUNSELOR BASIC METABOLIC PANEL Routine 08/16/2025 4:45 AM RECREATIONAL COUNSELOR VITAMIN B12 AND FOLATE Routine 08/15/2025 7:50 AM CDT VANCOMYCIN LEVEL RANDOM Routine 08/15/2025 7:50 AM CDT BASIC METABOLIC PANEL Routine 08/15/2025 7:50 AM CDT IRON, TIBC, AND PERCENT SATURATION Routine 08/14/2025 4:23 PM CDT BASIC METABOLIC PANEL Routine 08/14/2025 4:38 AM CDT VANCOMYCIN LEVEL RANDOM Routine 08/14/2025 4:38 AM CDT CTA ABD AORTA BI ILIOFEM W AND/OR WO Routine 08/13/2025 8:33 PM CDT XR FOOT 3+ VW RIGHT Routine 08/13/2025 6 :23 PM CDT ECHO COMPLETE Routine 08/13/2025 3:46 PM CDT GA INTRODUCTION CATHETER AORTA 08/13/2025 2:47 PM CDT PERIPHERAL ARTERIAL DISEASE GA SLCTV CATHJ 3RD+ ORD SLCTV ABDL PEL/LXTR BRNCH 08/13/2025 2:47 PM CDT PERIPHERAL ARTERIAL DISEASE GA SLCTV CATHJ EA 1ST ORD ABDL PEL/LXTR ART BRNC 08/13/2025 2:47 PM CDT PERIPHERAL ARTERIAL DISEASE GA SLCTV CATHJ 2ND ORDER [facility]DL [facility] 08/13/2025 2:47 PM CDT PERIPHERAL ARTERIAL DISEASE GA INTRO OF NEEDLE OR INTRACATHETER UPR/LXTR ARTERY 08/13/2025 2:47 PM CDT PERIPHERAL ARTERIAL DISEASE POC GLUCOSE Routine 08/13/2025 10:07 AM CDT IR FLUORO OR OTHER Routine 08/13/2025 9: 49 AM CDT ANESTHESIA AIRWAY Routine 08/13/2025 9:2 0 AM CDT VANCOMYCIN LEVEL RANDOM Routine 08/13/2025 4:20 AM CDT BASIC METABOLIC PANEL Routine 08/13/2025 4:20 AM CDT CBC WITH DIFFERENTIAL Routine 08/13/2025 4:20 AM CDT EKG 12-LEAD Routine 08/12/2025 7:03 PM CDT COMPREHENSIVE METABOLIC PANEL Stat 08/12/2025 6:51 PM CDT C-REACTIVE PROTEIN Routine 08/12/2025 6: 51 PM CDT SEDIMENTATION RATE Routine 08/12/2025 6: 51 PM CDT CBC WITH DIFFERENTIAL Routine 08/12/2025 6:51 PM CDT US DUPLEX ARTERIAL LEGS BILATERAL Routine 07/15/2025 12:42 PM CDT from Last 3 Months Results * TELEMETRY REPORT (08/24/2025 4:14 AM RECREATIONAL COUNSELOR) us Provider Scanning ECG ORDERABLES Final Result * (ABNORMAL) CBC WITH DIFFERENTIAL (08/21/2025 4:58 AM RECREATIONAL COUNSELOR) Only the most recent of5 resultswithin the time period is included. Pathologist [facility] WBC 10.3 4.8 - 10.8 K/uL 08/21/2025 5:36 AM [facility] RBC 2.85(L) 4.60 - 6.20 M/uL 08/21/2025 5:36 AM [facility] HEMOGLOBIN 8.0(L) 14.0 - 18.0 g/dL 08/21/2025 5:36 AM [facility] HEMATOCRIT 25.3(L) 41.0 - 53.0 % 08/21/2025 5:36 AM [facility] MCV 88.8 84.0 - 103.0 fL 08/21/2025 5:36 AM [facility] MCH 28.1 27.0 - 34.0 pg 08/21/2025 5:36 AM [facility] MCHC 31.6 30.0 - 35.0 g/dL 08/21/2025 5:36 AM [facility] PLATELETS 296 140 - 440 K/uL 08/21/2025 5:36 AM [facility] MPV 9.5 8.9 - 12.8 fL 08/21/2025 5:36 AM [facility] RDW 14.3 11.0 - 14.5 % 08/21/2025 5:36 AM [facility] RDW-STDEV 46.6 37.0 - 54.0 fL 08/21/2025 5:36 AM [facility] NEUTROPHILS 68 42 - 75 % 08/21/2025 5:36 AM [facility] LYMPHOCYTES 18(L) 24 - 44 % 08/21/2025 5:36 AM [facility] MONOCYTES 7 2 - 10 % 08/21/2025 5:36 AM [facility] EOSINOPHILS 6 0 - 7 % 08/21/2025 5:36 AM [facility] BASOPHILS 1 0 - 1 % 08/21/2025 5:36 AM [facility] IMMATURE GRANULOCYTES 1 0 - 2 % 08/21/2025 5:36 AM [facility] NEUTROPHIL ABSOLUTE 7.01 2.00 - 8.00 K/uL 08/21/2025 5:36 AM [facility] LYMPHOCYTE ABSOLUTE 1.90 1.20 - 4.00 K/uL 08/21/2025 5:36 AM [facility] MONOCYTE ABSOLUTE 0.68(H) 0.10 - 0.60 K/uL 08/21/2025 5:36 AM [facility] EOSINOPHIL ABSOLUTE 0.61 0.00 - 0.70 K/uL 08/21/2025 5:36 AM [facility] BASOPHILS ABSOLUTE 0.05 0.00 - 0.20 K/uL 08/21/2025 5:36 AM [facility] IMMATURE GRANULOCYTES ABSOLUTE 0.06 0.00 - 0.10 K/uL 08/21/2025 5:36 AM [facility] SMEAR REVIEWED: NA - Not Applicable 08/21/2025 5:36 AM [facility] Blood Venipuncture / Unknown 08/21/2025 4:58 AM RECREATIONAL COUNSELOR 08/21/2025 5:29 AM RECREATIONAL COUNSELOR us Nickolas Hdez DO HEMATOLOGY ORDERABL ES Final Result [facility] CLIA # [id number] [address] [address] [place] [address] * (ABNORMAL) BASIC METABOLIC PANEL (08/21/2025 4:58 AM RECREATIONAL COUNSELOR) Only the most recent of10 resultswithin the time period is included. SODIUM 133(L) 136 - 145 mmol/L 08/21/2025 6:10 AM [facility] POTASSIUM 4.1 3.5 - 5.1 mmol/L 08/21/2025 6:10 AM [facility] CHLORIDE 101 98 - 107 mmol/L 08/21/2025 6:10 AM [facility] CO2 23 22 - 29 mmol/L 08/21/2025 6:10 AM [facility] CALCIUM 8.8 8.8 - 10.2 mg/dL 08/21/2025 6:10 AM [facility] BUN 28(H) 8 - 23 mg/dL 08/21/2025 6:10 AM [facility] CREATININE 1.40(H) 0.67 - 1.17 mg/dL 08/21/2025 6:10 AM [facility] Comment:The GFR result is no t clinically significant on patients <18 or >70 years of age. GLUCOSE 96 74 - 99 mg/dL 08/21/2025 6:10 AM [facility] GFR 52 mL/min/1. 73 sq meter 08/21/2025 6:10 AM [facility] Comment:eGFR calculated with 2020 CKD-EPI equation. Vegetarian diet, extremely high or low muscle mass, and may affect results. Cystatin C with Glomerular Filtration Rate is a suitable alternative for these patients. ANION GAP 9 9 - 20 mmol/L 08/21/2025 6:10 AM [facility] Blood Venipuncture / Unknown 08/21/2025 4:58 AM RECREATIONAL COUNSELOR 08/21/2025 5:28 AM RECREATIONAL COUNSELOR us Nickolas Hdez DO CHEMISTRY ORDERABLE S Final Result [facility] CLIA # [id number] [address] [address] * (ABNORMAL) BRAIN NATRIURETIC PEPTIDE, BNP OR PROBNP (08/20/2025 3:42 AM RECREATIONAL COUNSELOR) Pathologist [facility] PROBNP, N TERMINAL 706(H) 0 - 450 pg/mL 08/20/2025 4:41 AM RECREATIONAL COUNSELOR [facility] Comment: INTERPRETIVE COMMENT based on diagnosis: Diagnostic NT pro-BNP cutoffs for Heart Failure in the absence of renal failure is suggested for the following ranges <75 years: <125 pg/mL >=75 years: <450 pg/mL Exclusionary rule out cut-point for Acute Decompensated Heart Failure(ADHF) All ages: <300 pg/mL Diagnostic NT pro-BNP cutoffs for Acute Decompensated Heart Failure(ADHF) in the absence of renal failure is suggested for the following ages <50 years: > 450 pg/mL 50-75 years: > 900 pg/mL >75 years: >1800 pg/mL Blood Venipuncture / Unknown 08/20/2025 3:42 AM RECREATIONAL COUNSELOR 08/20/2025 4:03 AM RECREATIONAL COUNSELOR Nickolas Hdez DO CHEMISTRY ORDERABLE S Final Result [facility] CLIA # [id number] [address] [address] * (ABNORMAL) CBC WITHOUT DIFFERENTIAL (08/19/2025 9:19 AM RECREATIONAL COUNSELOR) Only the most recent of3 resultswithin the time period is included. [facility] WBC 10.1 4.8 - 10.8 K/uL 08/19/2025 9:31 AM [facility] RBC 2.63(L) 4.60 - 6.20 M/uL 08/19/2025 9:31 AM [facility] HEMOGLOBIN 7.5(L) 14.0 - 18.0 g/dL 08/19/2025 9:31 AM [facility] HEMATOCRIT 23.9(L) 41.0 - 53.0 % 08/19/2025 9:31 AM [facility] MCV 90.9 84.0 - 103.0 fL 08/19/2025 9:31 AM [facility] MCH 28.5 27.0 - 34.0 pg 08/19/2025 9:31 AM [facility] MCHC 31.4 30.0 - 35.0 g/dL 08/19/2025 9:31 AM [facility] PLATELETS 254 140 - 440 K/uL 08/19/2025 9:31 AM [facility] MPV 9.4 8.9 - 12.8 fL 08/19/2025 9:31 AM [facility] RDW 14.7(H) 11.0 - 14.5 % 08/19/2025 9:31 AM [facility] RDW-STDEV 49.5 37.0 - 54.0 fL 08/19/2025 9:31 AM [facility] Blood Venipuncture / Unknown 08/19/2025 9:19 AM RECREATIONAL COUNSELOR 08/19/2025 9:25 AM RECREATIONAL COUNSELOR Nickolas Hdez DO HEMATOLOGY ORDERABL ES Final Result [facility] CLIA # [id number] [address] [place] [address] * VERIFICATION BLOOD GROUP (08/17/2025 6:24 PM RECREATIONAL COUNSELOR) ABO GROUP O 08/17/2025 7:[address] [facility] RH (D) TYPE Positive 08/17/2025 7:17 PM [facility] Blood Venipuncture / Unknown 08/17/2025 6:24 PM RECREATIONAL COUNSELOR 08/17/2025 6:43 PM RECREATIONAL COUNSELOR us Evan Galvan MD BLOOD BANK ORDERABLES Final Result Performing Organization Address [facility]/ZIP Co de Phone Number [id number] [address] [place] [address], * (ABNORMAL) POC GLUCOSE (08/17/2025 3:55 PM RECREATIONAL COUNSELOR) Only the most recent of2 resultswithin the time period is included. GLUCOSE POC 179(H) 74 - 99 mg/dL 08/17/2025 3:55 PM RECREATIONAL COUNSELOR [facility] SPECIMEN SOURCE, GLUCOSE POC Capillary 08/17/2025 3:55 PM RECREATIONAL COUNSELOR [facility] Blood, whole 08/17/2025 3:55 PM RECREATIONAL COUNSELOR 08/17/2025 4:05 PM RECREATIONAL COUNSELOR Evan Galvan MD POINT OF CARE TESTING Final Result Performing Organization Address [facility] Co de Phone Number [facility] CLIA # [id number] [address] [address] * IR FLUORO OR OTHER (08/17/2025 3:31 PM RECREATIONAL COUNSELOR) Only the most recent of2 resultswithin the time period is included. Narrative 08/17/2025 3:32 PM RECREATIONAL COUNSELOR Order Auto Finalized. Please see associated Operative Report/Progress Note/Procedure Note from the same date. Alex Desir MD IR ORDERABLES Final Result * (ABNORMAL) POC ACTIVATED CLOTTING TIME (08/17/2025 3:30 PM RECREATIONAL COUNSELOR) Only the most recent of5 resultswithin the time period is included. ACTIVATED CLOTTING TIME POC 245(H) 116 - 140 sec 08/17/2025 3:30 PM RECREATIONAL COUNSELOR [facility] Blood 08/17/2025 3:30 PM RECREATIONAL COUNSELOR 08/17/2025 4:23 PM RECREATIONAL COUNSELOR us Evan Galvan MD POINT OF CARE TESTING Final Result [facility] [employer] [facility] # [id number] [address] [facility] [place] [address] * GA ANES INSERT ENDOTRACHEAL AIRWAY (08/17/2025 11:15 AM RECREATIONAL COUNSELOR) Narrative Stephany Baker (Student), RN - 08/17/2025 11:15 AM RECREATIONAL COUNSELOR Stephany Baker (Student), RN 08/17/2025 11:53 AM Airway Date/Time: 08/17/2025 11:15 AM Plan: elective intubation Patient Identity Confirmed by: Verbally with patient Airway: not difficult Staffing Performed: Student NA/AA Authorized by: Ronald Collins MD Performed by: Stephany Baker (Student), RN Indications and Patient Condition: Indications for Airway Management: Anesthesia Sedation Level: general anesthesia Preoxygenated: yes Patient Position: Sniffing Mask Difficulty Assessment: 2 - vent by mask + OA or adjuvant +/- NMBA Oral Airway: 100mm Plan to extubate at end of case: Yes Final Airway Details: Final Airway Type: Endotracheal airway ETT Cuffed: Yes Cuff Volume (mL): 10 Technique Used for Successful ETT Placement: Direct laryngoscopy Devices/Methods Used in Placement: Intubating stylet Blade Type: curved blade Blade Size: 4 Insertion Site: Oral ETT Size (mm): 7.5 Measured from: Gums ETT to Gums (cm): 23 Tube secured with: Tape Placement Verified by: auscultation and end tidal CO2 Cormack-Lehane Classification: Grade I - full view of glottis Number of Attempts at Approach: 1 Additional Procedure Information: atraumatic and dentition unchanged Ronald Collins MD PROCEDURE/MINOR SURGICAL ORDER BRE Final Result * TYPE AND SCREEN (08/17/2025 5:12 AM RECREATIONAL COUNSELOR) ABO GROUP O 08/17/2025 7:06 AM RECREATIONAL COUNSELOR [facility] [employer] [facility] RH (D) TYPE Positive 08/17/2025 7:06 AM RECREATIONAL COUNSELOR [facility] [employer] [facility] [place] ANTIBODY SCREEN Negative 08/17/2025 7:06 AM [facility] [place] Blood Venipuncture / Unknown 08/17/2025 5:12 AM RECREATIONAL COUNSELOR 08/17/2025 5:59 AM RECREATIONAL COUNSELOR Holly Priest POLICY WRITER TYPIST BLOOD BANK ORDERABLES Jeremiah harman Result - Final Performing Organization Address City/[facility]/ZIP Co de Phone Number [facility] CLIA#[id number] [address] [place] [address], * VANCOMYCIN LEVEL RANDOM (08/17/2025 5:12 AM RECREATIONAL COUNSELOR) Only the most recent of5 resultswithin the time period is included. VANCOMYCIN, RANDOM 14.3 5.0 - 50.0 ug/mL 08/17/2025 7:01 AM [facility] Blood Venipuncture / Unknown 08/17/2025 5:12 AM RECREATIONAL COUNSELOR 08/17/2025 6:02 AM RECREATIONAL COUNSELOR Narrative [facility] - 08/17/2025 7:01 AM RECREATIONAL COUNSELOR Vancomycin Therapeutic Ranges: Vancomycin Trough: 10 - 20 mcg/mL Vancomycin Peak: 25 - 50 mcg/mL Alex Desir MD CHEMISTRY ORDERABLES Final Res ult Performing Organization Address City/[facility]/ZIP Co de Phone Number [facility] CLIA # [id number] [address] [address] * VITAMIN B12 AND FOLATE (08/15/2025 7:50 AM CDT) VITAMIN B12 274 211 - 946 pg/mL 08/15/2025 9:07 AM CDT [facility] FOLATE, SERUM 6.0 3.1 - 17.5 ng/mL 08/15/2025 9:07 AM CDT [facility] Blood Venipuncture / Unknown 08/15/2025 7:50 AM CDT 08/15/2025 8:18 AM CDT Evan Galvan MD CHEMISTRY ORDERABLES Final Result Performing Organization Address [facility] Co de Phone Number [facility] CLIA # [id number] [address] [address] [place] [address] * (ABNORMAL) IRON, TIBC, AND PERCENT SATURATION (08/14/2025 4:23 PM CDT) [facility] IRON 28(L) 59 - 158 ug/dL 08/14/2025 5:13 PM CDT [facility] TIBC 211(L) 250 - 450 ug/dL 08/14/2025 5:13 PM CDT [facility] IRON % SATURATION 13(L) 15 - 60 % 08/14/2025 5:13 PM CDT [facility] Blood Venipuncture / Unknown 08/14/2025 4:23 PM CDT 08/14/2025 4:37 PM CDT Evan Galvan MD CHEMISTRY ORDERABLES Final Result Performing Organization Address [facility] Co de Phone Number [facility] CLIA # [id number] [address] [address] * CTA ABD AORTA BI ILIOFEM W AND/OR WO (08/13/2025 8:33 PM CDT) Anatomical Region Laterality Modality Abdomen Computed Tomogra phy 08/13/2025 8:27 PM CDT Narrative 08/14/2025 8:12 AM CDT Exam: CTA ABD AORTA BI ILIOFEM W AND/OR WO Date/Time of Exam: 08/13/2025 8:33 PM Reason For Exam: Claudication or leg ischemia. Diagnosis: See Reason for Exam. Technique: Continuous axial images of the abdomen, pelvis, and bilateral lower extremities was obtained following the intravenous administration in the angiographic phase. The protocol was optimized to evaluate the aorta and bilateral iliofemoral arteries. Sagittal and coronal reformatted images were obtained. Post-processing was performed, including sagittal and coronal reformations and 3-D reconstruction. Contrast: Isovue-300 Comparison: None. Findings: Lower chest: The heart is mildly enlarged without pericardial effusion. Atelectasis is noted in the lower lung zones. No pleural effusion. ABDOMEN: The liver is normal in size and contour. There are multiple hepatic cysts. No calcified gallstones or biliary ductal dilatation. Infused appearance of the pancreas and spleen is normal. Slight nodularity is noted of both adrenal glands. The kidneys enhance symmetrically without hydronephrosis. There are multiple bilateral renal cysts measuring up to 6.7 cm in the right renal pelvis. The small bowel caliber is normal without obstruction. There multiple fat-containing ventral abdominal wall hernias. Moderate fecal burden is present throughout the colon and diverticulosis is noted throughout the descending and sigmoid segments. Pelvis: Contrast is present in the bladder from recent angiogram. There is trabecular bladder wall thickening and multiple diverticula consistent with chronic outlet obstruction. Prostate gland is enlarged with small calcifications. MUSCULOSKELETAL: Degenerative changes are noted throughout the lower thoracic and lumbar spine. There is a remote T12 inferior endplate compression fracture. Surgical fixation noted of remote right medial and lateral malleoli fractures. 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 Vascular: Extensive atherosclerosis is noted throughout the abdominal aorta and major branches. There is at least moderate narrowing noted of the proximal right renal artery. Atherosclerotic plaque in the mid superior mesenteric artery leads to a mild stenosis. The infrarenal aorta is mildly aneurysmal measuring 3.1 x 3.1 cm. On the right, the common iliac artery is aneurysmal up to 1.7 cm. There is a severe stenosis of the proximal internal iliac artery. The external iliac artery is completely occluded and the common femoral artery is reconstituted. The profunda femoris is patent. Superficial femoral artery is occluded throughout its course and there is reconstitution of the above-knee popliteal artery. The popliteal artery is atherosclerotic with mild to moderate multifocal stenoses. The calf vessels are atherosclerotic, but patent to the ankle/foot. On the left, the common iliac artery is mildly aneurysmal up to 18 mm. There is a high-grade focal stenosis of the proximal internal iliac artery. The external iliac artery is atherosclerotic, but patent. Calcified and noncalcified plaque leads to mild narrowing of the common femoral artery. The profunda femoris is patent. There are multifocal proximal SFA stenoses. The SFA is then occluded, but reconstituted in the adductor canal. There is a severe above-knee popliteal artery stenosis. Atherosclerotic plaque is noted within the catheter vessels, but they are patent to the ankle/foot. ++++++++++++++++++++ IMPRESSION Mild aneurysmal dilatation of the infrarenal aorta up to 3.1 cm and both common iliac arteries up to 1.7 cm on the right and 1.8 cm on the left. Severe bilateral internal iliac artery stenoses. Right external iliac artery occlusion with reconstitution of the common femoral artery, but also with complete SFA occlusion with reconstitution of the above-knee popliteal artery. Three-vessel runoff. Moderate length left SFA occlusion with reconstitution of the popliteal artery. There are multifocal popliteal artery stenoses, but a three-vessel runoff to the foot. Hepatic and renal cysts. Colonic diverticulosis. Prostatomegaly with bladder findings of chronic outlet obstruction. Procedure Note Ramirez Rivera MD - 08/14/2025 Exam: CTA ABD AORTA BI ILIOFEM W AND/OR WO Date/Time of Exam: 08/13/2025 8:33 PM Reason For Exam: Claudication or leg ischemia. Diagnosis: See Reason for Exam. Technique: Continuous axial images of the abdomen, pelvis, and bilateral lower extremities was obtained following the intravenous administration in the angiographic phase. The protocol was optimized to evaluate the aorta and bilateral iliofemoral arteries. Sagittal and coronal reformatted images were obtained. Post-processing was performed, including sagittal and coronal reformations and 3-D reconstruction. Contrast: Isovue-300 Comparison: None. Findings: Lower chest: The heart is mildly enlarged without pericardial effusion. Atelectasis is noted in the lower lung zones. No pleural effusion. ABDOMEN: The liver is normal in size and contour. There are multiple hepatic cysts. No calcified gallstones or biliary ductal dilatation. Infused appearance of the pancreas and spleen is normal. Slight nodularity is noted of both adrenal glands. The kidneys enhance symmetrically without hydronephrosis. There are multiple bilateral renal cysts measuring up to 6.7 cm in the right renal pelvis. The small bowel caliber is normal without obstruction. There multiple fat-containing ventral abdominal wall hernias. Moderate fecal burden is present throughout the colon and diverticulosis is noted throughout the descending and sigmoid segments. Pelvis: Contrast is present in the bladder from recent angiogram. There is trabecular bladder wall thickening and multiple diverticula consistent with chronic outlet obstruction. Prostate gland is enlarged with small calcifications. MUSCULOSKELETAL: Degenerative changes are noted throughout the lower thoracic and lumbar spine. There is a remote T12 inferior endplate compression fracture. Surgical fixation noted of remote right medial and lateral malleoli fractures. 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 Vascular: Extensive atherosclerosis is noted throughout the abdominal aorta and major branches. There is at least moderate narrowing noted of the proximal right renal artery. Atherosclerotic plaque in the mid superior mesenteric artery leads to a mild stenosis. The infrarenal aorta is mildly aneurysmal measuring 3.1 x 3.1 cm. On the right, the common iliac artery is aneurysmal up to 1.7 cm. There is a severe stenosis of the proximal internal iliac artery. The external iliac artery is completely occluded and the common femoral artery is reconstituted. The profunda femoris is patent. Superficial femoral artery is occluded throughout its course and there is reconstitution of the above-knee popliteal artery. The popliteal artery is atherosclerotic with mild to moderate multifocal stenoses. The calf vessels are atherosclerotic, but patent to the ankle/foot. On the left, the common iliac artery is mildly aneurysmal up to 18 mm. There is a high-grade focal stenosis of the proximal internal iliac artery. The external iliac artery is atherosclerotic, but patent. Calcified and noncalcified plaque leads to mild narrowing of the common femoral artery. The profunda femoris is patent. There are multifocal proximal SFA stenoses. The SFA is then occluded, but reconstituted in the adductor canal. There is a severe above-knee popliteal artery stenosis. Atherosclerotic plaque is noted within the catheter vessels, but they are patent to the ankle/foot. ++++++++++++++++++++ IMPRESSION Mild aneurysmal dilatation of the infrarenal aorta up to 3.1 cm and both common iliac arteries up to 1.7 cm on the right and 1.8 cm on the left. Severe bilateral internal iliac artery stenoses. Right external iliac artery occlusion with reconstitution of the common femoral artery, but also with complete SFA occlusion with reconstitution of the above-knee popliteal artery. Three-vessel runoff. Moderate length left SFA occlusion with reconstitution of the popliteal artery. There are multifocal popliteal artery stenoses, but a three-vessel runoff to the foot. Hepatic and renal cysts. Colonic diverticulosis. Prostatomegaly with bladder findings of chronic outlet obstruction. Alex Desir MD CT ORDERABLES Final Result * XR FOOT 3+ VW RIGHT (08/13/2025 6:23 PM CDT) Anatomical Region Laterality Modality Ankle / Foot Computed Radiogr aphy 08/13/2025 6:23 PM CDT Impressions 08/13/2025 7:28 PM CDT IMPRESSION: Please see below. Exam: XR FOOT 3+ VW RIGHT Date/Time of Exam: 08/13/2025 6:23 PM REASON FOR EXAM: Osteomyelitis, Comment: Forefoot stump.. DIAGNOSIS: See Reason for Exam. Findings: There is transmetatarsal interpretation change with adjacent soft tissue swelling. A couple tiny residual osseous fragments are seen at the first metatarsal resection bed and the fifth metatarsal resection bed. There may be some mild ulceration along the medial amputation site. There is some subtle cortical irregularity of the first metatarsal amputation stump. The intramedullary francois is seen in the fibula. There is prior medial malleolar and tibial plafond and ORIF with cannulated screws. IMPRESSION: Questionable osteomyelitis involving the base of the first metatarsal stump with adjacent ulceration. If further evaluation is warranted, MRI or nuclear medicine bone scan are more sensitive modalities. Narrative Procedure Note Placido Buck MD - 08/13/2025 IMPRESSION: Please see below. Exam: XR FOOT 3+ VW RIGHT Date/Time of Exam: 08/13/2025 6:23 PM REASON FOR EXAM: Osteomyelitis, Comment: Forefoot stump.. DIAGNOSIS: See Reason for Exam. Findings: There is transmetatarsal interpretation change with adjacent soft tissue swelling. A couple tiny residual osseous fragments are seen at the first metatarsal resection bed and the fifth metatarsal resection bed. There may be some mild ulceration along the medial amputation site. There is some subtle cortical irregularity of the first metatarsal amputation stump. The intramedullary francois is seen in the fibula. There is prior medial malleolar and tibial plafond and ORIF with cannulated screws. IMPRESSION: Questionable osteomyelitis involving the base of the first metatarsal stump with adjacent ulceration. If further evaluation is warranted, MRI or nuclear medicine bone scan are more sensitive modalities. us Zheng Torres [facility] DIAGNOSTIC IMAGING ORDERABLES Fi nal Result * ECHO COMPLETE - CONTRAST AND STRAIN IF INDICATED (08/13/2025 3:46 PM CDT) EJECTION FRACTION 57 INTERFACE SYSTEM 08/13/2025 1:50 PM CDT Narrative INTERFACE SYSTEM - 08/13/2025 5:06 PM CDT [facility] Echocardiography Laboratory [address] [place] [id number] Transthoracic Echocardiography Patient: Jace Christie Study ID: ECHO LIMITED WO A Gender: M : 1950 Age: 75 Room: [facility] Study 08/13/2025 Pt Inpatient Date: Status: Study 01:50:31 PM CSN #: [id number] Time: Ordering:Alex Desir Wildlife Photographer: Ulises Tiwari Indications and History: Pre op. Summary and Conclusion: - Left ventricle: The cavity size is normal. Wall thickness is normal. Global systolic function is normal. The estimated ejection fraction is 55-60%. For Epic reporting: the left ventricular ejection fraction is 57% by biplane method of disks. No diagnostic regional wall motion abnormality identified. Doppler parameters are consistent with abnormal left ventricular relaxation (grade 1 diastolic dysfunction). The longitudinal strain is -19.1% (Normal range is -18 to -25). - Right ventricle: The cavity size is normal. Systolic function is normal. Systolic pressure is within the normal range. - Mitral valve: There is trivial to mild regurgitation. - Ascending aorta: The vessel is mildly dilated and 39.0mm diameter. Procedure information: Study status: Routine. Procedure: A transthoracic echocardiogram was performed. Image quality was adequate. Scanning was performed from the parasternal, apical, subcostal, and suprasternal notch acoustic windows. Study components: M-mode, 2D, complete spectral Doppler, and color Doppler. Height: 188cm. Height: 74in. Weight: 80.8kg. Weight: 178.1lb. BMI: 22.9kg/m^2. BSA: 2.05m^2. Blood pressure: 152/51 Study date: 08/13/2025. Study time: 01:50 PM. Location: Bedside. Cardiac Anatomy: LEFT VENTRICLE: The cavity size is normal. Wall thickness is normal. Global systolic function is normal. The estimated ejection fraction is 55-60%. For Epic reporting: the left ventricular ejection fraction is 57% by biplane method of disks. No diagnostic regional wall motion abnormality identified. The longitudinal strain is -19.1% (Normal range is -18 to -25). Doppler parameters are consistent with abnormal left ventricular relaxation (grade 1 diastolic dysfunction). RIGHT VENTRICLE: The cavity size is normal. Systolic function is normal. Systolic pressure is within the normal range. LEFT ATRIUM: The atrium is normal in size. RIGHT ATRIUM: The atrium is normal in size. ATRIAL SEPTUM: No obvious PFO or ASD identified by 2D imaging and color Doppler. AORTIC VALVE: The valve is trileaflet. The leaflets are normal thickness. Mobility is not restricted. There is no stenosis. There is no significant regurgitation. MITRAL VALVE: Structurally normal valve. Mobility is not restricted. No evidence for prolapse. There is no evidence for stenosis. There is trivial to mild regurgitation. TRICUSPID VALVE: Structurally normal valve. Mobility is unrestricted. There is no evidence for stenosis. There is trivial regurgitation. PULMONIC VALVE: Not well visualized. The valve appears to be grossly normal. There is no evidence for stenosis. There is no significant regurgitation. PERICARDIUM: A minimal pericardial effusion and/or fat pad was identified. AORTA: Aortic root: The root is not dilated. Ascending aorta: The vessel is mildly dilated and 39.0mm diameter. Aortic arch: The vessel is not dilated. INTRACARDIAC MASS THROMBUS: No apparent intracavitary masses or thrombi detected. Measurements Left ventricle Value Right ventricle Value GLS, 2D -19.1 % MAXIM, LAX 3.6 cm MAXIM, LAX 5.6 cm MAXIM, SAX 1.8 cm ESD, LAX 3.4 cm MAXIM minor ax, A4C 1.8 cm MAXIM/bsa, LAX 2.7 cm/m^2 MAXIM 3.6 cm ESD/bsa, LAX 1.6 cm/m^2 TAPSE, 2D 1.9 cm FS, LAX 40 % TAPSE, MM 1.9 cm FS, LAX chord 40 % S' lateral 13.6 cm/sec ESD major ax, A4C 7.5 cm ESD/bsa major ax, A4C 3.7 cm/m^2 Left atrium Value MAXIM minor ax, A4C 7.5 cm AP dim, ES 4.1 cm MAXIM/bsa minor ax, A4C 3.7 cm/m^2 AP dim index, ES 2.0 cm/m^2 MAXIM major ax, A2C 8.6 cm SI dim, A4C 6.8 cm ESD major ax, A2C 7.5 cm Area ES, A4C 26 cm^2 MAXIM/bsa major ax, A2C 4.2 cm/m^2 Vol, S 89 ml ESD/bsa major ax, A2C 3.7 cm/m^2 Vol/bsa, S 44 ml/m^2 IVS, ED 1.0 cm Vol, ES, 1-p A4C 81 ml ESD 3.4 cm Vol/bsa, ES, 1-p A4C 39 ml/m^2 ESD/bsa 1.6 cm/m^2 Vol, ES, 1-p A2C 83 ml FS 40 % Vol/bsa, ES, 1-p A2C 41 ml/m^2 PW, ED 1.1 cm Vol, ES, 2-p 83 ml IVS/PW, ED 0.89 Vol/bsa, ES, 2-p 41 ml/m^2 EDV, 1-p A2C 55 ml Vol, ES, A/L 87 ml ESV, 1-p A2C 19 ml Vol/bsa, ES, A/L 43 ml/m^2 EF, 1-p A2C 34 % EDV/bsa, 1-p A2C 27 ml/m^2 Right atrium Value ESV/bsa, 1-p A2C 9 ml/m^2 Area, ES 19 cm^2 EDV, 1-p A4C 97 ml Area, ES, A4C 19 cm^2 ESV, 1-p A4C 35 ml EF, 1-p A4C 64 % Aortic valve Value SV, 1-p A4C 62 ml Peak v, S 170.74 cm/sec EDV/bsa, 1-p A4C 47 ml/m^2 Mean v, S 101.86 cm/sec ESV/bsa, 1-p A4C 17 ml/m^2 VTI, S 33.3 cm SV/bsa, 1-p A4C 30 ml/m^2 Mean grad, S 5 mm Hg EDV, 2-p 77 ml Peak grad, S 12 mm Hg ESV, 2-p 36 ml LVOT/AV, VTI ratio 0.87 EF, 2-p 53 % QUAN, VTI 3.38 cm^2 SV, 2-p 37 ml QUAN/bsa, VTI 1.65 cm^2/m^2 EDV/bsa, 2-p 37 ml/m^2 LVOT/AV, Vpeak ratio 0.84 ESV/bsa, 2-p 17 ml/m^2 QUAN, Vmax 3.28 cm^2 SV/bsa, 2-p 17.8 ml/m^2 QUAN/bsa, Vmax 1.6 cm^2/m^2 E', lat elizabeth, TDI 10.8 cm/sec LVOT/AV, Vmean ratio 0.77 E/e', lat elizabeth, TDI 6 QUAN, Vmean 3.0 cm^2 E', med elizabeth, TDI 9.8 cm/sec QUAN/bsa, Vmean 1.46 cm^2/m^2 E/e', med elizabeth, TDI 7 E', avg, TDI 10.3 cm/sec Mitral valve Value E/e', avg, TDI 6 Peak E 64.57 cm/sec Peak A 76.48 cm/sec LVOT Value Decel slope 242.28 cm/s^2 Diam, S 2.2 cm Decel time 267 ms Area 3.9 cm^2 Peak E/A ratio 0.84 Peak fani, S 143.41 cm/sec Vena contracta width 3.6 cm Mean fani, S 78.28 cm/sec VTI, S 28.9 cm Ascending aorta Value Peak grad, S 8 mm Hg AAo AP diam, S 3.9 cm Mean grad, S 3 mm Hg AAo AP diam/bsa, S 1.9 cm/m^2 SV 113 ml Qs 18.3 L/min Inferior vena cava Value Qs/bsa 8.9 L/(min-m^2) Diam 1.9 cm SV/bsa 55 ml/m^2 Legend: (L) and (H) pola values outside specified reference range. [facility] are accredited with the Intersocietal Accreditation Commission - Echocardiography. Prepared and Electronically Authenticated Damien Meza MD Confirmed 08/13/2025 17:06 Procedure Note Damien Meza MD - 08/13/2025 [facility] Echocardiography Laboratory [address] [place] [id number] Transthoracic Echocardiography Patient: Jace Christie Study ID: ECHO LIMITEDWO A Gender: Catalina : 1950 Age: 75 Room: [facility] Study 08/13/2025 Pt Inpatient Date: Status: Study 01:50:31 PM CSN #: [id number] Time: Ordering:Alex Desir Wildlife Photographer: Ulises Tiwari Indications and History: Pre op. Summary and Conclusion: - Left ventricle: The cavity size is normal. Wall thickness is normal.Global systolic function is normal. The estimated ejection fraction is 55-60%.For Epic reporting: the left ventricular ejection fraction is 57% bybiplane method of disks. No diagnostic regional wall motion abnormalityidentified. Doppler parameters are consistent with abnormal left ventricularrelaxation (grade 1 diastolic dysfunction). The longitudinal strain is -19.1%(Normal range is -18 to -25). - Right ventricle: The cavity size is normal. Systolic function isnormal. Systolic pressure is within the normal range. - Mitral valve: There is trivial to mild regurgitation. - Ascending aorta: The vessel is mildly dilated and 39.0mm diameter. Procedure information: Study status: Routine. Procedure: Atransthoracic echocardiogram was performed. Image quality was adequate. Scanning was performed from the parasternal, apical, subcostal, and suprasternalnotch acoustic windows. Study components: M-mode, 2D, completespectral Doppler, and color Doppler. Height: 188cm. Height: 74in. Weight:80.8kg. Weight: 178.1lb. BMI: 22.9kg/m^2. BSA: 2.05m^2. Blood pressure: 152/51 Study date: 08/13/2025. Study time: 01:50 PM. Location:Bedside. Cardiac Anatomy: LEFT VENTRICLE: The cavity size is normal. Wall thickness is normal.Global systolic function is normal. The estimated ejection fraction is 55-60%.For Epic reporting: the left ventricular ejection fraction is 57% by biplane method of disks. No diagnostic regional wall motion abnormalityidentified. The longitudinal strain is -19.1% (Normal range is -18 to -25). Doppler parameters are consistent with abnormal left ventricular relaxation (grade1 diastolic dysfunction). RIGHT VENTRICLE: The cavity size is normal. Systolic function isnormal. Systolic pressure is within the normal range. LEFT ATRIUM: The atrium is normal in size. RIGHT ATRIUM: The atrium is normal in size. ATRIAL SEPTUM: No obvious PFO or ASD identified by 2D imaging and color Doppler. AORTIC VALVE: The valve is trileaflet. The leaflets are normalthickness. Mobility is not restricted. There is no stenosis. There is nosignificant regurgitation. MITRAL VALVE: Structurally normal valve. Mobility is not restricted.No evidence for prolapse. There is no evidence for stenosis. There istrivial to mild regurgitation. TRICUSPID VALVE: Structurally normal valve. Mobility isunrestricted. There is no evidence for stenosis. There is trivial regurgitation. PULMONIC VALVE: Not well visualized. The valve appears to be grosslynormal. There is no evidence for stenosis. There is no significantregurgitation. PERICARDIUM: A minimal pericardial effusion and/or fat pad wasidentified. AORTA: Aortic root: The root is not dilated. Ascending aorta: The vessel is mildly dilated and 39.0mm diameter. Aortic arch: The vessel is not dilated. INTRACARDIAC MASS THROMBUS: No apparent intracavitary masses or thrombi detected. Measurements Left ventricle Value Right ventricle Value GLS, 2D -19.1 % MAXIM, LAX 3.6cm MAXIM, LAX 5.6 cm MAXIM, SAX 1.8cm ESD, LAX 3.4 cm MAXIM minor ax, A4C 1.8cm MAXIM/bsa, LAX 2.7 cm/m^2 MAXIM 3.6cm ESD/bsa, LAX 1.6 cm/m^2 TAPSE, 2D 1.9cm FS, LAX 40 % TAPSE, MM 1.9cm FS, LAX chord 40 % S' lateral 13.6cm/sec ESD major ax, A4C 7.5 cm ESD/bsa major ax, A4C 3.7 cm/m^2 Left atrium Value MAXIM minor ax, A4C 7.5 cm AP dim, ES 4.1cm MAXIM/bsa minor ax, A4C 3.7 cm/m^2 AP dim index, ES 2.0cm/m^2 MAXIM major ax, A2C 8.6 cm SI dim, A4C 6.8cm ESD major ax, A2C 7.5 cm Area ES, A4C 26cm^2 MAXIM/bsa major ax, A2C 4.2 cm/m^2 Vol, S 89ml ESD/bsa major ax, A2C 3.7 cm/m^2 Vol/bsa, S 44ml/m^2 IVS, ED 1.0 cm Vol, ES, 1-p A4C 81ml ESD 3.4 cm Vol/bsa, ES, 1-p A4C 39ml/m^2 ESD/bsa 1.6 cm/m^2 Vol, ES, 1-p A2C 83ml FS 40 % Vol/bsa, ES, 1-p A2C 41ml/m^2 PW, ED 1.1 cm Vol, ES, 2-p 83ml IVS/PW, ED 0.89 Vol/bsa, ES, 2-p 41ml/m^2 EDV, 1-p A2C 55 ml Vol, ES, A/L 87ml ESV, 1-p A2C 19 ml Vol/bsa, ES, A/L 43ml/m^2 EF, 1-p A2C 34 % EDV/bsa, 1-p A2C 27 ml/m^2 Right atrium Value ESV/bsa, 1-p A2C 9 ml/m^2 Area, ES 19cm^2 EDV, 1-p A4C 97 ml Area, ES, A4C 19cm^2 ESV, 1-p A4C 35 ml EF, 1-p A4C 64 % Aortic valve Value SV, 1-p A4C 62 ml Peak v, S 170.74cm/sec EDV/bsa, 1-p A4C 47 ml/m^2 Mean v, S 101.86cm/sec ESV/bsa, 1-p A4C 17 ml/m^2 VTI, S 33.3cm SV/bsa, 1-p A4C 30 ml/m^2 Mean grad, S 5mm Hg EDV, 2-p 77 ml Peak grad, S 12mm Hg ESV, 2-p 36 ml LVOT/AV, VTI ratio 0.87 EF, 2-p 53 % QUAN, VTI 3.38cm^2 SV, 2-p 37 ml QUAN/bsa, VTI 1.65cm^2/m^2 EDV/bsa, 2-p 37 ml/m^2 LVOT/AV, Vpeak ratio 0.84 ESV/bsa, 2-p 17 ml/m^2 QUAN, Vmax 3.28cm^2 SV/bsa, 2-p 17.8 ml/m^2 QAUN/bsa, Vmax 1.6cm^2/m^2 E', lat elizabeth, TDI 10.8 cm/sec LVOT/AV, Vmean ratio 0.77 E/e', lat elizabeth, TDI 6 QUAN, Vmean 3.0cm^2 E', med elizabeth, TDI 9.8 cm/sec QUAN/bsa, Vmean 1.46cm^2/m^2 E/e', med elizabeth, TDI 7 E', avg, TDI 10.3 cm/sec Mitral valve Value E/e', avg, TDI 6 Peak E 64.57cm/sec Peak A 76.48cm/sec LVOT Value Decel slope 242.28cm/s^2 Diam, S 2.2 cm Decel time 267ms Area 3.9 cm^2 Peak E/A ratio 0.84 Peak fani, S 143.41 cm/sec Vena contracta width 3.6cm Mean fani, S 78.28 cm/sec VTI, S 28.9 cm Ascending aorta Value Peak grad, S 8 mm Hg AAo AP diam, S 3.9cm Mean grad, S 3 mm Hg AAo AP diam/bsa, S 1.9cm/m^2 SV 113 ml Qs 18.3 L/min Inferior vena cava Value Qs/bsa 8.9 L/(min-m^2) Diam 1.9cm SV/bsa 55 ml/m^2 Legend: (L) and (H) pola values outside specified reference range. [facility] are accredited with the[facility] Accreditation Commission - Echocardiography. Prepared and Electronically Authenticated Damien Meza MD Confirmed 08/13/2025 17:06 us Alex Desir MD ORDERABLES Final Result Performing Organization Address City/State/[facility] Co de Phone Number INTERFACE SYSTEM Refer to clinic/hospital department * Airway (08/13/2025 9:20 AM CDT) Narrative Reynold Cody AA-C - 08/13/2025 9:20 AM CDT Reynold Cody AA-C 08/13/2025 9:35 AM Airway Date/Time: 08/13/2025 9:20 AM Location: OR Plan: routine intubation Patient Identity Confirmed by: Verbally with patient and armband Airway: not difficult Staffing Performed: DRAY TRUCK DRIVER/CAA Authorized by: Stephen Red MD Performed by: Reynold Cody AA-C Indications and Patient Condition: Indications for Airway Management: Anesthesia Sedation Level: sedation Plan to extubate at end of case: Yes Final Airway Details: Final Airway Type: Mask us Stephen Red MD PROCEDURE/MINOR SURGIC AL ORDERABLES Final Result * EKG 12-LEAD (08/12/2025 7:03 PM CDT) 08/12/2025 7:03 PM CDT Narrative INTERFACE SYSTEM - 08/13/2025 6:53 [place] [address] Test Date: 2025-08-12 Pat Name: [facility] Department: 12 Room: [address] [place] [address] Gender: Male Sign Hanger: [id number] : 1950 Requested By: Order Number: [id number] Reading MD: Vivien Bustillo Measurements Intervals [place] Rate: 54 P: 72 GA: 228 QRS: -19 QRSD: 90 T: 37 QT: 450 QTc: 426 Interpretive Statements Sinus bradycardia with 1st degree AV block with premature supraventricular complexes Otherwise normal ECG Electronically Signed On 08-13-2025 18:53:06 CDT by Vivien Bustillo Procedure Note Vivien Bustillo MD - 08/13/2025 [place] [address] Test Date: 2025-08-12 Pat Name: [facility] Department: 12 Room: [address] [place] [address] Gender: Male Sign Hanger: [id number] : 1950 Requested By: Order Number: [id number] Reading MD: Vivien Bustillo Measurements Intervals [place] Rate: 54 P: 72 GA: 228 QRS: -19 QRSD: 90 T: 37 QT: 450 QTc: 426 Interpretive Statements Sinus bradycardia with 1st degree AV block with premature supraventricular complexes Otherwise normal ECG Electronically Signed On 08-13-2025 18:53:06 CDT by Vivien Bustillo us Hemal Harp MD ECG ORDERABLES Final Result INTERFACE SYSTEM Refer to clinic/hospital department * (ABNORMAL) SEDIMENTATION RATE (08/12/2025 6:51 PM CDT) ESR (SEDIMENTATION RATE) 46(H) 0 - 10 mm/Hr 08/12/2025 7:26 PM CDT [facility] Blood Venipuncture / Unknown 08/12/2025 6:51 PM CDT 08/12/2025 6:57 PM CDT us Hemal Harp MD HEMATOLOGY ORDERABLES Final Resu lt Performing Organization Address [facility] Co de Phone Number [facility] CLIA # [id number] [address] [id number] * (ABNORMAL) C-REACTIVE PROTEIN (08/12/2025 6:51 PM CDT) Pathologist [facility] CRP 27.3(H) 0.0 - 5.0 mg/L 08/12/2025 7:32 PM CDT [facility] Blood Venipuncture / Unknown 08/12/2025 6:51 PM CDT 08/12/2025 6:59 PM CDT us Hemal Harp MD CHEMISTRY ORDERABLES Final Resul t Performing Organization Address [facility] Co de Phone Number [facility] CLIA # [id number] [address] [address] * (ABNORMAL) COMPREHENSIVE METABOLIC PANEL (08/12/2025 6:51 PM CDT) Pathologist [facility] SODIUM 134(L) 136 - 145 mmol/L 08/12/2025 7:32 PM CDT [facility] POTASSIUM 4.5 3.5 - 5.1 mmol/L 08/12/2025 7:32 PM CDT [facility] CHLORIDE 103 98 - 107 mmol/L 08/12/2025 7:32 PM [facility] CO2 22 22 - 29 mmol/L 08/12/2025 7:32 PM [facility] CALCIUM 8.7(L) 8.8 - 10.2 mg/dL 08/12/2025 7:32 PM [facility] BUN 16 8 - 23 mg/dL 08/12/2025 7:32 PM [facility] CREATININE 1.31(H) 0.67 - 1.17 mg/dL 08/12/2025 7:32 PM [facility] Comment:The GFR result is no t clinically significant on patients <18 or >70 years of age. GLUCOSE 91 74 - 99 mg/dL 08/12/2025 7:32 PM [facility] TOTAL PROTEIN 6.1(L) 6.4 - 8.3 g/dL 08/12/2025 7:32 PM [facility] ALBUMIN 3.4(L) 3.5 - 5.2 g/dL 08/12/2025 7:32 PM [facility] BILIRUBIN TOTAL 0.3 0.0 - 1.0 mg/dL 08/12/2025 7:32 PM [facility] ALKALINE PHOSPHATASE 80 40 - 129 U/L 08/12/2025 7:32 PM [facility] AST 6(L) 10 - 50 U/L 08/12/2025 7:32 PM [facility] ALT 6 <=50 U/L 08/12/2025 7:32 PM [facility] GFR 57 mL/min/1. 73 sq meter 08/12/2025 7:32 PM [facility] Comment:eGFR calculated with 2020 CKD-EPI equation. Vegetarian diet, extremely high or low muscle mass, and may affect results. Cystatin C with Glomerular Filtration Rate is a suitable alternative for these patients. ANION GAP 9 9 - 20 mmol/L 08/12/2025 7:32 PM [facility] Blood Venipuncture / Unknown 08/12/2025 6:51 PM CDT 08/12/2025 6:59 PM CDT us Hemal Harp MD CHEMISTRY ORDERABLES Final Resul t [facility] # [id number] [address] [facility] [place] [address] * US DUPLEX ARTERIAL LEGS BILATERAL (07/15/2025 12:42 PM CDT) Anatomical Region Laterality Modality Lower Extremity Ultrasound us Stevei Davila MD US ORDERABLES Fin al Result from Last 3 Months Insurance * Guarantor: [employer] Hammonds (C) Account Type Relation to Patient Date of Phone Billing Address [facility] Other DEFAULT ADDRESS [address] [employer] * Guarantor: [facility] Sarah (C) Account Type Relation to Patient Date of Phone Billing Address [facility] Other DEFAULT ADDRESS [address] [place] [employer] Advance Directives For more information, please contact: [phone] * Full Code (Latest Code Status on File) Date Activated Date Inactivated Comments 08/17/2025 9:50 AM 08/21/2025 6:27 PM * Full Code Date Activated Date Inactivated Comments 08/12/2025 6:02 PM 08/17/2025 9:50 AM
--- OUTSIDE RECORDS SUMMARY | 2025-09-20 10:47 | XMS_ITS | Clinical Summary ---
Author Organization [facility] Facility Address [address] [place] [address] Care Team Providers Care Ad Copy Writer Name Role Phone Leatha Winslow Primary Care Provider [phone] Allergies Active Allergy Reactions Criticality Noted Date [...] Years Used Date Smoking Tobacco: Former Cigarettes 0 Q uit: 2021 Smokeless Tobacco: Never Tobacco [...] (EXTERNAL RESULT ENTRY) Routine 12/05/2022 3:48 PM HEATER ENGINEER HELPER from Last 3 Months or Most Recently Relevant to Health Maintenance Results * Hemoglobin A1C (12/05/2022 3:48 PM HEATER ENGINEER HELPER) Hemoglobin A1C 7.4 Blood specimen (specimen) Venous blood / Unknown 12/05/2022 3:48 PM HEATER ENGINEER HELPER us Historical Provider LAB BLOOD ORDERABLES Shannon l Result from Last 3 Months or Most Recently Relevant to Health Maintenance Insurance [employer] 1,2,3 ([employer]) Care Teams Ad Copy Writer Relationship Specialty Start Date End Date Goldy Leatha [address] [place] [address] PCP - General 01/26/23
--- NOTE | 2025-09-20 10:51 | W.ED.EXTPRO ---
HPI - Extremity Problem General: Chief complaint: Extremity Injury, Lower Stated complaint: right foot pain, odor Time Seen by Provider: 09/20/25 10:43 History of Present Illness: 75-year-old man with a history of atrial fibrillation, chronic anticoagulation on Eliquis, diabetes, diabetic neuropathy, COPD, and chronic wounds to his right foot for which he follows with podiatry who presents emergency room with worsening symptoms of his foot infection. He was seen in clinic couple of days ago but declined admission at that time because he had things he needed to do at home. He presents today for admission and antibiotics. Planning for surgery tomorrow. He says he is been having fevers. Some mild weakness. No altered mental status. Related Data Home Medications ?Medication ?Instructions ?Recorded ?Confirmed tamsulosin 0.4 mg capsule 0.8 mg PO BEDTIME 06/21/22 09/18/25 apixaban 5 mg tablet (Eliquis) 5 mg PO BID 03/20/23 09/18/25 albuterol sulfate 90 mcg/actuation 2 puff inhalation QID PRN 05/14/23 09/18/25 aerosol inhaler shortness of breath or wheezing furosemide 40 mg tablet 40 mg PO QAM 06/08/23 09/18/25 famotidine 20 mg tablet (Pepcid AC) 20 mg PO BID 11/16/24 09/18/25 gabapentin 100 mg capsule 100 mg PO TID 11/16/24 09/18/25 amiodarone 200 mg tablet (Pacerone) 200 mg PO DAILY 12/08/24 09/18/25 ipratropium 0.5 mg-albuterol 3 mg 3 ml inhalation QID PRN Shortness 12/08/24 09/18/25 (2.5 mg base)/3 mL nebulization Of Breath soln baclofen 10 mg tablet 10 mg PO BID PRN Pain 07/15/25 09/18/25 cholecalciferol (vitamin D3) 10 10 mcg PO DAILY 07/15/25 09/18/25 mcg (400 unit) tablet (Vitamin D3) metoprolol tartrate 25 mg tablet 25 mg PO BID 07/15/25 09/18/25 quetiapine 50 mg tablet 50 mg PO BEDTIME 07/15/25 09/18/25 rosuvastatin 10 mg sprinkle capsule 10 mg PO QPM 07/15/25 09/18/25 temazepam 15 mg capsule 15 mg PO BEDTIME PRN Sleep 07/15/25 09/18/25 Previous Rx's ?Medication ?Instructions ?Recorded acetaminophen 500 mg tablet 1,000 mg (2 x 500 mg) PO Q6H PRN 10/22/22 Pain 14 days #20 tabs potassium chloride 20 mEq 20 meq PO BID #60 tabs 05/02/23 tablet,extended release nitroglycerin 0.4 mg sublingual 0.4 mg sublingual Q5M PRN chest 05/15/23 tablet pain #25 tabs budesonide 160 mcg-glycopyr 9 2 inh inhalation BID #10.7 grams 02/26/24 mcg-formot 4.8 mcg/actuation HFA inhaler ([employer]) glucometer testing kit #1 ea 11/22/24 lancets #200 ea 11/22/24 strips #100 ea 11/22/24 Diabetic shoes #1 ea 05/20/25 diclofenac sodium 1 % topical gel 2 g topical QID 30 days #150 grams 06/16/25 (Voltaren Arthritis Pain) Cam boot to right #1 ea 07/14/25 metronidazole 500 mg tablet 500 mg PO BID 14 days #28 tabs 08/04/25 oxycodone 5 mg tablet 5 mg PO Q8H PRN pain 5 days #15 09/14/25 tabs hydrocodone 5 mg-acetaminophen 325 1 tab PO Q8H pain 7 days #21 tabs 09/16/25 mg tablet doxycycline hyclate 100 mg capsule 100 mg PO BID 7 days #14 caps 09/18/25 Allergies Allergy/AdvReac Type Severity Reaction Status Date / Time codeine (From AdvReac Mild ADR-Dizzine Verified 09/20/25 10:50 Tylenol-Codeine #3) ss Review of Systems Narrative: Constitutional symptoms: Negative except as documented in HPI. Skin symptoms: Negative except as documented in HPI. Eye symptoms: Negative except as documented in HPI. ENMT symptoms: Negative except as documented in HPI. Respiratory symptoms: Negative except as documented in HPI. Cardiovascular symptoms: Negative except as documented in HPI. Gastrointestinal symptoms: Negative except as documented in HPI. Genitourinary symptoms: Negative except as documented in HPI. Musculoskeletal symptoms: Negative except as documented in HPI. Neurologic symptoms: Negative except as documented in HPI. Psychiatric symptoms: Negative except as documented in HPI. Endocrine symptoms: Negative except as documented in HPI. PFSH ED PFSH: Medical History (Updated 09/20/25 @ 11:33 by Avani Segura MD) Encephalopathy Acute psychosis Wernicke encephalopathy Atrial fibrillation Diabetes mellitus Black tarry stools Melena Chronic anticoagulation Acute blood loss anemia Dehydration Shock Hypotension Atrial fibrillation with rapid ventricular response COPD (chronic obstructive pulmonary disease) Acute upper GI bleed Hyperglycemia COVID Hypoxemia COPD exacerbation Non-pressure 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 Dehiscence of amputation stump of right lower extremity Diabetic peripheral neuropathy associated with type 2 diabetes mellitus Surgical History 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 S/P foot surgery, right History of amputation of great toe Family History Denies family history of Cancer Social History Smoking and tobacco/nicotine status: current every day tobacco/nicotine user cigarettes Packs smoked per day: 1 Years cigarettes smoked: 53 [ Other cigarette details: Started at 1970] Physical Exam Narrative: EXAM NARRATIVE: General: Alert, no acute distress. Skin: Warm, dry. Head: Normocephalic, atraumatic. Neck: Supple, trachea midline. Eye: Extraocular movements are intact. Ears, nose, mouth and throat: mucosa moist. Cardiovascular: Regular, Normal peripheral perfusion. Respiratory: Lungs are clear to auscultation, respirations are non-labored, breath sounds are equal, Symmetrical chest wall expansion. Gastrointestinal: Soft, Nontender, Non distended Musculoskeletal: Patient has a large dressing over his right leg and foot. Has an obvious foot amputation that can be seen through the dressing. He does have a foul odor. This was just placed in clinic some going to leave it on for now. Neurological: Alert and oriented, No focal neurological deficit observed. Psychiatric: Cooperative, appropriate mood & affect. Course Vital Signs: Vital signs: Vital Signs Temperature 98.1 F 09/20/25 10:42 Pulse Rate 81 09/20/25 10:42 Respiratory Rate 17 09/20/25 10:42 Blood Pressure 152/65 09/20/25 10:53 Pulse Oximetry 96 09/20/25 10:42 Oxygen Delivery Me thod Room Air 09/20/25 10:42 MDM - Extremity (Nontraumatic) Medical Decision Making Medical decision making Patient's reason for coming to the emergency room: Worsening foot infection Social determinants: Patient is retired. I reviewed the patient's medical record. 75-year-old man with a history of atrial fibrillation, chronic anticoagulation on Eliquis, diabetes, diabetic neuropathy, COPD, and chronic wounds to his right foot for which he follows with podiatry I reviewed the patient's current home meds Patient is on Eliquis at home. Alternate historians: None Differential diagnosis: including but not limited to and based on the above HPI, review of systems and physical exam: This patient has quite evident diabetic wound infection. Basic lab work, blood cultures and inflammatory markers were sent to evaluate severity of infection. Also blood cultures since he has been reporting fevers. Orders placed to evaluate differential diagnosis based on the above differential, HPI and physical exam. I did order foot x-rays and ankle x-rays but these were not done at the time of admission. Lab Review: Laboratory results were reviewed and interpreted by myself the emergency room physician. No leukocytosis. Mild worsening of anemia with a hemoglobin of 7.5. Vitals are normal. No renal failure. ESR and CRP are quite elevated over his baseline. Lactic acid is normal. Assessment of risk: Level of risk: Moderate to high risk patient. Multiple comorbidities. Hospitalization considerations: Patient is being admitted. Planned surgery tomorrow. Reexamination: Patient remained stable. No increased work of breathing. No altered mental status. No focal motor deficits. Consultation: I spoke with Dr. Melendez. This is his patient. He will see the patient tomorrow and likely will do surgery tomorrow. N.p.o. after midnight. He agreed with antibiotic selection. Consultation: I spoke with Dr. Diamond who is on-call for the hospitalist service and agrees to admission. Assessment and plan: Diabetic foot infection ?Meropenem and Zyvox in the emergency room -I discussed the patient with the hospitalist on-call who is admitting the patient. - Discussed findings and plan with patient. Answered any questions. - All laboratory values were reviewed and interpreted personally by myself, the ER physician - All imaging was reviewed and interpreted personally by myself, the ER physician. - Evaluation and treatment of this problem were appropriate in the emergency setting Lab Data 09/20/25 10:54 09/20/25 10:54 Laboratory Results WBC 11.01 10^3/uL (3.29-11.43) 09/20/25 10:54 RBC 2.82 10^6/uL (3.85-5.65) L 09/20/25 10:54 Hgb 7.50 g/dL (11.27-16.99) L 09/20/25 10:54 Hct 23.5 % (37-53) L 09/20/25 10:54 MCV 83.3 fl (82-101) 09/20/25 10:54 MCH 26.6 pg (27-33) L 09/20/25 10:54 MCHC 31.9 g/dL (30-55) 09/20/25 10:54 RDW 16.9 % (12.1-15.1) H 09/20/25 10:54 Plt Count 480 10^3/cmm (157-399) H 09/20/25 10:54 MPV 8.8 fL (7.4-10.4) 09/20/25 10:54 Neut % (Auto) 79.2 % 09/20/25 10:54 Lymph % (Auto) 10.7 % 09/20/25 10:54 Conway % (Auto) 5.8 % 09/20/25 10:54 Eos % (Auto) 3.3 % 09/20/25 10:54 Baso % (Auto) 0.5 % 09/20/25 10:54 Neut # (Auto) 8.73 10^3/uL (1.8-7.7) H 09/20/25 10:54 Lymph # (Auto) 1.2 10^3/uL (0.8-4.8) 09/20/25 10:54 Conway # (Auto) 0.6 10^3/uL (0.2-0.9) 09/20/25 10:54 Eos # (Auto) 0.4 10^3/uL (0.0-0.8) 09/20/25 10:54 Baso # (Auto) 0.1 10^3/uL (0.0-0.1) 09/20/25 10:54 Nucleated RBC % (auto) 0 % 09/20/25 10:54 Nucleated RBCs # 0.0 /100WBC 09/20/25 10:54 ESR 63 mm/hr (0-10) H 09/20/25 10:54 Sodium 138 mmol/L (136-145) 09/20/25 10:54 Potassium 3.3 mmol/L (3.5-5.1) L 09/20/25 10:54 Chloride 105 mmol/L (98-107) 09/20/25 10:54 Carbon Dioxide 22 mmol/L (22-29) 09/20/25 10:54 Anion Gap 14.3 (5-19) 09/20/25 10:54 BUN 21 mg/dL (8-23) 09/20/25 10:54 Creatinine 1.1 mg/dL (0.7-1.2) 09/20/25 10:54 GFR Calculation Not Reportable 09/20/25 10:54 Glucose 115 mg/dL (65-115) 09/20/25 10:54 Calculated Osmolality 290 mOsm/kg (285-295) 09/20/25 10:54 Lactic Acid 1.0 mmol/L (0.5-2.2) 09/20/25 10:54 Calcium 8.5 mg/dL (8.5-10.5) 09/20/25 10:54 Total Bilirubin 0.2 mg/dL (0.15-1.2) 09/20/25 10:54 AST 6 U/L (0-40) 09/20/25 10:54 ALT 6 U/L (0-41) 09/20/25 10:54 Alkaline Phosphatase 89 U/L (40-130) 09/20/25 10:54 C-Reactive Protein 147.3 mg/L (0.0-4.9) H 09/20/25 10:54 Total Protein 6.4 g/dL (6.6-8.7) L 09/20/25 10:54 Albumin 2.9 g/dL (3.5-5.2) L 09/20/25 10:54 Globulin 3.5 g/dL (1.3-4.6) 09/20/25 10:54 XR interpretation done by ED provider, pending radiology final review Discharge Plan Discharge Patient Disposition: Admitted As Inpatient Clinical Impression: Diabetic foot infection Condition: Stable Coding Level of Care Code ED Rigging Supervisor for Len Davenport
[2025-09-20 10:59] LABS: Hematocrit 23.5 % (37-53); Hemoglobin 7.50 g/dL (11.27-16.99); Mean Corpuscular HGB Conc 31.9 g/dL (30-55); Mean Corpuscular Hemoglobin 26.6 pg (27-33); Mean Corpuscular Volume 83.3 fl (82-101); Nucleated Red Blood Cells % 0 %; Platelet Count 480 10^3/cmm (157-399); Red Blood Count 2.82 10^6/uL (3.85-5.65); White Blood Count 11.01 10^3/uL (3.29-11.43)
[2025-09-20 11:15] LABS: Lactic Sepsis W/Reflex 1.0 mmol/L (0.5-2.2)
[2025-09-20 11:16] LABS: Alanine Aminotransferase 6 U/L (0-41); Albumin Level 2.9 g/dL (3.5-5.2); Alkaline Phosphatase 89 U/L (40-130); Anion Gap 14.3 (5-19); Aspartate Amino Transferase 6 U/L (0-40); Blood Urea Nitrogen 21 mg/dL (8-23); Calcium 8.5 mg/dL (8.5-10.5); Carbon Dioxide 22 mmol/L (22-29); Chloride 105 mmol/L (98-107); Globulin 3.5 g/dL (1.3-4.6); Glucose 115 mg/dL (65-115); Osmolality Calculated 290 mOsm/kg (285-295); Potassium 3.3 mmol/L (3.5-5.1); Sodium 138 mmol/L (136-145); Total Protein 6.4 g/dL (6.6-8.7)
[2025-09-20] MEDS: linezolid premix 600 MG/300 ML PREMIX 300 MG IV (11:38)
--- NOTE | 2025-09-20 11:43 | PM.CONSULT ---
Providers/Reason For Consult Consulting Physician/Specialty*: Zachary Melendez D.P.M./podiatry Reason for Consult*: Diabetic ulcerations with infection right lower extremity. Primary Care Provider: MILADIS Leblanc History of Present Illness History of Present Illness Jace Christie is a 75 year old male presents to the emergency department with infected ulcerations right lower extremity, 1 week duration of malaise and nausea, no subjective fevers or vomiting. Patient has a history of right transmetatarsal potation secondary to osteomyelitis. History of peripheral arterial disease with attempted revascularization in [place] last month. Started doxycycline 100 mg twice daily September 18. He presents as a result of my recommendation to come to the emergency department for admission to hospital service for surgical intervention for his right lower extremity wounds. Review of Systems General: Reports: 10 or more systems reviewed and unremarkable except in HPI and below Const: Denies: fever(s) or chills Eyes: Denies: change in vision Card: Denies: chest pain or palpitations Resp: Denies: dyspnea or productive cough GI: Denies: abdominal pain, nausea or vomiting : Denies: flank pain Musc: Reports: extremity swelling, joint stiffness and deformity Skin/Breast: Reports: erythema, sores, changes in skin color, dry skin, nail changes and change in hair Neuro: Reports: numbness in extremities, sensory changes and difficulty walking Psych: Denies: suicidal ideation Endo: Denies: change in body appearance Merrill/Lymph: Denies: tender lymph nodes Medications/Allergies Home Medications ?Medication ?Instructions ?Recorded ?Confirmed ?Last Taken ?Type tamsulosin 0.4 mg capsule 0.8 mg PO BEDTIME 06/21/22 09/18/25 07/14/25 History acetaminophen 500 mg tablet 1,000 mg (2 x 500 mg) PO Q6H PRN 10/22/22 09/20/25 09/19/25 21:00 Rx Pain 14 days #20 tabs apixaban 5 mg tablet (Eliquis) 5 mg PO BID 03/20/23 09/20/25 09/19/25 20:00 History potassium chloride 20 mEq 20 meq PO BID #60 tabs 05/02/23 09/18/25 07/14/25 Rx tablet,extended release albuterol sulfate 90 mcg/actuation 2 puff inhalation QID PRN 05/14/23 09/18/25 07/13/25 History aerosol inhaler shortness of breath or wheezing nitroglycerin 0.4 mg sublingual 0.4 mg sublingual Q5M PRN chest 05/15/23 09/18/25 Unknown Rx tablet pain #25 tabs furosemide 40 mg tablet 40 mg PO QAM 06/08/23 09/18/25 07/14/25 History budesonide 160 mcg-glycopyr 9 2 inh inhalation BID #10.7 grams 02/26/24 09/18/25 07/15/25 Rx mcg-formot 4.8 mcg/actuation HFA inhaler (Breztri Aerosphere) famotidine 20 mg tablet (Pepcid AC) 20 mg PO BID 11/16/24 09/18/25 07/14/25 History gabapentin 100 mg capsule 100 mg PO TID 11/16/24 09/18/25 07/14/25 History glucometer testing kit #1 ea 11/22/24 09/18/25 Unknown Rx lancets #200 ea 11/22/24 09/18/25 Unknown Rx strips #100 ea 11/22/24 09/18/25 Unknown Rx amiodarone 200 mg tablet (Pacerone) 200 mg PO DAILY 12/08/24 09/18/25 07/14/25 History ipratropium 0.5 mg-albuterol 3 mg 3 ml inhalation QID PRN Shortness 12/08/24 09/18/25 Unknown History (2.5 mg base)/3 mL nebulization Of Breath soln Diabetic shoes #1 ea 05/20/25 09/18/25 Unknown Rx diclofenac sodium 1 % topical gel 2 g topical QID 30 days #150 grams 06/16/25 09/18/25 Unknown Rx (Voltaren Arthritis Pain) Cam boot to right #1 ea 07/14/25 09/18/25 Unknown Rx baclofen 10 mg tablet 10 mg PO BID PRN Pain 07/15/25 09/18/25 Unknown History cholecalciferol (vitamin D3) 10 10 mcg PO DAILY 07/15/25 09/18/25 07/14/25 History mcg (400 unit) tablet (Vitamin D3) metoprolol tartrate 25 mg tablet 25 mg PO BID 07/15/25 09/18/25 07/14/25 History quetiapine 50 mg tablet 50 mg PO BEDTIME 07/15/25 09/18/25 Unknown History rosuvastatin 10 mg sprinkle capsule 10 mg PO QPM 07/15/25 09/18/25 07/14/25 History temazepam 15 mg capsule 15 mg PO BEDTIME PRN Sleep 07/15/25 09/18/25 Unknown History metronidazole 500 mg tablet 500 mg PO BID 14 days #28 tabs 08/04/25 09/18/25 Unknown Rx oxycodone 5 mg tablet 5 mg PO Q8H PRN pain 5 days #15 09/14/25 09/18/25 Unknown Rx tabs hydrocodone 5 mg-acetaminophen 325 1 tab PO Q8H pain 7 days #21 tabs 09/16/25 09/18/25 Unknown Rx mg tablet doxycycline hyclate 100 mg capsule 100 mg PO BID 7 days #14 caps 09/18/25 09/18/25 Unknown Rx Allergies Allergy/AdvReac Type Severity Reaction Status Date / Time codeine (From AdvReac Mild ADR-Dizzine Verified 09/20/25 10:50 Tylenol-Codeine #3) ss Current Medications Generic Name Dose Route Start Last Admin Trade Name Freq PRN Reason Stop Dose Admin Linezolid 600 mg in 300 mls @ 300 mls/hr 09/20/25 10:45 09/20/25 11:38 Zyvox Premix IV 09/20/25 11:44 300 mls/hr ONCE ONE Administration Protocol PFSH Acute PFSH: Medical History (Updated 09/20/25 @ 12:41 by Zachary Melendez DPM) COPD (chronic obstructive pulmonary disease) Atrial fibrillation Diabetes mellitus Chronic anticoagulation Encephalopathy Acute psychosis Wernicke encephalopathy Black tarry stools Melena Acute blood loss anemia Dehydration Shock Hypotension Atrial fibrillation with rapid ventricular response Acute upper GI bleed Hyperglycemia COVID Hypoxemia COPD exacerbation Non-pressure 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 Dehiscence of amputation stump of right lower extremity Diabetic peripheral neuropathy associated with type 2 diabetes mellitus Surgical History 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 S/P foot surgery, right History of amputation of great toe Family History Denies family history of Cancer Social History Smoking and tobacco/nicotine status: current every day tobacco/nicotine user cigarettes Packs smoked per day: 1 Years cigarettes smoked: 53 [ Other cigarette details: Started at 1969] Vitals/I&O/Wt Last Vital Signs Temp 98.1 F 09/20/25 10:42 Pulse 81 09/20/25 10:42 Resp 17 09/20/25 10:42 BP 152/65 09/20/25 10:53 Pulse Ox 96 09/20/25 10:42 O2 Del Method Room Air 09/20/25 10:42 Weight last 48 hrs Weight 170 lb Physical Exam Narrative: GENERAL: Patient is alert and oriented ?3 and in no acute distress. The following is a focused right lower extremity exam. VASCULAR: Dorsalis pedis and posterior tibial arteries diminished. NEUROLOGICAL: Protective sensation diminished. DERMATOLOGICAL: Rubor to the right medial forefoot, dehiscence noted with sutures pulled through at the amputation site no purulence, dehiscence is down to myofascial layer. MUSCULOSKELETAL: Status post partial first ray amputation right foot. Data 09/20/25 10:54 09/20/25 10:54 Micro: Microbiology 09/20/25 10:55 Blood Culture - Preliminary Blood SPECIMEN COLLECTED 09/20/25 10:54 Blood Culture - Preliminary Blood SPECIMEN COLLECTED A&P Assessment and plan 1. Diabetic peripheral neuropathy associated with type 2 diabetes mellitus: 2. Cellulitis of right lower extremity: 3. 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 Peripheral arterial disease: Plan: Patient admitted to hospital service for cellulitis right lower extremity with ulcerations to the right lower extremity exposed to necrotic tendon. Patient wishes to pursue aggressive limb salvage efforts is not ready to proceed with below-knee amputation yet. He had a recent revascularization attempt to the right lower extremity done at [facility]. - N.p.o. - Scheduled for extensive debridement to the right lower extremity will include excision of tibialis anterior and Achilles tendons scheduled for 2:00 PM today. Patient has been n.p.o. since 10 PM last night. - Empiric IV antibiotics per hospitalist team - Anticipate multiple debridements and possible application of biologic graft with wound VAC pending his response to surgical and medical management of his current right lower extremity infection. Podiatry will follow. 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
--- NOTE | 2025-09-20 11:44 | PM.HP ---
Providers/Chief Complaint Primary Care Provider: MILADIS Leblanc Chief Complaint: right foot pain, odor History of Present Illness Jace Christie is a 75 year old male paroxysmal atrial fibrillation on chronic anticoagulation with Eliquis last dosing last night, diabetes mellitus type 2 with diabetic neuropathy, COPD, chronic wounds to his right foot was seen in the ER by Dr. Segura who states that the patient came in due to worsening symptoms of his right foot infection. Patient is managed outpatient by shingles roofer helper Dr. Melendez who is requested the patient be kept NPO, plans for I&D later today. He stated that this would be an attempt for limb salvage and this patient would have a prolonged hospital admission. Reached out to infectious disease who graciously agrees to consultation and antibiotic management. Patient states sore mouth and pain with swallowing, right foot/leg pain, and fatigue. Patient denies current chest pain, nausea, vomiting, diarrhea, abdominal pain, recent falls, dark or tarry stools, or syncope. Patient does state history of COPD with breathing at his baseline, room air saturation greater than 90%. Patient is agreeable to admission with surgical interventions and management, IV antibiotic therapy, and medical management. All questions and concerns addressed with the patient at bedside today. Review of Systems General: Reports: 10 or more systems reviewed and unremarkable except in HPI and below Medications/Allergies Home Medications ?Medication ?Instructions ?Recorded ?Confirmed ?Last Taken ?Type tamsulosin 0.4 mg capsule 0.8 mg PO BEDTIME 06/21/22 09/18/25 07/14/25 History acetaminophen 500 mg tablet 1,000 mg (2 x 500 mg) PO Q6H PRN 10/22/22 09/20/25 09/19/25 21:00 Rx Pain 14 days #20 tabs apixaban 5 mg tablet (Eliquis) 5 mg PO BID 03/20/23 09/20/25 09/19/25 20:00 History potassium chloride 20 mEq 20 meq PO BID #60 tabs 05/02/23 09/18/25 07/14/25 Rx tablet,extended release albuterol sulfate 90 mcg/actuation 2 puff inhalation QID PRN 05/14/23 09/18/25 07/13/25 History aerosol inhaler shortness of breath or wheezing nitroglycerin 0.4 mg sublingual 0.4 mg sublingual Q5M PRN chest 05/15/23 09/18/25 Unknown Rx tablet pain #25 tabs furosemide 40 mg tablet 40 mg PO QAM 06/08/23 09/18/25 07/14/25 History budesonide 160 mcg-glycopyr 9 2 inh inhalation BID #10.7 grams 02/26/24 09/18/25 07/15/25 Rx mcg-formot 4.8 mcg/actuation HFA inhaler (Breztri Aerosphere) famotidine 20 mg tablet (Pepcid AC) 20 mg PO BID 11/16/24 09/18/25 07/14/25 History gabapentin 100 mg capsule 100 mg PO TID 11/16/24 09/18/25 07/14/25 History glucometer testing kit #1 ea 11/22/24 09/18/25 Unknown Rx lancets #200 ea 11/22/24 09/18/25 Unknown Rx strips #100 ea 11/22/24 09/18/25 Unknown Rx amiodarone 200 mg tablet (Pacerone) 200 mg PO DAILY 12/08/24 09/18/25 07/14/25 History ipratropium 0.5 mg-albuterol 3 mg 3 ml inhalation QID PRN Shortness 12/08/24 09/18/25 Unknown History (2.5 mg base)/3 mL nebulization Of Breath soln Diabetic shoes #1 ea 05/20/25 09/18/25 Unknown Rx diclofenac sodium 1 % topical gel 2 g topical QID 30 days #150 grams 06/16/25 09/18/25 Unknown Rx (Voltaren Arthritis Pain) Cam boot to right #1 ea 07/14/25 09/18/25 Unknown Rx baclofen 10 mg tablet 10 mg PO BID PRN Pain 07/15/25 09/18/25 Unknown History cholecalciferol (vitamin D3) 10 10 mcg PO DAILY 07/15/25 09/18/25 07/14/25 History mcg (400 unit) tablet (Vitamin D3) metoprolol tartrate 25 mg tablet 25 mg PO BID 07/15/25 09/18/25 07/14/25 History quetiapine 50 mg tablet 50 mg PO BEDTIME 07/15/25 09/18/25 Unknown History rosuvastatin 10 mg sprinkle capsule 10 mg PO QPM 07/15/25 09/18/25 07/14/25 History temazepam 15 mg capsule 15 mg PO BEDTIME PRN Sleep 07/15/25 09/18/25 Unknown History metronidazole 500 mg tablet 500 mg PO BID 14 days #28 tabs 08/04/25 09/18/25 Unknown Rx oxycodone 5 mg tablet 5 mg PO Q8H PRN pain 5 days #15 09/14/25 09/18/25 Unknown Rx tabs hydrocodone 5 mg-acetaminophen 325 1 tab PO Q8H pain 7 days #21 tabs 09/16/25 09/18/25 Unknown Rx mg tablet doxycycline hyclate 100 mg capsule 100 mg PO BID 7 days #14 caps 09/18/25 09/18/25 Unknown Rx Allergies Allergy/AdvReac Type Severity Reaction Status Date / Time codeine (From AdvReac Mild ADR-Dizzine Verified 09/20/25 10:50 Tylenol-Codeine #3) ss PFSH Acute PFSH: Medical History (Updated 09/20/25 @ 12:41 by Zachary Melendez DPM) COPD (chronic obstructive pulmonary disease) Atrial fibrillation Diabetes mellitus Chronic anticoagulation Encephalopathy Acute psychosis Wernicke encephalopathy Black tarry stools Melena Acute blood loss anemia Dehydration Shock Hypotension Atrial fibrillation with rapid ventricular response Acute upper GI bleed Hyperglycemia COVID Hypoxemia COPD exacerbation Non-pressure 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 Dehiscence of amputation stump of right lower extremity Diabetic peripheral neuropathy associated with type 2 diabetes mellitus Surgical History 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 S/P foot surgery, right History of amputation of great toe Family History Denies family history of Cancer Social History Smoking and tobacco/nicotine status: current every day tobacco/nicotine user cigarettes Packs smoked per day: 1 Years cigarettes smoked: 53 [ Other cigarette details: Started at 1970] Vitals/I&O/Wt Last Vital Signs Temp 98.1 F 09/20/25 10:42 Pulse 81 09/20/25 10:42 Resp 17 09/20/25 10:42 BP 152/65 09/20/25 10:53 Pulse Ox 96 09/20/25 10:42 O2 Del Method Room Air 09/20/25 10:42 Weight last 48 hrs Weight 77.111 kg Physical Exam Const: COMMON NORMALS: no acute distress and patient oriented x3 HENMT: COMMON NORMALS: normocephalic and Normal external nose present THROAT: posterior oropharynx abnormal erythema Eye: COMMON NORMALS: Equal, round and reactive pupils present Resp: COMMON NORMALS: normal respiratory effort, No retractions, No use of accessory muscles and clear to auscultation bilaterally AUSCULTATION: clear to auscultation bilaterally Cardio: COMMON NORMALS: regular rate, regular rhythm, S1 normal heart sound present and S2 normal heart sound present RATE: regular rate RHYTHM: regular rhythm HEART SOUNDS: S1 normal heart sound present and S2 normal heart sound present GI: COMMON NORMALS: Normal to inspection, nondistended, normoactive bowel sounds present and non-tender Extremity: COMMON NORMALS: no pedal edema NARRATIVE EXTREMITY EXAM: Right foot wrapped, odorous drainage - did not visualize wound, right leg with erythema up to knee Neuro: COMMON NORMALS: patient oriented x3, CN's II-XII intact bilaterally and moves all extremities Psych: COMMON NORMALS: mental status grossly normal Data 09/20/25 10:54 09/20/25 10:54 Micro: Microbiology 09/20/25 10:55 Blood Culture - Preliminary Blood SPECIMEN COLLECTED 09/20/25 10:54 Blood Culture - Preliminary Blood SPECIMEN COLLECTED A&P Assessment and plan 1. Chronic ulcer of right foot with necrosis of bone: 2. Peripheral vascular disease: 3. Diabetic foot infection: 4. Permanent atrial fibrillation: 5. Diabetes mellitus: 6. Chronic anticoagulation: 7. Centrilobular emphysema: Plan: Chronic right foot wound with tendon exposure - Managed by Viticulture Teacher , appreciate continued management inpatient - Admitting WBC 1101, CRP 147.3 - Blood Culture x 2 pending - Pending wound cultures from surgery - ER Provider gave Zyvox and Merrem - Greatly appreciate consultation and antibiotic management with - NPO, plans for I&D this afternoon - Noted that patient is expected a prolonged stay in the hospital with plans to go back to the OR later this week DM-II Diabetic Neuropathy - Pending A1C - Medium dose SSI, POC - Continue Gabapentin - Monitor PVD Hyperlipidemia - Continue cardio-protective medications Atrial Fibrillation Chronic Anticoagulation - Currently in NSR, rate controlled - Holding Eliquis during hospitalization, VTE with SQ lovenox - Continue Metoprolol and amiodarone COPD - Not in exacerbation - Resume home inhaler - PRN DuoNeb - Supportive measures GERD - Takes Pepcid at home - PPI Oral Candidiasis - Oral Nystatin QID BPH - Continue Tamsulosin VTE PPX: Full dose lovenox holding Eliquis GI PPX: PPI Code Status: Full Code PDMP PDMP Reviewed: Not Reviewed Attestations Medical Necessity Statement*: Expectation for prolonged hospitalization greater than 2 midnights for right wound infection with tendon exposure need for continued surgical management with podiatry with plans of more than 1 surgical intervention, antibiotic management with infectious disease, and complex medical management. and High Time for a total of 78 minutes, includes reviewing past or interval history, examining/interviewing patient, placing orders, counseling patient/family/other support, updating patient/family/other support, discussing plan of care with staff, communicating with other healthcare providers, documenting encounter and coordinating care Diagnoses Chronic ulcer of right foot with necrosis of bone L97.514 Peripheral vascular disease I73.9 Diabetic foot infection E11.628; L08.9 Permanent atrial fibrillation I48.21 Diabetes mellitus E11.9 Chronic anticoagulation Z79.01 Centrilobular emphysema J43.2
--- NOTE | 2025-09-20 11:49 | XRR_ITS ---
PROCEDURE INFORMATION: Exam: XR Right Ankle Exam date and time: 09/20/2025 11:57 AM Age: 75 years old Clinical indication: Pain; Right; Prior surgery; Surgery date: 6+ months; Surgery type: Partial amputation of RT foot, RT ankle orif; Ulcer to end of partially amputated RT foot; Additional info: Foot infection TECHNIQUE: Imaging protocol: Radiologic exam of the right ankle. Views: 3 or more views. COMPARISON: CT foot RT wo con* [id number] 07/14/2025 4:29 PM FINDINGS: Tubes, catheters and devices: Patient is status post surgical fixation of fracture of the lateral malleoli with intramedullary francois wire device Bones/joints: Patient is status post transmetatarsal amputation from the 2nd to 5th toes and amputation at the tarsometatarsal joint of the 1st toe. There are also findings of prior fixation of medial malleolar with surgical screw K wires present. Soft tissues: There is generalized soft tissue swelling at the ankle foot. XR/XR ankle RT min 3V* [id number] IMPRESSION: Patient is status post amputation at the 1st tarsometatarsal joint level with generalized soft tissue swelling of the foot Postoperative changes as above
--- NOTE | 2025-09-20 13:18 | P.HPUD_ITS ---
Surgery/Procedure H&P Update DATE OF PROCEDURE: September 20, 2025 DATE H&P PERFORMED: 09/20/25 H&P UPDATE INFORMATION: I have reviewed H&P completed within last 30 days, I have examined patient prior to procedure, No changes to prior documentation, H&P is in [facility] EMR on date indicated and Risks and benefits of the procedure reviewed PREOP DIAGNOSIS: Diabetic foot infection right lower extremity. PLANNED PROCEDURE: Operation Date: 09/20/25 14:10 Proposed Procedures p Incision And Drainage(Right) - Zachary Melendez DPM
--- NOTE | 2025-09-20 13:31 | W.PM.BPON ---
Date of Procedure: 12/28/23 Surgeon: Zachary Melendez DPM Radio Antenna Installer(s): Domenico Procedure(s) performed: Extensive incision and debridement right lower extremity ulcerations with excision of tibialis anterior and Achilles tendon due to tendon necrosis. Findings of the procedure(s): Devitalized tibialis anterior tendon and devitalized Achilles tendon with purulent drainage. Estimated blood loss: 10 mL Specimen(s) removed: Right tibialis anterior tendon and right Achilles tendon sent to microbiology for Gram stain, culture and sensitivity. Post-operative diagnosis: Right lower extremity cellulitis and diabetic ulcerations exposed to tendon.
--- NOTE | 2025-09-20 13:35 | P.OP_ITS ---
Operative Report Date of procedure: September 20, 2025 Pre-op diagnosis: Diabetes with peripheral neuropathy Peripheral arterial disease Wound exposed to tendon right ankle Wound exposed to tendon right foot Cellulitis Post-op diagnosis: Same Procedure done: Incision and debridement multiple areas right lower extremity including excision of tibialis anterior and Achilles tendon. CPT code 41090 Implants: None Specimens removed/disposition: Devitalized right tibialis anterior tendon and Achilles tendon sent as 2 separate specimen to microbiology for Gram stain culture and sensitivity Pathology: None Surgeon: Zachary Melendez DPM Adult Education Teacher: Domenico Estimated blood loss: 10 mL 17 minutes IV fluids: See intraoperative documentation Urine output: No urine output Complications: None Brief History: Jace Christie is a 75 year old male presents to the emergency department with infected ulcerations right lower extremity, 1 week duration of malaise and nausea, no subjective fevers or vomiting. Patient has a history of right transmetatarsal potation secondary to osteomyelitis. History of peripheral arterial disease with attempted revascularization in [place] last month. Started doxycycline 100 mg twice daily September 18. He presents as a result of my recommendation to come to the emergency department for admission to hospital service for surgical intervention for his right lower extremity wounds. Procedure: Under mild sedation the patient was brought to the operating room and remained on the gurney in supine position. A timeout was performed. Anesthesia was then administered by the anesthesia service. Well-padded pneumatic tourniquet applied to the right high calf. Right lower extremity was scrubbed, prepped and draped utilizing normal aseptic technique. Right lower extremity then elevated and tourniquet inflated to 250 mmHg. Attention was directed the right lower extremity where cellulitis was appreciated anteriorly and posteriorly to the right ankle, a section of the tibialis anterior tendon almost in its entirety was exposed measuring 12 cm long at the anterior leg down to insertion to the right foot the tendon measured 2 cm wide due to devitalized nature had dark yellow and green and ventura discoloration throughout the tendon indicative of necrosis, tendon was sharply excised with pickups and curved Glynn scissors at its most proximal and distal margin. Extensive wound at the anterior leg extending across the anterior ankle and foot measured 15 cm in length and 4 cm in width with 1 cm depth down to bone. Able to visualize the medial cuneiform which did not appear to be devitalized had appropriate color and density. The anterior ankle incision was then debrided of all devitalized soft tissue down to muscle and fascial layer utilizing pickups and a 15 blade. Right anterior leg ankle and foot wound was then irrigated with copious amounts of sterile send solution dressing consisting of Xeroform, Surgicel and topical TXA for hemostasis. Attention was then directed to the right Achilles tendon there was a posterior heel wound extending down to the Achilles tendon which appeared devitalized with ventura, green, dark yellow and even black discoloration within the tendon which was thickened due to devitalized nature tendon was excised from insertion to myotendinous juncture proximally and passed from the operative field, sharp and excisional debridement down to myofascial layer of the right posterior leg after tendon was excised with postdebridement wound measurements 8 cm x 2 cm x 2 cm. Irrigation with copious amounts of sterile send solution followed by Xeroform, Surgicel and topical TXA for hemostasis. Diseased and devitalized tibialis anterior tendon section and Achilles tendon section sent to microbiology for Gram stain, culture and sensitivity. Both incisions were then dressed with 4 x 4 gauze, Kerlix, ABD pad and Coban. Tourniquet was deflated and a hyperemic response is noted to the distal TMA site to the right foot. Patient tolerated the procedure and anesthesia well and was transferred to the PACU with vital signs stable and vascular status intact. Following a period of postoperative monitoring he will be transferred to the [facility] to continue empiric IV antibiotics. Anticipate further surgical debridement and application of biologic graft during this hospitalization once indicated.
--- NOTE | 2025-09-20 14:10 | ANES.PREANE2 ---
Pre-Anesthetic Assessment Height/Weight: Height 6 ft 2 in Weight 170 lb Temp Pulse Resp BP Pulse Ox O2 Del Method 98.6 F 72 18 152/66 97 Room Air 09/20/25 12:55 09/20/25 12:55 09/20/25 12:55 09/20/25 12:55 09/20/25 12:55 09/20/25 12:55 Preop Diagnosis: Diabetic foot infection right lower extremity. Operation Date: 09/20/25 14:10 Proposed Procedures p Incision And Drainage(Right) - Zachary Melendez DPM Was Beta Flor taken within 24 hours: Yes Was Clonidine taken within 24 hours: N/A Social No alcohol and No tobacco Exam alert, oriented x 3 and clear to auscultation bilaterally Airway Submandibular: within normal limits Cervical ROM: within normal limits Mallampati: Class III Comments: Comments: Teeth out Anesthetic Plan ASA status: 4 Anesthesia: MAC Other: Patient here for cellulitis of the foot, very well-known to our service History of type II DM, no insulin GERD, controlled with Pepcid Hypertension on metoprolol Wheezing on auscultation, DuoNeb ordered Labs reviewed from today, K+ 3.3. EKG showing A-fib, patient is on chronic amiodarone Plan for MAC anesthesia with local view surgeon Medications/Allergies Home Medications ?Medication ?Instructions ?Recorded ?Confirmed ?Last Taken ?Type tamsulosin 0.4 mg capsule 0.8 mg PO BEDTIME 06/21/22 09/20/25 09/19/25 19:00 History acetaminophen 500 mg tablet 1,000 mg (2 x 500 mg) PO Q6H PRN 10/22/22 09/20/25 09/19/25 21:00 Rx Pain 14 days #20 tabs apixaban 5 mg tablet (Eliquis) 5 mg PO BID 03/20/23 09/20/25 09/19/25 20:00 History potassium chloride 20 mEq 20 meq PO BID #60 tabs 05/02/23 09/20/25 09/19/25 Rx tablet,extended release albuterol sulfate 90 mcg/actuation 2 puff inhalation QID PRN 05/14/23 09/20/25 07/13/25 History aerosol inhaler shortness of breath or wheezing nitroglycerin 0.4 mg sublingual 0.4 mg sublingual Q5M PRN chest 05/15/23 09/20/25 Unknown Rx tablet pain #25 tabs furosemide 40 mg tablet 40 mg PO QAM 06/08/23 09/20/25 09/20/25 04:30 History budesonide 160 mcg-glycopyr 9 2 inh inhalation BID #10.7 grams 02/26/24 09/20/25 09/20/25 04:35 Rx mcg-formot 4.8 mcg/actuation HFA inhaler (Breztri Aerosphere) gabapentin 100 mg capsule 100 mg PO TID 11/16/24 09/20/25 09/19/25 History glucometer testing kit #1 ea 11/22/24 09/20/25 Unknown Rx lancets #200 ea 11/22/24 09/20/25 Unknown Rx strips #100 ea 11/22/24 09/20/25 Unknown Rx amiodarone 200 mg tablet (Pacerone) 200 mg PO DAILY 12/08/24 09/20/25 09/19/25 History ipratropium 0.5 mg-albuterol 3 mg 3 ml inhalation QID PRN Shortness 12/08/24 09/20/25 Unknown History (2.5 mg base)/3 mL nebulization Of Breath soln Diabetic shoes #1 ea 05/20/25 09/20/25 Unknown Rx diclofenac sodium 1 % topical gel 2 g topical QID 30 days #150 grams 06/16/25 09/20/25 Unknown Rx (Voltaren Arthritis Pain) Cam boot to right #1 ea 07/14/25 09/20/25 Unknown Rx baclofen 10 mg tablet 10 mg PO BID PRN Pain 07/15/25 09/20/25 Unknown History cholecalciferol (vitamin D3) 10 10 mcg PO DAILY 07/15/25 09/20/25 09/19/25 History mcg (400 unit) tablet (Vitamin D3) temazepam 15 mg capsule 15 mg PO BEDTIME PRN Sleep 07/15/25 09/20/25 Unknown History oxycodone 5 mg tablet 5 mg PO Q8H PRN pain 5 days #15 09/14/25 09/20/25 09/14/25 Rx tabs hydrocodone 5 mg-acetaminophen 325 1 tab PO Q8H pain 7 days #21 tabs 09/16/25 09/20/25 09/20/25 04:30 Rx mg tablet doxycycline hyclate 100 mg capsule 100 mg PO BID 7 days #14 caps 09/18/25 09/20/25 09/20/25 04:30 Rx ibuprofen 200 mg tablet (Advil) 400 mg PO Q6H PRN Fever Or Pain 09/20/25 09/20/25 09/19/25 21:00 History metoprolol tartrate 50 mg tablet 25 mg PO BID 09/20/25 09/20/25 09/19/25 History rosuvastatin 20 mg tablet 10 mg PO DAILY 09/20/25 09/20/25 09/19/25 19:00 History Allergies Allergy/AdvReac Type Severity Reaction Status Date / Time codeine (From AdvReac Mild ADR-Dizzine Verified 09/20/25 10:50 Tylenol-Codeine #3) ss Current Medications Generic Name Dose Route Start Last Admin Trade Name Freq PRN Reason Stop Dose Admin Sodium Chloride 1,000 mls @ 30 mls/hr 09/20/25 13:15 09/20/25 13:11 Sodium Chloride 0.9% IV 09/21/25 13:14 30 mls/hr .Q24H JOSÉ MIGUEL Administration PFSH Anesthesia Medical History (Updated 09/20/25 @ 12:41 by Zacahry Melendez DPM) COPD (chronic obstructive pulmonary disease) Atrial fibrillation Diabetes mellitus Chronic anticoagulation Encephalopathy Acute psychosis Wernicke encephalopathy Black tarry stools Melena Acute blood loss anemia Dehydration Shock Hypotension Atrial fibrillation with rapid ventricular response Acute upper GI bleed Hyperglycemia COVID Hypoxemia COPD exacerbation Non-pressure 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 Dehiscence of amputation stump of right lower extremity Diabetic peripheral neuropathy associated with type 2 diabetes mellitus Surgical History 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 S/P foot surgery, right History of amputation of great toe Family History Denies family history of Cancer Social History Smoking and tobacco/nicotine status: current every day tobacco/nicotine user cigarettes Packs smoked per day: 1 Years cigarettes smoked: 53 [ Other cigarette details: Started at 1970] Data Anesthesia 09/20/25 10:54 09/20/25 10:54 Short CBC 09/20/25 Range/Units 10:54 WBC 11.01 (3.29-11.43) 10^3/uL Hgb 7.50 L (11.27-16.99) g/dL Hct 23.5 L (37-53) % MCV 83.3 (82-101) fl Plt Count 480 H (157-399) 10^3/cmm Neut % (Auto) 79.2 % Neut # (Auto) 8.73 H (1.8-7.7) 10^3/uL BMP 09/20/25 10:54 Sodium 138 Potassium 3.3 L Chloride 105 Carbon Dioxide 22 BUN 21 Creatinine 1.1 Glucose 115 Calcium 8.5 Liver Function 09/20/25 Range/Units 10:54 Total Bilirubin 0.2 (0.15-1.2) mg/dL AST 6 (0-40) U/L ALT 6 (0-41) U/L Alkaline Phosphatase 89 (40-130) U/L Albumin 2.9 L (3.5-5.2) g/dL Coags 09/20/25 10:54 ESR 63 H C-Reactive Protein 147.3 H Microbiology 09/20/25 10:55 Blood Culture - Preliminary Blood SPECIMEN COLLECTED 09/20/25 10:54 Blood Culture - Preliminary Blood SPECIMEN COLLECTED Cardiac Studies: Echocardiogram 11/17/24 Echocardiogram Limited Views 05/14/23
[2025-09-20] MEDS: tranexamic acid 1,000 mg/10mL SDV 1000 MG XX (14:43)
--- NOTE | 2025-09-20 14:53 | ANE.PACU2 ---
Inpatient post-anesthesia follow up: Airway intact: Yes Vital signs: Temperature 98.1 F Pulse Rate 65 Respiratory Rate 18 Blood Pressure 102/48 Pulse Oximetry 96 Oxygen Delivery Me thod Room Air Oxygen Flow Rate Fraction of Inspir ed Oxygen Hydration adequate: Yes Nausea and vomiting: No Pain level: 2 Mental status: Baseline
[2025-09-20] MEDS: lidocaine 1% 5 ML in potassium chloride premix 100 ML 52.5 ML IV ×2 (15:11→16:24)
[2025-09-20] MEDS: nystatin 100,000 unit/mL UDC 5 mL 400000 UNIT PO ×2 (15:11→23:06)
[2025-09-20] MEDS: oxyCODONE-APAP 5-325 mg Tablet 1 TAB PO ×2 (15:12→20:40)
--- NOTE | 2025-09-20 16:00 | PM.CONSULT ---
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 ALso with h/o PAD for which he has recently undergone Fem-pop bypass at [facility] few weeks ago. HE has been dealing with 2 chronic non healing wounds over the right foot (one anterior, other over calcaneum which started as blisters) for the past several months and recently established care with wound care clinic in Aug 2025. He has been on wound vac as outpatient. Previously has hardware involving ankle and distal fibula. Patient has been recommended BKA in the past but wishes to salvage limb at this time. wound care notes note bone exposure and extensor tendon in the anterior wound. On outpatient podiatry follow up on 09/18 the wound was regressing, he had constitional symptoms of low grade fever, loss of appetite and subjective chills. He was recommended admission and eventually presented here on 09/20/25. He is now s/p extensive incision and debridement right lower extremity ulcerations with excision of tibialis anterior and Achilles tendon due to tendon necrosis earlier this afternoon. Most recently patient has been on Doxycycline as an outpatient. He also reports recent treatment with Clindamycin as outpatient. Review of Systems General: Reports: Other (patient not seen as in post op at time of rounds ) Medications/Allergies Home Medications ?Medication ?Instructions ?Recorded ?Confirmed ?Last Taken ?Type tamsulosin 0.4 mg capsule 0.8 mg PO BEDTIME 06/21/22 09/20/25 09/19/25 19:00 History acetaminophen 500 mg tablet 1,000 mg (2 x 500 mg) PO Q6H PRN 10/22/22 09/20/25 09/19/25 21:00 Rx Pain 14 days #20 tabs apixaban 5 mg tablet (Eliquis) 5 mg PO BID 03/20/23 09/20/25 09/19/25 20:00 History potassium chloride 20 mEq 20 meq PO BID #60 tabs 05/02/23 09/20/25 09/19/25 Rx tablet,extended release albuterol sulfate 90 mcg/actuation 2 puff inhalation QID PRN 05/14/23 09/20/25 07/13/25 History aerosol inhaler shortness of breath or wheezing nitroglycerin 0.4 mg sublingual 0.4 mg sublingual Q5M PRN chest 05/15/23 09/20/25 Unknown Rx tablet pain #25 tabs furosemide 40 mg tablet 40 mg PO QAM 06/08/23 09/20/25 09/20/25 04:30 History budesonide 160 mcg-glycopyr 9 2 inh inhalation BID #10.7 grams 02/26/24 09/20/25 09/20/25 04:35 Rx mcg-formot 4.8 mcg/actuation HFA inhaler (Breztri Aerosphere) gabapentin 100 mg capsule 100 mg PO TID 11/16/24 09/20/25 09/19/25 History glucometer testing kit #1 ea 11/22/24 09/20/25 Unknown Rx lancets #200 ea 11/22/24 09/20/25 Unknown Rx strips #100 ea 11/22/24 09/20/25 Unknown Rx amiodarone 200 mg tablet (Pacerone) 200 mg PO DAILY 12/08/24 09/20/25 09/19/25 History ipratropium 0.5 mg-albuterol 3 mg 3 ml inhalation QID PRN Shortness 12/08/24 09/20/25 Unknown History (2.5 mg base)/3 mL nebulization Of Breath soln Diabetic shoes #1 ea 05/20/25 09/20/25 Unknown Rx diclofenac sodium 1 % topical gel 2 g topical QID 30 days #150 grams 06/16/25 09/20/25 Unknown Rx (Voltaren Arthritis Pain) Cam boot to right #1 ea 07/14/25 09/20/25 Unknown Rx baclofen 10 mg tablet 10 mg PO BID PRN Pain 07/15/25 09/20/25 Unknown History cholecalciferol (vitamin D3) 10 10 mcg PO DAILY 07/15/25 09/20/25 09/19/25 History mcg (400 unit) tablet (Vitamin D3) temazepam 15 mg capsule 15 mg PO BEDTIME PRN Sleep 07/15/25 09/20/25 Unknown History oxycodone 5 mg tablet 5 mg PO Q8H PRN pain 5 days #15 09/14/25 09/20/25 09/14/25 Rx tabs hydrocodone 5 mg-acetaminophen 325 1 tab PO Q8H pain 7 days #21 tabs 09/16/25 09/20/25 09/20/25 04:30 Rx mg tablet doxycycline hyclate 100 mg capsule 100 mg PO BID 7 days #14 caps 09/18/25 09/20/25 09/20/25 04:30 Rx ibuprofen 200 mg tablet (Advil) 400 mg PO Q6H PRN Fever Or Pain 09/20/25 09/20/25 09/19/25 21:00 History metoprolol tartrate 50 mg tablet 25 mg PO BID 09/20/25 09/20/25 09/19/25 History rosuvastatin 20 mg tablet 10 mg PO DAILY 09/20/25 09/20/25 09/19/25 19:00 History Allergies Allergy/AdvReac Type Severity Reaction Status Date / Time codeine (From AdvReac Mild ADR-Dizzine Verified 09/20/25 10:50 Tylenol-Codeine #3) ss Current Medications Generic Name Dose Route Start Last Admin Trade Name Raudelq PRN Reason Stop Dose Admin Docusate Sodium 100 mg 09/20/25 17:00 09/20/25 15:22 Docusate Sodium 100 Mg Capsule PO 100 mg BID JOSÉ MIGUEL Administration Enoxaparin Sodium 80 mg 09/20/25 12:51 09/20/25 15:03 Enoxaparin 80 Mg/0.8 Ml Syringe SUBCUT Not Given Q12H [facility] Lidocaine HCl 5 ml/ Potassium 105 mls @ 52.5 mls/hr 09/20/25 17:15 09/20/25 16:24 Chloride IV 09/20/25 19:14 52.5 mls/hr ONCE ONE Administration Insulin Human Lispro 0 unit 09/20/25 18:00 09/20/25 16:41 Insulin Lispro 100 Unit/1 Ml SUBCUT Not Given WM&BEDTIME [facility] Protocol Metoprolol Tartrate 25 mg 09/20/25 17:00 09/20/25 16:40 Metoprolol Tartrate 50 Mg Tablet PO 25 mg BID JOSÉ MIGUEL Administration Morphine Sulfate 2 mg 09/20/25 12:51 09/20/25 16:36 Morphine 4 Mg/Ml Sdv 1 Ml IVP 2 mg Q4H PRN Administration [facility] Nystatin 400,000 unit 09/20/25 17:00 09/20/25 15:11 Nystatin 100,000 Unit/Ml Udc 5 Ml PO 400,000 unit QID JOSÉ MIGUEL Administration Oxycodone/Acetaminophen 1 tab 09/20/25 12:51 09/20/25 15:12 Oxycodone-Apap 5-325 Mg Tablet PO 1 tab Q4H PRN Administration SEVERE PAIN Potassium Chloride 20 meq 09/20/25 17:00 09/20/25 16:39 Potassium Chloride Er 20 Meq Tablet PO 20 meq BID JOSÉ MIGUEL Administration PFSH Acute PFSH: Medical History (Updated 09/21/25 @ 08:27 by Bianca Schmitz NP) COPD (chronic obstructive pulmonary disease) Atrial fibrillation Diabetes mellitus Chronic anticoagulation Encephalopathy Acute psychosis Wernicke encephalopathy Black tarry stools Melena Acute blood loss anemia Dehydration Shock Hypotension Atrial fibrillation with rapid ventricular response Acute upper GI bleed Hyperglycemia COVID Hypoxemia COPD exacerbation Non-pressure 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 Dehiscence of amputation stump of right lower extremity Diabetic peripheral neuropathy associated with type 2 diabetes mellitus Surgical History 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 S/P foot surgery, right History of amputation of great toe Family History Denies family history of Cancer Social History Smoking and tobacco/nicotine status: current every day tobacco/nicotine user cigarettes Packs smoked per day: 1 Years cigarettes smoked: 53 [ Other cigarette details: Started at 1970] Vitals/I&O/Wt Last Vital Signs Temp 98.0 F 09/20/25 17:10 Pulse 72 09/20/25 17:10 Resp 17 09/20/25 17:10 BP 153/65 09/20/25 17:10 Pulse Ox 92 09/20/25 17:10 O2 Del Method Room Air 09/20/25 17:10 09/20/25 09/20/25 09/20/25 06:59 14:59 22:59 Intake Total 300 / 300 296 / 596 Output Total 220 / 230 Balance 290 / 290 76 / 366 Weight last 48 hrs Weight 77.111 kg Weight 77.111 kg Physical Exam Narrative: patient not seen as being in post op at time of rounds Data 09/21/25 19:23 09/21/25 03:19 Micro: Microbiology 09/20/25 14:30 Gram Stain - Final Other Source 09/20/25 14:30 Gram Stain - Final Other Source 09/20/25 10:55 Blood Culture - Preliminary Blood SPECIMEN COLLECTED 09/20/25 10:54 Blood Culture - Preliminary Blood SPECIMEN COLLECTED A&P Assessment and plan 1. Cellulitis of right foot: 2. Peripheral arterial disease: 3. Chronic anticoagulation: 4. 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 Now s/p I&D in the OR earlier this afternoon Wound cx taken from the OR pending at this time received meropenem x 1 and zyvox x 1 in ER. Continue inpatient iv abx however change to cefepime and vancomycin empirically while pending results of cx. Blood cx negative thus far. 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
[2025-09-20] MEDS: morphine 4 mg/mL SDV 1 mL 2 MG IVP ×2 (16:36→23:07)
[2025-09-20] MEDS: cefepime 2,000 mg SDV 2000 MG IVP (20:37)
[2025-09-21] VITALS (24 sets, daily range): BP systolic 102–154; BP diastolic 47–72; PULSE 55–73; RESP 14–18; TEMP 36.6–37; O2SAT 92–98; BMI 21.8
[2025-09-21] MEDS: oxyCODONE-APAP 5-325 mg Tablet 1 TAB PO ×4 (00:42→19:56)
[2025-09-21 03:57] LABS: Hematocrit 21.6 % (37-53); Hemoglobin 6.80 g/dL (11.27-16.99); Mean Corpuscular HGB Conc 31.5 g/dL (30-55); Mean Corpuscular Hemoglobin 26.8 pg (27-33); Mean Corpuscular Volume 85.0 fl (82-101); Nucleated Red Blood Cells % 0 %; Platelet Count 497 10^3/cmm (157-399); Red Blood Count 2.54 10^6/uL (3.85-5.65); White Blood Count 8.91 10^3/uL (3.29-11.43)
[2025-09-21 04:14] LABS: Cholesterol 85 mg/dL (0-200); HDL Cholesterol 23 mg/dL (60-100); Triglycerides 90 mg/dL (0-150)
[2025-09-21 04:25] LABS: Alanine Aminotransferase < 5 U/L (0-41); Albumin Level 2.7 g/dL (3.5-5.2); Alkaline Phosphatase 82 U/L (40-130); Anion Gap 11.1 (5-19); Aspartate Amino Transferase 6 U/L (0-40); Blood Urea Nitrogen 16 mg/dL (8-23); Calcium 8.1 mg/dL (8.5-10.5); Carbon Dioxide 24 mmol/L (22-29); Chloride 107 mmol/L (98-107); Globulin 2.6 g/dL (1.3-4.6); Glucose 101 mg/dL (65-115); Magnesium 2.1 mg/dL (1.7-2.3); Osmolality Calculated 287 mOsm/kg (285-295); Potassium 4.1 mmol/L (3.5-5.1); Sodium 138 mmol/L (136-145); Thyroid Stimulating Hormone 1.14 uIU/mL (0.27-4.20); Total Protein 5.3 g/dL (6.6-8.7)
[2025-09-21] MEDS: nystatin 100,000 unit/mL UDC 5 mL 400000 UNIT PO ×4 (04:33→22:49)
[2025-09-21 04:37] LABS: Estmated Average Glucose 117; Hemoglobin A1C 5.7 % (4.0-6.0)
[2025-09-21] MEDS: cefepime 2,000 mg SDV 2000 MG IVP ×2 (06:24→18:16)
--- NOTE | 2025-09-21 07:10 | PHA.VACGOAL ---
Vancomycin Goal - Goal Vancomycin Goal:: 10-15 mg/L Vancomycin Indication:: SSTI - Therapy Current therapy:: Pip/Tazo Day of therpy:: Day []of [] . Actual body weight (kg): 170 lb - Data Labs: WBC 8.91 10^3/uL (3.29-11.43) 09/21/25 03:19 RBC 2.54 10^6/uL (3.85-5.65) L 09/21/25 03:19 Hgb 6.80 g/dL (11.27-16.99) L 09/21/25 03:19 Hct 21.6 % (37-53) L 09/21/25 03:19 MCV 85.0 fl (82-101) 09/21/25 03:19 MCH 26.8 pg (27-33) L 09/21/25 03:19 MCHC 31.5 g/dL (30-55) 09/21/25 03:19 RDW 17.1 % (12.1-15.1) H 09/21/25 03:19 Sodium 138 mmol/L (136-145) 09/21/25 03:19 Potassium 4.1 mmol/L (3.5-5.1) 09/21/25 03:19 Chloride 107 mmol/L (98-107) 09/21/25 03:19 Carbon Dioxide 24 mmol/L (22-29) 09/21/25 03:19 Anion Gap 11.1 (5-19) 09/21/25 03:19 BUN 16 mg/dL (8-23) 09/21/25 03:19 Creatinine 1.1 mg/dL (0.7-1.2) 09/21/25 03:19 GFR Calculation Not Reportable 09/21/25 03:19 Last dialysis session:: N/A Treatment plan:: new consult Regimen:: INITIAL LOADING DOSE OF 1500 MG X 1 MAINTENANCE DOSE OF 1250 MG Q12H Follow up:: WILL CONTINUE TO MONITOR AND FOLLOW UP DIALY
--- NOTE | 2025-09-21 07:30 | P.PN_ITS ---
Subjective 2 Subjective: Patient is a very pleasant 75-year-old male seen and examined at bedside on hospital rounds today. Patient laying in bed stating that his pain is very well-controlled this morning, denies new or worsening symptoms. Spoke with patient about his labs, hemoglobin 6.80, patient states that he is agreeable to blood transfusion. Ordered 1u pRBC's. Patient's vital signs remained stable, room air saturation greater than 90%. Encouraged use of incentive spirometer, patient states that this never helps him but he is agreeable to trying. Greatly appreciate continued antibiotic management with infectious disease Dr. Durham and wound management with retail sales associate Dr. Melendez. Patient understands that his hospitalization will be prolonged with need to return to the OR later this week, all questions and concerns addressed with him at the bedside today. Vitals/I&O/Wt Last Vital Signs Temp 98.0 F 09/21/25 07:21 Pulse 57 L 09/21/25 07:21 Resp 15 09/21/25 07:21 BP 112/49 09/21/25 07:21 Pulse Ox 96 09/21/25 07:21 O2 Del Method Room Air 09/21/25 07:21 09/20/25 09/21/25 09/21/25 22:59 06:59 14:59 Intake Total 496 / 796 210 / 1006 Output Total 320 / 330 100 / 430 200 / 200 Balance 176 / 466 110 / 576 -200 / -200 Weight last 48 hrs Weight 77.111 kg Weight 77.111 kg Weight 77.111 kg Weight 77.111 kg Physical Exam 2 Const: COMMON NORMALS: no acute distress and patient oriented x3 HENMT: COMMON NORMALS: normocephalic and Normal external nose present HEAD & SCALP: normocephalic NOSE: Normal external nose present THROAT: p osterior oropharynx abnormal erythema Eye: COMMON NORMALS: Equal, round and reactive pupils present PUPIL: Yes Equal, round and reactive pupils present Resp: COMMON NORMALS: normal respiratory effort, No retractions, No use of accessory muscles and clear to auscultation bilaterally AUSCULTATION: clear to auscultation bilaterally Cardio: COMMON NORMALS: regular rate, regular rhythm, S1 normal heart sound present and S2 normal heart sound present RATE: regular rate RHYTHM: r egular rhythm HEART SOUNDS: S1 normal heart sound present and S2 normal heart sound present GI: COMMON NORMALS: Normal to inspection, nondistended, normoactive bowel sounds present and non-tender Extremity: COMMON NORMALS: no pedal edema NARRATIVE EXTREMITY EXAM: Right foot wrapped, did not visualize wound but no visible drainage, right leg with improved erhtyema. Neuro: COMMON NORMALS: patient oriented x3 and moves all extremities Psych: COMMON NORMALS: mental status grossly normal Data 09/21/25 03:19 09/21/25 03:19 Micro: Microbiology 09/20/25 14:30 Gram Stain - Final Other Source 09/20/25 14:30 Gram Stain - Final Other Source 09/20/25 10:55 Blood Culture - Preliminary Blood SPECIMEN COLLECTED 09/20/25 10:54 Blood Culture - Preliminary Blood SPECIMEN COLLECTED A&P Assessment and plan 1. Chronic ulcer of right foot with necrosis of bone: 2. Cellulitis of right lower extremity: 3. Peripheral vascular disease: 4. Diabetic foot infection: 5. Permanent atrial fibrillation: 6. Diabetes mellitus: 7. Chronic anticoagulation: 8. Centrilobular emphysema: 9. Peripheral arterial disease: 10. Anemia: Plan: Chronic right foot wound with tendon exposure to right foot and ankle Cellulitis - Managed by Supervisor [employer] , appreciate continued management inpatient - Admitting WBC 1101, CRP 147.3 - Blood Culture x 2 pending - Pending wound cultures from surgery - ER Provider gave Zyvox and Merrem - Greatly appreciate consultation and antibiotic management with ID - Continue IV antibiotics with Vancomycin and Cefepime, pharmacy to dose/manage vancomycin - Noted that patient is expected a prolonged stay in the hospital with plans to go back to the OR later this week Anemia, blood loss and chronic - Admitting Hgb 7.50, repeat today 6.80 - Pending 1u pRBC's - Iron/TIBC pending result - Continue to monitor closely DM-II Diabetic Neuropathy - Pending A1C - Medium dose SSI, POC - Continue Gabapentin - Monitor PVD Hyperlipidemia - Continue cardio-protective medications Atrial Fibrillation Chronic Anticoagulation - Currently in NSR, rate controlled - Holding Eliquis during hospitalization, VTE with SQ lovenox but held in the setting of anemia, resume when able - Continue Metoprolol and amiodarone COPD - Not in exacerbation - continue home inhaler - PRN DuoNeb - Supportive measures GERD - Takes Pepcid at home - PPI Oral Candidiasis - Oral Nystatin QID BPH - Continue Tamsulosin VTE PPX: Full dose lovenox holding Eliquis GI PPX: PPI Code Status: Full Code PDMP PDMP Reviewed: Not Reviewed Attestations 2 Medical Necessity Statement*: Expectation for prolonged hospitalization greater than 2 midnights for right wound infection with tendon exposure need for continued surgical management with podiatry with plans of more surgical interventions, antibiotic management with infectious disease, and complex medical management. Coding Level of Care Code 43357 Diagnoses Chronic ulcer of right foot with necrosis of bone L97.514 Cellulitis of right lower extremity L03.115 Peripheral vascular disease I73.9 Diabetic foot infection E11.628; L08.9 Permanent atrial fibrillation I48.21 Diabetes mellitus E11.9 Chronic anticoagulation Z79.01 Centrilobular emphysema J43.2 Peripheral arterial disease I73.9 Anemia D64.9
--- NOTE | 2025-09-21 08:04 | PM.PN ---
Subjective Subjective: 1 day status post extensive incision and debridement multiple areas down to myofascial layer right lower extremity. Tolerating regular diet. States that pain medication is adequate and he is comfortable with his pain regimen. Vitals/I&O/Wt Last Vital Signs Temp 98.0 F 09/21/25 07:21 Pulse 55 L 09/21/25 07:45 Resp 16 09/21/25 07:45 BP 112/49 09/21/25 07:21 Pulse Ox 93 09/21/25 07:45 O2 Del Method Room Air 09/21/25 07:45 09/20/25 09/21/25 09/21/25 22:59 06:59 14:59 Intake Total 496 / 796 210 / 1006 Output Total 320 / 330 100 / 430 200 / 200 Balance 176 / 466 110 / 576 -200 / -200 Weight last 48 hrs Weight 170 lb Weight 170 lb Weight 170 lb Weight 170 lb Physical Exam Narrative: GENERAL: Patient is alert and oriented ?3 and in no acute distress. The following is a focused right lower extremity exam. VASCULAR: Dorsalis pedis and posterior tibial arteries diminished. NEUROLOGICAL: Protective sensation diminished. DERMATOLOGICAL: Erythema to the right lower extremity up to the level of mid leg, there is no purulent drainage from anterior and posterior right leg and ankle wounds. MUSCULOSKELETAL: Status post right transmetatarsal amputation. Data 09/21/25 03:19 09/21/25 03:19 Micro: Microbiology 09/20/25 14:30 Gram Stain - Final Other Source 09/20/25 14:30 Gram Stain - Final Other Source 09/20/25 10:55 Blood Culture - Preliminary Blood SPECIMEN COLLECTED 09/20/25 10:54 Blood Culture - Preliminary Blood SPECIMEN COLLECTED A&P Assessment and plan 1. Diabetic peripheral neuropathy associated with type 2 diabetes mellitus: 2. Cellulitis of right lower extremity: 3. 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 Peripheral arterial disease: Plan: Patient admitted to hospital service for cellulitis right lower extremity with ulcerations to the right lower extremity exposed to necrotic tendon. Patient wishes to pursue aggressive limb salvage efforts is not ready to proceed with below-knee amputation yet. He had a recent revascularization attempt to the right lower extremity done at [facility]. - Nonweightbearing right lower extremity. - Incision and debridement right lower extremity multiple areas down to myofascial layer and excision of right Achilles tendon and tibialis anterior tendon performed 09/20/2025. - Necrotic tendon sent intraoperatively to microbiology, cultures pending. - Empiric IV antibiotics per hospitalist team - Anticipate multiple debridements and possible application of biologic graft with wound VAC pending his response to surgical and medical management of his current right lower extremity infection. Will require daily monitoring Daily monitoring right lower extremity, once cellulitis is resolved patient will go back to the operating room for application of biologic graft with wound VAC. Podiatry will follow. PDMP PDMP Reviewed: Not Reviewed Attestations Medical Necessity Statement*: Deferred to primary Coding Level of Care Code Acute Code for [facility] Fwd Diagnoses Diabetic peripheral neuropathy associated with type 2 diabetes mellitus E11.42 Cellulitis of right lower extremity L03.115 Chronic ulcer of great toe of right foot with necrosis of muscle L97.513 Peripheral arterial disease I73.9
[2025-09-21 08:59] LABS: Iron 13 ug/dL (59-158); Total Iron Binding Capacity 124 mcg/dl; Unsaturated Iron Binding 111 ug/dL (112-347)
--- NOTE | 2025-09-21 12:58 | PM.PN ---
Subjective Subjective: ID progress note S/p I&D yesterday cx awaited denies any pain at this time Medications: Reviewed: Yes Vitals/I&O/Wt Last Vital Signs Temp 98.1 F 09/21/25 12:28 Pulse 65 09/21/25 12:28 Resp 18 09/21/25 12:28 BP 102/48 09/21/25 12:28 Pulse Ox 96 09/21/25 12:28 O2 Del Method Room Air 09/21/25 11:15 09/20/25 09/21/25 09/21/25 22:59 06:59 14:59 Intake Total 496 / 796 210 / 1006 1180 / 1180 Output Total 320 / 330 100 / 430 550 / 550 Balance 176 / 466 110 / 576 630 / 630 Weight last 48 hrs Weight 77.111 kg Weight 77.111 kg Weight 77.111 kg Weight 77.111 kg Physical Exam Narrative: General: No acute distress, AO x3 HEENT: PERRLA, pupils bilaterally equal and reactive, pallors not present Neuro: No focal deficits, no facial deformity, AO x3 Extremities: Right foot with post op surgical dressing in place. Data 09/21/25 19:23 09/21/25 03:19 Micro: Microbiology 09/20/25 10:54 Blood Culture - Preliminary Blood NEGATIVE TO DATE 09/20/25 10:55 Blood Culture - Preliminary Blood NEGATIVE TO DATE 09/20/25 14:30 Anaerobic Culture - Preliminary Other Source 09/20/25 14:30 Anaerobic Culture - Preliminary Other Source 09/20/25 14:30 Gram Stain - Final Other Source 09/20/25 14:30 Gram Stain - Final Other Source A&P Assessment and plan 1. Chronic ulcer of right foot with necrosis of bone: 2. Cellulitis of right lower extremity: 3. Diabetic foot infection: 4. Diabetes mellitus: 5. Peripheral arterial disease: Plan: 75M with PAD, Dm , chronic non healing ulcer over the right foot over many months s/p fem pop bypass, past hardware at ankle, currently admitted for worsening wound, cellulitis, exposed tendon and bone anterior wound. Now s/p I&D in the OR earlier this afternoon Wound cx taken from the OR pending at this time received meropenem x 1 and zyvox x 1 in ER. Continue inpatient iv abx however change to cefepime and vancomycin empirically while pending results of cx. Blood cx negative thus far. Will continue to follow 09/21/25: s/p incision and debridement multiple areas down to myofascial layer right lower extremity and excision of right Achilles tendon and tibialis anterior tendon. Necrotic tendon sent intraoperatively to microbiology, cultures pending. Per review o leslie op notes, Extensive wound at the anterior leg extending across the anterior ankle and foot measured 15 cm in length and 4 cm in width with 1 cm depth down to bone. Visible medial cuneiform. Recommend MRI foot to assess for osteomyelitis of cuneiform. Patient denies having been treated for osteomyelitis with iv abx in the recent past. Depending on MRI findings and intra op cx, total course and selection of abx will be finalized. Blood cx so far negative to date. PDMP PDMP Reviewed: Not Reviewed Attestations Medical Necessity Statement*: Per admitting note Coding Level of Care Code Acute Code for [facility] Fwd Diagnoses Chronic ulcer of right foot with necrosis of bone L97.514 Cellulitis of right lower extremity L03.115 Diabetic foot infection E11.628; L08.9 Diabetes mellitus E11.9 Peripheral arterial disease I73.9
--- NOTE | 2025-09-21 16:12 | CTR_ITS ---
PROCEDURE INFORMATION: Exam: CT Right Lower Extremity Without Contrast, Foot Exam date and time: 09/21/2025 4:35 PM Age: 75 years old Clinical indication: Other: Concern for osteo, unable to complete mri TECHNIQUE: Imaging protocol: CT of the right lower extremity without contrast was performed. Exam focused on the foot. Radiation optimization: All CT scans at this facility use at least one of these dose optimization techniques: automated exposure control; mA and/or kV adjustment per patient size (includes targeted exams where dose is matched to clinical indication); or iterative reconstruction. COMPARISON: CT foot RT wo con* [id number] 07/14/2025 4:29 PM RADIATION DOSE METRICS: Total DLP (mGy-cm): 151.5 FINDINGS: Bones/joints: Osteopenic appearance of the bones. Postsurgical changes of 2nd through 5th transmetatarsal amputation,and 1st digit tarsometatarsal joint amputation. Postsurgical changes of J wire fixation of visualized fibula, dual screw fixation of the distal tibia, and medial malleolar screw and K-wire fixation. No evidence of hardware complication. Ankle mortise is congruent with moderate degenerative changes in the ankle joint. There is erosive changes at the medial cuneiform (series 14, image 11). Soft tissues: There diffuse soft tissue edema and fat stranding throughout the foot. There is soft tissue defect overlying 1st digit surgical site which appears to extend to medial cuneiform surface. There is trace punctate foci of subcutaneous emphysema extending along the medial cuneiform surgical site and dorsally to the level of the navicular bone. Subcutaneous soft tissue defect noted about the anterior end posterior aspect of the lower extremity , likely representing underlying wound/ulceration. No definitive organized fluid collection to suggest drainable abscess formation. CT/CT foot RT wo con* [id number] IMPRESSION: 1. Postsurgical changes of 1st digit tarsometatarsal joint amputation, 2nd through 5th transmetatarsal amputations and distal tibia/fibula ORIF with diffuse lower extremity soft tissue thickening and swelling suggestive of cellulitis/phlegmonous formation throughout the foot with dorsal predominance. No definitive drainable organized fluid collection. 2. Medial cuneiform osseous erosive changes with adjacent soft tissue ulceration, phlegmon, and trace subcutaneous air concerning for osteomyelitis. 3. Soft tissue wound/ulceration along the posterior and anterior aspect of distal tibia/fibula.
[2025-09-21] MEDS: morphine 4 mg/mL SDV 1 mL 2 MG IVP ×2 (16:55→22:49)
[2025-09-21 19:29] LABS: Hematocrit 24.6 % (37-53); Hemoglobin 7.50 g/dL (11.27-16.99)
[2025-09-22] VITALS (19 sets, daily range): BP systolic 104–142; BP diastolic 42–75; PULSE 54–64; RESP 16–18; TEMP 36.6–36.9; O2SAT 96–98
[2025-09-22] MEDS: oxyCODONE-APAP 5-325 mg Tablet 1 TAB PO ×3 (03:34→20:11)
[2025-09-22] MEDS: nystatin 100,000 unit/mL UDC 5 mL 400000 UNIT PO ×4 (04:42→21:50)
[2025-09-22] MEDS: cefepime 2,000 mg SDV 2000 MG IVP ×2 (06:01→20:12)
[2025-09-22 06:02] LABS: Hematocrit 23.1 % (37-53); Hemoglobin 7.20 g/dL (11.27-16.99); Mean Corpuscular HGB Conc 31.2 g/dL (30-55); Mean Corpuscular Hemoglobin 26.3 pg (27-33); Mean Corpuscular Volume 84.3 fl (82-101); Nucleated Red Blood Cells % 0 %; Platelet Count 445 10^3/cmm (157-399); Red Blood Count 2.74 10^6/uL (3.85-5.65); White Blood Count 7.68 10^3/uL (3.29-11.43)
[2025-09-22] MEDS: morphine 4 mg/mL SDV 1 mL 2 MG IVP (06:17)
[2025-09-22 06:27] LABS: Alanine Aminotransferase < 5 U/L (0-41); Albumin Level 2.6 g/dL (3.5-5.2); Alkaline Phosphatase 79 U/L (40-130); Anion Gap 13.3 (5-19); Aspartate Amino Transferase 6 U/L (0-40); Blood Urea Nitrogen 18 mg/dL (8-23); Calcium 8.0 mg/dL (8.5-10.5); Carbon Dioxide 21 mmol/L (22-29); Chloride 109 mmol/L (98-107); Globulin 3.2 g/dL (1.3-4.6); Glucose 105 mg/dL (65-115); Magnesium 1.9 mg/dL (1.7-2.3); Osmolality Calculated 290 mOsm/kg (285-295); Potassium 4.3 mmol/L (3.5-5.1); Sodium 139 mmol/L (136-145); Total Protein 5.8 g/dL (6.6-8.7)
--- NOTE | 2025-09-22 08:02 | PM.PN ---
Subjective Subjective: Patient is a very pleasant 75-year-old male seen and examined at bedside on hospital rounds this morning. Patient sitting up in bed stating that his pain is very well-controlled, he feels that his appetite is also returned and was able to tolerate good oral intake of food and fluids. Patient states that he has not had a bowel movement in 2 days but he is not been eating well leading up to that. Patient is currently on a stool softener and states that he wants to wait before adding anything else to his bowel regimen. Review of his labs hemoglobin 7.20 we will continue to closely monitor and transfuse if this drops below 7. Tentative plans to go back to the OR with strategic communications manager on for graft with wound vac. Will continue IV antibiotic therapy and current interventions inpatient leading up to this. All questions and concerns were addressed with the patient at bedside this morning. Vitals/I&O/Wt Last Vital Signs Temp 97.8 F 09/22/25 08:00 Pulse 57 L 09/22/25 08:00 Resp 18 09/22/25 08:00 BP 126/49 09/22/25 08:00 Pulse Ox 96 09/22/25 08:00 O2 Del Method Room Air 09/22/25 08:00 09/21/25 09/22/25 09/22/25 22:59 06:59 14:59 Intake Total 490 / 1670 500 / 2170 Output Total 225 / 775 250 / 1025 550 / 550 Balance 265 / 895 250 / 1145 -550 / -550 Weight last 48 hrs Weight 78.744 kg Weight 77.111 kg Weight 77.111 kg Weight 77.111 kg Weight 77.111 kg Physical Exam Const: COMMON NORMALS: no acute distress and patient oriented x3 HENMT: COMMON NORMALS: normocephalic and Normal external nose present HEAD & SCALP: normocephalic NOSE: Normal external nose present THROAT: posterior oropharynx abnormal erythema Eye: COMMON NORMALS: Equal, round and reactive pupils present PUPIL: Yes Equal, round and reactive pupils present Resp: COMMON NORMALS: normal respiratory effort, No retractions, No use of accessory muscles and clear to auscultation bilaterally AUSCULTATION: clear to auscultation bilaterally Cardio: COMMON NORMALS: regular rate, regular rhythm, S1 normal heart sound present and S2 normal heart sound present RATE: regular rate RHYTHM: regular rhythm HEART SOUNDS: S1 normal heart sound present and S2 normal heart sound present GI: COMMON NORMALS: Normal to inspection, nondistended, normoactive bowel sounds present and non-tender Extremity: COMMON NORMALS: no pedal edema NARRATIVE EXTREMITY EXAM: Right foot wrapped, did not visualize wound but no visible drainage, right leg with improved erythema. Neuro: COMMON NORMALS: patient oriented x3 and moves all extremities Psych: COMMON NORMALS: mental status grossly normal Data 09/22/25 05:28 09/22/25 05:28 Micro: Microbiology 09/20/25 14:30 Gram Stain - Final Other Source Wound Culture - Preliminary 09/20/25 14:30 Gram Stain - Final Other Source Wound Culture - Preliminary 09/20/25 10:54 Blood Culture - Preliminary Blood NEGATIVE TO DATE 09/20/25 10:55 Blood Culture - Preliminary Blood NEGATIVE TO DATE 09/20/25 14:30 Anaerobic Culture - Preliminary Other Source 09/20/25 14:30 Anaerobic Culture - Preliminary Other Source A&P Assessment and plan 1. Chronic ulcer of right foot with necrosis of bone: 2. Cellulitis of right lower extremity: 3. Peripheral vascular disease: 4. Diabetic foot infection: 5. Permanent atrial fibrillation: 6. Diabetes mellitus: 7. Chronic anticoagulation: 8. Centrilobular emphysema: 9. Peripheral arterial disease: 10. Anemia: Plan: Chronic right foot wound with tendon exposure to right foot and ankle Cellulitis - Managed by Embroiderer , appreciate continued management inpatient, tentative plans to return to the OR on 09/24 - Admitting WBC 1101, CRP 147.3 - Blood Culture x 2 NGTD - Pending wound cultures from surgery, Gram Stain with heavy gram-positive cocci in pairs - ER Provider gave Zyvox and Merrem - Greatly appreciate consultation and antibiotic management with ID - Continue IV antibiotics with Vancomycin and Cefepime, pharmacy to dose/manage vancomycin - Noted that patient is expected a prolonged stay in the hospital with plans to go back to the OR later this week Anemia, blood loss and chronic iron defeciency - Admitting Hgb 7.50--<6.80--<7.50--<7.20 - s/p 1u pRBC's 09/21 - Ferrous sulfate 325mg BID and ascorbic acid 500mg Daily - Continue to monitor closely DM-II Diabetic Neuropathy - A1c 5.7 - Medium dose SSI, POC - Continue Gabapentin - Monitor PVD Hyperlipidemia - Continue cardio-protective medications Atrial Fibrillation Chronic Anticoagulation - Currently in NSR, rate controlled - Holding Eliquis during hospitalization, VTE with SQ lovenox but held in the setting of anemia, resume when able - Continue Metoprolol and amiodarone COPD - Not in exacerbation - continue home inhaler - PRN DuoNeb - Supportive measures GERD - Takes Pepcid at home - PPI Oral Candidiasis - Oral Nystatin QID - Much improved appetite and ability to tolerate oral intake BPH - Continue Tamsulosin VTE PPX: Full dose lovenox holding Eliquis GI PPX: PPI Code Status: Full Code PDMP PDMP Reviewed: Not Reviewed Attestations Medical Necessity Statement*: Expectation for prolonged hospitalization greater than 2 midnights for right wound infection with tendon exposure need for continued surgical management with podiatry with plans of more surgical interventions, antibiotic management with infectious disease, and complex medical management. Coding Level of Care Code 63056 Diagnoses Chronic ulcer of right foot with necrosis of bone L97.514 Cellulitis of right lower extremity L03.115 Peripheral vascular disease I73.9 Diabetic foot infection E11.628; L08.9 Permanent atrial fibrillation I48.21 Diabetes mellitus E11.9 Chronic anticoagulation Z79.01 Centrilobular emphysema J43.2 Peripheral arterial disease I73.9 Anemia D64.9
--- NOTE | 2025-09-22 08:11 | P.PN_ITS ---
Subjective 2 Subjective: 2 days status post extensive incision an d debridement multiple areas down to myofascial layer right lower extremity. Tolerating regular diet. States that pain medication is adequate and he is comfortable with his pain regimen. Vitals/I&O/Wt Last Vital Signs Temp 97.8 F 09/22/25 08:00 Pulse 57 L 09/22/25 08:00 Resp 18 09/22/25 08:00 BP 126/49 09/22/25 08:00 Pulse Ox 96 09/22/25 08:00 O2 Del Method Room Air 09/22/25 08:00 09/21/25 09/22/25 09/22/25 22:59 06:59 14:59 Intake Total 490 / 1670 500 / 2170 Output Total 225 / 775 250 / 1025 550 / 550 Balance 265 / 895 250 / 1145 -550 / -550 Weight last 48 hrs Weight 173 lb 9.6 oz Weight 170 lb Weight 170 lb Weight 170 lb Weight 170 lb Physical Exam 2 Narrative: GENERAL: Patient is alert and oriented ?3 and in no acute distress. The following is a focused right lower extremity exam. VASCULAR: Dorsalis pedis and posterior tibial arteries diminished. NEUROLOGICAL: Protective sensation diminished. DERMATOLOGICAL: Erythema to the right lower extremity up to the level of mid leg, there is no purulent drainage from anterior and posterior right leg and ankle wounds. MUSCULOSKELETAL: Status post right transmetatarsal amputation. Data 09/22/25 05:28 09/22/25 05:28 Micro: Microbiology 09/20/25 14:30 Gram Stain - Final Other Source Wound Culture - Preliminary 09/20/25 14:30 Gram Stain - Final Other Source Wound Culture - Preliminary 09/20/25 10:54 Blood Culture - Preliminary Blood NEGATIVE TO DATE 09/20/25 10:55 Blood Culture - Preliminary Blood NEGATIVE TO DATE 09/20/25 14:30 Anaerobic Culture - Preliminary Other Source 09/20/25 14:30 Anaerobic Culture - Preliminary Other Source A&P Assessment and plan 1. Diabetic peripheral neuropathy associated with type 2 diabetes mellitus: 2. Cellulitis of right lower extremity: 3. 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 Peripheral arterial disease: Plan: Patient admitted to hospital service for cellulitis right lower extremity with ulcerations to the right lower extremity exposed to necrotic tendon. Patient wishes to pursue aggressive limb salvage efforts is not ready to proceed with below-knee amputation yet. He had a recent revascularization attempt to the right lower extremity done at [facility]. - Nonweightbearing right lower extremity. - Incision and debridement right lower extremity multiple areas down to myofascial layer and excision of right Achilles tendon and tibialis anterior tendon performed 09/20/2025. - Necrotic tendon sent intraoperatively to microbiology, cultures pending. - Empiric IV antibiotics per hospitalist team - CT scan concerning for osteomyelitis of the medial cuneiform right foot. - Anticipate multiple debridements and possible application of biologic graft with wound VAC pending his response to surgical and medical management of his current right lower extremity infection. Will require daily monitoring Daily monitoring right lower extremity, once cellulitis is resolved patient will go back to the operating room for application of biologic graft with wound VAC. Tentatively scheduled for excision of medial cuneiform and application of biologic graft , 09/24/2025. Podiatry will follow. 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
--- NOTE | 2025-09-22 16:23 | PM.PN ---
Subjective Subjective: ID progress note no new complaints today planned to return to OR on CT Foot showed osteomyelitis of cuneiform cx awaited , prelim coag + staph, likely staph aureus + grp B strep Medications: Reviewed: Yes Vitals/I&O/Wt Last Vital Signs Temp 98.0 F 09/22/25 15:24 Pulse 54 L 09/22/25 15:24 Resp 16 09/22/25 15:24 BP 142/56 09/22/25 15:24 Pulse Ox 96 09/22/25 15:24 O2 Del Method Room Air 09/22/25 15:24 09/22/25 09/22/25 09/22/25 06:59 14:59 22:59 Intake Total 500 / 2170 970 / 970 Output Total 250 / 1025 1400 / 1400 450 / 1850 Balance 250 / 1145 -430 / -430 -450 / -880 Weight last 48 hrs Weight 78.744 kg Weight 77.111 kg Weight 77.111 kg Physical Exam Narrative: Seen via telehealth today Data 09/22/25 05:28 09/22/25 05:28 Micro: Microbiology 09/20/25 14:30 Gram Stain - Final Other Source Wound Culture - Preliminary 09/20/25 14:30 Gram Stain - Final Other Source Wound Culture - Preliminary 09/20/25 14:30 Anaerobic Culture - Preliminary Other Source 09/20/25 14:30 Anaerobic Culture - Preliminary Other Source 09/20/25 10:54 Blood Culture - Preliminary Blood NEGATIVE TO DATE 09/20/25 10:55 Blood Culture - Preliminary Blood NEGATIVE TO DATE A&P Assessment and plan 1. Chronic ulcer of right foot with necrosis of bone: 2. Cellulitis of right lower extremity: 3. Diabetic foot infection: 4. Diabetes mellitus: 5. Peripheral arterial disease: Plan: 75M with PAD, Dm , chronic non healing ulcer over the right foot over many months s/p fem pop bypass, past hardware at ankle, currently admitted for worsening wound, cellulitis, exposed tendon and bone anterior wound. Now s/p I&D in the OR earlier this afternoon Wound cx taken from the OR pending at this time received meropenem x 1 and zyvox x 1 in ER. Continue inpatient iv abx however change to cefepime and vancomycin empirically while pending results of cx. Blood cx negative thus far. Will continue to follow 09/21/25: s/p incision and debridement multiple areas down to myofascial layer right lower extremity and excision of right Achilles tendon and tibialis anterior tendon. Necrotic tendon sent intraoperatively to microbiology, cultures pending. Per review o leslie op notes, Extensive wound at the anterior leg extending across the anterior ankle and foot measured 15 cm in length and 4 cm in width with 1 cm depth down to bone. Visible medial cuneiform. Recommend MRI foot to assess for osteomyelitis of cuneiform. Patient denies having been treated for osteomyelitis with iv abx in the recent past. Depending on MRI findings and intra op cx, total course and selection of abx will be finalized. Blood cx so far negative to date. 09/22/25: CT foot taken yesterday instead of MRI due to prior embedded shrapnel. tendon cx with coag + staph, likely staph aureus + grp B streptococcus. CT foot with osteomyelitis of the cuneiform bone. Plan for 6 weeks iv abx course, anticipate with daptomycin 8mg/kg every 24 hrs for treatment. Will continue to follow. D/c cefepime. No gram negatives on cx thus far. Continue iv vancomycin for duration of hospital stay. PDMP PDMP Reviewed: Not Reviewed Attestations Medical Necessity Statement*: Per admitting note Coding Level of Care Code Acute Code for [facility] Fwd Diagnoses Chronic ulcer of right foot with necrosis of bone L97.514 Cellulitis of right lower extremity L03.115 Diabetic foot infection E11.628; L08.9 Diabetes mellitus E11.9 Peripheral arterial disease I73.9
[2025-09-22] MEDS: ferrous sulfate EC 325 mg Tablet PO (17:21)
--- NOTE | 2025-09-22 20:45 | PC.NURSE ---
patient refused insulin patient said its maintained at home without it and don't want it
[2025-09-23] VITALS (18 sets, daily range): BP systolic 101–147; BP diastolic 50–84; PULSE 49–87; RESP 16–18; TEMP 36.3–36.7; O2SAT 91–98; BMI 22.3
[2025-09-23] MEDS: oxyCODONE-APAP 5-325 mg Tablet 1 TAB PO ×3 (00:59→09:58)
[2025-09-23] MEDS: nystatin 100,000 unit/mL UDC 5 mL 400000 UNIT PO ×4 (05:28→21:01)
[2025-09-23 06:03] LABS: Hematocrit 25.2 % (37-53); Hemoglobin 7.90 g/dL (11.27-16.99); Mean Corpuscular HGB Conc 31.3 g/dL (30-55); Mean Corpuscular Hemoglobin 26.7 pg (27-33); Mean Corpuscular Volume 85.1 fl (82-101); Nucleated Red Blood Cells % 0 %; Platelet Count 485 10^3/cmm (157-399); Red Blood Count 2.96 10^6/uL (3.85-5.65); White Blood Count 6.96 10^3/uL (3.29-11.43)
[2025-09-23 06:39] LABS: Alanine Aminotransferase 6 U/L (0-41); Albumin Level 2.8 g/dL (3.5-5.2); Alkaline Phosphatase 78 U/L (40-130); Anion Gap 13.5 (5-19); Aspartate Amino Transferase 7 U/L (0-40); Blood Urea Nitrogen 24 mg/dL (8-23); Calcium 8.5 mg/dL (8.5-10.5); Carbon Dioxide 23 mmol/L (22-29); Chloride 108 mmol/L (98-107); Globulin 2.8 g/dL (1.3-4.6); Glucose 121 mg/dL (65-115); Magnesium 1.9 mg/dL (1.7-2.3); Osmolality Calculated 295 mOsm/kg (285-295); Potassium 4.5 mmol/L (3.5-5.1); Sodium 140 mmol/L (136-145); Total Protein 5.6 g/dL (6.6-8.7)
--- NOTE | 2025-09-23 06:39 | PM.PN ---
Subjective Subjective: 3 days status post extensive incision and debridement multiple areas down to myofascial layer right lower extremity. Tolerating regular diet. States that pain medication is adequate and he is comfortable with his pain regimen. Vitals/I&O/Wt Last Vital Signs Temp 98 F 09/24/25 04:00 Pulse 69 09/24/25 05:59 Resp 16 09/24/25 04:39 BP 115/45 09/24/25 04:00 Pulse Ox 93 09/24/25 04:00 O2 Del Method Room Air 09/23/25 19:39 09/23/25 09/23/25 09/24/25 14:59 22:59 06:59 Intake Total 960 / 960 730 / 1690 Output Total 1900 / 1900 1000 / 2900 300 / 3200 Balance -940 / -940 -270 / -1210 -300 / -1510 Weight last 48 hrs Weight 165 lb 8 oz Weight 173 lb Weight 173 lb 14.4 oz Physical Exam Narrative: GENERAL: Patient is alert and oriented ?3 and in no acute distress. The following is a focused right lower extremity exam. VASCULAR: Dorsalis pedis and posterior tibial arteries diminished. NEUROLOGICAL: Protective sensation diminished. DERMATOLOGICAL: Erythema to the right lower extremity up to the level of mid leg, there is no purulent drainage from anterior and posterior right leg and ankle wounds. MUSCULOSKELETAL: Status post right transmetatarsal amputation. Data 09/24/25 05:04 09/24/25 05:04 Micro: Microbiology 09/24/25 05:04 Blood Culture - Preliminary Blood SPECIMEN COLLECTED 09/24/25 05:12 Blood Culture - Preliminary Blood SPECIMEN COLLECTED 09/20/25 10:55 Blood Culture - Preliminary Blood Staphylococcus species 09/20/25 14:30 Gram Stain - Final Other Source Wound Culture - Preliminary Staphylococcus aureus Strep agalactiae - (group b) 09/20/25 14:30 Anaerobic Culture - Preliminary Other Source 09/20/25 14:30 Anaerobic Culture - Preliminary Other Source A&P Assessment and plan 1. Diabetic peripheral neuropathy associated with type 2 diabetes mellitus: 2. Cellulitis of right lower extremity: 3. 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 Peripheral arterial disease: Plan: Patient admitted to hospital service for cellulitis right lower extremity with ulcerations to the right lower extremity exposed to necrotic tendon. Patient wishes to pursue aggressive limb salvage efforts is not ready to proceed with below-knee amputation yet. He had a recent revascularization attempt to the right lower extremity done at [facility] [place]. - Nonweightbearing right lower extremity. - Incision and debridement right lower extremity multiple areas down to myofascial layer and excision of right Achilles tendon and tibialis anterior tendon performed 09/20/2025. - Necrotic tendon sent intraoperatively to microbiology, cultures pending. - IV antibiotics per hospitalist team - CT scan concerning for osteomyelitis of the medial cuneiform right foot. - Anticipate multiple debridements and possible application of biologic graft with wound VAC pending his response to surgical and medical management of his current right lower extremity infection. Will require daily monitoring N.p.o. at midnight, scheduled for further debridement and application of biologic graft and excision of medial cuneiform tomorrow at 11:00 AM. Podiatry will follow. PDMP PDMP Reviewed: Not Reviewed Attestations Medical Necessity Statement*: Deferred to primary Coding Level of Care Code Acute Code for [facility] Diagnoses Diabetic peripheral neuropathy associated with type 2 diabetes mellitus E11.42 Cellulitis of right lower extremity L03.115 Chronic ulcer of great toe of right foot with necrosis of muscle L97.513 Peripheral arterial disease I73.9
--- NOTE | 2025-09-23 07:54 | P.PN_ITS ---
Subjective 2 Subjective: Patient is a very pleasant 75-year-old male seen and examined at bedside on hospital rounds this morning. Patient sitting up in bed with no new complaints. Dressing changed by Dr. Meelndez who was also at the bedside and stated plans to take patient back to OR tomorrow. Discussed with patient per Dr. Durham's plan to continue long-term IV antibiotics in review of CT with osteo, originally planned to discharge home with home health, however, patient states that he will be unable to administer home antibiotics by himself. Dr. Melendez states that patient is non-weight bearing on right foot and given his need for continued IV antibiotics felt that skilled facility would be more appropriate placement for this patient. Spoke with case management in coordination for discharge planning, grateful for their help in placement of this patient. Pending PICC placement.Reviewed labs, Hgb remains stable 7.90, Cr 1.1. Vital signs remain stable. We will continue interventions inpatient. Vitals/I&O/Wt Last Vital Signs Temp 97.8 F 09/23/25 07:38 Pulse 52 L 09/23/25 07:38 Resp 18 09/23/25 07:38 BP 141/84 09/23/25 07:38 Pulse Ox 91 09/23/25 07:38 O2 Del Method Room Air 09/23/25 07:38 09/22/25 09/23/25 09/23/25 22:59 06:59 14:59 Intake Total 730 / 1700 Output Total 950 / 2350 350 / 2700 Balance -220 / -650 -350 / -1000 Weight last 48 hrs Weight 78.471 kg Weight 78.88 kg Weight 78.744 kg Physical Exam 2 Const: COMMON NORMALS: no acute distress and patient oriented x3 HENMT: COMMON NORMALS: normocephalic and Normal external nose present HEAD & SCALP: normocephalic NOSE: Normal external nose present THROAT: p osterior oropharynx abnormal erythema Eye: COMMON NORMALS: Equal, round and reactive pupils present PUPIL: Yes Equal, round and reactive pupils present Resp: COMMON NORMALS: normal respiratory effort, No retractions, No use of accessory muscles and clear to auscultation bilaterally AUSCULTATION: clear to auscultation bilaterally Cardio: COMMON NORMALS: regular rate, regular rhythm, S1 normal heart sound present and S2 normal heart sound present RATE: regular rate RHYTHM: r egular rhythm HEART SOUNDS: S1 normal heart sound present and S2 normal heart sound present GI: COMMON NORMALS: Normal to inspection, nondistended, normoactive bowel sounds present and non-tender Extremity: COMMON NORMALS: no pedal edema NARRATIVE EXTREMITY EXAM: Right foot with no drainage, mild erythema surrounding open wounds. Neuro: COMMON NORMALS: patient oriented x3 and moves all extremities Psych: COMMON NORMALS: mental status grossly normal Data 09/23/25 05:28 09/23/25 05:28 Micro: Microbiology 09/20/25 14:30 Gram Stain - Final Other Source Wound Culture - Preliminary Coag positive Staphylococcus Strep agalactiae - (group b) 09/20/25 14:30 Gram Stain - Final Other Source Wound Culture - Preliminary Coag positive Staphylococcus Strep agalactiae - (group b) 09/20/25 14:30 Anaerobic Culture - Preliminary Other Source 09/20/25 14:30 Anaerobic Culture - Preliminary Other Source A&P Assessment and plan 1. Chronic ulcer of right foot with necrosis of bone: 2. Cellulitis of right lower extremity: 3. Peripheral vascular disease: 4. Diabetic foot infection: 5. Permanent atrial fibrillation: 6. Diabetes mellitus: 7. Chronic anticoagulation: 8. Centrilobular emphysema: 9. Peripheral arterial disease: 10. Anemia: Plan: Chronic right foot wound with tendon exposure to right foot and ankle Cellulitis - Managed by [employer] Technical [employer] , appreciate continued management inpatient, plans to return to the OR tomorrow - S/p I&D 09/20 - Admitting WBC 11.01, CRP 147.3, current WBC 6.96 - Blood Culture x 2 NGTD - Wound Cultures 09/20 with Coag positive staphylococcus and strep agalactiae - ER Provider gave Zyvox and Merrem - Greatly appreciate consultation and antibiotic management with ID - Continue IV antibiotics with Vancomycin and Cefepime, pharmacy to dose/manage vancomycin - Noted that patient is expected a prolonged stay in the hospital Anemia, blood loss and chronic iron defeciency - Admitting Hgb 7.50--<6.80--<7.50--<7.20--<7.90 - s/p 1u pRBC's 09/21 - Ferrous sulfate 325mg BID and ascorbic acid 500mg Daily - Continue to monitor closely DM-II Diabetic Neuropathy - A1c 5.7 - Medium dose SSI, POC - Continue Gabapentin - Monitor PVD Hyperlipidemia - Continue cardio-protective medications Atrial Fibrillation Chronic Anticoagulation - Currently in NSR, rate controlled - Holding Eliquis during hospitalization, VTE with SQ lovenox but held in the setting of anemia, resume when able - Continue Metoprolol and amiodarone COPD - Not in exacerbation - continue home inhaler, encourage use of incentive spirometry - PRN DuoNeb - Supportive measures GERD - Takes Pepcid at home - PPI Oral Candidiasis - Oral Nystatin QID - Much improved appetite and ability to tolerate oral intake BPH - Continue Tamsulosin VTE PPX: SCD's Full dose lovenox when able to resume holding Eliquis GI PPX: PPI Code Status: Full Code PDMP PDMP Reviewed: Last Reviewed 09/23/25 12:36 by Bianca Schmitz, [employer] Attestations 2 Medical Necessity Statement*: Expectation for prolonged hospitalization greater than 2 midnights for right wound infection with tendon exposure need for continued surgical management with podiatry with plans of more surgical interventions, antibiotic management with infectious disease, and complex medical management. Coding Level of Care Code 82284 Diagnoses Chronic ulcer of right foot with necrosis of bone L97.514 Cellulitis of right lower extremity L03.115 Peripheral vascular disease I73.9 Diabetic foot infection E11.628; L08.9 Permanent atrial fibrillation I48.21 Diabetes mellitus E11.9 Chronic anticoagulation Z79.01 Centrilobular emphysema J43.2 Peripheral arterial disease I73.9 Anemia D64.9
[2025-09-23] MEDS: ferrous sulfate EC 325 mg Tablet PO ×2 (08:26→16:40)
--- NOTE | 2025-09-23 12:49 | XR_ITS ---
WS: [id number] XR chest 1V portable [id number] REASON FOR EXAM: post picc insertion FINDINGS: Left arm PICC line has been placed. The tip of the catheter is well beyond the junction of the innominate vein and superior vena cava. There was 1 cm of remaining catheter length. It was advised to advance the catheter of the additional centimeter which would put it well within the distal SVC a position that will be appropriate and ready for use. The case was discussed over the phone with the sand technologist at 1:36 p.m. on 09/23/2025. There is significant tortuosity and ectasia of the thoracic aorta. The heart is enlarged. There are coarse interstitial reticular lung opacities in both lower lung mcgrath. These appear to be chronic. Previously demonstrated peripheral interstitial reticular lung opacities in both lungs haven't resolved. XR/XR chest 1V portable [id number] IMPRESSION: PICC line placement as above. PICC line ready for use. Probably stable chest.
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
--- NOTE | 2025-09-23 20:39 | PC.NURSE ---
patient still not wanting to take insulin
--- NOTE | 2025-09-23 20:46 | USCV_ITS ---
Jace Christie Age: 75 Gender: M : 1950 Exam Date: 09/23/2025 21:17 Ordering Phys: Brandee Durham MD Technologist: YEIMI Exam Location: [facility] [place] Indication: staph auareus bacteremia, assess endocarditis, History of COPD. Long-term smoker continues smoking BP: 147 / 64 HR: 53 Rhythm: Sinus bradycardia Technical Quality: Adequate MEASUREMENTS (Male / Female) Normal Values 2D ECHO LV Diastolic Diameter PLAX 4.3 cm 4.2 - 5.9 / 3.9 - 5.3 cm IVS Diastolic Thickness 2.0 cm 0.6 - 1.0 / 0.6 - 0.9 cm IVS Systolic Thickness 2.1 cm LVPW Diastolic Thickness 2.2 cm 0.6 - 1.0 / 0.6 - 0.9 cm LVPW Systolic Thickness 2.2 cm LVOT Diameter 1.9 cm LV Ejection Fraction 2D Teich 62.1 % LV Ejection Fraction MOD 4C 68.8 % LV Ejection Fraction MOD 2C 74.2 % LV Ejection Fraction 2C AL 74.1 % LA Diameter 3.6 cm Aorta at Sinotubular Diameter 3.4 cm IVC Diameter 1.4 cm M-MODE LA Ao Ratio MM 1.1 AV Cusp Separation MM 1.7 cm DOPPLER AV Peak Velocity 175.0 cm/s LVOT Peak Velocity 92.0 cm/s AV Area Cont Eq vti 1.9 cm squared AV Area Cont Eq pk 1.5 cm squared MV Peak Velocity 95.0 cm/s MV Area PHT 2.2 cm squared Mitral E to A Ratio 1.3 TV Peak Velocity 249.5 cm/s TR Peak Velocity 270.0 cm/s TR Peak Gradient 29.2 mmHg TV Peak E Velocity 65.0 cm/s PV Peak Velocity 126.0 cm/s FINDINGS Left Ventricle Normal left ventricular size and systolic function, EF 68%.no regional wall motion abnormalities. Mild left ventricular hypertrophy. Right Ventricle Normal right ventricular size and systolic function. Right Atrium Mildly increased right atrial size. Left Atrium Mildly increased left atrial size. IA Septum Normal appearance of the interatrial septum. Mitral Valve Trace to mild mitral valve regurgitation. Aortic Valve No gross abnormalities noted Tricuspid Valve Mild tricuspid valve regurgitation. Pulmonic Valve Pulmonic valve not well visualized. Pericardium No pericardial effusion. Aorta Normal aortic annulus size. IVC Inferior vena cava not visualized. CONCLUSIONS Normal left ventricular size and systolic function, EF 68%.no regional wall motion abnormalities. Mild left ventricular hypertrophy. Mild biatrial enlargement Trace to mild mitral valve regurgitation. Mild tricuspid valve regurgitation. Estimated pulmonary artery peak systolic pressure 32 mmHg There is no pericardial effusion. There are no intracardiac masses. Compared to the previous study from 11/17/2024, there may not be significant change Dr Michelle Torres MD [facility] (Electronically Signed) Final Date: 24 September 2025 09:47 S
[2025-09-23] MEDS: ceFAZolin 2,000 mg SDV 2000 MG IVP (20:59)
[2025-09-23] MEDS: morphine 4 mg/mL SDV 1 mL 2 MG IVP (21:01)
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
[2025-09-24] VITALS (22 sets, daily range): BP systolic 84–117; BP diastolic 45–67; PULSE 50–69; RESP 15–18; TEMP 36.3–36.8; O2SAT 92–100
[2025-09-24] MEDS: ceFAZolin 2,000 mg SDV 2000 MG IVP ×3 (04:38→21:15)
[2025-09-24] MEDS: nystatin 100,000 unit/mL UDC 5 mL 400000 UNIT PO ×3 (04:38→21:16)
[2025-09-24] MEDS: oxyCODONE-APAP 5-325 mg Tablet 1 TAB PO ×3 (04:39→21:17)
[2025-09-24 05:40] LABS: Hematocrit 24.8 % (37-53); Hemoglobin 7.60 g/dL (11.27-16.99); Mean Corpuscular HGB Conc 30.6 g/dL (30-55); Mean Corpuscular Hemoglobin 26.6 pg (27-33); Mean Corpuscular Volume 86.7 fl (82-101); Nucleated Red Blood Cells % 0 %; Platelet Count 430 10^3/cmm (157-399); Red Blood Count 2.86 10^6/uL (3.85-5.65); White Blood Count 10.51 10^3/uL (3.29-11.43)
[2025-09-24 05:54] LABS: Alanine Aminotransferase 7 U/L (0-41); Albumin Level 2.6 g/dL (3.5-5.2); Alkaline Phosphatase 78 U/L (40-130); Anion Gap 14.0 (5-19); Aspartate Amino Transferase 11 U/L (0-40); Blood Urea Nitrogen 24 mg/dL (8-23); Calcium 8.2 mg/dL (8.5-10.5); Carbon Dioxide 20 mmol/L (22-29); Chloride 106 mmol/L (98-107); Globulin 3.5 g/dL (1.3-4.6); Glucose 123 mg/dL (65-115); Osmolality Calculated 287 mOsm/kg (285-295); Potassium 4.0 mmol/L (3.5-5.1); Sodium 136 mmol/L (136-145); Total Protein 6.1 g/dL (6.6-8.7)
--- NOTE | 2025-09-24 07:36 | P.PN_ITS ---
Subjective 2 Subjective: Very pleasant 75-year-old male seen and examined at bedside on hospital rounds today. Patient sitting up in bed stating that he is having spasms and pain in his right leg, has not had a bowel movement in the last few days. Will increase bowel regimen today. Patient is n.p.o. awaiting surgical interventions with manager wastewater Dr. Melendez, further interventions per his recommendations. Patient did have positive blood culture, pending repeat blood cultures today, infectious disease Dr. Durham is managing. Vital signs remained stable. Repeat hemoglobin today is stable but low 7.60, will continue to closely monitor. Patient has SNF authorization pending, this is recommended for continued IV antibiotic therapy postsurgical intervention. Greatly appreciate case management and coordination of discharge planning. Vitals/I&O/Wt Last Vital Signs Temp 97.6 F 09/24/25 07:26 Pulse 51 L 09/24/25 07:26 Resp 16 09/24/25 07:26 BP 117/55 09/24/25 07:26 Pulse Ox 95 09/24/25 07:26 O2 Del Method Room Air 09/24/25 07:26 09/23/25 09/24/25 09/24/25 22:59 06:59 14:59 Intake Total 730 / 1690 Output Total 1000 / 2900 300 / 3200 Balance -270 / -1210 -300 / -1510 Weight last 48 hrs Weight 75.07 kg Weight 78.471 kg Weight 78.88 kg Physical Exam 2 Const: COMMON NORMALS: no acute distress and patient oriented x3 HENMT: COMMON NORMALS: normocephalic and Normal external nose present HEAD & SCALP: normocephalic NOSE: Normal external nose present THROAT: p osterior oropharynx abnormal erythema Eye: COMMON NORMALS: Equal, round and reactive pupils present PUPIL: Yes Equal, round and reactive pupils present Resp: COMMON NORMALS: normal respiratory effort, No retractions, No use of accessory muscles and clear to auscultation bilaterally AUSCULTATION: clear to auscultation bilaterally Cardio: COMMON NORMALS: regular rate, regular rhythm, S1 normal heart sound present and S2 normal heart sound present RATE: regular rate RHYTHM: r egular rhythm HEART SOUNDS: S1 normal heart sound present and S2 normal heart sound present GI: COMMON NORMALS: Normal to inspection, nondistended, normoactive bowel sounds present and non-tender Extremity: COMMON NORMALS: no pedal edema NARRATIVE EXTREMITY EXAM: Right foot wounds covered, dressing with scant drainage noted - did not remove dressing. Improved erythema on right calf. Neuro: COMMON NORMALS: patient oriented x3 and moves all extremities Psych: COMMON NORMALS: mental status grossly normal Data 09/24/25 05:04 09/24/25 05:04 Micro: Microbiology 09/24/25 05:04 Blood Culture - Preliminary Blood SPECIMEN COLLECTED 09/24/25 05:12 Blood Culture - Preliminary Blood SPECIMEN COLLECTED 09/20/25 10:55 Blood Culture - Preliminary Blood Staphylococcus species 09/20/25 14:30 Gram Stain - Final Other Source Wound Culture - Preliminary Staphylococcus aureus Strep agalactiae - (group b) 09/20/25 14:30 Anaerobic Culture - Preliminary Other Source 09/20/25 14:30 Anaerobic Culture - Preliminary Other Source A&P Assessment and plan 1. Chronic ulcer of right foot with necrosis of bone: 2. Cellulitis of right lower extremity: 3. Peripheral vascular disease: 4. Diabetic foot infection: 5. Permanent atrial fibrillation: 6. Diabetes mellitus: 7. Chronic anticoagulation: 8. Centrilobular emphysema: 9. Peripheral arterial disease: 10. Anemia: Plan: Chronic right foot wound with tendon exposure to right foot and ankle Osteomyelitis Cellulitis - Managed by Beauty Artist , appreciate continued management inpatient, pending surgical interventions later today - S/p I&D 09/20 - Admitting WBC 11.01, CRP 147.3, current WBC 6.96--<10.51 - Blood Culture 09/20 x 1/2 NGTD, 2/2 with staphylococcus species, pending repeat blood culture x 2 on 09/24 - Wound Cultures 09/20 with Coag positive staphylococcus and strep agalactiae - ER Provider gave Zyvox and Merrem - Greatly appreciate consultation and antibiotic management with ID - Continue IV antibiotics with Vancomycin and Cefepime, pharmacy to dose/manage vancomycin - Noted that patient is expected a prolonged stay in the hospital Anemia, blood loss and chronic iron defeciency - Admitting Hgb 7.50--<6.80--<7.50--<7.20--<7.90--<7.60 - s/p 1u pRBC's 09/21 - Ferrous sulfate 325mg BID and ascorbic acid 500mg Daily - Continue to monitor closely DM-II Diabetic Neuropathy - A1c 5.7 - Medium dose SSI, POC - Continue Gabapentin - Monitor PVD Hyperlipidemia - Continue cardio-protective medications Atrial Fibrillation Chronic Anticoagulation - Currently in NSR, rate controlled - Holding Eliquis during hospitalization, VTE with SQ lovenox but held in the setting of anemia, resume when able - Continue Metoprolol and amiodarone COPD - Not in exacerbation - continue home inhaler, encourage use of incentive spirometry - PRN DuoNeb - Supportive measures GERD - Takes Pepcid at home - PPI Oral Candidiasis - Oral Nystatin QID - Much improved appetite and ability to tolerate oral intake BPH - Continue Tamsulosin Constipation - Bowel regimen with Colace 100mg BID, Senna Lax 8.6 VTE PPX: SCD's Full dose lovenox when able to resume holding Eliquis GI PPX: PPI Code Status: Full Code PDMP PDMP Reviewed: Last Reviewed 09/23/25 12:36 by Bianca Schmitz, APPLICATION CHEMIST Attestations 2 Medical Necessity Statement*: Expectation for prolonged hospitalization greater than 2 midnights for right wound infection with tendon exposure need for continued surgical management with podiatry with plans of more surgical interventions, antibiotic management with infectious disease, and complex medical management. Coding Level of Care Code 32249 Diagnoses Chronic ulcer of right foot with necrosis of bone L97.514 Cellulitis of right lower extremity L03.115 Peripheral vascular disease I73.9 Diabetic foot infection E11.628; L08.9 Permanent atrial fibrillation I48.21 Diabetes mellitus E11.9 Chronic anticoagulation Z79.01 Centrilobular emphysema J43.2 Peripheral arterial disease I73.9 Anemia D64.9
[2025-09-24] MEDS: morphine 4 mg/mL SDV 1 mL 2 MG IVP ×3 (09:44→23:28)
--- NOTE | 2025-09-24 09:57 | P.ANESUD_ITS ---
Pre-Anesthetic Update Pre-Anesthetic Assessment: Date of Surgery/Procedure: 09/24/25 Preop Radha gnosis: Diabetic foot infection right lower extremity. Proposed Procedure: Operation Date: 09/20/25 14:10 Proposed Procedures p Incision And Drainage(Right) - Zachary Melendez DPM Operation Date: 09/24/25 11:00 Proposed Procedures p Incision And Drainage(Right) - Zachary Melendez DPM s Wound Vac Placement right lower extremity(Right) - Zachary Melendez DPM Changes from Pre-Anesthetic Assessment: No changes since patient was last with us on 09/20/2025. K+ 4.0 today Plan [facility]. ASA 4 Labs Last 48hrs: Short CBC 09/23/25 09/24/25 Range/Units 05:28 05:04 WBC 6.96 10.51 (3.29-11.43) 10^ 3/uL Hgb 7.90 L 7.60 L (11.27-16.99) g/ dL Hct 25.2 L 24.8 L (37-53) % MCV 85.1 86.7 (82-101) fl Plt Count 485 H 430 H (157-399) 10^3/c mm Neut % (Auto) 53.7 69.4 % Neut # (Auto) 3.74 7.30 (1.8-7.7) 10^3/u L BMP 09/23/25 09/24/25 05:28 05:04 Sodium 140 136 Potassium 4.5 4.0 Chloride 108 H 106 Carbon Dioxide 23 20 L BUN 24 H 24 H Creatinine 1.1 1.1 Glucose 121 H 123 H Calcium 8.5 8.2 L Cardiac Enzymes 09/23/25 Range/Units 05:28 Creatine Kinase 33 L (39-308) U/L Liver Function 09/23/25 09/24/25 Range/Units 05:28 05:04 Total Bilirubin 0.2 0.2 (0.15-1.2) mg/dL AST 7 11 (0-40) U/L ALT 6 7 (0-41) U/L Alkaline Phosphata se 78 78 (40-130) U/L Albumin 2.8 L 2.6 L (3.5-5.2) g/dL Vitals: Temperature 97.6 F 09/24/25 07:26 Temperature Source Oral 09/24/25 04:00 Pulse Rate 54 L 09/24/25 07:50 Pulse Rhythm Regular 09/21/25 10:10 Pulse Strength 3+ Normal 09/20/25 12:51 Respiratory Rate 18 09/24/25 09:44 Respiratory Effort Spontaneous, Non- Labored 09/23/25 09:58 Respiratory Depth Normal 09/24/25 09:44 Respiratory Patter n Normal 09/23/25 09:58 Blood Pressure 117/55 09/24/25 07:26 Blood Pressure Emmie n 75 09/24/25 07:26 Blood Pressure Pos ition Semi Fowlers 09/23/25 04:00 Pulse Oximetry 94 09/24/25 07:35 Oxygen Delivery Me thod Room Air 09/24/25 07:35 Sepsis Recent Feve r Within 48 Hours Yes 09/20/25 10:42 Cardiac Studies: Echocardiogram 09/23/25 Echocardiogram Limited Views 05/14/23
--- NOTE | 2025-09-24 11:00 | W.PM.OPSUD ---
Surgery/Procedure H&P Update DATE OF PROCEDURE: September 24, 2025 DATE H&P PERFORMED: 09/20/25 H&P UPDATE INFORMATION: I have reviewed H&P completed within last 30 days, I have examined patient prior to procedure, No changes to prior documentation, H&P is in [facility] EMR on date indicated and Risks and benefits of the procedure reviewed PREOP DIAGNOSIS: Diabetic foot infection right lower extremity. PLANNED PROCEDURE: Operation Date: 09/20/25 14:10 Proposed Procedures p Incision And Drainage(Right) - Zachary Melendez DPM Operation Date: 09/24/25 11:00 Proposed Procedures p Incision And Drainage(Right) - Zachary Melendez DPM s Wound Vac Placement right lower extremity(Right) - Zachary Melendez DPM
--- NOTE | 2025-09-24 12:04 | W.PM.BPON ---
Date of Procedure: 09/24/2025 Surgeon: Zachary Melendez DPM Foam Cutting Supervisor(s): Francesco Procedure(s) performed: Incision and debridement of bone cortex and application of biologic graft with wound VAC right lower extremity. Findings of the procedure(s): Devitalized bone medial cuneiform right foot Estimated blood loss: 2 mL Specimen(s) removed: Medial cuneiform right foot sent to microbiology for Gram stain culture and sensitivity. Post-operative diagnosis: Osteomyelitis right foot
--- NOTE | 2025-09-24 12:05 | PM.OP ---
Operative Report Date of procedure: September 24, 2025 Pre-op diagnosis: Diabetes with peripheral neuropathy Peripheral arterial disease Osteomyelitis right foot. Wound exposed to tendon right ankle Wound exposed to tendon right foot Wound exposed to tendon, muscle and fascia right anterior foot and ankle measures 10 cm x 3.5 cm x 1.6 cm, volume 43.982 cm? Wound exposed to tendon, muscle and fascia right posterior ankle and heel measures 8.1 cm x 3.5 cm x 0.4 cm volume 8.9 cm? Post-op diagnosis: Same Post-op findings: Devitalized Achilles tendon and devitalized tibialis anterior tendon right lower extremity. Procedure done: 1) wound bed preparation right lower extremity. CPT code 83653 2) application of skin substitute right lower extremity. CPT code 55102 3) application of wound VAC right lower extremity. CPT code 06402 4) incision of bone cortex right midfoot. CPT code 27713 Implants: Skin carter and Integra bilayer Specimens removed/disposition: Bone medial cuneiform right foot sent to microbiology for Gram stain, culture and sensitivity. Surgeon: Zachary Melendez DPM Conservation Coordinator: See intraoperative documentation Estimated blood loss: 5 mL See intraoperative documentation IV fluids: See intraoperative documentation Complications: none Findings: Devitalized bone medial cuneiform right foot. Brief History: Extensive diabetic ulcerations exposed to tendon and bone right lower extremity requiring staged debridement and limb salvage consisting of application of biologic graft and wound VAC. Procedure: Under mild sedation the patient was brought to the operating room and remained on the gurney in supine position. A timeout was performed. Anesthesia was then administered by the anesthesia service. Well-padded pneumatic tourniquet applied to the right high calf. The right lower extremity was then scrubbed, prepped and draped utilizing normal aseptic technique. Right lower extremity was elevated and tourniquet inflated to 250 mmHg. Attention was directed to full-thickness wounds at the right lower extremity encompassing anterior foot and ankle as well as posterior foot and ankle. Right anterior foot and ankle measures 10 cm x 3.5 cm x 1.6 cm, volume 43.982 cm?. Right posterior ankle and heel measures 8.1 cm x 3.5 cm x 0.4 cm volume 8.9 cm?. Attention was directed to right foot where dissection was carried down to medial cuneiform which was noted to have devitalized poor density bone, bone was incised sharply with pickups and a 15 blade and bone sent to microbiology for Gram stain, culture and sensitivity to help guide long-term antibiotic therapy. Attention was then directed to the right anterior and posterior wounds which were debrided of all devitalized tissue utilizing pickups and a #15 blade with measurements as above predebridement. Postdebridement wound measurements of right anterior ankle and foot measured 10.5 cm x 3.9 cm x 2 cm and right posterior foot and ankle wound 9 cm x 4 cm x 0.5 cm. No further devitalized tissue appreciated. Both wounds were dressed with Integra bilayer with appropriate orientation and secured at the perimeter with skin carter. Final dressing of wound VAC at both anterior and posterior wounds with Adaptic protective layer followed by traditional KCI wound VAC dressing with granula foam with excellent seal set at 125 mm of continuous negative pressure. Dressing consisting of 4 x 4's, Kerlix. Tourniquet was deflated and a hyperemic response is noted to the distal amputation site of the right foot. Patient tolerated the procedure and anesthesia well and was transferred to the PACU with vital signs stable vascular status intact. Following a period of postoperative monitoring he will be transferred back to the floor, plans for PICC line and extended course of IV antibiotics. Will be following up in wound care clinic.
--- NOTE | 2025-09-24 12:32 | ANE.PACU2 ---
Inpatient post-anesthesia follow up: Airway intact: Yes Vital signs: Temperature 97.6 F Pulse Rate 56 Respiratory Rate 16 Blood Pressure 102/55 Pulse Oximetry 94 Oxygen Delivery Me thod Room Air Oxygen Flow Rate 10 Fraction of Inspir ed Oxygen Hydration adequate: Yes Nausea and vomiting: No Pain level: 1 Mental status: Baseline
--- NOTE | 2025-09-24 15:40 | PC.SOCIAL ---
*IMM* CM delivered IMM from [employer] to patient. Patient received a copy. Copy placed in chart, initialed and dated 09/23/25.
[2025-09-24] MEDS: ferrous sulfate EC 325 mg Tablet PO (17:22)
--- NOTE | 2025-09-24 20:14 | P.PN_ITS ---
Subjective 2 Subjective: Infectious disease progress note S/p OR intervention today, calcaneum biopsy taken and sent to micro [facility], no leukocytosis Medications: Reviewed: Yes Vitals/I&O/Wt Last Vital Signs Temp 97.4 F L 09/24/25 19:59 Pulse 52 L 09/24/25 19:59 Resp 16 09/24/25 19:59 BP 99/51 09/24/25 19:59 Pulse Ox 94 09/24/25 19:59 O2 Del Method Room Air 09/24/25 16:00 O2 Flow Rate 10 09/24/25 12:10 09/24/25 09/24/25 09/24/25 06:59 14:59 22:59 Intake Total 0 / 0 1240 / 1240 Output Total 300 / 3200 527 / 527 750 / 1277 Balance -300 / -1510 -527 / -527 490 / -37 Weight last 48 hrs Weight 75.07 kg Weight 78.471 kg Weight 78.88 kg Physical Exam 2 Narrative: Seen via telehealth today awake, alert and oriented surgical dressing in place, not opened for exam today Data 09/24/25 05:04 09/24/25 05:04 Micro: Microbiology 09/20/25 14:30 Gram Stain - Final Other Source Wound Culture - Final Staphylococcus aureus Strep agalactiae - (group b)#2 09/20/25 14:30 Gram Stain - Final Other Source Wound Culture - Final Staphylococcus aureus Strep agalactiae - (group b)#2 09/24/25 11:30 Gram Stain - Final Bone 09/20/25 14:30 Anaerobic Culture - Preliminary Other Source 09/20/25 14:30 Anaerobic Culture - Preliminary Other Source 09/24/25 05:04 Blood Culture - Preliminary Blood SPECIMEN COLLECTED 09/24/25 05:12 Blood Culture - Preliminary Blood SPECIMEN COLLECTED 09/20/25 10:55 Blood Culture - Preliminary Blood Staphylococcus species A&P Assessment and plan 1. Cellulitis of right lower extremity: 2. Peripheral vascular disease: 3. Diabetic foot infection: 4. Permanent atrial fibrillation: 5. Diabetes mellitus: 6. Chronic anticoagulation: 7. Peripheral arterial disease: 8. Chronic ulcer of right foot with necrosis of bone: 9. Staphylococcus aureus bacteremia: this is a presumed diagnosis at this time while pending final identification of the blood staphylococcus isolate Plan: 75M with PAD, Dm , chronic non healing ulcer over the right foot over many months s/p fem pop bypass, past hardware at ankle, currently admitted for worsening wound, cellulitis, exposed tendon and bone anterior wound. Now s/p I&D in the OR earlier this afternoon Wound cx taken from the OR pending at this time received meropenem x 1 and zyvox x 1 in ER. Continue inpatient iv abx however change to cefepime and vancomycin empirically while pending results of cx. Blood cx negative thus far. Will continue to follow 09/21/25: s/p incision and debridement multiple areas down to myofascial layer right lower extremity and excision of right Achilles tendon and tibialis anterior tendon. Necrotic tendon sent intraoperatively to microbiology, cultures pending. Per review o leslie op notes, Extensive wound at the anterior leg extending across the anterior ankle and foot measured 15 cm in length and 4 cm in width with 1 cm depth down to bone. Visible medial cuneiform. Recommend MRI foot to assess for osteomyelitis of cuneiform. Patient denies having been treated for osteomyelitis with iv abx in the recent past. Depending on MRI findings and intra op cx, total course and selection of abx will be finalized. Blood cx so far negative to date. 09/22/25: CT foot taken yesterday instead of MRI due to prior embedded shrapnel. tendon cx with coag + staph, likely staph aureus + grp B streptococcus. CT foot with osteomyelitis of the cuneiform bone. Plan for 6 weeks iv abx course, anticipate with daptomycin 8mg/kg every 24 hrs for treatment. Will continue to follow. D/c cefepime. No gram negatives on cx thus far. Continue iv vancomycin for duration of hospital stay. 09/23/25: Picc line placed this morning. Blood cx from 09/20 reported positive 10/18 with staphylococcus species , presuming staph aureus given flexor tendon cx reported with MSSA and group B strep. Will await final identification of blood isolate. repeat blood cx to establish clearance. Check echocardiogram to evalute for endocarditis. CXR reviewed, noted reticular opacties, which are pre existing on previous CT scans and PET from earlier this year. Currently on iv vancomycin with addition of iv cefazolin today given updated cx results. It appears patient was planned to be discharged to SNF, however currently states that he would like to return home with . Once daily abx regimen will be most feasible for him for home infusion per preference. Therefore, will choos iv daptomycin 8mg/kg every 24 hrs at discharge for 6 weeks duration 09/24/25: s/p Incision and debridement of bone cortex and application of biologic graft with wound VAC right lower extremity. Cuneiform cx sent from OR today. Blood cx from 09/20 remains with staphylococcus sp, not yet updated. Reached out to micro lab to confirm isolate. PCR not reported as staph aureus on prelim report. Echocardiogram TTE without gross vegetations. 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 Repeat blood cx taken this morning. Planned discharge with iv Daptomycin 8mg/kg every 24 hrs for 6 weeks (09/24- 11/05/25). Weekly CBC,creat,LFT, CPK, CRP to be faxed to ID clinic for review. F/up ID clinic on 10/29/24 at 10:30 am. will follow pending cx PDMP PDMP Reviewed: Not Reviewed Attestations 2 Medical Necessity Statement*: per admitting Coding Level of Care Code Acute Code for [facility] Fwd Diagnoses Cellulitis of right lower extremity L03.115 Peripheral vascular disease I73.9 Diabetic foot infection E11.628; L08.9 Permanent atrial fibrillation I48.21 Atrial fibrillation type: permanent Diabetes mellitus E11.9 Chronic anticoagulation Z79.01 Peripheral arterial disease I73.9 Chronic ulcer of right foot with necrosis of bone L97.514 Staphylococcus aureus bacteremia R78.81; B95.61
--- NOTE | 2025-09-24 21:21 | PC.NURSE ---
insulin refused by patient
[2025-09-25] VITALS (11 sets, daily range): BP systolic 109–131; BP diastolic 51–60; PULSE 51–61; RESP 15–20; TEMP 36.5–36.8; O2SAT 91–95
[2025-09-25] MEDS: oxyCODONE-APAP 5-325 mg Tablet 1 TAB PO ×3 (03:38→11:59)
[2025-09-25] MEDS: nystatin 100,000 unit/mL UDC 5 mL 400000 UNIT PO ×2 (04:48→10:49)
[2025-09-25] MEDS: ceFAZolin 2,000 mg SDV 2000 MG IVP ×2 (04:50→11:59)
[2025-09-25] MEDS: ferrous sulfate EC 325 mg Tablet PO (07:51)
[2025-09-25 09:58] LABS: Hematocrit 25.9 % (37-53); Hemoglobin 7.90 g/dL (11.27-16.99); Mean Corpuscular HGB Conc 30.5 g/dL (30-55); Mean Corpuscular Hemoglobin 26.8 pg (27-33); Mean Corpuscular Volume 87.8 fl (82-101); Nucleated Red Blood Cells % 0 %; Platelet Count 455 10^3/cmm (157-399); Red Blood Count 2.95 10^6/uL (3.85-5.65); White Blood Count 9.68 10^3/uL (3.29-11.43)
--- NOTE | 2025-09-25 10:08 | P.DS_ITS ---
Discharge Providers Date of Admission: 09/20/25 11:06 Date of Discharge: September 25, 2025 Attending Provider at Admission: Buck Diamond MD Attending Provider at Discharge: Bianca Schmitz NP Primary Care Provider: MILADIS Leblanc Diagnoses at Discharge Discharge Diagnosis 1. Cellulitis of right lower extremity: 2. Peripheral vascular disease: 3. Diabetic foot infection: 4. Permanent atrial fibrillation: 5. Diabetes mellitus: 6. Chronic anticoagulation: 7. Peripheral arterial disease: 8. Chronic ulcer of right foot with necrosis of bone: 9. Staphylococcus aureus bacteremia: Reason for Visit Reason for Visit: right foot pain, odor Brief History: Admission: Jace Christie is a 75 year old male paroxysmal atrial fibrillation on chronic anticoagulation with Eliquis last dosing last night, diabetes mellitus type 2 with diabetic neuropathy, COPD, chronic wounds to his right foot was seen in the ER by Dr. Segura who states that the patient came in due to worsening symptoms of his right foot infection. Patient is managed outpatient by window and siding craftsman Dr. Melendez who is requested the patient be kept NPO, plans for I&D later today. He stated that this would be an attempt for limb salvage and this patient would have a prolonged hospital admission. Reached out to infectious disease who graciously agrees to consultation and antibiotic management. Patient states sore mouth and pain with swallowing, right foot/leg pain, and fatigue. Patient denies current chest pain, nausea, vomiting, diarrhea, abdominal pain, recent falls, dark or tarry stools, or syncope. Patient does state history of COPD with breathing at his baseline, room air saturation greater than 90%. Patient is agreeable to admission with surgical interventions and management, IV antibiotic therapy, and medical management. All questions and concerns addressed with the patient at bedside today. Hospital Course Hospital Course Chronic right foot wound with tendon exposure to right foot and ankle Osteomyelitis Cellulitis - Managed by Paper Cup Machine Operator , appreciate continued management inpatient, s/p I&D 09/20 and repeat surgical intervention with grafting/wound-vac 09/24. Will follow-up outpatient management. - Admitting WBC 11.01, CRP 147.3, current WBC 6.96--<10.51--<9.68 - Blood Culture 09/20 x 1/2 NGTD, 2/2 with staphylococcus species, pending repeat blood culture x 2 on 09/24 - Wound Cultures 09/20 with Coag positive staphylococcus and strep agalactiae - ER Provider gave Zyvox and Merrem - Greatly appreciate consultation and antibiotic management with ID - treated with IV vancomycin and fefepime - Discharges with outpatient IV antibiotics per : Daptomycin 8mg/kg every 24 hrs for 6 weeks (09/24-11/05/25). Weekly CBC,creat,LFT, CPK, CRP to be faxed to ID clinic for review. F/up ID clinic on 10/29/24 at 10:30 am. will follow pending cx. Anemia, blood loss and chronic iron defeciency - Admitting Hgb 7.50--<6.80--<7.50--<7.20--<7.90--<7.60 - s/p 1u pRBC's 09/21 - Ferrous sulfate 325mg BID and ascorbic acid 500mg Daily - Continue to monitor closely DM-II Diabetic Neuropathy - A1c 5.7 - Medium dose SSI, POC - Continue Gabapentin - Resume home regimen at discharge PVD Hyperlipidemia - Continue cardio-protective medications Atrial Fibrillation Chronic Anticoagulation - Currently in NSR, rate controlled - Held Eliquis during hospitalization, SQ lovenox, resumes Eliquis at discharge - Continue Metoprolol and amiodarone COPD - Not in exacerbation - continue home inhaler, encourage use of incentive spirometry - PRN DuoNeb - Supportive measures GERD - Takes Pepcid at home - PPI Oral Candidiasis - Oral Nystatin QID, continues at discharge - Much improved appetite and ability to tolerate oral intake BPH - Continue Tamsulosin Constipation - Bowel regimen with Colace 100mg BID, Senna Lax 8.6 Discharge: Discharge is in stable condition back to home with home health. Greatly appreciate case management and discharge planning for coordination of IV antibiotic therapy with daily infusions and lab draws per Dr. Durham. Patient will follow-up outpatient with window and siding craftsman Dr. Melendez at next available appointment. Patient is non-weight bearing right leg, verbalized understanding stating that he has a wheelchair for getting around and that when he needs to go from the wheelchair to his toilet that he has a walker and knows to not place a weight on his right lower extremity. Patient is advised to follow-up with primary care provider in 1 to 2 days of discharge and continue home medications as previously prescribed. All questions and concerns addressed with the patient prior to discharge. Physical Exam Const: COMMON NORMALS: no acute distress and patient oriented x3 HENMT: COMMON NORMALS: normocephalic and Normal external nose present HEAD & SCALP: normocephalic NOSE: Normal external nose present THROAT: posterior oropharynx abnormal erythema Eye: COMMON NORMALS: Equal, round and reactive pupils present PUPIL: Yes Equal, round and reactive pupils present Resp: COMMON NORMALS: normal respiratory effort, No retractions, No use of accessory muscles and clear to auscultation bilaterally AUSCULTATION: clear to auscultation bilaterally Cardio: COMMON NORMALS: regular rate, regular rhythm, S1 normal heart sound present and S2 normal heart sound present RATE: regular rate RHYTHM: regular rhythm HEART SOUNDS: S1 normal heart sound present and S2 normal heart sound present GI: COMMON NORMALS: Normal to inspection, nondistended, normoactive bowel sounds present and non-tender Extremity: COMMON NORMALS: no pedal edema NARRATIVE EXTREMITY EXAM: Right foot/ankle covered with wound-vac in place. Improved erythema on right calf. Neuro: COMMON NORMALS: patient oriented x3 and moves all extremities Psych: COMMON NORMALS: mental status grossly normal Discharge Data Studies Completed and Pending Completed Studies During Hospitalization Category Date Time Status CT foot RT wo con* [id number] Routine Cat Scan 09/21/25 16:12 Completed CXRP [XR chest 1V portable [id number]] Routine Exams 09/23/25 12:49 Completed XR ankle RT min 3V* [id number] Stat Exams 09/20/25 11:49 Completed CV. echo complete* [id number] Routine Ultrasound 09/23/25 20:46 Completed Pending at discharge Category Date Time Status Anaerobic Culture Routine Lab 09/20/25 14:30 Results Anaerobic Culture Routine Lab 09/20/25 14:30 Results Anaerobic Culture Routine Lab 09/24/25 11:30 Received Blood Culture AM LABS Lab 09/24/25 05:04 Results Blood Culture Stat Lab 09/20/25 10:55 Results CMP [Comprehensive Metabolic Panel] Routine Lab 09/25/25 09:50 Received Tissue Culture and Gram Stain Routine Lab 09/24/25 11:30 Results Radiology Impressions Ankle X-Ray 09/20/25 11:49 IMPRESSION: Patient is status post amputation at the 1st tarsometatarsal joint level with generalized soft tissue swelling of the foot Postoperative changes as above Foot CT 09/21/25 16:12 IMPRESSION: 1. Postsurgical changes of 1st digit tarsometatarsal joint amputation, 2nd through 5th transmetatarsal amputations and distal tibia/fibula ORIF with diffuse lower extremity soft tissue thickening and swelling suggestive of cellulitis/phlegmonous formation throughout the foot with dorsal predominance. No definitive drainable organized fluid collection. 2. Medial cuneiform osseous erosive changes with adjacent soft tissue ulceration, phlegmon, and trace subcutaneous air concerning for osteomyelitis. 3. Soft tissue wound/ulceration along the posterior and anterior aspect of distal tibia/fibula. Chest X-Ray 09/23/25 12:49 IMPRESSION: PICC line placement as above. PICC line ready for use. Probably stable chest. Laboratory Results WBC 9.68 10^3/uL (3.29-11.43) 09/25/25 09:50 RBC 2.95 10^6/uL (3.85-5.65) L 09/25/25 09:50 Hgb 7.90 g/dL (11.27-16.99) L 09/25/25 09:50 Hct 25.9 % (37-53) L 09/25/25 09:50 MCV 87.8 fl (82-101) 09/25/25 09:50 MCH 26.8 pg (27-33) L 09/25/25 09:50 MCHC 30.5 g/dL (30-55) 09/25/25 09:50 RDW 17.1 % (12.1-15.1) H 09/25/25 09:50 Plt Count 455 10^3/cmm (157-399) H 09/25/25 09:50 MPV 9.0 fL (7.4-10.4) 09/25/25 09:50 Neut % (Auto) 67.1 % 09/25/25 09:50 Lymph % (Auto) 19.1 % 09/25/25 09:50 [place] % (Auto) 8.1 % 09/25/25 09:50 Eos % (Auto) 4.4 % 09/25/25 09:50 Baso % (Auto) 0.7 % 09/25/25 09:50 Neut # (Auto) 6.49 10^3/uL (1.8-7.7) 09/25/25 09:50 Lymph # (Auto) 1.9 10^3/uL (0.8-4.8) 09/25/25 09:50 [place] # (Auto) 0.8 10^3/uL (0.2-0.9) 09/25/25 09:50 Eos # (Auto) 0.4 10^3/uL (0.0-0.8) 09/25/25 09:50 Baso # (Auto) 0.1 10^3/uL (0.0-0.1) 09/25/25 09:50 Nucleated RBC % (auto) 0 % 09/25/25 09:50 Nucleated RBCs # 0.0 /100WBC 09/25/25 09:50 ESR 63 mm/hr (0-10) H 09/20/25 10:54 Sodium 136 mmol/L (136-145) 09/24/25 05:04 Potassium 4.0 mmol/L (3.5-5.1) 09/24/25 05:04 Chloride 106 mmol/L (98-107) 09/24/25 05:04 Carbon Dioxide 20 mmol/L (22-29) L 09/24/25 05:04 Anion Gap 14.0 (5-19) 09/24/25 05:04 BUN 24 mg/dL (8-23) H 09/24/25 05:04 Creatinine 1.1 mg/dL (0.7-1.2) 09/24/25 05:04 GFR Calculation Not Reportable 09/24/25 05:04 Glucose 123 mg/dL (65-115) H 09/24/25 05:04 POC Glucose 138 mg/dL (70-110) H 09/25/25 06:55 Estimat Average Glucose 117 09/21/25 03:19 Hemoglobin A1c 5.7 % (4.0-6.0) 09/21/25 03:19 Lactic Acid 1.0 mmol/L (0.5-2.2) 09/20/25 10:54 Calculated Osmolality 287 mOsm/kg (285-295) 09/24/25 05:04 Calcium 8.2 mg/dL (8.5-10.5) L 09/24/25 05:04 Magnesium 1.9 mg/dL (1.7-2.3) 09/23/25 05:28 Iron 13 ug/dL (59-158) L 09/21/25 03:19 TIBC 124 mcg/dl 09/21/25 03:19 % Saturation 10.4 % (20-50) L 09/21/25 03:19 Unsat Iron Binding 111 ug/dL (112-347) L 09/21/25 03:19 Total Bilirubin 0.2 mg/dL (0.15-1.2) 09/24/25 05:04 AST 11 U/L (0-40) 09/24/25 05:04 ALT 7 U/L (0-41) 09/24/25 05:04 Alkaline Phosphatase 78 U/L (40-130) 09/24/25 05:04 Creatine Kinase 33 U/L (39-308) L 09/23/25 05:28 C-Reactive Protein 147.3 mg/L (0.0-4.9) H 09/20/25 10:54 Total Protein 6.1 g/dL (6.6-8.7) L 09/24/25 05:04 Albumin 2.6 g/dL (3.5-5.2) L 09/24/25 05:04 Globulin 3.5 g/dL (1.3-4.6) 09/24/25 05:04 Triglycerides 90 mg/dL (0-150) 09/21/25 03:19 Cholesterol 85 mg/dL (0-200) 09/21/25 03:19 LDL Cholesterol, Calc 44 mg/dL (50-129) L 09/21/25 03:19 HDL Cholesterol 23 mg/dL (60-100) L 09/21/25 03:19 LDL/HDL Ratio 1.91 RATIO (0.00-3.22) 09/21/25 03:19 Cholesterol/HDL Ratio 3.70 mg/dL (1.0-5.00) 09/21/25 03:19 TSH 1.14 uIU/mL (0.27-4.20) 09/21/25 03:19 Vancomycin Trough 29.4 ug/mL (10-15) H* 09/23/25 05:28 Blood Type O Positive 09/21/25 08:21 Rho(D) Type Rh positive 09/21/25 08:21 Antibody Screen Negative 09/21/25 08:21 Crossmatch See Detail 09/21/25 08:21 Vitals Last Vital Signs Temp 98.0 F 09/25/25 05:16 Pulse 51 L 09/25/25 08:29 Resp 16 09/25/25 08:00 BP 131/60 09/25/25 08:29 Pulse Ox 95 09/25/25 08:29 O2 Del Method Room Air 09/25/25 08:29 O2 Flow Rate 10 09/24/25 12:10 Discharge Plan Discharge Patient Disposition: Home Health Service Condition: Stable Prescriptions: New nystatin 100,000 unit/mL Suspension 400,000 unit PO QID 10 Days Qty: 160 0RF ascorbic acid (vitamin C) [Vitamin C] 500 mg Tablet 500 mg PO DAILY 30 Days Qty: 30 0RF pantoprazole 40 mg Tablet,Delayed Release (Dr/Ec) 40 mg PO DAILY 60 Days Qty: 60 0RF docusate sodium 100 mg Capsule 100 mg PO BID 14 Days Qty: 28 0RF ferrous sulfate 325 mg (65 mg iron) Tablet,Delayed Release (Dr/Ec) 325 mg PO BIDWM 30 Days Qty: 60 0RF Continued potassium chloride 20 mEq tablet extended release 20 meq PO BID Qty: 60 2RF furosemide 40 mg tablet 40 mg PO QAM diclofenac sodium [Voltaren Arthritis Pain] 1 % gel 2 g topical QID 30 Days Qty: 150 4RF Rx Instructions: apply to single elbow, wrist or hand; for hand includes palm/fingers/back of hand oxycodone 5 mg tablet 5 mg PO Q8H PRN (Reason: pain) 5 Days Qty: 15 0RF Eliquis 5 mg tablet 5 mg PO BID hydrocodone-acetaminophen 5-325 mg tablet 1 tab PO Q8H 7 Days Qty: 21 0RF Breztri Aerosphere 160-9-4.8 mcg/actuation HFA aerosol inhaler 2 inh inhalation BID Qty: 10.7 12RF acetaminophen 500 mg Tablet 1,000 mg PO Q6H PRN (Reason: Pain) 14 Days Qty: 20 0RF metoprolol tartrate 50 mg Tablet 25 mg PO BID rosuvastatin 20 mg Tablet 10 mg PO DAILY tamsulosin 0.4 mg Capsule 0.8 mg PO BEDTIME albuterol sulfate 90 mcg/actuation HFA aerosol inhaler 2 puff inhalation QID PRN (Reason: shortness of breath or wheezing) nitroglycerin 0.4 mg tablet, sublingual 0.4 mg sublingual Q5M PRN (Reason: chest pain) Qty: 25 0RF Rx Instructions: do not exceed 3 doses per episode gabapentin 100 mg Capsule 100 mg PO TID amiodarone [Pacerone] 200 mg tablet 200 mg PO DAILY ipratropium-albuterol 0.5 mg-3 mg(2.5 mg base)/3 mL Solution For Nebulization 3 ml INHALATION QID PRN (Reason: Shortness Of Breath) temazepam 15 mg capsule 15 mg PO BEDTIME PRN (Reason: Sleep) baclofen 10 mg Tablet 10 mg PO BID PRN (Reason: Pain) cholecalciferol (vitamin D3) [Vitamin D3] 10 mcg (400 unit) Tablet 10 mcg PO DAILY Held ibuprofen [Advil] 200 mg Tablet 400 mg PO Q6H PRN (Reason: Fever Or Pain) Hold Instructions: Resume on 10/15/25. Please review with PCP before resuming Discontinued doxycycline hyclate 100 mg capsule 100 mg PO BID 7 Days Qty: 14 0RF No Action (DME) Cam boot to right See Rx Instructions .Route .MEDSUPPLY Qty: 1 0RF Rx Instructions: As directed (DME) Diabetic shoes See Rx Instructions .ROUTE .MEDSUPPLY Qty: 1 0RF Rx Instructions: With 3 pairs of inserts, toe filler to the right (DME) glucometer testing kit See Rx Instructions .Route .MEDSUPPLY Qty: 1 0RF Rx Instructions: As directed (DME) lancets Misc See Rx Instructions .Route Qty: 200 0RF Rx Instructions: check bs tid (DME) strips See Rx Instructions .Route .MEDSUPPLY Qty: 100 0RF Rx Instructions: check bs tid Discharge Order = DC NOW: Discharge Order (Routine); Ordered 09/25/25 Ordered By: Bianca Schmitz Referrals: [facility] [Outside] [facility] [Outside] Zachary Melendez DPM [Physician, Podiatry] - 10/07/25 8:15 am Referral Note: Brandee Durham MD [Hospitalist, Hospitalist] - 10/29/25 10:30 am Referral Note: Laureen Krishna FNP [Primary Care Provider, Nurse Practitioner] - 09/28/25 3:30 pm Discharge Diet: Diabetic Discharge Activity: Limit activity as instructed Patient Instructions: Nystatin (By mouth), Daptomycin (By injection), Acute Wound Care (DC), PICC (Peripherally Inserted Central Catheter) (GEN), Opioid Safety, Post Anesthesia Care, Patient Portal & Corky Instructions Discharge Attestations Time Spent in Discharge Care*: greater than 30 min Quality Metrics Clinical Quality Measures [ No reported AMI, CVA or VTE this stay] Coding Level of Care Code 78229 Diagnoses Cellulitis of right lower extremity L03.115 Peripheral vascular disease I73.9 Diabetic foot infection E11.628; L08.9 Permanent atrial fibrillation I48.21 Atrial fibrillation type: permanent Diabetes mellitus E11.9 Chronic anticoagulation Z79.01 Peripheral arterial disease I73.9 Chronic ulcer of right foot with necrosis of bone L97.514 Staphylococcus aureus bacteremia R78.81; B95.61
[2025-09-25 10:14] LABS: Alanine Aminotransferase < 5 U/L (0-41); Albumin Level 2.8 g/dL (3.5-5.2); Alkaline Phosphatase 85 U/L (40-130); Aspartate Amino Transferase 10 U/L (0-40); Blood Urea Nitrogen 27 mg/dL (8-23); Calcium 8.5 mg/dL (8.5-10.5); Carbon Dioxide 23 mmol/L (22-29); Chloride 104 mmol/L (98-107); Globulin 3.7 g/dL (1.3-4.6); Glucose 124 mg/dL (65-115); Osmolality Calculated 289 mOsm/kg (285-295); Sodium 136 mmol/L (136-145); Total Protein 6.5 g/dL (6.6-8.7)
[2025-09-25 10:16] LABS: Anion Gap 13.5 (5-19); Potassium 4.5 mmol/L (3.5-5.1)
--- NOTE | 2025-09-25 11:21 | PC.SOCIAL ---
IMM Updated Updated pt on IMM. No questions voiced. Provided a copy to pt. Initialed, dated, & timed copy in chart.
[2025-09-25] MEDS: DAPTOmycin 500 MG in sodium chloride 0.9% (100 ml) 100 ML 100 MG IV (13:24)
--- NOTE | 2025-09-25 13:37 | P.PN_ITS ---
Subjective 2 Subjective: 3 days status post extensive incision an d debridement multiple areas down to myofascial layer right lower extremity. Tolerating regular diet. States that pain medication is adequate and he is comfortable with his pain regimen. Vitals/I&O/Wt Last Vital Signs Temp 97.7 F 09/25/25 11:14 Pulse 51 L 09/25/25 11:14 Resp 18 09/25/25 11:59 BP 110/55 09/25/25 11:14 Pulse Ox 92 09/25/25 11:14 O2 Del Method Room Air 09/25/25 11:14 O2 Flow Rate 10 09/24/25 12:10 09/24/25 09/25/25 09/25/25 22:59 06:59 14:59 Intake Total 1240 / 1240 360 / 1600 Output Total 750 / 1277 75 / 1352 700 / 700 Balance 490 / -37 285 / 248 -700 / -700 Weight last 48 hrs Weight 165 lb Weight 165 lb 8 oz Physical Exam 2 Narrative: GENERAL: Patient is alert and oriented ?3 and in no acute distress. The following is a focused right lower extremity exam. VASCULAR: Dorsalis pedis and posterior tibial arteries diminished. NEUROLOGICAL: Protective sensation diminished. DERMATOLOGICAL: Surgical dressings are clean and dry no strikethrough bleeding or drainage, no erythema or streaking proximal to the dressings. MUSCULOSKELETAL: Status post right transmetatarsal amputation. Data 09/25/25 09:50 09/25/25 09:50 Micro: Microbiology 09/20/25 10:54 Blood Culture - Final Blood NO GROWTH AFTER 5 DAYS 09/24/25 11:30 Gram Stain - Final Bone Tissue Culture - Preliminary Coag positive Staphylococcus 09/24/25 05:04 Blood Culture - Preliminary Blood NEGATIVE TO DATE 09/24/25 05:12 Blood Culture - Preliminary Blood NEGATIVE TO DATE 09/20/25 14:30 Gram Stain - Final Other Source Wound Culture - Final Staphylococcus aureus Strep agalactiae - (group b)#2 09/20/25 14:30 Gram Stain - Final Other Source Wound Culture - Final Staphylococcus aureus Strep agalactiae - (group b)#2 09/20/25 14:30 Anaerobic Culture - Preliminary Other Source 09/20/25 14:30 Anaerobic Culture - Preliminary Other Source A&P Assessment and plan 1. Diabetic peripheral neuropathy associated with type 2 diabetes mellitus: 2. Cellulitis of right lower extremity: 3. 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 Peripheral arterial disease: Plan: Patient admitted to hospital service for cellulitis right lower extremity with ulcerations to the right lower extremity exposed to necrotic tendon. Patient wishes to pursue aggressive limb salvage efforts is not ready to proceed with below-knee amputation yet. He had a recent revascularization attempt to the right lower extremity done at [facility]. - Nonweightbearing right lower extremity. - Incision and debridement right lower extremity multiple areas down to myofascial layer and excision of right Achilles tendon and tibialis anterior tendon performed 09/20/2025. - IV antibiotics per hospitalist team - CT scan concerning for osteomyelitis of the medial cuneiform right foot. - Status post multiple debridements and application of biologic graft with wound VAC performed 09/24/2025 Will follow-up outpatient wound care and podiatry clinics. PDMP PDMP Reviewed: Not Reviewed Attestations 2 Medical Necessity Statement*: deferred to primary Coding Level of Care Code Acute Code for [facility] Diagnoses Diabetic peripheral neuropathy associated with type 2 diabetes mellitus E11.42 Cellulitis of right lower extremity L03.115 Chronic ulcer of great toe of right foot with necrosis of muscle L97.513 Peripheral arterial disease I73.9
== END 2025-09-25 14:56 | disposition home health service (06) | DRG 264 ==
LOC: ER 11:33 → MEDSURG 11:53
PROVIDERS: Podiatrist Foot & Ankle Surgery; Student in an Organized Health Care Education/Training Program; Admitting Provider Family Medicine; Emergency Provider Emergency Medicine; PCP Nurse Practitioner; Visit Provider Registered Nurse
PROC: 0HRMXK3 Replacement of Right Foot Skin with Nonautologous Tissue Substitute, Full Thickness, External Approach (ICD-10-PCS; principal; 2025-09-24 11:00)
PROC: 0HRMXK3 Replacement of Right Foot Skin with Nonautologous Tissue Substitute, Full Thickness, External Approach (ICD-10-PCS; 2025-09-24 11:00)
DX: E11.52 Type 2 diabetes mellitus with diabetic peripheral angiopathy with gangrene (principal); B37.0 Candidal stomatitis; L03.115 Cellulitis of right lower limb; I48.21 Permanent atrial fibrillation; M86.9 Osteomyelitis, unspecified; E11.69 Type 2 diabetes mellitus with other specified complication; E11.621 Type 2 diabetes mellitus with foot ulcer; D50.0 Iron deficiency anemia secondary to blood loss (chronic); E11.42 Type 2 diabetes mellitus with diabetic polyneuropathy; B95.1 Streptococcus, group B, as the cause of diseases classified elsewhere; K59.00 Constipation, unspecified; F17.210 Nicotine dependence, cigarettes, uncomplicated; B95.61 Methicillin susceptible Staphylococcus aureus infection as the cause of diseases classified elsewhere; N40.0 Benign prostatic hyperplasia without lower urinary tract symptoms; L97.514 Non-pressure 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; K21.9 Gastro-esophageal reflux disease without esophagitis; J43.2 Centrilobular emphysema; E78.5 Hyperlipidemia, unspecified; Z79.01 Long term (current) use of anticoagulants; Z79.899 Other long term (current) drug therapy; Z88.5 Allergy status to narcotic agent; Z86.16 Personal history of COVID-19; Z89.431 Acquired absence of right foot
CPT/HCPCS: 36415; 36416; 36430; 36573; 36592; 51702; 51798; 71045; 73610; 73700; 80053; 80061; 80202; 82550; 82962; 83036; 83540; 83550; 83605; 83735; 84443; 85014; 85018; 85025; 85651; 86140; 86850; 86900; 86920; 87040; 87070; 87075; 87077; 87150; 87176; 87186; 87205; 93306; 94640; 96365; 96372; 96375; 97161; 97165; 99285; C1052; C9363; J0690; J0692; J0878; J1642; J1650; J1815; J2020; J2185; J2270; J2704; J3010; J3373; J3480; J7030; J7626; J9999; P9016

== ENCOUNTER → 2025-09-28 13:52 | Outpatient (BNVA) | payer OTHER, SELFPAY | PROVIDERS: PCP Nurse Practitioner; Visit Provider Thoracic Surgery (Cardiothoracic Vascular Surgery) | DX: I96 Gangrene, not elsewhere classified (principal); L89.612 Pressure ulcer of right heel, stage 2; I87.2 Venous insufficiency (chronic) (peripheral); L97.511 Non-pressure chronic ulcer of other part of right foot limited to breakdown of skin | CPT/HCPCS: 99212; A6250 ==

== ENCOUNTER 2025-10-02 16:08 | Outpatient (CLI) | payer OTHER, SELFPAY ==
[2025-10-02 16:16] LABS: Hematocrit 27.8 % (37-53); Hemoglobin 9.10 g/dL (11.27-16.99); Mean Corpuscular HGB Conc 32.7 g/dL (30-55); Mean Corpuscular Hemoglobin 27.3 pg (27-33); Mean Corpuscular Volume 83.5 fl (82-101); Nucleated Red Blood Cells % 0 %; Platelet Count 415 10^3/cmm (157-399); Red Blood Count 3.33 10^6/uL (3.85-5.65); White Blood Count 7.49 10^3/uL (3.29-11.43)
[2025-10-02 17:03] LABS: Alanine Aminotransferase < 5 U/L (0-41); Albumin Level 3.3 g/dL (3.5-5.2); Alkaline Phosphatase 95 U/L (40-130); Aspartate Amino Transferase 10 U/L (0-40); Globulin 3.4 g/dL (1.3-4.6); Total Protein 6.7 g/dL (6.6-8.7)
== END 2025-10-02 16:09 | disposition home or self-care (01) ==
PROVIDERS: PCP Nurse Practitioner; Visit Provider Student in an Organized Health Care Education/Training Program
DX: M86.9 Osteomyelitis, unspecified (principal); T81.329A Deep disruption or dehiscence of operation wound, unspecified, initial encounter; X58.XXXA Exposure to other specified factors, initial encounter
CPT/HCPCS: 80076; 82550; 82565; 85025; 86140

== ENCOUNTER → 2025-10-05 13:51 | Outpatient (BNVA) | payer OTHER, SELFPAY | PROVIDERS: PCP Nurse Practitioner; Visit Provider Thoracic Surgery (Cardiothoracic Vascular Surgery) | DX: I96 Gangrene, not elsewhere classified (principal); L89.612 Pressure ulcer of right heel, stage 2; I87.2 Venous insufficiency (chronic) (peripheral); L97.511 Non-pressure chronic ulcer of other part of right foot limited to breakdown of skin | CPT/HCPCS: 97605; A6237 ==

== ENCOUNTER → 2025-10-07 07:31 | Outpatient (BNVA) | payer OTHER, SELFPAY | PROVIDERS: PCP Nurse Practitioner; Visit Provider Podiatrist Foot & Ankle Surgery | DX: E11.621 Type 2 diabetes mellitus with foot ulcer (principal); L97.513 Non-pressure chronic ulcer of other part of right foot with necrosis of muscle; E11.42 Type 2 diabetes mellitus with diabetic polyneuropathy; L03.115 Cellulitis of right lower limb | CPT/HCPCS: 99213 ==

== ENCOUNTER → 2025-10-12 13:04 | Outpatient (BNVA) | payer OTHER, SELFPAY | PROVIDERS: PCP Nurse Practitioner; Visit Provider Thoracic Surgery (Cardiothoracic Vascular Surgery) | DX: I96 Gangrene, not elsewhere classified (principal); L89.612 Pressure ulcer of right heel, stage 2; I87.2 Venous insufficiency (chronic) (peripheral); L97.511 Non-pressure chronic ulcer of other part of right foot limited to breakdown of skin | CPT/HCPCS: 97597; 97598; A6021; A6237 ==

== ENCOUNTER 2025-10-14 15:03 | Outpatient (CLI) | payer OTHER, SELFPAY ==
[2025-10-14 15:14] LABS: Hematocrit 26.3 % (37-53); Hemoglobin 8.40 g/dL (11.27-16.99); Mean Corpuscular HGB Conc 31.9 g/dL (30-55); Mean Corpuscular Hemoglobin 26.8 pg (27-33); Mean Corpuscular Volume 83.8 fl (82-101); Platelet Count 285 10^3/cmm (157-399); Red Blood Count 3.14 10^6/uL (3.85-5.65); White Blood Count 7.81 10^3/uL (3.29-11.43)
[2025-10-14 15:38] LABS: Alanine Aminotransferase 6 U/L (0-41); Albumin Level 3.2 g/dL (3.5-5.2); Alkaline Phosphatase 95 U/L (40-130); Aspartate Amino Transferase 12 U/L (0-40); Globulin 2.6 g/dL (1.3-4.6); Total Protein 5.8 g/dL (6.6-8.7)
[2025-10-14 15:56] LABS: Absolute Segmented Neutrophil 5.2 10/cmm (1.6-7.1); Atypical Lymphs 4.0 % (0-5); Band Neutrophils Absolute 0.0 10^3/cmm (0.0-1.2); Total Cells Counted 100 (0-100)
[2025-10-14 15:57] LABS: Anisocytosis 1+; Microcytosis 1+
[2025-10-14 15:58] LABS: Schistocytes Trace
[2025-10-14 15:59] LABS: Acanthocytes 1+
== END 2025-10-14 15:04 | disposition home or self-care (01) ==
PROVIDERS: PCP Nurse Practitioner; Visit Provider Nurse Practitioner
DX: T81.329A Deep disruption or dehiscence of operation wound, unspecified, initial encounter (principal); X58.XXXA Exposure to other specified factors, initial encounter
CPT/HCPCS: 80076; 82550; 82565; 85007; 85027; 86140